=== PATIENT | female | born 1945 | race Caucasian/White ===

== ENCOUNTER → 2018-03-08 12:49 | Outpatient (CLI) | payer MEDICARE, SELFPAY ==
--- NOTE | 2018-03-08 12:53 | BD_ITS ---
STUDY: DUAL ENERGY X-RAY ABSORPTIOMETRY / DXA REASON FOR EXAM: Female, 72 years old. The patient is postmenopausal. Loss of height. TECHNIQUE: Bone Mineral Density (BMD) measurements of both forearms were obtained. The patient is status post bilateral hip replacement. COMPARISON: None. FINDINGS: Right Forearm: g/cm2 (0.949) / T-score (0.7) / Z-score (2.6) Left Forearm: g/cm2 (0.993) / T-score (1.2) / Z-score (3.1) BD/Dexa Bone Density/Append Skel IMPRESSION: The patient is considered normal as outlined below according to World Ervin Organization (WHO) criteria with a low fracture risk. Reference Information: The T-score is the number of standard deviations above or below the standard which is normal for young adults at their peak bone mineral density. The World Health Organization (WHO) interprets the T-scores as follows: Above -1 Normal bone density Between -1 and -2.5 Osteopenia Equal to / or below -2.5 Osteoporosis As a practical clinical guideline, osteopenia may be graded as follows: Mild -1 through -1.5 Moderate -1.6 through -2.0 Severe -2.1 through -2.4 The Z-score is the number of standard deviations above or below age-matched controls. A Z-score of less than -1.5 would be considered abnormal. References: 1. NIH Osteoporosis and Related Bone Diseases http://www.osteo.org 2. International Society for Clinical Densitometry http://www.iscd.org 3. National Osteoporosis Foundation http://www.nof.org Electronically Signed: Bo Chan MD at 9:26 EDT Tel [phone], Service support ,
--- NOTE | 2018-03-08 12:54 | BI_ITS ---
MAMMOGRAPHY - BILATERAL SCREENING REASON FOR EXAM: Female, 72 years old. Routine annual screening examination. PERTINENT HISTORY: Non-contributory. TECHNIQUE: Digital bilateral breast shawn (3D mammographic acquisition) in the CC and MLO projections. 2-D mediolateral oblique (MLO) and craniocaudad (CC) views of both breasts were obtained. CAD: Full Field Digital Mammography with Computer Added Detection was performed. COMPARISON: Comparison is made with prior study dated July 06, 2016 and June 18, 2015. FINDINGS: Breast Composition: The breasts are almost entirely fatty. There are no dominant masses or suspicious calcifications. No other significant abnormalities are identified. There has been no significant change since the prior study. BI/SCREENING MAMM (CAD), BILAT IMPRESSION: Stable bilateral screening mammogram. Yearly follow-up mammogram recommended. (A) ASSESSMENT CATEGORY: BIRADS Category 1: Negative. A letter regarding these results will be sent to the patient by the facility within 30 days. Approximately 10% of breast cancers are not detected by mammography. A normal mammogram should not delay biopsy of a clinically suspicious abnormality. [id number] Electronically Signed: Bo Chan MD at 8:37 EDT Tel [phone], Service support ,
== END ==
PROVIDERS: Family Provider Internal Medicine; PCP Internal Medicine; Visit Provider Internal Medicine
DX: Z12.31 Encounter for screening mammogram for malignant neoplasm of breast (principal); Z78.0 Asymptomatic menopausal state
CPT/HCPCS: 77063; 77067; 77081

== ENCOUNTER → 2019-01-08 10:49 | Outpatient (CLI) | payer MEDICARE, SELFPAY ==
[2017-01-21 15:50] VITALS: BMI 50.3
[2019-01-08 12:17] LABS: Color, Urine Yellow (Yellow); Glucose, Dipstick Normal (Normal); Ketone-Dipstick Negative (Negative); Leukocyte Esterase-Dipstick 100 /ul (Negative); Nitrite-Dipstick Negative (Negative); Occult Blood-Urine Negative /ul (Negative); Protein-Dipstick 15 mg/dl (Negative); Specific Gravity, Urine 1.025 (1.002-1.030); Urine Bilirubin Dipstick Negative (Negative); Urine Clarity Sl. Cloudy (Clear); Urine Urobilinogen Normal (Normal)
[2019-01-08 12:26] LABS: Absolute Lymphocyte Count 1.03 X10^3/ul (0.83-4.51); Absolute Neutrophil Count 9.6 X10^3/uL (2.0-7.7); Basophil# 0.02 X10^3/uL; Basophil% 0.2 % (0-1); Eosinophil# 0.37 X10^3/uL; Hematocrit 39.7 % (37-47); Hemoglobin 11.7 g/dl (12.0-15.0); Lymphocyte # 1.03 X10^3/ul (4.0); Lymphocyte % 8.3 % (19-41); Mean Corp Hgb Conc 29.5 g/gl (32-36); Mean Corpuscular Hgb 23.9 pg (27.0-32.0); Mean Corpuscular Volume 81.2 fL (81-99); Mean Platelet Vol. 9.1 fl (6.2-12.0); Monocyte# 1.35 X10^3/uL; Monocyte% 10.8 % (0-10); Neutrophil # 9.64 X10^3/uL (2.7-7.7); Neutrophil % 77.3 % (47-70); Platelet Count 484 K/mm3 (150-450); RBC Distribution Width CV 16.3 % (11.6-14.6); RBC Distribution Width SD 47.7 fl (35.1-43.9); Red Blood Count 4.89 M/mm3 (4.2-5.4); White Blood Count 12.5 K/mm3 (4.4-11.0)
[2019-01-08 12:36] LABS: Microalbumin,Random Urine 13.2 mg/L (NO RANGE EST.); Microalbumin:Creatinine Ratio 6.7 mg/g CRE (<30 mg/g CRE)
[2019-01-08 12:38] LABS: POSITIVE COUNT NO; POSITIVE DIFFERENTIAL NO; POSITIVE MORPHOLOGY NO
[2019-01-08 12:55] LABS: Vitamin D,25 Hydroxy 34.7 ng/mL (29.95-100.01)
[2019-01-08 12:56] LABS: ALB/GLOB Ratio 0.5 RATIO (0.9-2.4); AST(SGOT) 14 U/L (15-37); Alanine Aminotransfer ALT/SGPT 14 U/L (13-56); Albumin, Serum 2.9 g/dL (3.2-5.0); Alkaline Phosphatase 103 U/L (45-117); Anion Gap 10 (5-15); BUN 13 mg/dL (7-18); BUN/Creat Ratio 14.7 RATIO (10-20); Chloride 101 mmol/L (98-107); Creatinine, Serum 0.89 mg/dL (0.55-1.02); EST Glomerular Filtration Rate 67 mL/min (>60); Est Glom Filt Rate - Afr Amer 81 mL/min (>60); Globulin 5.3 g/dL (2.2-4.2); Glucose 91 mg/dL (74-106); Potassium 4.2 mmol/L (3.5-5.1); Protein, Total 8.2 g/dL (6.4-8.2); Sodium Level 140 mmol/L (136-145); Thyroid Stim Hormone (TSH) 2.84 uIU/mL (0.358-3.74)
[2019-01-09 20:07] LABS: CHOLESTEROL TOTAL 118 mg/dL (100-199); HDL-C 61 mg/dL (>39); HDL-P TOTAL 32.5 umol/L (>=30.5); SMALL LDL-P 259 nmol/L (<=527); TRIGLYCERIDES 77 mg/dL (0-149)
[2019-01-11 09:26] LABS: INSULIN RESISTANCE SCORE <25 (<=45); LDL SIZE 20.6 nm (>20.5); LDL-C 42 mg/dL (0-99); LDL-P 438 nmol/L (<1000)
== END ==
PROVIDERS: Family Provider Internal Medicine; PCP Internal Medicine; Referring Provider Internal Medicine; Visit Provider Internal Medicine
DX: E11.29 Type 2 diabetes mellitus with other diabetic kidney complication (principal); E11.65 Type 2 diabetes mellitus with hyperglycemia; E78.00 Pure hypercholesterolemia, unspecified; E55.9 Vitamin D deficiency, unspecified
CPT/HCPCS: 36415; 80053; 80061; 81002; 82043; 82306; 82570; 83704; 84443; 85025

== ENCOUNTER 2019-03-05 11:51 | Inpatient (IN) | payer MEDICARE, SELFPAY ==
[2019-03-05] VITALS (12 sets, daily range): BP systolic 74–122; BP diastolic 31–68; PULSE 68–108; RESP 14–20; TEMP 36.4–36.6; O2SAT 94–99; BMI 43.8; BMI 43.4
[2019-03-05 13:11] LABS: Absolute Lymphocyte Count 1.07 X10^3/ul (0.83-4.51); Absolute Neutrophil Count 18.6 X10^3/uL (2.0-7.7); Basophil# 0.01 X10^3/uL; Hematocrit 38.4 % (37-47); Hemoglobin 12.5 g/dl (12.0-15.0); Lymphocyte # 1.07 X10^3/ul (4.0); Mean Corp Hgb Conc 32.6 g/gl (32-36); Mean Corpuscular Hgb 23.7 pg (27.0-32.0); Mean Corpuscular Volume 72.9 fL (81-99); Monocyte# 1.49 X10^3/uL; Neutrophil # 18.63 X10^3/uL (2.7-7.7); Neutrophil % 87.3 % (47-70); POSITIVE COUNT NO; POSITIVE DIFFERENTIAL NO; POSITIVE MORPHOLOGY NO; Platelet Count 353 K/mm3 (150-450); RBC Distribution Width CV 17.5 % (11.6-14.6); RBC Distribution Width SD 45.8 fl (35.1-43.9); Red Blood Count 5.27 M/mm3 (4.2-5.4); White Blood Count 21.4 K/mm3 (4.4-11.0)
[2019-03-05] MEDS: 0.9% Normal Saline 1,000 ML 1000 ML IV ×2 (13:13→14:40)
--- NOTE | 2019-03-05 13:16 | ED.RN ---
TRIAGE CHARTED BY THIS RN, FINGERPRINT SIGNED ON ANOTHER RN.
--- NOTE | 2019-03-05 13:22 | ED.DCSUM_ITS ---
History of Present Illness Chief Complaint: Dizziness Detail of Chief Complaint: Patient's definition of dizziness lightheadedness and wooziness with standi Informant: Patient Onset: Yesterday Context: Sudden Onset Timing: Intermittent Quality: Orthostatic Location: Home Current Severity: - - Absent Maximum Severity: Severe Worsened by: With standing Relieved by: Nothing Associated Symptoms: Vomiting last evening and diarrhea last evening and this morning Narrative: Patient is an elderly woman who presents with orthostatic symptoms. She reports vomiting and diarrhea that started last evening. She states her blood pressure medication dose was doubled several weeks ago. She reports poor p.o. intake. She does report dry mouth and thirst. She also reports blurred vision. She denies headache. Denies trouble with speech or swallowing. She denies auditory symptoms. She denies cardiac or respiratory symptoms. She denies dysuria, frequency or urgency. She does report decreased urine output. She has wraps both legs secondary lymphedema. She has history of peripheral arterial disease. She states she saw her primary care provider 2 to 3 weeks ago. Prior similar symptoms: No Recent Illness/Hospitalization: No - Past Medical History (1) Osteoarthritis Status: Acute (2) Dyslipidemia Status: Chronic (3) Essential hypertension Status: Chronic (4) History of gastroesophageal reflux (GERD) Status: Chronic (5) History of irritable colon Status: Chronic (6) Morbid obesity Status: Chronic (7) Type II diabetes mellitus Status: Chronic Past Medical History - Allergies and Home Meds Allergies/Adverse Reactions: Allergies chlorhexidine Allergy (Verified 03/05/19 11:56) Unknown Iodinated Contrast- Oral and IV Dye [CONTRASTS] Allergy (Verified 03/05/19 11:56) Other iodine Allergy (Verified 03/05/19 11:56) Unknown Primary Care Physician: Elena Mims DO [Primary Care Provider] - Prior records reviewed: Yes Surgical History: total hip arthroplasty Lives: Alone Smoking Status: Never smoker Alcohol: None - Family History Maternal Family History: Reports: No pertinent history Review of Systems General: Denies: Chills, Fever, Sweats Eyes: Reports: Blurred Vision - bilaterally. Denies: Visual changes - bilaterally, Diplopia ENT: Denies: Rhinorrhea, Sore throat Cardiovascular: Denies: Chest pain, Palpitations Respiratory: Denies: Dyspnea, Cough, Dyspnea on exertion Gastrointestinal: Reports: Abdominal pain, Nausea, Vomiting, Diarrhea. Denies: Melena, Hematochezia Genitourinary: Denies: Dysuria, Hematuria, Frequency Musculoskeletal: Denies: Myalgias, Arthralgias, Back pain, Extremity Pain Skin: Denies: Rash, Wounds Neurological: Denies: Headache, Weakness, Numbness Endocrine: Denies: Polyuria, Polydipsia Hematologic: Denies: Easy bruising, Easy bleeding Allergy: Denies: Uticaria Physical Exam Vital Signs/Narrative: Vital Signs Temp Pulse Resp BP Pulse Ox 03/05/19 13:13 68 97/31 L 03/05/19 11:52 97.6 F L 81 14 107/54 L 99 Inital Vital Signs reviewed: Yes General: Well nourished, Well developed, Unkempt - Patient has feces on her hands and ankles., No Acute Distress Head: Normocephalic, Atraumatic Eyes: Perrl, EOMI, Pale conjunctiva. Negative for: Scleral icterus ENT: No rhinorrhea, TM's clear, Dry mucous membranes Neck: Supple, Nontender, No lymphadenopathy, No JVD Cardiovascular: Regular rate, Regular rhythm, No murmurs, Normal S1, Normal S2 Respiratory: No distress, CTA bilaterally Abdomen: Soft, Nondistended, Normal bowel sounds, No masses, Tender. Negative for: Nontender, Guarding, Rebound tenderness, Hepatomegaly, Splenomegaly, Mass, Pulsatile mass, Ventral hernia, Umbilical hernia Back: Nontender, Normal Inspection Extremities: Nontender, Edema, - - Stigmata of venous stasis and peripheral arterial disease. There was dopplerable flow with no palpable pulses. Skin: Pallor, Rash - Venous stasis dermatitis lower extremities Neurological: Alert, Oriented x3, Cranial nerves II-XII grossly intact, Normal Sensation, Normal DTR Psychological: Normal affect Diagnostic/Tx/Re-eval Laboratory Results 03/05/19 03/05/19 13:00 13:00 WBC 21.4 H RBC 5.27 Hgb 12.5 Hct 38.4 MCV 72.9 L MCH 23.7 L MCHC 32.6 RDW 17.5 H RDW Differential 45.8 H Plt Count 353 MPV 9.0 Immature Gran % (Auto) 0.700 Neut % (Auto) 87.3 H Lymph % (Auto) 5.0 L [place] % (Auto) 7.0 Eos % (Auto) 0.0 Baso % (Auto) 0.0 Absolute Neuts (auto) 18.6 H Absolute Lymphs (auto) 1.07 Total Counted Not Reportable Sodium 129 L Potassium 4.4 Chloride 102 Carbon Dioxide 18.0 L Anion Gap 9 BUN 94 H Creatinine 4.53 H Estim Creat Clear Calc 8.88 Est GFR (MDRD) Af Amer 12 L Est GFR (MDRD) Non-Af 10 L BUN/Creatinine Ratio 20.8 H Glucose 187 H Calcium 9.1 - Medical Decision Making Clinically patient is dehydrated. Blood pressure is low for patient. This may be a combination of blood pressure med the patient change and dehydration. Appropriate blood work was obtained to assess electrolytes specifically potassium, CO2 anion gap and renal function. Since she appears pale CBC was obtained to assess H&H. Patient's creatinine was 0.89. Creatinine is greater than 4. Sodium is 129. White count is 21.4 thousand. Will discuss case with hospitalist for admission. Suspect white count is secondary to the nausea, vomiting diarrhea. Since she is only had 3 watery stools in 24 hours doubt she remembers any colitis. The renal failure probably is exacerbated by the low blood pressure from blood press ure medication adjustment. I was informed at 1410 that yumi called and said his clean because of profuse diarrhea. In light of this new information will obtain stool for C. difficile. And in light of new history with profuse diarrhea will administer 1 dose of vancomycin in the department. Patient responded to fluid boluses. Most recent blood pressure is 123 systolic. - Critical Care Time Critical care time (excluding procedures): 30-74 minutes - 31 minutes, Discussing w/Patient &/or Family/Sales Officer, Discussing w/Consultants, Arranging Admission or Transfer ED Disposition - Plan for ED Patient: Disposition: Acute Care Hospital [facility] Diagnosis: Acute kidney injury (nontraumatic), Vomiting and diarrhea, Hyponatremia Referrals: Elena Mims DO [Primary Care Provider] -
[2019-03-05 13:23] LABS: Anion Gap 9 (5-15); BUN 94 mg/dL (7-18); BUN/Creat Ratio 20.8 RATIO (10-20); Calcium,Total 9.1 mg/dL (8.5-10.1); Chloride 102 mmol/L (98-107); Creatinine, Serum 4.53 mg/dL (0.55-1.02); EST Glomerular Filtration Rate 10 mL/min (>60); Est Glom Filt Rate - Afr Amer 12 mL/min (>60); Estimated Creatinine Clearance 8.88 ml/min; Glucose 187 mg/dL (74-106); Potassium 4.4 mmol/L (3.5-5.1); Sodium Level 129 mmol/L (136-145)
[2019-03-05 14:37] LABS: Lactic Acid 1.4 mmol/L (0.4-2.0)
--- NOTE | 2019-03-05 15:09 | PCM.HP.STD ---
Problem List (1) Acute kidney injury (nontraumatic) Status: Acute (2) Hyponatremia Status: Acute (3) Microscopic colitis Status: Chronic (4) Osteoarthritis Status: Chronic (5) Dyslipidemia Status: Chronic (6) Essential hypertension Status: Chronic (7) History of gastroesophageal reflux (GERD) Status: Chronic (8) Morbid obesity Status: Chronic (9) Type II diabetes mellitus Status: Chronic (10) Lymphedema Status: Chronic History of Present Illness Date of Admission: 03/05/19 Chief Complaint: Fatigue The patient is a 73 year old F with pmhx of microscopic colitis, pt of Dr. Hubbard, DMt2 with morbid obesity, HLD, HTN, osteoarthritis, lymphedema, who presented to the ER by squad with increased weakness and fatigue. She has had severe nausea vomiting and diarrhea that began yesterday. She states this began after eating a frosty. She initially had reported 3 bouts of diarrhea, however she was covered in stool and her land lord reported that her home was covered in stool and that she could not return until it had been cleaned. She has been unable to keep down PO intake. She does not take anything for microscopic colitis. She has no fever, chills, bloating, abdominal pain. She denies hx C diff. She denies sick contacts. She denies recent abx use. She has not been recently hospitalized. [] Past Medical History Past Medical History (Chronic Problems): Chronic Problems Microscopic colitis (Chronic) Lymphedema (Chronic) Osteoarthritis (Chronic) Type II diabetes mellitus (Chronic) Dyslipidemia (Chronic) Essential hypertension (Chronic) History of gastroesophageal reflux (GERD) (Chronic) History of irritable colon (Chronic) Morbid obesity (Chronic) Allergies chlorhexidine Allergy (Verified 03/05/19 11:56) Unknown Iodinated Contrast- Oral and IV Dye [CONTRASTS] Allergy (Verified 03/05/19 11:56) Other iodine Allergy (Verified 03/05/19 11:56) Unknown Home Medications: Ambulatory Orders Medication Instructions Recorded Folic Acid 1 mg PO DAILY@0800 01/21/17 Metoprolol Succinate [Toprol Xl] 100 mg PO DAILY 01/21/17 Rosuvastatin Calcium [Crestor] 40 mg PO MOWEFR 01/21/17 Acetaminophen [Tylenol 8 Hour] 650 mg PO PRN PRN 03/05/19 Alendronate Sodium 70 mg PO FAUSTIN 03/05/19 Amlodipine Besylate 5 mg PO DAILY 03/05/19 Calcium Carb/Vitamin D 1 tab PO BID 03/05/19 [Caltrate-600 With Vit D Tab] Cholecalciferol (VIT D3) [Vitamin 3,000 unit PO DAILY 03/05/19 D] Cholecalciferol (Vitamin D3) 5,000 unit PO DAILY 03/05/19 [Vitamin D3] Dulaglutide [Trulicity] 1 mg SQ FR 03/05/19 Furosemide 20 mg PO DAILY 03/05/19 Insulin Degludec [Tresiba 32 units SQ DAILY 03/05/19 Flextouch U-200] Lisinopril 20 mg PO BID 03/05/19 Metformin(XR) [Glucophage Xr] 1,000 mg PO BID 03/05/19 Pioglitazone HCl 15 mg PO DAILY 03/05/19 Potassium Chloride [Klor-Con M20] 20 meq PO BID 03/05/19 Surgical History: total hip arthroplasty, total knee arthroplasty, tonsillectomy, - - right elbow bone graft Psychiatric History: No pertinent psych hx 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 Denies: Chills, Fever, Weight Change HEENT: Denies: Head Aches, Sinus Congestion, Sinus Drainage Cardiovascular: Denies: Chest Pain, Chest Pressure, Chest Tightness, Edema, Heaviness, Light Headedness, Palpitations Respiratory: Denies: Cough, Shortness of breath at rest, Sputum production Gastrointestinal: Reports: Diarrhea, Nausea, Vomiting. Denies: Abdominal Pain Genitourinary: Denies: Dysuria Musculoskeletal: Denies: Joint Pain, Joint Tenderness Skin: Denies: Rash, Wounds Neurological: Denies: Numbness, Tingling, Focal weakness Psychiatric: Denies: Anxiety, Depression, Homicidal Ideations, Suicidal Ideations Hematologic/ Lymphatic: Denies: Easy Bruising, Easy Bleeding VTE Information - Inpt Only VTE Present on Admission: No VTE Pharm Prophylaxis ordered?: Yes Patient Problems: Active and Suspected Problems Acute kidney injury (nontraumatic) (Acute) Vomiting and diarrhea (Acute) Hyponatremia (Acute) - Physical Exam General: Alert, Oriented x3, Cooperative HEENT: Atraumatic, PERRLA, EOMI, Normocephalic Neck: Supple, No JVD, Negative Carotid Bruits Lungs: Clear to auscultation, Normal air movement Cardiovascular: Regular rate, No murmurs Abdomen: Bowel Sounds Present, Soft, Non Tender Extremities: Capillary Refill Less than 3 Seconds, Edema - L>R, venous changes, serous drainage staining paper towels wrapped around legs. Skin: No rashes, No breakdown Musculoskeletal: No Tenderness to Palpation of Joints or Extremities Neurological: Cranial nerves II-XII grossly intact Psych/Mental Status: Normal Affect, Appropriate Vital Signs Temp Pulse Resp BP Pulse Ox 97.6 F L 71 17 122/52 H 99 03/05/19 11:52 03/05/19 14:08 03/05/19 14:08 03/05/19 14:08 03/05/19 14:08 Oxygen Delivery Method Room Air Weight: 239 lb 13.807 oz Body Mass Index (BMI) 43.8 Laboratory Tests Past 24 Hrs 03/05/19 03/05/19 03/05/19 13:00 13:00 14:00 WBC 21.4 H RBC 5.27 Hgb 12.5 Hct 38.4 MCV 72.9 L MCH 23.7 L MCHC 32.6 RDW 17.5 H RDW Differential 45.8 H Plt Count 353 MPV 9.0 Immature Gran % (Auto) 0.700 Neut % (Auto) 87.3 H Lymph % (Auto) 5.0 L [place] % (Auto) 7.0 Eos % (Auto) 0.0 Baso % (Auto) 0.0 Absolute Neuts (auto) 18.6 H Absolute Lymphs (auto) 1.07 Total Counted Not Reportable Sodium 129 L Potassium 4.4 Chloride 102 Carbon Dioxide 18.0 L Anion Gap 9 BUN 94 H Creatinine 4.53 H Estim Creat Clear Calc 8.88 Est GFR (MDRD) Af Amer 12 L Est GFR (MDRD) Non-Af 10 L BUN/Creatinine Ratio 20.8 H Glucose 187 H Lactic Acid 1.4 Calcium 9.1 Assessment/Plan All Active Problems Acute kidney injury (nontraumatic) (Acute) Vomiting and diarrhea (Acute) Hyponatremia (Acute) Status post total hip replacement, right (Acute) 1. OSVALDO 2/2 dehydration 2/2 unspecified colitis / gastroenteritis - 2 days hx N/V/D. BUN/Cr largely increased, with hyponatremia. WBC is elevated at 21.4. No fever. LA negative. Possibly viral gastroenteritis, or worsening of underlying microscopic colitis which she takes nothing for. Given the volume of diarrhea provide vanc for C diff until ruled out. Check stool cx and Cdiff. IV fluids. supportive care, carefully advance diet. Hold lisinopril, other nephrotoxins 2. DMt2 with morbid obesity - hold orals. SSI. 3. Lymphedema - c/s wound care. She needs outpatient f/u with the wound care clinic she is not adequately caring for her legs. 4. HTN - hold orals for now given borderline low BP and dehydration 5. HLD - hold statin DVT ppx: heparin DC planning: PTOT This patient was seen by Carlos Dumont PA-C under the supervision of Dr. Graham.
--- NOTE | 2019-03-05 15:35 | ED.RN ---
PT ARRIVED WITH MULTIPLE DRIED LAYERS OF STOOL OVER MOST OF BODY. YEAST AND EXCORIATION NOTED UNDER ABD AND GROIN FOLDS. HANDS COVERED IN DRIED STOOL. LEGS WRAPPED WITH PAPER TOWELS, NEWSPAPERS AND COVERED WITH DWIGHT WRAPS. PT STATES SHE BATHES BY WASHING OUT OF THE SINK. ATTEMPTED TO STRAIGHT CATH PT X3, UNABLE TO OBTAIN URINE. ED MD AWARE, NO FURTHER ORDERS.
[2019-03-05 17:20] LABS: Bedside Glucose 124 mg/dL (70-110)
[2019-03-05] MEDS: 0.9% Normal Saline 1,000 ML 175 ML IV ×2 (17:23→23:12)
--- NOTE | 2019-03-05 17:30 | CM.ED ---
Social Work Assessment Referral Date: 03/05/19 Date of Assessment: 03/05/19 Informant: INVESTIGATION SPECIALIST Reason for Consult: DISCHARGE PLANNING/SOCIAL CONCERNS Information obtained from: NURSING, PATIENT, AND PATIENT'S CALIXTOECEMONROE . Living Arrangements: PATIENT LIVES HOME ALONE IN AN APARTMENT DME: WALKER, 2 CANES, GLUCOMETER Employment/Financial: RETIRED Supports: PATIENT HAS SUPPORT FROM FAMILY. Social/Family Stressors: PATIENT REPORTS SHE AND NIECES HAVE BEEN CARING FOR HER 97 Y/O FATHER. PATIENT STATES ASSISTS WITH ALL TRANSPORTATION NEEDS FOR HER FATHER. PATIENT STATES OVER THE LAST SEVERAL MONTHS HAS NOT BEEN FEELING WELL AND HAS FELL BEHIND ON KEEPING UP HER HOUSEHOLD. DISCUSSED PATIENT'S HOME CONDITIONS AND CONDITION OF PATIENT UPON ARRIVAL TO EMERGENCY DEPT. PATIENT GAVE PERMISSION FOR THIS WORKER TO CALL IRINA TO DISCUSS SAFE D/C PLANNING. Mental Health History: DENIES ANY HX Substance Abuse History: DENIES ANY HX Interventions: SOCIAL SERVICE ASSESSMENT EDUCATION ON D/C PLANNING RECEIVED PERMISSION TO CALL PATIENT'S NIECE, MONROE CASAREZ TO DISCUSS D/C PLAN AND NEEDS. Assessment: PATIENT IS A 73 Y/O FEMALE WHO PRESENTS TO THE EMERGENCY DEPARTMENT BY SQUAD. PATIENT WITH ACUTE KIDNEY INJURY AND DIARRHEA. PATIENT LIVES HOME ALONE IN A 1 FLOOR APARTMENT WITH 1 STEP TO ENTER. PATIENT REPORTS OVER THE LAST SEVERAL MONTHS HAS NOT FELT WELL AND HAS BEEN UNABLE TO CARE FOR SELF AND HOUSEHOLD. PATIENT OPEN TO REHAB OR HOME HEALTH SERVICES UPON D/C IF RECOMMENDED-([facility]). DISCUSSED PATIENT CONDITION UPON VISIT AND CONCERNS REGARDING HOME CONDITION. PATIENT AWARE AND GAVE PERMISSION FOR THIS WORKER TO CALL IRINA TO DISCUSS SAFE D/C PLANNING. CALL TO PATIENT'S MONROE AREVALO. PER MONROE, WAS MADE AWARE OF PATIENT'S HOME CONDITION BY PATIENT'S LANDLORD AND FRIEND AND IS GOING OVER TO PATIENT'S HOME THIS EVENING TO START CLEANING UP. IRINA RODRIGUES HAS NOT BEEN TO PATIENT'S HOME IN SEVERAL YEARS. CALIXTOTAMMY WILL ASSIST WITH SAFE D/C PLANNING AND PLANS ONCE PATIENT IS HOME TO ASSIST PATIENT IN FINDING A SUPERVISOR METAL PLACING TO ASSIST WITH CLEANING. INFORMED NITAMMY A SUBWAY CONDUCTOR WILL BE FOLLOWING FOR SAFE D/C PLANNING. PLAN: ADMITTED TO PCU
--- NOTE | 2019-03-05 17:34 | CASEMGMT ---
RN CM Assessment Introduced role of RN CM and SW to patient.? Patient is alert, oriented and able?to participate in RN CM Assessment. ?Care providers, pharmacy, and demographics verified. Presentation: Orthostatic Symptoms, +N/V/D, Blurred Vision, Poor PO intake, Decreased UO. Admit Dx: OSVALDO, Diarrhea Re-Admit: No Barriers/Issues: This fiction and nonfiction prose writer notified by FINANCIAL AID that patient had multiple layers of stool when cleaned on body, appeared ill kept and was notified by patient niece that per patient landlord could not return back to her apartment until it gets cleaned. During conversation with patient, states that she has not felt well the past few days and was supposed to taker her father to his appointment but wanted to sleep, states that she has neglected the house work for the past few months and has difficulty performing her ADL's, states that she drives her 97yo father to his appointments and has two nieces, one a nurse that help care for her father. Patient has not applied to [employer] in the past and per reported monthly income may not qualify financially d/t making too much. States has friend Odilon and another friend Alice for support. Patient open to HH PT and Aide on DC, gives Dry Cell Battery Assembler permission to contact niece to verify if able to return back home/safe DC plan. Please refer to SW note. PCP: Elena Mims Specialists: None Preferred Pharmacy: [facility] Insurance: [employer] [facility] Rx Benefit:?Yes LNOK: Father Ashish Cordova LW/HPOA: Has LW- but not filled out, Would like Information on HPOA. Living Arrangements:?Lives alone in a Ground Level Apartment, 1 step to enter ADL?s: Independent with ambulation and ADL's Transportation: Drives self, DC with friend Odilon. DME: Glucometer, 2 canes, Walker- said left it in the ER. HHC: None, States if HH needed no preference and ok with [facility] HHC SNF: Past TCU, States if SNF needed prefers TCU Goal: Home, See above Issue. DC PLAN: Home with possible HH PT and Aide. FIFI Doran
[2019-03-05] MEDS: Atorvastatin Calcium 80 MG Tablet PO (23:01)
[2019-03-05] MEDS: 0.9% NaCl Peripheral Flush Adult/Peds IV (23:13)
[2019-03-06] VITALS (16 sets, daily range): BP systolic 91–140; BP diastolic 38–60; PULSE 61–141; RESP 14–18; TEMP 36.4–36.7; O2SAT 95–100
[2019-03-06 00:56] LABS: Bedside Glucose 119 mg/dL (70-110)
[2019-03-06] MEDS: 0.9% Normal Saline 1,000 ML 175 ML IV ×2 (02:32→08:07)
--- NOTE | 2019-03-06 04:49 | NURSING ---
Pt bladder scanned at this time d/t low output. Bladder scan shows 71 mL.
[2019-03-06 06:04] LABS: Anion Gap 13 (5-15); BUN 89 mg/dL (7-18); BUN/Creat Ratio 17.8 RATIO (10-20); Calcium,Total 7.6 mg/dL (8.5-10.1); Chloride 112 mmol/L (98-107); Creatinine, Serum 4.99 mg/dL (0.55-1.02); EST Glomerular Filtration Rate 9 mL/min (>60); Est Glom Filt Rate - Afr Amer 11 mL/min (>60); Estimated Creatinine Clearance 7.69 ml/min; Glucose 155 mg/dL (74-106); Potassium 4.6 mmol/L (3.5-5.1); Sodium Level 138 mmol/L (136-145)
[2019-03-06 06:10] LABS: Absolute Lymphocyte Count 0.41 X10^3/ul (0.83-4.51); Absolute Neutrophil Count 19.1 X10^3/uL (2.0-7.7); Basophil# 0.01 X10^3/uL; Basophil% 0.1 % (0-1); Hematocrit 36.7 % (37-47); Hemoglobin 11.8 g/dl (12.0-15.0); Lymphocyte # 0.41 X10^3/ul (4.0); Lymphocyte % 2.1 % (19-41); Mean Corp Hgb Conc 32.2 g/gl (32-36); Mean Corpuscular Hgb 24.1 pg (27.0-32.0); Mean Corpuscular Volume 75.1 fL (81-99); Mean Platelet Vol. 9.2 fl (6.2-12.0); Monocyte# 0.29 X10^3/uL; Monocyte% 1.5 % (0-10); Neutrophil % 96.1 % (47-70); Platelet Count 264 K/mm3 (150-450); RBC Distribution Width CV 17.5 % (11.6-14.6); RBC Distribution Width SD 47.6 fl (35.1-43.9); Red Blood Count 4.89 M/mm3 (4.2-5.4); White Blood Count 19.9 K/mm3 (4.4-11.0)
[2019-03-06 06:11] LABS: Differential Indicated SCAN CRITERIA MET; POSITIVE COUNT NO; POSITIVE DIFFERENTIAL YES; POSITIVE MORPHOLOGY NO
[2019-03-06] MEDS: Insulin Lispro 100 UNIT/ML INSULN.PEN SQ ×4 (07:07→21:45)
--- NOTE | 2019-03-06 07:09 | PCM.CONS.GEN ---
Problem List (1) Tinea unguium Status: Chronic (2) Toe pain, right Status: Chronic (3) Toe pain, left Status: Chronic (4) Type II diabetes mellitus Status: Chronic Reason for Consult Date of Consultation: 03/06/19 Reason for Consultation: Long thick painful toenails History of Present Illness: The patient is a 73 year old F with multiple comorbidities was seen bedside this morning for long thick painful toenails which she is unable to safely traumatic her own. She usually sees Dr. Butler in [place]. She was admitted for dehydration and fatigue. Her foot pain is mild. She denies claudication or rest paresthesias. She also has a medical history of lymphedema and leg weeping; wound nurse is also on consultation. She relates she usually does wear compression garments. She denies other pedal complaints at this time. Past Medical History Past Medical History (Chronic Problems): Chronic Problems Microscopic colitis (Chronic) Lymphedema (Chronic) Tinea unguium (Chronic) Toe pain, right (Chronic) Toe pain, left (Chronic) Osteoarthritis (Chronic) Type II diabetes mellitus (Chronic) Dyslipidemia (Chronic) Essential hypertension (Chronic) History of gastroesophageal reflux (GERD) (Chronic) History of irritable colon (Chronic) Morbid obesity (Chronic) Allergies chlorhexidine Allergy (Verified 03/05/19 11:56) Unknown Iodinated Contrast- Oral and IV Dye [CONTRASTS] Allergy (Verified 03/05/19 11:56) Other iodine Allergy (Verified 03/05/19 11:56) Unknown Home Medications: Ambulatory Orders Medication Instructions Recorded Folic Acid 1 mg PO DAILY@0800 01/21/17 Metoprolol Succinate [Toprol Xl] 100 mg PO DAILY 01/21/17 Rosuvastatin Calcium [Crestor] 40 mg PO MOWEFR 01/21/17 Acetaminophen [Tylenol 8 Hour] 650 mg PO PRN PRN 03/05/19 Alendronate Sodium 70 mg PO FAUSTIN 03/05/19 Amlodipine Besylate 5 mg PO DAILY 03/05/19 Calcium Carb/Vitamin D 1 tab PO BID 03/05/19 [Caltrate-600 With Vit D Tab] Cholecalciferol (VIT D3) [Vitamin 3,000 unit PO DAILY 03/05/19 D] Cholecalciferol (Vitamin D3) 5,000 unit PO DAILY 03/05/19 [Vitamin D3] Dulaglutide [Trulicity] 1 mg SQ FR 03/05/19 Furosemide 20 mg PO DAILY 03/05/19 Insulin Degludec [Tresiba 32 units SQ DAILY 03/05/19 Flextouch U-200] Lisinopril 20 mg PO BID 03/05/19 Metformin(XR) [Glucophage Xr] 1,000 mg PO BID 03/05/19 Pioglitazone HCl 15 mg PO DAILY 03/05/19 Potassium Chloride [Klor-Con M20] 20 meq PO BID 03/05/19 Surgical History: total hip arthroplasty, total knee arthroplasty, tonsillectomy, - - right elbow bone graft Psychiatric History: No pertinent psych hx MARKETING SERVICES SPECIALIST History: No pertinent MARKETING SERVICES SPECIALIST history Lives: Alone Smoking Status: Never smoker Tobacco Use: Non-smoker Alcohol: None Drugs: None - *Family History Maternal History Items: - - RA Paternal History Items: Cancer - basal cell, Hypertension Review of Systems Constitutional: Reports: Fatigue. Denies: Chills, Fever Cardiovascular: Denies: Chest Pain, Claudication, Orthopnea Respiratory: Denies: Shortness of Breath Gastrointestinal: Denies: Nausea, Vomiting Musculoskeletal: Reports: - - Toenail pain. Denies: Foot Pain, Leg Pain Skin: Reports: Skin Changes, Wounds, - - Thickened toenails Neurological: Denies: Numbness, Tingling Hematologic/ Lymphatic: Denies: Easy Bruising, Easy Bleeding Patient Problems: Active and Suspected Problems Acute kidney injury (nontraumatic) (Acute) Vomiting and diarrhea (Acute) Hyponatremia (Acute) - Physical Exam General: Alert, Oriented x3, Cooperative HEENT: Atraumatic Extremities: Capillary Refill Less than 3 Seconds - All digits bilateral, No Calf Tenderness - Negative Lula and Mcdermott signs bilateral, Diminished Peripheral Pulses - Nonpalpable PT pulses bilateral with notable edema to ankle and leg level. Palpable DP pulses bilateral, Edema - consistent with venous insufficiency and lymphedema Skin: - - Toenails 1, 2, 3, 4, 5 are long thick dystrophic with subungual debris and pain with compression. No open lesions infection or necrosis bilateral foot. There is inflammation and skin peeling to bilateral legs with weeping drainage. No granulation tissue is exposed Musculoskeletal: No Tenderness to Palpation of Joints or Extremities, Muscle Wasting, - - Compartments soft to palpate bilateral lower extremities Neurological: - - Epicritic sensation is intact to light touch equal and symmetrical to foot and ankle dermatomes bilateral Psych/Mental Status: Normal Affect, Appropriate Vital Signs Temp Pulse Resp BP Pulse Ox 98.1 F 69 14 91/41 L 99 03/06/19 04:57 03/06/19 06:49 03/06/19 04:57 03/06/19 04:57 03/06/19 04:57 Oxygen Delivery Method Room Air Weight: 107.048 kg Body Mass Index (BMI) 43.4 Intake and Output for Last 24 Hours 03/04/19 03/05/19 03/06/19 23:59 23:59 23:59 Intake Total 1516 / 1516 Balance 1516 / 1516 Microbiology Past 72 Hours 03/05/19 16:27 C. difficile DNA Amplification - Final Stool 03/05/19 16:27 Stool Lactoferrin - Final Stool 03/05/19 16:27 Stool Occult Blood (ANDRES) - Final Stool Occult Blood Positive Laboratory Tests Past 24 Hrs 03/05/19 03/05/19 03/05/19 13:00 13:00 14:00 WBC 21.4 H RBC 5.27 Hgb 12.5 Hct 38.4 MCV 72.9 L MCH 23.7 L MCHC 32.6 RDW 17.5 H RDW Differential 45.8 H Plt Count 353 MPV 9.0 Immature Gran % (Auto) 0.700 Neut % (Auto) 87.3 H Lymph % (Auto) 5.0 L [place] % (Auto) 7.0 Eos % (Auto) 0.0 Baso % (Auto) 0.0 Absolute Neuts (auto) 18.6 H Absolute Lymphs (auto) 1.07 Total Counted Not Reportable Sodium 129 L Potassium 4.4 Chloride 102 Carbon Dioxide 18.0 L Anion Gap 9 BUN 94 H Creatinine 4.53 H Estim Creat Clear Calc 8.88 Est GFR (MDRD) Af Amer 12 L Est GFR (MDRD) Non-Af 10 L BUN/Creatinine Ratio 20.8 H Glucose 187 H Lactic Acid 1.4 Calcium 9.1 Magnesium 03/06/19 03/06/19 03/06/19 05:30 05:35 05:35 WBC 19.9 H RBC 4.89 Hgb 11.8 L Hct 36.7 L MCV 75.1 L MCH 24.1 L MCHC 32.2 RDW 17.5 H RDW Differential 47.6 H Plt Count 264 MPV 9.2 Immature Gran % (Auto) 0.200 Neut % (Auto) 96.1 H Lymph % (Auto) 2.1 L [place] % (Auto) 1.5 Eos % (Auto) 0.0 Baso % (Auto) 0.1 Absolute Neuts (auto) 19.1 H Absolute Lymphs (auto) 0.41 L Total Counted Not Reportable Sodium 138 Potassium 4.6 Chloride 112 H Carbon Dioxide 13.0 L Anion Gap 13 BUN 89 H Creatinine 4.99 H Estim Creat Clear Calc 7.69 Est GFR (MDRD) Af Amer 11 L Est GFR (MDRD) Non-Af 9 L BUN/Creatinine Ratio 17.8 Glucose 155 H Lactic Acid Calcium 7.6 L Magnesium Pending POC Glucose 03/05/19 03/05/19 22:59 17:06 POC Glucose 119 H 124 H Assessment/Plan All Active Problems Acute kidney injury (nontraumatic) (Acute) Vomiting and diarrhea (Acute) Hyponatremia (Acute) Status post total hip replacement, right (Acute) Tinea unguium versus onychauxis Right and left toe pain Diabetes Leg edema consistent with likely venous insufficiency or lymphedema with chronic skin changes I reviewed and discussed her case. Her toenails were debrided in thickness and length with a nail nipper x10 without incident. She elects to proceed with palliative care only at this time. She reports she is unable to safely perform this on her own. She will follow-up with Dr. Butler in the future for this service after she is discharged from the hospital. Wound nurse is on consultation and greatly appreciated. I recommend compression garments and elevation of limbs. I also recommend idle sitting or standing. Medical management per primary team. She was advised to follow-up on the outpatient basis as needed. I answered all her questions. Thank you very much for the consultation. Sabina Jain DPM, [facility] [phone]
[2019-03-06 07:21] LABS: Bedside Glucose 176 mg/dL (70-110)
[2019-03-06] MEDS: amLODIPine 5 MG Tablet PO (09:16)
[2019-03-06] MEDS: Folic Acid 1 MG Tablet PO (09:18)
[2019-03-06] MEDS: Lisinopril 20 MG Tablet PO (09:18)
[2019-03-06] MEDS: Metoprolol(XL)Succ 100 MG Tablet PO (09:18)
[2019-03-06] MEDS: Pioglitazone Hydrochloride 15 MG Tablet PO (09:18)
--- NOTE | 2019-03-06 09:46 | NURSING ---
wound photo: right lower leg
--- NOTE | 2019-03-06 09:47 | NURSING ---
wound photo: left lateral lower leg
--- NOTE | 2019-03-06 11:04 | CASEMGMT ---
TRI met with patient, introduced self and role at [facility]. Patient prefers to go home, but if therapy recommends SNF she will go. She said she takes her dad to [place] daily for radiation and has been helping care for him for awhile. She said she has been overwhelmed and just shut down. She has a friend and her niece will help her clean up. She then plans on hiring someone to help her clean on a regular basis. She said her other nieces will be transporting her dad to his appts while she recuperates. TRI asked her about Healthcare POA and she did want to do the documents. Completed HCPOA with patient. Copies were made original and copies given to patient. A copy was also placed in patient's chart. TRI told her we will see how she does with therapy to help determine where she should go at discharge. She gave SW permission to talk with her niece, Letha. Patient actually named her niece her POA. TRI called Letha. Introduced self and role at [facility]. She said she was at patient's home last night till midnight trying to clean it up. She said they still are not done. She said patient's landlord Galina is going to call around to try and find someone to come in and clean. ([phone]) She said she gets off work at 5 today and has to go to patient's dad's home. She sits with him until 630a the next day. She does not know how she will get the place cleaned in time for patient to return. TRI told her they are looking at tomorrow for discharge. TRI explained we will see how she does with therapy. TRI explained that if it looks like she needs rehab we could try and get her to a snf. However, her insurance would have to approve. TRI told her TRI can keep her updated. She thanked TRI. She is aware patient was going to name her HCPOA. TRI then reviewed patient's therapy notes. She did not walk far, however she cannot leave the room as she is on contact precautions. Therapy indicated likely home at d/c and patient is agreeable to home health. TRI spoke with patient and let her know home is likely the plan and she agreed this is what she wants. She understands she has to be homebound. She said her nieces will be taking her dad to his appts. TRI explained what insurance covers in regards to home health. TRI told her that a nurse, therapy, and an aide for personal care only. SW told her insurance will not pay for anyone to come out and clean. TRI asked her if she has anyone else that is helping her clean. She said her landlordGalina was going to help also. TRI told her that they are looking at d/c for tomorrow. She said she will have to finish cleaning when she gets home. TRI asked if it was okay for TRI to call her landlord to verify she can return home. She gave SW permission to call landlord. TRI told her SW can give her a list of private duty agencies that have aides available to come out and clean. TRI called patient's landlordGalina and left her a message requesting a return call. Plan: Likely home with home health, but need to confirm with landlord she can return to home before it is completely cleaned up. Khushi WATTERS MSW
[2019-03-06 11:20] LABS: Bedside Glucose 183 mg/dL (70-110)
--- NOTE | 2019-03-06 11:38 | US_ITS ---
STUDY: RENAL ULTRASOUND - COMPLETE REASON FOR EXAM: Female, 73 years old. Acute renal failure. TECHNIQUE: Ultrasound evaluation of the kidneys was performed with real-time and static benton-scale imaging. COMPARISON: Ultrasound abdomen 08/23/2012. CT abdomen and pelvis 07/02/2012. Ultrasound kidney 06/18/2009. FINDINGS: RIGHT KIDNEY: 10.0 x 4.6 x 4.9 cm. Normal cortical thickness 1.1 cm. Normal cortical echotexture. There is no mass, cyst or hydronephrosis. Small calculus of the inferior pole which may be a vascular calcification, or small calyceal calculus, nonobstructing. LEFT KIDNEY: 10.1 x 5 x 5.7 cm. Normal cortical thickness 1.5 cm. Normal cortical echotexture. There is no mass, cyst, calculus or process. BLADDER: Urinary bladder is decompressed and poorly characterized. US/Kidney and Bladder IMPRESSION: No acute sonographic abnormality of the kidneys. No apparent atrophy. Normal echotexture. Solitary 4 mm calcification in the inferior pole of the left kidney may represent a vascular calcification or a nonobstructing calyceal calculus. Electronically Signed: Layo Acosta MD at 14:20 EDT Tel , Service support ,
--- NOTE | 2019-03-06 11:39 | PCM.CONS.R ---
Problem List (1) Acute kidney injury (nontraumatic) Status: Acute Consultation - Renal 03/06/19 PCP/ Referring MD: Requesting physician: Dr Christianson Primary care physician: Elena Mims DO Reason for Consultation:: OSVALDO - History of Present Illness History of Present Illness: The patient is a 73 year old F who was admitted to the hospital yesterday with complaints of significant nausea, vomiting, diarrhea. She has known history of microscopic colitis and apparently takes prednisone at home. About 2 days ago, on Monday she started having nausea, vomiting and diarrhea. Yesterday she felt extremely weak and decided to come into the hospital. She was found to have significant leukocytosis, acute renal failure. Creatinine on admission was 4.6 and has worsened to 4.9 today despite aggressive fluid resuscitation. Denies taking any recent antibiotic. Baseline creatinine is normal as of December of this year Medication changes within the last 2 months include increasing dose of metformin to 1000 mg and starting lisinopril 20 mg once a day for hypertension. The lisinopril was started about 1 to 2 weeks ago. No recent contrast studies, no NSAIDs. Stool is negative for C. difficile Only [id number] medication is Tylenol - Allergies Allergies: Allergies chlorhexidine Allergy (Verified 03/05/19 11:56) Unknown Iodinated Contrast- Oral and IV Dye [CONTRASTS] Allergy (Verified 03/05/19 11:56) Other iodine Allergy (Verified 03/05/19 11:56) Unknown - Current Medications Current Medications: Current Medications Acetaminophen (Tylenol) 650 mg PO Q6H PRN PRN PRN Reason: Mild Pain (1-3)/Temp > 100.7 F Amlodipine Besylate (Norvasc) 5 mg PO DAILY [facility] Last Admin: 03/06/19 09:16 Dose: 5 mg Atorvastatin Calcium (Lipitor) 80 mg PO QHS [facility] Last Admin: 03/05/19 23:01 Dose: 80 mg Dextrose (D50w Syringe) 0 gm IV X1 PRN; Protocol PRN Reason: Hypoglycemia Folic Acid (Folic Acid) 1 mg PO DAILY@0800 [facility] Last Admin: 03/06/19 09:18 Dose: 1 mg Glucagon () 1 mg IM .X1 PRN PRN Reason: Hypoglycemia Lactated Ringer's () 1,000 mls @ 150 mls/hr IV .Q6H40M [facility] Insulin Glargine (Lantus (Bkc)) 32 units SC DAILY [facility] Last Admin: 03/06/19 09:16 Dose: 32 units Insulin Human Lispro (Humalog Kwikpen (Bk)) 0 unit SQ ACHS [facility]; Protocol Last Admin: 03/06/19 11:12 Dose: 2 u Methylprednisolone (Solu-Medrol) 40 mg IV Q8 [facility] Last Admin: 03/06/19 07:03 Dose: 40 mg Metoprolol Succinate (Toprol Xl (Beta Jonelle)) 100 mg PO DAILY [facility] Last Admin: 03/06/19 09:18 Dose: 100 mg Nystatin (Mycostatin Powder) 1 applic TOPICAL TID [facility]; Protocol Pioglitazone HCl (Actos) 15 mg PO DAILY [facility] Last Admin: 03/06/19 09:18 Dose: 15 mg Sodium Chloride () 5 - 15 ml IV UD PRN PRN Reason: SALINE FLUSH Last Admin: 03/05/19 23:13 Dose: 10 ml - Past Medical History Past Medical History (Chronic Problems): Chronic Problems Microscopic colitis (Chronic) Lymphedema (Chronic) Tinea unguium (Chronic) Toe pain, right (Chronic) Toe pain, left (Chronic) Osteoarthritis (Chronic) Type II diabetes mellitus (Chronic) Dyslipidemia (Chronic) Essential hypertension (Chronic) History of gastroesophageal reflux (GERD) (Chronic) History of irritable colon (Chronic) Morbid obesity (Chronic) - Past Surgical History Surgical History: total hip arthroplasty, total knee arthroplasty, tonsillectomy, - - right elbow bone graft - Social History Smoking Status: Never smoker Alcohol: None Drugs: None - Family History Maternal History Items: - - RA Paternal History Items: Cancer - basal cell, Hypertension Review of Systems Constitutional: Denies: Chills, Fever, Weight Change HEENT: Denies: Head Aches, Sinus Congestion, Sinus Drainage Cardiovascular: Denies: Chest Pain, Palpitations Respiratory: Denies: Cough, Shortness of breath at rest, Sputum production Gastrointestinal: Reports: Abdominal Pain, Diarrhea, Nausea, Vomiting Genitourinary: Denies: Dysuria Musculoskeletal: Denies: Joint Pain, Joint Tenderness Skin: Denies: Rash, Wounds Neurological: Denies: Numbness, Tingling, Focal weakness Psychiatric: Denies: Anxiety, Depression, Homicidal Ideations, Suicidal Ideations Hematologic/ Lymphatic: Denies: Easy Bruising, Easy Bleeding Patient Problems: Active and Suspected Problems Acute kidney injury (nontraumatic) (Acute) Vomiting and diarrhea (Acute) Hyponatremia (Acute) - Physical Exam General: Alert, Oriented x3, Cooperative HEENT: Atraumatic, PERRLA, EOMI, Normocephalic Neck: Supple, No JVD, Negative Carotid Bruits Lungs: Clear to auscultation, Normal air movement Cardiovascular: Regular rate, No murmurs Abdomen: Bowel Sounds Present, Soft, Non Tender Extremities: No edema, Capillary Refill Less than 3 Seconds Skin: No rashes, No breakdown Musculoskeletal: No Tenderness to Palpation of Joints or Extremities Neurological: Cranial nerves II-XII grossly intact Psych/Mental Status: Normal Affect, Appropriate Vital Signs Temp Pulse Resp BP Pulse Ox 97.8 F 66 16 137/54 H 97 03/06/19 09:13 03/06/19 11:00 03/06/19 09:13 03/06/19 09:18 03/06/19 09:13 Oxygen Delivery Method Room Air Weight: 107.048 kg Body Mass Index (BMI) 43.4 Intake and Output for Last 24 Hours 03/04/19 03/05/19 03/06/19 23:59 23:59 23:59 Intake Total 1516 / 1516 1799 / 1799 Output Total 20 / 20 Balance 1516 / 1516 1779 / 1779 Microbiology Past 72 Hours 03/05/19 16:27 C. difficile DNA Amplification - Final Stool 03/05/19 16:27 Stool Lactoferrin - Final Stool 03/05/19 16:27 Stool Occult Blood (ANDRES) - Final Stool Occult Blood Positive Laboratory Tests Past 24 Hrs 03/05/19 03/05/19 03/05/19 13:00 13:00 14:00 WBC 21.4 H RBC 5.27 Hgb 12.5 Hct 38.4 MCV 72.9 L MCH 23.7 L MCHC 32.6 RDW 17.5 H RDW Differential 45.8 H Plt Count 353 MPV 9.0 Immature Gran % (Auto) 0.700 Neut % (Auto) 87.3 H Lymph % (Auto) 5.0 L [place] % (Auto) 7.0 Eos % (Auto) 0.0 Baso % (Auto) 0.0 Absolute Neuts (auto) 18.6 H Absolute Lymphs (auto) 1.07 Total Counted Not Reportable Sodium 129 L Potassium 4.4 Chloride 102 Carbon Dioxide 18.0 L Anion Gap 9 BUN 94 H Creatinine 4.53 H Estim Creat Clear Calc 8.88 Est GFR (MDRD) Af Amer 12 L Est GFR (MDRD) Non-Af 10 L BUN/Creatinine Ratio 20.8 H Glucose 187 H Lactic Acid 1.4 Calcium 9.1 Magnesium 03/06/19 03/06/19 03/06/19 05:30 05:35 05:35 WBC 19.9 H RBC 4.89 Hgb 11.8 L Hct 36.7 L MCV 75.1 L MCH 24.1 L MCHC 32.2 RDW 17.5 H RDW Differential 47.6 H Plt Count 264 MPV 9.2 Immature Gran % (Auto) 0.200 Neut % (Auto) 96.1 H Lymph % (Auto) 2.1 L [place] % (Auto) 1.5 Eos % (Auto) 0.0 Baso % (Auto) 0.1 Absolute Neuts (auto) 19.1 H Absolute Lymphs (auto) 0.41 L Total Counted Not Reportable Sodium 138 Potassium 4.6 Chloride 112 H Carbon Dioxide 13.0 L Anion Gap 13 BUN 89 H Creatinine 4.99 H Estim Creat Clear Calc 7.69 Est GFR (MDRD) Af Amer 11 L Est GFR (MDRD) Non-Af 9 L BUN/Creatinine Ratio 17.8 Glucose 155 H Lactic Acid Calcium 7.6 L Magnesium 2.0 POC Glucose 03/06/19 03/06/19 03/05/19 11:09 06:58 22:59 POC Glucose 183 H 176 H 119 H 03/05/19 17:06 POC Glucose 124 H Assessment/Plan All Active Problems Acute kidney injury (nontraumatic) (Acute) Vomiting and diarrhea (Acute) Hyponatremia (Acute) Status post total hip replacement, right (Acute) Acute renal failure. Baseline creatinine normal as of December 2018. Had significant GI complaints for only about 1 day prior to admission. Was also started on lisinopril about 1 to 2 weeks ago. Blood pressure is adequate today but apparently her usual blood pressures are on the higher side. Denies any urinary complaints. Minimal urine output as per patient. Bladder scan this morning showed only about 200 cc of urine. She could have gone into acute tubular necrosis. Other etiologies of renal failure need to be ruled out. We will start with a urine analysis and renal ultrasound. If urine analysis is active, will order further serologic work-up. Acidosis. Likely due to diarrhea and acute renal failure. Will change fluids to Ringer's lactate for now she is asymptomatic from acidosis. Gastroenteritis ?. She has severe nausea, vomiting, diarrhea. Metformin was recently increased. She has known history of microscopic colitis on steroids. Stool for C. difficile is negative. Further management as per primary.
--- NOTE | 2019-03-06 11:47 | CON.PCM_ITS ---
Problem List (1) Acute kidney injury (nontraumatic) Status: Acute Consultation - Renal 03/06/19 PCP/ Referring MD: Requesting physician: Dr Christianson Primary care physician: Elena Mims DO Reason for Consultation:: OSVALDO - History of Present Illness History of Present Illness: The patient is a 73 year old F who was admitted to the hospital yesterday with complaints of significant nausea, vomiting, diarrhea. She has known history of microscopic colitis and apparently takes prednisone at home. About 2 days ago, on Monday she started having nausea, vomiting and diarrhea. Yesterday she felt extremely weak and decided to come into the hospital. She was found to have significant leukocytosis, acute renal failure. Creatinine on admission was 4.6 and has worsened to 4.9 today despite aggressive fluid resuscitation. Denies taking any recent antibiotic. Baseline creatinine is normal as of December of this year Medication changes within the last 2 months include increasing dose of metformin to 1000 mg and starting lisinopril 20 mg once a day for hypertension. The lisinopril was started about 1 to 2 weeks ago. No recent contrast studies, no NSAIDs. Stool is negative for C. difficile Only [id number] medication is Tylenol - Allergies Allergies: Allergies chlorhexidine Allergy (Verified 03/05/19 11:56) Unknown Iodinated Contrast- Oral and IV Dye [CONTRASTS] Allergy (Verified 03/05/19 11:56) Other iodine Allergy (Verified 03/05/19 11:56) Unknown - Current Medications Current Medications: Current Medications Acetaminophen (Tylenol) 650 mg PO Q6H PRN PRN PRN Reason: Mild Pain (1-3)/Temp > 100.7 F Amlodipine Besylate (Norvasc) 5 mg PO DAILY [facility] Last Admin: 03/06/19 09:16 Dose: 5 mg Atorvastatin Calcium (Lipitor) 80 mg PO QHS [facility] Last Admin: 03/05/19 23:01 Dose: 80 mg Dextrose (D50w Syringe) 0 gm IV X1 PRN; Protocol PRN Reason: Hypoglycemia Folic Acid (Folic Acid) 1 mg PO DAILY@0800 [facility] Last Admin: 03/06/19 09:18 Dose: 1 mg Glucagon () 1 mg IM .X1 PRN PRN Reason: Hypoglycemia Lactated Ringer's () 1,000 mls @ 150 mls/hr IV .Q6H40M [facility] Insulin Glargine (Lantus (Bkc)) 32 units SC DAILY [facility] Last Admin: 03/06/19 09:16 Dose: 32 units Insulin Human Lispro (Humalog Kwikpen (Bk)) 0 unit SQ ACHS [facility]; Protocol Last Admin: 03/06/19 11:12 Dose: 2 u Methylprednisolone (Solu-Medrol) 40 mg IV Q8 [facility] Last Admin: 03/06/19 07:03 Dose: 40 mg Metoprolol Succinate (Toprol Xl (Beta Jonelle)) 100 mg PO DAILY [facility] Last Admin: 03/06/19 09:18 Dose: 100 mg Nystatin (Mycostatin Powder) 1 applic TOPICAL TID [facility]; Protocol Pioglitazone HCl (Actos) 15 mg PO DAILY [facility] Last Admin: 03/06/19 09:18 Dose: 15 mg Sodium Chloride () 5 - 15 ml IV UD PRN PRN Reason: SALINE FLUSH Last Admin: 03/05/19 23:13 Dose: 10 ml - Past Medical History Past Medical History (Chronic Problems): Chronic Problems Microscopic colitis (Chronic) Lymphedema (Chronic) Tinea unguium (Chronic) Toe pain, right (Chronic) Toe pain, left (Chronic) Osteoarthritis (Chronic) Type II diabetes mellitus (Chronic) Dyslipidemia (Chronic) Essential hypertension (Chronic) History of gastroesophageal reflux (GERD) (Chronic) History of irritable colon (Chronic) Morbid obesity (Chronic) - Past Surgical History Surgical History: total hip arthroplasty, total knee arthroplasty, tonsillectomy, - - right elbow bone graft - Social History Smoking Status: Never smoker Alcohol: None Drugs: None - Family History Maternal History Items: - - RA Paternal History Items: Cancer - basal cell, Hypertension Review of Systems Constitutional: Denies: Chills, Fever, Weight Change HEENT: Denies: Head Aches, Sinus Congestion, Sinus Drainage Cardiovascular: Denies: Chest Pain, Palpitations Respiratory: Denies: Cough, Shortness of breath at rest, Sputum production Gastrointestinal: Reports: Abdominal Pain, Diarrhea, Nausea, Vomiting Genitourinary: Denies: Dysuria Musculoskeletal: Denies: Joint Pain, Joint Tenderness Skin: Denies: Rash, Wounds Neurological: Denies: Numbness, Tingling, Focal weakness Psychiatric: Denies: Anxiety, Depression, Homicidal Ideations, Suicidal Ideations Hematologic/ Lymphatic: Denies: Easy Bruising, Easy Bleeding Patient Problems: Active and Suspected Problems Acute kidney injury (nontraumatic) (Acute) Vomiting and diarrhea (Acute) Hyponatremia (Acute) - Physical Exam General: Alert, Oriented x3, Cooperative HEENT: Atraumatic, PERRLA, EOMI, Normocephalic Neck: Supple, No JVD, Negative Carotid Bruits Lungs: Clear to auscultation, Normal air movement Cardiovascular: Regular rate, No murmurs Abdomen: Bowel Sounds Present, Soft, Non Tender Extremities: No edema, Capillary Refill Less than 3 Seconds Skin: No rashes, No breakdown Musculoskeletal: No Tenderness to Palpation of Joints or Extremities Neurological: Cranial nerves II-XII grossly intact Psych/Mental Status: Normal Affect, Appropriate Vital Signs Temp Pulse Resp BP Pulse Ox 97.8 F 66 16 137/54 H 97 03/06/19 09:13 03/06/19 11:00 03/06/19 09:13 03/06/19 09:18 03/06/19 09:13 Oxygen Delivery Method Room Air Weight: 107.048 kg Body Mass Index (BMI) 43.4 Intake and Output for Last 24 Hours 03/04/19 03/05/19 03/06/19 23:59 23:59 23:59 Intake Total 1516 / 1516 1799 / 1799 Output Total 20 / 20 Balance 1516 / 1516 1779 / 1779 Microbiology Past 72 Hours 03/05/19 16:27 C. difficile DNA Amplification - Final Stool 03/05/19 16:27 Stool Lactoferrin - Final Stool 03/05/19 16:27 Stool Occult Blood (ANDRES) - Final Stool Occult Blood Positive Laboratory Tests Past 24 Hrs 03/05/19 03/05/19 03/05/19 13:00 13:00 14:00 WBC 21.4 H RBC 5.27 Hgb 12.5 Hct 38.4 MCV 72.9 L MCH 23.7 L MCHC 32.6 RDW 17.5 H RDW Differential 45.8 H Plt Count 353 MPV 9.0 Immature Gran % (Auto) 0.700 Neut % (Auto) 87.3 H Lymph % (Auto) 5.0 L Pre[place] % (Auto) 7.0 Eos % (Auto) 0.0 Baso % (Auto) 0.0 Absolute Neuts (auto) 18.6 H Absolute Lymphs (auto) 1.07 Total Counted Not Reportable Sodium 129 L Potassium 4.4 Chloride 102 Carbon Dioxide 18.0 L Anion Gap 9 BUN 94 H Creatinine 4.53 H Estim Creat Clear Calc 8.88 Est GFR (MDRD) Af Amer 12 L Est GFR (MDRD) Non-Af 10 L BUN/Creatinine Ratio 20.8 H Glucose 187 H Lactic Acid 1.4 Calcium 9.1 Magnesium 03/06/19 03/06/19 03/06/19 05:30 05:35 05:35 WBC 19.9 H RBC 4.89 Hgb 11.8 L Hct 36.7 L MCV 75.1 L MCH 24.1 L MCHC 32.2 RDW 17.5 H RDW Differential 47.6 H Plt Count 264 MPV 9.2 Immature Gran % (Auto) 0.200 Neut % (Auto) 96.1 H Lymph % (Auto) 2.1 L Pre[place] % (Auto) 1.5 Eos % (Auto) 0.0 Baso % (Auto) 0.1 Absolute Neuts (auto) 19.1 H Absolute Lymphs (auto) 0.41 L Total Counted Not Reportable Sodium 138 Potassium 4.6 Chloride 112 H Carbon Dioxide 13.0 L Anion Gap 13 BUN 89 H Creatinine 4.99 H Estim Creat Clear Calc 7.69 Est GFR (MDRD) Af Amer 11 L Est GFR (MDRD) Non-Af 9 L BUN/Creatinine Ratio 17.8 Glucose 155 H Lactic Acid Calcium 7.6 L Magnesium 2.0 POC Glucose 03/06/19 03/06/19 03/05/19 11:09 06:58 22:59 POC Glucose 183 H 176 H 119 H 03/05/19 17:06 POC Glucose 124 H Assessment/Plan All Active Problems Acute kidney injury (nontraumatic) (Acute) Vomiting and diarrhea (Acute) Hyponatremia (Acute) Status post total hip replacement, right (Acute) Acute renal failure. Baseline creatinine normal as of December 2018. Had significant GI complaints for only about 1 day prior to admission. Was also started on lisinopril about 1 to 2 weeks ago. Blood pressure is adequate today but apparently her usual blood pressures are on the higher side. Denies any urinary complaints. Minimal urine output as per patient. Bladder scan this morning showed only about 200 cc of urine. She could have gone into acute tubular necrosis. Other etiologies of renal failure need to be ruled out. We will start with a urine analysis and renal ultrasound. If urine analysis is active, will order further serologic work-up. Acidosis. Likely due to diarrhea and acute renal failure. Will change fluids to Ringer's lactate for now she is asymptomatic from acidosis. Gastroenteritis ?. She has severe nausea, vomiting, diarrhea. Metformin was recently increased. She has known history of microscopic colitis on steroids. Stool for C. difficile is negative. Further management as per primary.
--- NOTE | 2019-03-06 13:05 | PCM.PROGNOTE ---
<Carlos Dumont - Last Filed: 03/06/19 13:05> Patient Problems: Active and Suspected Problems Acute kidney injury (nontraumatic) (Acute) Vomiting and diarrhea (Acute) Hyponatremia (Acute) Subjective: Some nausea this AM. No vomiting. No further diarrhea. No abdominal pain. No fevers/chills. No dysuria. Renal function not improved. No hx renal dz. Consult to Dr. Robertson. Pt was started on lisinopril earlier this week. - Physical Exam General: Alert, Oriented x3, Cooperative HEENT: Atraumatic, PERRLA, EOMI, Normocephalic Neck: Supple, No JVD, Negative Carotid Bruits Lungs: Clear to auscultation, Normal air movement Cardiovascular: Regular rate, No murmurs Abdomen: Bowel Sounds Present, Soft, Non Tender, Obese Extremities: No edema, Capillary Refill Less than 3 Seconds Skin: No rashes, No breakdown Musculoskeletal: No Tenderness to Palpation of Joints or Extremities Neurological: Cranial nerves II-XII grossly intact Psych/Mental Status: Normal Affect, Appropriate, Alert and oriented to time, place, person, mood and affect Vital Signs Temp Pulse Resp BP Pulse Ox 97.8 F 66 16 137/54 H 97 03/06/19 09:13 03/06/19 11:00 03/06/19 09:13 03/06/19 09:18 03/06/19 09:13 Oxygen Delivery Method Room Air Weight: 235 lb 15.725 oz Body Mass Index (BMI) 43.4 Intake and Output for Last 24 Hours 03/04/19 03/05/19 03/06/19 23:59 23:59 23:59 Intake Total 1516 / 1516 3344 / 3344 Output Total Balance 1516 / 1516 3324 / 3324 Microbiology Past 72 Hours 03/05/19 16:27 C. difficile DNA Amplification - Final Stool 03/05/19 16:27 Stool Lactoferrin - Final Stool 03/05/19 16:27 Stool Occult Blood (ANDRES) - Final Stool Occult Blood Positive Laboratory Tests Past 24 Hrs 03/05/19 03/05/19 03/05/19 13:00 13:00 14:00 WBC 21.4 H RBC 5.27 Hgb 12.5 Hct 38.4 MCV 72.9 L MCH 23.7 L MCHC 32.6 RDW 17.5 H RDW Differential 45.8 H Plt Count 353 MPV 9.0 Immature Gran % (Auto) 0.700 Neut % (Auto) 87.3 H Lymph % (Auto) 5.0 L [place] % (Auto) 7.0 Eos % (Auto) 0.0 Baso % (Auto) 0.0 Absolute Neuts (auto) 18.6 H Absolute Lymphs (auto) 1.07 Total Counted Not Reportable Sodium 129 L Potassium 4.4 Chloride 102 Carbon Dioxide 18.0 L Anion Gap 9 BUN 94 H Creatinine 4.53 H Estim Creat Clear Calc 8.88 Est GFR (MDRD) Af Amer 12 L Est GFR (MDRD) Non-Af 10 L BUN/Creatinine Ratio 20.8 H Glucose 187 H Lactic Acid 1.4 Calcium 9.1 Magnesium 03/06/19 03/06/19 03/06/19 05:30 05:35 05:35 WBC 19.9 H RBC 4.89 Hgb 11.8 L Hct 36.7 L MCV 75.1 L MCH 24.1 L MCHC 32.2 RDW 17.5 H RDW Differential 47.6 H Plt Count 264 MPV 9.2 Immature Gran % (Auto) 0.200 Neut % (Auto) 96.1 H Lymph % (Auto) 2.1 L [place] % (Auto) 1.5 Eos % (Auto) 0.0 Baso % (Auto) 0.1 Absolute Neuts (auto) 19.1 H Absolute Lymphs (auto) 0.41 L Total Counted Not Reportable Sodium 138 Potassium 4.6 Chloride 112 H Carbon Dioxide 13.0 L Anion Gap 13 BUN 89 H Creatinine 4.99 H Estim Creat Clear Calc 7.69 Est GFR (MDRD) Af Amer 11 L Est GFR (MDRD) Non-Af 9 L BUN/Creatinine Ratio 17.8 Glucose 155 H Lactic Acid Calcium 7.6 L Magnesium 2.0 POC Glucose 03/06/19 03/06/19 03/05/19 11:09 06:58 22:59 POC Glucose 183 H 176 H 119 H 03/05/19 17:06 POC Glucose 124 H Medical Necessity - Tobacco Use Smoking Status: Never smoker Tobacco Use: Non-smoker Assessment/Plan All Active Problems Acute kidney injury (nontraumatic) (Acute) Vomiting and diarrhea (Acute) Hyponatremia (Acute) Status post total hip replacement, right (Acute) 1. OSVALDO 2/2 dehydration 2/2 unspecified colitis / gastroenteritis - Worsening creatinine. occult blood positive. C diff neg. Enteric pending. lactoferrin +. Hyponatremia resolved. Fluids changed to LR per nephrology. No fever. Tolerating diet well. Renal US pending. Dr. Robertson consulted. Notably, started on lisinopril this past week. Mag normal. -Hypotensive overnight, likely contributing to lack of improvement in renal function. continue metoprolol with hold parameters, hold norvasc / lavonne-i. 2. DMt2 with morbid obesity - hold orals. SSI. 3. Lymphedema - c/s wound care. She needs outpatient f/u with the wound care clinic she is not adequately caring for her legs. 4. HTN - hold orals for now given borderline low BP and dehydration 5. HLD - hold statin 6. Onychomycosis - Podiatry has seen and evaluated. Trimming provided. follow up with own radio program checker dr. Butler at [place]. DVT ppx: heparin DC planning: PTOT This patient was seen by Carlos Dumont PA-C under the supervision of Dr. Christianson. <Andrew Christianson - Last Filed: 03/06/19 14:02> Subjective: Patient nausea and vomiting has improved. No abdominal pain. Patient had 1 or 2 loose bowel movement yesterday and none today. No fever or chills. Patient kidney function does not show expected improvement on IV fluid. Nephrology consulted. Denies lower urinary tract symptoms including burning micturition, increased frequency or urgency. She is only urinates twice at night. - Physical Exam General: Alert, Oriented x3, Cooperative HEENT: Atraumatic, PERRLA, EOMI, Normocephalic Neck: Supple, No JVD, Negative Carotid Bruits Lungs: Clear to auscultation, Normal air movement, No rhonchi, No wheeze, No rales Cardiovascular: Regular rate, No murmurs Abdomen: Bowel Sounds Present, Soft, Non Tender Extremities: No edema, Capillary Refill Less than 3 Seconds Skin: No rashes, No breakdown Musculoskeletal: No Tenderness to Palpation of Joints or Extremities, Arthritic Changes Neurological: Cranial nerves II-XII grossly intact, Deep Tendon Reflexes 2+/4 and Symmetrical, Neuro grossly intact Psych/Mental Status: Normal Affect, Appropriate Vital Signs Temp Pulse Resp BP Pulse Ox 97.8 F 66 16 137/54 H 97 03/06/19 09:13 03/06/19 11:00 03/06/19 09:13 03/06/19 09:18 03/06/19 09:13 Oxygen Delivery Method Room Air Weight: 235 lb 15.725 oz Body Mass Index (BMI) 43.4 Intake and Output for Last 24 Hours 03/04/19 03/05/19 03/06/19 23:59 23:59 23:59 Intake Total 1516 / 1516 3344 / 3344 Output Total Balance 1516 / 1516 3324 / 3324 Microbiology Past 72 Hours 03/05/19 16:27 Enteric Bacteriology - Final Stool 03/05/19 16:27 C. difficile DNA Amplification - Final Stool 03/05/19 16:27 Stool Lactoferrin - Final Stool 03/05/19 16:27 Stool Occult Blood (ANDRES) - Final Stool Occult Blood Positive Laboratory Tests Past 24 Hrs 03/05/19 03/06/19 03/06/19 14:00 05:30 05:35 WBC 19.9 H RBC 4.89 Hgb 11.8 L Hct 36.7 L MCV 75.1 L MCH 24.1 L MCHC 32.2 RDW 17.5 H RDW Differential 47.6 H Plt Count 264 MPV 9.2 Immature Gran % (Auto) 0.200 Neut % (Auto) 96.1 H Lymph % (Auto) 2.1 L [place] % (Auto) 1.5 Eos % (Auto) 0.0 Baso % (Auto) 0.1 Absolute Neuts (auto) 19.1 H Absolute Lymphs (auto) 0.41 L Total Counted Not Reportable Sodium Potassium Chloride Carbon Dioxide Anion Gap BUN Creatinine Estim Creat Clear Calc Est GFR (MDRD) Af Amer Est GFR (MDRD) Non-Af BUN/Creatinine Ratio Glucose Lactic Acid 1.4 Calcium Magnesium 2.0 03/06/19 05:35 WBC RBC Hgb Hct MCV MCH MCHC RDW RDW Differential Plt Count MPV Immature Gran % (Auto) Neut % (Auto) Lymph % (Auto) [place] % (Auto) Eos % (Auto) Baso % (Auto) Absolute Neuts (auto) Absolute Lymphs (auto) Total Counted Sodium 138 Potassium 4.6 Chloride 112 H Carbon Dioxide 13.0 L Anion Gap 13 BUN 89 H Creatinine 4.99 H Estim Creat Clear Calc 7.69 Est GFR (MDRD) Af Amer 11 L Est GFR (MDRD) Non-Af 9 L BUN/Creatinine Ratio 17.8 Glucose 155 H Lactic Acid Calcium 7.6 L Magnesium POC Glucose 03/06/19 03/06/19 03/05/19 11:09 06:58 22:59 POC Glucose 183 H 176 H 119 H 03/05/19 17:06 POC Glucose 124 H Assessment/Plan This patient was seen in conjunction with Carlos BAEZ. I have independently interviewed and examined the patient and reviewed pertinent history, examination findings, laboratory and plan of management. I have reviewed the note and agree with the documented findings with the few additional points. In brief, patient is admitted for acute kidney injury seems multiple etiology. Initially thought, prerenal from fluid loss from nausea vomiting and diarrhea secondary to gastroenteritis, but may be ATN from nephrotoxic medications or postobstructive. Patient did not had recent antibiotic intake in the last 3 months. C. difficile is negative. Enteric bacteriology panel negative. Occult blood positive. Patient was also started on lisinopril about 1 to 2 weeks ago. Cumulative I and O 4860 /20. Bicarb 13, anion gap 13 suggestive of non-anion gap metabolic acidosis. IV fluid changed to Ringer lactate. Patient seen by boilerhouse mechanic. Bladder scan showed 200 cc mL. UA, urine culture renal ultrasound have been ordered. I have discussed my assessment with Carlos BAEZ and orders have been reviewed. Microbiology Past 72 Hours 03/05/19 16:27 Stool Enteric Bacteriology - Final 03/05/19 16:27 Stool C. difficile DNA Amplification - Final 03/05/19 16:27 Stool Stool Lactoferrin - Final 03/05/19 16:27 Stool Stool Occult Blood (ANDRES) - Final Occult Blood Positive Laboratory Results 03/05/19 14:00: Lactic Acid 1.4 03/05/19 17:06: POC Glucose 124 H 03/05/19 22:59: POC Glucose 119 H 03/06/19 05:30: Magnesium 2.0 03/06/19 05:35: WBC 19.9 H, RBC 4.89, Hgb 11.8 L, Hct 36.7 L, MCV 75.1 L, MCH 24.1 L, MCHC 32.2, RDW 17.5 H, RDW Differential 47.6 H, Plt Count 264, MPV 9.2, Immature Gran % (Auto) 0.200, Neut % (Auto) 96.1 H, Lymph % (Auto) 2.1 L, [place] % (Auto) 1.5, Eos % (Auto) 0.0, Baso % (Auto) 0.1, Absolute Neuts (auto) 19.1 H, Absolute Lymphs (auto) 0.41 L, Total Counted Not Reportable 03/06/19 05:35: Sodium 138, Potassium 4.6, Chloride 112 H, Carbon Dioxide 13.0 L, Anion Gap 13, BUN 89 H, Creatinine 4.99 H, Estim Creat Clear Calc 7.69, Est GFR (MDRD) Af Amer 11 L, Est GFR (MDRD) Non-Af 9 L, BUN/Creatinine Ratio 17.8, Glucose 155 H, Calcium 7.6 L 03/06/19 06:58: POC Glucose 176 H 03/06/19 11:09: POC Glucose 183 H Code Visit Inpatient E&M: 49336 Subs Hosp L3
[2019-03-06] MEDS: Lactated Ringers 1,000 ML 150 ML IV ×2 (13:42→20:29)
[2019-03-06] MEDS: 0.9% NaCl Peripheral Flush Adult/Peds IV (13:43)
[2019-03-06] MEDS: Nystatin Powder 15gm Bottle 1 APPLIC TOPICAL ×2 (13:51→21:45)
--- NOTE | 2019-03-06 14:40 | CASEMGMT ---
TRI received a call from patient's landlord. She said patient cannot return to the apartment until it is cleaned as it is unsanitary. TRI went to talk with patient and she did not know if she knew of any hotels that were handicap accessible. TRI told her all nursing homes have to be handicap accessible. She asked about going to a detention. TRI told her we can try, but SW cannot guarantee that her insurance will approve her. TRI told her she would stay in the hospital until insurance gives us an answer. TRI told her if insurance denies detention she will have to either private pay at a detention or go home with home health. She was in agreement with trying to get into TCU. TRI spoke with Melly in TCU and she has a bed available. She will start the pre-cert. TRI then called patient's niece to update her. TRI let her know above. She said she will do what she can to get the place cleaned up right away, but she is limited as she has to care for patient's dad this evening. Plan: TCU pending insurance approval. Khushi WATTERS MSW
--- NOTE | 2019-03-06 16:19 | NURSING ---
This RN and charge nurse Maxine Tong unsuccessful attempted to put in guevara cath. Dr. Christianson notified.
[2019-03-06 16:46] LABS: Bedside Glucose 215 mg/dL (70-110)
--- NOTE | 2019-03-06 18:53 | CON.PCM_ITS ---
Reason for Consult Date of Consultation: 03/06/19 Reason for Consultation: Difficult Roberts catheter placement History of Present Illness: The patient is a 73 year old female who presents to the hospital with acute renal insufficiency with a history of chronic renal insufficiency. She had ultrasound done that demonstrated no hydronephrosis in either kidney, nursing staff had difficulty placing the Roberts catheter they asked me to come in and evaluate the catheter. She has been admitted to the medical service his creatinine is elevated on 4.5. She is fairly anuric with very little to no urine output Past Medical History Past Medical History (Chronic Problems): Chronic Problems Microscopic colitis (Chronic) Lymphedema (Chronic) Tinea unguium (Chronic) Toe pain, right (Chronic) Toe pain, left (Chronic) Osteoarthritis (Chronic) Type II diabetes mellitus (Chronic) Dyslipidemia (Chronic) Essential hypertension (Chronic) History of gastroesophageal reflux (GERD) (Chronic) History of irritable colon (Chronic) Morbid obesity (Chronic) Allergies chlorhexidine Allergy (Verified 03/05/19 11:56) Unknown Iodinated Contrast- Oral and IV Dye [CONTRASTS] Allergy (Verified 03/05/19 11:56) Other iodine Allergy (Verified 03/05/19 11:56) Unknown Home Medications: Ambulatory Orders Medication Instructions Recorded Folic Acid 1 mg PO DAILY@0800 01/21/17 Metoprolol Succinate [Toprol Xl] 100 mg PO DAILY 01/21/17 Rosuvastatin Calcium [Crestor] 40 mg PO MOWEFR 01/21/17 Acetaminophen [Tylenol 8 Hour] 650 mg PO PRN PRN 03/05/19 Alendronate Sodium 70 mg PO FAUSTIN 03/05/19 Amlodipine Besylate 5 mg PO DAILY 03/05/19 Calcium Carb/Vitamin D 1 tab PO BID 03/05/19 [Caltrate-600 With Vit D Tab] Cholecalciferol (VIT D3) [Vitamin 3,000 unit PO DAILY 03/05/19 D] Cholecalciferol (Vitamin D3) 5,000 unit PO DAILY 03/05/19 [Vitamin D3] Dulaglutide [Trulicity] 1 mg SQ FR 03/05/19 Furosemide 20 mg PO DAILY 03/05/19 Insulin Degludec [Tresiba 32 units SQ DAILY 03/05/19 Flextouch U-200] Lisinopril 20 mg PO BID 03/05/19 Metformin(XR) [Glucophage Xr] 1,000 mg PO BID 03/05/19 Pioglitazone HCl 15 mg PO DAILY 03/05/19 Potassium Chloride [Klor-Con M20] 20 meq PO BID 03/05/19 Surgical History: total hip arthroplasty, total knee arthroplasty, tonsillectomy, - - right elbow bone graft Lives: Alone Smoking Status: Never smoker Tobacco Use: Non-smoker Alcohol: None Drugs: None - *Family History Maternal History Items: - - RA Paternal History Items: Cancer - basal cell, Hypertension Review of Systems Constitutional: Denies: Chills, Fever, Weight Change HEENT: Denies: Head Aches, Sinus Congestion, Sinus Drainage Cardiovascular: Denies: Chest Pain, Palpitations Respiratory: Denies: Cough, Shortness of breath at rest, Sputum production Gastrointestinal: Denies: Abdominal Pain, Nausea, Vomiting Genitourinary: Denies: Dysuria Musculoskeletal: Denies: Joint Pain, Joint Tenderness Skin: Denies: Rash, Wounds Neurological: Denies: Numbness, Tingling, Focal weakness Psychiatric: Denies: Anxiety, Depression, Homicidal Ideations, Suicidal Ideations Hematologic/ Lymphatic: Denies: Easy Bruising, Easy Bleeding Physical Exam - Physical Exam Vital Signs Temp 97.5 F L 03/06/19 16:37 Pulse 81 03/06/19 16:37 Resp 16 03/06/19 16:37 BP 140/60 H 03/06/19 16:37 Pulse Ox 95 03/06/19 16:37 Intake & Output 03/04/19 03/05/19 03/06/19 23:59 23:59 23:59 Intake Total 1516 / 1516 4301 / 4301 Output Total Balance 1516 / 1516 4281 / 4281 Weight: 107.048 kg 107.04 kg Intake: Oral 340 / 340 1170 / 1170 IV fluid/meds 1176 / 1176 3131 / 3131 Output: Urine 20 / 20 Other: Number of Bowel Movements 2 General: Alert HEENT: Atraumatic Oral: Moist Mucosa Neck: Supple Lungs: Normal air movement Abdomen: Soft, Obese - Catheter was checked manually also we flush the catheter and we confirm the catheter in the bladder. Microbiology Past 72 Hours 03/05/19 16:27 Enteric Bacteriology - Final Stool 03/05/19 16:27 C. difficile DNA Amplification - Final Stool 03/05/19 16:27 Stool Lactoferrin - Final Stool 03/05/19 16:27 Stool Occult Blood (ANDRES) - Final Stool Occult Blood Positive Laboratory Tests Past 24 Hrs 03/06/19 03/06/19 03/06/19 05:30 05:35 05:35 WBC 19.9 H RBC 4.89 Hgb 11.8 L Hct 36.7 L MCV 75.1 L MCH 24.1 L MCHC 32.2 RDW 17.5 H RDW Differential 47.6 H Plt Count 264 MPV 9.2 Immature Gran % (Auto) 0.200 Neut % (Auto) 96.1 H Lymph % (Auto) 2.1 L [place] % (Auto) 1.5 Eos % (Auto) 0.0 Baso % (Auto) 0.1 Absolute Neuts (auto) 19.1 H Absolute Lymphs (auto) 0.41 L Total Counted Not Reportable Sodium 138 Potassium 4.6 Chloride 112 H Carbon Dioxide 13.0 L Anion Gap 13 BUN 89 H Creatinine 4.99 H Estim Creat Clear Calc 7.69 Est GFR (MDRD) Af Amer 11 L Est GFR (MDRD) Non-Af 9 L BUN/Creatinine Ratio 17.8 Glucose 155 H Calcium 7.6 L Magnesium 2.0 Assessment/Plan All Active Problems Acute kidney injury (nontraumatic) (Acute) Vomiting and diarrhea (Acute) Hyponatremia (Acute) Status post total hip replacement, right (Acute) 73-year-old female with acute renal insufficiency ultrasound with no hydronephrosis catheter is confirmed to be in the bladder by visual inspection and also by flushing the catheter. I suspect the patient has prerenal renal insufficiency since there is no hydronephrosis. Medical services has already consulted nephrology services appropriately if you have any questions or concerns please let me know otherwise I will sign off.
[2019-03-06] MEDS: Atorvastatin Calcium 80 MG Tablet PO (21:48)
[2019-03-06 22:26] LABS: Bedside Glucose 200 mg/dL (70-110)
[2019-03-07] VITALS (10 sets, daily range): BP systolic 129–139; BP diastolic 52–78; PULSE 53–67; RESP 18–20; TEMP 36.4–36.7; O2SAT 96–99
[2019-03-07 00:06] LABS: Bacteria 0 SEEN /hpf (None Seen); Mucous, Urine 0 SEEN /hpf (<or=2+); Squamous Epithelial Cells - UA 0 SEEN /hpf (5-10)
[2019-03-07 00:14] LABS: Color, Urine Red (Yellow); Glucose, Dipstick 50 mg/dl (Normal); Ketone-Dipstick Negative (Negative); Leukocyte Esterase-Dipstick 500 /ul (Negative); Nitrite-Dipstick Negative (Negative); Occult Blood-Urine 250 /ul (Negative); Protein-Dipstick 500 mg/dl (Negative); Urine Bilirubin Dipstick Negative (Negative); Urine Clarity Cloudy (Clear); Urine Urobilinogen Normal (Normal)
[2019-03-07 00:42] LABS: Amorphous Sediment 2+; Red Blood Cells-Urine 50-100 SEEN /hpf (0-5); White Blood Cells 10-25 SEEN /hpf (0-5)
[2019-03-07 00:43] LABS: Urine Sodium 35 mmol/L (Not Establ.)
[2019-03-07] MEDS: Lactated Ringers 1,000 ML 150 ML IV (04:18)
[2019-03-07] MEDS: Nystatin Powder 15gm Bottle 1 APPLIC TOPICAL ×3 (06:05→21:44)
[2019-03-07] MEDS: Insulin Lispro 100 UNIT/ML INSULN.PEN SQ ×4 (06:49→21:44)
[2019-03-07] MEDS: 0.9% Normal Saline 1,000 ML 999 ML IV (06:51)
[2019-03-07 06:56] LABS: Bedside Glucose 195 mg/dL (70-110)
[2019-03-07] MEDS: Folic Acid 1 MG Tablet PO (09:18)
[2019-03-07] MEDS: Ondansetron 4 MG/2 ML Vial IV ×2 (09:19→16:42)
[2019-03-07] MEDS: Metoprolol(XL)Succ 100 MG Tablet PO (09:19)
[2019-03-07] MEDS: Ceftriaxone 1 GM/50 ML BAG IV (11:30)
[2019-03-07 11:50] LABS: Bedside Glucose 202 mg/dL (70-110)
--- NOTE | 2019-03-07 12:31 | PN.RENAL_ITS ---
Patient Problems: Active and Suspected Problems Acute kidney injury (nontraumatic) (Acute) Vomiting and diarrhea (Acute) Hyponatremia (Acute) Subjective: no new events remains anuric - Physical Exam General: Alert, Oriented x3, Cooperative HEENT: Atraumatic, PERRLA, EOMI, Normocephalic Neck: Supple, No JVD, Negative Carotid Bruits Lungs: Clear to auscultation, Normal air movement Cardiovascular: Regular rate, No murmurs Abdomen: Bowel Sounds Present, Soft, Non Tender Extremities: No edema, Capillary Refill Less than 3 Seconds Skin: No rashes, No breakdown Musculoskeletal: No Tenderness to Palpation of Joints or Extremities Neurological: Cranial nerves II-XII grossly intact Psych/Mental Status: Normal Affect, Appropriate Vital Signs Temp Pulse Resp BP Pulse Ox 98.1 F 67 20 H 134/78 H 96 03/07/19 09:55 03/07/19 09:55 03/07/19 09:55 03/07/19 09:55 03/07/19 09:55 Oxygen Delivery Method Room Air Weight: 107.04 kg Body Mass Index (BMI) 43.4 Intake and Output for Last 24 Hours 03/05/19 03/06/19 03/07/19 23:59 23:59 23:59 Intake Total 1516 / 1516 5151 / 5151 2431 / 2431 Output Total 80 / 80 75 / 75 Balance 1516 / 1516 5071 / 5071 2356 / 2356 Microbiology Past 72 Hours 03/05/19 16:27 Enteric Bacteriology - Final Stool 03/05/19 16:27 C. difficile DNA Amplification - Final Stool 03/05/19 16:27 Stool Lactoferrin - Final Stool 03/05/19 16:27 Stool Occult Blood (ANDRES) - Final Stool Occult Blood Positive Laboratory Tests Past 24 Hrs 03/05/19 03/05/19 03/06/19 20:00 20:00 23:35 Urine Color Red Urine Clarity Cloudy Urine pH 6.0 Ur Specific [place] 1.010 Urine Protein 500 H Urine Glucose (UA) 50 H Urine Ketones Negative Urine Occult Blood 250 H Urine Nitrite Negative Urine Bilirubin Negative Urine Urobilinogen Normal Ur Leukocyte Esterase 500 H Urine RBC 50-100 SEEN Urine WBC 10-25 SEEN Ur Squamous Epith Cells 0 SEEN Amorphous Sediment 2+ Urine Bacteria 0 SEEN Urine Mucus 0 SEEN Ur Random Sodium Urine Creatinine c-ANCA Antibody Pending p-ANCA Antibody Pending Double Strand DNA Ab Pending Glomerular Base Memb Ab Pending Complement C3 Pending 03/06/19 03/06/19 23:35 23:35 Urine Color Urine Clarity Urine pH Ur Specific [place] Urine Protein Urine Glucose (UA) Urine Ketones Urine Occult Blood Urine Nitrite Urine Bilirubin Urine Urobilinogen Ur Leukocyte Esterase Urine RBC Urine WBC Ur Squamous Epith Cells Amorphous Sediment Urine Bacteria Urine Mucus Ur Random Sodium 35 Urine Creatinine 19.50 c-ANCA Antibody p-ANCA Antibody Double Strand DNA Ab Glomerular Base Memb Ab Complement C3 POC Glucose 03/07/19 03/07/19 03/06/19 11:28 06:46 21:44 POC Glucose 202 H 195 H 200 H 03/06/19 16:35 POC Glucose 215 H Medical Necessity - Tobacco Use Smoking Status: Never smoker Tobacco Use: Non-smoker Assessment/Plan All Active Problems Acute kidney injury (nontraumatic) (Acute) Vomiting and diarrhea (Acute) Hyponatremia (Acute) Status post total hip replacement, right (Acute) Acute renal failure. Baseline creatinine normal as of December 2018. Had significant GI complaints for only about 1 day prior to admission. Was also started on lisinopril about 1 to 2 weeks ago. Blood pressure is adequate today but apparently her usual blood pressures are on the higher side. Denies any urinary complaints. Minimal urine output despite aggressive fluid resuscitation. ? ATN vs nephritis. UA is pretty active. not sure if this is related to straight cath. will order serologies. labs from today are pending. may need dialysis short term and kidney biopsy. PT PTT Acidosis. labs pending. dc all fluids. Gastroenteritis ?. She has severe nausea, vomiting, diarrhea. Metformin was recently increased. She has known history of microscopic colitis on steroids. Stool for C. difficile is negative. Further management as per primary. better today
--- NOTE | 2019-03-07 13:46 | PCM.PN.HOSP ---
Patient Problems: Active and Suspected Problems Acute kidney injury (nontraumatic) (Acute) Vomiting and diarrhea (Acute) Hyponatremia (Acute) Subjective: Patient had difficult Roberts catheterization yesterday by Nursing staff and then urologist was consulted. Urologist confirmed catheter in the bladder. Kidney ultrasound does not show hydronephrosis. Since patient has prerenal or ATN acute kidney injury Intake/output since admission 9000 intake. 155 mL urine output I&O today: 2500 mL / 75 mL Vitals/I&O's: Vital Signs Temp Pulse Resp BP Pulse Ox 98.1 F 67 20 H 134/78 H 96 03/07/19 09:55 03/07/19 09:55 03/07/19 09:55 03/07/19 09:55 03/07/19 09:55 Oxygen Delivery Method Room Air Weight: 235 lb 15.725 oz Body Mass Index (BMI) 43.4 Intake and Output for Last 24 Hours 03/05/19 03/06/19 03/07/19 23:59 23:59 23:59 Intake Total 1516 / 1516 5151 / 5151 2431 / 2431 Output Total 80 / 80 75 / 75 Balance 1516 / 1516 5071 / 5071 2356 / 2356 General: Alert, Oriented x3, Cooperative HEENT: Atraumatic, PERRLA, EOMI, Normocephalic Neck: Supple, No JVD, Negative Carotid Bruits Lungs: Clear to auscultation, Normal air movement Cardiovascular: Regular rate, Regular Rhythm, Normal S1, Normal S2, No murmurs Abdomen: Bowel Sounds Present, Soft, Non Tender, Non-Distended, - - Anuria. Denies lower urinary tract symptoms. She had pain during Roberts catheterization. Extremities: No edema, Capillary Refill Less than 3 Seconds Skin: No rashes, No breakdown Musculoskeletal: No Tenderness to Palpation of Joints or Extremities Neurological: Cranial nerves II-XII grossly intact, Deep Tendon Reflexes 2+/4 and Symmetrical, Neuro grossly intact Psych/Mental Status: Normal Affect, Appropriate Microbiology Past 72 Hours 03/05/19 16:27 Stool Enteric Bacteriology - Final 03/05/19 16:27 Stool C. difficile DNA Amplification - Final 03/05/19 16:27 Stool Stool Lactoferrin - Final 03/05/19 16:27 Stool Stool Occult Blood (ANDRES) - Final Occult Blood Positive Laboratory Results 03/05/19 20:00: Double Strand DNA Ab Pending 03/05/19 20:00: c-ANCA Antibody Pending, p-ANCA Antibody Pending, Glomerular Base Memb Ab Pending, Complement C3 Pending 03/06/19 16:35: POC Glucose 215 H 03/06/19 21:44: POC Glucose 200 H 03/06/19 23:35: Urine Color Red, Urine Clarity Cloudy, Urine pH 6.0, Ur Specific [place] 1.010, Urine Protein 500 H, Urine Glucose (UA) 50 H, Urine Ketones Negative, Urine Occult Blood 250 H, Urine Nitrite Negative, Urine Bilirubin Negative, Urine Urobilinogen Normal, Ur Leukocyte Esterase 500 H, Urine RBC 50-100 SEEN, Urine WBC 10-25 SEEN, Ur Squamous Epith Cells 0 SEEN, Amorphous Sediment 2+, Urine Bacteria 0 SEEN, Urine Mucus 0 SEEN 03/06/19 23:35: Ur Random Sodium 35 03/06/19 23:35: Urine Creatinine 19.50 03/07/19 06:46: POC Glucose 195 H 03/07/19 11:28: POC Glucose 202 H Current Medications Acetaminophen (Tylenol) 650 mg PO Q6H PRN PRN PRN Reason: Mild Pain (1-3)/Temp > 100.7 F Albuterol Sulfate (Ventolin Aerosols) 2.5 mg INHALATION Q2H PRN PRN PRN Reason: dyspnea, wheezing Atorvastatin Calcium (Lipitor) 80 mg PO QHS [facility] Last Admin: 03/06/19 21:48 Dose: 80 mg Dextrose (D50w Syringe) 0 gm IV X1 PRN; Protocol PRN Reason: Hypoglycemia Folic Acid (Folic Acid) 1 mg PO DAILY@0800 [facility] Last Admin: 03/07/19 09:18 Dose: 1 mg Glucagon () 1 mg IM .X1 PRN PRN Reason: Hypoglycemia Hydralazine HCl (Apresoline Iv) 10 mg IV Q4H PRN PRN PRN Reason: SBP > 160 Ceftriaxone Sodium (Rocephin) 1 gm in 50 mls @ 100 mls/hr IV Q24 [facility] Last Admin: 03/07/19 11:30 Dose: 100 mls/hr Insulin Glargine (Lantus (Bkc)) 32 units SC DAILY [facility] Last Admin: 03/07/19 09:18 Dose: 32 units Insulin Human Lispro (Humalog Kwikpen (Bkc)) 0 unit SQ ACHS [facility]; Protocol Last Admin: 03/07/19 11:29 Dose: 4 u Methylprednisolone (Solu-Medrol) 40 mg IV Q8 [facility] Last Admin: 03/07/19 06:05 Dose: 40 mg Metoprolol Succinate (Toprol Xl (Beta Jonelle)) 100 mg PO DAILY [facility] Last Admin: 03/07/19 09:19 Dose: 100 mg Nystatin (Mycostatin Powder) 1 applic TOPICAL TID [facility]; Protocol Last Admin: 03/07/19 06:05 Dose: 1 applic Ondansetron HCl (Zofran) 4 mg IV Q8H PRN PRN PRN Reason: NAUSEA/VOMITING Last Admin: 03/07/19 09:19 Dose: 4 mg Sodium Chloride () 5 - 15 ml IV UD PRN PRN Reason: SALINE FLUSH Last Admin: 03/06/19 13:43 Dose: 10 ml Medical Necessity - Tobacco Use Smoking Status: Never smoker Tobacco Use: Non-smoker Assessment/Plan All Active Problems Acute kidney injury (nontraumatic) (Acute) Vomiting and diarrhea (Acute) Hyponatremia (Acute) Status post total hip replacement, right (Acute) This is a 73-year-old female was admitted with generalized weakness, not able to use even walker or cane because of weakness, diarrhea for about 2 days along with nausea. She denies any vomiting. ER, labs was consistent with acute kidney injury, elevated WBC count. Particularly patient was put on oral vancomycin for suspicion of C. difficile but later on discontinued with the test came negative. 1. 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 No bacteria seen. Although initially thought from fluid loss but she did not had improvement in kidney function and urine output despite aggressive fluid resuscitation. She had 9 L total intake since admission on 03/05 she had 150 mL urine output. Bicarb 13, anion gap 13 suggestive of non-anion gap metabolic acidosis. IV fluid Ringer lactate. She had exposure of lisinopril about 1 to 2 weeks ago. Patient's today's lab is pending as housekeeping lead were unsuccessful. PICC line ordered. Discussed with completion manager. Urine culture is pending. Serologies were ordered. Depending on the labs today, patient may need dialysis or kidney biopsy. With mild pyuria, patient is empirically started on IV ceftriaxone pending urine culture report. 2. Patient had mild hypotension, blood pressure 80/36 on 03/05/2019. But currently blood pressure is in normal range. Avoid hypotension. 3. DMt2 with morbid obesity - hold orals. SSI. 3. Bilateral lower extremity lymphedema - c/s wound care. She needs outpatient f/u with the wound care clinic she is not adequately caring for her legs. 4. HTN -hold antihypertensive as mentioned above. 5. HLD - hold statin 6. Onychomycosis - Podiatry has seen and evaluated. Trimming provided. follow up with own securities lending trader dr. Butler at [place]. DVT ppx: heparin I have discussed my assessment with Carlos BAEZ and orders have been reviewed. Microbiology Past 72 Hours 03/05/19 16:27 Stool Enteric Bacteriology - Final 03/05/19 16:27 Stool C. difficile DNA Amplification - Final 03/05/19 16:27 Stool Stool Lactoferrin - Final 03/05/19 16:27 Stool Stool Occult Blood (ANDRES) - Final Occult Blood Positive Laboratory Results 03/05/19 14:00: Lactic Acid 1.4 03/05/19 17:06: POC Glucose 124 H 03/05/19 22:59: POC Glucose 119 H 03/06/19 05:30: Magnesium 2.0 03/06/19 05:35: WBC 19.9 H, RBC 4.89, Hgb 11.8 L, Hct 36.7 L, MCV 75.1 L, MCH 24.1 L, MCHC 32.2, RDW 17.5 H, RDW Differential 47.6 H, Plt Count 264, MPV 9.2, Immature Gran % (Auto) 0.200, Neut % (Auto) 96.1 H, Lymph % (Auto) 2.1 L, [place] % (Auto) 1.5, Eos % (Auto) 0.0, Baso % (Auto) 0.1, Absolute Neuts (auto) 19.1 H, Absolute Lymphs (auto) 0.41 L, Total Counted Not Reportable 03/06/19 05:35: Sodium 138, Potassium 4.6, Chloride 112 H, Carbon Dioxide 13.0 L, Anion Gap 13, BUN 89 H, Creatinine 4.99 H, Estim Creat Clear Calc 7.69, Est GFR (MDRD) Af Amer 11 L, Est GFR (MDRD) Non-Af 9 L, BUN/Creatinine Ratio 17.8, Glucose 155 H, Calcium 7.6 L 03/06/19 06:58: POC Glucose 176 H 03/06/19 11:09: POC Glucose 183 H 03/07/19 06:46: POC Glucose 195 H 03/07/19 11:28: POC Glucose 202 H Code Visit Inpatient E&M: 83092 Subs Hosp L3
--- NOTE | 2019-03-07 13:54 | PN_ITS ---
Patient Problems: Active and Suspected Problems Acute kidney injury (nontraumatic) (Acute) Vomiting and diarrhea (Acute) Hyponatremia (Acute) Subjective: Patient had difficult Roberts catheterization yesterday by Nursing staff and then urologist was consulted. Urologist confirmed catheter in the bladder. Kidney ultrasound does not show hydronephrosis. Since patient has prerenal or ATN acute kidney injury Intake/output since admission 9000 intake. 155 mL urine output I&O today: 2500 mL / 75 mL Vitals/I&O's: Vital Signs Temp Pulse Resp BP Pulse Ox 98.1 F 67 20 H 134/78 H 96 03/07/19 09:55 03/07/19 09:55 03/07/19 09:55 03/07/19 09:55 03/07/19 09:55 Oxygen Delivery Method Room Air Weight: 235 lb 15.725 oz Body Mass Index (BMI) 43.4 Intake and Output for Last 24 Hours 03/05/19 03/06/19 03/07/19 23:59 23:59 23:59 Intake Total 1516 / 1516 5151 / 5151 2431 / 2431 Output Total 80 / 80 75 / 75 Balance 1516 / 1516 5071 / 5071 2356 / 2356 General: Alert, Oriented x3, Cooperative HEENT: Atraumatic, PERRLA, EOMI, Normocephalic Neck: Supple, No JVD, Negative Carotid Bruits Lungs: Clear to auscultation, Normal air movement Cardiovascular: Regular rate, Regular Rhythm, Normal S1, Normal S2, No murmurs Abdomen: Bowel Sounds Present, Soft, Non Tender, Non-Distended, - - Anuria. Denies lower urinary tract symptoms. She had pain during Roberts catheterization. Extremities: No edema, Capillary Refill Less than 3 Seconds Skin: No rashes, No breakdown Musculoskeletal: No Tenderness to Palpation of Joints or Extremities Neurological: Cranial nerves II-XII grossly intact, Deep Tendon Reflexes 2+/4 and Symmetrical, Neuro grossly intact Psych/Mental Status: Normal Affect, Appropriate Microbiology Past 72 Hours 03/05/19 16:27 Stool Enteric Bacteriology - Final 03/05/19 16:27 Stool C. difficile DNA Amplification - Final 03/05/19 16:27 Stool Stool Lactoferrin - Final 03/05/19 16:27 Stool Stool Occult Blood (ANDRES) - Final Occult Blood Positive Laboratory Results 03/05/19 20:00: Double Strand DNA Ab Pending 03/05/19 20:00: c-ANCA Antibody Pending, p-ANCA Antibody Pending, Glomerular Base Memb Ab Pending, Complement C3 Pending 03/06/19 16:35: POC Glucose 215 H 03/06/19 21:44: POC Glucose 200 H 03/06/19 23:35: Urine Color Red, Urine Clarity Cloudy, Urine pH 6.0, Ur Specific [place] 1.010, Urine Protein 500 H, Urine Glucose (UA) 50 H, Urine Ketones Negative, Urine Occult Blood 250 H, Urine Nitrite Negative, Urine Bilirubin Negative, Urine Urobilinogen Normal, Ur Leukocyte Esterase 500 H, Urine RBC 50- 100 SEEN, Urine WBC 10-25 SEEN, Ur Squamous Epith Cells 0 SEEN, Amorphous Sediment 2+, Urine Bacteria 0 SEEN, Urine Mucus 0 SEEN 03/06/19 23:35: Ur Random Sodium 35 03/06/19 23:35: Urine Creatinine 19.50 03/07/19 06:46: POC Glucose 195 H 03/07/19 11:28: POC Glucose 202 H Current Medications Acetaminophen (Tylenol) 650 mg PO Q6H PRN PRN PRN Reason: Mild Pain (1-3)/Temp > 100.7 F Albuterol Sulfate (Ventolin Aerosols) 2.5 mg INHALATION Q2H PRN PRN PRN Reason: dyspnea, wheezing Atorvastatin Calcium (Lipitor) 80 mg PO QHS [facility] Last Admin: 03/06/19 21:48 Dose: 80 mg Dextrose (D50w Syringe) 0 gm IV X1 PRN; Protocol PRN Reason: Hypoglycemia Folic Acid (Folic Acid) 1 mg PO DAILY@0800 [facility] Last Admin: 03/07/19 09:18 Dose: 1 mg Glucagon () 1 mg IM .X1 PRN PRN Reason: Hypoglycemia Hydralazine HCl (Apresoline Iv) 10 mg IV Q4H PRN PRN PRN Reason: SBP > 160 Ceftriaxone Sodium (Rocephin) 1 gm in 50 mls @ 100 mls/hr IV Q24 [facility] Last Admin: 03/07/19 11:30 Dose: 100 mls/hr Insulin Glargine (Lantus (Bkc)) 32 units SC DAILY [facility] Last Admin: 03/07/19 09:18 Dose: 32 units Insulin Human Lispro (Humalog Kwikpen (Bkc)) 0 unit SQ ACHS [facility]; Protocol Last Admin: 03/07/19 11:29 Dose: 4 u Methylprednisolone (Solu-Medrol) 40 mg IV Q8 [facility] Last Admin: 03/07/19 06:05 Dose: 40 mg Metoprolol Succinate (Toprol Xl (Beta Jonelle)) 100 mg PO DAILY [facility] Last Admin: 03/07/19 09:19 Dose: 100 mg Nystatin (Mycostatin Powder) 1 applic TOPICAL TID [facility]; Protocol Last Admin: 03/07/19 06:05 Dose: 1 applic Ondansetron HCl (Zofran) 4 mg IV Q8H PRN PRN PRN Reason: NAUSEA/VOMITING Last Admin: 03/07/19 09:19 Dose: 4 mg Sodium Chloride () 5 - 15 ml IV UD PRN PRN Reason: SALINE FLUSH Last Admin: 03/06/19 13:43 Dose: 10 ml Medical Necessity - Tobacco Use Smoking Status: Never smoker Tobacco Use: Non-smoker Assessment/Plan All Active Problems Acute kidney injury (nontraumatic) (Acute) Vomiting and diarrhea (Acute) Hyponatremia (Acute) Status post total hip replacement, right (Acute) This is a 73-year-old female was admitted with generalized weakness, not able to use even walker or cane because of weakness, diarrhea for about 2 days along with nausea. She denies any vomiting. ER, labs was consistent with acute kidney injury, elevated WBC count. Particularly patient was put on oral vancomycin for suspicion of C. difficile but later on discontinued with the test came negative. 1. 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 No bacteria seen. Although initially thought from fluid loss but she did not had improvement in kidney function and urine output despite aggressive fluid resuscitation. She had 9 L total intake since admission on 03/05 she had 150 mL urine output. Bicarb 13, anion gap 13 suggestive of non-anion gap metabolic acidosis. IV fluid Ringer lactate. She had exposure of lisinopril about 1 to 2 weeks ago. Patient's today's lab is pending as machinery mechanic were unsuccessful. PICC line ordered. Discussed with beer runner. Urine culture is pending. Serologies were ordered. Depending on the labs today, patient may need dialysis or kidney biopsy. With mild pyuria, patient is empirically started on IV ceftriaxone pending urine culture report. 2. Patient had mild hypotension, blood pressure 80/36 on 03/05/2019. But currently blood pressure is in normal range. Avoid hypotension. 3. DMt2 with morbid obesity - hold orals. SSI. 3. Bilateral lower extremity lymphedema - c/s wound care. She needs outpatient f/u with the wound care clinic she is not adequately caring for her legs. 4. HTN -hold antihypertensive as mentioned above. 5. HLD - hold statin 6. Onychomycosis - Podiatry has seen and evaluated. Trimming provided. follow up with own group sales representative dr. Butler at [place]. DVT ppx: heparin I have discussed my assessment with Carlos BAEZ and orders have been reviewed. Microbiology Past 72 Hours 03/05/19 16:27 Stool Enteric Bacteriology - Final 03/05/19 16:27 Stool C. difficile DNA Amplification - Final 03/05/19 16:27 Stool Stool Lactoferrin - Final 03/05/19 16:27 Stool Stool Occult Blood (ANDRES) - Final Occult Blood Positive Laboratory Results 03/05/19 14:00: Lactic Acid 1.4 03/05/19 17:06: POC Glucose 124 H 03/05/19 22:59: POC Glucose 119 H 03/06/19 05:30: Magnesium 2.0 03/06/19 05:35: WBC 19.9 H, RBC 4.89, Hgb 11.8 L, Hct 36.7 L, MCV 75.1 L, MCH 24.1 L, MCHC 32.2, RDW 17.5 H, RDW Differential 47.6 H, Plt Count 264, MPV 9.2, Immature Gran % (Auto) 0.200, Neut % (Auto) 96.1 H, Lymph % (Auto) 2.1 L, [place] % (Auto) 1.5, Eos % (Auto) 0.0, Baso % (Auto) 0.1, Absolute Neuts (auto) 19.1 H, Absolute Lymphs (auto) 0.41 L, Total Counted Not Reportable 03/06/19 05:35: Sodium 138, Potassium 4.6, Chloride 112 H, Carbon Dioxide 13.0 L , Anion Gap 13, BUN 89 H, Creatinine 4.99 H, Estim Creat Clear Calc 7.69, Est GFR (MDRD) Af Amer 11 L, Est GFR (MDRD) Non-Af 9 L, BUN/Creatinine Ratio 17.8, Glucose 155 H, Calcium 7.6 L 03/06/19 06:58: POC Glucose 176 H 03/06/19 11:09: POC Glucose 183 H 03/07/19 06:46: POC Glucose 195 H 03/07/19 11:28: POC Glucose 202 H Code Visit Inpatient E&M: 20944 Subs Hosp L3
--- NOTE | 2019-03-07 14:36 | CASEMGMT ---
Patient was approved to go to TCU. However she is not medically ready for discharge yet. SW called patient's niece, Letha and let her know patient was approved, but not medically ready. SW also notified patient. There was mention of possible short term dialysis. Patient will not be able to go to TCU if she is on dialysis. SW to follow. Khushi [employer]
[2019-03-07 15:05] LABS: Absolute Neutrophil Count 20.6 X10^3/uL (2.0-7.7); Hematocrit 37.3 % (37-47); Lymphocyte % 3.1 % (19-41); Mean Corp Hgb Conc 32.2 g/gl (32-36); Mean Corpuscular Volume 74.6 fL (81-99); Monocyte% 5.3 % (0-10); Neutrophil # 20.61 X10^3/uL (2.7-7.7); Neutrophil % 91.2 % (47-70); Platelet Count 293 K/mm3 (150-450); RBC Distribution Width SD 49.4 fl (35.1-43.9); White Blood Count 22.6 K/mm3 (4.4-11.0)
[2019-03-07 15:06] LABS: Differential Indicated SCAN CRITERIA MET; POSITIVE COUNT NO; POSITIVE DIFFERENTIAL YES; POSITIVE MORPHOLOGY NO
[2019-03-07 15:09] LABS: International Normalized Ratio 1.2; Partial Thromboplast Time 32.8 Seconds (24.1-36.2)
[2019-03-07 15:13] LABS: Anion Gap 13 (5-15); BUN 99 mg/dL (7-18); BUN/Creat Ratio 15.6 RATIO (10-20); Calcium,Total 7.2 mg/dL (8.5-10.1); Chloride 108 mmol/L (98-107); Creatinine, Serum 6.33 mg/dL (0.55-1.02); EST Glomerular Filtration Rate 7 mL/min (>60); Est Glom Filt Rate - Afr Amer 8 mL/min (>60); Estimated Creatinine Clearance 6.06 ml/min; Glucose 269 mg/dL (74-106); Potassium 4.3 mmol/L (3.5-5.1); Sodium Level 135 mmol/L (136-145)
[2019-03-07 16:56] LABS: Bedside Glucose 234 mg/dL (70-110)
--- NOTE | 2019-03-07 18:07 | PCM.CONS.GEN ---
Problem List (1) Acute kidney injury (nontraumatic) Status: Acute Reason for Consult Date of Consultation: 03/07/19 History of Present Illness: The patient is a 73 year old F who I have been asked to see today for surgical consultation for tunneled dialysis catheters in a patient with acute kidney injury. I was kindly asked to see her by and a electronic copy of my surgical consult and recommendations were returned to him. This is a 73-year-old female who was admitted to the [facility] on March 05, 2019 with acute severe weakness diarrhea severe dehydration. Her chronic medical problems include a reported history of microcytic colitis and osteoarthritis and morbid obesity and dyslipidemia and assess for hypertension and GE reflux disease and type 2 diabetes mellitus and lymphedema. Unfortunately her renal function has not recovered since presentation. Urology Dr. Yobany Munguia was consulted and confirmed correct Roberts catheter placement. Urine output has been minimal at 80 cc for March 06 and 75 cc from March 07. To complicate features her white blood cell count is elevated at 22.6 with a he will of 12 and hematocrit 37.3 and a platelet count of 293,000. There is a left shift with 91 segs. BUN is elevated at 99 and creatinine is elevated 6.33. Glucose is elevated at 269. She has acute protein in her urine. Past Medical History Past Medical History (Chronic Problems): Chronic Problems Microscopic colitis (Chronic) Lymphedema (Chronic) Tinea unguium (Chronic) Toe pain, right (Chronic) Toe pain, left (Chronic) Osteoarthritis (Chronic) Type II diabetes mellitus (Chronic) Dyslipidemia (Chronic) Essential hypertension (Chronic) History of gastroesophageal reflux (GERD) (Chronic) History of irritable colon (Chronic) Morbid obesity (Chronic) Allergies chlorhexidine Allergy (Verified 03/05/19 11:56) Unknown Iodinated Contrast- Oral and IV Dye [CONTRASTS] Allergy (Verified 03/05/19 11:56) Other iodine Allergy (Verified 03/05/19 11:56) Unknown Home Medications: Ambulatory Orders Medication Instructions Recorded Folic Acid 1 mg PO DAILY@0800 01/21/17 Metoprolol Succinate [Toprol Xl] 100 mg PO DAILY 01/21/17 Rosuvastatin Calcium [Crestor] 40 mg PO MOWEFR 01/21/17 Acetaminophen [Tylenol 8 Hour] 650 mg PO PRN PRN 03/05/19 Alendronate Sodium 70 mg PO FAUSTIN 03/05/19 Amlodipine Besylate 5 mg PO DAILY 03/05/19 Calcium Carb/Vitamin D 1 tab PO BID 03/05/19 [Caltrate-600 With Vit D Tab] Cholecalciferol (VIT D3) [Vitamin 3,000 unit PO DAILY 03/05/19 D] Cholecalciferol (Vitamin D3) 5,000 unit PO DAILY 03/05/19 [Vitamin D3] Dulaglutide [Trulicity] 1 mg SQ FR 03/05/19 Furosemide 20 mg PO DAILY 03/05/19 Insulin Degludec [Tresiba 32 units SQ DAILY 03/05/19 Flextouch U-200] Lisinopril 20 mg PO BID 03/05/19 Metformin(XR) [Glucophage Xr] 1,000 mg PO BID 03/05/19 Pioglitazone HCl 15 mg PO DAILY 03/05/19 Potassium Chloride [Klor-Con M20] 20 meq PO BID 03/05/19 Surgical History: total hip arthroplasty, total knee arthroplasty, tonsillectomy, - - right elbow bone graft Lives: Alone Smoking Status: Never smoker Tobacco Use: Non-smoker Alcohol: None Drugs: None - *Family History Maternal History Items: - - RA Paternal History Items: Cancer - basal cell, Hypertension Review of Systems Constitutional: Reports: Malaise, Weakness, Fatigue Cardiovascular: Denies: Chest Pain Respiratory: Reports: Shortness of Breath Gastrointestinal: Reports: Diarrhea Musculoskeletal: Denies: Leg Pain Neurological: Reports: Balance problems Patient Problems: Active and Suspected Problems Acute kidney injury (nontraumatic) (Acute) Vomiting and diarrhea (Acute) Hyponatremia (Acute) - Physical Exam General: Lethargic HEENT: Atraumatic Oral: Moist Mucosa Neck: Supple, No JVD, Negative Carotid Bruits Lungs: - - Clear apices, markedly diminished in the bases Cardiovascular: Regular rate, Regular Rhythm Abdomen: Bowel Sounds Present, - - Notably overweight, nontender, Extremities: No Calf Tenderness, - - Upper extremities are diffusely enlarged but nonpitting Neurological: - - Patient appears to be able to understand information provided Vital Signs Temp Pulse Resp BP Pulse Ox 98.1 F 60 18 129/74 H 97 03/07/19 15:55 03/07/19 15:55 03/07/19 15:55 03/07/19 15:55 03/07/19 15:55 Oxygen Delivery Method Room Air Weight: 235 lb 15.725 oz Body Mass Index (BMI) 43.4 Intake and Output for Last 24 Hours 03/05/19 03/06/19 03/07/19 23:59 23:59 23:59 Intake Total 1516 / 1516 5151 / 5151 2431 / 2431 Output Total 80 / 80 75 / 75 Balance 1516 / 1516 5071 / 5071 2356 / 2356 Microbiology Past 72 Hours 03/05/19 16:27 Enteric Bacteriology - Final Stool 03/05/19 16:27 C. difficile DNA Amplification - Final Stool 03/05/19 16:27 Stool Lactoferrin - Final Stool 03/05/19 16:27 Stool Occult Blood (ANDRES) - Final Stool Occult Blood Positive Laboratory Tests Past 24 Hrs 03/05/19 03/05/19 03/06/19 20:00 20:00 23:35 WBC RBC Hgb Hct MCV MCH MCHC RDW RDW Differential Plt Count MPV Immature Gran % (Auto) Neut % (Auto) Lymph % (Auto) [place] % (Auto) Eos % (Auto) Baso % (Auto) Absolute Neuts (auto) Absolute Lymphs (auto) Total Counted Differential Comment PT INR APTT Sodium Potassium Chloride Carbon Dioxide Anion Gap BUN Creatinine Estim Creat Clear Calc Est GFR (MDRD) Af Amer Est GFR (MDRD) Non-Af BUN/Creatinine Ratio Glucose Calcium Urine Color Red Urine Clarity Cloudy Urine pH 6.0 Ur Specific [place] 1.010 Urine Protein 500 H Urine Glucose (UA) 50 H Urine Ketones Negative Urine Occult Blood 250 H Urine Nitrite Negative Urine Bilirubin Negative Urine Urobilinogen Normal Ur Leukocyte Esterase 500 H Urine RBC 50-100 SEEN Urine WBC 10-25 SEEN Ur Squamous Epith Cells 0 SEEN Amorphous Sediment 2+ Urine Bacteria 0 SEEN Urine Mucus 0 SEEN Ur Random Sodium Urine Creatinine c-ANCA Antibody Pending p-ANCA Antibody Pending Double Strand DNA Ab Pending Glomerular Base Memb Ab Pending Complement C3 Pending 03/06/19 03/06/19 03/07/19 23:35 23:35 14:45 WBC 22.6 H RBC 5.00 Hgb 12.0 Hct 37.3 MCV 74.6 L MCH 24.0 L MCHC 32.2 RDW 18.0 H RDW Differential 49.4 H Plt Count 293 MPV 9.0 Immature Gran % (Auto) 0.400 Neut % (Auto) 91.2 H Lymph % (Auto) 3.1 L [place] % (Auto) 5.3 Eos % (Auto) 0.0 Baso % (Auto) 0.0 Absolute Neuts (auto) 20.6 H Absolute Lymphs (auto) 0.70 L Total Counted Not Reportable Differential Comment COMMENT PT INR APTT Sodium Potassium Chloride Carbon Dioxide Anion Gap BUN Creatinine Estim Creat Clear Calc Est GFR (MDRD) Af Amer Est GFR (MDRD) Non-Af BUN/Creatinine Ratio Glucose Calcium Urine Color Urine Clarity Urine pH Ur Specific [place] Urine Protein Urine Glucose (UA) Urine Ketones Urine Occult Blood Urine Nitrite Urine Bilirubin Urine Urobilinogen Ur Leukocyte Esterase Urine RBC Urine WBC Ur Squamous Epith Cells Amorphous Sediment Urine Bacteria Urine Mucus Ur Random Sodium 35 Urine Creatinine 19.50 c-ANCA Antibody p-ANCA Antibody Double Strand DNA Ab Glomerular Base Memb Ab Complement C3 03/07/19 03/07/19 14:45 14:45 WBC RBC Hgb Hct MCV MCH MCHC RDW RDW Differential Plt Count MPV Immature Gran % (Auto) Neut % (Auto) Lymph % (Auto) [place] % (Auto) Eos % (Auto) Baso % (Auto) Absolute Neuts (auto) Absolute Lymphs (auto) Total Counted Differential Comment PT 15.0 H INR 1.2 APTT 32.8 Sodium 135 L Potassium 4.3 Chloride 108 H Carbon Dioxide 14.0 L Anion Gap 13 BUN 99 H Creatinine 6.33 H Estim Creat Clear Calc 6.06 Est GFR (MDRD) Af Amer 8 L Est GFR (MDRD) Non-Af 7 L BUN/Creatinine Ratio 15.6 Glucose 269 H Calcium 7.2 L Urine Color Urine Clarity Urine pH Ur Specific [place] Urine Protein Urine Glucose (UA) Urine Ketones Urine Occult Blood Urine Nitrite Urine Bilirubin Urine Urobilinogen Ur Leukocyte Esterase Urine RBC Urine WBC Ur Squamous Epith Cells Amorphous Sediment Urine Bacteria Urine Mucus Ur Random Sodium Urine Creatinine c-ANCA Antibody p-ANCA Antibody Double Strand DNA Ab Glomerular Base Memb Ab Complement C3 POC Glucose 03/07/19 03/07/19 03/07/19 16:35 11:28 06:46 POC Glucose 234 H 202 H 195 H 03/06/19 21:44 POC Glucose 200 H Assessment/Plan All Active Problems Acute kidney injury (nontraumatic) (Acute) Vomiting and diarrhea (Acute) Hyponatremia (Acute) Status post total hip replacement, right (Acute) The patient has a right upper arm PICC line. I propose a right internal jugular tunneled dialysis catheter. Course of not able to achieve it on the right I will proceed to the left. In detail I discussed with the patient today technique, benefits, risks, alternatives. No guarantees of success have been offered. Based upon her presentation and is hopeful that she will only require short-term dialysis I appreciate the opportunity of assisting with her surgical care John Tierney M.D., F.A.C.S.
[2019-03-07] MEDS: Atorvastatin Calcium 80 MG Tablet PO (21:43)
[2019-03-07 22:16] LABS: Bedside Glucose 229 mg/dL (70-110)
[2019-03-08] VITALS (18 sets, daily range): BP systolic 119–154; BP diastolic 46–68; PULSE 55–61; RESP 16–18; TEMP 2.6–36.9; O2SAT 94–100; BMI 43.4; BMI 43.1
[2019-03-08] MEDS: 0.9% NaCl Peripheral Flush Adult/Peds IV (05:10)
[2019-03-08] MEDS: Nystatin Powder 15gm Bottle 1 APPLIC TOPICAL ×3 (05:10→21:44)
--- NOTE | 2019-03-08 05:55 | EKG12_ITS ---
Test Reason : AM Blood Pressure : / mmHG Vent. Rate : 056 BPM Atrial Rate : 056 BPM P-R Int : 178 ms QRS Dur : 088 ms QT Int : 436 ms P-R-T Axes : 024 -03 017 degrees QTc Int : 420 ms Sinus bradycardia Confirmed by NATHALY PAREDES, ONUR ([id number]), non linear editor EFRA RUIZ ([id number]) on 03/13/2019 2:02:51 PM Referred By: Valentino Graham Confirmed By:ONUR ANDERSEN MD
[2019-03-08 06:18] LABS: International Normalized Ratio 1.2; Prothrombin Time (Protime)PT. 15.4 SECONDS (11.7-14.9)
[2019-03-08 06:26] LABS: Absolute Lymphocyte Count 0.53 X10^3/ul (0.83-4.51); Absolute Neutrophil Count 19.1 X10^3/uL (2.0-7.7); Hematocrit 37.3 % (37-47); Hemoglobin 12.2 g/dl (12.0-15.0); Lymphocyte # 0.53 X10^3/ul (4.0); Lymphocyte % 2.6 % (19-41); Mean Corp Hgb Conc 32.7 g/gl (32-36); Mean Corpuscular Hgb 23.7 pg (27.0-32.0); Mean Corpuscular Volume 72.4 fL (81-99); Mean Platelet Vol. 9.5 fl (6.2-12.0); Monocyte# 0.84 X10^3/uL; Monocyte% 4.1 % (0-10); Neutrophil # 19.09 X10^3/uL (2.7-7.7); Neutrophil % 92.9 % (47-70); Platelet Count 324 K/mm3 (150-450); RBC Distribution Width CV 18.9 % (11.6-14.6); RBC Distribution Width SD 48.5 fl (35.1-43.9); Red Blood Count 5.15 M/mm3 (4.2-5.4); White Blood Count 20.5 K/mm3 (4.4-11.0)
[2019-03-08 06:32] LABS: Differential Indicated SCAN CRITERIA MET; POSITIVE COUNT NO
[2019-03-08 06:33] LABS: POSITIVE DIFFERENTIAL YES; POSITIVE MORPHOLOGY NO
[2019-03-08 06:38] LABS: Anion Gap 13 (5-15); BUN 108 mg/dL (7-18); BUN/Creat Ratio 15.7 RATIO (10-20); Calcium,Total 7.2 mg/dL (8.5-10.1); Chloride 111 mmol/L (98-107); Creatinine, Serum 6.89 mg/dL (0.55-1.02); EST Glomerular Filtration Rate 6 mL/min (>60); Est Glom Filt Rate - Afr Amer 8 mL/min (>60); Estimated Creatinine Clearance 5.57 ml/min; Glucose 187 mg/dL (74-106); Potassium 4.7 mmol/L (3.5-5.1); Sodium Level 136 mmol/L (136-145)
[2019-03-08 06:50] LABS: Bedside Glucose 175 mg/dL (70-110)
[2019-03-08] MEDS: Metoprolol(XL)Succ 100 MG Tablet PO (09:20)
[2019-03-08] MEDS: Folic Acid 1 MG Tablet PO (09:20)
--- NOTE | 2019-03-08 09:21 | NURSING ---
verbal report given to DEBRA juárez in [facility]
[2019-03-08 10:04] LABS: Hemoglobin A1c 7.5 % (4.2-6.3)
[2019-03-08 10:11] LABS: Bedside Glucose 176 mg/dL (70-110)
--- NOTE | 2019-03-08 10:29 | NURSING ---
wound photo: right leg
--- NOTE | 2019-03-08 10:29 | NURSING ---
skin photo: left lower leg
[2019-03-08 10:36] LABS: Bedside Glucose 162 mg/dL (70-110)
--- NOTE | 2019-03-08 11:13 | DCINST_ITS ---
Discharge Diet: Renal Diet Discharge Activity: May Drive, May Not Shower Additional Dressing/Incision Instructions:: You may remove your neck dressing in 3 days. Leave the Steri-Strips in place for 1 week. Keep the catheter site clean and dry. The dialysis center will assist with dressing changes of the catheter Allergies/Adverse Reactions: Allergies chlorhexidine Allergy (Verified 03/05/19 11:56) Unknown Iodinated Contrast- Oral and IV Dye [CONTRASTS] Allergy (Verified 03/05/19 11:56) Other iodine Allergy (Verified 03/05/19 11:56) Unknown Medications to take at Discharge Folic Acid 1 mg PO DAILY@0800 01/21/17 Metoprolol Succinate [Toprol Xl] 100 mg PO DAILY 01/21/17 Rosuvastatin Calcium [Crestor] 40 mg PO MOWEFR 01/21/17 Acetaminophen [Tylenol 8 Hour] 650 mg PO PRN PRN 03/05/19 Alendronate Sodium 70 mg PO FAUSTIN 03/05/19 Amlodipine Besylate 5 mg PO DAILY 03/05/19 Calcium Carb/Vitamin D [Caltrate-600 With Vit D Tab] 1 tab PO BID 03/05/19 Cholecalciferol (VIT D3) [Vitamin D] 3,000 unit PO DAILY 03/05/19 Cholecalciferol (Vitamin D3) [Vitamin D3] 5,000 unit PO DAILY 03/05/19 Dulaglutide [Trulicity] 1 mg SQ FR 03/05/19 Furosemide 20 mg PO DAILY 03/05/19 Insulin Degludec [Tresiba Flextouch U-200] 32 units SQ DAILY 03/05/19 Lisinopril 20 mg PO BID 03/05/19 Metformin(XR) [Glucophage Xr] 1,000 mg PO BID 03/05/19 Pioglitazone HCl 15 mg PO DAILY 03/05/19 Potassium Chloride [Klor-Con M20] 20 meq PO BID 03/05/19 Primary Care Physician: Elena Mims DO [Primary Care Provider] - Test Results: Test results from this visit will be discussed in further detail at your follow- up appointment, if applicable. Please Follow Up With: John Tierney MD - [phone] When: Please contact us when it is time for catheter removal
[2019-03-08] MEDS: Cefazolin 2 GM in 0.9% Normal Saline 100 ML IV (11:15)
--- NOTE | 2019-03-08 11:25 | PN_ITS ---
Patient Problems: Active and Suspected Problems Acute kidney injury (nontraumatic) (Acute) Vomiting and diarrhea (Acute) Hyponatremia (Acute) Subjective: Dr. Tierney was consulted for tunneled dialysis catheter. Patient does not have nausea, vomiting or diarrhea or abdominal pain. She started making urine, 400 mL urine since midnight Cumulative I and O's 10,438/610ml, +9800 mL Vitals/I&O's: Vital Signs Temp Pulse Resp BP Pulse Ox 98.1 F 58 L 18 142/46 H 98 03/08/19 09:52 03/08/19 09:52 03/08/19 09:52 03/08/19 09:52 03/08/19 09:52 Oxygen Delivery Method Room Air Weight: 235 lb 14.314 oz Body Mass Index (BMI) 43.1 Intake and Output for Last 24 Hours 03/06/19 03/07/19 03/08/19 23:59 23:59 23:59 Intake Total 5151 / 5151 3271 / 3271 0 / 0 Output Total 80 / 80 205 / 205 125 / 125 Balance 5071 / 5071 3066 / 3066 -125 / -125 General: Alert, Oriented x3, Cooperative HEENT: Atraumatic, PERRLA, EOMI, Normocephalic Neck: Supple, No JVD, Negative Carotid Bruits, - - Right subclinical tunneled dialysis catheter.Right PICC line Lungs: Clear to auscultation, Normal air movement, No rhonchi, No wheeze, No rales Cardiovascular: Regular rate, Regular Rhythm, Normal S1, Normal S2, No murmurs Abdomen: Bowel Sounds Present, Soft, Non Tender Extremities: No edema, Capillary Refill Less than 3 Seconds Skin: No rashes, No breakdown Musculoskeletal: No Tenderness to Palpation of Joints or Extremities, Arthritic Changes Lymphatic: No Cervical, Supraclavicular, or Inguinal Adenopathy Neurological: Cranial nerves II-XII grossly intact, Deep Tendon Reflexes 2+/4 and Symmetrical, Neuro grossly intact Psych/Mental Status: Normal Affect, Appropriate Microbiology Past 72 Hours 03/05/19 16:27 Stool Enteric Bacteriology - Final 03/05/19 16:27 Stool C. difficile DNA Amplification - Final 03/05/19 16:27 Stool Stool Lactoferrin - Final 03/05/19 16:27 Stool Stool Occult Blood (ANDRES) - Final Occult Blood Positive Laboratory Results 03/07/19 11:28: POC Glucose 202 H 03/07/19 14:45: WBC 22.6 H, RBC 5.00, Hgb 12.0, Hct 37.3, MCV 74.6 L, MCH 24.0 L , MCHC 32.2, RDW 18.0 H, RDW Differential 49.4 H, Plt Count 293, MPV 9.0, Immature Gran % (Auto) 0.400, Neut % (Auto) 91.2 H, Lymph % (Auto) 3.1 L, [place] % (Auto) 5.3, Eos % (Auto) 0.0, Baso % (Auto) 0.0, Absolute Neuts (auto) 20.6 H, Absolute Lymphs (auto) 0.70 L, Total Counted Not Reportable, Differential Comment COMMENT 03/07/19 14:45: Sodium 135 L, Potassium 4.3, Chloride 108 H, Carbon Dioxide 14.0 L, Anion Gap 13, BUN 99 H, Creatinine 6.33 H, Estim Creat Clear Calc 6.06, Est GFR (MDRD) Af Amer 8 L, Est GFR (MDRD) Non-Af 7 L, BUN/Creatinine Ratio 15.6, Glucose 269 H, Calcium 7.2 L 03/07/19 14:45: PT 15.0 H, INR 1.2, APTT 32.8 03/07/19 16:35: POC Glucose 234 H 03/07/19 21:42: POC Glucose 229 H 03/08/19 05:43: WBC 20.5 H, RBC 5.15, Hgb 12.2, Hct 37.3, MCV 72.4 L, MCH 23.7 L , MCHC 32.7, RDW 18.9 H, RDW Differential 48.5 H, Plt Count 324, MPV 9.5, Immature Gran % (Auto) 0.400, Neut % (Auto) 92.9 H, Lymph % (Auto) 2.6 L, [place] % (Auto) 4.1, Eos % (Auto) 0.0, Baso % (Auto) 0.0, Absolute Neuts (auto) 19.1 H, Absolute Lymphs (auto) 0.53 L, Total Counted Not Reportable 03/08/19 05:43: Sodium 136, Potassium 4.7, Chloride 111 H, Carbon Dioxide 12.0 L , Anion Gap 13, BUN 108 H*, Creatinine 6.89 H, Estim Creat Clear Calc 5.57, Est GFR (MDRD) Af Amer 8 L, Est GFR (MDRD) Non-Af 6 L, BUN/Creatinine Ratio 15.7, Glucose 187 H, Calcium 7.2 L 03/08/19 05:43: PT 15.4 H, INR 1.2, APTT 32.0 03/08/19 05:43: Hemoglobin A1c 7.5 H 03/08/19 06:47: POC Glucose 175 H 03/08/19 09:59: POC Glucose 176 H 03/08/19 10:31: POC Glucose 162 H Current Medications Acetaminophen (Tylenol) 650 mg PO Q6H PRN PRN PRN Reason: Mild Pain (1-3)/Temp > 100.7 F Hydrocodone Bitart/Acetaminophen ([place] 5mg-325mg) 1 - 2 tablet PO Q4H PRN PRN PRN Reason: PAIN Stop: 03/10/19 10:00 Albuterol Sulfate (Ventolin Aerosols) 2.5 mg INHALATION Q2H PRN PRN PRN Reason: dyspnea, wheezing Atorvastatin Calcium (Lipitor) 80 mg PO QHS [facility] Last Admin: 03/07/19 21:43 Dose: 80 mg Dextrose (D50w Syringe) 0 gm IV X1 PRN; Protocol PRN Reason: Hypoglycemia Folic Acid (Folic Acid) 1 mg PO DAILY@0800 [facility] Last Admin: 03/08/19 09:20 Dose: 1 mg Glucagon () 1 mg IM .X1 PRN PRN Reason: Hypoglycemia Hydralazine HCl (Apresoline Iv) 10 mg IV Q4H PRN PRN PRN Reason: SBP > 160 Ceftriaxone Sodium (Rocephin) 1 gm in 50 mls @ 100 mls/hr IV Q24 [facility] Last Admin: 03/07/19 11:30 Dose: 100 mls/hr Insulin Glargine (Lantus (Bkc)) 32 units SC DAILY [facility] Last Admin: 03/08/19 08:16 Dose: 32 units Insulin Glargine (Lantus (Bkc)) 10 units SC QHS [facility] Last Admin: 03/07/19 21:43 Dose: 10 u Insulin Human Lispro (Humalog Kwikpen (Bkc)) 0 unit SQ ACHS [facility]; Protocol Last Admin: 03/08/19 08:15 Dose: Not Given Methylprednisolone (Solu-Medrol) 40 mg IV Q8 [facility] Last Admin: 03/08/19 05:10 Dose: 40 mg Metoprolol Succinate (Toprol Xl (Beta Jonelle)) 100 mg PO DAILY [facility] Last Admin: 03/08/19 09:20 Dose: 100 mg Nystatin (Mycostatin Powder) 1 applic TOPICAL TID [facility]; Protocol Last Admin: 03/08/19 05:10 Dose: 1 applic Ondansetron HCl (Zofran) 4 mg IV Q8H PRN PRN PRN Reason: NAUSEA/VOMITING Last Admin: 03/07/19 16:42 Dose: 4 mg Sodium Chloride () 5 - 15 ml IV UD PRN PRN Reason: SALINE FLUSH Last Admin: 03/08/19 05:10 Dose: 10 ml Medical Necessity - Tobacco Use Smoking Status: Never smoker Tobacco Use: Non-smoker Assessment/Plan All Active Problems Acute kidney injury (nontraumatic) (Acute) Vomiting and diarrhea (Acute) Hyponatremia (Acute) Status post total hip replacement, right (Acute) This is a 73-year-old female was admitted with generalized weakness, not able to use even walker or cane because of weakness, diarrhea for about 2 days along with nausea. She denies any vomiting. ER, labs was consistent with acute kidney injury, elevated WBC count. Particularly patient was put on oral vancomy nick for suspicion of C. difficile but later on discontinued with the test came negative. 1. 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 No bacteria seen. Although initially thought from fluid loss but she did not had improvement in kidney function and urine output despite aggressive fluid resuscitation. She started making urine, 400 mL urine on 03/08/2018. FENa 6.5% Cumulative I and O's 10,438/610ml, +9800 mL. She had exposure of lisinopril about 1 to 2 weeks ago. IV fluid is discontinued. Patient has right arm PICC line and right subclavian tunneled dialysis catheter. Discussed with interpreter. Urine culture is pending. Serologies were ordered. With mild pyuria, patient is empirically started on IV ceftriaxone pending urine culture report. Patient will be dialyzed today. 2. Patient also has history of microscopic colitis: Patient is not taking any steroid or mesalamine at home. Currently patient does not have any GI symptoms. Entry bilaterally panel negative. It is having leukocytosis secondary to steroid. Discontinue Solu-Medrol. 3. Patient had mild hypotension, blood pressure 80/36 on 03/05/2019. But currently blood pressure is in normal range. Avoid hypotension. DMt2 with morbid obesity - hold orals. SSI. 3. Bilateral lower extremity lymphedema - c/s wound care. She needs outpatient f/u with the wound care clinic she is not adequately caring for her legs. 4. HTN -hold antihypertensive as mentioned above. 5. HLD - hold statin 6. Onychomycosis - Podiatry has seen and evaluated. Trimming provided. follow up with own obstetrics gyn dr. Butler at [place]. DVT ppx: heparin I have discussed my assessment with Carlos BAEZ and orders have been reviewed. Microbiology Past 72 Hours 03/05/19 16:27 Stool Enteric Bacteriology - Final 03/05/19 16:27 Stool C. difficile DNA Amplification - Final 03/05/19 16:27 Stool Stool Lactoferrin - Final 03/05/19 16:27 Stool Stool Occult Blood (ANDRES) - Final Occult Blood Positive Laboratory Results 03/07/19 16:35: POC Glucose 234 H 03/07/19 21:42: POC Glucose 229 H 03/08/19 05:43: WBC 20.5 H, RBC 5.15, Hgb 12.2, Hct 37.3, MCV 72.4 L, MCH 23.7 L , MCHC 32.7, RDW 18.9 H, RDW Differential 48.5 H, Plt Count 324, MPV 9.5, Immature Gran % (Auto) 0.400, Neut % (Auto) 92.9 H, Lymph % (Auto) 2.6 L, [place] % (Auto) 4.1, Eos % (Auto) 0.0, Baso % (Auto) 0.0, Absolute Neuts (auto) 19.1 H, Absolute Lymphs (auto) 0.53 L, Total Counted Not Reportable 03/08/19 05:43: Sodium 136, Potassium 4.7, Chloride 111 H, Carbon Dioxide 12.0 L , Anion Gap 13, BUN 108 H*, Creatinine 6.89 H, Estim Creat Clear Calc 5.57, Est GFR (MDRD) Af Amer 8 L, Est GFR (MDRD) Non-Af 6 L, BUN/Creatinine Ratio 15.7, Glucose 187 H, Calcium 7.2 L 03/08/19 05:43: PT 15.4 H, INR 1.2, APTT 32.0 03/08/19 05:43: Hemoglobin A1c 7.5 H 03/08/19 06:47: POC Glucose 175 H 03/08/19 09:59: POC Glucose 176 H 03/08/19 10:31: POC Glucose 162 H 03/08/19 13:32: POC Glucose 187 H Code Visit Inpatient E&M: 20142 Subs Hosp L2
[2019-03-08] MEDS: Bupivacaine Mpf 0.5% 30 ML VIAL (11:38)
[2019-03-08] MEDS: Ceftriaxone 1 GM/50 ML BAG IV (11:45)
[2019-03-08] MEDS: Heparin 10,000 UNITS/10 ML Vial 10000 UNITS (11:50)
--- NOTE | 2019-03-08 11:58 | PCM.OPRPT ---
Problem List (1) Acute kidney injury (nontraumatic) Status: Acute Report of Operation Date of Procedure: 03/08/19 Pre-Operative Diagnosis: Acute kidney injury Post-Operative Diagnosis: Same Surgery/Procedure Performed:: Right internal jugular tunneled palindrome hemodialysis catheter. Reference number [id number] lot #[id number]. Description of Surgical Findings:: Timeout and informed consent was obtained. 73-year-old female taken out from placement table monitored anesthesia care. Ancef 2 g given intravenously preoperatively. The right neck and chest were prepped with Betadine. Under ultrasound guidance 1% lidocaine mixed 50-50 with 0.5% Marcaine was used as local anesthetic. Total 13 cc was used. Local was instilled micropuncture needle inserted under ultrasound guidance micropuncture wire inserted then local was instilled down upon the chest wall. The 19 cm pre-curved palindrome catheter was tunneled from the chest to the neck site. Then the micropuncture sheath dilator was placed over the wire. Then I exchanged out for an 035 J-wire. Serial dilatation was performed. The sheath dilator was placed over the wire under fluoroscopic control. The wire and dilator were removed. The catheter was advanced through the sheath. The sheath was split and the catheter was positioned at the SVC atrial junction. There was a nice curvilinear position. The neck site was closed with interrupted 5-0 Vicryl subdermal stitch. The catheter was secured skin with interrupted 3-0 nylon. Silver impregnated dressings was applied. OpSite dressing applied. Steri-Strip Telfa OpSite dressing applied to the neck. Counts correct blood loss minimal no apparent complication she was taken to the recovery room in satisfactory condition stat portable chest x-ray is pending. Specimens none. Drains none. Blood loss minimal. John Tierney M.D., F.A.C.S. Type of Anesthesia:: Local MAC
--- NOTE | 2019-03-08 12:02 | OP.PCM_ITS ---
Problem List (1) Acute kidney injury (nontraumatic) Status: Acute Report of Operation Date of Procedure: 03/08/19 Pre-Operative Diagnosis: Acute kidney injury Post-Operative Diagnosis: Same Surgery/Procedure Performed:: Right internal jugular tunneled palindrome hemodialysis catheter. Reference number [id number] lot #[id number]. Description of Surgical Findings:: Timeout and informed consent was obtained. 73-year-old female taken out from placement table monitored anesthesia care. Ancef 2 g given intravenously preoperatively. The right neck and chest were prepped with Betadine. Under ultrasound guidance 1% lidocaine mixed 50-50 with 0.5% Marcaine was used as local anesthetic. Total 13 cc was used. Local was instilled micropuncture needle inserted under ultrasound guidance micropuncture wire inserted then local was instilled down upon the chest wall. The 19 cm pre-curved palindrome catheter was tunneled from the chest to the neck site. Then the micropuncture sheath dilator was placed over the wire. Then I exchanged out for an 035 J- wire. Serial dilatation was performed. The sheath dilator was placed over the wire under fluoroscopic control. The wire and dilator were removed. The catheter was advanced through the sheath. The sheath was split and the catheter was positioned at the SVC atrial junction. There was a nice curvilinear position. The neck site was closed with interrupted 5-0 Vicryl subdermal stitch. The catheter was secured skin with interrupted 3-0 nylon. Silver impregnated dressings was applied. OpSite dressing applied. Steri-Strip Telfa OpSite dressing applied to the neck. Counts correct blood loss minimal no apparent complication she was taken to the recovery room in satisfactory condition stat portable chest x-ray is pending. Specimens none. Drains none. Blood loss minimal. John Tierney M.D., F.A.C.S. Type of Anesthesia:: Local MAC
--- NOTE | 2019-03-08 12:16 | CASEMGMT ---
Per Dr. Robertson, pt will need set up for dialysis at this time. Pt is currently down getting permacath placed. Referral faxed to [facility] at this time. Per Dr. Robertson, pt will also need a biopsy completed and will be here thru mid next week. RN ASIF to follow. SStelias RICHARDSON CM
--- NOTE | 2019-03-08 12:17 | RAD_ITS ---
STUDY: X-RAY CHEST REASON FOR EXAM: Female, 73 years old. Hemodialysis catheter placement. TECHNIQUE: Single AP portable view of the chest. COMPARISON: None. FINDINGS: A right-sided double-lumen dialysis catheter as been placed. The tip is at the junction of the superior vena cava and right atrium. EKG electrodes are seen. The lungs are clear and expanded. Blunting of both costophrenic angles. There is moderate cardiac enlargement. Normal mediastinum and elijah. Normal visualized pulmonary arteries. Normal visualized aortic arch and descending thoracic aorta. There are diffuse degenerative changes of the visualized thoracic spine. Normal visualized ribs, clavicles, and shoulders. There is no demonstrated abnormality of the visualized soft tissue structures of the upper abdomen. RAD/Chest 1 View (Portable) IMPRESSION: Cardiomegaly. Blunting of both costophrenic angles. The tip of the right sided hemodialysis catheter is at the junction of the superior vena cava and right atrium. Electronically Signed: Bo Chan, at 12:39 EDT , Service support ,
--- NOTE | 2019-03-08 13:25 | PCM.PN.REN ---
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 Starting to make some urine now Dialysis scheduled for later today - Physical Exam General: Alert, Oriented x3, Cooperative HEENT: Atraumatic, PERRLA, EOMI, Normocephalic Neck: Supple, No JVD, Negative Carotid Bruits Lungs: Clear to auscultation, Normal air movement Cardiovascular: Regular rate, No murmurs Abdomen: Bowel Sounds Present, Soft, Non Tender Extremities: No edema, Capillary Refill Less than 3 Seconds Skin: No rashes, No breakdown Musculoskeletal: No Tenderness to Palpation of Joints or Extremities Neurological: Cranial nerves II-XII grossly intact Psych/Mental Status: Normal Affect, Appropriate Vital Signs Temp Pulse Resp BP Pulse Ox 97.3 F L 60 16 154/68 H 100 03/08/19 12:49 03/08/19 12:49 03/08/19 12:49 03/08/19 12:49 03/08/19 12:49 Oxygen Delivery Method Room Air Weight: 107 kg Body Mass Index (BMI) 43.1 Intake and Output for Last 24 Hours 03/06/19 03/07/19 03/08/19 23:59 23:59 23:59 Intake Total 5151 / 5151 3271 / 3271 500 / 500 Output Total 80 / 80 205 / 205 125 / 125 Balance 5071 / 5071 3066 / 3066 375 / 375 Microbiology Past 72 Hours 03/05/19 16:27 Enteric Bacteriology - Final Stool 03/05/19 16:27 C. difficile DNA Amplification - Final Stool 03/05/19 16:27 Stool Lactoferrin - Final Stool 03/05/19 16:27 Stool Occult Blood (ANDRES) - Final Stool Occult Blood Positive Laboratory Tests Past 24 Hrs 03/07/19 03/07/19 03/07/19 14:45 14:45 14:45 WBC 22.6 H RBC 5.00 Hgb 12.0 Hct 37.3 MCV 74.6 L MCH 24.0 L MCHC 32.2 RDW 18.0 H RDW Differential 49.4 H Plt Count 293 MPV 9.0 Immature Gran % (Auto) 0.400 Neut % (Auto) 91.2 H Lymph % (Auto) 3.1 L [place] % (Auto) 5.3 Eos % (Auto) 0.0 Baso % (Auto) 0.0 Absolute Neuts (auto) 20.6 H Absolute Lymphs (auto) 0.70 L Total Counted Not Reportable Differential Comment COMMENT PT 15.0 H INR 1.2 APTT 32.8 Sodium 135 L Potassium 4.3 Chloride 108 H Carbon Dioxide 14.0 L Anion Gap 13 BUN 99 H Creatinine 6.33 H Estim Creat Clear Calc 6.06 Est GFR (MDRD) Af Amer 8 L Est GFR (MDRD) Non-Af 7 L BUN/Creatinine Ratio 15.6 Glucose 269 H Hemoglobin A1c Calcium 7.2 L 03/08/19 03/08/19 03/08/19 05:43 05:43 05:43 WBC 20.5 H RBC 5.15 Hgb 12.2 Hct 37.3 MCV 72.4 L MCH 23.7 L MCHC 32.7 RDW 18.9 H RDW Differential 48.5 H Plt Count 324 MPV 9.5 Immature Gran % (Auto) 0.400 Neut % (Auto) 92.9 H Lymph % (Auto) 2.6 L [place] % (Auto) 4.1 Eos % (Auto) 0.0 Baso % (Auto) 0.0 Absolute Neuts (auto) 19.1 H Absolute Lymphs (auto) 0.53 L Total Counted Not Reportable Differential Comment PT 15.4 H INR 1.2 APTT 32.0 Sodium 136 Potassium 4.7 Chloride 111 H Carbon Dioxide 12.0 L Anion Gap 13 BUN 108 H* Creatinine 6.89 H Estim Creat Clear Calc 5.57 Est GFR (MDRD) Af Amer 8 L Est GFR (MDRD) Non-Af 6 L BUN/Creatinine Ratio 15.7 Glucose 187 H Hemoglobin A1c Calcium 7.2 L 03/08/19 05:43 WBC RBC Hgb Hct MCV MCH MCHC RDW RDW Differential Plt Count MPV Immature Gran % (Auto) Neut % (Auto) Lymph % (Auto) [place] % (Auto) Eos % (Auto) Baso % (Auto) Absolute Neuts (auto) Absolute Lymphs (auto) Total Counted Differential Comment PT INR APTT Sodium Potassium Chloride Carbon Dioxide Anion Gap BUN Creatinine Estim Creat Clear Calc Est GFR (MDRD) Af Amer Est GFR (MDRD) Non-Af BUN/Creatinine Ratio Glucose Hemoglobin A1c 7.5 H Calcium POC Glucose 03/08/19 03/08/19 03/08/19 10:31 09:59 06:47 POC Glucose 162 H 176 H 175 H 03/07/19 03/07/19 21:42 16:35 POC Glucose 229 H 234 H Medical Necessity - Tobacco Use Smoking Status: Never smoker Tobacco Use: Non-smoker Assessment/Plan All Active Problems Acute kidney injury (nontraumatic) (Acute) Vomiting and diarrhea (Acute) Hyponatremia (Acute) Status post total hip replacement, right (Acute) Acute renal failure. Baseline creatinine normal as of December 2018. Had significant GI complaints for only about 1 day prior to admission. Was also started on lisinopril about 1 to 2 weeks ago. Blood pressure is adequate today but apparently her usual blood pressures are on the higher side. Fractional excretion of sodium was 6.5%. Urine dipstick showed large amount of blood, RBC, protein. Under microscopy she had significant amount of red cells. She had somewhat traumatic Roberts catheter placed prior to that. Unclear if it is related to Roberts or active nephritis. Remains oliguric. Worsening renal function. Tunneled dialysis catheter placed by Dr. delaney today. Dialysis later today and tomorrow. Acidosis. Bicarbonate remains low. Should improve with dialysis Gastroenteritis ?. She has severe nausea, vomiting, diarrhea. Metformin was recently increased. She has known history of microscopic colitis on steroids. Stool for C. difficile is negative. Nephritis needs to be ruled out since her urine looked pretty active. Kidney biopsy ordered but will likely be done on Monday. Serologies are pending. Hold off on empiric steroids for now in view of elevated white count. Not sure if the elevated white count is related to steroids or active infection. She is on antibiotics for presumptive UTI. She has history of microscopic colitis on chronic steroids. Currently on Solu-Medrol 40 mg twice daily.
[2019-03-08] MEDS: Insulin Lispro 100 UNIT/ML INSULN.PEN SQ ×3 (13:33→21:42)
[2019-03-08 13:41] LABS: Bedside Glucose 187 mg/dL (70-110)
--- NOTE | 2019-03-08 14:42 | CASEMGMT ---
SW spoke with patient and let her know that if she will still need to go to a half-way at discharge she will need to choose another facility as [facility] does not take patient's on dialysis. She was not sure if she will need half-way or not as she will not be ready for discharge until next week. SW told her SW will follow and assist with d/c plan. Patient said she was okay with SW updated her niece, Letha. SW called Letha and let her know that [facility] cannot take patient's on dialysis so if she still needs half-way she will have to pick another facility. She verbalized understanding. SW to follow for d/c planning. Khushi WATTERS MSW
[2019-03-08 16:40] LABS: Bedside Glucose 153 mg/dL (70-110)
[2019-03-08] MEDS: Heparin 10,000 UNITS/10 ML Vial IV (21:39)
--- NOTE | 2019-03-08 21:42 | DIALYSIS ---
Hemodialysis x 2 hours complete. UF 2 liters. This was the patients first HD treatment and she tolerated it very well. Stable vital signs post treatment. Next hemodialysis will be 03/09/19.
[2019-03-08] MEDS: Atorvastatin Calcium 80 MG Tablet PO (21:43)
[2019-03-08 21:55] LABS: Bedside Glucose 160 mg/dL (70-110)
[2019-03-09] VITALS (13 sets, daily range): BP systolic 101–134; BP diastolic 43–63; PULSE 53–78; RESP 15–20; TEMP 36.6–36.7; O2SAT 95–98
[2019-03-09] MEDS: Nystatin Powder 15gm Bottle 1 APPLIC TOPICAL ×3 (05:52→22:16)
[2019-03-09 07:06] LABS: Bedside Glucose 105 mg/dL (70-110)
[2019-03-09 07:41] LABS: Absolute Lymphocyte Count 2.34 X10^3/ul (0.83-4.51); Absolute Neutrophil Count 18.1 X10^3/uL (2.0-7.7); Basophil# 0.01 X10^3/uL; Hematocrit 38.4 % (37-47); Hemoglobin 12.5 g/dl (12.0-15.0); Lymphocyte # 2.34 X10^3/ul (4.0); Lymphocyte % 10.9 % (19-41); Mean Corp Hgb Conc 32.6 g/gl (32-36); Mean Corpuscular Hgb 23.9 pg (27.0-32.0); Mean Corpuscular Volume 73.3 fL (81-99); Mean Platelet Vol. 9.3 fl (6.2-12.0); Monocyte# 0.99 X10^3/uL; Monocyte% 4.6 % (0-10); Neutrophil # 18.05 X10^3/uL (2.7-7.7); Neutrophil % 84.2 % (47-70); Platelet Count 260 K/mm3 (150-450); RBC Distribution Width SD 47.9 fl (35.1-43.9); Red Blood Count 5.24 M/mm3 (4.2-5.4); White Blood Count 21.5 K/mm3 (4.4-11.0)
[2019-03-09 07:47] LABS: Anion Gap 11 (5-15); BUN 89 mg/dL (7-18); Calcium,Total 6.9 mg/dL (8.5-10.1); Chloride 110 mmol/L (98-107); Creatinine, Serum 5.25 mg/dL (0.55-1.02); EST Glomerular Filtration Rate 9 mL/min (>60); Est Glom Filt Rate - Afr Amer 10 mL/min (>60); Estimated Creatinine Clearance 7.66 ml/min; Glucose 99 mg/dL (74-106); Potassium 3.5 mmol/L (3.5-5.1); Sodium Level 137 mmol/L (136-145)
[2019-03-09] MEDS: Folic Acid 1 MG Tablet PO (07:58)
[2019-03-09 07:59] LABS: Differential Indicated SCAN CRITERIA MET; POSITIVE COUNT NO; POSITIVE DIFFERENTIAL NO; POSITIVE MORPHOLOGY YES
[2019-03-09 08:25] LABS: Differential Comment SCANNED; Hypochromasia 1+; Microcytosis 1+; Platelet Estimate ADEQUATE (ADEQ)
--- NOTE | 2019-03-09 10:24 | NURSING ---
Pt receiving dialysis at bedside. Denies needs.
[2019-03-09 11:35] LABS: Bedside Glucose 83 mg/dL (70-110)
--- NOTE | 2019-03-09 11:51 | DIALYSIS ---
Pt tolerated 2.5hr HD tx well. Clots in circuit noted at end of tx. Net UF EVEN. See flow record for tx data
--- NOTE | 2019-03-09 12:14 | PCM.PN.HOSP ---
Patient Problems: Active and Suspected Problems Acute kidney injury (nontraumatic) (Acute) Vomiting and diarrhea (Acute) Hyponatremia (Acute) Subjective: Patient had 925 mL urine output yesterday and 400 mL since midnight today. Blood pressure is stable. No shortness of breath. Chest x-ray shows mild CP angle blunting otherwise no acute infiltrate. Urine culture is negative. Antibiotic Rocephin discontinued. Patient also has bilateral hand and forearm puffiness less edema. Vitals/I&O's: Vital Signs Temp Pulse Resp BP Pulse Ox 98.0 F 62 20 H 101/54 L 97 03/09/19 11:49 03/09/19 11:49 03/09/19 11:49 03/09/19 11:49 03/09/19 09:22 Oxygen Delivery Method Room Air Weight: 249 lb 12.54 oz Body Mass Index (BMI) 43.1 Intake and Output for Last 24 Hours 03/07/19 03/08/19 03/09/19 23:59 23:59 23:59 Intake Total 3271 / 3271 1340 / 1340 Output Total 205 / 205 1050 / 1050 400 / 400 Balance 3066 / 3066 290 / 290 -400 / -400 General: Alert, Oriented x3, Cooperative HEENT: Atraumatic, PERRLA, EOMI, Normocephalic Neck: Supple, No JVD, Negative Carotid Bruits Lungs: Clear to auscultation, No rhonchi, No wheeze, No rales, Diminished - Air entry is diminished in bilateral lung bases. Cardiovascular: Regular rate, Regular Rhythm, Normal S1, Normal S2, No murmurs Abdomen: Bowel Sounds Present, Soft, Non Tender, Non-Distended, - - Roberts catheter with clear urine. Extremities: Capillary Refill Less than 3 Seconds, Edema - Edema of both hands. Right PICC line. No tenderness along the PICC line or redness or erythema. Does not seem to be DVT. Right subclavian tunneled dialysis catheter. Skin: No rashes, No breakdown Musculoskeletal: No Tenderness to Palpation of Joints or Extremities, Arthritic Changes Neurological: Cranial nerves II-XII grossly intact Psych/Mental Status: Normal Affect, Appropriate Microbiology Past 72 Hours 03/06/19 23:35 Interface Orders Urine Culture - Final Culture exhibits no growth. 03/05/19 16:27 Stool Enteric Bacteriology - Final Laboratory Results 03/08/19 13:32: POC Glucose 187 H 03/08/19 16:32: POC Glucose 153 H 03/08/19 21:41: POC Glucose 160 H 03/09/19 06:30: Hep Bs Antigen Pending, Hep Bs Antibody Pending, Hep B Core Total Ab Pending 03/09/19 06:40: WBC 21.5 H, RBC 5.24, Hgb 12.5, Hct 38.4, MCV 73.3 L, MCH 23.9 L, MCHC 32.6, RDW 18.0 H, RDW Differential 47.9 H, Plt Count 260, MPV 9.3, Immature Gran % (Auto) 0.300, Neut % (Auto) 84.2 H, Lymph % (Auto) 10.9 L, [place] % (Auto) 4.6, Eos % (Auto) 0.0, Baso % (Auto) 0.0, Absolute Neuts (auto) 18.1 H, Absolute Lymphs (auto) 2.34, Total Counted Not Reportable, Differential Comment SCANNED, Platelet Estimate ADEQUATE, Hypochromasia 1+, Microcytosis 1+ 03/09/19 06:40: Sodium 137, Potassium 3.5, Chloride 110 H, Carbon Dioxide 16.0 L, Anion Gap 11, BUN 89 H, Creatinine 5.25 H, Estim Creat Clear Calc 7.66, Est GFR (MDRD) Af Amer 10 L, Est GFR (MDRD) Non-Af 9 L, BUN/Creatinine Ratio 17.0, Glucose 99, Calcium 6.9 L 03/09/19 06:56: POC Glucose 105 03/09/19 11:09: POC Glucose 83 Current Medications Acetaminophen (Tylenol) 650 mg PO Q6H PRN PRN PRN Reason: Mild Pain (1-3)/Temp > 100.7 F Hydrocodone Bitart/Acetaminophen ([place] 5mg-325mg) 1 - 2 tablet PO Q4H PRN PRN PRN Reason: PAIN Stop: 03/10/19 10:00 Albuterol Sulfate (Ventolin Aerosols) 2.5 mg INHALATION Q2H PRN PRN PRN Reason: dyspnea, wheezing Atorvastatin Calcium (Lipitor) 80 mg PO QHS BIA Last Admin: 03/08/19 21:43 Dose: 80 mg Dextrose (D50w Syringe) 0 gm IV X1 PRN; Protocol PRN Reason: Hypoglycemia Folic Acid (Folic Acid) 1 mg PO DAILY@0800 [facility] Last Admin: 03/09/19 07:58 Dose: 1 mg Glucagon () 1 mg IM .X1 PRN PRN Reason: Hypoglycemia Hydralazine HCl (Apresoline Iv) 10 mg IV Q4H PRN PRN PRN Reason: SBP > 160 Insulin Glargine (Lantus (Bkc)) 32 units SC DAILY [facility] Last Admin: 03/08/19 08:16 Dose: 32 units Insulin Glargine (Lantus (Bkc)) 10 units SC QHS [facility] Last Admin: 03/08/19 21:42 Dose: 10 u Insulin Human Lispro (Humalog Kwikpen ([facility])) 0 unit SQ ACHS [facility]; Protocol Last Admin: 03/09/19 06:58 Dose: Not Given Metoprolol Succinate (Toprol Xl (Beta Jonelle)) 100 mg PO DAILY [facility] Last Admin: 03/08/19 09:20 Dose: 100 mg Nystatin (Mycostatin Powder) 1 applic TOPICAL TID [facility]; Protocol Last Admin: 03/09/19 05:52 Dose: 1 applic Ondansetron HCl (Zofran) 4 mg IV Q8H PRN PRN PRN Reason: NAUSEA/VOMITING Last Admin: 03/07/19 16:42 Dose: 4 mg Sodium Chloride () 5 - 15 ml IV UD PRN PRN Reason: SALINE FLUSH Last Admin: 03/08/19 05:10 Dose: 10 ml Medical Necessity - Tobacco Use Smoking Status: Never smoker Tobacco Use: Non-smoker Assessment/Plan All Active Problems Acute kidney injury (nontraumatic) (Acute) Vomiting and diarrhea (Acute) Hyponatremia (Acute) Status post total hip replacement, right (Acute) This is a 73-year-old female was admitted with generalized weakness, not able to use even walker or cane because of weakness, diarrhea for about 2 days along with nausea. She denies any vomiting. ER, labs was consistent with acute kidney injury, elevated WBC count. Particularly patient was put on oral vancomycin for suspicion of C. difficile but later on discontinued with the test came negative. 1. 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 No bacteria seen. FENa 6.5%. Patient had about 900 mL urine output yesterday and 24 hours. 400 mL since 12 midnight Cumulative I and O's 10,438/610ml, +9800 mL. She had exposure of lisinopril about 1 to 2 weeks ago. IV fluid is discontinued. Patient has right arm PICC line and right subclavian tunneled dialysis catheter. Patient had dialysis on 03/08 and 03/09. Discussed with missing persons investigator. Urine culture is pending. Serologies were ordered. Urine culture is negative. Antibiotic, Rocephin discontinued. 2. Patient also has history of microscopic colitis: Patient is not taking any steroid or mesalamine at home. Currently patient does not have any GI symptoms. Entry bilaterally panel negative. It is having leukocytosis secondary to steroid. Discontinue Solu-Medrol. 3. Patient had mild hypotension, blood pressure 80/36 on 03/05/2019. But currently blood pressure is in normal range. Avoid hypotension. DMt2 with morbid obesity - hold orals. SSI. 3. Bilateral lower extremity lymphedema - c/s wound care. She needs outpatient f/u with the wound care clinic she is not adequately caring for her legs. 4. HTN -hold antihypertensive as mentioned above. 5. HLD - hold statin 6. Onychomycosis - Podiatry has seen and evaluated. Trimming provided. follow up with own commercial designer dr. Butler at [place]. DVT ppx: heparin I have discussed my assessment with Carlos BAEZ and orders have been reviewed. Microbiology Past 72 Hours 03/06/19 23:35 Interface Orders Urine Culture - Final Culture exhibits no growth. 03/05/19 16:27 Stool Enteric Bacteriology - Final Laboratory Results 03/08/19 13:32: POC Glucose 187 H 03/08/19 16:32: POC Glucose 153 H 03/08/19 21:41: POC Glucose 160 H 03/09/19 06:30: Hep Bs Antigen Pending, Hep Bs Antibody Pending, Hep B Core Total Ab Pending 03/09/19 06:40: WBC 21.5 H, RBC 5.24, Hgb 12.5, Hct 38.4, MCV 73.3 L, MCH 23.9 L, MCHC 32.6, RDW 18.0 H, RDW Differential 47.9 H, Plt Count 260, MPV 9.3, Immature Gran % (Auto) 0.300, Neut % (Auto) 84.2 H, Lymph % (Auto) 10.9 L, [place] % (Auto) 4.6, Eos % (Auto) 0.0, Baso % (Auto) 0.0, Absolute Neuts (auto) 18.1 H, Absolute Lymphs (auto) 2.34, Total Counted Not Reportable, Differential Comment SCANNED, Platelet Estimate ADEQUATE, Hypochromasia 1+, Microcytosis 1+ 03/09/19 06:40: Sodium 137, Potassium 3.5, Chloride 110 H, Carbon Dioxide 16.0 L, Anion Gap 11, BUN 89 H, Creatinine 5.25 H, Estim Creat Clear Calc 7.66, Est GFR (MDRD) Af Amer 10 L, Est GFR (MDRD) Non-Af 9 L, BUN/Creatinine Ratio 17.0, Glucose 99, Calcium 6.9 L 03/09/19 06:56: POC Glucose 105 03/09/19 11:09: POC Glucose 83 Code Visit Inpatient E&M: 64079 Subs Hosp L3
--- NOTE | 2019-03-09 12:18 | PN_ITS ---
Patient Problems: Active and Suspected Problems Acute kidney injury (nontraumatic) (Acute) Vomiting and diarrhea (Acute) Hyponatremia (Acute) Subjective: Patient had 925 mL urine output yesterday and 400 mL since midnight today. Blood pressure is stable. No shortness of breath. Chest x-ray shows mild CP angle blunting otherwise no acute infiltrate. Urine culture is negative. Antibiotic Rocephin discontinued. Patient also has bilateral hand and forearm puffiness less edema. Vitals/I&O's: Vital Signs Temp Pulse Resp BP Pulse Ox 98.0 F 62 20 H 101/54 L 97 03/09/19 11:49 03/09/19 11:49 03/09/19 11:49 03/09/19 11:49 03/09/19 09:22 Oxygen Delivery Method Room Air Weight: 249 lb 12.54 oz Body Mass Index (BMI) 43.1 Intake and Output for Last 24 Hours 03/07/19 03/08/19 03/09/19 23:59 23:59 23:59 Intake Total 3271 / 3271 1340 / 1340 Output Total 205 / 205 1050 / 1050 400 / 400 Balance 3066 / 3066 290 / 290 -400 / -400 General: Alert, Oriented x3, Cooperative HEENT: Atraumatic, PERRLA, EOMI, Normocephalic Neck: Supple, No JVD, Negative Carotid Bruits Lungs: Clear to auscultation, No rhonchi, No wheeze, No rales, Diminished - Air entry is diminished in bilateral lung bases. Cardiovascular: Regular rate, Regular Rhythm, Normal S1, Normal S2, No murmurs Abdomen: Bowel Sounds Present, Soft, Non Tender, Non-Distended, - - Roberts catheter with clear urine. Extremities: Capillary Refill Less than 3 Seconds, Edema - Edema of both hands. Right PICC line. No tenderness along the PICC line or redness or erythema. Does not seem to be DVT. Right subclavian tunneled dialysis catheter. Skin: No rashes, No breakdown Musculoskeletal: No Tenderness to Palpation of Joints or Extremities, Arthritic Changes Neurological: Cranial nerves II-XII grossly intact Psych/Mental Status: Normal Affect, Appropriate Microbiology Past 72 Hours 03/06/19 23:35 Interface Orders Urine Culture - Final Culture exhibits no growth. 03/05/19 16:27 Stool Enteric Bacteriology - Final Laboratory Results 03/08/19 13:32: POC Glucose 187 H 03/08/19 16:32: POC Glucose 153 H 03/08/19 21:41: POC Glucose 160 H 03/09/19 06:30: Hep Bs Antigen Pending, Hep Bs Antibody Pending, Hep B Core Total Ab Pending 03/09/19 06:40: WBC 21.5 H, RBC 5.24, Hgb 12.5, Hct 38.4, MCV 73.3 L, MCH 23.9 L , MCHC 32.6, RDW 18.0 H, RDW Differential 47.9 H, Plt Count 260, MPV 9.3, Immature Gran % (Auto) 0.300, Neut % (Auto) 84.2 H, Lymph % (Auto) 10.9 L, [place] % (Auto) 4.6, Eos % (Auto) 0.0, Baso % (Auto) 0.0, Absolute Neuts (auto) 18.1 H, Absolute Lymphs (auto) 2.34, Total Counted Not Reportable, Differential Comment SCANNED, Platelet Estimate ADEQUATE, Hypochromasia 1+, Microcytosis 1+ 03/09/19 06:40: Sodium 137, Potassium 3.5, Chloride 110 H, Carbon Dioxide 16.0 L , Anion Gap 11, BUN 89 H, Creatinine 5.25 H, Estim Creat Clear Calc 7.66, Est GFR (MDRD) Af Amer 10 L, Est GFR (MDRD) Non-Af 9 L, BUN/Creatinine Ratio 17.0, Glucose 99, Calcium 6.9 L 03/09/19 06:56: POC Glucose 105 03/09/19 11:09: POC Glucose 83 Current Medications Acetaminophen (Tylenol) 650 mg PO Q6H PRN PRN PRN Reason: Mild Pain (1-3)/Temp > 100.7 F Hydrocodone Bitart/Acetaminophen ([place] 5mg-325mg) 1 - 2 tablet PO Q4H PRN PRN PRN Reason: PAIN Stop: 03/10/19 10:00 Albuterol Sulfate (Ventolin Aerosols) 2.5 mg INHALATION Q2H PRN PRN PRN Reason: dyspnea, wheezing Atorvastatin Calcium (Lipitor) 80 mg PO QHS BIA Last Admin: 03/08/19 21:43 Dose: 80 mg Dextrose (D50w Syringe) 0 gm IV X1 PRN; Protocol PRN Reason: Hypoglycemia Folic Acid (Folic Acid) 1 mg PO DAILY@0800 [facility] Last Admin: 03/09/19 07:58 Dose: 1 mg Glucagon () 1 mg IM .X1 PRN PRN Reason: Hypoglycemia Hydralazine HCl (Apresoline Iv) 10 mg IV Q4H PRN PRN PRN Reason: SBP > 160 Insulin Glargine (Lantus (Bkc)) 32 units SC DAILY [facility] Last Admin: 03/08/19 08:16 Dose: 32 units Insulin Glargine (Lantus (Bkc)) 10 units SC QHS [facility] Last Admin: 03/08/19 21:42 Dose: 10 u Insulin Human Lispro (Humalog Kwikpen ([facility])) 0 unit SQ ACHS [facility]; Protocol Last Admin: 03/09/19 06:58 Dose: Not Given Metoprolol Succinate (Toprol Xl (Beta Jonelle)) 100 mg PO DAILY [facility] Last Admin: 03/08/19 09:20 Dose: 100 mg Nystatin (Mycostatin Powder) 1 applic TOPICAL TID [facility]; Protocol Last Admin: 03/09/19 05:52 Dose: 1 applic Ondansetron HCl (Zofran) 4 mg IV Q8H PRN PRN PRN Reason: NAUSEA/VOMITING Last Admin: 03/07/19 16:42 Dose: 4 mg Sodium Chloride () 5 - 15 ml IV UD PRN PRN Reason: SALINE FLUSH Last Admin: 03/08/19 05:10 Dose: 10 ml Medical Necessity - Tobacco Use Smoking Status: Never smoker Tobacco Use: Non-smoker Assessment/Plan All Active Problems Acute kidney injury (nontraumatic) (Acute) Vomiting and diarrhea (Acute) Hyponatremia (Acute) Status post total hip replacement, right (Acute) This is a 73-year-old female was admitted with generalized weakness, not able to use even walker or cane because of weakness, diarrhea for about 2 days along with nausea. She denies any vomiting. ER, labs was consistent with acute kidney injury, elevated WBC count. Particularly patient was put on oral vancomycin for suspicion of C. difficile but later on discontinued with the test came negative. 1. 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 No bacteria seen. FENa 6.5%. Patient had about 900 mL urine output yesterday and 24 hours. 400 mL since 12 midnight Cumulative I and O's 10,438/610ml, +9800 mL. She had exposure of lisinopril about 1 to 2 weeks ago. IV fluid is discontinued. Patient has right arm PICC line and right subclavian tunneled dialysis catheter. Patient had dialysis on 03/08 and 03/09. Discussed with sweat band sewer. Urine culture is pending. Serologies were ordered. Urine culture is negative. Antibiotic, Rocephin discontinued. 2. Patient also has history of microscopic colitis: Patient is not taking any steroid or mesalamine at home. Currently patient does not have any GI symptoms. Entry bilaterally panel negative. It is having leukocytosis secondary to steroid. Discontinue Solu-Medrol. 3. Patient had mild hypotension, blood pressure 80/36 on 03/05/2019. But currently blood pressure is in normal range. Avoid hypotension. DMt2 with morbid obesity - hold orals. SSI. 3. Bilateral lower extremity lymphedema - c/s wound care. She needs outpatient f/u with the wound care clinic she is not adequately caring for her legs. 4. HTN -hold antihypertensive as mentioned above. 5. HLD - hold statin 6. Onychomycosis - Podiatry has seen and evaluated. Trimming provided. follow up with own artificial intelligence specialist dr. Butler at [place]. DVT ppx: heparin I have discussed my assessment with Carlos BAEZ and orders have been reviewed. Microbiology Past 72 Hours 03/06/19 23:35 Interface Orders Urine Culture - Final Culture exhibits no growth. 03/05/19 16:27 Stool Enteric Bacteriology - Final Laboratory Results 03/08/19 13:32: POC Glucose 187 H 03/08/19 16:32: POC Glucose 153 H 03/08/19 21:41: POC Glucose 160 H 03/09/19 06:30: Hep Bs Antigen Pending, Hep Bs Antibody Pending, Hep B Core Total Ab Pending 03/09/19 06:40: WBC 21.5 H, RBC 5.24, Hgb 12.5, Hct 38.4, MCV 73.3 L, MCH 23.9 L , MCHC 32.6, RDW 18.0 H, RDW Differential 47.9 H, Plt Count 260, MPV 9.3, Immature Gran % (Auto) 0.300, Neut % (Auto) 84.2 H, Lymph % (Auto) 10.9 L, [place] % (Auto) 4.6, Eos % (Auto) 0.0, Baso % (Auto) 0.0, Absolute Neuts (auto) 18.1 H, Absolute Lymphs (auto) 2.34, Total Counted Not Reportable, Differential Comment SCANNED, Platelet Estimate ADEQUATE, Hypochromasia 1+, Microcytosis 1+ 03/09/19 06:40: Sodium 137, Potassium 3.5, Chloride 110 H, Carbon Dioxide 16.0 L , Anion Gap 11, BUN 89 H, Creatinine 5.25 H, Estim Creat Clear Calc 7.66, Est GFR (MDRD) Af Amer 10 L, Est GFR (MDRD) Non-Af 9 L, BUN/Creatinine Ratio 17.0, Glucose 99, Calcium 6.9 L 03/09/19 06:56: POC Glucose 105 03/09/19 11:09: POC Glucose 83 Code Visit Inpatient E&M: 66722 Subs Hosp L3
[2019-03-09 13:56] LABS: Bedside Glucose 158 mg/dL (70-110)
--- NOTE | 2019-03-09 15:01 | PCM.PROGNOTE ---
Patient Problems: Active and Suspected Problems Acute kidney injury (nontraumatic) (Acute) Vomiting and diarrhea (Acute) Hyponatremia (Acute) Subjective: no c/o no cp/sob tolerated HD well Objective: nad - Physical Exam General: Alert, Oriented x3, Cooperative HEENT: Atraumatic, PERRLA, Normocephalic Oral: Moist Mucosa, No Gingival or Mucosal Lesions/ Ulcerations Neck: Supple - rij TDC no signs of inflammation Lungs: Clear to auscultation, Normal air movement Cardiovascular: Regular rate, Regular Rhythm, Normal S1, Normal S2, No murmurs Abdomen: Bowel Sounds Present - obese, Soft, Non Tender Extremities: No clubbing, No edema Skin: No rashes Neurological: Cranial nerves II-XII grossly intact Vital Signs Temp Pulse Resp BP Pulse Ox 97.8 F 71 16 104/43 L 98 03/09/19 14:36 03/09/19 14:36 03/09/19 14:36 03/09/19 14:36 03/09/19 14:36 Oxygen Delivery Method Room Air Weight: 113.3 kg Body Mass Index (BMI) 43.1 Intake and Output for Last 24 Hours 03/07/19 03/08/19 03/09/19 23:59 23:59 23:59 Intake Total 3271 / 3271 1340 / 1340 120 / 120 Output Total 205 / 205 1050 / 1050 800 / 800 Balance 3066 / 3066 290 / 290 -680 / -680 Microbiology Past 72 Hours 03/06/19 23:35 Urine Culture - Final Interface Orders Culture exhibits no growth. 03/05/19 16:27 Enteric Bacteriology - Final Stool Laboratory Tests Past 24 Hrs 03/09/19 03/09/19 03/09/19 06:30 06:40 06:40 WBC 21.5 H RBC 5.24 Hgb 12.5 Hct 38.4 MCV 73.3 L MCH 23.9 L MCHC 32.6 RDW 18.0 H RDW Differential 47.9 H Plt Count 260 MPV 9.3 Immature Gran % (Auto) 0.300 Neut % (Auto) 84.2 H Lymph % (Auto) 10.9 L [place] % (Auto) 4.6 Eos % (Auto) 0.0 Baso % (Auto) 0.0 Absolute Neuts (auto) 18.1 H Absolute Lymphs (auto) 2.34 Total Counted Not Reportable Differential Comment SCANNED Platelet Estimate ADEQUATE Hypochromasia 1+ Microcytosis 1+ Sodium 137 Potassium 3.5 Chloride 110 H Carbon Dioxide 16.0 L Anion Gap 11 BUN 89 H Creatinine 5.25 H Estim Creat Clear Calc 7.66 Est GFR (MDRD) Af Amer 10 L Est GFR (MDRD) Non-Af 9 L BUN/Creatinine Ratio 17.0 Glucose 99 Calcium 6.9 L Hep Bs Antigen Pending Hep Bs Antibody Pending Hep B Core Total Ab Pending POC Glucose 03/09/19 03/09/19 03/09/19 13:52 11:09 06:56 POC Glucose 158 H 83 105 03/08/19 03/08/19 21:41 16:32 POC Glucose 160 H 153 H Medical Necessity - Tobacco Use Smoking Status: Never smoker Tobacco Use: Non-smoker Assessment/Plan All Active Problems Acute kidney injury (nontraumatic) (Acute) Vomiting and diarrhea (Acute) Hyponatremia (Acute) Status post total hip replacement, right (Acute) 1. OSVALDO unclear etiology DDX ATN vs AIN r/o RPGN normal Scr in December this year.Had HD on 03/08 and today.Initially oliguric now significant UOP so no UF today with HD. check bmp in am for renal biopsy on Monday.All serologies pending will f/u. Will likely dialyse again on Monday.Strict I and O's 2. Metabolic acidosis should improve further with HD 3. HTN controlled continue current meds Gastroenteritis history of microscopic colitis on steroids per primary
[2019-03-09 16:31] LABS: Bedside Glucose 132 mg/dL (70-110)
[2019-03-09] MEDS: Atorvastatin Calcium 80 MG Tablet PO (22:14)
[2019-03-09] MEDS: Insulin Lispro 100 UNIT/ML INSULN.PEN SQ (22:15)
[2019-03-09 22:30] LABS: Bedside Glucose 160 mg/dL (70-110)
[2019-03-10] VITALS (13 sets, daily range): BP systolic 92–127; BP diastolic 36–57; PULSE 63–83; RESP 15–16; TEMP 36.4–36.8; O2SAT 95–98
[2019-03-10] MEDS: 0.9% NaCl Peripheral Flush Adult/Peds IV ×3 (04:48→16:13)
[2019-03-10 06:31] LABS: Anion Gap 7 (5-15); BUN 60 mg/dL (7-18); BUN/Creat Ratio 18.4 RATIO (10-20); Calcium,Total 6.9 mg/dL (8.5-10.1); Chloride 109 mmol/L (98-107); Creatinine, Serum 3.26 mg/dL (0.55-1.02); EST Glomerular Filtration Rate 15 mL/min (>60); Est Glom Filt Rate - Afr Amer 18 mL/min (>60); Estimated Creatinine Clearance 12.34 ml/min; Glucose 82 mg/dL (74-106); Potassium 3.2 mmol/L (3.5-5.1); Sodium Level 141 mmol/L (136-145)
[2019-03-10] MEDS: Nystatin Powder 15gm Bottle 1 APPLIC TOPICAL ×3 (06:56→21:16)
[2019-03-10 07:11] LABS: Bedside Glucose 84 mg/dL (70-110)
[2019-03-10] MEDS: Folic Acid 1 MG Tablet PO (07:30)
--- NOTE | 2019-03-10 10:12 | PCM.PN.HOSP ---
Patient Problems: Active and Suspected Problems Acute kidney injury (nontraumatic) (Acute) Vomiting and diarrhea (Acute) Hyponatremia (Acute) Subjective: No acute change in clinical status. Patient is still on hemodialysis. Supposed to have kidney biopsy tomorrow. And had 1100 mL urine output since 12 midnight. Vitals/I&O's: Vital Signs Temp Pulse Resp BP Pulse Ox 98.1 F 68 16 127/57 H 95 03/10/19 03:42 03/10/19 09:12 03/10/19 09:12 03/10/19 03:42 03/10/19 09:12 Oxygen Delivery Method Room Air Weight: 249 lb 9.012 oz Body Mass Index (BMI) 43.1 Intake and Output for Last 24 Hours 03/08/19 03/09/19 03/10/19 23:59 23:59 23:59 Intake Total 1340 / 1340 360 / 360 200 / 200 Output Total 1050 / 1050 950 / 950 800 / 800 Balance 290 / 290 -590 / -590 -600 / -600 General: Alert, Oriented x3, Cooperative HEENT: Atraumatic, PERRLA, EOMI, Normocephalic Neck: Supple, No JVD, Negative Carotid Bruits Lungs: Clear to auscultation, No rhonchi, No wheeze, No rales, Diminished - Air entry diminished in bilateral lung Cardiovascular: Regular rate, No murmurs Abdomen: Bowel Sounds Present, Soft, Non Tender, Non-Distended Extremities: Capillary Refill Less than 3 Seconds, Edema - Mild edema of hands and lower extremity. Skin: No rashes, No breakdown, - - Right subclavian permacath dialysis catheter. Right arm PICC line. Musculoskeletal: No Tenderness to Palpation of Joints or Extremities, Arthritic Changes Neurological: Cranial nerves II-XII grossly intact, Deep Tendon Reflexes 2+/4 and Symmetrical, Neuro grossly intact Psych/Mental Status: Normal Affect, Appropriate Microbiology Past 72 Hours 03/06/19 23:35 Interface Orders Urine Culture - Final Culture exhibits no growth. Laboratory Results 03/09/19 11:09: POC Glucose 83 03/09/19 13:52: POC Glucose 158 H 03/09/19 16:11: POC Glucose 132 H 03/09/19 22:13: POC Glucose 160 H 03/10/19 05:32: Sodium 141, Potassium 3.2 L, Chloride 109 H, Carbon Dioxide 25.0, Anion Gap 7, BUN 60 H, Creatinine 3.26 H, Estim Creat Clear Calc 12.34, Est GFR (MDRD) Af Amer 18 L, Est GFR (MDRD) Non-Af 15 L, BUN/Creatinine Ratio 18.4, Glucose 82, Calcium 6.9 L 03/10/19 06:54: POC Glucose 84 Current Medications Acetaminophen (Tylenol) 650 mg PO Q6H PRN PRN PRN Reason: Mild Pain (1-3)/Temp > 100.7 F Albuterol Sulfate (Ventolin Aerosols) 2.5 mg INHALATION Q2H PRN PRN PRN Reason: dyspnea, wheezing Atorvastatin Calcium (Lipitor) 80 mg PO QHS [facility] Last Admin: 03/09/19 22:14 Dose: 80 mg Dextrose (D50w Syringe) 0 gm IV X1 PRN; Protocol PRN Reason: Hypoglycemia Folic Acid (Folic Acid) 1 mg PO DAILY@0800 [facility] Last Admin: 03/10/19 07:30 Dose: 1 mg Glucagon () 1 mg IM .X1 PRN PRN Reason: Hypoglycemia Hydralazine HCl (Apresoline Iv) 10 mg IV Q4H PRN PRN PRN Reason: SBP > 160 Insulin Glargine (Lantus (Bkc)) 32 units SC DAILY [facility] Last Admin: 03/10/19 09:56 Dose: Not Given Insulin Glargine (Lantus (Bkc)) 10 units SC QHS [facility] Last Admin: 03/09/19 22:15 Dose: 10 u Insulin Human Lispro (Humalog Kwikpen (Bkc)) 0 unit SQ ACHS [facility]; Protocol Last Admin: 03/10/19 06:56 Dose: Not Given Metoprolol Succinate (Toprol Xl (Beta Jonelle)) 100 mg PO DAILY [facility] Last Admin: 03/10/19 09:58 Dose: Not Given Nystatin (Mycostatin Powder) 1 applic TOPICAL TID [facility]; Protocol Last Admin: 03/10/19 06:56 Dose: 1 applic Ondansetron HCl (Zofran) 4 mg IV Q8H PRN PRN PRN Reason: NAUSEA/VOMITING Last Admin: 03/07/19 16:42 Dose: 4 mg Sodium Chloride () 5 - 15 ml IV UD PRN PRN Reason: SALINE FLUSH Last Admin: 03/10/19 04:49 Dose: 10 ml Medical Necessity - Tobacco Use Smoking Status: Never smoker Tobacco Use: Non-smoker Assessment/Plan All Active Problems Acute kidney injury (nontraumatic) (Acute) Vomiting and diarrhea (Acute) Hyponatremia (Acute) Status post total hip replacement, right (Acute) This is a 73-year-old female was admitted with generalized weakness, not able to use even walker or cane because of weakness, diarrhea for about 2 days along with nausea. She denies any vomiting. ER, labs was consistent with acute kidney injury, elevated WBC count. Particularly patient was put on oral vancomycin for suspicion of C. difficile but later on discontinued with the test came negative. 1. 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 No bacteria seen. FENa 6.5%. Patient had about 900 mL urine output yesterday and 24 hours. 400 mL since 12 midnight Cumulative I and O's 10,438/610ml, +9800 mL. She had exposure of lisinopril about 1 to 2 weeks ago. IV fluid is discontinued. Patient has right arm PICC line and right subclavian tunneled dialysis catheter. Patient had dialysis on 03/08 and 03/09. Discussed with complaint manager. Serologies are pending. Urine culture is negative. Antibiotic, Rocephin discontinued. 2. Patient also has history of microscopic colitis: Patient is not taking any steroid or mesalamine at home. Currently patient does not have any GI symptoms. Entry bilaterally panel negative. It is having leukocytosis secondary to steroid. #2 discontinue 3. Patient had mild hypotension, blood pressure 80/36 on 03/05/2019. But currently blood pressure is in normal range. Avoid hypotension. DMt2 with morbid obesity - hold orals. SSI. 3. Bilateral lower extremity lymphedema - c/s wound care. She needs outpatient f/u with the wound care clinic she is not adequately caring for her legs. 4. HTN -hold antihypertensive as mentioned above. 5. HLD - hold statin 6. Onychomycosis - Podiatry has seen and evaluated. Trimming provided. follow up with own drilling field operator dr. Butler at [place]. DVT ppx: heparin Signout: Patient is supposed to have kidney biopsy by Dr. Fuchs on 03/11/2019. Wholesaler will coordinate with interventional radiologist for biopsy. Outpatient hemodialysis needs to be arranged by case specialist. Patient is a started on dialysis inpatient for first time Microbiology Past 72 Hours 03/06/19 23:35 Interface Orders Urine Culture - Final Culture exhibits no growth. 03/05/19 16:27 Stool Enteric Bacteriology - Final Laboratory Results 03/09/19 13:52: POC Glucose 158 H 03/09/19 16:11: POC Glucose 132 H 03/09/19 22:13: POC Glucose 160 H 03/10/19 05:32: Sodium 141, Potassium 3.2 L, Chloride 109 H, Carbon Dioxide 25.0, Anion Gap 7, BUN 60 H, Creatinine 3.26 H, Estim Creat Clear Calc 12.34, Est GFR (MDRD) Af Amer 18 L, Est GFR (MDRD) Non-Af 15 L, BUN/Creatinine Ratio 18.4, Glucose 82, Calcium 6.9 L 03/10/19 06:54: POC Glucose 84 03/10/19 10:47: POC Glucose 151 H Clinical Impression(s) from Imaging Studies Renal Ultrasound 03/06/19 11:38 IMPRESSION: No acute sonographic abnormality of the kidneys. No apparent atrophy. Normal echotexture. Solitary 4 mm calcification in the inferior pole of the left kidney may represent a vascular calcification or a nonobstructing calyceal calculus. Chest X-Ray 03/08/19 12:17 IMPRESSION: Cardiomegaly. Blunting of both costophrenic angles. The tip of the right sided hemodialysis catheter is at the junction of the superior vena cava and right atrium. Code Visit Inpatient E&M: 26850 [facility] Hosp L3
[2019-03-10 11:06] LABS: Bedside Glucose 151 mg/dL (70-110)
[2019-03-10 14:06] LABS: HEPATITIS B SURFACE AG Negative (Negative)
--- NOTE | 2019-03-10 14:48 | PCM.PROGNOTE ---
Patient Problems: Active and Suspected Problems Acute kidney injury (nontraumatic) (Acute) Vomiting and diarrhea (Acute) Hyponatremia (Acute) Subjective: still makes a lot of urine no cp/sob - Physical Exam General: Alert, Oriented x3, Cooperative HEENT: Atraumatic, PERRLA Oral: Moist Mucosa, No Gingival or Mucosal Lesions/ Ulcerations Neck: Supple, No JVD Lungs: Clear to auscultation, Normal air movement Cardiovascular: Regular rate, Regular Rhythm Abdomen: Bowel Sounds Present, Soft, Non Tender Extremities: No clubbing, No cyanosis, No edema Skin: No rashes Neurological: Cranial nerves II-XII grossly intact Vital Signs Temp Pulse Resp BP Pulse Ox 97.5 F L 76 16 101/47 L 96 03/10/19 09:42 03/10/19 13:29 03/10/19 13:29 03/10/19 11:06 03/10/19 13:29 Oxygen Delivery Method Room Air Weight: 113.2 kg Body Mass Index (BMI) 43.1 Intake and Output for Last 24 Hours 03/08/19 03/09/19 03/10/19 23:59 23:59 23:59 Intake Total 1340 / 1340 360 / 360 440 / 440 Output Total 1050 / 1050 950 / 950 1100 / 1100 Balance 290 / 290 -590 / -590 -660 / -660 Microbiology Past 72 Hours 03/06/19 23:35 Urine Culture - Final Interface Orders Culture exhibits no growth. Laboratory Tests Past 24 Hrs 03/10/19 05:32 Sodium 141 Potassium 3.2 L Chloride 109 H Carbon Dioxide 25.0 Anion Gap 7 BUN 60 H Creatinine 3.26 H Estim Creat Clear Calc 12.34 Est GFR (MDRD) Af Amer 18 L Est GFR (MDRD) Non-Af 15 L BUN/Creatinine Ratio 18.4 Glucose 82 Calcium 6.9 L POC Glucose 03/10/19 03/10/19 03/09/19 10:47 06:54 22:13 POC Glucose 151 H 84 160 H 03/09/19 16:11 POC Glucose 132 H Medical Necessity - Tobacco Use Smoking Status: Never smoker Tobacco Use: Non-smoker Assessment/Plan All Active Problems Acute kidney injury (nontraumatic) (Acute) Vomiting and diarrhea (Acute) Hyponatremia (Acute) Status post total hip replacement, right (Acute) 1. OSVALDO unclear etiology DDX ATN vs AIN r/o RPGN normal Scr in December this year.Had HD on 03/08 and today.Initially oliguric now significant UOP so no UF today with HD. check bmp in am for renal biopsy tomorrow arranged already by dr. Robertson.All serologies pending will f/u. Will likely dialyse again on Monday after biopsy. .Strict I and O's 2. Metabolic acidosis should improve further with HD 3. HTN controlled continue current meds Gastroenteritis history of microscopic colitis on steroids per primary
[2019-03-10] MEDS: Insulin Lispro 100 UNIT/ML INSULN.PEN SQ ×2 (16:09→21:17)
[2019-03-10 16:21] LABS: Bedside Glucose 181 mg/dL (70-110)
[2019-03-10] MEDS: Atorvastatin Calcium 80 MG Tablet PO (21:16)
[2019-03-10 21:26] LABS: Bedside Glucose 199 mg/dL (70-110)
[2019-03-11] VITALS (15 sets, daily range): BP systolic 113–122; BP diastolic 50–65; PULSE 65–130; RESP 13–20; TEMP 36.4–37.1; O2SAT 93–98
[2019-03-11 06:11] LABS: Anion Gap 9 (5-15); BUN 54 mg/dL (7-18); BUN/Creat Ratio 22.9 RATIO (10-20); Calcium,Total 7.2 mg/dL (8.5-10.1); Chloride 108 mmol/L (98-107); Creatinine, Serum 2.36 mg/dL (0.55-1.02); EST Glomerular Filtration Rate 22 mL/min (>60); Est Glom Filt Rate - Afr Amer 26 mL/min (>60); Estimated Creatinine Clearance 17.04 ml/min; Glucose 146 mg/dL (74-106); Potassium 3.4 mmol/L (3.5-5.1); Sodium Level 139 mmol/L (136-145)
[2019-03-11 06:43] LABS: Absolute Lymphocyte Count 1.33 X10^3/ul (0.83-4.51); Absolute Neutrophil Count 11.8 X10^3/uL (2.0-7.7); Basophil# 0.01 X10^3/uL; Basophil% 0.1 % (0-1); Eosinophil# 0.17 X10^3/uL; Eosinophils% 1.1 % (0-5); Hematocrit 32.1 % (37-47); Hemoglobin 10.4 g/dl (12.0-15.0); Lymphocyte # 1.33 X10^3/ul (4.0); Lymphocyte % 8.7 % (19-41); Mean Corp Hgb Conc 32.4 g/gl (32-36); Mean Corpuscular Hgb 23.9 pg (27.0-32.0); Mean Corpuscular Volume 73.6 fL (81-99); Mean Platelet Vol. 9.9 fl (6.2-12.0); Monocyte# 1.78 X10^3/uL; Monocyte% 11.7 % (0-10); Neutrophil # 11.78 X10^3/uL (2.7-7.7); Neutrophil % 77.2 % (47-70); Platelet Count 174 K/mm3 (150-450); RBC Distribution Width CV 18.3 % (11.6-14.6); RBC Distribution Width SD 47.9 fl (35.1-43.9); Red Blood Count 4.36 M/mm3 (4.2-5.4); White Blood Count 15.3 K/mm3 (4.4-11.0)
[2019-03-11] MEDS: Nystatin Powder 15gm Bottle 1 APPLIC TOPICAL ×3 (06:43→21:22)
[2019-03-11 06:46] LABS: Differential Indicated SCAN CRITERIA MET; POSITIVE COUNT NO; POSITIVE DIFFERENTIAL YES; POSITIVE MORPHOLOGY NO
[2019-03-11 06:55] LABS: Differential Comment SCANNED; Hypochromasia 1+; Microcytosis 2+; Platelet Estimate ADEQUATE (ADEQ)
[2019-03-11 07:06] LABS: Bedside Glucose 138 mg/dL (70-110)
[2019-03-11] MEDS: Folic Acid 1 MG Tablet PO (08:10)
[2019-03-11] MEDS: Metoprolol(XL)Succ 100 MG Tablet PO (08:12)
--- NOTE | 2019-03-11 09:33 | CASEMGMT ---
Hep panel obtained after call to lab and faxed to [facility] at this time. Fanny RICHARDSON CM
--- NOTE | 2019-03-11 10:10 | CASEMGMT ---
This RN CM placed call to Alice at [facility] and she is aware that hep panel was faxed this am, voices understanding. Maxime contact [phone] ext [phone]. Alice states they are still waiting on financial approval as pt is acute. Alice states that she will fax the schedule letter once approved, but she states that pt is set up for dialysis MWF at 1720 at this time. This RN CM will update pt. SStaten DEBRA GOLD
--- NOTE | 2019-03-11 10:47 | PCM.PN.REN ---
Patient Problems: Active and Suspected Problems Acute kidney injury (nontraumatic) (Acute) Vomiting and diarrhea (Acute) Hyponatremia (Acute) Subjective: Patient denies any complaint. No nausea no vomiting. No shortness of breath Patient states she is making enough urine - Physical Exam General: Alert, Oriented x3 HEENT: Atraumatic Oral: Moist Mucosa Neck: Supple, No JVD Lungs: Clear to auscultation, Normal air movement, No rhonchi, No wheeze, No rales Cardiovascular: Regular rate, Regular Rhythm, Normal S1, Normal S2 Abdomen: Bowel Sounds Present, Soft, Non Tender, Non-Distended Extremities: No clubbing, No cyanosis, Edema - + Edema of upper extremities, +1 edema of lower extremity Skin: No rashes Musculoskeletal: No Tenderness to Palpation of Joints or Extremities Lymphatic: No Cervical, Supraclavicular, or Inguinal Adenopathy Neurological: Cranial nerves II-XII grossly intact, Neuro grossly intact Psych/Mental Status: Appropriate Vital Signs Temp Pulse Resp BP Pulse Ox 97.7 F L 74 18 121/50 H 97 03/11/19 07:58 03/11/19 08:12 03/11/19 07:58 03/11/19 08:12 03/11/19 07:58 Oxygen Delivery Method Room Air Weight: 112.9 kg Body Mass Index (BMI) 43.1 Intake and Output for Last 24 Hours 03/09/19 03/10/19 03/11/19 23:59 23:59 23:59 Intake Total 360 / 360 680 / 680 500 / 500 Output Total 950 / 950 1450 / 1450 800 / 800 Balance -590 / -590 -770 / -770 -300 / -300 Microbiology Past 72 Hours 03/06/19 23:35 Urine Culture - Final Interface Orders Culture exhibits no growth. Laboratory Tests Past 24 Hrs 03/11/19 03/11/19 04:58 04:58 WBC 15.3 H RBC 4.36 Hgb 10.4 L Hct 32.1 L MCV 73.6 L MCH 23.9 L MCHC 32.4 RDW 18.3 H RDW Differential 47.9 H Plt Count 174 MPV 9.9 Immature Gran % (Auto) 1.200 H Neut % (Auto) 77.2 H Lymph % (Auto) 8.7 L Whiteside % (Auto) 11.7 H Eos % (Auto) 1.1 Baso % (Auto) 0.1 Absolute Neuts (auto) 11.8 H Absolute Lymphs (auto) 1.33 Total Counted Not Reportable Differential Comment SCANNED Diff Path Review May foll Platelet Estimate ADEQUATE Hypochromasia 1+ Microcytosis 2+ Sodium 139 Potassium 3.4 L Chloride 108 H Carbon Dioxide 22.0 Anion Gap 9 BUN 54 H Creatinine 2.36 H Estim Creat Clear Calc 17.04 Est GFR (MDRD) Af Amer 26 L Est GFR (MDRD) Non-Af 22 L BUN/Creatinine Ratio 22.9 H Glucose 146 H Calcium 7.2 L POC Glucose 03/11/19 03/10/19 03/10/19 06:41 21:16 16:07 POC Glucose 138 H 199 H 181 H 03/10/19 10:47 POC Glucose 151 H Medical Necessity - Tobacco Use Smoking Status: Never smoker Tobacco Use: Non-smoker Assessment/Plan All Active Problems Acute kidney injury (nontraumatic) (Acute) Vomiting and diarrhea (Acute) Hyponatremia (Acute) Status post total hip replacement, right (Acute) 1-acute kidney injury. patient has normal creatinine at the baseline. No showed 500 protein, RBCs 50-100 . 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 Patient started hemodialysis March 08. Patient had 2 session of hemodialysis so far on March 08 and . Creatinine is improving. Last creatinine trend 3.2->2.3. Nonoliguric. I will hold kidney biopsy. I will hold dialysis for today. I will continue to monitor for for recovery of kidney function. I will follow the pending serologies, C3, C4, ENEIDA, ANCA, antiglomerular basement membrane antibodies, and hepatitis panel. If creatinine continue to improve and the serologies are negative, there would be no need for kidney biopsy. If creatinine continues to improve, we will consult the surgeon again to remove hemodialysis access Please do function panel every day 2-hypokalemia. Potassium today 3.4. We will continue to monitor 3-metabolic acidosis. Resolved. No need for dialysis. Renal team will continue to follow. Please call if any question or concern. Tonie Azevedo MD
[2019-03-11] MEDS: Insulin Lispro 100 UNIT/ML INSULN.PEN SQ ×3 (11:12→21:24)
[2019-03-11 11:26] LABS: Bedside Glucose 184 mg/dL (70-110)
[2019-03-11 13:04] LABS: Hep B Surface Antibodies Non Reactive (.); Hepatitis B Core Ab Total Negative (Negative)
[2019-03-11 13:06] LABS: Anti-dsDNA Ab <1 IU/mL (0-9)
[2019-03-11 14:57] LABS: Pathologist Review Reviewed
[2019-03-11 16:55] LABS: Bedside Glucose 196 mg/dL (70-110)
--- NOTE | 2019-03-11 17:53 | PCM.PROGNOTE ---
Patient Problems: Active and Suspected Problems Acute kidney injury (nontraumatic) (Acute) Vomiting and diarrhea (Acute) Hyponatremia (Acute) Subjective: Patient was seen and examined today, I briefly talked with nephrology today and patient will not be dialyzed today and her kidney biopsy has been put on hold due to her improved creatinine. Patient is still putting out urine. Patient has no complaints of diarrhea. Patient's Solu-Medrol was stopped several days ago. Patient's white blood cell count is still elevated-today is 15.3. - Physical Exam General: Alert, Oriented x3, Cooperative, No apparent distress, Well developed, Well nourished HEENT: Atraumatic, PERRLA, EOMI, Normocephalic Oral: Moist Mucosa Neck: Supple, No JVD, Negative Carotid Bruits, No Nuchal Rigidity, Trachea Midline, Thyroid Normal Size and Texture Lungs: Clear to auscultation, Normal air movement, No rhonchi, No wheeze, No rales Cardiovascular: Regular rate, Regular Rhythm, Normal S1, Normal S2, No murmurs, No Ectopic Activity, PMI Normal, No rub noted, No Gallop Abdomen: Bowel Sounds Present, Soft, Non Tender Extremities: No clubbing, No cyanosis, Capillary Refill Less than 3 Seconds, Edema - Generalized lower leg edema is noted bilaterally Skin: No rashes, No breakdown Musculoskeletal: No Tenderness to Palpation of Joints or Extremities Neurological: Cranial nerves II-XII grossly intact, Neuro grossly intact, Sensory exam intact to light touch and pain Psych/Mental Status: Normal Affect, Appropriate, Alert and oriented to time, place, person, mood and affect Vital Signs Temp Pulse Resp BP Pulse Ox 98.7 F 69 18 119/50 L 98 03/11/19 13:40 03/11/19 16:00 03/11/19 13:40 03/11/19 13:40 03/11/19 13:40 Oxygen Delivery Method Room Air Weight: 112.9 kg Body Mass Index (BMI) 43.1 Intake and Output for Last 24 Hours 03/09/19 03/10/19 03/11/19 23:59 23:59 23:59 Intake Total 360 / 360 680 / 680 1250 / 1250 Output Total 950 / 950 1450 / 1450 1600 / 1600 Balance -590 / -590 -770 / -770 -350 / -350 Microbiology Past 72 Hours 03/06/19 23:35 Urine Culture - Final Interface Orders Culture exhibits no growth. Laboratory Tests Past 24 Hrs 03/05/19 03/09/19 03/11/19 20:00 06:30 04:58 WBC RBC Hgb Hct MCV MCH MCHC RDW RDW Differential Plt Count MPV Immature Gran % (Auto) Neut % (Auto) Lymph % (Auto) Charles % (Auto) Eos % (Auto) Baso % (Auto) Absolute Neuts (auto) Absolute Lymphs (auto) Total Counted Differential Comment Diff Path Review Platelet Estimate Hypochromasia Microcytosis Sodium 139 Potassium 3.4 L Chloride 108 H Carbon Dioxide 22.0 Anion Gap 9 BUN 54 H Creatinine 2.36 H Estim Creat Clear Calc 17.04 Est GFR (MDRD) Af Amer 26 L Est GFR (MDRD) Non-Af 22 L BUN/Creatinine Ratio 22.9 H Glucose 146 H Calcium 7.2 L Double Strand DNA Ab <1 Hep Bs Antigen Negative Hep Bs Antibody Non Reactive Hep B Core Total Ab Negative 03/11/19 04:58 WBC 15.3 H RBC 4.36 Hgb 10.4 L Hct 32.1 L MCV 73.6 L MCH 23.9 L MCHC 32.4 RDW 18.3 H RDW Differential 47.9 H Plt Count 174 MPV 9.9 Immature Gran % (Auto) 1.200 H Neut % (Auto) 77.2 H Lymph % (Auto) 8.7 L Charles % (Auto) 11.7 H Eos % (Auto) 1.1 Baso % (Auto) 0.1 Absolute Neuts (auto) 11.8 H Absolute Lymphs (auto) 1.33 Total Counted Not Reportable Differential Comment SCANNED Diff Path Review Reviewed Platelet Estimate ADEQUATE Hypochromasia 1+ Microcytosis 2+ Sodium Potassium Chloride Carbon Dioxide Anion Gap BUN Creatinine Estim Creat Clear Calc Est GFR (MDRD) Af Amer Est GFR (MDRD) Non-Af BUN/Creatinine Ratio Glucose Calcium Double Strand DNA Ab Hep Bs Antigen Hep Bs Antibody Hep B Core Total Ab POC Glucose 03/11/19 03/11/19 03/11/19 16:48 11:10 06:41 POC Glucose 196 H 184 H 138 H 03/10/19 21:16 POC Glucose 199 H Medical Necessity - Tobacco Use Smoking Status: Never smoker Tobacco Use: Non-smoker Assessment/Plan All Active Problems Acute kidney injury (nontraumatic) (Acute) Vomiting and diarrhea (Acute) Hyponatremia (Acute) Status post total hip replacement, right (Resolved) #1 acute kidney injury-this appears to be resolving, continue to monitor labs, nephrology is following #2 Hemoccult-positive stools-etiology unclear at this time, I will order a serum iron and a iron binding capacity-patient has mild anemia. #3 bilateral lower extremity lymphedema #4 hypertension #5 type 2 diabetes-continue to monitor blood sugars #6 hyperlipidemia Code Visit Inpatient E&M: 16154 Subs Hosp L2
[2019-03-11] MEDS: Atorvastatin Calcium 80 MG Tablet PO (21:21)
[2019-03-11 22:05] LABS: Bedside Glucose 186 mg/dL (70-110)
[2019-03-12] VITALS (11 sets, daily range): BP systolic 103–116; BP diastolic 40–49; PULSE 63–71; RESP 15–18; TEMP 36.6–36.8; O2SAT 94–98
[2019-03-12] MEDS: Nystatin Powder 15gm Bottle 1 APPLIC TOPICAL ×3 (06:36→21:37)
--- NOTE | 2019-03-12 06:54 | PCA ---
Weighed patient today with minimal requirements using bedscale patients weight was higher then yesterday notified RN Minnie of change.
[2019-03-12 07:05] LABS: Bedside Glucose 135 mg/dL (70-110)
--- NOTE | 2019-03-12 08:43 | CASEMGMT ---
TRI spoke with patient asking her if she still feels like she needs shelter at discharge. She said she would like to go to TCU as she does not need dialysis. TRI told her SW will make sure she is not going to need dialysis at d/c and if not we can work on getting her into TCU. TRI left a message for Melly. Await Nephrology. Khushi WATTERS MSW
[2019-03-12] MEDS: Folic Acid 1 MG Tablet PO (09:14)
[2019-03-12] MEDS: Metoprolol(XL)Succ 100 MG Tablet PO (09:14)
[2019-03-12 09:35] LABS: Anion Gap 5 (5-15); BUN 40 mg/dL (7-18); BUN/Creat Ratio 22.5 RATIO (10-20); Calcium,Total 7.7 mg/dL (8.5-10.1); Chloride 107 mmol/L (98-107); Creatinine, Serum 1.78 mg/dL (0.55-1.02); EST Glomerular Filtration Rate 30 mL/min (>60); Est Glom Filt Rate - Afr Amer 36 mL/min (>60); Glucose 157 mg/dL (74-106); Potassium 3.3 mmol/L (3.5-5.1); Sodium Level 140 mmol/L (136-145)
[2019-03-12] MEDS: Insulin Lispro 100 UNIT/ML INSULN.PEN SQ ×3 (11:31→21:35)
[2019-03-12 11:41] LABS: Bedside Glucose 203 mg/dL (70-110)
--- NOTE | 2019-03-12 14:52 | CASEMGMT ---
Per Dr. Azevedo, pt no longer needs dialysis at this time and referral for OP dialysis can be cancelled at this time. Call to [facility] and [place] made aware at this time, voices understanding at this time. This RN CM also called Alice at [facility] admissions and she is made aware of same at this time, voices understanding. [facility] RN CM
--- NOTE | 2019-03-12 14:59 | PCM.PN.REN ---
Patient Problems: Active and Suspected Problems Acute kidney injury (nontraumatic) (Acute) Vomiting and diarrhea (Acute) Hyponatremia (Acute) Subjective: No complaints. No nausea No vomiting. No SOB - Physical Exam General: Alert, Oriented x3 HEENT: Atraumatic Oral: Moist Mucosa Neck: Supple, No JVD Lungs: Clear to auscultation, Normal air movement, No rhonchi, No wheeze Cardiovascular: Regular rate, Regular Rhythm, Normal S1, Normal S2 Abdomen: Bowel Sounds Present, Non Tender, Non-Distended Extremities: No clubbing, No cyanosis, No edema Musculoskeletal: No Tenderness to Palpation of Joints or Extremities, No Muscle Wasting, Arthritic Changes Lymphatic: No Cervical, Supraclavicular, or Inguinal Adenopathy Neurological: Cranial nerves II-XII grossly intact, Neuro grossly intact Psych/Mental Status: Appropriate Vital Signs Temp Pulse Resp BP Pulse Ox 98.0 F 67 18 108/48 L 95 03/12/19 14:00 03/12/19 14:00 03/12/19 14:00 03/12/19 14:00 03/12/19 14:00 Oxygen Delivery Method Room Air Weight: 115.8 kg Body Mass Index (BMI) 43.1 Intake and Output for Last 24 Hours 03/10/19 03/11/19 03/12/19 23:59 23:59 23:59 Intake Total 680 / 680 1760 / 1760 720 / 720 Output Total 1450 / 1450 2049 / 2049 825 / 825 Balance -770 / -770 -290 / -290 -105 / -105 Laboratory Tests Past 24 Hrs 03/12/19 08:50 Sodium 140 Potassium 3.3 L Chloride 107 Carbon Dioxide 28.0 Anion Gap 5 BUN 40 H Creatinine 1.78 H Estim Creat Clear Calc 22.60 Est GFR (MDRD) Af Amer 36 L Est GFR (MDRD) Non-Af 30 L BUN/Creatinine Ratio 22.5 H Glucose 157 H Calcium 7.7 L POC Glucose 03/12/19 03/12/19 03/11/19 11:28 06:39 21:19 POC Glucose 203 H 135 H 186 H 03/11/19 16:48 POC Glucose 196 H Medical Necessity - Tobacco Use Smoking Status: Never smoker Tobacco Use: Non-smoker Assessment/Plan All Active Problems Acute kidney injury (nontraumatic) (Acute) Vomiting and diarrhea (Acute) Hyponatremia (Acute) Status post total hip replacement, right (Resolved) 1-Acute Kidney Injury. patient has normal creatinine at the baseline. No showed 500 protein, RBCs 50-100 . OSVALDO is most probably ATN. Kidney function is recovering. Last Cr trend 2.2->1.7 mg/dL. UOP is 2L ENEIDA is negative. hepatitis panel, ANCA and C3/C4 are still pending No need for kidney Bx No need for HD Will consult the surgeon to remove the access Will continue to monitor kidney function recovery Avoid ACEI/ARB and IV contrast 2-hypokalemia. Potassium today 3.3. Will give the patient KCl 40 mEq PO on time 3-metabolic acidosis. Resolved. No need for dialysis. Renal team will continue to follow. Please call if any question or concern. Tonie Azevedo MD
--- NOTE | 2019-03-12 15:30 | PCM.PN.BLA ---
Progress Note Patient no longer needs temporary dialysis catheters. Dr. Tierney is aware of dialysis catheter removal consult and will perform this at bedside prior to patient being discharged. Code Visit Inpatient E&M: 38702 Subs Hosp L1 - No charge
[2019-03-12 16:07] LABS: Complement C3 167 mg/dL (82-167); Cytoplasmic Ab (C-ANCA) <1:20 titer (Neg:<1:20)
[2019-03-12 16:46] LABS: Bedside Glucose 163 mg/dL (70-110)
--- NOTE | 2019-03-12 17:48 | PCM.PROGNOTE ---
Patient Problems: Active and Suspected Problems Acute kidney injury (nontraumatic) (Acute) Vomiting and diarrhea (Acute) Hyponatremia (Acute) Subjective: Patient was seen and examined today, I talked with nephrology about her care. Patient's creatinine is improved today, patient has no complaints. - Physical Exam General: Alert, Oriented x3, Cooperative, No apparent distress, Well developed HEENT: Atraumatic, PERRLA, EOMI, Normocephalic Oral: Moist Mucosa Neck: Supple, No JVD, Trachea Midline, Thyroid Normal Size and Texture Lungs: Clear to auscultation, Normal air movement, No rhonchi, No wheeze, No rales Cardiovascular: Regular rate, Regular Rhythm, Normal S1, Normal S2, No murmurs, No Ectopic Activity, PMI Normal, No rub noted, No Gallop Abdomen: Bowel Sounds Present, Soft, Non Tender, Non-Distended, No hernias noted Extremities: No clubbing, No cyanosis, Capillary Refill Less than 3 Seconds, Edema - Generalized edema is noted over both lower legs Skin: No rashes, No breakdown Musculoskeletal: No Tenderness to Palpation of Joints or Extremities Neurological: Cranial nerves II-XII grossly intact, Neuro grossly intact, Sensory exam intact to light touch and pain, Coordination normal Psych/Mental Status: Normal Affect, Appropriate, Alert and oriented to time, place, person, mood and affect Vital Signs Temp Pulse Resp BP Pulse Ox 98.0 F 63 18 108/48 L 95 03/12/19 14:00 03/12/19 16:33 03/12/19 14:00 03/12/19 14:00 03/12/19 14:00 Oxygen Delivery Method Room Air Weight: 115.8 kg Body Mass Index (BMI) 43.1 Intake and Output for Last 24 Hours 03/10/19 03/11/19 03/12/19 23:59 23:59 23:59 Intake Total 680 / 680 1760 / 1760 720 / 720 Output Total 1450 / 1450 2049 / 2049 825 / 825 Balance -770 / -770 -290 / -290 -105 / -105 Laboratory Tests Past 24 Hrs 03/12/19 08:50 Sodium 140 Potassium 3.3 L Chloride 107 Carbon Dioxide 28.0 Anion Gap 5 BUN 40 H Creatinine 1.78 H Estim Creat Clear Calc 22.60 Est GFR (MDRD) Af Amer 36 L Est GFR (MDRD) Non-Af 30 L BUN/Creatinine Ratio 22.5 H Glucose 157 H Calcium 7.7 L POC Glucose 03/12/19 03/12/19 03/12/19 16:39 11:28 06:39 POC Glucose 163 H 203 H 135 H 03/11/19 21:19 POC Glucose 186 H Medical Necessity - Tobacco Use Smoking Status: Never smoker Tobacco Use: Non-smoker Assessment/Plan All Active Problems Acute kidney injury (nontraumatic) (Acute) Vomiting and diarrhea (Acute) Hyponatremia (Acute) Status post total hip replacement, right (Resolved) #1 acute kidney injury-this appears to be resolving, continue to monitor labs, nephrology is following, nephrology states that the patient's tunneled dialysis catheter can be removed at this time, the plan is for the catheter to be removed on #2 Hemoccult-positive stools-etiology unclear at this time, I will order a serum iron and a iron binding capacity-patient has mild anemia, hemoglobin will be checked tomorrow #3 bilateral lower extremity lymphedema #4 hypertension #5 type 2 diabetes-continue to monitor blood sugars #6 hyperlipidemia #7 generalized debility-secondary to multiple medical problems, patient is agreed to go to an extended care facility for short-term rehab, PT and OT will continue to see the patient Code Visit Inpatient E&M: 98893 Subs Hosp L2
[2019-03-12] MEDS: Atorvastatin Calcium 80 MG Tablet PO (21:37)
[2019-03-13] VITALS (11 sets, daily range): BP systolic 94–123; BP diastolic 43–62; PULSE 58–74; RESP 16–19; TEMP 36.4–36.8; O2SAT 92–100
[2019-03-13 00:50] LABS: Bedside Glucose 172 mg/dL (70-110)
[2019-03-13] MEDS: Nystatin Powder 15gm Bottle 1 APPLIC TOPICAL ×2 (05:34→21:43)
[2019-03-13 05:59] LABS: Hematocrit 30.9 % (37-47); Hemoglobin 9.8 g/dl (12.0-15.0)
[2019-03-13 06:14] LABS: Iron 23 ug/dL (50-170); Iron Binding Capacity,Total 223 ug/dL (250-450); PERCENT IRON SATURATION 10.3 % (15.0-55.0)
[2019-03-13 07:56] LABS: Anion Gap 6 (5-15); BUN 33 mg/dL (7-18); BUN/Creat Ratio 24.6 RATIO (10-20); Calcium,Total 7.5 mg/dL (8.5-10.1); Chloride 109 mmol/L (98-107); Creatinine, Serum 1.34 mg/dL (0.55-1.02); EST Glomerular Filtration Rate 41 mL/min (>60); Est Glom Filt Rate - Afr Amer 50 mL/min (>60); Estimated Creatinine Clearance 30.01 ml/min; Glucose 104 mg/dL (74-106); Sodium Level 141 mmol/L (136-145)
[2019-03-13 08:21] LABS: Bedside Glucose 94 mg/dL (70-110)
[2019-03-13] MEDS: Folic Acid 1 MG Tablet PO (10:04)
[2019-03-13] MEDS: Metoprolol(XL)Succ 100 MG Tablet PO (10:04)
--- NOTE | 2019-03-13 11:40 | NURSING ---
wound photo: right lateral lower leg
[2019-03-13] MEDS: Insulin Lispro 100 UNIT/ML INSULN.PEN SQ ×3 (12:16→21:43)
[2019-03-13 13:02] LABS: Bedside Glucose 193 mg/dL (70-110)
[2019-03-13 13:33] LABS: Anti-Glomerular Basement Memb 3 units (0-20); Perinuclear Ab (P-ANCA) <1:20 titer (Neg:<1:20)
--- NOTE | 2019-03-13 14:22 | PCM.PN.REN ---
Patient Problems: Active and Suspected Problems Acute kidney injury (nontraumatic) (Acute) Vomiting and diarrhea (Acute) Hyponatremia (Acute) Subjective: Doing well. No nausea No vomiting. No SOB Edema is improving - Physical Exam General: Alert, Oriented x3 HEENT: Atraumatic Oral: Moist Mucosa Neck: Supple, No JVD Lungs: Clear to auscultation, Normal air movement, No rhonchi, No wheeze Cardiovascular: Regular rate, Regular Rhythm, Normal S1, Normal S2 Abdomen: Bowel Sounds Present, Soft, Non Tender, Non-Distended Extremities: No clubbing, No cyanosis, No edema Skin: No rashes Musculoskeletal: No Tenderness to Palpation of Joints or Extremities Lymphatic: No Cervical, Supraclavicular, or Inguinal Adenopathy Neurological: Cranial nerves II-XII grossly intact, Neuro grossly intact Psych/Mental Status: Appropriate Vital Signs Temp Pulse Resp BP Pulse Ox 97.5 F L 74 16 113/43 L 100 03/13/19 09:58 03/13/19 10:04 03/13/19 09:58 03/13/19 09:58 03/13/19 09:58 Oxygen Delivery Method Room Air Weight: 112.7 kg Body Mass Index (BMI) 43.1 Intake and Output for Last 24 Hours 03/11/19 03/12/19 03/13/19 23:59 23:59 23:59 Intake Total 1760 / 1760 1520 / 1520 20 / 20 Output Total 2049 / 2049 1665 / 1665 425 / 425 Balance -290 / -290 -145 / -145 -405 / -405 Laboratory Tests Past 24 Hrs 03/05/19 03/13/19 03/13/19 20:00 05:35 05:35 Hgb 9.8 L Hct 30.9 L Sodium Potassium Chloride Carbon Dioxide Anion Gap BUN Creatinine Estim Creat Clear Calc Est GFR (MDRD) Af Amer Est GFR (MDRD) Non-Af BUN/Creatinine Ratio Glucose Calcium Iron 23 L TIBC 223 L Iron Saturation 10.3 L c-ANCA Antibody <1:20 Atypical p-ANCA 1:320 H p-ANCA Antibody <1:20 Glomerular Base Memb Ab 3 Complement C3 167 03/13/19 05:35 Hgb Hct Sodium 141 Potassium 3.0 L Chloride 109 H Carbon Dioxide 26.0 Anion Gap 6 BUN 33 H Creatinine 1.34 H Estim Creat Clear Calc 30.01 Est GFR (MDRD) Af Amer 50 L Est GFR (MDRD) Non-Af 41 L BUN/Creatinine Ratio 24.6 H Glucose 104 Calcium 7.5 L Iron TIBC Iron Saturation c-ANCA Antibody Atypical p-ANCA p-ANCA Antibody Glomerular Base Memb Ab Complement C3 POC Glucose 03/13/19 03/13/19 03/12/19 12:14 06:40 21:34 POC Glucose 193 H 94 172 H 03/12/19 16:39 POC Glucose 163 H Medical Necessity - Tobacco Use Smoking Status: Never smoker Tobacco Use: Non-smoker Assessment/Plan All Active Problems Acute kidney injury (nontraumatic) (Acute) Vomiting and diarrhea (Acute) Hyponatremia (Acute) Status post total hip replacement, right (Resolved) 1-Acute Kidney Injury. patient has normal creatinine at the baseline. No showed 500 protein, RBCs 50-100. Atypical ANCA is positive Kidney function improved ( received 3 days of Methylprednisone for microscopic colitis). No kidney Bx done because the kidney function has been improving. Cr is down to 1.3 mg/dL . UOP is 1.6 L Avoid ACEI/ARB and IV contrast Pt might need kidney Bx if kidney function worsens again . Will repeat UA Dr. Tierney to remove HD access either today or tomorrow 2-hypokalemia. Potassium today 3.0. Will give the patient KCl 40 mEq PO on time 3-metabolic acidosis. Resolved. No need for dialysis. Renal team will continue to follow. Please call if any question or concern at [phone] D/w Dr. Graham. Tonie Azevedo MD
[2019-03-13 16:56] LABS: Bedside Glucose 198 mg/dL (70-110)
--- NOTE | 2019-03-13 17:47 | PN_ITS ---
Patient Problems: Active and Suspected Problems Acute kidney injury (nontraumatic) (Acute) Vomiting and diarrhea (Acute) Hyponatremia (Acute) Subjective: Patient was seen and examined today, she received Venofer again today and potassium replacement. I talked briefly with nephrology about her care, patient's creatinine is improved today. We are currently awaiting approval for placement in a detention facility. - Physical Exam General: Alert, Oriented x3, Cooperative, No apparent distress, Well developed HEENT: Atraumatic, PERRLA, EOMI, Normocephalic Oral: Moist Mucosa Neck: Supple, No Nuchal Rigidity, Trachea Midline, Thyroid Normal Size and Texture Lungs: Clear to auscultation, Normal air movement, No rhonchi, No wheeze, No rales Cardiovascular: Regular rate, Regular Rhythm, Normal S1, Normal S2, No murmurs, No Ectopic Activity Abdomen: Bowel Sounds Present, Soft, Non Tender, Non-Distended, No hernias noted Extremities: Capillary Refill Less than 3 Seconds, Edema - Chronic edematous changes are noted over both lower legs Skin: No rashes, No breakdown Musculoskeletal: No Tenderness to Palpation of Joints or Extremities Neurological: Cranial nerves II-XII grossly intact, Neuro grossly intact, Sensory exam intact to light touch and pain, Coordination normal Psych/Mental Status: Normal Affect, Appropriate, Alert and oriented to time, place, person, mood and affect Vital Signs Temp Pulse Resp BP Pulse Ox 98.2 F 65 16 123/62 H 98 03/13/19 15:24 03/13/19 15:24 03/13/19 15:24 03/13/19 15:24 03/13/19 15:24 Oxygen Delivery Method Room Air Weight: 112.7 kg Body Mass Index (BMI) 43.1 Intake and Output for Last 24 Hours 03/11/19 03/12/19 03/13/19 23:59 23:59 23:59 Intake Total 1760 / 1760 1520 / 1520 Output Total 2049 1665 / 1665 425 / 425 Balance -290 / -290 -145 / -145 -405 / -405 Laboratory Tests Past 24 Hrs 03/05/19 03/13/19 03/13/19 20:00 05:35 05:35 Hgb 9.8 L Hct 30.9 L Sodium Potassium Chloride Carbon Dioxide Anion Gap BUN Creatinine Estim Creat Clear Calc Est GFR (MDRD) Af Amer Est GFR (MDRD) Non-Af BUN/Creatinine Ratio Glucose Calcium Iron 23 L TIBC 223 L Iron Saturation 10.3 L c-ANCA Antibody <1:20 Atypical p-ANCA 1:320 H p-ANCA Antibody <1:20 Glomerular Base Memb Ab 3 Complement C3 167 03/13/19 05:35 Hgb Hct Sodium 141 Potassium 3.0 L Chloride 109 H Carbon Dioxide 26.0 Anion Gap 6 BUN 33 H Creatinine 1.34 H Estim Creat Clear Calc 30.01 Est GFR (MDRD) Af Amer 50 L Est GFR (MDRD) Non-Af 41 L BUN/Creatinine Ratio 24.6 H Glucose 104 Calcium 7.5 L Iron TIBC Iron Saturation c-ANCA Antibody Atypical p-ANCA p-ANCA Antibody Glomerular Base Memb Ab Complement C3 POC Glucose 03/13/19 03/13/19 03/13/19 16:45 12:14 06:40 POC Glucose 198 H 193 H 94 03/12/19 21:34 POC Glucose 172 H Medical Necessity - Tobacco Use Smoking Status: Never smoker Tobacco Use: Non-smoker Assessment/Plan All Active Problems Acute kidney injury (nontraumatic) (Acute) Vomiting and diarrhea (Acute) Hyponatremia (Acute) Status post total hip replacement, right (Resolved) #1 acute kidney injury-this appears to be resolving, continue to monitor labs, nephrology is following, nephrology states that the patient's tunneled dialysis catheter can be removed at this time, the plan is for the catheter to be removed on #2 Hemoccult-positive stools-etiology unclear at this time, this will need worked up in the near future #3 bilateral lower extremity lymphedema #4 hypertension #5 type 2 diabetes-continue to monitor blood sugars #6 hyperlipidemia #7 generalized debility-secondary to multiple medical problems, patient is agreed to go to an extended care facility for short-term rehab, PT and OT will continue to see the patient #8 iron deficiency anemia-patient will receive Venofer again tomorrow, she will go on oral iron when she is discharged from the hospital Code Visit Inpatient E&M: [id number] Subs Hosp L2
[2019-03-13] MEDS: Atorvastatin Calcium 80 MG Tablet PO (21:43)
[2019-03-13 22:06] LABS: Bedside Glucose 185 mg/dL (70-110)
[2019-03-14] VITALS (8 sets, daily range): BP systolic 110–125; BP diastolic 42–61; PULSE 60–163; RESP 14–18; TEMP 36.6–36.8; O2SAT 92–97
[2019-03-14] MEDS: Nystatin Powder 15gm Bottle 1 APPLIC TOPICAL (05:10)
[2019-03-14 06:46] LABS: Bedside Glucose 147 mg/dL (70-110)
[2019-03-14 08:29] LABS: Hemoglobin 9.8 g/dl (12.0-15.0)
[2019-03-14 08:47] LABS: Anion Gap 6 (5-15); BUN 22 mg/dL (7-18); BUN/Creat Ratio 18.6 RATIO (10-20); Calcium,Total 7.8 mg/dL (8.5-10.1); Chloride 109 mmol/L (98-107); Creatinine, Serum 1.18 mg/dL (0.55-1.02); EST Glomerular Filtration Rate 48 mL/min (>60); Est Glom Filt Rate - Afr Amer 58 mL/min (>60); Estimated Creatinine Clearance 34.08 ml/min; Glucose 144 mg/dL (74-106); Potassium 3.5 mmol/L (3.5-5.1); Sodium Level 141 mmol/L (136-145)
[2019-03-14] MEDS: Metoprolol(XL)Succ 100 MG Tablet PO ×2 (09:37)
[2019-03-14] MEDS: Folic Acid 1 MG Tablet PO (09:37)
--- NOTE | 2019-03-14 10:15 | PCM.PN.REN ---
Patient Problems: Active and Suspected Problems Acute kidney injury (nontraumatic) (Acute) Vomiting and diarrhea (Acute) Hyponatremia (Acute) Subjective: No nausea No vomiting. No SOB - Physical Exam General: Alert, Oriented x3 HEENT: Atraumatic Oral: Moist Mucosa Neck: Supple, No JVD Lungs: Clear to auscultation, Normal air movement, No rhonchi, No wheeze Cardiovascular: Regular rate, Regular Rhythm, Normal S1, Normal S2 Abdomen: Bowel Sounds Present, Soft, Non Tender, Non-Distended Extremities: No clubbing, No cyanosis, No edema Skin: No rashes Musculoskeletal: No Tenderness to Palpation of Joints or Extremities Lymphatic: No Cervical, Supraclavicular, or Inguinal Adenopathy Neurological: Cranial nerves II-XII grossly intact, Neuro grossly intact Psych/Mental Status: Appropriate Vital Signs Temp Pulse Resp BP Pulse Ox 98.0 F 69 16 110/61 95 03/14/19 08:30 03/14/19 09:37 03/14/19 08:30 03/14/19 08:30 03/14/19 08:30 Oxygen Delivery Method Room Air Weight: 113.1 kg Body Mass Index (BMI) 43.1 Intake and Output for Last 24 Hours 03/12/19 03/13/19 03/14/19 23:59 23:59 23:59 Intake Total 1520 / 1520 740 / 740 120 / 120 Output Total 1665 / 1665 1400 / 1400 500 / 500 Balance -145 / -145 -660 / -660 -380 / -380 Laboratory Tests Past 24 Hrs 03/05/19 03/14/19 03/14/19 20:00 08:20 08:20 Hgb 9.8 L Hct 31.0 L Sodium 141 Potassium 3.5 Chloride 109 H Carbon Dioxide 26.0 Anion Gap 6 BUN 22 H Creatinine 1.18 H Estim Creat Clear Calc 34.08 Est GFR (MDRD) Af Amer 58 L Est GFR (MDRD) Non-Af 48 L BUN/Creatinine Ratio 18.6 Glucose 144 H Calcium 7.8 L c-ANCA Antibody <1:20 Atypical p-ANCA 1:320 H p-ANCA Antibody <1:20 Glomerular Base Memb Ab 3 Complement C3 167 POC Glucose 03/14/19 03/13/19 03/13/19 06:38 21:40 16:45 POC Glucose 147 H 185 H 198 H 03/13/19 12:14 POC Glucose 193 H Medical Necessity - Tobacco Use Smoking Status: Never smoker Tobacco Use: Non-smoker Assessment/Plan All Active Problems Acute kidney injury (nontraumatic) (Acute) Vomiting and diarrhea (Acute) Hyponatremia (Acute) Status post total hip replacement, right (Resolved) 1-Acute Kidney Injury. patient has normal creatinine at the baseline. No showed 500 protein, RBCs 50-100. Atypical ANCA is positive Kidney function improved ( received 3 days of Methylprednisone for microscopic colitis). No kidney Bx done because the kidney function has been improving. Last 24 hrs Cr trend 1.3->1.18 mg/dL Avoid ACEI/ARB and IV contrast Pt might need kidney Bx if kidney function worsens again . Will repeat UA Dr. Tierney to remove HD access either today 2-hypokalemia. resolved with replacement. K today is 3.5 3-metabolic acidosis. Resolved. No need for dialysis. Renal team will continue to follow. Please call if any question or concern at [phone] D/w Dr. Graham. Tonie Azevedo MD
--- NOTE | 2019-03-14 11:20 | CASEMGMT ---
Patient was denied by insurance for TCU. TRI spoke with patient and let her know. She was in agreement with [facility] Intermediate, PT, and OT. TRI also called patient's niece and let her know patient does not need dialysis, her insurance denied TCU, and she will be going home with home health. She was in agreement with this plan. HH to be set up. Khushi NEWELL
--- NOTE | 2019-03-14 11:39 | DCINST_ITS ---
- Discharge Diagnoses Current Active Problems: Current Active and Chronic Problems Acute kidney injury (nontraumatic) (Acute) Vomiting and diarrhea (Acute) Hyponatremia (Acute) Microscopic colitis (Chronic) Lymphedema (Chronic) Tinea unguium (Chronic) Toe pain, right (Chronic) Toe pain, left (Chronic) You will use the following diet at home:: Calorie/Carbohydrate Controlled (specify 1200, 1400, etc) - 1800 elizabeth Your food should be the consistency of: Regular Your liquids should be the consistency of: Regular/Thin Discharge Activity: Return to Normal Activity Weight Bearing Status: Full weight bearing Additional Dressing/Incision Instructions:: You may remove your neck dressing in 3 days. Leave the Steri-Strips in place for 1 week. Keep the catheter site clean and dry. The dialysis center will assist with dressing changes of the catheter Allergies/Adverse Reactions: Allergies chlorhexidine Allergy (Verified 03/05/19 11:56) Unknown Iodinated Contrast- Oral and IV Dye [CONTRASTS] Allergy (Verified 03/05/19 11:56) Other iodine Allergy (Verified 03/05/19 11:56) Unknown Medications to take at Discharge Folic Acid 1 mg PO DAILY@0800 01/21/17 Metoprolol Succinate [Toprol Xl] 100 mg PO DAILY 01/21/17 Rosuvastatin Calcium [Crestor] 40 mg PO MOWEFR 01/21/17 Acetaminophen [Tylenol 8 Hour] 650 mg PO PRN PRN 03/05/19 Alendronate Sodium 70 mg PO FAUSTIN 03/05/19 Calcium Carb/Vitamin D [Caltrate-600 With Vit D Tab] 1 tab PO BID 03/05/19 Cholecalciferol (VIT D3) [Vitamin D3] 3,000 unit PO DAILY 03/05/19 Cholecalciferol (Vitamin D3) [Vitamin D3] 5,000 unit PO DAILY 03/05/19 Dulaglutide [Trulicity] 1 mg SQ FR 03/05/19 Insulin Degludec [Tresiba Flextouch U-200] 32 units SQ DAILY 03/05/19 Metformin(XR) [Glucophage Xr] 1,000 mg PO BID 03/05/19 Acetaminophen [Tylenol Tablet] 650 mg PO Q6H PRN PRN tablet 03/14/19 Ferrous Sulfate 325 mg PO BIDCM #60 tab 03/14/19 The following prescriptions were given: Ferrous Sulfate 325 mg PO BIDCM #60 tab Primary Care Physician: Elena Mims DO [Primary Care Provider] - Please follow up with your Primary Care Physician in: in 2 weeks Test Results: Test results from this visit will be discussed in further detail at your follow- up appointment, if applicable. Please Follow Up With: Tonie Azevedo MD When: call for appointment
[2019-03-14] MEDS: Insulin Lispro 100 UNIT/ML INSULN.PEN SQ (11:46)
[2019-03-14 12:06] LABS: Bedside Glucose 178 mg/dL (70-110)
--- NOTE | 2019-03-14 13:17 | CASEMGMT ---
TRI set up home health with [facility]. She will have Long-Term, PT, and OT. TRI let patient know this information and that they may not be out until Monday. She said that is fine. Plan: d/c home with [facility] Long-Term, PT, and OT. Khushi WATTERS MSW
--- NOTE | 2019-03-14 13:33 | PCM.OPRPT ---
Problem List (1) Acute kidney injury (nontraumatic) Status: Acute Report of Operation Date of Procedure: 03/14/19 Pre-Operative Diagnosis: Resolution of acute kidney injury Post-Operative Diagnosis: Same Surgery/Procedure Performed:: Removal right internal jugular tunneled hemodialysis catheter Description of Surgical Findings:: Timeout and informed consent was obtained. At the bedside in the patient's room her head of bed was elevated 30 degrees. The right chest and neck were prepped with Betadine. 9 cc of 1% lidocaine was used as a local anesthetic. The nylon suture holding the catheters was transected and with gentle continuous pressure the Dacron cuff which had not yet had time to incorporate was easily removed. With continuous pressure held upon the tunnel site the catheter was removed. Sterile dressings were applied. Blood loss was minimal. She tolerated the procedure well and there is no apparent complication. The catheter was inspected was noted to be completely intact and safely removed. Post removal instructions provided. John Tierney M.D., F.A.C.S. Type of Anesthesia:: Local
[2019-03-14 13:42] LABS: Mucous, Urine 0 SEEN /hpf (<or=2+); Squamous Epithelial Cells - UA 0 SEEN /hpf (5-10); White Blood Cells 0 SEEN /hpf (0-5)
[2019-03-14 13:43] LABS: Color, Urine Yellow (Yellow); Glucose, Dipstick Normal (Normal); Ketone-Dipstick Negative (Negative); Leukocyte Esterase-Dipstick 25 /ul (Negative); Nitrite-Dipstick Negative (Negative); Occult Blood-Urine 250 /ul (Negative); Protein-Dipstick 15 mg/dl (Negative); Urine Bilirubin Dipstick Negative (Negative); Urine Clarity Clear (Clear); Urine Urobilinogen Normal (Normal)
[2019-03-14 13:49] LABS: Bacteria 1+ /hpf (None Seen); Red Blood Cells-Urine 0-5 SEEN /hpf (0-5)
--- NOTE | 2019-03-14 14:10 | CASEMGMT ---
SW received a call from patient's friend/landlord. She said she is concerned as patient has 30 steps to get to her bathroom. TRI told her insurance denied the request for assisted. TRI told her she was set up with home health. She thanked TRI for talking with her. SW spoke with patient and gave her the private duty list. Patient said she feels fine with going home. She said her place is all one level. Patient's friend called while SW was in the room. It turns out her friend meant foot steps not actual steps to climb. Patient is not concerned. Plan: Home with [facility] retirement, PT, and OT. Khushi NEWELL
--- NOTE | 2019-03-15 09:42 | PCM.DC.SUM ---
Discharge Date and Diagnosis Date of Admission: 03/05/19 Date of Discharge: 03/14/19 - Primary Discharge Diagnosis #1 acute kidney injury #2 Hemoccult-positive stools-etiology unclear #3 bilateral lower extremity lymphedema #4 hypertension #5 type 2 diabetes #6 hyperlipidemia #7 generalized debility-secondary to multiple medical problems #8 iron deficiency anemia-secondary to unexplained GI blood loss - Secondary Discharge Diagnosis Chronic Problems Microscopic colitis (Chronic) Lymphedema (Chronic) Tinea unguium (Chronic) Toe pain, right (Chronic) Toe pain, left (Chronic) Osteoarthritis (Chronic) Type II diabetes mellitus (Chronic) Dyslipidemia (Chronic) Essential hypertension (Chronic) History of gastroesophageal reflux (GERD) (Chronic) History of irritable colon (Chronic) Morbid obesity (Chronic) Hospital Course and Treatment Consultations 03/05/19 16:31 Consult: Onc/Wound/manager supply chain Routine Comment: Operations: None Procedures: Dialysis, - - Insertion of tunneled dialysis catheter Summary of Care Provided: The patient is a 73 year old F who was seen in the emergency room at [facility] with a chief complaint of severe weakness. Patient was living alone and was unable to take care of herself and do her ADLs. Labs were obtained and showed an elevated white blood cell count 21.4, patient's sodium was low at 129, creatinine was elevated at 4.53 and BUN was 94. Patient was felt to have sepsis by the emergency room physician, I did not agree with this diagnosis. Patient was admitted for acute kidney injury secondary to dehydration and possible gastroenteritis. Patient was given IV fluids, she became anuric and was seen by nephrology, her creatinine elevated and she underwent hemodialysis. Patient was seen by PT and OT, she was seen by wound care due to chronic lymphedema in her lower extremities with small excoriated areas. Patient did not require intensive treatment for these areas and her legs were washed with soap and water and Adaptic was applied to the open areas. Patient gradually began producing urine, creatinine dropped, patient had a tunneled dialysis catheter placed and this was removed prior to her discharge from the hospital. Initially it was felt that the patient would require temporary placement in a residential facility, patient's insurance denied the request however and the patient was able to walk with minimal assistance and was felt to be stable for discharge home. On 03/14/2019, patient was seen and examined: On examination she appeared in good health and spirits. Vital signs as documented. Skin warm and dry and without overt rashes. Neck without JVD. Lungs clear. Heart exam notable for regular rhythm, normal sounds and absence of murmurs, rubs or gallops. Abdomen unremarkable and without evidence of organomegaly, masses, or abdominal aortic enlargement. Extremities-chronic lymphedematous changes are noted over both lower legs. Neuro: Cranial nerves II through XII are grossly intact, no focal motor deficits were noted, sensation to light touch and pinprick is intact. Psych: Patient is alert and oriented x3, she does not appear anxious or depressed On 03/14/2019, patient was seen and examined felt to be in stable condition for discharge home, she will be scheduled to follow-up with nephrology due to a positive p-ANCA test. - Physical Exam Vital Signs Temp Pulse Resp BP Pulse Ox 97.8 F 163 H 14 114/42 L 97 03/14/19 14:54 03/14/19 15:08 03/14/19 14:54 03/14/19 14:54 03/14/19 14:54 Oxygen Delivery Method Room Air Weight: 113.1 kg Body Mass Index (BMI) 43.1 Intake and Output for Last 24 Hours 03/13/19 03/14/19 03/15/19 23:59 23:59 23:59 Intake Total 740 / 740 120 / 120 Output Total 1400 / 1400 950 / 950 Balance -660 / -660 -830 / -830 Laboratory Tests Past 24 Hrs 03/14/19 12:55 Urine Color Yellow Urine Clarity Clear Urine pH 6.0 Ur Specific [place] 1.010 Urine Protein 15 H Urine Glucose (UA) Normal Urine Ketones Negative Urine Occult Blood 250 H Urine Nitrite Negative Urine Bilirubin Negative Urine Urobilinogen Normal Ur Leukocyte Esterase 25 H Urine RBC 0-5 SEEN Urine WBC 0 SEEN Ur Squamous Epith Cells 0 SEEN Urine Bacteria 1+ Urine Mucus 0 SEEN POC Glucose 03/14/19 11:45 POC Glucose 178 H Discharge Diet: Renal Diet Discharge Activity: Return to Normal Activity Weight Bearing Status: Full weight bearing Additional Dressing/Incision Instructions:: You may remove your neck dressing in 3 days. Leave the Steri-Strips in place for 1 week. Keep the catheter site clean and dry. The dialysis center will assist with dressing changes of the catheter Home Medications: Medications to take at Discharge Folic Acid 1 mg PO DAILY@0800 03/25/17 Metoprolol Succinate [Toprol Xl] 100 mg PO DAILY 01/21/17 Rosuvastatin Calcium [Crestor] 40 mg PO MOWEFR 01/21/17 Acetaminophen [Tylenol 8 Hour] 650 mg PO PRN PRN 03/05/19 Alendronate Sodium 70 mg PO FAUSTIN 03/05/19 Calcium Carb/Vitamin D [Caltrate-600 With Vit D Tab] 1 tab PO BID 03/05/19 Cholecalciferol (VIT D3) [Vitamin D3] 3,000 unit PO DAILY 03/05/19 Cholecalciferol (Vitamin D3) [Vitamin D3] 5,000 unit PO DAILY 03/05/19 Dulaglutide [Trulicity] 1 mg SQ FR 03/05/19 Insulin Degludec [Tresiba Flextouch U-200] 32 units SQ DAILY 03/05/19 Metformin(XR) [Glucophage Xr] 1,000 mg PO BID 03/05/19 Acetaminophen [Tylenol Tablet] 650 mg PO Q6H PRN PRN tablet 03/14/19 Ferrous Sulfate 325 mg PO BIDCM #60 tab 03/14/19 Following Prescrptions Were Given to Patient: Ferrous Sulfate 325 mg PO BIDCM #60 tab Primary Care Physician: Elena Mims DO [Primary Care Provider] - Please follow up with your Primary Care Physician in: in 2 weeks Please Follow Up With: Elena Mims DO When: call for appointment Disposition: Home Minutes spent on discharge:: 35 Patient Condition:: Stable Medical Necessity - Tobacco Use Smoking Status: Never smoker Tobacco Use: Non-smoker Meaningful Use Info Meaningful Use Diagnoses (Choose all that apply): None applicable Code Visit Inpatient E&M: 31203 Disch Hosp
--- NOTE | 2019-03-15 09:55 | DS.PCM_ITS ---
Discharge Date and Diagnosis Date of Admission: 03/05/19 Date of Discharge: 03/14/19 - Primary Discharge Diagnosis #1 acute kidney injury #2 Hemoccult-positive stools-etiology unclear #3 bilateral lower extremity lymphedema #4 hypertension #5 type 2 diabetes #6 hyperlipidemia #7 generalized debility-secondary to multiple medical problems #8 iron deficiency anemia-secondary to unexplained GI blood loss - Secondary Discharge Diagnosis Chronic Problems Microscopic colitis (Chronic) Lymphedema (Chronic) Tinea unguium (Chronic) Toe pain, right (Chronic) Toe pain, left (Chronic) Osteoarthritis (Chronic) Type II diabetes mellitus (Chronic) Dyslipidemia (Chronic) Essential hypertension (Chronic) History of gastroesophageal reflux (GERD) (Chronic) History of irritable colon (Chronic) Morbid obesity (Chronic) Hospital Course and Treatment Consultations 03/05/19 16:31 Consult: Onc/Wound/cyanide pot hardener Routine Comment: Operations: None Procedures: Dialysis, - - Insertion of tunneled dialysis catheter Summary of Care Provided: The patient is a 73 year old F who was seen in the emergency room at [facility] with a chief complaint of severe weakness. Patient was living alone and was unable to take care of herself and do her ADLs. Labs were obtained and showed an elevated white blood cell count 21.4, patient's sodium was low at 129, creatinine was elevated at 4.53 and BUN was 94. Patient was felt to have sepsis by the emergency room physician, I did not agree with this diagnosis. Patient was admitted for acute kidney injury secondary to dehydration and possible gastroenteritis. Patient was given IV fluids, she became anuric and was seen by nephrology, her creatinine elevated and she underwent hemodialysis. Patient was seen by PT and OT, she was seen by wound care due to chronic lymphedema in her lower extremities with small excoriated areas. Patient did not require intensive tr eatment for these areas and her legs were washed with soap and water and Adaptic was applied to the open areas. Patient gradually began producing urine, creatinine dropped, patient had a tunneled dialysis catheter placed and this was removed prior to her discharge from the hospital. Initially it was felt that the patient would require temporary placement in a [facility] facility, patient's insurance denied the request however and the patient was able to walk with minimal assistance and was felt to be stable for discharge home. On 03/14/2019, patient was seen and examined: On examination she appeared in good health and spirits. Vital signs as documented. Skin warm and dry and without overt rashes. Neck without JVD. Lungs clear. Heart exam notable for regular rhythm, normal sounds and absence of murmurs, rubs or gallops. Abdomen unremarkable and without evidence of organomegaly, masses, or abdominal aortic enlargement. Extremities-chronic lymphedematous changes are noted over both lower legs. Neuro: Cranial nerves II through XII are grossly intact, no focal motor deficits were noted, sensation to light touch and pinprick is intact. Psych: Patient is alert and oriented x3, she does not appear anxious or depressed On 03/14/2019, patient was seen and examined felt to be in stable condition for discharge home, she will be scheduled to follow-up with nephrology due to a posi tive p-ANCA test. - Physical Exam Vital Signs Temp Pulse Resp BP Pulse Ox 97.8 F 163 H 14 114/42 L 97 03/14/19 14:54 03/14/19 15:08 03/14/19 14:54 03/14/19 14:54 03/14/19 14:54 Oxygen Delivery Method Room Air Weight: 113.1 kg Body Mass Index (BMI) 43.1 Intake and Output for Last 24 Hours 03/13/19 03/14/19 03/15/19 23:59 23:59 23:59 Intake Total 740 / 740 120 / 120 Output Total 1400 / 1400 950 / 950 Balance -660 / -660 -830 / -830 Laboratory Tests Past 24 Hrs 03/14/19 12:55 Urine Color Yellow Urine Clarity Clear Urine pH 6.0 Ur Specific [place] 1.010 Urine Protein 15 H Urine Glucose (UA) Normal Urine Ketones Negative Urine Occult Blood 250 H Urine Nitrite Negative Urine Bilirubin Negative Urine Urobilinogen Normal Ur Leukocyte Esterase 25 H Urine RBC 0-5 SEEN Urine WBC 0 SEEN Ur Squamous Epith Cells 0 SEEN Urine Bacteria 1+ Urine Mucus 0 SEEN POC Glucose 03/14/19 11:45 POC Glucose 178 H Discharge Diet: Renal Diet Discharge Activity: Return to Normal Activity Weight Bearing Status: Full weight bearing Additional Dressing/Incision Instructions:: You may remove your neck dressing in 3 days. Leave the Steri-Strips in place for 1 week. Keep the catheter site clean and dry. The dialysis center will assist with dressing changes of the catheter Home Medications: Medications to take at Discharge Folic Acid 1 mg PO DAILY@0800 01/21/17 Metoprolol Succinate [Toprol Xl] 100 mg PO DAILY 01/21/17 Rosuvastatin Calcium [Crestor] 40 mg PO MOWEFR 01/21/17 Acetaminophen [Tylenol 8 Hour] 650 mg PO PRN PRN 03/05/19 Alendronate Sodium 70 mg PO FAUSTIN 03/05/19 Calcium Carb/Vitamin D [Caltrate-600 With Vit D Tab] 1 tab PO BID 03/05/19 Cholecalciferol (VIT D3) [Vitamin D3] 3,000 unit PO DAILY 03/05/19 Cholecalciferol (Vitamin D3) [Vitamin D3] 5,000 unit PO DAILY 03/05/19 Dulaglutide [Trulicity] 1 mg SQ FR 03/05/19 Insulin Degludec [Tresiba Flextouch U-200] 32 units SQ DAILY 03/05/19 Metformin(XR) [Glucophage Xr] 1,000 mg PO BID 03/05/19 Acetaminophen [Tylenol Tablet] 650 mg PO Q6H PRN PRN tablet 03/14/19 Ferrous Sulfate 325 mg PO BIDCM #60 tab 03/14/19 Following Prescrptions Were Given to Patient: Ferrous Sulfate 325 mg PO BIDCM #60 tab Primary Care Physician: Elena Mims DO [Primary Care Provider] - Please follow up with your Primary Care Physician in: in 2 weeks Please Follow Up With: Elena Mims DO When: call for appointment Disposition: Home Minutes spent on discharge:: 35 Patient Condition:: Stable Medical Necessity - Tobacco Use Smoking Status: Never smoker Tobacco Use: Non-smoker Meaningful Use Info Meaningful Use Diagnoses (Choose all that apply): None applicable Code Visit Inpatient E&M: 22075 Disch Hosp
== END 2019-03-14 18:28 | disposition home or self-care (01) | DRG 674 ==
LOC: ED 13:52 → PCU 03-06 06:05
PROVIDERS: Family Medicine; Internal Medicine; Internal Medicine Nephrology; Surgery; Admitting Provider Internal Medicine; Emergency Provider Emergency Medicine; Family Provider Internal Medicine; PCP Internal Medicine; Referring Provider Internal Medicine; Visit Provider Internal Medicine
PROC: 0JH63XZ Insertion of Tunneled Vascular Access Device into Chest Subcutaneous Tissue and Fascia, Percutaneous Approach (ICD-10-PCS; principal; 2019-03-08 10:15)
DX: N17.9 Acute kidney failure, unspecified (principal); E87.1 Hypo-osmolality and hyponatremia; E87.2 Acidosis; K92.2 Gastrointestinal hemorrhage, unspecified; Z68.41 Body mass index [BMI] 40.0-44.9, adult; E66.01 Morbid (severe) obesity due to excess calories; I10 Essential (primary) hypertension; E78.5 Hyperlipidemia, unspecified; E86.0 Dehydration; I89.0 Lymphedema, not elsewhere classified; E11.9 Type 2 diabetes mellitus without complications; E87.6 Hypokalemia; R19.5 Other fecal abnormalities; R53.81 Other malaise; K52.839 Microscopic colitis, unspecified; B35.1 Tinea unguium; M19.90 Unspecified osteoarthritis, unspecified site; Z79.4 Long term (current) use of insulin; D50.0 Iron deficiency anemia secondary to blood loss (chronic)
CPT/HCPCS: 36415; 71045; 76000; 76770; 80048; 81001; 82274; 82570; 82962; 83036; 83520; 83540; 83550; 83605; 83630; 83735; 84300; 85014; 85018; 85025; 85610; 85730; 86160; 86225; 86256; 86704; 86706; 87086; 87340; 87493; 87506; 90937; 93005; 97110; 97162; 97166; 97530; 97535; 97802; 99285; J1756; J7030; J7040; J7120; A4216; C1750; G0257; J2405

== ENCOUNTER → 2019-04-03 15:36 | Outpatient (CLI) | payer MEDICARE, SELFPAY ==
[2019-03-08 09:52] VITALS: BMI 43.1
[2019-04-03 17:51] LABS: Albumin, Serum 2.5 g/dL (3.2-5.0); BUN 12 mg/dL (7-18); BUN/Creat Ratio 9.4 RATIO (10-20); Calcium,Total 9.1 mg/dL (8.5-10.1); Chloride 106 mmol/L (98-107); Creatinine, Serum 1.28 mg/dL (0.55-1.02); EST Glomerular Filtration Rate 44 mL/min (>60); Est Glom Filt Rate - Afr Amer 53 mL/min (>60); Glucose 138 mg/dL (74-106); Phosphorus 1.4 mg/dL (2.5-4.9); Potassium 3.2 mmol/L (3.5-5.1); Sodium Level 143 mmol/L (136-145)
== END ==
PROVIDERS: Family Provider Internal Medicine; PCP Internal Medicine; Referring Provider Internal Medicine Nephrology; Visit Provider Internal Medicine Nephrology
DX: N17.9 Acute kidney failure, unspecified (principal)
CPT/HCPCS: 36415; 80069

== ENCOUNTER → 2019-04-19 16:01 | Outpatient (CLI) | payer MEDICARE, SELFPAY ==
[2019-03-08 09:52] VITALS: BMI 43.1
[2019-04-19 16:23] LABS: Absolute Lymphocyte Count 0.97 X10^3/ul (0.83-4.51); Absolute Neutrophil Count 8.6 X10^3/uL (2.0-7.7); Basophil# 0.02 X10^3/uL; Basophil% 0.2 % (0-1); Eosinophil# 1.01 X10^3/uL; Eosinophils% 8.5 % (0-5); Hematocrit 31.5 % (37-47); Hemoglobin 9.5 g/dl (12.0-15.0); Lymphocyte # 0.97 X10^3/ul (4.0); Lymphocyte % 8.2 % (19-41); Mean Corp Hgb Conc 30.2 g/gl (32-36); Mean Corpuscular Hgb 24.7 pg (27.0-32.0); Mean Corpuscular Volume 81.8 fL (81-99); Mean Platelet Vol. 9.8 fl (6.2-12.0); Monocyte# 1.22 X10^3/uL; Monocyte% 10.3 % (0-10); Neutrophil # 8.59 X10^3/uL (2.7-7.7); Neutrophil % 72.4 % (47-70); Platelet Count 357 K/mm3 (150-450); RBC Distribution Width CV 18.8 % (11.6-14.6); RBC Distribution Width SD 55.5 fl (35.1-43.9); Red Blood Count 3.85 M/mm3 (4.2-5.4); White Blood Count 11.9 K/mm3 (4.4-11.0)
[2019-04-19 16:29] LABS: POSITIVE COUNT NO; POSITIVE DIFFERENTIAL NO; POSITIVE MORPHOLOGY NO
[2019-04-19 16:33] LABS: Albumin, Serum 2.5 g/dL (3.2-5.0); BUN 11 mg/dL (7-18); BUN/Creat Ratio 8.9 RATIO (10-20); Calcium,Total 8.3 mg/dL (8.5-10.1); Chloride 105 mmol/L (98-107); Creatinine, Serum 1.23 mg/dL (0.55-1.02); EST Glomerular Filtration Rate 46 mL/min (>60); Est Glom Filt Rate - Afr Amer 55 mL/min (>60); Glucose 92 mg/dL (74-106); Phosphorus 2.1 mg/dL (2.5-4.9); Potassium 2.9 mmol/L (3.5-5.1); Sodium Level 146 mmol/L (136-145); Thyroid Stim Hormone (TSH) 1.55 uIU/mL (0.358-3.74)
== END ==
PROVIDERS: Family Provider Internal Medicine; PCP Internal Medicine; Referring Provider Nurse Practitioner; Visit Provider Nurse Practitioner
DX: E11.29 Type 2 diabetes mellitus with other diabetic kidney complication (principal); E11.65 Type 2 diabetes mellitus with hyperglycemia
CPT/HCPCS: 80069; 84443; 85025

== ENCOUNTER → 2019-04-25 09:55 | Outpatient (CLI) | payer MEDICARE, SELFPAY ==
[2019-03-08 09:52] VITALS: BMI 43.1
[2019-04-25 10:23] LABS: Albumin, Serum 2.7 g/dL (3.2-5.0); BUN 11 mg/dL (7-18); BUN/Creat Ratio 9.1 RATIO (10-20); Calcium,Total 9.5 mg/dL (8.5-10.1); Chloride 103 mmol/L (98-107); Creatinine, Serum 1.21 mg/dL (0.55-1.02); EST Glomerular Filtration Rate 46 mL/min (>60); Est Glom Filt Rate - Afr Amer 56 mL/min (>60); Glucose 104 mg/dL (74-106); Phosphorus 2.3 mg/dL (2.5-4.9); Potassium 3.5 mmol/L (3.5-5.1); Sodium Level 141 mmol/L (136-145)
== END ==
PROVIDERS: Family Provider Internal Medicine; PCP Internal Medicine; Referring Provider Nurse Practitioner; Visit Provider Nurse Practitioner
DX: E87.6 Hypokalemia (principal)
CPT/HCPCS: 80069

== ENCOUNTER → 2019-05-15 12:20 | Outpatient (CLI) | payer MEDICARE, SELFPAY ==
[2019-03-08 09:52] VITALS: BMI 43.1
[2019-05-15 14:14] LABS: Color, Urine Yellow (Yellow); Glucose, Dipstick Normal (Normal); Ketone-Dipstick Negative (Negative); Leukocyte Esterase-Dipstick 100 /ul (Negative); Nitrite-Dipstick Negative (Negative); Occult Blood-Urine Negative /ul (Negative); Protein-Dipstick Negative (Negative); Urine Bilirubin Dipstick Negative (Negative); Urine Clarity Clear (Clear); Urine Urobilinogen Normal (Normal)
[2019-05-15 14:15] LABS: Hematocrit 35.8 % (37-47); Hemoglobin 10.5 g/dL (12.0-15.0); Mean Corp Hgb Conc 29.3 g/dL (32-36); Mean Corpuscular Hgb 25.2 pg (27.0-32.0); Mean Corpuscular Volume 86.1 fL (81-99); Mean Platelet Vol. 9.4 fl (6.2-12.0); Platelet Count 428 K/mm3 (150-450); RBC Distribution Width CV 15.7 % (11.6-14.6); RBC Distribution Width SD 49.4 fl (35.1-43.9); Red Blood Count 4.16 M/mm3 (4.2-5.4); White Blood Count 12.4 K/mm3 (4.4-11.0)
[2019-05-15 14:33] LABS: BUN 17 mg/dL (7-18); BUN/Creat Ratio 14.9 RATIO (10-20); Calcium,Total 9.4 mg/dL (8.5-10.1); Chloride 103 mmol/L (98-107); Creatinine, Serum 1.14 mg/dL (0.55-1.02); EST Glomerular Filtration Rate 50 mL/min (>60); Est Glom Filt Rate - Afr Amer 60 mL/min (>60); Glucose 92 mg/dL (74-106); Phosphorus 4.3 mg/dL (2.5-4.9); Potassium 4.3 mmol/L (3.5-5.1); Sodium Level 140 mmol/L (136-145)
[2019-05-15 14:35] LABS: Vitamin D,25 Hydroxy 46.3 ng/mL (29.95-100.01)
[2019-05-15 14:39] LABS: Microalbumin,Random Urine 7.1 mg/L (NO RANGE EST.); Microalbumin:Creatinine Ratio 15.4 mg/g CRE (<30 mg/g CRE); Protein, Urine (Random) 8.8 mg/dL (<11.9); Protein:Creat Ratio 190 mg/g CRE (0-200)
== END ==
PROVIDERS: Family Provider Internal Medicine; PCP Internal Medicine
DX: N18.3 Chronic kidney disease, stage 3 (moderate) (principal)
CPT/HCPCS: 36415; 80069; 81002; 82043; 82306; 82570; 83970; 84156; 85027

== ENCOUNTER → 2020-05-19 08:16 | Outpatient (CLI) | payer MEDICARE, SELFPAY ==
[2019-03-08 09:52] VITALS: BMI 43.1
--- NOTE | 2020-05-19 08:18 | BI_ITS ---
MAMMOGRAPHY - BILATERAL SCREENING 3-D TOMOSYNTHESIS REASON FOR EXAM: Female, 74 years old. Routine screening PERTINENT HISTORY: FAM HX 1ST COUSIN AGE 61 -- NO SX. TECHNIQUE: 2-D mammograms and 3-D Tomosynthesis of the breast (s) were performed. CAD was performed. COMPARISON: 03/08/2018 FINDINGS: The breast composition is almost entirely fat. Scattered benign calcifications are seen. No dense spiculated masses or suspicious microcalcifications are identified. No architectural distortion is identified. There is no skin thickening or retraction. There has been no significant change since the prior study. BI/SCREEN MAMM (CAD) W/JEFFREY BILAT IMPRESSION: No mammographic signs of malignancy. Routine yearly mammograms recommended. ASSESSMENT CATEGORY: BIRADS Category 1: Negative. A letter regarding these results will be sent to the patient by the facility within 30 days. FOLLOW UP RECOMMENDATION: Yearly follow up mammogram recommended. (A) Approximately 10% of breast cancers are not detected by mammography. A normal mammogram should not delay biopsy of a clinically suspicious abnormality. Electronically Signed: Leonid Peralta MD at 9:20 EDT , Service support ,
--- NOTE | 2020-05-19 08:36 | BD_ITS ---
STUDY: DUAL ENERGY X-RAY ABSORPTIOMETRY / DXA REASON FOR EXAM: Female, 74 years old. 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 COMPARISON: Comparison is made with prior study dated 03-08-18. FINDINGS: Right Forearm: g/cm2 (0.942) / T-score (0.6) / Z-score (2.) Left Forearm: g/cm2 (0.932) / T-score (0.5) / Z-score (2.6) BD/Dexa Bone Density/Append Skel IMPRESSION: The patient is considered normal as outlined below according to World [employer] Organization (WHO) criteria with a low fracture risk. There has been worsening of bone density since the previous examination. Reference Information: The T-score is the number of standard deviations above or below the standard which is normal for young adults at their peak bone mineral density. The World Health Organization (WHO) interprets the T-scores as follows: Above -1 Normal bone density Between -1 and -2.5 Osteopenia Equal to / or below -2.5 Osteoporosis As a practical clinical guideline, osteopenia may be graded as follows: Mild -1 through -1.5 Moderate -1.6 through -2.0 Severe -2.1 through -2.4 The Z-score is the number of standard deviations above or below age-matched controls. A Z-score of less than -1.5 would be considered abnormal. References: 1. NIH Osteoporosis and Related Bone Diseases http://www.osteo.org 2. International Society for Clinical Densitometry http://www.iscd.org 3. National Osteoporosis Foundation http://www.nof.org Electronically Signed: Bo Chan, at 9:47 EDT , Service support ,
== END ==
PROVIDERS: PCP Internal Medicine; Referring Provider Internal Medicine; Visit Provider Internal Medicine
DX: Z12.31 Encounter for screening mammogram for malignant neoplasm of breast (principal); Z78.0 Asymptomatic menopausal state
CPT/HCPCS: 77063; 77067; 77081

== ENCOUNTER → 2020-06-03 16:44 | Outpatient (CLI) | payer MEDICARE, SELFPAY ==
[2019-03-08 09:52] VITALS: BMI 43.1
[2020-06-03 17:37] LABS: Hematocrit 32.7 % (37-47); Hemoglobin 9.7 g/dL (12.0-15.0); Mean Corp Hgb Conc 29.7 g/dL (32-36); Mean Corpuscular Hgb 23.9 pg (27.0-32.0); Mean Corpuscular Volume 80.5 fL (81-99); Mean Platelet Vol. 9.4 fl (6.2-12.0); Platelet Count 394 K/mm3 (150-450); RBC Distribution Width CV 15.1 % (11.6-14.6); RBC Distribution Width SD 44.2 fl (35.1-43.9); Red Blood Count 4.06 M/mm3 (4.2-5.4); White Blood Count 9.4 K/mm3 (4.4-11.0)
[2020-06-03 18:03] LABS: Albumin, Serum 2.9 g/dL (3.2-5.0); BUN 17 mg/dL (7-18); BUN/Creat Ratio 12.2 RATIO (10-20); Calcium,Total 8.9 mg/dL (8.5-10.1); Chloride 105 mmol/L (98-107); Creatinine, Serum 1.39 mg/dL (0.55-1.02); EST Glomerular Filtration Rate 39 mL/min (>60); Est Glom Filt Rate - Afr Amer 48 mL/min (>60); Glucose 119 mg/dL (74-106); Phosphorus 3.8 mg/dL (2.5-4.9); Potassium 4.5 mmol/L (3.5-5.1); Sodium Level 140 mmol/L (136-145)
[2020-06-03 18:06] LABS: Vitamin D,25 Hydroxy 63.2 ng/mL
[2020-06-04 08:40] LABS: PTHIN 29.8 pg/mL (18.4-80.1)
== END ==
PROVIDERS: PCP Internal Medicine; Referring Provider Internal Medicine Nephrology; Visit Provider Internal Medicine Nephrology
DX: N18.3 Chronic kidney disease, stage 3 (moderate) (principal)
CPT/HCPCS: 36415; 80069; 82306; 83970; 85027

== ENCOUNTER → 2020-06-04 | Outpatient (CLI) | payer MEDICARE, SELFPAY ==
[2019-03-08 09:52] VITALS: BMI 43.1
[2020-06-04 12:45] LABS: Protein, Urine (Random) 11.3 mg/dL (<11.9); Protein:Creat Ratio 140 mg/g CRE (0-200)
== END | disposition home or self-care (01) ==
LOC: LABSPEC 10:17
PROVIDERS: PCP Internal Medicine; Referring Provider Internal Medicine Nephrology; Visit Provider Internal Medicine Nephrology
DX: N18.3 Chronic kidney disease, stage 3 (moderate) (principal)
CPT/HCPCS: 82570; 84156

== ENCOUNTER → 2021-01-07 10:46 | Outpatient (CLI) | payer MEDICARE, SELFPAY ==
[2019-03-08 09:52] VITALS: BMI 43.1
[2021-01-07 12:08] LABS: Hematocrit 32.7 % (37-47); Hemoglobin 9.1 g/dL (12.0-15.0); Mean Corp Hgb Conc 27.8 g/dL (32-36); Mean Corpuscular Hgb 22.8 pg (27.0-32.0); Mean Platelet Vol. 9.6 fl (6.2-12.0); Platelet Count 387 K/mm3 (150-450); RBC Distribution Width CV 15.6 % (11.6-14.6); RBC Distribution Width SD 47.2 fl (35.1-43.9); Red Blood Count 3.99 M/mm3 (4.2-5.4); White Blood Count 10.1 K/mm3 (4.4-11.0)
[2021-01-07 12:21] LABS: PTHIN 49.5 pg/mL (18.4-80.1)
[2021-01-07 12:32] LABS: Vitamin D,25 Hydroxy 55.4 ng/mL
[2021-01-07 12:33] LABS: Albumin, Serum 2.8 g/dL (3.2-5.0); BUN 14 mg/dL (7-18); BUN/Creat Ratio 10.6 RATIO (10-20); Calcium,Total 8.8 mg/dL (8.5-10.1); Chloride 103 mmol/L (98-107); Creatinine, Serum 1.32 mg/dL (0.55-1.02); EST Glomerular Filtration Rate 42 mL/min (>60); Est Glom Filt Rate - Afr Amer 51 mL/min (>60); Glucose 78 mg/dL (74-106); Phosphorus 3.3 mg/dL (2.5-4.9); Potassium 3.9 mmol/L (3.5-5.1); Sodium Level 138 mmol/L (136-145)
== END ==
PROVIDERS: PCP Internal Medicine; Referring Provider Internal Medicine Nephrology; Visit Provider Internal Medicine Nephrology
DX: N18.30 Chronic kidney disease, stage 3 unspecified (principal)
CPT/HCPCS: 36415; 80069; 82306; 83970; 85027

== ENCOUNTER → 2021-01-11 12:10 | Outpatient (CLI) | payer MEDICARE, SELFPAY ==
[2019-03-08 09:52] VITALS: BMI 43.1
[2021-01-11 15:25] LABS: Protein, Urine (Random) 9.2 mg/dL (<11.9); Protein:Creat Ratio 239 mg/g CRE (0-200)
== END ==
PROVIDERS: PCP Internal Medicine; Referring Provider Internal Medicine Nephrology; Visit Provider Internal Medicine Nephrology
DX: N18.30 Chronic kidney disease, stage 3 unspecified (principal)
CPT/HCPCS: 82570; 84156

== ENCOUNTER 2021-03-20 04:24 | Observation (INO) | payer MEDICARE, SELFPAY ==
[2019-03-08 09:52] VITALS: BMI 43.1
[2021-03-20] VITALS (9 sets, daily range): BP systolic 123–182; BP diastolic 50–86; PULSE 16–86; RESP 16–18; TEMP 36–36.8; O2SAT 93–98; BMI 38.0; BMI 43.9
--- NOTE | 2021-03-20 05:01 | EDS_ITS ---
HPI HPI - Fall History of Present Illness Chief Complaint: Weakness Narrative Narrative: 75-year-old female patient Dr. Morris. Patient reports that at 2:00 this morning she stood up from a recliner and fell. She is unsure why she fell. States that she has a history of bilateral hip and knee replacements. Because of this she was unable to get back up. She called EMS and they came out and helped her back up. Patient reports that at again at 4 AM she got up from her recliner and fell. She was unable to get back up again. Patient denies any blow to the head with either of these. No loss of consciousness. She is not on anticoagulants. She denies any neck, back, shoulder, wrist, or hip pain. Patient's review of systems is negative. She states that she began lisinopril 2 weeks ago. She denies any other recent medication changes. She does live by herself. [facility] Medical History Anemia Diabetes Hyperlipidemia Hypertension Osteoporosis Home Medications folic acid 1 mg PO DAILY@0800 01/21/17 [History Last Taken 03/04/19] metoprolol succinate [Toprol XL] 100 mg PO DAILY 01/21/17 [History Last Taken 03/04/19] rosuvastatin [Crestor] 40 mg PO MOWEFR 01/21/17 [History Last Taken 03/04/19] Tresiba FlexTouch U-200 30 units SQ DAILY 03/05/19 [History Last Taken 03/05/19] Trulicity 1 mg SQ FR 03/05/19 [History Last Taken 03/01/19] acetaminophen [Tylenol 8 Hour] 650 mg PO PRN PRN 03/05/19 [History Last Taken 03/02/19] alendronate 70 mg PO FAUSTIN 03/05/19 [History Last Taken 03/03/19] calcium carbonate-vitamin D3 [Caltrate with Vitamin D3] 1 tab PO BID 03/05/19 [History Last Taken 03/04/19] cholecalciferol (vitamin D3) 5,000 unit PO DAILY 03/05/19 [History Last Taken 03/04/19] cholecalciferol (vitamin D3) [Vitamin D3] 3,000 unit PO DAILY 03/05/19 [History Last Taken 03/04/19] metformin 1,000 mg PO BID 03/05/19 [History Last Taken 03/04/19] acetaminophen [Tylenol] 650 mg PO Q6H PRN PRN tablet 03/14/19 [Rx Last Taken Unknown] ferrous sulfate 325 mg PO DAILY 03/20/21 [History Last Taken Unknown] lisinopril 10 mg DAILY 03/20/21 [History Last Taken Unknown] Allergy/AdvReac Type Severity Reaction Status Date / Time chlorhexidine Allergy Unknown Verified 03/20/21 04:43 Iodinated Contrast Media Allergy Other Verified 03/20/21 04:43 [CONTRASTS] iodine Allergy Unknown Verified 03/20/21 04:43 Social History Smoking Status: Never smoker ROS ROS ED Constitutional Constitutional ED: Denies chills, fever(s) or sweats Eyes Eyes: Denies change in vision ENT ENT ED: Denies sore throat Cardiovascular Cardiovascular: Denies chest pain Respiratory/Chest Respiratory/Chest: Denies cough, dyspnea or dyspnea on exertion Gastrointestinal Gastrointestinal: Denies abdominal pain, diarrhea, melena, nausea or vomiting Genitourinary Genitourinary ED: Denies dysuria or urinary frequency Musculoskeletal Musculoskeletal: Denies myalgias Integumentary Denies rash Neurologic Neurologic: Denies headache(s), paresthesias or weakness EXAM Physical Exam Const Vital Signs: 03/20/21 04:26 03/20/21 04:45 03/20/21 05:11 Temperature 97.8 F Temperature Source Temporal Pulse Rate 16 L Pulse Rate [Lying] 80 Pulse Rate [Sitting] 85 Pulse Rate [Standing] 82 Respiratory Rate 16 Respiratory Effort Normal Respiratory Depth Normal Blood Pressure 151/66 H Blood Pressure [Lying] 169/54 H Blood Pressure [Sitting] 175/86 H Blood Pressure [Standing] 182/84 H Blood Pressure Mean 94 Blood Pressure Mean [Lying] 92 Blood Pressure Mean [Sitting] 115 Blood Pressure Mean [Standing] 116 Pulse Ox 98 Oxygen Delivery Method Nasal Cannula Oxygen Flow Rate (L/min) 2 03/20/21 06:40 Temperature Temperature Source Pulse Rate 86 Pulse Rate [Lying] Pulse Rate [Sitting] Pulse Rate [Standing] Respiratory Rate 16 Respiratory Effort Respiratory Depth Blood Pressure 157/50 H Blood Pressure [Lying] Blood Pressure [Sitting] Blood Pressure [Standing] Blood Pressure Mean 85 Blood Pressure Mean [Lying] Blood Pressure Mean [Sitting] Blood Pressure Mean [Standing] Pulse Ox Oxygen Delivery Method Oxygen Flow Rate (L/min) Positive well nourished and well developed General Appearance ED: well developed HEENT normocephalic and atraumatic Eyes PERRL Neck full ROM, no lymphadenopathy, supple and no JVD Neck Narrative: No vertebral tenderness. Full ROM without difficulty. Cleared by NEXUS criteria. General: Negative for tenderness Chest Wall Chest: Negative for tenderness Resp normal respiratory effort and clear to auscultation bilaterally Effort and Inspection: Negative for respiratory distress Cardio regular rate and regular rhythm; Negative for no murmurs Rate: regular rate Rhythm: regular rhythm Bruits: other Other Details: 2 out of 6 systolic murmur. GI normal to inspection, nondistended, normoactive bowel sounds, soft to palpation, non-tender and non-distended GI Narrative: No pain in RUQ or LUQ specifically. No peritoneal signs. Auscultation: normoactive bowel sounds Palpation: soft Back/Spine Back/Spine Narrative: No vertebral tenderness. Full ROM without difficulty. Extremity normal to inspection and full ROM; Negative for no pedal edema General Extremety ED: Yes edema; Negative for tenderness General Extremity: edema bilateral (3+ pitting edema lower extremities bilaterally. Chronic venous stasis changes of her lower extremities bilaterally. There is erythema on the left that the patient reports has been present for months.) Neuro oriented x3, CN's II-XII intact bilaterally and no sensory deficits noted Sensorium / Orientation: awake and alert Motor Exam: strength 5/5 throughout Psych mental status grossly normal Skin no rashes or lesions noted General Skin Exam: other Chronic venous stasis changes to her lower extremities bilaterally. There is erythema on the left with out warmth. 2+ dorsalis pedis pulse bilaterally. MDM MDM Lab Data Attestation: I reviewed the patient's lab results. Labs: Laboratory Results - last 24 hr 03/20/21 03/20/21 03/20/21 04:56 04:56 05:08 WBC 12.3 H RBC 4.35 Hgb 9.7 L Hct 34.2 L MCV 78.6 L MCH 22.3 L MCHC 28.4 L RDW Std Deviation 46.6 H RDW Coeff of Juan Diego 16.3 H Plt Count 331 MPV 9.1 Immature Gran % (Auto) 0.400 Neut % (Auto) 75.1 H Lymph % (Auto) 7.2 L [place] % (Auto) 15.1 H Eos % (Auto) 2.0 Baso % (Auto) 0.2 Absolute Neuts (auto) 9.2 H Absolute Lymphs (auto) 0.89 Nucleated RBC % 0 Differential Comment SCANNED Diff Path Review May foll Sodium 140 Potassium 3.5 Chloride 103 Carbon Dioxide 32.0 Anion Gap 5 BUN 19 H Creatinine 1.50 H Estim Creat Clear Calc 30.80 Est GFR (MDRD) Af Amer 44 L Est GFR (MDRD) Non-Af 36 L BUN/Creatinine Ratio 12.7 Glucose 121 H Calcium 9.3 Total Bilirubin 1.10 H AST 14 L ALT 12 L Alkaline Phosphatase 79 Total Protein 7.8 Albumin 3.2 Globulin 4.6 H Albumin/Globulin Ratio 0.7 L Urine Color Yellow Urine Clarity Sl. Cloudy Urine pH 5.0 Ur Specific [place] 1.015 Urine Protein 30 H Urine Glucose (UA) Normal Urine Ketones Negative Urine Occult Blood 250 H Urine Nitrite Negative Urine Bilirubin Negative Urine Urobilinogen Normal Ur Leukocyte Esterase Negative Treatment and Re-Evaluation Comments:: Emergency department course: Patient had negative orthostatic vital signs. She is resting comfortably. She refused pain or nausea medications. Nystatin powder was placed to the inguinal region bilaterally. There is no evidence of a cellulitis. Treatment plan: Patient feels well and would like to go home. She is able to stand and ambulate here. Had a prolonged discussion with her that if she continues to have falls that it has only a matter of time until she suffered an injury from this. That she could potentially need to go to assisted living or penitentiary facility. She does understand this, but she reports that she is fine going home at this time. She will be discharged instructions to follow-up with her primary care physician in 2 days for another exam. Return to the emergency department for any worsening symptoms. Disposition: To home in improved and stable condition. This note was generated with [employer] dictation software. It may contain incorrect words, spelling, and punctuation that were not noted in review of the chart prior to signing. Discharge Plan Triage Chief Complaint: Weakness Other Complaint: Fall ED Provider: Luis Boyce Dx/Rx/DC Orders Prescriptions: No Action metoprolol succinate [Toprol XL] 50 MG tablet extended release 24 hr 100 mg PO DAILY RF: 0 folic acid 1 MG tablet 1 mg PO DAILY@0800 RF: 0 rosuvastatin [Crestor] 40 MG tablet 40 mg PO MOWEFR RF: 0 alendronate 70 MG tablet 70 mg PO FAUSTIN RF: 0 metformin 500 MG tablet 1,000 mg PO BID RF: 0 Tresiba FlexTouch U-200 200 UNIT/ML insulin pen 30 units SQ DAILY RF: 0 acetaminophen [Tylenol 8 Hour] 650 MG tablet extended release 650 mg PO PRN PRN (Reason: Pain) RF: 0 cholecalciferol (vitamin D3) 5,000 UNIT capsule 5,000 unit PO DAILY RF: 0 cholecalciferol (vitamin D3) [Vitamin D3] 1,000 UNIT tablet 3,000 unit PO DAILY RF: 0 calcium carbonate-vitamin D3 [Caltrate with Vitamin D3] 1 TAB tablet 1 tab PO BID RF: 0 Trulicity 1.5 MG/0.5 ML pen injector 1 mg SQ FR RF: 0 acetaminophen [Tylenol] 325 MG tablet 650 mg PO Q6H PRN PRN (Reason: Mild Pain (1-3)/Temp > 100.7 F) RF: 0 lisinopril 10 mg tablet 10 mg DAILY RF: 0 ferrous sulfate 325 MG tablet 325 mg PO DAILY RF: 0 Primary Care Provider: Elena Mims
--- NOTE | 2021-03-20 05:10 | NURSING ---
patient has yeast infection in groin and folds of panis and legs. Large amount of lymphedema in this area of her legs. Folds cleaned and dried out. She states she has powder at home but then says it is gold ying. She does not have any nystatin.
[2021-03-20 05:14] LABS: Absolute Lymphocyte Count 0.89 X10^3/uL (0.83-4.51); Absolute Neutrophil Count 9.2 X10^3/uL (2.0-7.7); Basophil# 0.03 X10^3/uL; Basophil% 0.2 % (0-1); Eosinophil# 0.25 X10^3/uL; Hematocrit 34.2 % (37-47); Hemoglobin 9.7 g/dL (12.0-15.0); Lymphocyte # 0.89 X10^3/ul (0.83-4.51); Lymphocyte % 7.2 % (19-41); Mean Corp Hgb Conc 28.4 g/dL (32-36); Mean Corpuscular Hgb 22.3 pg (27.0-32.0); Mean Corpuscular Volume 78.6 fL (81-99); Mean Platelet Vol. 9.1 fl (6.2-12.0); Monocyte# 1.86 X10^3/uL; Monocyte% 15.1 % (0-10); NRBC Flagged by Analyzer 0 % (0-5); Neutrophil # 9.22 X10^3/uL (2.7-7.7); Neutrophil % 75.1 % (47-70); POSITIVE DIFFERENTIAL YES; Platelet Count 331 K/mm3 (150-450); RBC Distribution Width CV 16.3 % (11.6-14.6); RBC Distribution Width SD 46.6 fl (35.1-43.9); Red Blood Count 4.35 M/mm3 (4.2-5.4); White Blood Count 12.3 K/mm3 (4.4-11.0)
[2021-03-20 05:27] LABS: ALB/GLOB Ratio 0.7 RATIO (0.9-2.4); AST(SGOT) 14 U/L (15-37); Alanine Aminotransfer ALT/SGPT 12 U/L (13-56); Albumin, Serum 3.2 g/dL (3.2-5.0); Alkaline Phosphatase 79 U/L (45-117); Anion Gap 5 (5-15); BUN 19 mg/dL (7-18); BUN/Creat Ratio 12.7 RATIO (10-20); Calcium,Total 9.3 mg/dL (8.5-10.1); Chloride 103 mmol/L (98-107); EST Glomerular Filtration Rate 36 mL/min (>60); Est Glom Filt Rate - Afr Amer 44 mL/min (>60); Globulin 4.6 g/dL (2.2-4.2); Glucose 121 mg/dL (74-106); Potassium 3.5 mmol/L (3.5-5.1); Protein, Total 7.8 g/dL (6.4-8.2); Sodium Level 140 mmol/L (136-145)
[2021-03-20 05:29] LABS: Bacteria 0 SEEN /hpf (None Seen); Mucous, Urine 0 SEEN /hpf (<or=2+); Red Blood Cells-Urine 0 SEEN /hpf (0-5); Squamous Epithelial Cells - UA 0 SEEN /hpf (5-10); White Blood Cells 0 SEEN /hpf (0-5)
[2021-03-20 05:31] LABS: Differential Indicated SCAN CRITERIA MET
[2021-03-20 05:40] LABS: Color, Urine Yellow (Yellow); Glucose, Dipstick Normal (Normal); Ketone-Dipstick Negative (Negative); Leukocyte Esterase-Dipstick Negative /ul (Negative); Nitrite-Dipstick Negative (Negative); Occult Blood-Urine 250 /ul (Negative); Protein-Dipstick 30 mg/dl (Negative); Specific Gravity, Urine 1.015 (1.002-1.030); Urine Bilirubin Dipstick Negative (Negative); Urine Clarity Sl. Cloudy (Clear); Urine Urobilinogen Normal (Normal)
--- NOTE | 2021-03-20 05:52 | ED.RN ---
Luanwick catheter placed 0552. [facility] PERSONNEL SPECIALIST
[2021-03-20] MEDS: Nystatin Powder 15gm Bottle 1 APPLIC TOPICAL ×3 (06:20→21:53)
[2021-03-20 06:23] LABS: Differential Comment SCANNED
--- NOTE | 2021-03-20 07:44 | ED.RN ---
Patient refusing to stay after this nurse and doctor Carli discussed need for admit. Patient tried to ambulate and get into taxi to go home and was not able to get into the cab or back out of it. Required two assist to get patient out of the cab again and back to room. She is aware her safety is a problem and she needs to be admitted for her mobility issues. She also has a severe yeast infection to panis, betsy area and thigh folds. She lives alone, while admit, consider home health referral for her. She did state she has a walker at home that she uses to get around while we were getting her around too but she does not have that with her to get home. She is in room, rails up and monitor back on
[2021-03-20] MEDS: Metoprolol(XL)Succ 100 MG Tablet PO (10:57)
[2021-03-20] MEDS: 0.9% Normal Saline 1,000 ML 100 ML IV ×2 (10:57→20:37)
[2021-03-20] MEDS: Ferrous Sulfate 325 MG Tablet PO (10:57)
[2021-03-20] MEDS: Lisinopril 10 MG Tablet PO (10:57)
[2021-03-20] MEDS: metFORMIN (XR) 500 MG Tablet 1000 MG PO ×2 (10:58→17:15)
[2021-03-20] MEDS: 0.9% Saline Lock 10 ML Syringe IV (11:02)
[2021-03-20 13:21] LABS: Bedside Glucose 109 mg/dL (70-110)
--- NOTE | 2021-03-20 14:00 | HP.PCM.HOS_ITS ---
Documented by User: Letha Lowery NP, PRINTER SLOTTER OPERATOR-C 03/20/21 14:16 HPI - General General Date of Admission: 03/20/21 Chief Complaint: Weakness, falls. HPI Narrative AZUL NAVARRETE, is a 75 F who presents to the emergency room due to weakness with 2 falls overnight. Patient states she has had weakness over the past few weeks however has not fallen prior to last night. She states she was unable to get herself up from the floor and called the squad. She denies injury during fall. Denies loss of consciousness. States she fell suddenly and did not have any symptoms prior to falls. Patient states a few days ago she was sitting in her recliner and had difficulty getting herself up from the recliner. She denies recent illness. Denies urinary symptoms. Denies other associated symptoms or complaints. She has a past medical history of type 2 diabetes mellitus, hypertension, hyperlipidemia, bilateral lower extremity lymphedema, morbid obesi ty. [facility] [place] Medical History Anemia Diabetes Hyperlipidemia Hypertension Osteoporosis Home Medications folic acid 1 mg PO DAILY@0800 01/21/17 [History Last Taken 03/04/19] metoprolol succinate [Toprol XL] 100 mg PO DAILY 01/21/17 [History Last Taken 03/04/19] rosuvastatin [Crestor] 40 mg PO MOWEFR 01/21/17 [History Last Taken 03/04/19] Tresiba FlexTouch U-200 30 units SQ DAILY 03/05/19 [History Last Taken 03/05/19] Trulicity 1 mg SQ FR 03/05/19 [History Last Taken 03/01/19] acetaminophen [Tylenol 8 Hour] 650 mg PO PRN PRN 03/05/19 [History Last Taken 03/02/19] alendronate 70 mg PO FAUSTIN 03/05/19 [History Last Taken 03/03/19] calcium carbonate-vitamin D3 [Caltrate with Vitamin D3] 1 tab PO BID 03/05/19 [History Last Taken 03/04/19] cholecalciferol (vitamin D3) 5,000 unit PO DAILY 03/05/19 [History Last Taken 03/04/19] cholecalciferol (vitamin D3) [Vitamin D3] 3,000 unit PO DAILY 03/05/19 [History Last Taken 03/04/19] metformin 1,000 mg PO BID 03/05/19 [History Last Taken 03/04/19] acetaminophen [Tylenol] 650 mg PO Q6H PRN PRN tablet 03/14/19 [Rx Last Taken Unknown] ferrous sulfate 325 mg PO DAILY 03/20/21 [History Last Taken Unknown] lisinopril 10 mg DAILY 03/20/21 [History Last Taken Unknown] Allergy/AdvReac Type Severity Reaction Status Date / Time chlorhexidine Allergy Unknown Verified 03/20/21 04:43 Iodinated Contrast Media Allergy Other Verified 03/20/21 04:43 [CONTRASTS] iodine Allergy Unknown Verified 03/20/21 04:43 other (Maternal family history of rheumatoid arthritis, paternal family history of basal cell carcinoma and hypertension) Surgical History (Updated 03/20/21 @ 14:05 by Letha Lowery NP, PRINTER SLOTTER OPERATOR-C) S/P tonsillectomy Status post total hip replacement, right Social History Smoking Status: Never smoker ROS Constitutional Constitutional: Reports weakness and other Details: falls ; Denies change in weight, chills, fatigue or fever(s) Cardiovascular Cardiovascular: Denies chest pain, edema, lightheadedness, palpitations or syncope Respiratory/Chest Respiratory/Chest: Denies cough, dyspnea, productive cough, shortness of breath at rest, shortness of breath with exertion or wheezing Gastrointestinal Gastrointestinal: Denies abdominal pain, constipation, diarrhea, nausea or vomiting Genitourinary Genitourinary: Denies burning urination, difficulty urinating, dysuria, hematuria, urinary frequency, urinary incontinence or urinary urgency Musculoskeletal Musculoskeletal: Denies back pain, joint pain or muscle weakness Integumentary Integumentary: Reports systems reviewed and no addt'l complaints, except as documented Neurologic Neurologic: Denies abnormal speech, confusion, dizziness, focal weakness, numbness, paresthesias, seizure-like activity or syncope Psychiatric Psychiatric: Denies anxiety or depression Hematologic/Lymphatic Hematologic/Lymphatic: Denies anemia, easy bleeding or easy bruising Allergic/Immunologic Allergic/Immunologic: Denies hives or asthma Vital Signs Vital Signs Vital Signs: 03/20/21 04:26 03/20/21 04:45 03/20/21 05:11 Temperature 97.8 F Temperature Source Temporal Pulse Rate 16 L Pulse Rate [Lying] 80 Pulse Rate [Sitting] 85 Pulse Rate [Standing] 82 Pulse Strength Respiratory Rate 16 Respiratory Effort Normal Respiratory Depth Normal Respiratory Pattern Blood Pressure 151/66 H Blood Pressure [Lying] 169/54 H Blood Pressure [Sitting] 175/86 H Blood Pressure [Standing] 182/84 H Blood Pressure Mean 94 Blood Pressure Mean [Lying] 92 Blood Pressure Mean [Sitting] 115 Blood Pressure Mean [Standing] 116 Pulse Ox 98 Oxygen Delivery Method Nasal Cannula Oxygen Flow Rate (L/min) 2 03/20/21 06:40 03/20/21 07:44 03/20/21 08:44 Temperature 97.8 F Temperature Source Temporal Pulse Rate 86 72 72 Pulse Rate [Lying] Pulse Rate [Sitting] Pulse Rate [Standing] Pulse Strength Respiratory Rate 16 16 16 Respiratory Effort Respiratory Depth Respiratory Pattern Blood Pressure 157/50 H 154/78 H 154/78 H Blood Pressure [Lying] Blood Pressure [Sitting] Blood Pressure [Standing] Blood Pressure Mean 85 103 103 Blood Pressure Mean [Lying] Blood Pressure Mean [Sitting] Blood Pressure Mean [Standing] Pulse Ox 98 98 Oxygen Delivery Method Nasal Cannula Nasal Cannula Oxygen Flow Rate (L/min) 1 03/20/21 09:45 03/20/21 09:47 03/20/21 09:49 Temperature 98.2 F Temperature Source Oral Pulse Rate 73 Pulse Rate [Lying] Pulse Rate [Sitting] Pulse Rate [Standing] Pulse Strength Normal (2+) Respiratory Rate 16 Respiratory Effort Normal Non-Labored Respiratory Depth Normal Respiratory Pattern Normal Blood Pressure 153/66 H Blood Pressure [Lying] Blood Pressure [Sitting] Blood Pressure [Standing] Blood Pressure Mean 95 Blood Pressure Mean [Lying] Blood Pressure Mean [Sitting] Blood Pressure Mean [Standing] Pulse Ox 97 Oxygen Delivery Method Nasal Cannula Nasal Cannula Oxygen Flow Rate (L/min) 2 2 03/20/21 10:57 03/20/21 13:08 Temperature Temperature Source Pulse Rate 73 Pulse Rate [Lying] Pulse Rate [Sitting] Pulse Rate [Standing] Pulse Strength Respiratory Rate Respiratory Effort Respiratory Depth Respiratory Pattern Blood Pressure Blood Pressure [Lying] Blood Pressure [Sitting] Blood Pressure [Standing] Blood Pressure Mean Blood Pressure Mean [Lying] Blood Pressure Mean [Sitting] Blood Pressure Mean [Standing] Pulse Ox Oxygen Delivery Method Oxygen Flow Rate (L/min) 1 Physical Exam Const alert, oriented x3 and no apparent distress Orientation / Consciousness: awake, oriented to person, oriented to place and oriented to time HEENT normocephalic and moist oral mucous membranes Eyes PERRL, EOMs intact bilaterally and conjunctivae normal Neck no lymphadenopathy Resp normal respiratory effort and clear to auscultation bilaterally Cardio regular rate, regular rhythm and no murmurs Peripheral Pulses: pulses 2+ throughout GI normal to inspection, nondistended, normoactive bowel sounds, non-tender and non-distended Extremity normal to inspection Skin no rashes or lesions noted Lesions: no lesions Rashes: no rashes Trauma: no lacerations or abrasions Neuro CN's II-XII intact bilaterally, no focal motor deficits, no sensory deficits noted and deep tendon reflexes 2+ bilaterally Psych mental status grossly normal and affect normal Lab / Micro Data Result Diagrams: 03/20/21 04:56 03/20/21 04:56 Labs: Laboratory Results - last 24 hr 03/20/21 03/20/21 03/20/21 04:56 04:56 05:08 WBC 12.3 H RBC 4.35 Hgb 9.7 L Hct 34.2 L MCV 78.6 L MCH 22.3 L MCHC 28.4 L RDW Std Deviation 46.6 H RDW Coeff of Juan Diego 16.3 H Plt Count 331 MPV 9.1 Immature Gran % (Auto) 0.400 Neut % (Auto) 75.1 H Lymph % (Auto) 7.2 L Bee % (Auto) 15.1 H Eos % (Auto) 2.0 Baso % (Auto) 0.2 Absolute Neuts (auto) 9.2 H Absolute Lymphs (auto) 0.89 Nucleated RBC % 0 Differential Comment SCANNED Diff Path Review May foll Sodium 140 Potassium 3.5 Chloride 103 Carbon Dioxide 32.0 Anion Gap 5 BUN 19 H Creatinine 1.50 H Estim Creat Clear Calc 30.80 Est GFR (MDRD) Af Amer 44 L Est GFR (MDRD) Non-Af 36 L BUN/Creatinine Ratio 12.7 Glucose 121 H Calcium 9.3 Total Bilirubin 1.10 H AST 14 L ALT 12 L Alkaline Phosphatase 79 Total Protein 7.8 Albumin 3.2 Globulin 4.6 H Albumin/Globulin Ratio 0.7 L Urine Color Yellow Urine Clarity Sl. Cloudy Urine pH 5.0 Ur Specific [place] 1.015 Urine Protein 30 H Urine Glucose (UA) Normal Urine Ketones Negative Urine Occult Blood 250 H Urine Nitrite Negative Urine Bilirubin Negative Urine Urobilinogen Normal Ur Leukocyte Esterase Negative Urine RBC 0 SEEN Urine WBC 0 SEEN Ur Squamous Epith Cells 0 SEEN Urine Bacteria 0 SEEN Urine Mucus 0 SEEN POC Glucose 03/20/21 13:15 WBC RBC Hgb Hct MCV MCH MCHC RDW Std Deviation RDW Coeff of Juan Diego Plt Count MPV Immature Gran % (Auto) Neut % (Auto) Lymph % (Auto) Bee % (Auto) Eos % (Auto) Baso % (Auto) Absolute Neuts (auto) Absolute Lymphs (auto) Nucleated RBC % Differential Comment Diff Path Review Sodium Potassium Chloride Carbon Dioxide Anion Gap BUN Creatinine Estim Creat Clear Calc Est GFR (MDRD) Af Amer Est GFR (MDRD) Non-Af BUN/Creatinine Ratio Glucose Calcium Total Bilirubin AST ALT Alkaline Phosphatase Total Protein Albumin Globulin Albumin/Globulin Ratio Urine Color Urine Clarity Urine pH Ur Specific [place] Urine Protein Urine Glucose (UA) Urine Ketones Urine Occult Blood Urine Nitrite Urine Bilirubin Urine Urobilinogen Ur Leukocyte Esterase Urine RBC Urine WBC Ur Squamous Epith Cells Urine Bacteria Urine Mucus POC Glucose 109 Assessment & Plan Assessment/Plan (1) Fall: PLAN: 1. Weakness, debility with fall at home-denies injury/pain related to falls. PT/OT. Obtain UA. Case management consult. Fall precautions. 2. Type 2 diabetes [id number] with sliding scale insulin. 3. Chronic kidney disease stage IIIb-at baseline, trend BMP. 4. Hypertension-stable, continue current regimen. 5. Hyperlipidemia-continue statin. 6. Bilateral lower extremity lymphedema-Fuentes wraps bilateral lower extremities. 7. Morbid obesity- encouraged diet and lifestyle modifications. DVT prophylaxis-heparin subcu This patient was seen by Letha Lowery NP-C under the supervision of Dr. Graham. Documented by User: Dr. Valentino Graham, 03/20/21 14:44 HPI - General General Date of Admission: 03/20/21 [facility] Medical History Anemia Diabetes Hyperlipidemia Hypertension Osteoporosis Home Medications folic acid 1 mg PO DAILY@0800 01/21/17 [History Last Taken 03/04/19] metoprolol succinate [Toprol XL] 100 mg PO DAILY 01/21/17 [History Last Taken 03/04/19] rosuvastatin [Crestor] 40 mg PO MOWEFR 01/21/17 [History Last Taken 03/04/19] Tresiba FlexTouch U-200 30 units SQ DAILY 03/05/19 [History Last Taken 03/05/19] Trulicity 1 mg SQ FR 03/05/19 [History Last Taken 03/01/19] acetaminophen [Tylenol 8 Hour] 650 mg PO PRN PRN 03/05/19 [History Last Taken 03/02/19] alendronate 70 mg PO FAUSTIN 03/05/19 [History Last Taken 03/03/19] calcium carbonate-vitamin D3 [Caltrate with Vitamin D3] 1 tab PO BID 03/05/19 [History Last Taken 03/04/19] cholecalciferol (vitamin D3) 5,000 unit PO DAILY 03/05/19 [History Last Taken 03/04/19] cholecalciferol (vitamin D3) [Vitamin D3] 3,000 unit PO DAILY 03/05/19 [History Last Taken 03/04/19] metformin 1,000 mg PO BID 03/05/19 [History Last Taken 03/04/19] acetaminophen [Tylenol] 650 mg PO Q6H PRN PRN tablet 03/14/19 [Rx Last Taken Unknown] ferrous sulfate 325 mg PO DAILY 03/20/21 [History Last Taken Unknown] lisinopril 10 mg DAILY 03/20/21 [History Last Taken Unknown] Allergy/AdvReac Type Severity Reaction Status Date / Time chlorhexidine Allergy Unknown Verified 03/20/21 04:43 Iodinated Contrast Media Allergy Other Verified 03/20/21 04:43 [CONTRASTS] iodine Allergy Unknown Verified 03/20/21 04:43 Surgical History (Updated 03/20/21 @ 14:05 by Letha Lowery NP, PRINTER SLOTTER OPERATOR-C) S/P tonsillectomy Status post total hip replacement, right Social History Smoking Status: Never smoker Lab / Micro Data Result Diagrams: 03/20/21 04:56 03/20/21 04:56 Addendum Addendum: Patient was seen and examined independently of Letha Lowery, she came to the emergency room today after sustaining 2 falls at home with the inability to get up and ambulate. She complains of generalized weakness. Evaluation in the emergency room did not show a specific reason for her generalized weakness and she was unable to get into a cab for discharge home and so it was felt that she was more appropriate to be placed into observation status and see physical therapy. On examination she appeared in good health and spirits, she does not appear to be in any distress. Vital signs as documented. Skin warm and dry and without overt rashes. Neck without JVD, thyroid appears normal, trachea is midline, neck is supple. Lungs clear, normal air movement was noted. Heart exam notable for regular rhythm, normal sounds and absence of murmurs, rubs or gallops. Abdomen u nremarkable and without evidence of organomegaly, masses, or abdominal aortic enlargement, bowel sounds are present in all 4 quadrants, no abdominal tenderness was noted. Extremities nonedematous, no cyanosis was noted, no clubbing was noted. Neuro: Cranial nerves II through XII are grossly intact, no focal motor deficits were noted, sensation to light touch and pinprick is intact, motor exam 5/5 throughout. Psych: Patient is alert and oriented x3, she does not appear anxious or depressed, she does not appear agitated. I will give the patient IV fluids and reevaluate her tomorrow, I have reviewed Letha Lowery's history and physical including her medical assessment and plan of care and endorse it. Visit Charges OBSV E&M: [id number] Initial observation care L3
--- NOTE | 2021-03-20 16:15 | CASEMGMT ---
RN ASIF PROJECT ENG CM to room to meet with patient for initial transition planning/care coordination assessment. RN ASIF introduced self and role at [facility].? Pt voices understanding and consents to assessment at this time.? Pt resting in bed in no distress at this time.? Pt is A/O at this time and answers all questions appropriately.?? Care providers, pharmacy, and demographics verified/updated at this time. PCP: Dr Mims Specialists: podiatry and dentist Preferred Pharmacy: [facility] Insurance: [email or web address] Prescription Benefit: Yes? Living Will/HPOA:? Has both LW and Healthcare POMarin, who is her nieceLetha LNOK: Niece/POALetha Living Arrangements: Lives alone in apt w/one step to enter. Independent w/ADL's and IADL's. Transportation: Pt states drives self and states no transportation concerns at this time.? DME: States has the following DME:? shower chair, raised toilet seat, quad cane, walker, rollator, functioning glucometer and testing supplies. ?Pt states no need for further DME at this time.? HHC/SNF: No history of either. PT/OT evals have been reviewed. Additional therapy recommended. Pt initially stated she was interested in HHC, but upon further discussion re: requirements of being homebound, pt states she is not homebound. She confirms she did fall @ home x 2 prior to hospitalization, but she does not know why she fell and she does not think it will be difficult to get out of her home and go places once she returns home. Pt states she has had OP therapy @ [facility] in the past and would like OP therapy there again. She was made aware a script for OP therapy would be provided and she can take to a location of her choices. She voices appreciation. Pt wishes to return home and states has no concerns with going home at time of discharge.? CM to follow for any further discharge planning/needs.? Pt voices no further concerns/needs at this time.? Advised pt to ask for CM if any further questions/concerns/needs arise.? Voices understanding. PLAN: ?Home w/OP therapy. Script placed on chart for signature. Nurse to give to pt once signature obtained and pt to take to a location of her choice. Nazanin KELLOGGN RN CM
[2021-03-20 17:21] LABS: Bedside Glucose 152 mg/dL (70-110)
[2021-03-20 18:30] LABS: Mucous, Urine 0 SEEN /hpf (<or=2+); Red Blood Cells-Urine 0 SEEN /hpf (0-5)
[2021-03-20 18:35] LABS: Color, Urine Yellow (Yellow); Glucose, Dipstick Normal (Normal); Ketone-Dipstick Negative (Negative); Leukocyte Esterase-Dipstick 25 /ul (Negative); Nitrite-Dipstick Negative (Negative); Occult Blood-Urine 10 /ul (Negative); Protein-Dipstick Negative (Negative); Specific Gravity, Urine 1.015 (1.002-1.030); Urine Bilirubin Dipstick Negative (Negative); Urine Clarity Clear (Clear); Urine Urobilinogen Normal (Normal)
[2021-03-20 18:45] LABS: Bacteria RARE /hpf (None Seen); Squamous Epithelial Cells - UA 0-5 SEEN /hpf (5-10); White Blood Cells 0-5 SEEN /hpf (0-5)
[2021-03-20] MEDS: Heparin Injection (Vial) 5,000 UNIT/ML VIAL 5000 UNIT SC (21:53)
[2021-03-20 22:05] LABS: Bedside Glucose 115 mg/dL (70-110)
[2021-03-21 04:00] VITALS: BP 157/57; PULSE 56; RESP 18; TEMP 36.7; O2SAT 98
[2021-03-21] MEDS: 0.9% Normal Saline 1,000 ML 100 ML IV (05:42)
[2021-03-21 05:43] LABS: Anion Gap 3 (5-15); BUN 14 mg/dL (7-18); BUN/Creat Ratio 11.7 RATIO (10-20); Calcium,Total 8.2 mg/dL (8.5-10.1); Chloride 106 mmol/L (98-107); EST Glomerular Filtration Rate 47 mL/min (>60); Est Glom Filt Rate - Afr Amer 56 mL/min (>60); Estimated Creatinine Clearance 32.53 ml/min; Glucose 100 mg/dL (74-106); Potassium 3.4 mmol/L (3.5-5.1); Sodium Level 141 mmol/L (136-145)
[2021-03-21 06:40] LABS: Bedside Glucose 99 mg/dL (70-110)
[2021-03-21] MEDS: Folic Acid 1 MG Tablet PO (08:08)
[2021-03-21] MEDS: Ferrous Sulfate 325 MG Tablet PO (08:08)
[2021-03-21 09:12] VITALS: BP 155/65; PULSE 64; RESP 20; TEMP 36.8; O2SAT 94
[2021-03-21] MEDS: metFORMIN (XR) 500 MG Tablet 1000 MG PO (09:14)
[2021-03-21 09:15] VITALS: BP 155/65; PULSE 64
[2021-03-21] MEDS: Heparin Injection (Vial) 5,000 UNIT/ML VIAL 5000 UNIT SC (09:15)
[2021-03-21] MEDS: Lisinopril 10 MG Tablet PO (09:15)
[2021-03-21] MEDS: Metoprolol(XL)Succ 100 MG Tablet PO (09:15)
[2021-03-21] MEDS: Nystatin Powder 15gm Bottle 1 APPLIC TOPICAL (09:16)
--- NOTE | 2021-03-21 10:17 | PCM.DC ---
Discharge Instructions Diet Discharge Diet: 1800 Calorie Control Diet Activity Discharge Activity: Return to Normal Activity Weight Bearing Status: Full weight bearing Follow Up Care Test Results: Test results from this visit will be discussed in further detail at your follow-up appointment, if applicable. Discharge Plan Admission Admit Date/Time: 03/20/21 08:28 Primary Reason for Your Visit: debility Attending Provider: Valentino Graham Primary Care Provider: Elena Mims Instructions Patient Instructions: ED Fall Prevention Discharge Orders/Prescriptions Prescriptions: New nystatin [Nyamyc] 100,000 unit/gram Powder 1 applic topical BID Qty: 1 RF: 0 Continued metoprolol succinate [Toprol XL] 50 MG tablet extended release 24 hr 100 mg PO DAILY RF: 0 folic acid 1 MG tablet 1 mg PO DAILY@0800 RF: 0 rosuvastatin [Crestor] 40 MG tablet 40 mg PO MOWEFR RF: 0 alendronate 70 MG tablet 70 mg PO FAUSTIN RF: 0 metformin 500 MG tablet 1,000 mg PO BID RF: 0 Tresiba FlexTouch U-200 200 UNIT/ML insulin pen 30 units SQ DAILY RF: 0 acetaminophen [Tylenol 8 Hour] 650 MG tablet extended release 650 mg PO PRN PRN (Reason: Pain) RF: 0 cholecalciferol (vitamin D3) 5,000 UNIT capsule 5,000 unit PO DAILY RF: 0 cholecalciferol (vitamin D3) [Vitamin D3] 1,000 UNIT tablet 3,000 unit PO DAILY RF: 0 calcium carbonate-vitamin D3 [Caltrate with Vitamin D3] 1 TAB tablet 1 tab PO BID RF: 0 Trulicity 1.5 MG/0.5 ML pen injector 1 mg SQ FR RF: 0 acetaminophen [Tylenol] 325 MG tablet 650 mg PO Q6H PRN PRN (Reason: Mild Pain (1-3)/Temp > 100.7 F) RF: 0 lisinopril 10 mg tablet 10 mg DAILY RF: 0 ferrous sulfate 325 MG tablet 325 mg PO DAILY RF: 0 Referrals / Follow Up: Elena Mims DO [Primary Care Provider] - Within 1 Week Disposition Disposition (needs filled in before D/C Order can be placed): Home, self care
--- NOTE | 2021-03-21 10:32 | PCM.DC.SUM ---
Documented by User: Letha Lowery ASSET MANAGEMENT COORDINATOR, ASSET MANAGEMENT COORDINATOR-C 03/21/21 10:36 Providers Date of Admission: 03/20/21 Date of Discharge: 03/21/21 Primary Care Physician: Dr. Elena Mims DO Reason For Visit: DEBILITY Diagnosis Discharge Diagnosis (1) Fall: Status: Acute Code(s): W19.XXXA - Unspecified fall, initial encounter Medications at Discharge Home Medications folic acid 1 mg PO DAILY@0800 01/21/17 metoprolol succinate [Toprol XL] 100 mg PO DAILY 01/21/17 rosuvastatin [Crestor] 40 mg PO MOWEFR 01/21/17 Tresiba FlexTouch U-200 30 units SQ DAILY 03/05/19 Trulicity 1 mg SQ FR 03/05/19 acetaminophen [Tylenol 8 Hour] 650 mg PO PRN PRN 03/05/19 alendronate 70 mg PO FAUSTIN 03/05/19 calcium carbonate-vitamin D3 [Caltrate with Vitamin D3] 1 tab PO BID 03/05/19 cholecalciferol (vitamin D3) 5,000 unit PO DAILY 03/05/19 cholecalciferol (vitamin D3) [Vitamin D3] 3,000 unit PO DAILY 03/05/19 metformin 1,000 mg PO BID 03/05/19 acetaminophen [Tylenol] 650 mg PO Q6H PRN PRN tablet 03/14/19 ferrous sulfate 325 mg PO DAILY 03/20/21 lisinopril 10 mg DAILY 03/20/21 nystatin [Nyamyc] 1 applic TOPICAL BID #1 bottle 03/21/21 Hospital Course Operations None Procedures None Summary of Care Provided Minutes Spent on Discharge: 35 Hospital Course: Patient is a 75-year-old female admitted 03/20/2021 due to weakness, fall. 1. Weakness, debility with fall at home-denies injury/pain related to falls. PT/OT. UA unremarkable. Patient declined SNF. Amendable to home PT/OT. Discharge home with further home therapies. Follow-up with PCP in 1 week. 2. Type 2 diabetes mellitus-continue home oral regimen. 3. Chronic kidney disease stage IIIb-at baseline, trend BMP. 4. Hypertension-stable, continue current regimen. 5. Hyperlipidemia-continue statin. 6. Bilateral lower extremity lymphedema-Fuentes wraps bilateral lower extremities. 7. Morbid obesity- encouraged diet and lifestyle modifications. Physical Exam Const alert, oriented x3 and no apparent distress Orientation / Consciousness: awake, oriented to person, oriented to place and oriented to time HEENT normocephalic and moist oral mucous membranes Eyes PERRL, EOMs intact bilaterally and conjunctivae normal Neck no lymphadenopathy Resp normal respiratory effort and clear to auscultation bilaterally Cardio regular rate, regular rhythm and no murmurs Peripheral Pulses: pulses 2+ throughout GI normal to inspection, nondistended, normoactive bowel sounds, non-tender and non-distended Extremity normal to inspection Skin no rashes or lesions noted Lesions: no lesions Rashes: no rashes Trauma: no lacerations or abrasions Neuro CN's II-XII intact bilaterally, no focal motor deficits, no sensory deficits noted and deep tendon reflexes 2+ bilaterally Psych mental status grossly normal and affect normal Patient seen and examined prior to discharge. Physical assessment as noted above. Patient is stable for discharge with follow up recommendations as noted above. This patient was seen by ARABELLA Perkins under the supervision of Dr. Graham. ABG / Lab / Microbiology Data Result Diagrams: 03/20/21 04:56 03/21/21 05:08 Laboratory: Laboratory Results - last 24 hr 03/20/21 03/20/21 03/20/21 13:15 17:14 18:24 Sodium Potassium Chloride Carbon Dioxide Anion Gap BUN Creatinine Estim Creat Clear Calc Est GFR (MDRD) Af Amer Est GFR (MDRD) Non-Af BUN/Creatinine Ratio Glucose Calcium Urine Color Yellow Urine Clarity Clear Urine pH 5.0 Ur Specific [place] 1.015 Urine Protein Negative Urine Glucose (UA) Normal Urine Ketones Negative Urine Occult Blood 10 H Urine Nitrite Negative Urine Bilirubin Negative Urine Urobilinogen Normal Ur Leukocyte Esterase 25 H Urine RBC 0 SEEN Urine WBC 0-5 SEEN Ur Squamous Epith Cells 0-5 SEEN Urine Bacteria RARE Urine Mucus 0 SEEN POC Glucose 109 152 H 03/20/21 03/21/21 03/21/21 21:55 05:08 06:31 Sodium 141 Potassium 3.4 L Chloride 106 Carbon Dioxide 32.0 Anion Gap 3 L BUN 14 Creatinine 1.20 H Estim Creat Clear Calc 32.53 Est GFR (MDRD) Af Amer 56 L Est GFR (MDRD) Non-Af 47 L BUN/Creatinine Ratio 11.7 Glucose 100 Calcium 8.2 L Urine Color Urine Clarity Urine pH Ur Specific [place] Urine Protein Urine Glucose (UA) Urine Ketones Urine Occult Blood Urine Nitrite Urine Bilirubin Urine Urobilinogen Ur Leukocyte Esterase Urine RBC Urine WBC Ur Squamous Epith Cells Urine Bacteria Urine Mucus POC Glucose 115 H 99 D/C Instructions Discharge Diet: 1800 Calorie Control Diet Discharge Activity: Return to Normal Activity Weight Bearing Status: Full weight bearing Meaningful Use Info Meaningful Use Diagnoses (Choose all that apply): None applicable Discharge Plan Admission Admit Date/Time: 03/20/21 08:28 Primary Reason for Your Visit: debility Attending Provider: Valentino Graham Primary Care Provider: Elena Mims Instructions Patient Instructions: ED Fall Prevention Additional Instructions / Restrictions: Patient Problems: Altered Health Status related to Hospitalization Patient Goals: *Optimal Level of Health *Keep Appointments *Medication Compliance *Remain Safe Discharge Orders/Prescriptions Prescriptions: New nystatin [Nyamyc] 100,000 unit/gram Powder 1 applic topical BID Qty: 1 RF: 0 Continued metoprolol succinate [Toprol XL] 50 MG tablet extended release 24 hr 100 mg PO DAILY RF: 0 folic acid 1 MG tablet 1 mg PO DAILY@0800 RF: 0 rosuvastatin [Crestor] 40 MG tablet 40 mg PO MOWEFR RF: 0 alendronate 70 MG tablet 70 mg PO FAUSTIN RF: 0 metformin 500 MG tablet 1,000 mg PO BID RF: 0 Tresiba FlexTouch U-200 200 UNIT/ML insulin pen 30 units SQ DAILY RF: 0 acetaminophen [Tylenol 8 Hour] 650 MG tablet extended release 650 mg PO PRN PRN (Reason: Pain) RF: 0 cholecalciferol (vitamin D3) 5,000 UNIT capsule 5,000 unit PO DAILY RF: 0 cholecalciferol (vitamin D3) [Vitamin D3] 1,000 UNIT tablet 3,000 unit PO DAILY RF: 0 calcium carbonate-vitamin D3 [Caltrate with Vitamin D3] 1 TAB tablet 1 tab PO BID RF: 0 Trulicity 1.5 MG/0.5 ML pen injector 1 mg SQ FR RF: 0 acetaminophen [Tylenol] 325 MG tablet 650 mg PO Q6H PRN PRN (Reason: Mild Pain (1-3)/Temp > 100.7 F) RF: 0 lisinopril 10 mg tablet 10 mg DAILY RF: 0 ferrous sulfate 325 MG tablet 325 mg PO DAILY RF: 0 Referrals / Follow Up: Elena Mims DO [Primary Care Provider] - Within 1 Week Disposition Disposition (needs filled in before D/C Order can be placed): Home, self care Documented by User: Dr. Valentino Graham DO 03/21/21 12:45 Providers Date of Admission: 03/20/21 Reason For Visit: DEBILITY Medications at Discharge Home Medications folic acid 1 mg PO DAILY@0800 01/21/17 metoprolol succinate [Toprol XL] 100 mg PO DAILY 01/21/17 rosuvastatin [Crestor] 40 mg PO MOWEFR 01/21/17 Tresiba FlexTouch U-200 30 units SQ DAILY 03/05/19 Trulicity 1 mg SQ FR 03/05/19 acetaminophen [Tylenol 8 Hour] 650 mg PO PRN PRN 03/05/19 alendronate 70 mg PO FAUSTIN 03/05/19 calcium carbonate-vitamin D3 [Caltrate with Vitamin D3] 1 tab PO BID 03/05/19 cholecalciferol (vitamin D3) 5,000 unit PO DAILY 03/05/19 cholecalciferol (vitamin D3) [Vitamin D3] 3,000 unit PO DAILY 03/05/19 metformin 1,000 mg PO BID 03/05/19 acetaminophen [Tylenol] 650 mg PO Q6H PRN PRN tablet 03/14/19 ferrous sulfate 325 mg PO DAILY 03/20/21 lisinopril 10 mg DAILY 03/20/21 nystatin [Nyamyc] 1 applic TOPICAL BID #1 bottle 03/21/21 ABG / Lab / Microbiology Data Result Diagrams: 03/20/21 04:56 03/21/21 05:08 Discharge Plan Admission Admit Date/Time: 03/20/21 08:28 Primary Reason for Your Visit: debility Attending Provider: Valentino Graham Primary Care Provider: Elena Mims Instructions Patient Instructions: ED Fall Prevention Additional Instructions / Restrictions: Patient Problems: Altered Health Status related to Hospitalization Patient Goals: *Optimal Level of Health *Keep Appointments *Medication Compliance *Remain Safe Discharge Orders/Prescriptions Prescriptions: New nystatin [Nyamyc] 100,000 unit/gram Powder 1 applic topical BID Qty: 1 RF: 0 Continued metoprolol succinate [Toprol XL] 50 MG tablet extended release 24 hr 100 mg PO DAILY RF: 0 folic acid 1 MG tablet 1 mg PO DAILY@0800 RF: 0 rosuvastatin [Crestor] 40 MG tablet 40 mg PO MOWEFR RF: 0 alendronate 70 MG tablet 70 mg PO FAUSTIN RF: 0 metformin 500 MG tablet 1,000 mg PO BID RF: 0 Tresiba FlexTouch U-200 200 UNIT/ML insulin pen 30 units SQ DAILY RF: 0 acetaminophen [Tylenol 8 Hour] 650 MG tablet extended release 650 mg PO PRN PRN (Reason: Pain) RF: 0 cholecalciferol (vitamin D3) 5,000 UNIT capsule 5,000 unit PO DAILY RF: 0 cholecalciferol (vitamin D3) [Vitamin D3] 1,000 UNIT tablet 3,000 unit PO DAILY RF: 0 calcium carbonate-vitamin D3 [Caltrate with Vitamin D3] 1 TAB tablet 1 tab PO BID RF: 0 Trulicity 1.5 MG/0.5 ML pen injector 1 mg SQ FR RF: 0 acetaminophen [Tylenol] 325 MG tablet 650 mg PO Q6H PRN PRN (Reason: Mild Pain (1-3)/Temp > 100.7 F) RF: 0 lisinopril 10 mg tablet 10 mg DAILY RF: 0 ferrous sulfate 325 MG tablet 325 mg PO DAILY RF: 0 Referrals / Follow Up: Elena Mims DO [Primary Care Provider] - Within 1 Week Disposition Disposition (needs filled in before D/C Order can be placed): Home, self care Addendum Addendum: Patient was seen and examined today independently of Letha Lowery, she appears stable for discharge at this time, I talked briefly with her niece by phone today. On examination she appeared in good health and spirits, she does not appear to be in any distress. Vital signs as documented. Skin warm and dry and without overt rashes. Neck without JVD, thyroid appears normal, trachea is midline, neck is supple. Lungs clear, normal air movement was noted. Heart exam notable for regular rhythm, normal sounds and absence of murmurs, rubs or gallops. Abdomen unremarkable and without evidence of organomegaly, masses, or abdominal aortic enlargement, bowel sounds are present in all 4 quadrants, no abdominal tenderness was noted. Extremities nonedematous, no cyanosis was noted, no clubbing was noted. Neuro: Cranial nerves II through XII are grossly intact, no focal motor deficits were noted, sensation to light touch and pinprick is intact, motor exam 5/5 throughout. Psych: Patient is alert and oriented x3, she does not appear anxious or depressed, she does not appear agitated. Patient appears stable for discharge to home at this time, I have reviewed Letha Lowery's discharge summary including her medical assessment and plan of care and endorse it. Visit Charges OBSV E&M: [id number] Observation care discharge
[2021-03-21] MEDS: Potassium Chloride Oral Tablet 20 MEQ PO (11:21)
[2021-03-22 13:26] LABS: Pathologist Review Reviewed
== END 2021-03-21 10:26 | disposition home or self-care (01) ==
LOC: ED 07:12 → PCU 09:40
PROVIDERS: Nurse Practitioner Family; Admitting Provider Internal Medicine; Emergency Provider Emergency Medicine; PCP Internal Medicine; Visit Provider Internal Medicine
DX: R53.1 Weakness (principal); N18.32 Chronic kidney disease, stage 3b; E11.22 Type 2 diabetes mellitus with diabetic chronic kidney disease; I12.9 Hypertensive chronic kidney disease with stage 1 through stage 4 chronic kidney disease, or unspecified chronic kidney disease; E78.5 Hyperlipidemia, unspecified; D64.9 Anemia, unspecified; E66.01 Morbid (severe) obesity due to excess calories; I89.0 Lymphedema, not elsewhere classified; Z79.899 Other long term (current) drug therapy; Z79.4 Long term (current) use of insulin; Z91.81 History of falling
CPT/HCPCS: 36415; 80048; 80053; 81001; 82962; 85025; 87086; 87088; 96360; 96361; 96372; 97110; 97162; 97166; 97802; 99218; 99285; J7030; P9612; A4216; G0378

== ENCOUNTER → 2021-06-18 08:34 | Outpatient (CLI) | payer MEDICARE, SELFPAY ==
[2021-03-20 09:27] VITALS: BMI 43.9
--- NOTE | 2021-06-18 08:36 | BI_ITS ---
MAMMOGRAPHY - BILATERAL SCREENING REASON FOR EXAM: Female, 75 years old. Routine annual screening examination. PERTINENT HISTORY: Non-contributory. TECHNIQUE: Digital bilateral breast jeffrey (3D mammographic acquisition) in the CC and MLO projections. 2-D mediolateral oblique (MLO) and craniocaudad (CC) views of both breasts were obtained. CAD: Full Field Digital Mammography with Computer Added Detection was performed. COMPARISON: Comparison is made with prior study dated 05/19/2020 and 03/08/2018. FINDINGS: Breast Composition: The breasts are almost entirely fatty. There are no dominant masses or suspicious calcifications. Stable benign-appearing bilateral axillary lymph nodes. No other significant abnormalities are identified. There has been no significant change since the prior study. BI/SCRN MAMM (CAD)W/JEFFREY BILAT IMPRESSION: Stable bilateral screening mammogram. Yearly follow-up mammogram recommended. (A) ASSESSMENT CATEGORY: BIRADS Category 2: Benign. A letter regarding these results will be sent to the patient by the facility within 30 days. Approximately 10% of breast cancers are not detected by mammography. A normal mammogram should not delay biopsy of a clinically suspicious abnormality. [id number] Electronically Signed: Bo Chan MD at 9:44 EDT , Service support ,
== END ==
PROVIDERS: PCP Internal Medicine; Referring Provider Internal Medicine; Visit Provider Internal Medicine
DX: Z12.31 Encounter for screening mammogram for malignant neoplasm of breast (principal); Z78.0 Asymptomatic menopausal state
CPT/HCPCS: 77063; 77067

== ENCOUNTER → 2021-06-28 09:28 | Outpatient (CLI) | payer MEDICARE, SELFPAY ==
[2021-06-28 10:32] LABS: Protein, Urine (Random) 56.2 mg/dL (<11.9); Protein:Creat Ratio 680 mg/g CRE (0-200)
[2021-06-28 10:41] LABS: Anion Gap 6 (5-15); BUN 38 mg/dL (7-18); BUN/Creat Ratio 16.8 RATIO (10-20); Calcium,Total 9.4 mg/dL (8.5-10.1); Chloride 111 mmol/L (98-107); Creatinine, Serum 2.26 mg/dL (0.55-1.02); EST Glomerular Filtration Rate 22 mL/min (>60); Est Glom Filt Rate - Afr Amer 27 mL/min (>60); Glucose 90 mg/dL (74-106); Iron 29 ug/dL (50-170); Iron Binding Capacity,Total 311 ug/dL (250-450); PERCENT IRON SATURATION 9.3 % (15.0-55.0); Potassium 5.4 mmol/L (3.5-5.1); Sodium Level 138 mmol/L (136-145)
== END ==
PROVIDERS: PCP Internal Medicine; Referring Provider Internal Medicine Nephrology; Visit Provider Internal Medicine Nephrology
DX: N18.32 Chronic kidney disease, stage 3b (principal); D64.9 Anemia, unspecified
CPT/HCPCS: 36415; 80048; 82570; 83540; 83550; 84156

== ENCOUNTER → 2021-07-26 10:40 | Outpatient (CLI) | payer MEDICARE, SELFPAY ==
[2021-07-26 12:46] LABS: Anion Gap 7 (5-15); BUN 28 mg/dL (7-18); BUN/Creat Ratio 19.6 RATIO (10-20); Calcium,Total 9.4 mg/dL (8.5-10.1); Chloride 109 mmol/L (98-107); Creatinine, Serum 1.43 mg/dL (0.55-1.02); EST Glomerular Filtration Rate 38 mL/min (>60); Est Glom Filt Rate - Afr Amer 46 mL/min (>60); Glucose 59 mg/dL (74-106); Potassium 4.4 mmol/L (3.5-5.1); Sodium Level 139 mmol/L (136-145)
== END ==
PROVIDERS: PCP Internal Medicine; Referring Provider Nurse Practitioner Adult Health; Visit Provider Nurse Practitioner Adult Health
DX: N18.32 Chronic kidney disease, stage 3b (principal)
CPT/HCPCS: 36415; 80048

== ENCOUNTER → 2021-09-02 09:21 | Outpatient (CLI) | payer MEDICARE, SELFPAY ==
[2021-09-02 10:45] LABS: Anion Gap 6 (5-15); BUN 19 mg/dL (7-18); BUN/Creat Ratio 12.8 RATIO (10-20); Chloride 107 mmol/L (98-107); Creatinine, Serum 1.49 mg/dL (0.55-1.02); EST Glomerular Filtration Rate 36 mL/min (>60); Est Glom Filt Rate - Afr Amer 44 mL/min (>60); Glucose 87 mg/dL (74-106); Potassium 4.3 mmol/L (3.5-5.1); Sodium Level 142 mmol/L (136-145)
== END ==
PROVIDERS: PCP Internal Medicine; Referring Provider Nurse Practitioner Adult Health; Visit Provider Nurse Practitioner Adult Health
DX: N18.32 Chronic kidney disease, stage 3b (principal)
CPT/HCPCS: 36415; 80048

== ENCOUNTER 2022-01-17 19:22 | Emergency (ER) | payer MEDICARE, SELFPAY ==
[2022-01-17 19:22] VITALS: BP 191/94; PULSE 69; RESP 18; TEMP 35.9; O2SAT 98; BMI 40.2
--- NOTE | 2022-01-17 21:08 | CT_ITS ---
STUDY: CT BRAIN WITHOUT CONTRAST REASON FOR EXAM: Female, 76 years old. HEADACHE trauma fELL THIS MORNING TECHNIQUE: Transaxial CT imaging of the brain was performed without administration of intravenous contrast material. Individualized dose optimization techniques were used for this CT. COMPARISON: 10.16.12 FINDINGS: Normal calvarium. Right periorbital soft tissue swelling. No fractures Normal size ventricles and extra-axial spaces for the patient''s age. Normal white matter tracts of the cerebral hemispheres. Normal basal ganglia and thalami. Normal brainstem. Normal cerebellum. There is no intracranial hemorrhage. There are no findings of an acute ischemic infarction. Degenerative changes of the mandibular condyles. ASPECTS 10 CT/Brain/Head without Contrast IMPRESSION: There are no acute intracranial findings. Electronically Signed: Jose Manuel De La Vega MD at 21:40 EDT ,
--- NOTE | 2022-01-17 21:10 | CT_ITS ---
EXAM: CT MAXILLOFACIAL WITHOUT INTRAVENOUS CONTRAST CLINICAL INDICATION: trauma pain TECHNIQUE: Helically acquired images were obtained of the face without intravenous contrast. This CT exam was performed using one or more of the following dose reduction techniques: automated exposure control, adjustment of the mA and/or kV according to patient size, and/or use of iterative reconstruction technique. This report was created using [employer] report generation technology. COMPARISON: None. FINDINGS: BONES/JOINTS: Degenerative changes of the mandibular condyles. SOFT TISSUES: Right periorbital soft tissue swelling. No fractures. No discrete fluid collections. ORBITS: Unremarkable. Both globes are unremarkable. Extraocular muscles are normal. Retrobulbar fat appears unremarkable. SINUSES: Unremarkable as visualized. Clear. MASTOID AIR CELLS: Unremarkable as visualized. Clear. DENTAL: No acute findings. No periodontal osseous erosion. CT/Sinus/Facial Bone IMPRESSION: Right periorbital soft tissue swelling. No fractures. Electronically Signed: Jose Manuel De La Vega MD at 21:41 EDT Reading Location ID and State: [facility] / [place] , Service support ,
--- NOTE | 2022-01-17 22:13 | EDS_ITS ---
HPI History of Present Illness Chief Complaint: Head Injury Informant: patient Onset/Context/Timing Onset: Today Quality of Pain: Aching Current Severity: Mild Maximum Severity: Mild Narrative Narrative: Patient presents after falling earlier this morning and injuring her head and face. She states that her feet got caught on the carpet and she fell forward striking her head against a block of wood. No loss of consciousness. No neck pain. She has abrasions along the right forehead and right periorbital ecchymosis. She denies being on blood thinners. [facility] Medical History Anemia Diabetes Hyperlipidemia Hypertension Osteoporosis Home Medications folic acid 1 mg PO DAILY@0800 01/21/17 [History Last Taken 03/04/19] metoprolol succinate [Toprol XL] 100 mg PO DAILY 01/21/17 [History Last Taken 03/04/19] rosuvastatin [Crestor] 40 mg PO MOWEFR 01/21/17 [History Last Taken 03/04/19] Tresiba FlexTouch U-200 30 units SQ DAILY 03/05/19 [History Last Taken 03/05/19] Trulicity 1 mg SQ FR 03/05/19 [History Last Taken 03/01/19] acetaminophen [Tylenol 8 Hour] 650 mg PO PRN PRN 03/05/19 [History Last Taken 03/02/19] alendronate 70 mg PO FAUSTIN 03/05/19 [History Last Taken 03/03/19] calcium carbonate-vitamin D3 [Caltrate with Vitamin D3] 1 tab PO BID 03/05/19 [History Last Taken 03/04/19] cholecalciferol (vitamin D3) 5,000 unit PO DAILY 03/05/19 [History Last Taken 03/04/19] cholecalciferol (vitamin D3) [Vitamin D3] 3,000 unit PO DAILY 03/05/19 [History Last Taken 03/04/19] metformin 1,000 mg PO BID 03/05/19 [History Last Taken 03/04/19] acetaminophen [Tylenol] 650 mg PO Q6H PRN PRN tablet 03/14/19 [Rx Last Taken Unknown] ferrous sulfate 325 mg PO DAILY 03/20/21 [History Last Taken Unknown] lisinopril 10 mg DAILY 03/20/21 [History Last Taken Unknown] nystatin [[facility]] 1 applic TOPICAL BID #1 bottle 03/21/21 [Rx Last Taken Unknown] Allergy/AdvReac Type Severity Reaction Status Date / Time chlorhexidine Allergy Unknown Verified 01/17/22 19:25 Iodinated Contrast Media Allergy Other Verified 01/17/22 19:25 [CONTRASTS] iodine Allergy Unknown Verified 01/17/22 19:25 Surgical History S/P tonsillectomy Status post total hip replacement, right Social History Smoking Status: Never smoker ROS ROS ED Constitutional Constitutional ED: Denies chills or fever(s) Eyes Eyes: Reports other Details: Right eyelid edema with eyelid swollen shut. ENT ENT ED: Denies rhinorrhea or sore throat Cardiovascular Cardiovascular: Denies chest pain Respiratory/Chest Respiratory/Chest: Denies cough or dyspnea Gastrointestinal Gastrointestinal: Denies abdominal pain, nausea or vomiting Musculoskeletal Musculoskeletal: Denies back pain or neck pain Integumentary Denies rash Neurologic Neurologic: Denies headache(s) or weakness Allergic/Immunologic Allergic/Immunologic ED: Denies urticaria EXAM Physical Exam Const Vital Signs: 01/17/22 19:22 01/17/22 21:57 01/17/22 22:21 Temperature 96.7 F L Temperature Source Temporal Pulse Rate 69 76 Respiratory Rate 18 18 Respiratory Effort Normal Non-Labored Respiratory Depth Normal Respiratory Pattern Normal Blood Pressure 191/94 H 170/66 H Blood Pressure Mean 126 Pulse Ox 98 95 Oxygen Delivery Method Room Air Room Air Positive well nourished and well developed General Appearance ED: well developed HEENT HEENT Narrative: Abrasions noted to the right forehead and right frontal scalp. Right periorbital ecchymosis and edema. Eyes PERRL and EOMs intact bilaterally General Eye ED: Yes other Other Details: When right eyelid is raised eye itself is unaffected. Extraocular movements fully intact. Neck full ROM Chest Wall inspection of chest normal and palpation of chest normal Resp normal respiratory effort and clear to auscultation bilaterally Cardio regular rhythm Rate: regular rate GI non-tender Palpation: soft Extremity normal to inspection Neuro oriented x3 Neuro Narrative: No focal neuro deficits Sensorium / Orientation: alert Psych mental status grossly normal MDM MDM MDM Narrative Medical decision making narrative: CT scan of the head and facial bones obtained. Radiography Diagnostic Testing: Clinical Impression(s) from Imaging Studies Brain CT 01/17/22 21:08 IMPRESSION: There are no acute intracranial findings. Electronically Signed: Jose Manuel De La Vega MD at 21:40 EDT , Facial/Sinus 01/17/22 21:10 IMPRESSION: Right periorbital soft tissue swelling. No fractures. Electronically Signed: Joes Manuel De La Vega MD at 21:41 EDT , Treatment and Re-Evaluation Narrative: CTs reveal soft tissue swelling only with no underlying fracture. Normal CT brain. Test results discussed with the patient. Supportive care as discussed. Return instructions given. Discharge Plan Triage Chief Complaint: Head Injury ED Provider: Yanci Maier Dx/Rx/DC Orders Clinical Impression: Fall, Periorbital hematoma Instructions: Black Eye, ED Head Injury (Adult) Prescriptions: No Action metoprolol succinate [Toprol XL] 50 MG tablet extended release 24 hr 100 mg PO DAILY RF: 0 folic acid 1 MG tablet 1 mg PO DAILY@0800 RF: 0 rosuvastatin [Crestor] 40 MG tablet 40 mg PO MOWEFR RF: 0 alendronate 70 MG tablet 70 mg PO FAUSTIN RF: 0 metformin 500 MG tablet 1,000 mg PO BID RF: 0 Tresiba FlexTouch U-200 200 UNIT/ML insulin pen 30 units SQ DAILY RF: 0 acetaminophen [Tylenol 8 Hour] 650 MG tablet extended release 650 mg PO PRN PRN (Reason: Pain) RF: 0 cholecalciferol (vitamin D3) 5,000 UNIT capsule 5,000 unit PO DAILY RF: 0 cholecalciferol (vitamin D3) [Vitamin D3] 1,000 UNIT tablet 3,000 unit PO DAILY RF: 0 calcium carbonate-vitamin D3 [Caltrate with Vitamin D3] 1 TAB tablet 1 tab PO BID RF: 0 Trulicity 1.5 MG/0.5 ML pen injector 1 mg SQ FR RF: 0 acetaminophen [Tylenol] 325 MG tablet 650 mg PO Q6H PRN PRN (Reason: Mild Pain (1-3)/Temp > 100.7 F) RF: 0 lisinopril 10 mg tablet 10 mg DAILY RF: 0 ferrous sulfate 325 MG tablet 325 mg PO DAILY RF: 0 nystatin [Nyamyc] 100,000 unit/gram Powder 1 applic topical BID Qty: 1 RF: 0 Primary Care Provider: Elena Mims Referrals: Elena Mims DO [Primary Care Provider] - 1-2 Weeks Disposition Disposition: Home, Self Care Discharge Date/Time: 01/17/22 22:25
[2022-01-17 22:21] VITALS: BP 170/66; PULSE 76; RESP 18; O2SAT 95
--- NOTE | 2022-01-19 12:30 | CM.ED ---
ER RNCM DC F/u Call: ED Visit 01.17.22 for Fall and Head Injury Called listed number on demographics, no answer. VM did identify correct patient and therefore VM left by this policy writer typist for return call for any issues, concerns or needs. Shaista Robertson, DEBRACM
== END 2022-01-17 22:25 | disposition home or self-care (01) ==
PROVIDERS: Emergency Provider Emergency Medicine; PCP Internal Medicine; Visit Provider Emergency Medicine
DX: S05.11XA Contusion of eyeball and orbital tissues, right eye, initial encounter (principal); E11.9 Type 2 diabetes mellitus without complications; S00.81XA Abrasion of other part of head, initial encounter; W01.198A Fall on same level from slipping, tripping and stumbling with subsequent striking against other object, initial encounter; I10 Essential (primary) hypertension; E78.5 Hyperlipidemia, unspecified; M81.0 Age-related osteoporosis without current pathological fracture; Z79.84 Long term (current) use of oral hypoglycemic drugs; Z79.899 Other long term (current) drug therapy
CPT/HCPCS: 70450; 70486; 99282

== ENCOUNTER 2022-01-22 13:13 | Observation (INO) | payer MEDICARE, SELFPAY ==
[2022-01-22] VITALS (9 sets, daily range): BP systolic 128–177; BP diastolic 64–121; PULSE 78–121; RESP 14–18; TEMP 36.9–37.4; O2SAT 93–98; BMI 40.2
--- NOTE | 2022-01-22 13:20 | EKG12_ITS ---
Test Reason : Blood Pressure : / mmHG Vent. Rate : 113 BPM Atrial Rate : 113 BPM P-R Int : 158 ms QRS Dur : 074 ms QT Int : 328 ms P-R-T Axes : 075 -27 016 degrees QTc Int : 449 ms Sinus tachycardia Inferior infarct , age undetermined Abnormal ECG Confirmed by BETSY PAREDES, CLIFF ([id number]), slot editor EFRA RUIZ ([id number]) on 01/25/2022 10:44:26 AM Referred By: HUMBERTO Confirmed By:CLIFF MEYER MD
--- NOTE | 2022-01-22 13:20 | CT_ITS ---
STUDY: CT FACIAL BONES WITHOUT CONTRAST REASON FOR EXAM: Female, 76 years old. Facial trauma. Fall 5 days ago. Found today with altered mental status. RADIATION DOSAGE (If Supplied By Facility): CTDIvol = ( 29.38 ) mGy, DLP = ( 532.76 ) mGycm TECHNIQUE: The patient was scanned in a multi detector CT scanner. Sagittal and coronal images were reconstructed. Individualized dose optimization techniques were used for this CT. COMPARISON: None. FINDINGS: Normal soft tissue structures. Normal orbital mckeon and orbital contents. Normal nasal bones and anterior nasal spine. Normal facial bones. There is no demonstrated fracture. Normal visualized paranasal sinuses. CT/Sinus/Facial Bone IMPRESSION: Normal unenhanced CT of the facial bones. Electronically Signed: Jose Manuel Pascual DO at 14:52 EDT ,
--- NOTE | 2022-01-22 13:20 | CT_ITS ---
STUDY: CT BRAIN WITHOUT CONTRAST REASON FOR EXAM: Female, 76 years old. Head injury. Fell 5 days ago. Found today with altered mental status. No loss of consciousness. RADIATION DOSAGE (If Supplied By Facility): CTDIvol = ( 44.99 ) mGy, DLP = ( 1558.48 ) mGycm TECHNIQUE: Transaxial CT imaging of the brain was performed without administration of intravenous contrast material. Individualized dose optimization techniques were used for this CT. COMPARISON: 01/17/2022. FINDINGS: Normal soft tissue structures. There is hyperostosis frontalis internus. There is mild cerebral atrophy with widening of the extra-axial spaces and ventricular dilatation. Normal white matter tracts of the cerebral hemispheres. Normal basal ganglia and thalami. Normal brainstem. Normal cerebellum. There is no intracranial hemorrhage. There are no findings of an acute ischemic infarction. Normal visualized paranasal sinuses. CT/Brain/Head without Contrast IMPRESSION: No acute intracranial or calvarial abnormality. There is no major interval change. Electronically Signed: Jose Manuel Pascual DO at 14:53 EDT ,
--- NOTE | 2022-01-22 13:20 | RAD_ITS ---
STUDY: X-RAY CHEST REASON FOR EXAM: Female, 76 years old. Weakness. TECHNIQUE: Single AP portable view of the chest. COMPARISON: 03/08/2019. FINDINGS: Is absence of a right jugular hemodialysis catheter seen on the prior study. The lungs are clear and expanded. There is no demonstrated pleural abnormality. Normal size heart. Normal mediastinum and elijah. Normal visualized pulmonary arteries. Normal visualized aortic arch and descending thoracic aorta. There are diffuse degenerative changes of the visualized thoracic spine. There is degenerative osteoarthritis of the bilateral shoulders. There is no demonstrated abnormality of the visualized soft tissue structures of the upper abdomen. RAD/Chest 1 View (Portable) IMPRESSION: No acute cardiopulmonary disease or major interval change. Electronically Signed: Jose Manuel Pascual DO at 14:55 EDT ,
--- NOTE | 2022-01-22 13:20 | CT_ITS ---
STUDY: CT CERVICAL SPINE WITHOUT CONTRAST REASON FOR EXAM: Female, 76 years old. Fall 5 days ago. Altered mental status today. RADIATION DOSAGE (If Supplied By Facility): CTDIvol = ( 24.95 ) mGy, DLP = ( 496.82 ) mGycm TECHNIQUE: High resolution transaxial imaging was performed without contrast material. Sagittal and coronal images were reconstructed. Individualized dose optimization techniques were used for this CT. COMPARISON: None FINDINGS: The study is limited due to motion artifact as the patient would not stop moving and healing during the examination. Normal craniovertebral junction. There are degenerative changes of the anterior atlantoaxial articulation. Normal odontoid process. Normal cervical lordosis. Normal vertebral bodies and posterior osseous elements. C2-3: Normal endplates. There is narrowing of the disc space. There is questionable retrolisthesis of C2 on C3 although this may be secondary to motion artifact. There is no facet joint subluxation although degenerative changes are noted.. Normal central canal and intervertebral neuroforamina. C3-4: Normal endplates. Minimal loss of disc height without bulging annulus. Facet joint degenerative change. Normal central canal and intervertebral neuroforamina. C4-5: Marked misregistration secondary to movement. The disc space appears maintained. Normal endplates. Facet joint degenerative change. Normal central canal and intervertebral neuroforamina. C5-6: Implant spondylosis with loss of disc height. Facet and uncovertebral joint degenerative change. Normal central canal. Mild narrowing of the left intervertebral neuroforamen. C6-7: Endplate spondylosis. Marked loss of disc height. Facet and uncovertebral joint degenerative change. Normal central canal and intervertebral neuroforamina. C7-T1: Normal endplates. Normal disc height and morphology. Normal central canal and intervertebral neuroforamina. Normal visualized soft tissue structures. CT/Spine Cervical without Contras IMPRESSION: 1. Limited study due to motion artifact. Degenerative changes cervical spine with no visualized fracture or subluxation. If there is continued concern for spinal cord or nerve root abnormality, MRI with sedation is recommended. Electronically Signed: Jose Manuel Pascual DO at 14:49 EDT Reading Location ID and State: [facility] / [place] Tel [phone], Service support ,
--- NOTE | 2022-01-22 13:51 | EDS_ITS ---
HPI HPI - Fall History of Present Illness Chief Complaint: Fall Narrative Narrative: 76-year-old female presenting with weakness. She states she fell at home and cannot tell me why she fell. She states she fell in her bedroom. She could not get up off the floor. She believes she was there for for 5 hours. She states she hit her head but did not lose consciousness. She complains of neck pain. Patient has no recent history of fall with head injury a couple of days ago. She was seen in the ER and had a head CT which is negative. Patient has been home since. EMS does report that her house was then poor condition and very dirty and disorganized. Patient states that she does not have any chest pain or shortness of breath. She denies abdominal pain. She does not have any hip or leg pain. [facility] Medical History Anemia Diabetes Hyperlipidemia Hypertension Osteoporosis Home Medications folic acid 1 mg PO DAILY@0800 01/21/17 [History Last Taken 03/04/19] metoprolol succinate [Toprol XL] 100 mg PO DAILY 01/21/17 [History Last Taken 03/04/19] rosuvastatin [Crestor] 40 mg PO MOWEFR 01/21/17 [History Last Taken 03/04/19] Tresiba FlexTouch U-200 5 units SQ DAILY 03/05/19 [History Last Taken 03/05/19] Trulicity 2 mg SQ FR 03/05/19 [History Last Taken 03/01/19] acetaminophen [Tylenol 8 Hour] 650 mg PO PRN PRN 03/05/19 [History Last Taken 03/02/19] alendronate 70 mg PO FAUSTIN 03/05/19 [History Last Taken 03/03/19] calcium carbonate-vitamin D3 [Caltrate with Vitamin D3] 1 tab PO BID 03/05/19 [History Last Taken 03/04/19] cholecalciferol (vitamin D3) 5,000 unit PO DAILY 03/05/19 [History Last Taken 03/04/19] cholecalciferol (vitamin D3) [Vitamin D3] 3,000 unit PO DAILY 03/05/19 [History Last Taken 03/04/19] metformin 1,000 mg PO BID 03/05/19 [History Last Taken 05/06/19] acetaminophen [Tylenol] 650 mg PO Q6H PRN PRN tablet 03/14/19 [Rx Last Taken Unknown] ferrous sulfate 325 mg PO DAILY 03/20/21 [History Last Taken Unknown] lisinopril 10 mg DAILY 03/20/21 [History Last Taken Unknown] nystatin [Nyamyc] 1 applic TOPICAL BID #1 bottle 03/21/21 [Rx Last Taken Unknown] alendronate 70 mg PO 01/22/22 [History Last Taken Unknown] citalopram 20 mg PO DAILY 01/22/22 [History Last Taken Unknown] furosemide 80 mg PO DAILY 01/22/22 [History Last Taken Unknown] Allergy/AdvReac Type Severity Reaction Status Date / Time chlorhexidine Allergy Unknown Verified 01/17/22 19:25 Iodinated Contrast Media Allergy Other Verified 01/17/22 19:25 [CONTRASTS] iodine Allergy Unknown Verified 01/17/22 19:25 Surgical History S/P tonsillectomy Status post total hip replacement, right Social History Smoking Status: Never smoker ROS ROS ED Constitutional Constitutional ED: Denies chills or fever(s) Eyes Eyes: Denies blurry vision or diplopia ENT ENT ED: Denies rhinorrhea or sore throat Cardiovascular Cardiovascular: Denies chest pain or palpitations Respiratory/Chest Respiratory/Chest: Denies cough or dyspnea Gastrointestinal Gastrointestinal: Denies abdominal pain, diarrhea, nausea or vomiting Genitourinary Genitourinary ED: Denies dysuria or hematuria Musculoskeletal Musculoskeletal: Denies arthralgias, back pain or myalgias Integumentary Reports rash Neurologic Neurologic: Denies headache(s) EXAM Physical Exam Const Vital Signs: 01/22/22 13:02 01/22/22 13:51 01/22/22 14:20 Temperature 98.4 F Temperature Source Temporal Pulse Rate 97 99 Respiratory Rate 16 18 Respiratory Effort Normal Respiratory Depth Normal Respiratory Pattern Normal Blood Pressure 167/74 H 162/93 H Blood Pressure Mean 105 116 Pulse Ox 96 98 Oxygen Delivery Method Room Air Room Air Room Air 01/22/22 15:03 Temperature Temperature Source Pulse Rate 98 Respiratory Rate 14 Respiratory Effort Respiratory Depth Respiratory Pattern Blood Pressure 128/89 H Blood Pressure Mean 102 Pulse Ox 98 Oxygen Delivery Method Room Air Positive obese Nutritional Appearance: obese HEENT Reports normocephalic HEENT Narrative: Large areas of bruising on the forehead and on the face in multiple stages of healing. No hemotympanum. Nasal bone midline without epistaxis. No jaw malocclusion. Eyes PERRL and EOMs intact bilaterally Neck Neck Narrative: Tenderness to palpation diffusely over the cervical spine. No obvious deformity or step-off. Resp normal respiratory effort and clear to auscultation bilaterally Cardio regular rate and regular rhythm GI non-tender and non-distended Palpation: soft Neuro oriented x3 and CN's II-XII intact bilaterally Sensorium / Orientation: alert Skin Skin Narrative: Large area of intertriginous rash underneath the pannus and extending onto the bilateral thighs and into the inguinal region. This is erythematous and is tender. No crepitance. MDM MDM MDM Narrative Medical decision making narrative: Patient presenting with weakness. She states she fell for 5 hours ago. She could not get up. She did hit her head but she did not lose consciousness. She does have old bruising on her face from her previous fall. She is complaining of neck pain as well. We just be evaluated today. EKG shows a sinus rhythm with a ventricular rate of 113 bpm without sign of ischemic change. Chest x-ray on my interpretation shows no acute cardiopulmonary process and the radiologist agree. Patient has leukocytosis of 16.6. Hemoglobin is 10.1 at baseline. Platelets 361 and therefore normal. Creatinine at baseline at 1.43. Electrolytes normal. Total bilirubin is slightly elevated at 1.10 however other LFTs are normal. Total CK is 409. Patient was given initial patient was given 1000 cc of IV fluids. Urinalysis negative for infection. Patient does have fairly diffuse intertrigo under her pannus and in her inguinal folds. She states this has been there for a very long time. She does not believe it is any different. CT brain, cervical spine, maxillofacial all negative for acute fracture abnormalities. Given patient's weakness she will need to be admitted to the hospital. I spoke with the hospitalist regarding the patient. She is transferred to the floor in stable condition. Of note I did notify social work that EMS had showed pictures to me of her home and that it was then disarray. She does not have anyone else help home Impression: 1. Falls 2. Closed head injury 3. Neck pain 4. Dehydration 5. Debility Lab Data Attestation: I reviewed the patient's lab results. Labs: Laboratory Results - last 24 hr 01/22/22 01/22/22 01/22/22 13:45 13:50 13:50 WBC 16.6 H RBC 4.32 Hgb 10.1 L Hct 33.6 L MCV 77.8 L MCH 23.4 L MCHC 30.1 L RDW Std Deviation 47.2 H RDW Coeff of [place] 16.5 H Plt Count 361 MPV 9.5 Immature Gran % (Auto) 0.400 Neut % (Auto) 81.5 H Lymph % (Auto) 6.5 L Walton % (Auto) 10.8 H Eos % (Auto) 0.6 Baso % (Auto) 0.2 Absolute Neuts (auto) 13.5 H Absolute Lymphs (auto) 1.08 Nucleated RBC % 0 Diff Path Review May foll Sodium 140 Potassium 4.2 Chloride 105 Carbon Dioxide 29.0 Anion Gap 6 BUN 17 Creatinine 1.43 H Estim Creat Clear Calc 26.88 Est GFR (MDRD) Af Amer 46 L Est GFR (MDRD) Non-Af 38 L BUN/Creatinine Ratio 11.9 Glucose 120 H Calcium 9.2 Total Bilirubin 1.10 H AST 16 ALT 16 Alkaline Phosphatase 88 Total Creatine Kinase 409 H Total Protein 7.7 Albumin 3.1 L Globulin 4.6 H Albumin/Globulin Ratio 0.7 L Urine Color Yellow Urine Clarity Clear Urine pH 8.0 Ur Specific [place] 1.010 Urine Protein 15 H Urine Glucose (UA) Normal Urine Ketones Negative Urine Occult Blood 50 H Urine Nitrite Negative Urine Bilirubin Negative Urine Urobilinogen Normal Ur Leukocyte Esterase Negative Urine RBC 0-5 SEEN Urine WBC 0 SEEN Ur Squamous Epith Cells 0 SEEN Urine Bacteria 0 SEEN Urine Mucus 0 SEEN Radiography Diagnostic Testing: Clinical Impression(s) from Imaging Studies Brain CT 01/22/22 13:20 IMPRESSION: No acute intracranial or calvarial abnormality. There is no major interval change. Electronically Signed: Jose Manuel Pascual DO at 14:53 EDT Reading Location ID and State: [address] [place] [address] Tel [phone], Service support , Cervical Spine CT 01/22/22 13:20 IMPRESSION: 1. Limited study due to motion artifact. Degenerative changes cervical spine with no visualized fracture or subluxation. If there is continued concern for spinal cord or nerve root abnormality, MRI with sedation is recommended. Electronically Signed: Jose Manuel Pascual DO at 14:49 EDT Reading Location ID and State: [facility] / [place] Tel [phone], Service support , ADDENDUM: 01/22/22 1459 Chest X-Ray 01/22/22 13:20 IMPRESSION: No acute cardiopulmonary disease or major interval change. Electronically Signed: Jose Manuel Pascual DO at 14:55 EDT Reading Location ID and State: [facility] / [place] Tel [phone], Service support , Facial/Sinus 01/22/22 13:20 IMPRESSION: Normal unenhanced CT of the facial bones. Electronically Signed: Jose Manuel Pascual DO at 14:52 EDT Reading Location ID and State: [address] [place] [address] Tel [phone], Service support , Discharge Plan Triage Chief Complaint: Fall ED Provider: Ricky Bonilla Dx/Rx/DC Orders Prescriptions: No Action metoprolol succinate [Toprol XL] 50 MG tablet extended release 24 hr 100 mg PO DAILY RF: 0 folic acid 1 MG tablet 1 mg PO DAILY@0800 RF: 0 rosuvastatin [Crestor] 40 MG tablet 40 mg PO MOWEFR RF: 0 alendronate 70 MG tablet 70 mg PO FAUSTIN RF: 0 metformin 500 MG tablet 1,000 mg PO BID RF: 0 Tresiba FlexTouch U-200 200 UNIT/ML insulin pen 5 units SQ DAILY RF: 0 acetaminophen [Tylenol 8 Hour] 650 MG tablet extended release 650 mg PO PRN PRN (Reason: Pain) RF: 0 cholecalciferol (vitamin D3) 5,000 UNIT capsule 5,000 unit PO DAILY RF: 0 cholecalciferol (vitamin D3) [Vitamin D3] 1,000 UNIT tablet 3,000 unit PO DAILY RF: 0 calcium carbonate-vitamin D3 [Caltrate with Vitamin D3] 1 TAB tablet 1 tab PO BID RF: 0 Trulicity 1.5 MG/0.5 ML pen injector 2 mg SQ FR RF: 0 acetaminophen [Tylenol] 325 MG tablet 650 mg PO Q6H PRN PRN (Reason: Mild Pain (1-3)/Temp > 100.7 F) RF: 0 lisinopril 10 mg tablet 10 mg DAILY RF: 0 ferrous sulfate 325 MG tablet 325 mg PO DAILY RF: 0 nystatin [Nyamyc] 100,000 unit/gram Powder 1 applic topical BID Qty: 1 RF: 0 alendronate 70 mg tablet 70 mg PO RF: 0 citalopram 20 mg tablet 20 mg PO DAILY RF: 0 furosemide 80 mg Tablet 80 mg PO DAILY RF: 0 Primary Care Provider: Elena Mims
[2022-01-22 13:55] LABS: Bacteria 0 SEEN /hpf (None Seen); Mucous, Urine 0 SEEN /hpf (<or=2+); Squamous Epithelial Cells - UA 0 SEEN /hpf (5-10); White Blood Cells 0 SEEN /hpf (0-5)
[2022-01-22 13:58] LABS: Color, Urine Yellow (Yellow); Glucose, Dipstick Normal (Normal); Ketone-Dipstick Negative (Negative); Leukocyte Esterase-Dipstick Negative /ul (Negative); Nitrite-Dipstick Negative (Negative); Occult Blood-Urine 50 /ul (Negative); Protein-Dipstick 15 mg/dl (Negative); Urine Bilirubin Dipstick Negative (Negative); Urine Clarity Clear (Clear); Urine Urobilinogen Normal (Normal)
[2022-01-22 14:00] LABS: Absolute Lymphocyte Count 1.08 X10^3/uL (0.83-4.51); Absolute Neutrophil Count 13.5 X10^3/uL (2.0-7.7); Basophil# 0.04 X10^3/uL; Basophil% 0.2 % (0-1); Eosinophils% 0.6 % (0-5); Hematocrit 33.6 % (37-47); Hemoglobin 10.1 g/dL (12.0-15.0); Lymphocyte # 1.08 X10^3/ul (0.83-4.51); Lymphocyte % 6.5 % (19-41); Mean Corp Hgb Conc 30.1 g/dL (32-36); Mean Corpuscular Hgb 23.4 pg (27.0-32.0); Mean Corpuscular Volume 77.8 fL (81-99); Mean Platelet Vol. 9.5 fl (6.2-12.0); Monocyte# 1.79 X10^3/uL; Monocyte% 10.8 % (0-10); NRBC Flagged by Analyzer 0 % (0-5); Neutrophil # 13.54 X10^3/uL (2.7-7.7); Neutrophil % 81.5 % (47-70); POSITIVE DIFFERENTIAL YES; Platelet Count 361 K/mm3 (150-450); RBC Distribution Width CV 16.5 % (11.6-14.6); RBC Distribution Width SD 47.2 fl (35.1-43.9); Red Blood Count 4.32 M/mm3 (4.2-5.4); White Blood Count 16.6 K/mm3 (4.4-11.0)
[2022-01-22 14:01] LABS: Differential Indicated SCAN CRITERIA MET
[2022-01-22 14:04] LABS: Red Blood Cells-Urine 0-5 SEEN /hpf (0-5)
[2022-01-22 14:15] LABS: ALB/GLOB Ratio 0.7 RATIO (0.9-2.4); AST(SGOT) 16 U/L (15-37); Alanine Aminotransfer ALT/SGPT 16 U/L (13-56); Albumin, Serum 3.1 g/dL (3.2-5.0); Alkaline Phosphatase 88 U/L (45-117); Anion Gap 6 (5-15); BUN 17 mg/dL (7-18); BUN/Creat Ratio 11.9 RATIO (10-20); CPK Total, Creatine Kinase 409 U/L (26-192); Calcium,Total 9.2 mg/dL (8.5-10.1); Chloride 105 mmol/L (98-107); Creatinine, Serum 1.43 mg/dL (0.55-1.02); EST Glomerular Filtration Rate 38 mL/min (>60); Est Glom Filt Rate - Afr Amer 46 mL/min (>60); Estimated Creatinine Clearance 26.88 ml/min; Globulin 4.6 g/dL (2.2-4.2); Glucose 120 mg/dL (74-106); Potassium 4.2 mmol/L (3.5-5.1); Protein, Total 7.7 g/dL (6.4-8.2); Sodium Level 140 mmol/L (136-145)
--- NOTE | 2022-01-22 14:20 | CM.ED ---
Social Work Consult: Concern of patient being able to care for self and home in the community. Referral source: EMS. EMS brought patient to ED. EMS reports that home is unkept, moldy food and dishes. EMS showing this social media sr strategy manager multiple pictures of patient home. Bathroom appears to have fecal matter on the floor along with used toilet paper. Dishes and spoiled food to be spread out around the house. EMS made same report to ED doctor. Social Work to continue to follow. Garret NEWELL, ELDA
--- NOTE | 2022-01-22 15:20 | PCM.HP.STD ---
HPI - General General Date of Admission: 01/22/22 Date of Service: 01/22/22 Chief Complaint: Mechanical fall, FTT, unable to care for self HPI Narrative The patient is 76 y/o F w/ PMHx: Anxiety and Depression, Morbid Obesity, Chronic anemia/Fe deficiency anemia, HTN, HLD, OA, Diabetes mellitus type II, CKD stage III unclear subtype who presents to the [facility] ED on 01/22/22 with history of recent falls including on 01/17/2022 with a evaluation at that time with no acute findings however patient represents now secondary to recurrent fall with no prodrome and no loss of consciousness but extremely debilitated and living alone laying on the floor for nearly 5 hours until she was able to get help. EMS upon evaluation of the patient did report that her living conditions were very soiled and she is disheveled in appearance with concern for her ability to care for self safely. In the ED patient with notable skin fold intertrigo and she notes that this is chronic and unchanged. She does report itching it. She denies fever and chills. Work-up in the ED included T 98.4, heart rate 97, BP initially 167/74, respiratory rate 16, 96% on room air, CBC with WC 16.6, hemoglobin 10.1, platelet 361 with left shift, CMP with BUN/creatinine 17/1.43, glucose 120, T bilirubin 1.10, total creatinine kinase 4 9 otherwise not marked appearing, urinalysis unremarkable with no obvious evidence of UTI, CT the brain with no acute intracranial findings, CT cervical spine with no acute osseous findings, chest x-ray with no acute cardiopulmonary findings, facial and sinus film with no acute fractures identified. In the ED patient ministered normal saline. [facility] Medical History (Updated 01/22/22 @ 16:[address] Esha Jiménez MD) Anemia History of gastroesophageal reflux (GERD) Hyperlipidemia Hypertension Lymphedema Morbid obesity Osteoporosis Type II diabetes mellitus Home Medications folic acid 1 mg PO DAILY@0800 01/21/17 [History Last Taken 03/04/19] metoprolol succinate [Toprol XL] 100 mg PO DAILY 01/21/17 [History Last Taken 03/04/19] rosuvastatin [Crestor] 40 mg PO MOWEFR 01/21/17 [History Last Taken 03/04/19] Tresiba FlexTouch U-200 5 units SQ DAILY 03/05/19 [History Last Taken 03/05/19] Trulicity 2 mg SQ FR 03/05/19 [History Last Taken 03/01/19] acetaminophen [Tylenol 8 Hour] 650 mg PO PRN PRN 03/05/19 [History Last Taken 03/02/19] alendronate 70 mg PO FAUSTIN 03/05/19 [History Last Taken 03/03/19] calcium carbonate-vitamin D3 [Caltrate with Vitamin D3] 1 tab PO BID 03/05/19 [History Last Taken 03/04/19] cholecalciferol (vitamin D3) 5,000 unit PO DAILY 03/05/19 [History Last Taken 03/04/19] cholecalciferol (vitamin D3) [Vitamin D3] 3,000 unit PO DAILY 03/05/19 [History Last Taken 03/04/19] metformin 1,000 mg PO BID 03/05/19 [History Last Taken 03/04/19] acetaminophen [Tylenol] 650 mg PO Q6H PRN PRN tablet 03/14/19 [Rx Last Taken Unknown] ferrous sulfate 325 mg PO DAILY 03/20/21 [History Last Taken Unknown] lisinopril 10 mg DAILY 03/20/21 [History Last Taken Unknown] nystatin [Nyamyc] 1 applic TOPICAL BID #1 bottle 03/21/21 [Rx Last Taken Unknown] alendronate 70 mg PO 01/22/22 [History Last Taken Unknown] citalopram 20 mg PO DAILY 01/22/22 [History Last Taken Unknown] furosemide 80 mg PO DAILY 01/22/22 [History Last Taken Unknown] Allergy/AdvReac Type Severity Reaction Status Date / Time chlorhexidine Allergy Unknown Verified 01/17/22 19:25 Iodinated Contrast Media Allergy Other Verified 01/17/22 19:25 [CONTRASTS] iodine Allergy Unknown Verified 01/17/22 19:25 other (Patient denies any marked maternal or paternal family history including HD, DM, CA.) Surgical History (Updated 01/22/22 @ 16:[address] Esha Jiménez MD) History of elbow surgery History of tonsillectomy and adenoidectomy 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 Social History (Updated 01/22/22 @ 16:[address] Esha Jiménez MD) household members: none Smoking Status: Never smoker alcohol intake: never substance use type: does not use ROS ROS Narrative Admission Review of Systems: CONSTITUTIONAL: No weight loss, fever, chills, + weakness or fatigue. HEENT: + Facial bruising and discomfort status post recent fall. Eyes: No visual loss, blurred vision, double vision or yellow sclerae. Ears, Nose, Throat: No hearing loss, sneezing, congestion, runny nose or sore throat. SKIN: + Significant intertrigo, very staged ecchymoses especially the face secondary to recent falls. CARDIOVASCULAR: No chest pain, chest pressure or chest discomfort, palpitations, edema, orthopnea, syncopal events. RESPIRATORY: No shortness of breath, cough or sputum, wheezing, hemoptysis. GASTROINTESTINAL: No anorexia, nausea, vomiting or diarrhea, abdominal pain, melena, BRBPR. GENITOURINARY: No dysuria, frequency, urgency or retention. NEUROLOGICAL: + Frequent falls. No headache, dizziness, syncope, paralysis, ataxia, numbness or tingling in the extremities, focal weakness, change in bowel or bladder control, seizure. MUSCULOSKELETAL: + muscle, back pain, joint pain or stiffness. HEMATOLOGIC: + anemia, bleeding or bruising. LYMPHATICS: No enlarged nodes. No history of splenectomy. PSYCHIATRIC: + history of depression or anxiety. ENDOCRINOLOGIC: No reports of sweating, cold or heat intolerance. No polyuria or polydipsia. ALLERGIES: No history of asthma, hives, eczema or rhinitis. Vital Signs Vital Signs Vital Signs: 01/22/22 13:02 01/22/22 13:51 01/22/22 14:20 Temperature 98.4 F Temperature Source Temporal Pulse Rate 97 99 Respiratory Rate 16 18 Respiratory Effort Normal Respiratory Depth Normal Respiratory Pattern Normal Blood Pressure 167/74 H 162/93 H Blood Pressure Mean 105 116 Pulse Ox 96 98 Oxygen Delivery Method Room Air Room Air Room Air 01/22/22 15:03 Temperature Temperature Source Pulse Rate 98 Respiratory Rate 14 Respiratory Effort Respiratory Depth Respiratory Pattern Blood Pressure 128/89 H Blood Pressure Mean 102 Pulse Ox 98 Oxygen Delivery Method Room Air Weight Weight: 220 lb Body Mass Index (BMI) 40.2 Physical Exam Narrative Physical Examination: General: Awake, alert, oriented x 3 including self, place and recent events, sometimes seems a bit confused, seated upright in the ED bed, notes wanting to go home but understands that we feel she is unsafe and needs to stay with us for further evaluation. Skin: Normal color, normal turgor, no icterus, no cyanosis except significant very staged ecchymoses especially to the face and significant mild underneath breast and notable groin and abdominal fold intertrigo, beefy red, moist, malodorous. HEENT: AT/NC, EOMI, PERRLA, mildly dry MM, no carotid bruits or JVD noted, notable facial staged ecchymoses, right greater than left. Lungs: Diminished, greater bases, appropriate effort, no rales, ronchi or wheezing. Heart: Currently regular rate and rhythm; no gallop, rub audible. Abdomen: Soft, morbidly obese, NTTP, ND, distant mildly hyperactive BS, no obvious evidence of HSM; however, habitus makes examination difficult, significant intertrigo noted in the abdominal folds, see skin. Extremities: No cyanosis, no clubbing, chronic lymphedema. Neurological: Patient awake, alert, oriented as noted, cognitive function suspect baseline reduced with suspected underlying dementia component/cognitive impairment; pupils equally reactive to light and accommodation, cranial nerves II-XII grossly normal, moving all 4 extremities, no focal deficits, strength severely global decreased Psychiatric: Affect appears mildly fatigued and discombobulated, no acute evidence of depressive or anxiety feelings. Results Lab / Micro Data Result Diagrams: 01/22/22 13:50 01/22/22 13:50 Labs: Laboratory Results - last 24 hr 01/22/22 13:45: Urine Color Yellow, Urine Clarity Clear, Urine pH 8.0, Ur Specific Bighorn 1.010, Urine Protein 15 H, Urine Glucose (UA) Normal, Urine Ketones Negative, Urine Occult Blood 50 H, Urine Nitrite Negative, Urine Bilirubin Negative, Urine Urobilinogen Normal, Ur Leukocyte Esterase Negative, Urine RBC 0-5 SEEN, Urine WBC 0 SEEN, Ur Squamous Epith Cells 0 SEEN, Urine Bacteria 0 SEEN, Urine Mucus 0 SEEN 01/22/22 13:50: WBC 16.6 H, RBC 4.32, Hgb 10.1 L, Hct 33.6 L, MCV 77.8 L, MCH 23.4 L, MCHC 30.1 L, RDW Std Deviation 47.2 H, RDW Coeff of Juan Diego 16.5 H, Plt Count 361, MPV 9.5, Immature Gran % (Auto) 0.400, Neut % (Auto) 81.5 H, Lymph % (Auto) 6.5 L, [place] % (Auto) 10.8 H, Eos % (Auto) 0.6, Baso % (Auto) 0.2, Absolute Neuts (auto) 13.5 H, Absolute Lymphs (auto) 1.08, Nucleated RBC % 0, Diff Path Review February01/22/22 13:50: Sodium 140, Potassium 4.2, Chloride 105, Carbon Dioxide 29.0, Anion Gap 6, BUN 17, Creatinine 1.43 H, Estim Creat Clear Calc 26.88, Est GFR (MDRD) Af Amer 46 L, Est GFR (MDRD) Non-Af 38 L, BUN/Creatinine Ratio 11.9, Glucose 120 H, Calcium 9.2, Total Bilirubin 1.10 H, AST 16, ALT 16, Alkaline Phosphatase 88, Total Creatine Kinase 409 H, Total Protein 7.7, Albumin 3.1 L, Globulin 4.6 H, Albumin/Globulin Ratio 0.7 L Radiology Impression Brain CT 01/22/22 13:20 IMPRESSION: No acute intracranial or calvarial abnormality. There is no major interval change. Electronically Signed: Jose Manuel Pascual DO at 14:53 EDT Reading Location ID and State: [employer] / [employer] Tel [phone], Service support , Cervical Spine CT 01/22/22 13:20 IMPRESSION: 1. Limited study due to motion artifact. Degenerative changes cervical spine with no visualized fracture or subluxation. If there is continued concern for spinal cord or nerve root abnormality, MRI with sedation is recommended. Electronically Signed: Jose Manuel Pascual DO at 14:49 EDT Reading Location ID and State: [employer] / [employer] Tel [phone], Service support , ADDENDUM: 01/22/22 1459 Chest X-Ray 01/22/22 13:20 IMPRESSION: No acute cardiopulmonary disease or major interval change. Electronically Signed: Jose Manuel Pascual DO at 14:55 EDT Reading Location ID and State: [employer] Tel [phone], Service support , Facial/Sinus 01/22/22 13:20 IMPRESSION: Normal unenhanced CT of the facial bones. Electronically Signed: Jose Manuel Pascual DO at 14:52 EDT Reading Location ID and State: [address] [place] [address] Tel [phone], Service support , Assessment & Plan Assessment/Plan (1) Fall: QUALIFIERS: Encounter type: initial encounter Qualified Code(s): W19.XXXA - Unspecified fall, initial encounter PLAN: The patient is 76 y/o F w/ PMHx: Anxiety and Depression, Morbid Obesity, Chronic anemia/Fe deficiency anemia, HTN, HLD, OA, Diabetes mellitus type II, CKD stage III unclear subtype who presents to the [facility] ED on 01/22/22 with history of recent falls including on 01/17/2022 with a evaluation at that time with no acute findings however patient represents now secondary to recurrent fall with no prodrome and no loss of consciousness but extremely debilitated and living alone laying on the floor for nearly 5 hours until she was able to get help. #1. Debility, failure to thrive in adult with mechanical falls: Given recent mechanical falls with no loss of consciousness but ongoing debility and per EMS significantly disheveled living circumstances will admit to medical surgical floor, maintain on fall precautions, obtain orthostatic vital signs upon presentation with BP regimen alterations if necessary, CBC with mild WBC elevation with left shift but chest x-ray and urinalysis are no marked appearing and will attempt topicals as well as IV rocephin in case superimposed bacterial infection on top of intertrigo as noted, continue judicious fluids, PT/OT/case management consultations for discharge planning. #2. Mild rhabdomyolysis: Patient with history of being down on the ground secondary to debility and fall x5 hours, total creatinine kinase is only mildly elevated at 409, will continue judicious hydration and repeat level in AM. #3. Intertrigo with Possible Superimposed bacterial infection: Will initiate patient on aggressive ketoconazole regimen, zinc oxide PRN for barrier although may add oral diflucan if necessary in addition to IV rocephin for potential superimposed bacterial infection also. Procalcitonin pending. Continue routine cleansing, barrier care, keeping regions dry. #4. Hypertension: Continue home regimen including Lasix, lisinopril, metoprolol with hold parameters as needed and may need readjustment pending orthostatics given fall history, PRN hydralazine. #5. Hyperlipidemia: We will continue patient on statin therapy. #6. Diabetes mellitus type II: Hold oral home regimen, ADA diet, accu checks w/ ISS. #7. Chronic anemia, iron deficiency: Admission hemoglobin 10.1, MCV 77.8, baseline 9-10, stable, continue iron supplementation and trending #8. Chronic Kidney Disease Stage III, unclear subtype: Admission BUN/Cr 17/1.43, baseline renal function 1.2-1.4, repeat BMP in AM. #9. Morbid Obesity: Weight loss and lifestyle changes encouraged. #10. Anxiety and depression: We will continue patient home citalopram regimen. #11. DVT prophylaxis: SCDs, Lovenox. #12. CODE status: Patient HCPOA is Letha her great niece she notes and living will is currently in place. Discussed CODE status at length including difference between FULL code, DNR-CCA and DNR-CC status. Following discussions about the differences in these status, requested Full Code status. Advanced Care Planning Face to Face Time: 16 minutes. Charges/Coding Visit Charges OBSV E&M: 16190 Initial observation care L3 Procedures Hospitalists Procedures: 05972 Advncd Care Plan 30 Min
--- NOTE | 2022-01-22 15:34 | NURSING ---
MED SURG WHITE DEBILITY, FALLS, CLOSED HEAD INJURY
[2022-01-22 16:30] LABS: Magnesium 1.7 mg/dL (1.6-2.6)
[2022-01-22 16:45] LABS: Procalcitonin 0.17 ng/mL (0.00-0.09)
[2022-01-22 18:10] LABS: Bedside Glucose 127 mg/dL (74-106)
[2022-01-22] MEDS: Ceftriaxone 1 GM/50 ML BAG IV (18:31)
[2022-01-22] MEDS: 0.9% Normal Saline 1,000 ML 125 ML IV (18:36)
[2022-01-22 19:01] LABS: Amphetamine Urine VISTA NEGATIVE (<1000 ng/mL); Barbiturate Urine VISTA NEGATIVE (< 200 ng/mL); Benzodiazepine Urine VISTA NEGATIVE (< 200 ng/mL); Cocaine Urine VISTA NEGATIVE (< 300 ng/mL); Ecstacy Urine VISTA NEGATIVE (< 500 ng/mL); Methadone Urine VISTA NEGATIVE (< 300 ng/mL); PCP Urine VISTA NEGATIVE (< 25 ng/mL); THC Urine VISTA NEGATIVE (< 50 ng/mL); Vista UDS pH Range 6
[2022-01-22 19:10] LABS: Hemoglobin A1c 6.5 % (3.8-5.6)
[2022-01-22 19:18] LABS: Thyroid Stim Hormone (TSH) 1.42 uIU/mL (0.358-3.74)
--- NOTE | 2022-01-22 19:29 | CDU_ITS ---
Reason For Study: CVA Rt. Velocities/BP Lt. Velocities/BP Prox CCA 57.5/9.1 cm/sec. Prox CCA 69.6/10.2 cm/sec. Mid CCA 46.5/8 cm/sec. Mid CCA 65.2/10.2 cm/sec. Dist CCA 42.1/8 cm/sec. Dist CCA 57.5/9.1 cm/sec. Prox ICA 33.3/9.1 cm/sec. Prox ICA 41/13.5 cm/sec. Mid ICA 58.6/11.3 cm/sec. Mid ICA 66.3/13.5 cm/sec. Dist ICA 55.3/11.3 cm/sec. Dist ICA 87.2/23.4 cm/sec. Rt. ICA/CCA = 1.26. Lt. ICA/CCA = 1.34. Prox ECA 71.8/12.4 cm/sec. Prox ECA 67.4/8 cm/sec. Rt. Vert. 42.1/11.3 cm/sec. Lt. Vert. 63/12.4 cm/sec. Right Extracranial There is intimal thickening but no significant atherosclerotic plaque noted in the right common carotid artery. There is heterogeneous, irregular atherosclerotic plaque noted in the right internal carotid artery. There is intimal thickening but no significant atherosclerotic plaque noted in the right external carotid artery. Antegrade flow is noted in the right vertebral artery. Left Extracranial There is homogeneous, smooth atherosclerotic plaque noted in the left common carotid artery. There is homogeneous, smooth atherosclerotic plaque noted in the left internal carotid artery. There is intimal thickening but no significant atherosclerotic plaque noted in the left external carotid artery. Antegrade flow is noted in the left vertebral artery. Procedure Carotid Duplex [id number]. This is a Carotid Duplex examination using B-mode, color flow and specral Doppler. The exam was of adequate technical quality. Exam performed portable in patient room. VL/Carotid Duplex Ultrasound Interpretation Summary 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 Performed By: Isha Anna RVT
--- NOTE | 2022-01-22 19:29 | ECHOCS_ITS ---
Reason For Study: CVA Procedure This was a 2D Doppler, Color Flow transthoracic echocardiogram. Contrast injection was performed. Exam performed portable in patient room. Left Ventricle Normal LV size. The estimated ejection fraction is 60 %. Unable to assess diastolic dysfunction. No regional wall motion abnormalities noted. Right Ventricle Normal RV size. Normal systolic function. Atria The left atrium is mildly enlarged. Normal right atrium. No doppler evidence for ASD. Mitral Valve There is moderate mitral annular calcification. There is no mitral valve stenosis. No mitral valve insufficiency. Tricuspid Valve There is no tricuspid stenosis. Unable to estimate RV systolic pressure due to insufficient tricuspid regurgitant envelope. Aortic Valve Trisinus/trileaflet aortic valve. There is no aortic stenosis. Trivial aortic valve insufficiency. Pulmonic Valve There is no pulmonic valvular stenosis. No pulmonic valve insufficiency. Great Vessels Normal aortic root. Pericardium/Pleural No pericardial effusion. Medication Performed a rapid injection of agitated mix of 9 cc saline and 1cc air to assess for atrial septal defect. Diluted definity 2ml given slow IV push to enhance endocardial definition. MMode/2D Measurements & Calculations LVIDd: 4.6 cm IVSd: 1.5 cm Ao root diam: 3.7 cm LVIDs: 2.4 cm LVPWd: 1.4 cm RVDd: 3.1 cm FS: 48.6 % LAV(MOD-bp): 74.3 ml LVAd ap4: 27.5 cm2 SV(MOD-sp4): 59.4 ml LAV(MOD-bp) Indexed: 37.3 ml/m2 LVLd ap4: 7.4 cm LAV(MOD-sp2): 66.1 ml EDV(MOD-sp4): 85.0 ml LAV(MOD-sp4): 63.6 ml EDV(sp4-el): 87.4 ml LVAs ap4: 13.2 cm2 LVLs ap4: 5.8 cm ESV(MOD-sp4): 25.6 ml ESV(sp4-el): 25.2 ml EF(MOD-sp4): 69.8 % EF(sp4-el): 71.2 % SV(sp4-el): 62.2 ml LA A4 area: 22.9 cm2 LA dimension(2D): 4.4 cm RA A4 area: 13.3 cm2 Doppler Measurements & Calculations MV E max elian: 76.2 cm/sec Lat Peak E' Elian: 6.8 cm/sec Med Peak E' Elian: 5.1 cm/sec MV A max elian: 98.5 cm/sec E/E' lat: 11.1 E/E' med: 15.0 MV E/A: 0.77 Ao V2 max: 188.9 cm/sec LV V1 max: 135.1 cm/sec PA V2 max: 131.6 cm/sec Ao max P.3 mmHg LV V1 max P.3 mmHg Ao V2 mean: 127.6 cm/sec Ao mean P.2 mmHg Ao V2 VTI: 38.5 cm TR max elian: 293.0 cm/sec TR max P.3 mmHg ECHO/Echo Complete W/ Contrast Interpretation Summary The estimated ejection fraction is 60 %. The left atrium is mildly enlarged. Unable to assess diastolic dysfunction. Trivial aortic valve insufficiency. Ordering Physician: Esha Jiménez Referring Physician: Elena Mims Performed By: Giuliana Naranjo, QIAN, RVT
[2022-01-22] MEDS: Ammonium Lactate 225 gm Bottle 1 APPLIC TOPICAL (21:35)
[2022-01-22] MEDS: Ketoconazole Cream 1 APPLIC TOPICAL (21:36)
[2022-01-22] MEDS: Hydrocortisone 2.5% Crm 1 APPLIC TOPICAL (21:36)
[2022-01-22] MEDS: Enoxaparin 40 MG/0.4 ML Syringe SC (21:37)
[2022-01-22] MEDS: Insulin Lispro 100 UNIT/ML INSULN.PEN SC (22:00)
[2022-01-22] MEDS: Aspirin 325 MG Tablet PO (22:02)
[2022-01-22] MEDS: Citalopram 20 MG Tablet PO (22:03)
[2022-01-22] MEDS: Acetaminophen 325 MG Tablet 650 MG PO (22:07)
[2022-01-22] MEDS: MELATONIN 3 MG TABLET PO (22:08)
[2022-01-22] MEDS: ALPRAZolam 0.25 MG Tablet PO (22:08)
[2022-01-23] VITALS (11 sets, daily range): BP systolic 139–166; BP diastolic 64–79; PULSE 59–77; RESP 14–20; TEMP 36.2–37.1; O2SAT 91–99; BMI 40.2
[2022-01-23 01:01] LABS: Bedside Glucose 152 mg/dL (74-106)
[2022-01-23] MEDS: 0.9% Normal Saline 1,000 ML 125 ML IV (03:11)
[2022-01-23] MEDS: Alendronate Sodium 70 MG Tablet PO (05:31)
[2022-01-23 05:59] LABS: Absolute Lymphocyte Count 1.13 X10^3/uL (0.83-4.51); Absolute Neutrophil Count 7.4 X10^3/uL (2.0-7.7); Basophil# 0.03 X10^3/uL; Basophil% 0.3 % (0-1); Eosinophil# 0.38 X10^3/uL; Eosinophils% 3.7 % (0-5); Hematocrit 28.6 % (37-47); Hemoglobin 8.7 g/dL (12.0-15.0); Lymphocyte # 1.13 X10^3/ul (0.83-4.51); Lymphocyte % 11.1 % (19-41); Mean Corp Hgb Conc 30.4 g/dL (32-36); Mean Corpuscular Hgb 23.6 pg (27.0-32.0); Mean Corpuscular Volume 77.7 fL (81-99); Mean Platelet Vol. 10.3 fl (6.2-12.0); Monocyte# 1.17 X10^3/uL; Monocyte% 11.5 % (0-10); NRBC Flagged by Analyzer 0 % (0-5); Neutrophil # 7.41 X10^3/uL (2.7-7.7); Neutrophil % 73.1 % (47-70); Platelet Count 287 K/mm3 (150-450); RBC Distribution Width CV 16.8 % (11.6-14.6); RBC Distribution Width SD 47.8 fl (35.1-43.9); Red Blood Count 3.68 M/mm3 (4.2-5.4); White Blood Count 10.2 K/mm3 (4.4-11.0)
[2022-01-23 06:31] LABS: ALB/GLOB Ratio 0.6 RATIO (0.9-2.4); AST(SGOT) 26 U/L (15-37); Alanine Aminotransfer ALT/SGPT 13 U/L (13-56); Albumin, Serum 2.2 g/dL (3.2-5.0); Alkaline Phosphatase 66 U/L (45-117); Anion Gap 6 (5-15); BUN 15 mg/dL (7-18); CPK Total, Creatine Kinase 418 U/L (26-192); Chloride 110 mmol/L (98-107); Cholesterol 82 mg/dL (200); Creatinine, Serum 1.15 mg/dL (0.55-1.02); EST Glomerular Filtration Rate 49 mL/min (>60); Est Glom Filt Rate - Afr Amer 59 mL/min (>60); Estimated Creatinine Clearance 33.43 ml/min; Globulin 3.7 g/dL (2.2-4.2); Glucose 124 mg/dL (74-106); High Density Lipoprotein 45 mg/dL; Protein, Total 5.9 g/dL (6.4-8.2); Sodium Level 140 mmol/L (136-145); Triglycerides 76 mg/dL; Very Low Density Lipoprotein 15 mg/dL (5-40)
--- NOTE | 2022-01-23 06:32 | PN.HOSP_ITS ---
Subjective Subjective Patient overnight with various NIH stroke scale numbers but difficult examination as patient has periods where she is completely appropriate and oriented and her speech is normal but then will have nonsensical expressive moments per discussion with the overnight staff. Patient this morning upon evaluation is completely oriented and appropriate and notes feeling improved and states that her intertrigo is less irritating and less painful with current interventions. Discussed plan of care which included MRI today and patient was amenable. Patient denies fevers, chills, nausea, emesis, abdominal pain, chest pain or dyspnea. Objective Data Objective Data Vital Signs: Vital Signs Temp Pulse Resp BP Pulse Ox 98.1 F 68 20 H 143/79 H 97 01/23/22 03:45 01/23/22 03:45 01/23/22 03:45 01/23/22 03:45 01/23/22 03:45 Oxygen Flow Rate (L/min) 2 Oxygen Delivery Method Room Air Weight: 212 lb 15.465 oz Body Mass Index (BMI) 40.2 Intake & Output: Intake and Output for Last 24 Hours 01/21/22 01/22/22 01/23/22 23:59 23:59 23:59 Intake Total 1158.33 / 1218.33 1071.25 / 1071.25 Output Total 980 / 1655 1075 / 1075 Balance 178.33 / -436.67 -3.75 / -3.75 Lab / Micro Data Result Diagrams: 01/23/22 05:18 01/23/22 05:18 Labs: Laboratory Results - last 24 hr 01/22/22 13:00: TSH 1.42 01/22/22 13:45: Urine Color Yellow, Urine Clarity Clear, Urine pH 8.0, Ur Specific [place] 1.010, Urine Protein 15 H, Urine Glucose (UA) Normal, Urine Ketones Negative, Urine Occult Blood 50 H, Urine Nitrite Negative, Urine Bilirubin Negative, Urine Urobilinogen Normal, Ur Leukocyte Esterase Negative, Urine RBC 0-5 SEEN, Urine WBC 0 SEEN, Ur Squamous Epith Cells 0 SEEN, Urine Bacteria 0 SEEN, Urine Mucus 0 SEEN 01/22/22 13:45: Urine Opiates Screen NEGATIVE, Urine Methadone Screen NEGATIVE, Ur Barbiturates Screen NEGATIVE, Ur Phencyclidine Scrn NEGATIVE, Ur Amphetamines Screen NEGATIVE, MDMA (Ecstasy) Screen NEGATIVE, U Benzodiazepines Scrn NEGATIVE, Urine Cocaine Screen NEGATIVE, U Cannabinoids Screen NEGATIVE, Ur Drug Screen Comment 01/22/22 13:50: WBC 16.6 H, RBC 4.32, Hgb 10.1 L, Hct 33.6 L, MCV 77.8 L, MCH 23.4 L, MCHC 30.1 L, RDW Std Deviation 47.2 H, RDW Coeff of [place] 16.5 H, Plt Count 361, MPV 9.5, Immature Gran % (Auto) 0.400, Neut % (Auto) 81.5 H, Lymph % (Auto) 6.5 L, [place] % (Auto) 10.8 H, Eos % (Auto) 0.6, Baso % (Auto) 0.2, Absolute Neuts (auto) 13.5 H, Absolute Lymphs (auto) 1.08, Nucleated RBC % 0, Diff Path Review February01/22/22 13:50: Sodium 140, Potassium 4.2, Chloride 105, Carbon Dioxide 29.0, Anion Gap 6, BUN 17, Creatinine 1.43 H, Estim Creat Clear Calc 26.88, Est GFR (MDRD) Af Amer 46 L, Est GFR (MDRD) Non-Af 38 L, BUN/Creatinine Ratio 11.9, Glucose 120 H, Calcium 9.2, Total Bilirubin 1.10 H, AST 16, ALT 16, Alkaline Phosphatase 88, Total Creatine Kinase 409 H, Total Protein 7.7, Albumin 3.1 L, Globulin 4.6 H, Albumin/Globulin Ratio 0.7 L 01/22/22 13:50: Hemoglobin A1c 6.5 H 01/22/22 15:37: Magnesium 1.7 01/22/22 15:37: Procalcitonin 0.17 H 01/22/22 18:07: POC Glucose 127 H 01/22/22 21:30: POC Glucose 152 H 01/23/22 05:18: WBC 10.2, RBC 3.68 L, Hgb 8.7 L, Hct 28.6 L, MCV 77.7 L, MCH 23.6 L, MCHC 30.4 L, RDW Std Deviation 47.8 H, RDW Coeff of [place] 16.8 H, Plt Count 287, MPV 10.3, Immature Gran % (Auto) 0.300, Neut % (Auto) 73.1 H, Lymph % (Auto) 11.1 L, [place] % (Auto) 11.5 H, Eos % (Auto) 3.7, Baso % (Auto) 0.3, Absolute Neuts (auto) 7.4, Absolute Lymphs (auto) 1.13, Nucleated RBC % 0 01/23/22 05:18: Sodium 140, Potassium 4.0, Chloride 110 H, Carbon Dioxide 24.0, Anion Gap 6, BUN 15, Creatinine 1.15 H, Estim Creat Clear Calc 33.43, Est GFR (MDRD) Af Amer 59 L, Est GFR (MDRD) Non-Af 49 L, BUN/Creatinine Ratio 13.0, Glucose 124 H, Calcium 8.0 L, Total Bilirubin 0.80, AST 26, ALT 13, Alkaline Phosphatase 66, Total Creatine Kinase 418 H, Total Protein 5.9 L, Albumin 2.2 L, Globulin 3.7, Albumin/Globulin Ratio 0.6 L, Triglycerides 76, Cholesterol 82, LDL Cholesterol 22, VLDL Cholesterol 15, HDL Cholesterol 45 Radiography Diagnostic Testing: Radiology Impression Brain CT 01/22/22 13:20 IMPRESSION: No acute intracranial or calvarial abnormality. There is no major interval change. Electronically Signed: Jose Manuel Pascual DO at 14:53 EDT Reading Location ID and State: [facility] Tel [phone], Service support , Cervical Spine CT 01/22/22 13:20 IMPRESSION: 1. Limited study due to motion artifact. Degenerative changes cervical spine with no visualized fracture or subluxation. If there is continued concern for spinal cord or nerve root abnormality, MRI with sedation is recommended. Electronically Signed: Jose Manuel Pascual DO at 14:49 EDT Reading Location ID and State: [facility] Tel [phone], Service support , ADDENDUM: 01/22/22 1459 Chest X-Ray 01/22/22 13:20 IMPRESSION: No acute cardiopulmonary disease or major interval change. Electronically Signed: Jose Manuel Pascual DO at 14:55 EDT Reading Location ID and State: [facility] Tel [phone], Service support , Facial/Sinus 01/22/22 13:20 IMPRESSION: Normal unenhanced CT of the facial bones. Electronically Signed: Jose Manuel Pascual DO at 14:52 EDT Reading Location ID and State: [facility] / [place] Tel [phone], Service support , Physical Exam Narrative Physical Examination: General: Awake, alert, oriented x >3 including self, place, even gave correct month and year, currently does not appear to have any expressive aphasia but this is been intermittent since admission. Skin: Normal color, normal turgor, no icterus, no cyanosis except significant very staged ecchymoses especially to the face, significantly improved appearance of patient's intertrigo although still notably present but less beefy red in appearance and not moist HEENT: AT/NC, EOMI, PERRLA, improved MMM Lungs: Diminished, greater bases, appropriate effort, no rales, ronchi or wheezing. Heart: Currently regular rate and rhythm; no gallop, rub audible. Abdomen: Soft, morbidly obese, NTTP, ND, normalized BS, abdominal fold intertrigo improved in appearance. Extremities: No cyanosis, no clubbing, chronic lymphedema. Neurological: Patient awake, alert, oriented as noted, cognitive function suspect baseline reduced with suspected underlying dementia component/cognitive impairment; pupils equally reactive to light and accommodation, cranial nerves II-XII grossly normal, moving all 4 extremities, no focal deficits, strength mildly improved, moderately to severely global decreased. Psychiatric: Affect appears more interactive, no acute evidence of depressive or anxiety feelings. Assessment & Plan Assessment/Plan (1) Fall: QUALIFIERS: Encounter type: initial encounter Qualified Code(s): W19.XXXA - Unspecified fall, initial encounter PLAN: The patient is 76 y/o F w/ PMHx: Anxiety and Depression, Morbid Obesity, Chronic anemia/Fe deficiency anemia, HTN, HLD, OA, Diabetes mellitus type II, CKD stage III unclear subtype who presents to the [facility] ED on 01/22/22 with history of recent falls including on 01/17/2022 with a evaluation at that time with no acute findings however patient represents now secondary to recu rrent fall with no prodrome and no loss of consciousness but extremely debilitated and living alone laying on the floor for nearly 5 hours until she was able to get help. #1. Expressive aphasia concerning for CVA: Given onset following admission expressive aphasia transition to PCU, will maintain on monitor, Will obtain MRI Brain, MRA Head and carotid ultrasound, ECHO, PT/OT/Speech/Nutrition evaluation per protocol. Will consult Neurology for evaluation once further imaging and evaluation obtain. Will allow permissive HTN with hold on her current hypertensive regimens with as needed agents per stroke order set, maintain on asa, statin w/ AM FLP obtained, fall precautions. Mag 1.7, TSH 1.42, HgbA1c 6.5%. #2. Debility, failure to thrive in adult with mechanical falls, multifactorial: Will maintain on fall precautions, continued evaluation as noted #1, CBC with mild WBC elevation with left shift but chest x-ray and urinalysis are no marked appearing and will attempt topicals as well as IV rocephin in case superimposed bacterial infection on top of intertrigo as noted, continue judicious fluids, PT/OT/case management consultations for discharge planning. #3. Mild rhabdomyolysis: Patient with history of being down on the ground secondary to debility and fall x5 hours, total creatinine kinase is only mildly elevated at 409, hydrated overnight, 01/23/22 418, will continue to trend. #4. Intertrigo with Possible Superimposed bacterial infection: Initiated patient on aggressive ketoconazole regimen, zinc oxide PRN for barrier although may add oral diflucan if necessary in addition to IV rocephin for potential superimposed bacterial infection also. Procalcitonin 0.17. Continue routine cleansing, barrier care, keeping regions dry. #5. Hypertension: Temporarily holding home lasix, lisinopril, metoprolol given permissive HTN, add back once appropriate. #6. Hyperlipidemia: We will continue patient on statin therapy. FLP obtained. #7. Diabetes mellitus type II: Hold oral home regimen, ADA diet, accu checks w/ ISS. HgBA1c 6.5%. #8. Chronic anemia, iron deficiency: Admission hemoglobin 10.1, MCV 77.8, baseline 9-10, 01/23/22 Hgb 8.7, continue iron supplementation and trending #9. Chronic Kidney Disease Stage III, unclear subtype: Admission BUN/Cr 17/1.43, baseline renal function 1.2-1.4, 01/23/22 BUN/Cr 15/.15. #10. Morbid Obesity: Weight loss and lifestyle changes encouraged. #11. Anxiety and depression: We will continue patient home citalopram regimen. #12. DVT prophylaxis: SCDs, Lovenox. #13. CODE status: Patient HCPOA is Letha her great niece she notes and living will is currently in place. Full Code. Charges/Coding Visit Charges Inpatient E&M: 31300 Subs Hosp L2
[2022-01-23 06:41] LABS: Bedside Glucose 120 mg/dL (74-106)
[2022-01-23] MEDS: Folic Acid 1 MG Tablet PO (08:30)
[2022-01-23] MEDS: Aspirin 81 MG TAB.CHEW PO (08:31)
[2022-01-23] MEDS: Citalopram 20 MG Tablet PO (08:31)
[2022-01-23] MEDS: Hydrocortisone 2.5% Crm 1 APPLIC TOPICAL ×2 (08:32→21:17)
[2022-01-23] MEDS: Ketoconazole Cream 1 APPLIC TOPICAL ×2 (08:33→21:17)
[2022-01-23] MEDS: Ammonium Lactate 225 gm Bottle 1 APPLIC TOPICAL ×2 (08:34→21:17)
[2022-01-23] MEDS: Enoxaparin 40 MG/0.4 ML Syringe SC ×2 (08:34→21:16)
--- NOTE | 2022-01-23 09:20 | MRI_ITS ---
STUDY: MRA OF THE HEAD WITHOUT CONTRAST REASON FOR EXAM: Female, 76 years old. CVA TECHNIQUE: 3-D [id number] (TOF) imaging was performed with MIPs. The study was performed unenhanced. COMPARISON: None. FINDINGS: Normal bilateral petrous carotid arteries. Normal right cavernous carotid artery with a normal supraclinoid bifurcation. Normal left cavernous carotid artery with a normal supraclinoid bifurcation. There is hypoplastic development of the right A1 segment of the anterior cerebral arteries with an atretic but intact artery. Normal left A1 segments of the anterior cerebral artery. Normal intact anterior communicating artery (ACOM). Normal bilateral A2 segments of the anterior cerebral arteries. Normal right M1 and M2 segments of the middle cerebral arteries, with a normal M1 bifurcation. Normal left M1 and M2 segments of the middle cerebral arteries, with a normal M1 bifurcation. 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 Normal left posterior communicating artery (PCOM). Normal bilateral vertebral arteries. Normal basilar artery with a normal basilar bifurcation. The visualized bilateral superior cerebellar (SCA) arteries are normal. Normal bilateral P1, P2 and visualized P3 segments of the posterior cerebral arteries. There is no demonstrated aneurysm of the hoopa of [place]. There is no major vessel occlusion or hemodynamically significant stenosis. There is no demonstrated abnormality of the visualized brain. MRI/MRA Head ONLY without Contrast IMPRESSION: Normal MRA of the head Electronically Signed: Layo Calles MD at 13:21 EDT ,
--- NOTE | 2022-01-23 09:20 | MRI_ITS ---
EXAM: MR HEAD WITHOUT INTRAVENOUS CONTRAST CLINICAL INDICATION: CVA TECHNIQUE: Multiplanar and multisequence MR images of the brain were obtained without intravenous contrast. This report was created using [employer] report generation technology. COMPARISON: CT head without contrast 01/22/2022. FINDINGS: BRAIN AND EXTRA-AXIAL SPACES: No diffusion restriction to suspect acute or subacute ischemic infarct. No intra- or extra-axial hemorrhage. No intracranial mass or mass effect. Posterior fossa structures are unremarkable. Ventricles are appropriate for age. No hydrocephalus. Basal cisterns are patent. SELLA: Unremarkable. Normal sella turcica, pituitary gland, infundibular stalk, optic chiasm and hypothalamus. AUDITORY SYSTEM: Unremarkable. The internal auditory canals are patent. BONES/JOINTS: Unremarkable. No discrete lytic or blastic abnormalities. SINUSES: Unremarkable as visualized. Clear. MASTOID AIR CELLS: Unremarkable as visualized. Clear. ORBITS: Unremarkable as visualized. Both globes, extraocular muscles, optic nerves and retrobulbar fat appear unremarkable. VASCULATURE: Unremarkable as visualized. Normal flow voids in the major intracranial circulation. MRI/Brain without Contrast IMPRESSION: No MRI evidence of acute or subacute ischemic infarct or acute intracranial abnormality and no intracranial mass. Electronically Signed: Bud Long MD at 13:57 EDT ,
[2022-01-23] MEDS: LORazepam 2 MG/ML Syringe IV (10:51)
[2022-01-23] MEDS: Ceftriaxone 1 GM/50 ML BAG IV (11:49)
[2022-01-23] MEDS: Insulin Lispro 100 UNIT/ML INSULN.PEN SC ×2 (12:00→17:07)
[2022-01-23 12:21] LABS: Bedside Glucose 168 mg/dL (74-106)
[2022-01-23] MEDS: Ferrous Sulfate 325 MG Tablet PO (17:07)
[2022-01-23 17:26] LABS: Bedside Glucose 150 mg/dL (74-106)
[2022-01-23 21:46] LABS: Bedside Glucose 146 mg/dL (74-106)
[2022-01-24] VITALS (12 sets, daily range): BP systolic 145–185; BP diastolic 63–105; PULSE 69–91; RESP 14–20; TEMP 36.6–37.3; O2SAT 93–96; BMI 40.2
[2022-01-24 05:54] LABS: Absolute Lymphocyte Count 1.04 X10^3/uL (0.83-4.51); Absolute Neutrophil Count 6.8 X10^3/uL (2.0-7.7); Basophil# 0.02 X10^3/uL; Basophil% 0.2 % (0-1); Eosinophils% 6.2 % (0-5); Hematocrit 29.1 % (37-47); Hemoglobin 8.8 g/dL (12.0-15.0); Lymphocyte # 1.04 X10^3/ul (0.83-4.51); Lymphocyte % 10.7 % (19-41); Mean Corp Hgb Conc 30.2 g/dL (32-36); Mean Corpuscular Hgb 23.5 pg (27.0-32.0); Mean Corpuscular Volume 77.8 fL (81-99); Mean Platelet Vol. 9.9 fl (6.2-12.0); Monocyte# 1.19 X10^3/uL; Monocyte% 12.3 % (0-10); NRBC Flagged by Analyzer 0 % (0-5); Neutrophil # 6.81 X10^3/uL (2.7-7.7); Neutrophil % 70.3 % (47-70); Platelet Count 264 K/mm3 (150-450); RBC Distribution Width CV 16.8 % (11.6-14.6); RBC Distribution Width SD 47.6 fl (35.1-43.9); Red Blood Count 3.74 M/mm3 (4.2-5.4); White Blood Count 9.7 K/mm3 (4.4-11.0)
[2022-01-24 06:30] LABS: ALB/GLOB Ratio 0.6 RATIO (0.9-2.4); AST(SGOT) 19 U/L (15-37); Alanine Aminotransfer ALT/SGPT 14 U/L (13-56); Albumin, Serum 2.3 g/dL (3.2-5.0); Alkaline Phosphatase 69 U/L (45-117); Anion Gap 4 (5-15); BUN 15 mg/dL (7-18); CPK Total, Creatine Kinase 162 U/L (26-192); Calcium,Total 8.2 mg/dL (8.5-10.1); Chloride 106 mmol/L (98-107); Creatinine, Serum 1.25 mg/dL (0.55-1.02); EST Glomerular Filtration Rate 44 mL/min (>60); Est Glom Filt Rate - Afr Amer 54 mL/min (>60); Estimated Creatinine Clearance 29.34 ml/min; Globulin 3.9 g/dL (2.2-4.2); Glucose 123 mg/dL (74-106); Potassium 3.9 mmol/L (3.5-5.1); Protein, Total 6.2 g/dL (6.4-8.2); Sodium Level 139 mmol/L (136-145)
[2022-01-24 06:46] LABS: Bedside Glucose 123 mg/dL (74-106)
[2022-01-24] MEDS: Ammonium Lactate 225 gm Bottle 1 APPLIC TOPICAL ×2 (08:46→22:07)
[2022-01-24] MEDS: Hydrocortisone 2.5% Crm 1 APPLIC TOPICAL ×2 (08:47→22:07)
[2022-01-24] MEDS: Folic Acid 1 MG Tablet PO (08:48)
[2022-01-24] MEDS: Ketoconazole Cream 1 APPLIC TOPICAL (08:48)
[2022-01-24] MEDS: Aspirin 81 MG TAB.CHEW PO (08:49)
[2022-01-24] MEDS: Enoxaparin 40 MG/0.4 ML Syringe SC ×2 (08:50→22:07)
--- NOTE | 2022-01-24 08:51 | TELEMED_ITS ---
[facility] Telemed has confirmed receipt of a request for visit. This document confirms receipt of the order initiating the consult. To find the results of the consultation, please view the patient's reports for the scanned Telemed Consult.
[2022-01-24] MEDS: Citalopram 20 MG Tablet PO (08:58)
[2022-01-24] MEDS: Ceftriaxone 1 GM/50 ML BAG IV (09:01)
--- NOTE | 2022-01-24 10:30 | CASEMGMT ---
Per nursing, pt is A/Ox4 at this time. This RN CM to room with MURRAY form, explanation done-pt voices understanding, and signed MURRAY form at this time. Original to chart and copy to pt. Pt awaiting therapy evals but states plan is to go home at this time. Pt with ecchymosis to most of face d/t multiple recent falls at home. CM to follow. SStaten RN CM
[2022-01-24] MEDS: Insulin Lispro 100 UNIT/ML INSULN.PEN SC ×2 (12:07→22:08)
[2022-01-24] MEDS: Nystatin Powder 15gm Bottle 1 APPLIC TOPICAL ×2 (12:11→22:07)
[2022-01-24 12:16] LABS: Bedside Glucose 157 mg/dL (74-106)
--- NOTE | 2022-01-24 15:51 | CASEMGMT ---
TRI received a call from Samir at [facility]. She asked if SW had any concerns with patient. TRI let her know that according to the chart patient was disheveled when she came in, her home was in disarray, and they were concerned she could not care for herself at home. TRI let Samir know that patient is not going to qualify for jail placement. Samir asked if patient is eligible for Passport services. TRI told her SW will talk with patient about this. Samir said if TRI does not talk with her she will follow up with patient at discharge. Khushi Cope ECONOMIC ANALYST JANENE
--- NOTE | 2022-01-24 16:35 | PCM.PN.HOSP ---
Subjective Subjective Patient has not yet gotten out of bed since admission. Awaiting therapy services to ascertain whether or not she needs therapy and placement. Patient states she has had several falls with the most recently being a mechanical fall of her stool in her kitchen at night. There is concerned that her home was somewhat disheveled and unorganized. Objective Data Objective Data Vital Signs: Vital Signs Temp Pulse Resp BP Pulse Ox 97.8 F 74 16 171/82 H 95 01/24/22 14:30 01/24/22 14:30 01/24/22 14:30 01/24/22 14:30 01/24/22 14:30 Oxygen Flow Rate (L/min) 2 Oxygen Delivery Method Room Air Weight: 96.7 kg Body Mass Index (BMI) 40.2 Intake & Output: Intake and Output for Last 24 Hours 01/22/22 01/23/22 01/24/22 23:59 23:59 23:59 Intake Total 1158.33 / 1218.33 2565.83 / 2565.83 250 / 250 Output Total 980 / 1655 2125 / 2375 1500 / 1500 Balance 178.33 / -436.67 440.83 / 190.83 -1250 / -1250 Lab / Micro Data Result Diagrams: 01/24/22 05:20 01/24/22 05:20 Labs: Laboratory Results - last 24 hr 01/23/22 17:05: POC Glucose 150 H 01/23/22 21:15: POC Glucose 146 H 01/24/22 05:20: WBC 9.7, RBC 3.74 L, Hgb 8.8 L, Hct 29.1 L, MCV 77.8 L, MCH 23.5 L, MCHC 30.2 L, RDW Std Deviation 47.6 H, RDW Coeff of [place] 16.8 H, Plt Count 264, MPV 9.9, Immature Gran % (Auto) 0.300, Neut % (Auto) 70.3 H, Lymph % (Auto) 10.7 L, [place] % (Auto) 12.3 H, Eos % (Auto) 6.2 H, Baso % (Auto) 0.2, Absolute Neuts (auto) 6.8, Absolute Lymphs (auto) 1.04, Nucleated RBC % 0 01/24/22 05:20: Sodium 139, Potassium 3.9, Chloride 106, Carbon Dioxide 29.0, Anion Gap 4 L, BUN 15, Creatinine 1.25 H, Estim Creat Clear Calc 29.34, Est GFR (MDRD) Af Amer 54 L, Est GFR (MDRD) Non-Af 44 L, BUN/Creatinine Ratio 12.0, Glucose 123 H, Calcium 8.2 L, Total Bilirubin 0.50, AST 19, ALT 14, Alkaline Phosphatase 69, Total Creatine Kinase 162, Total Protein 6.2 L, Albumin 2.3 L, Globulin 3.9, Albumin/Globulin Ratio 0.6 L 01/24/22 06:37: POC Glucose 123 H 01/24/22 12:06: POC Glucose 157 H Radiography Diagnostic Testing: Radiology Impression Echocardiogram 01/22/22 19:29 Interpretation Summary The estimated ejection fraction is 60 %. The left atrium is mildly enlarged. Unable to assess diastolic dysfunction. Trivial aortic valve insufficiency. Ordering Physician: Esha Jiménez Referring Physician: Elena Mims Performed By: Giuliana Naranjo, QIAN, RVT Physical Exam Const alert, oriented x3, no apparent distress and well nourished Constitutional Narrative: Morbidly obese white female lying in bed, appears comfortable nontoxic Nutritional Appearance: morbidly obese HEENT moist oral mucous membranes HEENT Narrative: Patient with significant ecchymosis on her face around both eyes and predominantly on the right side of her face with various stages of healing, dentition is poor, Mallampati is 3 Head and Scalp: normocephalic Eyes PERRL, EOMs intact bilaterally and conjunctivae normal Resp normal respiratory effort, no retractions, no use of accessory muscles and clear to auscultation bilaterally Auscultation: Negative for crackles, rales, rhonchi or wheezes Cardio regular rate, regular rhythm, S1 normal heart sound, S2 normal heart sound, no murmurs, no rub, no gallops, no clicks and no JVD GI normal to inspection, nondistended, normoactive bowel sounds, soft to palpation, non-tender and non-distended Extremity no clubbing, cyanosis or edema Peripheral Pulses: Yes pulses 2+ throughout Skin skin turgor normal, no jaundice, no petechiae and no mottling Neuro oriented x3, CN's II-XII intact bilaterally, moves all extremities and no focal motor deficits Neuro Narrative: generalized weakness proximal greater than distal Sensorium / Orientation: awake and alert Speech: speech normal Psych affect normal Assessment & Plan Assessment/Plan (1) Periorbital hematoma: (2) Fall: QUALIFIERS: Encounter type: initial encounter Qualified Code(s): W19.XXXA - Unspecified fall, initial encounter (3) Expressive aphasia: (4) Debility: (5) Rhabdomyolysis: (6) Candidal intertrigo: PLAN: Mechanical fall secondary to debility -Continue fall precautions -Patient was seen by therapy services and they do not feel that she needs any placement at this time -We will try to ascertain home health services for her at discharge -Continue therapy while she is here -Encourage mobility Expressive aphasia -Symptoms have resolved -NIH has remained 0 -MRI of the head is negative -MRA is negative -Echo was performed and showed an EF of 60% with a mildly left enlarged atrium and trivial aortic valve insufficiency -Carotid Dopplers have been ordered and are pending -Neurology has evaluated the patient -EEG was negative -Discussed the case with neuro and they recommended neurocognitive evaluation as an outpatient -Symptoms recur patient may need prolonged EEG study which would need to be done at at tertiary center Mild rhabdomyolysis -Resolving with gentle hydration -No further need to trend CK -Renal function is at baseline Intertriginous terry -Continue aggressive ketoconazole regimen and zinc oxide as needed for barrier -Wound care following Hypertension -Restart home medications as no need for continued permissive hypertension since MRI was negative Hyperlipidemia -Continue home statin DM-2 -Sugars are controlled with most recent hemoglobin A1c months he noted to be 6.5 -Continue ADA diet -Continue Accu-Cheks -SSI Chronic microcytic anemia secondary to iron deficiency -Patient is on home supplemental iron -Continue home iron dosing -Hemoglobin remained stable Periorbital hematoma -Secondary to fall -Appears to be healing -Continue therapy services CKD stage IIIb -Serum creatinine appears to be at baseline -Baseline serum creatinine appears to be 1.2-1.4 Morbid obesity -Recommend weight loss -Complicates treatment, prognosis, outcomes Anxiety/depression -Continue home citalopram DVT prophylaxis -Continue Lovenox -Continue SCDs CODE STATUS -Full code Charges/Coding Visit Charges Inpatient E&M: 88640 Subs Hosp L2
[2022-01-24] MEDS: Ferrous Sulfate 325 MG Tablet PO (17:25)
[2022-01-24 17:41] LABS: Bedside Glucose 138 mg/dL (74-106)
[2022-01-24] MEDS: Metoprolol(XL)Succ 100 MG Tablet PO (18:43)
[2022-01-24] MEDS: Lisinopril 10 MG Tablet PO ×2 (18:43→22:07)
[2022-01-24] MEDS: Atorvastatin Calcium 80 MG Tablet PO (22:07)
[2022-01-24 22:31] LABS: Bedside Glucose 152 mg/dL (74-106)
[2022-01-25] VITALS (7 sets, daily range): BP systolic 167–177; BP diastolic 69–74; PULSE 64–74; RESP 14–18; TEMP 36.5–37.1; O2SAT 94–99; BMI 40.2
[2022-01-25] MEDS: MELATONIN 3 MG TABLET PO (02:31)
[2022-01-25 05:46] LABS: Absolute Lymphocyte Count 0.91 X10^3/uL (0.83-4.51); Absolute Neutrophil Count 6.7 X10^3/uL (2.0-7.7); Basophil# 0.02 X10^3/uL; Basophil% 0.2 % (0-1); Eosinophil# 0.54 X10^3/uL; Eosinophils% 5.5 % (0-5); Hematocrit 30.3 % (37-47); Hemoglobin 9.4 g/dL (12.0-15.0); Lymphocyte # 0.91 X10^3/ul (0.83-4.51); Lymphocyte % 9.2 % (19-41); Mean Corpuscular Hgb 23.8 pg (27.0-32.0); Mean Corpuscular Volume 76.7 fL (81-99); Monocyte# 1.61 X10^3/uL; Monocyte% 16.3 % (0-10); NRBC Flagged by Analyzer 0 % (0-5); Neutrophil # 6.74 X10^3/uL (2.7-7.7); Neutrophil % 68.4 % (47-70); POSITIVE DIFFERENTIAL YES; Platelet Count 288 K/mm3 (150-450); RBC Distribution Width CV 16.6 % (11.6-14.6); RBC Distribution Width SD 46.2 fl (35.1-43.9); Red Blood Count 3.95 M/mm3 (4.2-5.4); White Blood Count 9.9 K/mm3 (4.4-11.0)
[2022-01-25 05:55] LABS: Differential Indicated SCAN CRITERIA MET
[2022-01-25 06:10] LABS: Anion Gap 6 (5-15); BUN 15 mg/dL (7-18); BUN/Creat Ratio 12.5 RATIO (10-20); Calcium,Total 8.6 mg/dL (8.5-10.1); Chloride 103 mmol/L (98-107); EST Glomerular Filtration Rate 47 mL/min (>60); Est Glom Filt Rate - Afr Amer 56 mL/min (>60); Estimated Creatinine Clearance 30.57 ml/min; Glucose 143 mg/dL (74-106); Potassium 3.6 mmol/L (3.5-5.1); Sodium Level 138 mmol/L (136-145)
[2022-01-25 07:01] LABS: Bedside Glucose 146 mg/dL (74-106)
[2022-01-25 07:03] LABS: Differential Comment SCANNED
[2022-01-25] MEDS: Lisinopril 10 MG Tablet PO (08:50)
[2022-01-25] MEDS: Metoprolol(XL)Succ 100 MG Tablet PO (08:50)
[2022-01-25] MEDS: 0.9% Saline Lock 10 ML Syringe IV (08:50)
[2022-01-25] MEDS: Folic Acid 1 MG Tablet PO (08:50)
[2022-01-25] MEDS: Aspirin 81 MG TAB.CHEW PO (08:50)
[2022-01-25] MEDS: Citalopram 20 MG Tablet PO (08:50)
--- NOTE | 2022-01-25 10:15 | CASEMGMT ---
DEBRA GOLD assessment: Face to Face with patient for initial transition planning/care coordination assessment. DEBRA GOLD introduced self and role at [facility], pt voices understanding and consents to assessment. Pt is sitting up in chair in no distress on room air. Pt is A/Ox4 and answers all questions appropriately. Care providers, pharmacy, and demographics verified. Presentation: Pt states fall Monday and today, hit her head, no LOC-pt unable to get up on own Admitting dx: Falls, FTT PCP: Felicita Specialists: Cosmetician Preferred [facility]acy: [facility] Insurance: AeR Prescription Benefit: AeR Living Will/HPOA: Pt has LW/HPOA and is aware that they are on file at [facility]. Pt's niece, Letha Seth, is HPOA. LNOK: Letha Seth, niece/HPOA Living Arrangements: Pt lives alone in 1 story apt with no steps in and states no concerns at home. Pt is independent with ADL's. Transportation: Pt drives self and states no transportation concerns. DME/HHC: Pt has the following DME: quad cane, WW, rollator, raised toilet seat, and lift chair. Pt states no need for any further DME. Pt states has had HHC in the past but has not been to SNF. Pt is agreeable to C for SN, PT/OT and was provided a list of HHC providers including quality and resource use data and consistent with the pt's preferred geographic region, medical needs, and insurance network. Pt states no concerns with going home at time of discharge. Pt is retired. Pt states does not smoke cigarettes or drink ETOH. Pt states no further concerns/needs. CM to follow for HHC choice and any further discharge planning/needs. Advised pt to ask for CM if any further questions/concerns/needs arise, voices understanding. Pt Goal: Home Plan: Home w/ HHC [place]en DEBRA GOLD
[2022-01-25] MEDS: Enoxaparin 40 MG/0.4 ML Syringe SC (10:27)
[2022-01-25] MEDS: Nystatin Powder 15gm Bottle 1 APPLIC TOPICAL (10:27)
[2022-01-25] MEDS: Ammonium Lactate 225 gm Bottle 1 APPLIC TOPICAL (10:28)
[2022-01-25] MEDS: Hydrocortisone 2.5% Crm 1 APPLIC TOPICAL (10:28)
[2022-01-25] MEDS: Ceftriaxone 1 GM/50 ML BAG IV (10:40)
--- NOTE | 2022-01-25 10:45 | CASEMGMT ---
Addendum entered by Isha Swanson 01/25/22 11:26: Call back from Linda at [facility] and they can accept pt with SOC 01/27/22. Pt aware and info placed in d/c. Fanny RICHARDSON CM Original Note: This RN CM back to room and after perusing the [facility] list provided, pt states she would like [facility] for SN, PT/OT. Call to Linda at [facility] to notify of referral, voices understanding. Plan is to d/c pt today. Fanny RICHARDSON CM
[2022-01-25] MEDS: Insulin Lispro 100 UNIT/ML INSULN.PEN SC (11:25)
[2022-01-25 11:51] LABS: Bedside Glucose 198 mg/dL (74-106)
--- NOTE | 2022-01-25 12:29 | PCM.DC.SUM ---
Providers Date of Admission: 01/22/22 Date of Discharge: 01/25/22 Primary Care Physician: Dr. Elena Mims DO Reason For Visit: FALLS, FTT ADULT Diagnosis Discharge Diagnosis (1) Periorbital hematoma: Status: Inactive Code(s): H05.239 - Hemorrhage of unspecified orbit (2) Fall: Status: Inactive Code(s): W19.XXXA - Unspecified fall, initial encounter Qualifiers: Encounter type: initial encounter Qualified Code(s): W19.XXXA - Unspecified fall, initial encounter (3) Expressive aphasia: Status: Acute Code(s): R47.01 - Aphasia (4) Debility: Status: Acute Code(s): R53.81 - Other malaise (5) Rhabdomyolysis: Status: Acute Code(s): M62.82 - Rhabdomyolysis (6) Candidal intertrigo: Status: Acute Code(s): B37.2 - Candidiasis of skin and nail Medications at Discharge Home Medications folic acid 1 mg PO DAILY@0800 01/21/17 metoprolol succinate [Toprol XL] 100 mg PO DAILY 01/21/17 rosuvastatin [Crestor] 40 mg PO MOWEFR 01/21/17 Tresiba FlexTouch U-200 5 units SQ DAILY 03/05/19 Trulicity 2 mg SQ FR 03/05/19 acetaminophen [Tylenol 8 Hour] 650 mg PO PRN PRN 03/05/19 alendronate 70 mg PO FAUSTIN 03/05/19 calcium carbonate-vitamin D3 [Caltrate with Vitamin D3] 1 tab PO BID 03/05/19 cholecalciferol (vitamin D3) 5,000 unit PO DAILY 03/05/19 cholecalciferol (vitamin D3) [Vitamin D3] 3,000 unit PO DAILY 03/05/19 metformin 1,000 mg PO BID 03/05/19 acetaminophen [Tylenol] 650 mg PO Q6H PRN PRN tablet 03/14/19 ferrous sulfate 325 mg PO DAILY 03/20/21 lisinopril 10 mg DAILY 03/20/21 nystatin [Nyamyc] 1 applic TOPICAL BID #1 bottle 03/21/21 alendronate 70 mg PO 01/22/22 citalopram 20 mg PO DAILY 01/22/22 furosemide 80 mg PO DAILY 01/22/22 nystatin [Nyamyc] 1 applic TOPICAL BID #60 g 01/25/22 Hospital Course Operations None Procedures 2-D Echocardiogram and - (MRA/MRI brain, bilateral carotid ultrasounds) Summary of Care Provided Minutes Spent on Discharge: 41 Hospital Course: Mrs. Cordova is a 76-year-old white female who presented to the emergency department [facility] on 01/22/2022 secondary to mechanical falls. She had evidently been evaluated in the emergency department on 01/17/2022 secondary to a fall but presented on the day of admission with recurrent falls. She denied any prodrome or loss of consciousness but reported that she was debilitated and living alone. She evidently was laying on the floor for approximately 5 hours until she was able to get help. The patient indicates that her fall was related to a stool that she placed in her kitchen and she fell over it in the middle of the night. On further questioning we discussed her utilization of assistive devices and evidently she had been using a quad cane but been transitioning to a walker. Unfortunately she had not been using her wheeled walker consistently. We discussed the importance of this at discharge and she stated she would use her walker more consistently at home and understood the importance. The EMS report on arrival did report her living conditions were very soiled and she was disheveled in appearance. They were concerned for her ability to take care of her self. In the emergency department she was noted to have significant intertrigo yeast but she noted that this was chronic and unchanged. She had an elevated blood pressure with a pressure of 167/74. Her vital signs were otherwise unremarkable. She reported compliance with her home medications. Her CBC showed a mild white count elevation and a left shift in her CMP showed an elevated BUN and creatinine compared to her baseline however this was only slight. She evidently developed some confusion and expressive aphasia overnight on the day that she was admitted and stroke work-up was initiated. Per documentation her stroke scale numbers were extremely variable and she had periods when she was completely appropriate and then had other is where she would have nonstop since occult expressive aphasia. The symptoms had resolved by the morning of 01/23/2022. Given concern for stroke her antihypertensives were held to allow for permissive hypertension until we could follow up on all of her imaging studies. Given the fall and trauma presentation a CT of his head was performed and was negative for any acute intracranial or calvarial abnormality. A CT of her cervical spine was performed and showed no significant acute injury but did show degenerative changes in the cervical spine. Her chest x-ray showed no acute cardiopulmonary disease. A CT of her facial bones was performed and was negative for any fractures. An MRI of her brain was performed and showed no acute or subacute ischemic infarcts or acute intracranial abnormality/mass. An MRI of her head was performed and was found to be normal. An echocardiogram was performed and showed an EF of 60% with mild left atrial enlargement and trivial aortic insufficiency. Diastolic dysfunction was unable to be assessed. Bilateral carotid ultrasounds were performed and showed heterogeneous plaque in the right internal and external carotid artery as well as the left internal and external carotid artery both of which were less than 50% stenosis. Her vertebral arteries were patent and antegrade flow bilaterally. An EEG was performed and showed generalized background slowing but no distinct epileptiform activity and was reported to be nonspecific. She was evaluated by neurology and they had no further suggestions with regards to her work-up or treatment. We were initially concerned that she may not be able to go home however she was evaluated by physical therapy and did well utilizing her wheeled walker. Again we did impress upon her the importance of her using her appropriate assistive devices at home. She was amenable to home health care for increased help and evaluation. I do recommend she follow-up with her primary care physician to reevaluate her blood pressure as outpatient. She had some elevations while she was here however we did hold her antihypertensives temporarily given the concern for stroke to allow for permissive hypertension. Recommend follow-up with her primary care physician in the next 1 to 2 weeks. APS has been contacted given her disheveled home environment and concerns to care for herself however the patient seems to be in denial with regards to this. Discharge diagnoses: Mechanical fall secondary to debility Expressive aphasia resolved Mild rhabdomyolysis-resolved Intertrigo in his Deja Hypertension Hyperlipidemia DM-2 Chronic microcytic anemia secondary to iron deficiency Periorbital hematoma CKD stage IIIb Morbid obesity Anxiety Depression Physical Exam Const alert, oriented x3, no apparent distress and well nourished Constitutional Narrative: Morbidly obese white female sitting up in a chair at the bedside, appears comfortable, nontoxic General Appearance: cooperative, comfortable and well developed Orientation / Consciousness: awake Nutritional Appearance: morbidly obese HEENT normocephalic, hearing grossly normal bilaterally and moist oral mucous membranes HEENT Narrative: Marked ecchymosis on the right side of the face with bilateral periorbital as well in various stages of healing, Mallampati is 3, no thrush Eyes PERRL, EOMs intact bilaterally and conjunctivae normal Eyes Narrative: No scleral icterus Neck no lymphadenopathy, supple and no JVD Neck Narrative: Trachea midline with no thyroid enlargement noted, neck is short and thick Resp normal respiratory effort, no retractions, no use of accessory muscles and clear to auscultation bilaterally Auscultation: Negative for crackles, rales, rhonchi or wheezes Cardio regular rate, regular rhythm, S1 normal heart sound, S2 normal heart sound, no murmurs, no rub, no gallops, no clicks and no JVD GI normal to inspection, nondistended, normoactive bowel sounds, soft to palpation, non-tender and non-distended Extremity Extremity Narrative: Slight bilateral lower extremity edema that is pitting in nature, few scattered wounds on bilateral lower extremities that are healing and having no signs of infection, no cyanosis or clubbing, pedal pulses are 2+ Skin skin turgor normal, no jaundice, no petechiae and no mottling Neuro oriented x3, CN's II-XII intact bilaterally, moves all extremities and no focal motor deficits Neuro Narrative: Mild generalized weakness proximal greater than distal Sensorium / Orientation: awake and alert Speech: speech normal Psych affect normal Weight / BMI Weight Weight: 94 kg Body Mass Index (BMI) 40.2 ABG / Lab / Microbiology Data Result Diagrams: 01/25/22 05:12 01/25/22 05:12 Laboratory: Laboratory Results - last 24 hr 01/24/22 17:23: POC Glucose 138 H 01/24/22 22:04: POC Glucose 152 H 01/25/22 05:12: WBC 9.9, RBC 3.95 L, Hgb 9.4 L, Hct 30.3 L, MCV 76.7 L, MCH 23.8 L, MCHC 31.0 L, RDW Std Deviation 46.2 H, RDW Coeff of Juan Diego 16.6 H, Plt Count 288, MPV 10.0, Immature Gran % (Auto) 0.400, Neut % (Auto) 68.4, Lymph % (Auto) 9.2 L, Butler % (Auto) 16.3 H, Eos % (Auto) 5.5 H, Baso % (Auto) 0.2, Absolute Neuts (auto) 6.7, Absolute Lymphs (auto) 0.91, Nucleated RBC % 0, Differential Comment SCANNED 01/25/22 05:12: Sodium 138, Potassium 3.6, Chloride 103, Carbon Dioxide 29.0, Anion Gap 6, BUN 15, Creatinine 1.20 H, Estim Creat Clear Calc 30.57, Est GFR (MDRD) Af Amer 56 L, Est GFR (MDRD) Non-Af 47 L, BUN/Creatinine Ratio 12.5, Glucose 143 H, Calcium 8.6 01/25/22 06:31: POC Glucose 146 H 01/25/22 11:24: POC Glucose 198 H Radiography Diagnostic Testing: Radiology Impression Carotid Duplex 01/22/22 19:29 Interpretation Summary 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 Performed By: Isha Anna RVT Echocardiogram 01/22/22 19:29 Interpretation Summary The estimated ejection fraction is 60 %. The left atrium is mildly enlarged. Unable to assess diastolic dysfunction. Trivial aortic valve insufficiency. Ordering Physician: Esha Jiménez Referring Physician: Elena Mims Performed By: Giuliana Naranjo, QIAN, RVT D/C Instructions Discharge Diet: Low fat / Low cholesterol and 1800 Calorie Control Diet Discharge Activity: Return to Normal Activity (use walker to ambulate) Meaningful Use Info Meaningful Use Diagnoses (Choose all that apply): None applicable Discharge Plan Admission Admit Date/Time: 01/22/22 15:28 Primary Reason for Your Visit: falls Attending Provider: Adrienne Prather Primary Care Provider: Elena Mims Discharge Orders/Prescriptions Prescriptions: New nystatin [Nyamyc] 100,000 unit/gram Powder 1 applic topical BID Qty: 60 RF: 0 Continued metoprolol succinate [Toprol XL] 50 MG tablet extended release 24 hr 100 mg PO DAILY RF: 0 folic acid 1 MG tablet 1 mg PO DAILY@0800 RF: 0 rosuvastatin [Crestor] 40 MG tablet 40 mg PO MOWEFR RF: 0 alendronate 70 MG tablet 70 mg PO FAUSTIN RF: 0 metformin 500 MG tablet 1,000 mg PO BID RF: 0 Tresiba FlexTouch U-200 200 UNIT/ML insulin pen 5 units SQ DAILY RF: 0 acetaminophen [Tylenol 8 Hour] 650 MG tablet extended release 650 mg PO PRN PRN (Reason: Pain) RF: 0 cholecalciferol (vitamin D3) 5,000 UNIT capsule 5,000 unit PO DAILY RF: 0 cholecalciferol (vitamin D3) [Vitamin D3] 1,000 UNIT tablet 3,000 unit PO DAILY RF: 0 calcium carbonate-vitamin D3 [Caltrate with Vitamin D3] 1 TAB tablet 1 tab PO BID RF: 0 Trulicity 1.5 MG/0.5 ML pen injector 2 mg SQ FR RF: 0 acetaminophen [Tylenol] 325 MG tablet 650 mg PO Q6H PRN PRN (Reason: Mild Pain (1-3)/Temp > 100.7 F) RF: 0 lisinopril 10 mg tablet 10 mg DAILY RF: 0 ferrous sulfate 325 MG tablet 325 mg PO DAILY RF: 0 nystatin [Nyamyc] 100,000 unit/gram Powder 1 applic topical BID Qty: 1 RF: 0 alendronate 70 mg tablet 70 mg PO RF: 0 citalopram 20 mg tablet 20 mg PO DAILY RF: 0 furosemide 80 mg Tablet 80 mg PO DAILY RF: 0 Referrals / Follow Up: Elena Mims DO [Primary Care Provider] - Within 2 Weeks Disposition Disposition (needs filled in before D/C Order can be placed): Home Health Service Charges/Coding Visit Charges Inpatient E&M: 00417 Disch Hosp
[2022-01-25 14:04] LABS: Pathologist Review Reviewed
--- NOTE | 2022-01-25 16:10 | CASEMGMT ---
TRI called Samir at [facility] and notified her that patient is being discharged today with [facility] PT,OT, and RN. Samir from [facility] plans on going out to see patient. Khushi WATTERS
[2022-01-25 16:51] LABS: Bedside Glucose 161 mg/dL (74-106)
== END 2022-01-25 12:35 | disposition home health service (06) ==
LOC: ED 15:45 → MS3 16:25 → PCU 21:35
PROVIDERS: Admitting Provider Family Medicine; Emergency Provider Student in an Organized Health Care Education/Training Program; PCP Internal Medicine; Visit Provider Internal Medicine
DX: S05.10XA Contusion of eyeball and orbital tissues, unspecified eye, initial encounter (principal); E11.22 Type 2 diabetes mellitus with diabetic chronic kidney disease; E66.01 Morbid (severe) obesity due to excess calories; N18.32 Chronic kidney disease, stage 3b; W07.XXXA Fall from chair, initial encounter; I65.23 Occlusion and stenosis of bilateral carotid arteries; D50.9 Iron deficiency anemia, unspecified; Z79.83 Long term (current) use of bisphosphonates; F32.A Depression, unspecified; E86.0 Dehydration; B37.2 Candidiasis of skin and nail; I12.9 Hypertensive chronic kidney disease with stage 1 through stage 4 chronic kidney disease, or unspecified chronic kidney disease; R47.01 Aphasia; R53.81 Other malaise; F41.9 Anxiety disorder, unspecified; Z79.84 Long term (current) use of oral hypoglycemic drugs; E78.5 Hyperlipidemia, unspecified; M62.82 Rhabdomyolysis; Y93.9 Activity, unspecified; Y99.9 Unspecified external cause status; Z68.39 Body mass index [BMI] 39.0-39.9, adult; Y92.000 Kitchen of unspecified non-institutional (private) residence as the place of occurrence of the external cause; Z79.899 Other long term (current) drug therapy; M19.90 Unspecified osteoarthritis, unspecified site; R62.7 Adult failure to thrive; G93.40 Encephalopathy, unspecified
CPT/HCPCS: 36415; 70450; 70486; 70544; 70551; 71045; 72125; 80048; 80053; 80061; 80307; 81001; 82550; 82962; 83036; 83735; 84145; 84443; 85025; 92523; 92610; 93005; 93306; 93880; 94762; 95819; 96361; 96365; 96366; 96372; 96375; 97161; 97166; 97802; 99218; 99285; J7030; J7040; Q9957; A4216; C8929; G0378

== ENCOUNTER → 2022-02-18 | Outpatient (CLI) | payer MEDICARE, SELFPAY ==
[2022-02-18 17:36] LABS: Hematocrit 33.2 % (37-47); Hemoglobin 9.8 g/dL (12.0-15.0); Mean Corp Hgb Conc 29.5 g/dL (32-36); Mean Corpuscular Volume 77.9 fL (81-99); Mean Platelet Vol. 11.1 fl (6.2-12.0); Platelet Count 293 K/mm3 (150-450); RBC Distribution Width CV 17.1 % (11.6-14.6); RBC Distribution Width SD 48.2 fl (35.1-43.9); Red Blood Count 4.26 M/mm3 (4.2-5.4); White Blood Count 11.8 K/mm3 (4.4-11.0)
[2022-02-18 20:40] LABS: Albumin, Serum 2.9 g/dL (3.2-5.0); BUN 34 mg/dL (7-18); BUN/Creat Ratio 20.4 RATIO (10-20); Calcium,Total 9.2 mg/dL (8.5-10.1); Chloride 109 mmol/L (98-107); Creatinine, Serum 1.67 mg/dL (0.55-1.02); EST Glomerular Filtration Rate 32 mL/min (>60); Est Glom Filt Rate - Afr Amer 38 mL/min (>60); Glucose 106 mg/dL (74-106); Phosphorus 4.2 mg/dL (2.5-4.9); Potassium 6.1 mmol/L (3.5-5.1); Sodium Level 136 mmol/L (136-145)
[2022-02-21 07:50] LABS: PTHIN 13.5 pg/mL (18.4-80.1)
== END | disposition home or self-care (01) ==
LOC: MTLAB 15:04
PROVIDERS: PCP Internal Medicine; Referring Provider Nurse Practitioner Adult Health; Visit Provider Nurse Practitioner Adult Health
DX: N18.32 Chronic kidney disease, stage 3b (principal)
CPT/HCPCS: 36415; 80069; 82306; 83970; 85027

== ENCOUNTER → 2022-02-21 | Outpatient (CLI) | payer MEDICARE, SELFPAY ==
[2022-02-21 10:30] LABS: Protein, Urine (Random) < 6.0 mg/dL (<11.9)
[2022-02-21 15:29] LABS: Anion Gap 5 (5-15); BUN 33 mg/dL (7-18); BUN/Creat Ratio 19.3 RATIO (10-20); Calcium,Total 9.9 mg/dL (8.5-10.1); Chloride 108 mmol/L (98-107); Creatinine, Serum 1.71 mg/dL (0.55-1.02); EST Glomerular Filtration Rate 31 mL/min (>60); Est Glom Filt Rate - Afr Amer 37 mL/min (>60); Glucose 139 mg/dL (74-106); Potassium 5.4 mmol/L (3.5-5.1); Sodium Level 136 mmol/L (136-145)
== END | disposition home or self-care (01) ==
LOC: LABSPEC 13:02 → MTLAB 13:04
PROVIDERS: PCP Internal Medicine; Referring Provider Nurse Practitioner Adult Health; Visit Provider Nurse Practitioner Adult Health
DX: N18.32 Chronic kidney disease, stage 3b (principal)
CPT/HCPCS: 36415; 80048; 82570; 84156

== ENCOUNTER 2022-06-11 03:37 | Emergency (ER) | payer MEDICARE, SELFPAY ==
[2022-06-11 03:41] VITALS: BP 148/55; PULSE 68; RESP 18; TEMP 36.5; O2SAT 95; BMI 39.0
--- NOTE | 2022-06-11 03:53 | EDS_ITS ---
HPI History of Present Illness Chief Complaint: Upper Extremity Injury Informant: patient and EMS Occured/Mechanism Mechanism/Context: Yes same level fall Onset/Context/Timing Onset: Today (JPTA) Context: Sudden Onset Timing: Continuous Quality of Pain: Aching Location: right elbow Current Severity: Mild Maximum Severity: Moderate Worsened by: moving Relieved by: remaining still Associated Symptoms Associated Symptoms: Negative for Parasthesia, Weakness or Loss of Funtion Narrative Narrative: Patient states she got up out of her recliner early this morning to go check her blood sugar and as she felicia up out of the of the chair she is not sure what happened but she ended up falling to the carpeted floor, injuring her right elbow. No other injuries. She does not remember having any prodromal symptoms at all. No lightheadedness/dizziness, chest pain, shortness of breath, headache, focal neurologic symptoms nor did she have any of that afterwards. She think she lost her footing on the carpet. [facility] Medical History Anemia Candidal intertrigo History of gastroesophageal reflux (GERD) Hyperlipidemia Hypertension Lymphedema Morbid obesity Osteoporosis Stage 3b chronic kidney disease (CKD) Type II diabetes mellitus Home Medications folic acid 1 mg tablet 1 mg PO DAILY@0800 SUPPLEMENT 01/21/17 [History Last Taken 03/04/19] metoprolol succinate 50 mg tablet,extended release 24 hr (Toprol XL) 100 mg PO DAILY HEART 01/21/17 [History Last Taken 03/04/19] rosuvastatin 40 mg tablet (Crestor) 40 mg PO MOWEFR CHOLESTEROL 01/21/17 [History Last Taken 03/04/19] acetaminophen 650 mg tablet,extended release (Tylenol 8 Hour) 650 mg PO PRN PRN Pain 03/05/19 [History Last Taken 03/02/19] alendronate 70 mg tablet 70 mg PO FAUSTIN BONES 03/05/19 [History Last Taken 03/03/19] calcium carbonate 600 mg-vitamin D3 20 mcg (800 unit) tablet (Caltrate with Vitamin D3) 1 tab PO BID SUPPLEMENT 03/05/19 [History Last Taken 03/04/19] cholecalciferol (vitamin D3) 125 mcg (5,000 unit) capsule 5,000 unit PO DAILY SUPPLEMENT 03/05/19 [History Last Taken 03/04/19] cholecalciferol (vitamin D3) 25 mcg (1,000 unit) tablet (Vitamin D3) 3,000 unit PO DAILY SUPPLEMENT 03/05/19 [History Last Taken 03/04/19] dulaglutide 1.5 mg/0.5 mL subcutaneous pen injector (Trulicity) 2 mg SQ FR DM 03/05/19 [History Last Taken 03/01/19] insulin degludec 200 unit/mL (3 mL) subcutaneous pen (Tresiba FlexTouch U-200 insulin) 5 units SQ DAILY diabetes 03/05/19 [History Last Taken 03/05/19] metformin 500 mg tablet,extended release 24 hr 1,000 mg PO BID diabetes 03/05/19 [History Last Taken 03/04/19] acetaminophen 325 mg tablet (Tylenol) 650 mg PO Q6H PRN PRN Mild Pain (1-3)/Temp > 100.7 F 03/14/19 [Rx Last Taken Unknown] ferrous sulfate 325 mg (65 mg iron) tablet 325 mg PO DAILY supplement 03/20/21 [History Last Taken Unknown] lisinopril 10 mg tablet 10 mg DAILY blood pressure 03/20/21 [History Last Taken Unknown] nystatin 100,000 unit/gram topical powder ([place]) 1 applic topical BID #1 BOTTLE 03/21/21 [Rx Last Taken Unknown] alendronate 70 mg tablet 70 mg PO bones 01/22/22 [History Last Taken Unknown] citalopram 20 mg tablet 20 mg PO DAILY mental health 01/22/22 [History Last Taken Unknown] furosemide 80 mg tablet 80 mg PO DAILY diuretic 01/22/22 [History Last Taken Unknown] nystatin 100,000 unit/gram topical powder (Nyamyc) 1 applic topical BID #60 grams 01/25/22 [Rx Last Taken Unknown] Allergy/AdvReac Type Severity Reaction Status Date / Time chlorhexidine Allergy Unknown Verified 06/11/22 03:40 Iodinated Contrast Media Allergy Other Verified 06/11/22 03:40 [CONTRASTS] iodine Allergy Unknown Verified 06/11/22 03:40 Surgical History History of elbow surgery History of tonsillectomy and adenoidectomy 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 Social History household members: none Smoking Status: Never smoker alcohol intake: never substance use type: does not use ROS ROS ED Constitutional Constitutional ED: Denies chills or fever(s) Eyes Eyes: Denies change in vision or diplopia ENT ENT ED: Denies ear pain, epistaxis, facial pain or rhinorrhea Cardiovascular Cardiovascular: Denies chest pain or palpitations Respiratory/Chest Respiratory/Chest: Denies cough or dyspnea Gastrointestinal Gastrointestinal: Denies abdominal pain, diarrhea, melena, nausea or vomiting Genitourinary Genitourinary ED: Denies dysuria or hematuria Musculoskeletal Musculoskeletal: Reports extremity pain; Denies back pain or neck pain Integumentary Reports rash; Denies Abrasions or wounds Neurologic Neurologic: Denies paresthesias or weakness EXAM Physical Exam Const Vital Signs: 06/11/22 03:41 Temperature 97.7 F L Temperature Source Temporal Pulse Rate 68 Respiratory Rate 18 Blood Pressure 148/55 H Blood Pressure Mean 86 Pulse Ox 95 Oxygen Delivery Method Room Air Positive well nourished, well developed and obese General Appearance ED: well developed and NAD Nutritional Appearance: obese HEENT Reports TM's clear and nasal mucous membranes and turbinates normal atraumatic Face and Sinus: Negative for facial tenderness Tympanic Membrane ED: Yes TM's clear Eyes PERRL and EOMs intact bilaterally Visual Acuity: other Other Details: no entrapment or pain with extraocular movements Neck full ROM and supple General: Negative for tenderness Chest Wall inspection of chest normal and palpation of chest normal Chest: symmetrical chest wall rise; Negative for crepitus or tenderness Resp normal respiratory effort and clear to auscultation bilaterally Percussion: other equal BS bilat Cardio no murmurs Rate: regular rate Rhythm: regular rhythm GI normal to inspection, nondistended, normoactive bowel sounds, soft to palpation and non-tender GI Narrative: Large suprapubic pannus with intertriginous nontender erythema consistent with Deja. No discharge or abscess. Chronic per patient. Back/Spine normal ROM and normal to inspection Cervical Spine: Negative for cervical spine tenderness Thoracic Spine / Upper Back: Negative for thoracic spinal tenderness Lumbar Spine / Lower Back: Negative for lumbar spinal tenderness Extremity Extremity Narrative: Bilateral lower extremity edema with changes consistent with chronic stasis dermatitis. Limited range of motion of the left knee, chronic per patient. The motion she is able to do it is without significant discomfort, similar with the hip on that side as well as the right lower extremity she can move the knee better on that side. Very limited range of motion of the right elbow due to pain, no deformities but there is some swelling laterally with tenderness at the radial head, also at the medial epicondyle. Nontender at the olecranon process, she is not able to fully straighten due to pain but she is able to do short arc pronation and supination well. Neurovascular intact distally all 4 extremities. Neuro oriented x3, no focal motor deficits and no sensory deficits noted [place] Coma Scale: document GCS findings Spontaneous Obeys Commands Oriented 15 Sensorium / Orientation: alert Psych mental status grossly normal and thought process normal Skin no wounds Lesions: no lesions Rashes: no rashes MDM MDM MDM Narrative Medical decision making narrative: 4 view x-ray of the right elbow on my interpretation shows arthritic changes, postsurgical abnormalities with 3 orthopedic screws in the lateral upper condyle, and no acute fractures. Radiologist is in agreement. Discussed this with the patient and she is reassured, she is having trouble moving it, we will place her in a sling to use as needed, and she is asking for something for pain that she was given a Ross here. I offered admission because she lives by herself and is right handed. She declines and wants to go home. We discussed doing ADLs, she think she will be able to manage. I am not going to prescribe her narcotics at home and make her more likely to fall, she can use Tylenol and ice as needed, and follow-up with orthopedics as an outpatient if she continues to have issues with her elbow, she is comfortable with that plan. She states the person who operated on her retired long ago. With regards to her fall, it sounds more accidental/mechanical and I do not think she needs more of an emergent work-up now which I discussed with her and she is in agreement. Discharge Plan Triage Chief Complaint: Upper Extremity Injury ED Provider: Jimmy Crawford Dx/Rx/DC Orders Clinical Impression: Injury of right elbow, Accidental fall Instructions: ED Contusion, Elbow Prescriptions: No Action metoprolol succinate [Toprol XL] 50 MG tablet extended release 24 hr 100 mg PO DAILY Label Comments: treat high blood pressure folic acid 1 MG tablet 1 mg PO DAILY@0800 Label Comments: treat certain types of anemia rosuvastatin [Crestor] 40 MG tablet 40 mg PO MOWEFR Label Comments: treat high cholesterol alendronate 70 MG tablet 70 mg PO FAUSTIN Label Comments: TAKE 1 TABLET BY MOUTH ONCE WEEKLY metformin 500 MG tablet 1,000 mg PO BID Label Comments: TAKE TWO TABLETS EVERY DAY Tresiba FlexTouch U-200 200 UNIT/ML insulin pen 5 units SQ DAILY Label Comments: INJECT 30 UNITS SUBCUTANEOUSLY EVERY DAY acetaminophen [Tylenol 8 Hour] 650 MG tablet extended release 650 mg PO PRN PRN (Reason: Pain) cholecalciferol (vitamin D3) 5,000 UNIT capsule 5,000 unit PO DAILY cholecalciferol (vitamin D3) [Vitamin D3] 1,000 UNIT tablet 3,000 unit PO DAILY calcium carbonate-vitamin D3 [Caltrate with Vitamin D3] 1 TAB tablet 1 tab PO BID Trulicity 1.5 MG/0.5 ML pen injector 2 mg SQ FR Label Comments: 1 (ONE) MILLIGRAM EVERY WEEK acetaminophen [Tylenol] 325 MG tablet 650 mg PO Q6H PRN PRN (Reason: Mild Pain (1-3)/Temp > 100.7 F) 0RF lisinopril 10 mg tablet 10 mg DAILY Label Comments: TAKE 1 TABLET BY MOUTH TWICE DAILY ferrous sulfate 325 MG tablet 325 mg PO DAILY nystatin [Nyamyc] 100,000 unit/gram Powder 1 applic topical BID Qty: 1 0RF Protocol: *Topical Application Instructions APPLICATION INSTRUCTIONS: Apply to abdominal folds and groin Rx Instructions: apply to affected areas twice a day alendronate 70 mg tablet 70 mg PO Label Comments: TAKE 1 TABLET every week citalopram 20 mg tablet 20 mg PO DAILY Label Comments: TAKE 1 TABLET BY MOUTH AT BEDTIME furosemide 80 mg Tablet 80 mg PO DAILY nystatin [Nyamyc] 100,000 unit/gram Powder 1 applic topical BID Qty: 60 0RF Protocol: *Topical Application Instructions APPLICATION INSTRUCTIONS: UNDER BREASTS, ABD FOLD, GROIN Rx Instructions: place on red areas of groin Primary Care Provider: Elena Mims Referrals: Elena Mims DO [Primary Care Provider] - Moises Williamson MD [Med Staff - Active Staff] - 1 Week if not improving Disposition Disposition: Home, Self Care
--- NOTE | 2022-06-11 04:08 | RAD_ITS ---
EXAM: XR RIGHT ELBOW COMPLETE, 3 OR MORE VIEWS CLINICAL INDICATION: injury TECHNIQUE: Frontal, lateral and oblique views of the right elbow. This report was created using Infogram report generation technology. COMPARISON: None. FINDINGS: BONES/JOINTS: Extensive arthritic changes involving the elbow. Evidence of old trauma involving the radial aspect of the distal humerus with overlying focal soft tissue edema. Partially attenuated screws are identified traversing the lateral distal humeral condyle. No screw fractures are identified. No significant joint effusion. No unusual lytic or sclerotic lesions of bone. SOFT TISSUES: Unremarkable. No joint effusion. No soft tissue swelling or gas. No radiopaque foreign body. RAD/Elbow min 3 Views IMPRESSION: No acute osseous abnormalities. Remote traumatic and postsurgical changes. Electronically Signed: Fidel Selby MD at 4:32 EDT ,
[2022-06-11] MEDS: HYDROcodone Bitartrate/Apap 5/325 Tablet PO (04:42)
[2022-06-11 05:06] VITALS: BP 142/60; PULSE 78; RESP 18; O2SAT 96
== END 2022-06-11 05:42 | disposition home or self-care (01) ==
PROVIDERS: Emergency Provider Emergency Medicine; PCP Internal Medicine; Visit Provider Emergency Medicine
DX: S59.901A Unspecified injury of right elbow, initial encounter (principal); E11.22 Type 2 diabetes mellitus with diabetic chronic kidney disease; E66.01 Morbid (severe) obesity due to excess calories; Z79.4 Long term (current) use of insulin; N18.32 Chronic kidney disease, stage 3b; W07.XXXA Fall from chair, initial encounter; M19.021 Primary osteoarthritis, right elbow; I12.9 Hypertensive chronic kidney disease with stage 1 through stage 4 chronic kidney disease, or unspecified chronic kidney disease; E78.5 Hyperlipidemia, unspecified; M81.0 Age-related osteoporosis without current pathological fracture; Z79.899 Other long term (current) drug therapy; Z96.653 Presence of artificial knee joint, bilateral; Z96.643 Presence of artificial hip joint, bilateral
CPT/HCPCS: 73080; 99285

== ENCOUNTER → 2022-06-22 | Outpatient (CLI) | payer MEDICARE, SELFPAY ==
--- NOTE | 2022-06-22 12:17 | BI_ITS ---
MAMMOGRAPHY - BILATERAL SCREENING REASON FOR EXAM: Female, 76 years old. Routine annual screening examination. PERTINENT HISTORY: Non-contributory. TECHNIQUE: Digital bilateral breast jeffrey (3D mammographic acquisition) in the CC and MLO projections. 2-D mediolateral oblique (MLO) and craniocaudad (CC) views of both breasts were obtained. CAD: Full Field Digital Mammography with Computer Added Detection was performed. COMPARISON: Comparison is made with prior study dated 06/18/2021 and 05/19/2020. FINDINGS: Breast Composition: The breasts are almost entirely fatty. There are no dominant masses or suspicious calcifications. Stable benign appearing bilateral axillary nodes. No other significant abnormalities are identified. There has been no significant change since the prior study. BI/SCRN MAMM (CAD)W/JEFFREY BILAT IMPRESSION: Stable bilateral screening mammogram. Yearly follow-up mammogram recommended. (A) ASSESSMENT CATEGORY: BIRADS Category 2: Benign. A letter regarding these results will be sent to the patient by the facility within 30 days. Approximately 10% of breast cancers are not detected by mammography. A normal mammogram should not delay biopsy of a clinically suspicious abnormality. [id number] Electronically Signed: Bo Chan MD at 13:35 EDT ,
== END | disposition home or self-care (01) ==
LOC: OPBI 12:16
PROVIDERS: PCP Internal Medicine; Visit Provider Internal Medicine
DX: Z12.31 Encounter for screening mammogram for malignant neoplasm of breast (principal)
CPT/HCPCS: 77063; 77067

== ENCOUNTER → 2022-08-15 | Outpatient (CLI) | payer MEDICARE, SELFPAY ==
[2022-08-15 12:23] LABS: Hematocrit 34.1 % (37-47); Hemoglobin 10.4 g/dL (12.0-15.0); Mean Corp Hgb Conc 30.5 g/dL (32-36); Mean Corpuscular Hgb 24.3 pg (27.0-32.0); Mean Corpuscular Volume 79.7 fL (81-99); Platelet Count 288 K/mm3 (150-450); RBC Distribution Width CV 16.6 % (11.6-14.6); RBC Distribution Width SD 48.7 fl (35.1-43.9); Red Blood Count 4.28 M/mm3 (4.2-5.4); White Blood Count 8.8 K/mm3 (4.4-11.0)
[2022-08-15 12:45] LABS: PTHIN 18.9 pg/mL (18.4-80.1)
[2022-08-15 12:50] LABS: Vitamin D,25 Hydroxy 79.4 ng/mL
[2022-08-15 13:01] LABS: Albumin, Serum 3.2 g/dL (3.2-5.0); BUN 26 mg/dL (7-18); Calcium,Total 9.4 mg/dL (8.5-10.1); Chloride 101 mmol/L (98-107); Creatinine, Serum 1.37 mg/dL (0.55-1.02); EST Glomerular Filtration Rate 40 mL/min (>60); Est Glom Filt Rate - Afr Amer 48 mL/min (>60); Glucose 114 mg/dL (74-106); Potassium 4.2 mmol/L (3.5-5.1); Sodium Level 138 mmol/L (136-145)
== END | disposition home or self-care (01) ==
LOC: MTLAB 10:36
PROVIDERS: PCP Internal Medicine; Referring Provider Internal Medicine Nephrology; Visit Provider Internal Medicine Nephrology
DX: N18.32 Chronic kidney disease, stage 3b (principal)
CPT/HCPCS: 36415; 80069; 82306; 83970; 85027

== ENCOUNTER → 2022-08-17 | Outpatient (CLI) | payer MEDICARE, SELFPAY ==
[2022-08-17 12:38] LABS: Protein, Urine (Random) 11.8 mg/dL (<11.9); Protein:Creat Ratio 395 mg/g CRE (0-200)
== END | disposition home or self-care (01) ==
PROVIDERS: PCP Internal Medicine; Visit Provider Internal Medicine Nephrology
DX: N18.32 Chronic kidney disease, stage 3b (principal)
CPT/HCPCS: 82570; 84156

== ENCOUNTER → 2023-02-17 | Outpatient (CLI) | payer MEDICARE, SELFPAY ==
[2023-02-17 10:08] LABS: Hematocrit 35.2 % (37-47); Hemoglobin 10.4 g/dL (12.0-15.0); Mean Corp Hgb Conc 29.5 g/dL (32-36); Mean Corpuscular Volume 81.3 fL (81-99); Mean Platelet Vol. 10.2 fl (6.2-12.0); Platelet Count 251 K/mm3 (150-450); RBC Distribution Width CV 15.1 % (11.6-14.6); RBC Distribution Width SD 44.9 fl (35.1-43.9); Red Blood Count 4.33 M/mm3 (4.2-5.4); White Blood Count 10.5 K/mm3 (4.4-11.0)
[2023-02-17 10:43] LABS: Albumin, Serum 3.2 g/dL (3.2-5.0); BUN 23 mg/dL (7-18); BUN/Creat Ratio 17.8 RATIO (10-20); Calcium,Total 9.2 mg/dL (8.5-10.1); Chloride 103 mmol/L (98-107); Creatinine, Serum 1.29 mg/dL (0.55-1.02); EST Glomerular Filtration Rate 43 mL/min (>60); Est Glom Filt Rate - Afr Amer 52 mL/min (>60); Glucose 131 mg/dL (74-106); Phosphorus 3.1 mg/dL (2.5-4.9); Potassium 3.8 mmol/L (3.5-5.1); Sodium Level 135 mmol/L (136-145)
[2023-02-17 10:47] LABS: PTHIN 27.1 pg/mL (18.4-80.1)
[2023-02-17 10:50] LABS: Vitamin D,25 Hydroxy 90.1 ng/mL
[2023-02-17 16:09] LABS: Protein, Urine (Random) 27.9 mg/dL (<11.9); Protein:Creat Ratio 208 mg/g CRE (0-200)
== END | disposition home or self-care (01) ==
LOC: MTLAB 09:08
PROVIDERS: PCP Internal Medicine; Referring Provider Nurse Practitioner Adult Health; Visit Provider Nurse Practitioner Adult Health
DX: N18.32 Chronic kidney disease, stage 3b (principal)
CPT/HCPCS: 36415; 80069; 82306; 82570; 83970; 84156; 85027

== ENCOUNTER → 2023-07-13 | Outpatient (CLI) | payer MEDICARE, SELFPAY ==
--- NOTE | 2023-07-13 10:57 | BI_ITS ---
MAMMOGRAPHY - BILATERAL SCREENING REASON FOR EXAM: Female, 77 years old. Routine annual screening examination. PERTINENT HISTORY: Non-contributory. TECHNIQUE: Digital bilateral breast jeffrey (3D mammographic acquisition) in the CC and MLO projections. 2-D mediolateral oblique (MLO) and craniocaudad (CC) views of both breasts were obtained. CAD: Full Field Digital Mammography with Computer Added Detection was performed. COMPARISON: Comparison is made with prior study June 22, 2022 and June 18, 2021. FINDINGS: Breast Composition: The breasts are almost entirely fatty. There are no dominant masses or suspicious calcifications. Stable benign-appearing bilateral axillary lymph nodes. No other significant abnormalities are identified. BI/SCRN MAMM (CAD)W/JEFFREY BILAT IMPRESSION: Stable bilateral screening mammogram. Yearly follow-up mammogram recommended. (A) ASSESSMENT CATEGORY: BIRADS Category 2: Benign. A letter regarding these results will be sent to the patient by the facility within 30 days. Approximately 10% of breast cancers are not detected by mammography. A normal mammogram should not delay biopsy of a clinically suspicious abnormality. [id number] Electronically Signed: Bo Chan MD at 12:22 EDT ,
--- NOTE | 2023-07-13 11:00 | BD_ITS ---
STUDY: DUAL ENERGY X-RAY ABSORPTIOMETRY / DXA REASON FOR EXAM: Female, 77 years old. [id number] TECHNIQUE: Bone Mineral Density (BMD) measurements of both forearms were obtained. COMPARISON: Comparison is made with prior study dated May 19, 2020. FINDINGS: Right Forearm: g/cm2 (0.626) / T-score (0.9) / Z-score (3.5) Left Forearm: g/cm2 (0.666) / T-score (1.6) / Z-score (4.2) BD/Dexa Bone Density/Append Skel IMPRESSION: The patient is considered normal as outlined below according to World Ervin Organization (WHO) criteria with a low fracture risk. There has been improvement of bone density since the previous examination. Reference Information: The T-score is the number of standard deviations above or below the standard which is normal for young adults at their peak bone mineral density. The World Health Organization (WHO) interprets the T-scores as follows: Above -1 Normal bone density Between -1 and -2.5 Osteopenia Equal to / or below -2.5 Osteoporosis As a practical clinical guideline, osteopenia may be graded as follows: Mild -1 through -1.5 Moderate -1.6 through -2.0 Severe -2.1 through -2.4 The Z-score is the number of standard deviations above or below age-matched controls. A Z-score of less than -1.5 would be considered abnormal. References: 1. NIH Osteoporosis and Related Bone Diseases www osteo.org 2. International Society for Clinical Densitometry www iscd.org 3. National Osteoporosis Foundation www nof.org Electronically Signed: Bo Chan MD at 10:21 EDT ,
== END | disposition home or self-care (01) ==
LOC: OPBI 10:55
PROVIDERS: PCP Internal Medicine; Referring Provider Internal Medicine; Visit Provider Internal Medicine
DX: Z12.31 Encounter for screening mammogram for malignant neoplasm of breast (principal); Z78.0 Asymptomatic menopausal state
CPT/HCPCS: 77063; 77067; 77080; 77081

== ENCOUNTER → 2023-08-25 | Outpatient (CLI) | payer MEDICARE, SELFPAY ==
[2023-08-25 15:30] LABS: Hematocrit 35.7 % (37-47); Hemoglobin 10.7 g/dL (12.0-15.0); Mean Corpuscular Hgb 25.1 pg (27.0-32.0); Mean Corpuscular Volume 83.8 fL (81-99); Mean Platelet Vol. 11.8 fl (6.2-12.0); Platelet Count 257 K/mm3 (150-450); RBC Distribution Width SD 45.5 fl (35.1-43.9); Red Blood Count 4.26 M/mm3 (4.2-5.4); White Blood Count 8.7 K/mm3 (4.4-11.0)
[2023-08-25 15:53] LABS: BUN 34 mg/dL (7-18); BUN/Creat Ratio 16.9 RATIO (10-20); Calcium,Total 9.9 mg/dL (8.5-10.1); Chloride 111 mmol/L (98-107); Creatinine, Serum 2.01 mg/dL (0.55-1.02); EST Glomerular Filtration Rate 26 mL/min (>60); Est Glom Filt Rate - Afr Amer 31 mL/min (>60); Glucose 97 mg/dL (74-106); Potassium 4.3 mmol/L (3.5-5.1); Sodium Level 139 mmol/L (136-145)
[2023-08-25 15:57] LABS: Vitamin D,25 Hydroxy 62.9 ng/mL
[2023-08-25 18:07] LABS: Protein, Urine (Random) 89.5 mg/dL (<11.9); Protein:Creat Ratio 644 mg/g CRE (0-200)
[2023-08-28 12:52] LABS: PTHIN < 6.3 pg/mL (18.4-80.1)
== END | disposition home or self-care (01) ==
LOC: MTLAB 11:38
PROVIDERS: PCP Internal Medicine; Referring Provider Internal Medicine Nephrology; Visit Provider Internal Medicine Nephrology
DX: N18.32 Chronic kidney disease, stage 3b (principal)
CPT/HCPCS: 36415; 80069; 82306; 82570; 83970; 84156; 85027

== ENCOUNTER 2024-02-15 17:14 | Inpatient (IN) | payer MEDICARE, SELFPAY ==
[2024-02-15] VITALS (7 sets, daily range): BP systolic 111–131; BP diastolic 46–89; PULSE 57–62; RESP 12–20; TEMP 35.6–36.8; O2SAT 95–100; BMI 33.8; BMI 32.6
[2024-02-15 18:06] LABS: Absolute Lymphocyte Count 0.66 X10^3/uL (0.83-4.51); Absolute Neutrophil Count 7.5 X10^3/uL (2.0-7.7); Basophil# 0.03 X10^3/uL; Basophil% 0.3 % (0-1); Eosinophil# 0.36 X10^3/uL; Eosinophils% 3.7 % (0-5); Hematocrit 28.4 % (37-47); Hemoglobin 9.6 g/dL (12.0-15.0); Lymphocyte # 0.66 X10^3/ul (0.83-4.51); Lymphocyte % 6.8 % (19-41); Mean Corp Hgb Conc 33.8 g/dL (32-36); Mean Corpuscular Hgb 25.3 pg (27.0-32.0); Mean Corpuscular Volume 74.9 fL (81-99); Mean Platelet Vol. 10.1 fl (6.2-12.0); Monocyte# 1.14 X10^3/uL; Monocyte% 11.8 % (0-10); NRBC Flagged by Analyzer 0 % (0-5); Neutrophil # 7.46 X10^3/uL (2.7-7.7); Neutrophil % 77.1 % (47-70); Platelet Count 237 K/mm3 (150-450); RBC Distribution Width CV 18.3 % (11.6-14.6); Red Blood Count 3.79 M/mm3 (4.2-5.4); White Blood Count 9.7 K/mm3 (4.4-11.0)
--- NOTE | 2024-02-15 18:31 | EDS_ITS ---
HPI <Jeanette Cannon RN - Last Filed: 02/15/24 19:49> History of Present Illness Chief Complaint: Abn Labs Informant: patient Onset/Context/Timing Onset: Today Narrative Narrative: Patient is a 78-year-old female with past medical history significant for anemia, hyperlipidemia, hypertension, lymphedema, obesity, stage IIIb chronic kidney disease, and type 2 diabetes who was referred to the ED by Dr. Mims for abnormal lab work that was drawn yesterday. She reports that there was concern for kidney failure. Patient was seeing Dr. Mims for a routine visit. Patient reports for the past 2 weeks she has intermittently had sensations as if she was shaking all over. However when she looks she is not shaking. She is also had diarrhea since 03/2023. When diarrhea initially started her dose of Trulicity was decreased. It was eventually stopped and she was placed on Levemir. Yesterday Dr. Mims stopped her metformin. Patient reports an intentional 92 pound weight loss since 05/2023. She also reports fatigue over this past year. 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 She also reports decreased urine output over this past week. She denies dysuria, hematuria, and urinary frequency. She denies recent illness. Prior similar symptoms: No Recent Illness/Hospitalization: No PFSH <Jeanette Cannon RN - Last Filed: 02/15/24 19:49> PFSH Medical History Anemia Candidal intertrigo History of gastroesophageal reflux (GERD) Hyperlipidemia Hypertension Lymphedema Morbid obesity Osteoporosis Stage 3b chronic kidney disease (CKD) Type II diabetes mellitus Home Medications folic acid 1 mg tablet 1 mg PO DAILY@0800 SUPPLEMENT 01/21/17 [History Last Taken 03/04/19] metoprolol succinate 50 mg tablet,extended release 24 hr (Toprol XL) 100 mg PO DAILY HEART 01/21/17 [History Last Taken 03/04/19] rosuvastatin 40 mg tablet (Crestor) 40 mg PO MOWEFR CHOLESTEROL 01/21/17 [History Last Taken 03/04/19] alendronate 70 mg tablet 70 mg PO FAUSTIN BONES 03/05/19 [History Last Taken 03/03/19] calcium carbonate 600 mg-vitamin D3 20 mcg (800 unit) tablet (Caltrate with Vitamin D3) 1 tab PO BID SUPPLEMENT 03/05/19 [History Last Taken 03/04/19] cholecalciferol (vitamin D3) 125 mcg (5,000 unit) capsule 5,000 unit PO DAILY SUPPLEMENT 03/05/19 [History Last Taken 03/04/19] ferrous sulfate 325 mg (65 mg iron) tablet 325 mg PO DAILY supplement 03/20/21 [History Last Taken Unknown] citalopram 20 mg tablet 20 mg PO DAILY mental health 01/22/22 [History Last Taken Unknown] furosemide 80 mg tablet 80 mg PO DAILY diuretic 01/22/22 [History Last Taken Unknown] nystatin 100,000 unit/gram topical powder (Nyamyc) 1 applic topical BID #60 grams 01/25/22 [Rx Last Taken Unknown] acetaminophen 325 mg tablet (Tylenol) 650 mg PO Q6H PRN Mild Pain (1-3)/Temp > 100.7 F 02/15/24 [History Last Taken Unknown] insulin detemir U-100 100 unit/mL (3 mL) subcutaneous pen (Levemir FlexPen) 10 unit subcut QHS 02/15/24 [History Last Taken Unknown] pentoxifylline 400 mg tablet,extended release 400 mg PO DAILY 02/15/24 [History Last Taken Unknown] sitagliptin phosphate 50 mg tablet (Januvia) 50 mg PO DAILY 02/15/24 [History Last Taken Unknown] vitamin E 268 mg (400 unit) capsule 268 mg PO DAILY 02/15/24 [History Last Taken Unknown] Allergy/AdvReac Type Severity Reaction Status Date / Time chlorhexidine Allergy Unknown Verified 02/15/24 17:18 Iodinated Contrast Media Allergy Other Verified 02/15/24 17:18 [CONTRASTS] iodine Allergy Unknown Verified 02/15/24 17:18 Surgical History History of elbow surgery History of tonsillectomy and adenoidectomy 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 Social History household members: none Smoking Status: Never smoker alcohol intake: never substance use type: does not use ROS <Jeanette Cannon RN - Last Filed: 02/15/24 19:49> ROS ED Constitutional Constitutional ED: Denies chills, fever(s) or sweats Eyes Eyes: Denies change in vision ENT ENT ED: Denies rhinorrhea or sore throat Cardiovascular Cardiovascular: Denies chest pain or palpitations Respiratory/Chest Respiratory/Chest: Denies cough or dyspnea Gastrointestinal Gastrointestinal: Reports diarrhea; Denies abdominal pain, melena, nausea or vomiting Genitourinary Genitourinary ED: Reports other Details: Decreased urine output over the past week ; Denies dysuria, hematuria or urinary frequency Musculoskeletal Musculoskeletal: Denies arthralgias or myalgias Integumentary Denies rash Neurologic Neurologic: Denies headache(s), paresthesias or weakness Psychiatric Psychiatric: Denies anxiety or depression Hematologic/Lymphatic Hematologic/Lymphatic: Reports systems reviewed and no addt'l complaints, except as documented EXAM <Jeanette Cannon RN - Last Filed: 02/15/24 19:49> Physical Exam Narrative Exam Narrative: Patient awake, alert, talkative, good historian. Const Vital Signs: 02/15/24 17:15 02/15/24 18:03 02/15/24 18:04 Temperature 96.1 F L Temperature Source Temporal Pulse Rate 57 L 58 L Respiratory Rate 12 20 H Respiratory Effort Normal Non-Labored Respiratory Pattern Normal Blood Pressure 117/48 L 115/48 L Blood Pressure Mean 71 70 Pulse Ox 100 100 Oxygen Delivery Method Room Air Room Air 02/15/24 19:21 Temperature 98 F Temperature Source Oral Pulse Rate 62 Respiratory Rate 18 Respiratory Effort Respiratory Pattern Blood Pressure 111/47 L Blood Pressure Mean 68 Pulse Ox 95 Oxygen Delivery Method Room Air Positive well nourished and well developed General Appearance ED: well developed and NAD HEENT Reports moist mucous membranes Eyes PERRL and EOMs intact bilaterally Neck no JVD Chest Wall inspection of chest normal and palpation of chest normal Resp normal respiratory effort and clear to auscultation bilaterally Auscultation: Negative for rales, rhonchi or wheezes Cardio regular rate, regular rhythm, S1 normal heart sound and S2 normal heart sound Rate: bradycardia GI normal to inspection, nondistended, normoactive bowel sounds and non-tender Auscultation: normoactive bowel sounds Palpation: soft Back/Spine no CVA tenderness Extremity normal to inspection Extremity Narrative: Mild bilateral pedal edema General Extremety ED: Yes edema General Extremity: edema Neuro oriented x3 Sensorium / Orientation: alert Motor Exam: strength 5/5 throughout Psych mental status grossly normal Skin no wounds and skin turgor normal Skin Narrative: Redness and excoriation noted under bilateral breasts. <Dr. Yanci Maier MD - Last Filed: 02/15/24 19:44> Physical Exam Const Vital Signs: 02/15/24 17:15 02/15/24 18:03 02/15/24 18:04 Temperature 96.1 F L Temperature Source Temporal Pulse Rate 57 L 58 L Respiratory Rate 12 20 H Respiratory Effort Normal Non-Labored Respiratory Pattern Normal Blood Pressure 117/48 L 115/48 L Blood Pressure Mean 71 70 Pulse Ox 100 100 Oxygen Delivery Method Room Air Room Air 02/15/24 19:21 Temperature 98 F Temperature Source Oral Pulse Rate 62 Respiratory Rate 18 Respiratory Effort Respiratory Pattern Blood Pressure 111/47 L Blood Pressure Mean 68 Pulse Ox 95 Oxygen Delivery Method Room Air MDM <Jeanette Cannon RN - Last Filed: 02/15/24 19:49> MDM MDM Narrative Medical decision making narrative: IV line initiated. Labwork obtained to evaluate for leukocytosis, anemia, and electrolyte derangement. Urinalysis obtained to evaluate for infection/hematuria. History & Record Review Discussion w/independent historian: Patient Lab Data Attestation: I reviewed the patient's lab results. Labs: Laboratory Results - last 24 hr 02/15/24 02/15/24 17:55 18:35 WBC 9.7 RBC 3.79 L Hgb 9.6 L Hct 28.4 L MCV 74.9 L MCH 25.3 L MCHC 33.8 RDW Std Deviation 50.0 H RDW Coeff of [place] 18.3 H Plt Count 237 MPV 10.1 Immature Gran % (Auto) 0.300 Neut % (Auto) 77.1 H Lymph % (Auto) 6.8 L [place] % (Auto) 11.8 H Eos % (Auto) 3.7 Baso % (Auto) 0.3 Absolute Neuts (auto) 7.5 Absolute Lymphs (auto) 0.66 L Nucleated RBC % 0 Sodium 134 L Potassium 2.6 L* Chloride 109 H Carbon Dioxide 13.0 L Anion Gap 12 BUN 119 H* Creatinine 12.20 H* Estim Creat Clear Calc 3.73 Est GFR (MDRD) Af Amer 4 L Est GFR (MDRD) Non-Af 3 L BUN/Creatinine Ratio 9.8 L Glucose 224 H Calcium 9.2 Total Bilirubin 0.50 AST 17 ALT 25 Alkaline Phosphatase 77 Total Protein 6.9 Albumin 2.9 L Globulin 4.0 Albumin/Globulin Ratio 0.7 L Urine Color Yellow Urine Clarity Sl. Cloudy Urine pH 5.0 Ur Specific [place] 1.015 Urine Protein 30 H Urine Glucose (UA) Normal Urine Ketones Negative Urine Occult Blood 50 H Urine Nitrite Negative Urine Bilirubin Negative Urine Urobilinogen Normal Ur Leukocyte Esterase 500 H Urine RBC 0 SEEN Urine WBC 10-25 SEEN Ur Squamous Epith Cells 0-5 SEEN Ur Renal Epithelial Cell 0-5 SEEN Urine Bacteria 0 SEEN Urine Mucus 0 SEEN Radiography Diagnostic Testing: Clinical Impression(s) from Imaging Studies Abdomen/Pelvis CT 02/15/24 18:36 IMPRESSION: Small bilateral kidneys. Tiny nonobstructing calculus in the right renal pelvis.. Incidental finding of probable small hemorrhagic cyst No evidence for left renal obstruction or mass Electronically Signed: Tim Berg MD at 19:15 EDT Reading Location ID and State: [facility] / [place] Tel , Service support , EKG Initial EKG: Interpretation: Sinus Bradycardia Comments: Sinus bradycardia with first-degree block, heart rate 51. No evidence of dysrhythmia or ischemia. Prior EKG tracings: available for review Differential Diagnosis Differential Diagnosis: Acute kidney failure Management Discussion w/another healthcare provider: Other (Dr. Maier, ED provider) Treatment and Re-Evaluation :: Lab work and imaging reviewed. CBC shows a normal white blood cell count of 9.7, hemoglobin 9.6, platelets 237. Chemistry shows slightly decreased sodium at 134, hypokalemia at 2.6, CO2 of 13, BUN is elevated at 119, and creatinine is elevated at 12.2. In reviewing prior records, BUN on 08/25/2023 was 34 and creatinine 2.01. GFR is 3. Glucose is 224. Urine is positive for 30 of protein, positive for occult blood, and positive for leukocytes at 500. CT of the abdomen and pelvis without contrast was obtained to evaluate for obstruction. CT shows small bilateral kidneys. Tiny nonobstructing calculus in the right renal pelvis. Incidental finding of probable small hemorrhagic cyst. And no evidence for left renal obstruction or mass. Patient was given 40 milequivalents potassium p.o. for hypokalemia. EKG was obtained due to hypokalemia showing sinus bradycardia occasionally with first- degree AV block with a heart rate of 51. No evidence of ischemia. Nystatin cream was ordered due to concern for candidiasis beneath bilateral breast. Lab work and imaging discussed with patient and family member. Aware of plan for admission. Patient and family agreeable to plan. Dr. Maier spoke with hospitalist regarding admission. Patient seen and evaluated with [employer] student. I personally interviewed and examined the patient. I was involved in all aspects of patient's orders, int erpretation of results, and treatment. Patient sent in by Dr. Mims secondary to abnormal labs. Dr. Mims stated she saw the patient in the office yesterday. She had very minimal complaints, just some chronic fatigue. Lab work was done and revealed a GFR of 3 with a potassium of 2.9. Dr. Mims was concerned that these labs may be erroneous as the patient was not significantly symptomatic. She asked the patient to come back in to have labs repeated. She reportedly today stated that she has been tired with some intermittent confusion with this is been ongoing for quite some time. She denies nausea, vomiting, or tremors. She does report decreased urination. Patient sitting upright in bed no acute distress. Head and neck examination unremarkable. Heart is regular rate and rhythm. Lung sounds are clear. Abdomen is soft and nontender. Skin examination reveals yeast infection in the breast folds bilaterally. Neuro exam is grossly unremarkable with no focal deficits. CBC reveals white count of 9.7 with a hemoglobin 9.6. Chemistry studies significant for potassium of 2.6. BUN is 119 and creatinine is 12.2. Glucose is 224. Urinalysis reveals 10-25 white cells with 0 bacteria and 0-5 epithelials. 30 protein is noted. Patient is given IV fluids. A CT scan of the flank obtained to evaluate for possible obstruction leading to renal failure. CT scan reveals small bilateral kidneys with a tiny nonobstructing calculus in the right renal pelvis. Incidental finding of a probable small hemorrhagic cyst noted. No evidence of left renal obstruction or mass. EKG was obtained and reveals sinus bradycardia at 51 bpm with a first-degree AV block. No QRS widening noted. Patient is given oral potassium replacement. IV fluids are initiated. Patient we discussed with hospitalist for admission. Of note, patient is known to Dr. Robertson from nephrology. <Dr. Yanci Maier MD - Last Filed: 02/15/24 19:44> [facility] Lab Data Labs: Laboratory Results - last 24 hr 02/15/24 02/15/24 17:55 18:35 WBC 9.7 RBC 3.79 L Hgb 9.6 L Hct 28.4 L MCV 74.9 L MCH 25.3 L MCHC 33.8 RDW Std Deviation 50.0 H RDW Coeff of [place] 18.3 H Plt Count 237 MPV 10.1 Immature Gran % (Auto) 0.300 Neut % (Auto) 77.1 H Lymph % (Auto) 6.8 L [place] % (Auto) 11.8 H Eos % (Auto) 3.7 Baso % (Auto) 0.3 Absolute Neuts (auto) 7.5 Absolute Lymphs (auto) 0.66 L Nucleated RBC % 0 Sodium 134 L Potassium 2.6 L* Chloride 109 H Carbon Dioxide 13.0 L Anion Gap 12 BUN 119 H* Creatinine 12.20 H* Estim Creat Clear Calc 3.73 Est GFR (MDRD) Af Amer 4 L Est GFR (MDRD) Non-Af 3 L BUN/Creatinine Ratio 9.8 L Glucose 224 H Calcium 9.2 Total Bilirubin 0.50 AST 17 ALT 25 Alkaline Phosphatase 77 Total Protein 6.9 Albumin 2.9 L Globulin 4.0 Albumin/Globulin Ratio 0.7 L Urine Color Yellow Urine Clarity Sl. Cloudy Urine pH 5.0 Ur Specific [place] 1.015 Urine Protein 30 H Urine Glucose (UA) Normal Urine Ketones Negative Urine Occult Blood 50 H Urine Nitrite Negative Urine Bilirubin Negative Urine Urobilinogen Normal Ur Leukocyte Esterase 500 H Urine RBC 0 SEEN Urine WBC 10-25 SEEN Ur Squamous Epith Cells 0-5 SEEN Ur Renal Epithelial Cell 0-5 SEEN Urine Bacteria 0 SEEN Urine Mucus 0 SEEN Radiography Diagnostic Testing: Clinical Impression(s) from Imaging Studies Abdomen/Pelvis CT 02/15/24 18:36 IMPRESSION: Small bilateral kidneys. Tiny nonobstructing calculus in the right renal pelvis.. Incidental finding of probable small hemorrhagic cyst No evidence for left renal obstruction or mass Electronically Signed: Tim Berg MD at 19:15 EDT Reading Location ID and State: [facility] / [place] Tel , Service support , Treatment and Re-Evaluation :: Lab work and imaging reviewed. CBC C shows a normal white blood cell count of 9.7, hemoglobin 9.6, platelets 237. Chemistry shows slightly decreased sodium at 134, hypokalemia at 2.6, CO2 of 13, BUN is elevated at 119, and creatinine is elevated at 12.2. In reviewing prior records, BUN on 08/25/2023 was 34 and creatinine 2.01. GFR is 3. Glucose is 224. Urine is positive for 30 of protein, positive for occult blood, and positive for leukocytes at 500. CT of the abdomen and pelvis without contrast was obtained to evaluate for obstruction. Patient was given 40 mill equivalents potassium p.o. for hypokalemia. EKG was obtained due to hypokalemia showing sinus bradycardia occasionally with first- degree AV block with a heart rate of 51. No evidence of ischemia. Patient seen and evaluated with [employer] student. I personally interviewed and examined the patient. I was involved in all aspects of patient's orders, interpretation of results, and treatment. Patient sent in by Dr. Mims secondary to abnormal labs. Dr. Mims stated she saw the patient in the office yesterday. She had very minimal complaints, just some chronic fatigue. Lab work was done and revealed a GFR of 3 with a potassium of 2.9. Dr. Mims was concerned that these labs may be erroneous as the patient was not significantly symptomatic. She asked the patient to come back in to have labs repeated. She reportedly today stated that she has been tired with some intermittent confusion with this is been ongoing for quite some time. She denies nausea, vomiting, or tremors. She does report decreased urination. Patient sitting upright in bed no acute distress. Head and neck examination unremarkable. Heart is regular rate and rhythm. Lung sounds are clear. Abdomen is soft and nontender. Skin examination reveals yeast infection in the breast folds bilaterally. Neuro exam is grossly unremarkable with no focal deficits. CBC reveals white count of 9.7 with a hemoglobin 9.6. Chemistry studies significant for potassium of 2.6. BUN is 119 and creatinine is 12.2. Glucose is 224. Urinalysis reveals 10-25 white cells with 0 bacteria and 0-5 epithelials. 30 protein is noted. Patient is given IV fluids. A CT scan of the flank obtained to evaluate for possible obstruction leading to renal failure. CT scan reveals small bilateral kidneys with a tiny nonobstructing calculus in the right renal pelvis. Incidental finding of a probable small hemorrhagic cyst noted. No evidence of left renal obstruction or mass. EKG was obtained and reveals sinus bradycardia at 51 bpm with a first-degree AV block. No QRS widening noted. Patient is given oral potassium replacement. IV fluids are initiated. Patient we discussed with hospitalist for admission. Of note, patient is known to Dr. Robertson from nephrology. Discharge Plan Dx/Rx/DC Orders Clinical Impression: Acute kidney injury (nontraumatic), History of diabetes insipidus, History of hyperlipidemia, History of chronic kidney disease, History of hypertension, History of anemia, Candidiasis of breast Disposition Disposition: Acute Care Hospital [facility]
[2024-02-15 18:35] LABS: ALB/GLOB Ratio 0.7 RATIO (0.9-2.4); AST(SGOT) 17 U/L (15-37); Alanine Aminotransfer ALT/SGPT 25 U/L (13-56); Albumin, Serum 2.9 g/dL (3.2-5.0); Alkaline Phosphatase 77 U/L (45-117); Anion Gap 12 (5-15); BUN 119 mg/dL (7-18); BUN/Creat Ratio 9.8 RATIO (10-20); Calcium,Total 9.2 mg/dL (8.5-10.1); Chloride 109 mmol/L (98-107); EST Glomerular Filtration Rate 3 mL/min (>60); Est Glom Filt Rate - Afr Amer 4 mL/min (>60); Estimated Creatinine Clearance 3.73 ml/min; Glucose 224 mg/dL (74-106); Potassium 2.6 mmol/L (3.5-5.1); Protein, Total 6.9 g/dL (6.4-8.2); Sodium Level 134 mmol/L (136-145)
--- NOTE | 2024-02-15 18:35 | ED.RN ---
AWARE OF ABNORMAL LABS
--- NOTE | 2024-02-15 18:36 | CT_ITS ---
STUDY: CT ABDOMEN AND PELVIS WITHOUT CONTRAST REASON FOR EXAM: Female, 78 years old. Renal Failure RADIATION DOSAGE (If Supplied By Facility): CTDIvol = ( 13.34 ) mGy, DLP = ( 656.45 ) mGycm TECHNIQUE: Transaxial images were obtained from the dome of the diaphragm to the symphysis pubis without oral contrast, and without intravenous contrast. Sagittal and coronal images were reconstructed. Individualized dose optimization techniques were used for this CT. COMPARISON: None. FINDINGS: Minor chronic bibasilar interstitial thickening. The heart is mildly enlarged and there is multifocal coronary artery calcification Normal liver. Normal gallbladder and extrahepatic biliary system. Normal spleen. Normal pancreas. Normal bilateral adrenal glands. The kidneys are small measuring approximately 8.575 cm on the right and 8.8 cm on the left Tiny nonobstructing right renal calculus in the renal pelvis measuring approximately 3.4 mm in size. There is a small hyperattenuated nodule likely hemorrhagic cyst in the lower pole may be further assessed with MRI if clinically warranted. Normal left kidney. Normal visualized stomach. Minor ileus with diffuse fecal retention in the colon.. No evidence for acute appendicitis. Minor atherosclerotic change of the aorta without evidence for aneurysm. Normal inferior vena cava. Normal retroperitoneum. Normal urinary bladder. Bilateral hip prostheses are noted Small fat-containing periumbilical hernia.. Lumbar spine demonstrates mild degenerative change. CT/Abdomen/Pelvis without Cont IMPRESSION: Small bilateral kidneys. Tiny nonobstructing calculus in the right renal pelvis.. Incidental finding of probable small hemorrhagic cyst No evidence for left renal obstruction or mass Electronically Signed: Tim Berg MD at 19:15 EDT ,
--- NOTE | 2024-02-15 18:38 | EKG12_ITS ---
Test Reason : DYSRHYTHMIA Blood Pressure : / mmHG Vent. Rate : 051 BPM Atrial Rate : 051 BPM P-R Int : 216 ms QRS Dur : 110 ms QT Int : 596 ms P-R-T Axes : 018 -26 -30 degrees QTc Int : 549 ms Sinus bradycardia with 1st degree A-V block Nonspecific ST and T wave abnormality Abnormal ECG Confirmed by BETSY PAREDES, CLIFF ([id number]), sound editor ANDREW LINDA ([id number]) on 02/16/2024 8:21:29 AM Referred By: Confirmed By:CLIFF MEYER MD
[2024-02-15 18:39] LABS: Bacteria 0 SEEN /hpf (None Seen); Mucous, Urine 0 SEEN /hpf (<or=2+); Red Blood Cells-Urine 0 SEEN /hpf (0-5)
[2024-02-15 18:40] LABS: Color, Urine Yellow (Yellow); Glucose, Dipstick Normal (Normal); Ketone-Dipstick Negative (Negative); Leukocyte Esterase-Dipstick 500 /ul (Negative); Nitrite-Dipstick Negative (Negative); Occult Blood-Urine 50 /ul (Negative); Protein-Dipstick 30 mg/dl (Negative); Specific Gravity, Urine 1.015 (1.002-1.030); Urine Bilirubin Dipstick Negative (Negative); Urine Clarity Sl. Cloudy (Clear); Urine Urobilinogen Normal (Normal)
[2024-02-15 18:45] LABS: White Blood Cells 10-25 SEEN /hpf (0-5)
[2024-02-15 18:46] LABS: Renal Epithelial Cells 0-5 SEEN /hpf (0-5); Squamous Epithelial Cells - UA 0-5 SEEN /hpf (5-10)
[2024-02-15] MEDS: Potassium Chloride Oral Tablet 20 MEQ 40 MEQ PO (19:18)
[2024-02-15] MEDS: 0.9% Normal Saline (1000mL) 1,000 ML 150 ML IV (20:23)
[2024-02-15] MEDS: Nystatin Ointment 1 APPLIC TOPICAL (20:23)
--- NOTE | 2024-02-15 21:45 | HP.PCM.HOS_ITS ---
HPI - General General Date of Admission: 02/15/24 HPI Narrative JEANETTE NAVARRETE, is a 78 F who presents to the hospital at the request of her primary care physician secondary to abnormal labs. She has not been feeling well for the last couple weeks with increased fatigue so she had a BMP run that demonstrated renal failure with a new GFR of 3. Her baseline GFR prior to today was between 30 and 40. She was on Trulicity as well as metformin and Lasix all of which can affect her renal function but she says that she stopped her Trulicity several months ago and she stopped her metformin few weeks ago and then she is not taking Lasix. She was able to make urine today and she was started on IV fluids. Eosinophils in the CBC are negative and CT scan of her abdomen did not demonstrate an obstructing stone. Her creatinine is over 12 with a BUN of 119. Was given IV fluids as well as potassium as her potassium was 2.6. [facility] Medical History Anemia Candidal intertrigo History of gastroesophageal reflux (GERD) Hyperlipidemia Hypertension Lymphedema Morbid obesity Osteoporosis Stage 3b chronic kidney disease (CKD) Type II diabetes mellitus Home Medications folic acid 1 mg tablet 1 mg PO DAILY@0800 SUPPLEMENT 01/21/17 [History Last Taken 02/14/24] metoprolol succinate 50 mg tablet,extended release 24 hr (Toprol XL) 100 mg PO DAILY HEART 01/21/17 [History Last Taken 02/14/24] rosuvastatin 40 mg tablet (Crestor) 40 mg PO DAILY CHOLESTEROL 01/21/17 [History Last Taken 02/14/24] alendronate 70 mg tablet 70 mg PO FAUSTIN BONES 03/05/19 [History Last Taken 02/11/24] calcium carbonate 600 mg-vitamin D3 20 mcg (800 unit) tablet (Caltrate with Vitamin D3) 1 tab PO BID SUPPLEMENT 03/05/19 [History Last Taken 02/14/24] cholecalciferol (vitamin D3) 125 mcg (5,000 unit) capsule 5,000 unit PO DAILY SUPPLEMENT 03/05/19 [History Last Taken 02/14/24] ferrous sulfate 325 mg (65 mg iron) tablet 325 mg PO DAILY supplement 03/20/21 [History Last Taken 02/14/24] citalopram 20 mg tablet 20 mg PO DAILY mental health 01/22/22 [History Last Taken 02/14/24] furosemide 80 mg tablet 80 mg PO DAILY diuretic 01/22/22 [History Last Taken Unknown] nystatin 100,000 unit/gram topical powder (Nyamyc) 1 applic topical BID #60 grams 01/25/22 [Rx Last Taken 02/14/24] acetaminophen 325 mg tablet (Tylenol) 650 mg PO Q6H PRN Mild Pain (1-3)/Temp > 100.7 F 02/15/24 [History Last Taken 02/14/24] insulin detemir U-100 100 unit/mL (3 mL) subcutaneous pen (Levemir FlexPen) 10 unit subcut QHS 02/15/24 [History Last Taken 02/13/24] loperamide 2 mg tablet 2 mg PO Q4H PRN loose stool 02/15/24 [History Last Taken 02/14/24] pentoxifylline 400 mg tablet,extended release 400 mg PO DAILY 02/15/24 [History Last Taken 02/14/24] sitagliptin phosphate 50 mg tablet (Januvia) 50 mg PO DAILY 02/15/24 [History Last Taken 02/14/24] vitamin E 268 mg (400 unit) capsule 268 mg PO DAILY 02/15/24 [History Last Taken 02/14/24] Allergy/AdvReac Type Severity Reaction Status Date / Time chlorhexidine Allergy Unknown Verified 02/15/24 17:18 Iodinated Contrast Media Allergy Other Verified 02/15/24 17:18 [CONTRASTS] iodine Allergy Unknown Verified 02/15/24 17:18 Family History (Updated 02/15/24 @ 21:[address] 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 Social History household members: none Smoking Status: Never smoker alcohol intake: never substance use type: does not use ROS Constitutional Constitutional: Denies chills, fatigue, fever(s) or malaise Eyes Eyes: Denies blurry vision ENT HEENT: Denies headache(s) or nasal discharge Cardiovascular Cardiovascular: Denies chest pain, dyspnea on exertion or syncope Respiratory/Chest Respiratory/Chest: Denies cough, shortness of breath at rest or shortness of breath with exertion Gastrointestinal Gastrointestinal: Reports diarrhea; Denies constipation, nausea or vomiting Genitourinary Genitourinary: Denies dysuria Neurologic Neurologic: Denies focal weakness, numbness or tremor(s) Psychiatric Psychiatric: Denies anxiety or depression Vital Signs Vital Signs Vital Signs: 02/15/24 17:15 02/15/24 18:03 02/15/24 18:04 Temperature 96.1 F L Temperature Source Temporal Pulse Rate 57 L 58 L Respiratory Rate 12 20 H Respiratory Effort Normal Non-Labored Respiratory Pattern Normal Blood Pressure 117/48 L 115/48 L Blood Pressure Mean 71 70 Pulse Ox 100 100 Oxygen Delivery Method Room Air Room Air 02/15/24 19:21 02/15/24 20:05 02/15/24 20:23 Temperature 98 F 98 F 98.3 F Temperature Source Oral Temporal Pulse Rate 62 58 L 59 L Respiratory Rate 18 12 13 Respiratory Effort Respiratory Pattern Blood Pressure 111/47 L 131/54 H 121/89 H Blood Pressure Mean 68 79 99 Pulse Ox 95 96 99 Oxygen Delivery Method Room Air Room Air 02/15/24 21:13 Temperature 97.9 F Temperature Source Temporal Pulse Rate 60 Respiratory Rate 13 Respiratory Effort Respiratory Pattern Blood Pressure 120/57 L Blood Pressure Mean 78 Pulse Ox 98 Oxygen Delivery Method Room Air Weight Weight: 179 lb 3.773 oz Body Mass Index (BMI) 33.8 Physical Exam Narrative General: Alert, Oriented x3, Cooperative, No apparent distress HEENT: Atraumatic, PERRLA, EOMI, Normocephalic Oral: Dry mucosa Neck: Supple, No JVD Lungs: Diminished, Normal air movement, No rhonchi, No wheeze, No rales Cardiovascular: Regular rate, Regular Rhythm, Normal S1, Normal S2, No murmurs Abdomen: Soft, Non Tender, Non-Distended, No Hepato-splenomegaly Extremities: No edema, Capillary Refill Less than 3 Seconds Skin: No rashes, No breakdown Musculoskeletal: No Tenderness to Palpation of Joints or Extremities Neurological: No focal neurological deficits, Motor Exam 5/5 strength throughout, Sensory exam intact to light touch and pain Psych/Mental Status: Normal Affect, Appropriate Results Lab / Micro Data 02/15/24 17:55 02/15/24 17:55 Labs: Laboratory Results - last 24 hr 02/15/24 17:55: WBC 9.7, RBC 3.79 L, Hgb 9.6 L, Hct 28.4 L, MCV 74.9 L, MCH 25.3 L, MCHC 33.8, RDW Std Deviation 50.0 H, RDW Coeff of [place] 18.3 H, Plt Count 237, MPV 10.1, Immature Gran % (Auto) 0.300, Neut % (Auto) 77.1 H, Lymph % (Auto) 6.8 L, [place] % (Auto) 11.8 H, Eos % (Auto) 3.7, Baso % (Auto) 0.3, Absolute Neuts (auto) 7.5, Absolute Lymphs (auto) 0.66 L, Nucleated RBC % 0, Sodium 134 L, Potassium 2.6 L*, Chloride 109 H, Carbon Dioxide 13.0 L, Anion Gap 12, BUN 119 H*, Creatinine 12.20 H*, Estim Creat Clear Calc 3.73, Est GFR (MDRD) Af Amer 4 L , Est GFR (MDRD) Non-Af 3 L, BUN/Creatinine Ratio 9.8 L, Glucose 224 H, Calcium 9.2, Total Bilirubin 0.50, AST 17, ALT 25, Alkaline Phosphatase 77, Total Protein 6.9, Albumin 2.9 L, Globulin 4.0, Albumin/Globulin Ratio 0.7 L 02/15/24 18:35: Urine Color Yellow, Urine Clarity Sl. Cloudy, Urine pH 5.0, Ur Specific [place] 1.015, Urine Protein 30 H, Urine Glucose (UA) Normal, Urine Ketones Negative, Urine Occult Blood 50 H, Urine Nitrite Negative, Urine Bilirubin Negative, Urine Urobilinogen Normal, Ur Leukocyte Esterase 500 H, Urine RBC 0 SEEN, Urine WBC 10-25 SEEN, Ur Squamous Epith Cells 0-5 SEEN, Ur Renal Epithelial Cell 0-5 SEEN, Urine Bacteria 0 SEEN, Urine Mucus 0 SEEN Imaging Radiology Impression Abdomen/Pelvis CT 02/15/24 18:36 IMPRESSION: Small bilateral kidneys. Tiny nonobstructing calculus in the right renal pelvis.. Incidental finding of probable small hemorrhagic cyst No evidence for left renal obstruction or mass Electronically Signed: Tim Berg MD at 19:15 EDT , Assessment & Plan Assessment/Plan (1) Acute renal failure: PLAN: Plan 1. Acute renal failure with CKD 3B/hypokalemia ? Will monitor her potassium, it was replaced in the ER. Will also obtain phosphorus and magnesium ? She does see nephrology as an outpatient for chronic kidney disease but has never been close to needing dialysis ? Will continue with IV fluids as she is oliguric and not anuric. Will consult nephrology ? Will obtain random urine electrolytes as well as a urine creatinine ? Will obtain renal ultrasound ? While she is anemic which does appear to be chronic, she is not hypercalcemic and total protein is normal 2. Essential HTN/HLD ? Will hold her home medications given the severity of her renal failure ? We will monitor make adjustments as necessary 3. DM2 ? Will hold her insulin as well as her Sitagliptin ? Accu-Cheks ACHS ? Sliding scale insulin ? We will monitor make adjustments as necessary 4. Anxiety/depression ? Stable ? Continue escitalopram DVT: SCDs 75 minutes was spent on direct patient care, including documentation as well as chart review and collaboration with colleagues Charges/Coding Visit Charges Inpatient E&M: 64864 Init Hosp L3
[2024-02-15] MEDS: 0.9% Normal Saline (1000mL) 1,000 ML 100 ML IV (22:59)
[2024-02-16] VITALS (8 sets, daily range): BP systolic 99–119; BP diastolic 43–71; PULSE 51–58; RESP 15–18; TEMP 36.2–36.9; O2SAT 97–99
[2024-02-16 00:37] LABS: Urine Chloride 47 mmol/L (Not Establ.); Urine Sodium 41 mmol/L (Not Establ.)
[2024-02-16 00:53] LABS: Bedside Glucose 147 mg/dL (74-106)
--- NOTE | 2024-02-16 05:55 | US_ITS ---
STUDY: RENAL ULTRASOUND - COMPLETE REASON FOR EXAM: Female, 78 years old. ARF TECHNIQUE: Ultrasound evaluation of the kidneys was performed with real-time and static benton-scale imaging. COMPARISON: Comparison is made with prior study dated March 06, 2019. FINDINGS: RIGHT KIDNEY: Normal location of the right kidney, which is normal in size. The right kidney measures 10.1 cm x 4.7 cm x 5.2 cm. There is a normal cortex of the right kidney. The renal cortex measures 1.2 cm. There is a septated cyst measuring 1.7 cm x 1.3 cm x 0.9 cm in the inferior lateral aspect of the kidney. There is also evidence of a nonobstructive calculus in the midpole of the kidney measuring 7 mm x 7 mm. There are no right renal calculi. There is no right hydronephrosis. DISTAL RIGHT URETER: There is non-visualization of the distal right ureter. There is no demonstrated right ureterovesical junction calculus. There is a visualized right ureteral jet. LEFT KIDNEY: Normal location of the left kidney, which is normal in size. The left kidney measures 10.5 cm x 5.1 cm x 5.7 cm. There is a normal cortex of the left kidney. The renal cortex measures 1.3 cm. There is no left renal mass or cyst. There are no left renal calculi. There is no left hydronephrosis. DISTAL LEFT URETER: There is non-visualization of the distal left ureter. There is no demonstrated left ureterovesical junction calculus. There is a visualized left ureteral jet. BLADDER: The distended urinary bladder has a volume of 135 ml. There is a normal wall thickness of the distended urinary bladder. There is no demonstrated mass within the urinary bladder. There are no demonstrated bladder calculi. US/Kidney and Bladder IMPRESSION: Small right renal cyst and nonobstructive right renal calculus. Electronically Signed: Bo Chan MD at 9:08 EDT ,
[2024-02-16] MEDS: 0.9% Normal Saline (1000mL) 1,000 ML 100 ML IV (05:59)
[2024-02-16] MEDS: Nystatin Powder 15gm Bottle 1 APPLIC TOPICAL ×3 (05:59→21:19)
[2024-02-16 06:40] LABS: Absolute Lymphocyte Count 1.01 X10^3/uL (0.83-4.51); Absolute Neutrophil Count 6.4 X10^3/uL (2.0-7.7); Basophil# 0.03 X10^3/uL; Basophil% 0.3 % (0-1); Eosinophils% 5.3 % (0-5); Hematocrit 26.1 % (37-47); Hemoglobin 8.6 g/dL (12.0-15.0); Lymphocyte # 1.01 X10^3/ul (0.83-4.51); Lymphocyte % 10.6 % (19-41); Mean Corpuscular Hgb 24.8 pg (27.0-32.0); Mean Corpuscular Volume 75.2 fL (81-99); Mean Platelet Vol. 10.4 fl (6.2-12.0); Monocyte# 1.52 X10^3/uL; NRBC Flagged by Analyzer 0 % (0-5); Neutrophil # 6.41 X10^3/uL (2.7-7.7); Neutrophil % 67.4 % (47-70); POSITIVE DIFFERENTIAL YES; Platelet Count 219 K/mm3 (150-450); RBC Distribution Width CV 18.2 % (11.6-14.6); RBC Distribution Width SD 49.9 fl (35.1-43.9); Red Blood Count 3.47 M/mm3 (4.2-5.4); White Blood Count 9.5 K/mm3 (4.4-11.0)
[2024-02-16 06:46] LABS: Differential Indicated SCAN CRITERIA MET
[2024-02-16 06:50] LABS: Bedside Glucose 96 mg/dL (74-106)
[2024-02-16 07:39] LABS: Anion Gap 15 (5-15); BUN 111 mg/dL (7-18); BUN/Creat Ratio 9.7 RATIO (10-20); Calcium,Total 8.4 mg/dL (8.5-10.1); Chloride 111 mmol/L (98-107); EST Glomerular Filtration Rate 3 mL/min (>60); Est Glom Filt Rate - Afr Amer 4 mL/min (>60); Estimated Creatinine Clearance 4.04 ml/min; Glucose 120 mg/dL (74-106); Magnesium 1.8 mg/dL (1.6-2.6); Phosphorus 3.2 mg/dL (2.5-4.9); Sodium Level 139 mmol/L (136-145)
--- NOTE | 2024-02-16 08:42 | PCM.PN.HOSP ---
Reason for Visit Reason for Visit: Diagnoses Acute kidney failure, unspecified (02/15/24) Subjective Subjective Patient is a 78-year-old lady who was sent to the emergency department by her primary care physician with worsening kidney f Objective Data Objective Data Vital Signs: Vital Signs Temp Pulse Resp BP Pulse Ox O2 Del Method 97.5 F L 53 L 17 100/55 L 99 Room Air 02/16/24 04:06 02/16/24 04:06 02/16/24 04:06 02/16/24 04:06 02/16/24 04:06 02/16/24 07:40 Oxygen Delivery Method Room Air Weight: 81 kg Body Mass Index (BMI) 32.6 Intake & Output: Intake and Output for Last 24 Hours 02/14/24 02/15/24 02/16/24 23:59 23:59 23:59 Intake Total 1000 / 1000 700 / 700 Output Total 125 / 125 Balance 875 / 875 700 / 700 Lab / Micro Data 02/16/24 05:41 02/16/24 05:41 Labs: Laboratory Results - last 24 hr 02/15/24 17:55: WBC 9.7, RBC 3.79 L, Hgb 9.6 L, Hct 28.4 L, MCV 74.9 L, MCH 25.3 L, MCHC 33.8, RDW Std Deviation 50.0 H, RDW Coeff of [place] 18.3 H, Plt Count 237, MPV 10.1, Immature Gran % (Auto) 0.300, Neut % (Auto) 77.1 H, Lymph % (Auto) 6.8 L, [place] % (Auto) 11.8 H, Eos % (Auto) 3.7, Baso % (Auto) 0.3, Absolute Neuts (auto) 7.5, Absolute Lymphs (auto) 0.66 L, Nucleated RBC % 0, Sodium 134 L, Potassium 2.6 L*, Chloride 109 H, Carbon Dioxide 13.0 L, Anion Gap 12, BUN 119 H*, Creatinine 12.20 H*, Estim Creat Clear Calc 3.73, Est GFR (MDRD) Af Amer 4 L, Est GFR (MDRD) Non-Af 3 L, BUN/Creatinine Ratio 9.8 L, Glucose 224 H, Calcium 9.2, Total Bilirubin 0.50, AST 17, ALT 25, Alkaline Phosphatase 77, Total Protein 6.9, Albumin 2.9 L, Globulin 4.0, Albumin/Globulin Ratio 0.7 L 02/15/24 18:35: Urine Color Yellow, Urine Clarity Sl. Cloudy, Urine pH 5.0, Ur Specific [place] 1.015, Urine Protein 30 H, Urine Glucose (UA) Normal, Urine Ketones Negative, Urine Occult Blood 50 H, Urine Nitrite Negative, Urine Bilirubin Negative, Urine Urobilinogen Normal, Ur Leukocyte Esterase 500 H, Urine RBC 0 SEEN, Urine WBC 10-25 SEEN, Ur Squamous Epith Cells 0-5 SEEN, Ur Renal Epithelial Cell 0-5 SEEN, Urine Bacteria 0 SEEN, Urine Mucus 0 SEEN 02/15/24 22:57: POC Glucose 147 H 02/15/24 23:32: Ur Random Sodium 41, Urine Creatinine 65.00, Urine Potassium 5.0, Urine Chloride 47 02/16/24 05:41: WBC 9.5, RBC 3.47 L, Hgb 8.6 L, Hct 26.1 L, MCV 75.2 L, MCH 24.8 L, MCHC 33.0, RDW Std Deviation 49.9 H, RDW Coeff of [place] 18.2 H, Plt Count 219, MPV 10.4, Immature Gran % (Auto) 0.400, Neut % (Auto) 67.4, Lymph % (Auto) 10.6 L, [place] % (Auto) 16.0 H, Eos % (Auto) 5.3 H, Baso % (Auto) 0.3, Absolute Neuts (auto) 6.4, Absolute Lymphs (auto) 1.01, Nucleated RBC % 0, Sodium 139, Potassium 3.0 L, Chloride 111 H, Carbon Dioxide 13.0 L, Anion Gap 15, BUN 111 H*, Creatinine 11.50 H*, Estim Creat Clear Calc 4.04, Est GFR (MDRD) Af Amer 4 L, Est GFR (MDRD) Non-Af 3 L, BUN/Creatinine Ratio 9.7 L, Glucose 120 H, Calcium 8.4 L, Phosphorus 3.2, Magnesium 1.8 02/16/24 06:02: POC Glucose 96 Radiography Diagnostic Testing: Radiology Impression Abdomen/Pelvis CT 02/15/24 18:36 IMPRESSION: Small bilateral kidneys. Tiny nonobstructing calculus in the right renal pelvis.. Incidental finding of probable small hemorrhagic cyst No evidence for left renal obstruction or mass Electronically Signed: Tim Berg MD at 19:15 EDT Reading Location ID and State: [facility] / [place] Tel , Service support , Physical Exam Narrative GENERAL: cooperative HEENT: Atraumatic; normocephalic EYES; Anicteric, Normal Conjunctiva NECK; supple, normal thyroid, RESPIRATORY: Diminished to auscultation CARDIOVASCULAR: Regular S1 S2, GI: soft, normoactive bowel sounds, : No Renal angle tenderness; EXTREMITIES: No edema, no clubbing, MUSCULOSKELETAL: no muscle wasting NEURO: Awake; no lateralizing signs. SKIN: No Rash PSYCH; Flat affect Assessment & Plan Assessment/Plan (1) Acute renal failure: PLAN: Plan Patient is a 78-year-old lady who was sent to the emergency department by her primary care physician with worsening kidney function 1. Acute renal failure ? Superimposed on chronic kidney disease stage IIIb Patient admitted to regular nursing floor started on IV hydration potential nephrotoxic medications discontinued ordered renal ultrasound with consultation placed to nephrology. 2. Hypokalemia ? Secondary to diuretic therapy corrected per protocol 3. Hypertension - Blood pressure controlled, home medications continued with dose adjustment as needed 4. Dyslipidemia -Patient is on statin therapy, continued at home dose 5. Diabetes mellitus type II -patient's oral hypoglycemics held. Placed on long acting insulin, Accu-Cheks a.c. and at bedtime and covered with sliding scale insulin 6. Acute cystitis ? Patient started on ceftriaxone 7. Anemia - Secondary to chronic disorder monitoring H&H and transfuse if patient becomes symptomatic or hemoglobin falls below 7 8. Depression with anxiety ? Patient is on citalopram did continue 9. DVT prophylaxis ? SC heparin 10. Physical deconditioning - Requested for PT OT eval and social services counselor to assist with discharge planning Time spent in the patient's overall evaluation,decision-making process, review of diagnostic data, adjustment of management, discussion with other providers, nursing nursing and ancillary staff involved in patient's care documentation, 52 Minutes Charges/Coding Visit Charges Inpatient E&M: [id number] [facility] Hosp L3
[2024-02-16 09:53] LABS: Ferritin 116 ng/mL (8-252); Iron 105 ug/dL (50-170); Iron Binding Capacity,Total 250 ug/dL (250-450)
[2024-02-16 09:55] LABS: Vitamin B12 391 pg/mL (211-911)
[2024-02-16] MEDS: Ensure Plus High Protein 120 ML LIQUID PO ×2 (09:57→13:49)
[2024-02-16] MEDS: Potassium Chloride Oral Tablet 20 MEQ 40 MEQ PO (09:58)
[2024-02-16] MEDS: Heparin Injection (Vial) 5,000 UNIT/ML VIAL 5000 UNIT SC ×2 (09:58→21:15)
[2024-02-16] MEDS: Ceftriaxone 1 GM/50 ML BAG IV (10:07)
--- NOTE | 2024-02-16 10:10 | CASEMGMT ---
RN CM Face to Face with patient for initial transition planning/care coordination assessment. RN CM introduced self and role at [facility]. Patient lying in bed, alert and oriented. Patient willing to participate in assessment and is able to answer all questions appropriately. Care providers, pharmacy, and demographics verified. PCP: Felicita Specialists: Luke, outside cutter; Marcelo, metrologist Preferred Pharmacy: [facility]: [employer] [facility] Prescription Benefit: yes Living Will/HPOA: yes, niece Letha Seth LNOK: niece Living Arrangements: Patient lives alone in a first floor apartment with no steps. Patient states she is independent at home. Transportation: self, niece DME/HHC: Patient has raised toilet, cane, walker, grab bars, glucometer at home. No previous HHC or SNF Patient wishes to discharge home, will monitor progress with therapy. Patient may benefit from HHC vs SNF. Patient states she has no further needs or concerns at this time. CM to follow for discharge planning needs that may arise. Disposition Plan: TBD, anticipate HHC or SNF pending progress with therapy. Isha KELLOGGN, RN, CM
[2024-02-16] MEDS: Insulin Lispro 100 UNIT/ML INSULN.PEN SC ×3 (11:28→21:25)
[2024-02-16 11:49] LABS: Bedside Glucose 188 mg/dL (74-106)
--- NOTE | 2024-02-16 13:57 | PCM.CONS.R ---
Assessment & Plan Assessment/Plan (1) Acute renal failure: PLAN: Baseline cr around 1.3 to 1.5 admitted with cr of 12 or so UA is relatively benign urine sodium high but she takes lasix at home diarrhea ongoing for several months associated acidosis and hypokalemia. likely volume depletion mediated. continue fluids for now Acidosis gap and non gap. change fluids to RL Hypokalemia. repleted this am (2) History of chronic kidney disease: HPI Consult Data Date of Consult: 02/16/24 HPI Narrative Reason for Consultation: OSVALDO HPI Narrative: JEANETTE NAVARRETE, is a 78 F who presents to the hospital with Osvaldo. routine lab work showed cr of 12 hence she was directed to ER. history of CKD stage 3a/3b. baseline cr around 1.3 to 1.7. apparently having issues with diarrhea for several months now. was on trulicity, this was discontinued and despite that continues to have some diarrhea. no urinary complaints other than amount of urine has gone down in last 2 days. no breathing issues. no new med additions. metformin was stopped recently. ROS negative except above PFSH Medical History Anemia Candidal intertrigo History of gastroesophageal reflux (GERD) Hyperlipidemia Hypertension Lymphedema Morbid obesity Osteoporosis Stage 3b chronic kidney disease (CKD) Type II diabetes mellitus Home Medications folic acid 1 mg tablet 1 mg PO DAILY@0800 SUPPLEMENT 01/21/17 [History Last Taken 02/14/24] metoprolol succinate 50 mg tablet,extended release 24 hr (Toprol XL) 100 mg PO DAILY HEART 01/21/17 [History Last Taken 02/14/24] rosuvastatin 40 mg tablet (Crestor) 40 mg PO DAILY CHOLESTEROL 01/21/17 [History Last Taken 02/14/24] alendronate 70 mg tablet 70 mg PO FAUSTIN BONES 03/05/19 [History Last Taken 02/11/24] calcium carbonate 600 mg-vitamin D3 20 mcg (800 unit) tablet (Caltrate with Vitamin D3) 1 tab PO BID SUPPLEMENT 03/05/19 [History Last Taken 02/14/24] cholecalciferol (vitamin D3) 125 mcg (5,000 unit) capsule 5,000 unit PO DAILY SUPPLEMENT 03/05/19 [History Last Taken 02/14/24] ferrous sulfate 325 mg (65 mg iron) tablet 325 mg PO DAILY supplement 03/20/21 [History Last Taken 02/14/24] citalopram 20 mg tablet 20 mg PO DAILY mental health 01/22/22 [History Last Taken 02/14/24] furosemide 80 mg tablet 80 mg PO DAILY diuretic 01/22/22 [History Last Taken Unknown] nystatin 100,000 unit/gram topical powder (Nyamyc) 1 applic topical BID #60 grams 01/25/22 [Rx Last Taken 02/14/24] acetaminophen 325 mg tablet (Tylenol) 650 mg PO Q6H PRN Mild Pain (1-3)/Temp > 100.7 F 02/15/24 [History Last Taken 02/14/24] insulin detemir U-100 100 unit/mL (3 mL) subcutaneous pen (Levemir FlexPen) 10 unit subcut QHS 02/15/24 [History Last Taken 02/13/24] loperamide 2 mg tablet 2 mg PO Q4H PRN loose stool 02/15/24 [History Last Taken 02/14/24] pentoxifylline 400 mg tablet,extended release 400 mg PO DAILY 02/15/24 [History Last Taken 02/14/24] sitagliptin phosphate 50 mg tablet (Januvia) 50 mg PO DAILY 02/15/24 [History Last Taken 02/14/24] vitamin E 268 mg (400 unit) capsule 268 mg PO DAILY 02/15/24 [History Last Taken 02/14/24] Allergy/AdvReac Type Severity Reaction Status Date / Time chlorhexidine Allergy Unknown Verified 02/15/24 17:18 Iodinated Contrast Media Allergy Other Verified 02/15/24 17:18 [CONTRASTS] iodine Allergy Unknown Verified 02/15/24 17:18 Family History (Updated 02/15/24 @ 21:[address] 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 Social History household members: none Smoking Status: Never smoker alcohol intake: never substance use type: does not use Physical Exam Narrative Alert awake oriented x 3 no obvious distress no pallor no icterus no JVD s1s2 no murmurs lungs clear abdomen soft no organomegaly no edema no cyanosis Lab / Micro Data 02/16/24 05:41 02/16/24 05:41 Labs: Laboratory Results - last 24 hr 02/15/24 17:55: WBC 9.7, RBC 3.79 L, Hgb 9.6 L, Hct 28.4 L, MCV 74.9 L, MCH 25.3 L, MCHC 33.8, RDW Std Deviation 50.0 H, RDW Coeff of [place] 18.3 H, Plt Count 237, MPV 10.1, Immature Gran % (Auto) 0.300, Neut % (Auto) 77.1 H, Lymph % (Auto) 6.8 L, [place] % (Auto) 11.8 H, Eos % (Auto) 3.7, Baso % (Auto) 0.3, Absolute Neuts (auto) 7.5, Absolute Lymphs (auto) 0.66 L, Nucleated RBC % 0, Sodium 134 L, Potassium 2.6 L*, Chloride 109 H, Carbon Dioxide 13.0 L, Anion Gap 12, BUN 119 H*, Creatinine 12.20 H*, Estim Creat Clear Calc 3.73, Est GFR (MDRD) Af Amer 4 L, Est GFR (MDRD) Non-Af 3 L, BUN/Creatinine Ratio 9.8 L, Glucose 224 H, Calcium 9.2, Total Bilirubin 0.50, AST 17, ALT 25, Alkaline Phosphatase 77, Total Protein 6.9, Albumin 2.9 L, Globulin 4.0, Albumin/Globulin Ratio 0.7 L 02/15/24 18:35: Urine Color Yellow, Urine Clarity Sl. Cloudy, Urine pH 5.0, Ur Specific [place] 1.015, Urine Protein 30 H, Urine Glucose (UA) Normal, Urine Ketones Negative, Urine Occult Blood 50 H, Urine Nitrite Negative, Urine Bilirubin Negative, Urine Urobilinogen Normal, Ur Leukocyte Esterase 500 H, Urine RBC 0 SEEN, Urine WBC 10-25 SEEN, Ur Squamous Epith Cells 0-5 SEEN, Ur Renal Epithelial Cell 0-5 SEEN, Urine Bacteria 0 SEEN, Urine Mucus 0 SEEN 02/15/24 22:57: POC Glucose 147 H 02/15/24 23:32: Ur Random Sodium 41, Urine Creatinine 65.00, Urine Potassium 5.0, Urine Chloride 47 02/16/24 05:41: WBC 9.5, RBC 3.47 L, Hgb 8.6 L, Hct 26.1 L, MCV 75.2 L, MCH 24.8 L, MCHC 33.0, RDW Std Deviation 49.9 H, RDW Coeff of [place] 18.2 H, Plt Count 219, MPV 10.4, Immature Gran % (Auto) 0.400, Neut % (Auto) 67.4, Lymph % (Auto) 10.6 L, [place] % (Auto) 16.0 H, Eos % (Auto) 5.3 H, Baso % (Auto) 0.3, Absolute Neuts (auto) 6.4, Absolute Lymphs (auto) 1.01, Nucleated RBC % 0, Sodium 139, Potassium 3.0 L, Chloride 111 H, Carbon Dioxide 13.0 L, Anion Gap 15, BUN 111 H*, Creatinine 11.50 H*, Estim Creat Clear Calc 4.04, Est GFR (MDRD) Af Amer 4 L, Est GFR (MDRD) Non-Af 3 L, BUN/Creatinine Ratio 9.7 L, Glucose 120 H, Calcium 8.4 L, Phosphorus 3.2, Magnesium 1.8, Iron 105, TIBC 250, Iron Saturation 42.0, Ferritin 116, Vitamin B12 391 02/16/24 06:02: POC Glucose 96 02/16/24 11:19: POC Glucose 188 H Imaging Radiology Impression Abdomen/Pelvis CT 02/15/24 18:36 IMPRESSION: Small bilateral kidneys. Tiny nonobstructing calculus in the right renal pelvis.. Incidental finding of probable small hemorrhagic cyst No evidence for left renal obstruction or mass Electronically Signed: Tim Berg MD at 19:15 EDT , Renal Ultrasound 02/16/24 05:55 IMPRESSION: Small right renal cyst and nonobstructive right renal calculus. Electronically Signed: Bo Chan MD at 9:08 EDT ,
[2024-02-16] MEDS: Lactated Ringers 1,000 ML 125 ML IV ×2 (14:14→21:19)
--- NOTE | 2024-02-16 16:21 | CASEMGMT ---
DEBRA GOLD updated by therapy that patient did well and no therapy recommended at discharge. DEBRA GOLD it to updated patient. Patient wishes to discharge home. Patient aware that should she reconsider HHC or therapy to follow-up with PCP, patient voiced understanding. Patient had no further questions or concerns.
[2024-02-16 16:39] LABS: Bedside Glucose 158 mg/dL (74-106)
[2024-02-16 22:10] LABS: Bedside Glucose 167 mg/dL (74-106)
[2024-02-17] VITALS (7 sets, daily range): BP systolic 100–128; BP diastolic 43–69; PULSE 52–64; RESP 14–18; TEMP 36.3–36.7; O2SAT 96–100
[2024-02-17] MEDS: Nystatin Powder 15gm Bottle 1 APPLIC TOPICAL ×3 (05:35→21:53)
[2024-02-17] MEDS: Lactated Ringers 1,000 ML 125 ML IV ×2 (05:36→15:08)
[2024-02-17 06:49] LABS: Bedside Glucose 111 mg/dL (74-106)
--- NOTE | 2024-02-17 07:22 | PCM.PN.HOSP ---
Reason for Visit Reason for Visit: Diagnoses Acute kidney failure, unspecified (02/15/24) Personal history of other diseases of urinary system (02/15/24) Subjective Subjective Patient seen creatinine still remains markedly elevated. Will continue with hydration and monitoring of electrolytes Objective Data Objective Data Vital Signs: Vital Signs Temp Pulse Resp BP Pulse Ox O2 Del Method 97.3 F L 61 18 103/50 L 96 Room Air 02/17/24 03:00 02/17/24 03:00 02/17/24 03:00 02/17/24 03:00 02/17/24 03:00 02/17/24 03:00 Oxygen Delivery Method Room Air Weight: 81 kg Body Mass Index (BMI) 32.6 Intake & Output: Intake and Output for Last 24 Hours 02/15/24 02/16/24 02/17/24 23:59 23:59 23:59 Intake Total 1000 / 1000 2875.42 / 3125.42 1250 / 1250 Output Total 125 / 125 Balance 875 / 875 2875.42 / 3125.42 1250 / 1250 Lab / Micro Data 02/17/24 07:38 02/17/24 07:38 Labs: Laboratory Results - last 24 hr 02/16/24 05:41: Sodium 139, Potassium 3.0 L, Chloride 111 H, Carbon Dioxide 13.0 L, Anion Gap 15, BUN 111 H*, Creatinine 11.50 H*, Estim Creat Clear Calc 4.04, Est GFR (MDRD) Af Amer 4 L, Est GFR (MDRD) Non-Af 3 L, BUN/Creatinine Ratio 9.7 L, Glucose 120 H, Calcium 8.4 L, Phosphorus 3.2, Magnesium 1.8, Iron 105, TIBC 250, Iron Saturation 42.0, Ferritin 116, Vitamin B12 391 02/16/24 11:19: POC Glucose 188 H 02/16/24 16:17: POC Glucose 158 H 02/16/24 21:18: POC Glucose 167 H 02/17/24 06:30: POC Glucose 111 H Radiography Diagnostic Testing: Radiology Impression Renal Ultrasound 02/16/24 05:55 IMPRESSION: Small right renal cyst and nonobstructive right renal calculus. Electronically Signed: Bo Chan MD at 9:08 EDT , Physical Exam Narrative GENERAL: cooperative HEENT: Atraumatic; normocephalic EYES; Anicteric, Normal Conjunctiva NECK; supple, normal thyroid, RESPIRATORY: Diminished to auscultation CARDIOVASCULAR: Regular S1 S2, GI: soft, normoactive bowel sounds, : No Renal angle tenderness; EXTREMITIES: No edema, no clubbing, MUSCULOSKELETAL: no muscle wasting NEURO: Awake; no lateralizing signs. SKIN: No Rash PSYCH; Flat affect Assessment & Plan Assessment/Plan (1) Acute renal failure: PLAN: Plan Patient is a 78-year-old lady who was sent to the emergency department by her primary care physician with worsening kidney function 1. Acute renal failure ? Superimposed on chronic kidney disease stage IIIb Patient admitted to regular nursing floor started on IV hydration potential nephrotoxic medications discontinued ordered renal ultrasound with consultation placed to nephrology. ? 02/17/2024; no significant improvement in kidney function patient was seen in consultation by Dr. Robertson with nephrology his notes and recommendations reviewed. Will continue with current IV fluid and subsequent monitoring of electrolytes 2. Hypokalemia ? Secondary to diuretic therapy corrected per protocol 3. Hypertension - Blood pressure controlled, home medications continued with dose adjustment as needed 4. Dyslipidemia -Patient is on statin therapy, continued at home dose 5. Diabetes mellitus type II -patient's oral hypoglycemics held. Placed on long acting insulin, Accu-Cheks a.c. and at bedtime and covered with sliding scale insulin 6. Acute cystitis ? Patient started on ceftriaxone 7. Anemia - Secondary to chronic disorder monitoring H&H and transfuse if patient becomes symptomatic or hemoglobin falls below 7 8. Depression with anxiety ? Patient is on citalopram did continue 9. DVT prophylaxis ? SC heparin 10. Physical deconditioning - Requested for PT OT eval and social services specialist to assist with discharge planning Time spent in the patient's overall evaluation,decision-making process, review of diagnostic data, adjustment of management, discussion with other providers, nursing nursing and ancillary staff involved in patient's care documentation, 35 minutes Charges/Coding Visit Charges Inpatient E&M: 97084 Subs Hosp L2
[2024-02-17 07:53] LABS: Absolute Lymphocyte Count 0.84 X10^3/uL (0.83-4.51); Absolute Neutrophil Count 7.1 X10^3/uL (2.0-7.7); Basophil# 0.03 X10^3/uL; Basophil% 0.3 % (0-1); Eosinophil# 0.53 X10^3/uL; Eosinophils% 5.3 % (0-5); Hematocrit 25.8 % (37-47); Hemoglobin 8.8 g/dL (12.0-15.0); Lymphocyte # 0.84 X10^3/ul (0.83-4.51); Lymphocyte % 8.4 % (19-41); Mean Corp Hgb Conc 34.1 g/dL (32-36); Mean Corpuscular Hgb 25.1 pg (27.0-32.0); Mean Corpuscular Volume 73.5 fL (81-99); Mean Platelet Vol. 9.5 fl (6.2-12.0); Monocyte# 1.49 X10^3/uL; Monocyte% 14.9 % (0-10); NRBC Flagged by Analyzer 0 % (0-5); Neutrophil # 7.07 X10^3/uL (2.7-7.7); Neutrophil % 70.6 % (47-70); Platelet Count 204 K/mm3 (150-450); RBC Distribution Width CV 18.6 % (11.6-14.6); RBC Distribution Width SD 50.1 fl (35.1-43.9); Red Blood Count 3.51 M/mm3 (4.2-5.4)
[2024-02-17 08:32] LABS: Anion Gap 12 (5-15); BUN 103 mg/dL (7-18); BUN/Creat Ratio 10.2 RATIO (10-20); Calcium,Total 8.2 mg/dL (8.5-10.1); Chloride 117 mmol/L (98-107); EST Glomerular Filtration Rate 4 mL/min (>60); Est Glom Filt Rate - Afr Amer 5 mL/min (>60); Glucose 119 mg/dL (74-106); Magnesium 1.6 mg/dL (1.6-2.6); Phosphorus 2.7 mg/dL (2.5-4.9); Potassium 3.3 mmol/L (3.5-5.1); Sodium Level 140 mmol/L (136-145)
[2024-02-17] MEDS: Heparin Injection (Vial) 5,000 UNIT/ML VIAL 5000 UNIT SC ×2 (10:01→21:53)
[2024-02-17] MEDS: Ceftriaxone 1 GM/50 ML BAG IV (10:11)
[2024-02-17] MEDS: Insulin Lispro 100 UNIT/ML INSULN.PEN SC (11:39)
[2024-02-17 11:58] LABS: Bedside Glucose 187 mg/dL (74-106)
[2024-02-17 16:29] LABS: Bedside Glucose 141 mg/dL (74-106)
--- NOTE | 2024-02-17 19:38 | PN.RENAL_ITS ---
Subjective Subjective Follow-up on acute kidney injury Patient feels okay States that she is urinating much more No nausea or vomiting Diarrhea has resolved Objective Data Objective Data Vital Signs: Vital Signs Temp Pulse Resp BP Pulse Ox O2 Del Method 97.5 F L 53 L 17 100/55 L 99 Room Air 02/17/24 15:19 02/17/24 15:19 02/17/24 15:19 02/17/24 15:19 02/17/24 15:19 02/17/24 15:19 Oxygen Delivery Method Room Air Weight: 81 kg Body Mass Index (BMI) 32.6 Intake & Output: Intake and Output for Last 24 Hours 02/15/24 02/16/24 02/17/24 23:59 23:59 23:59 Intake Total 1000 / 1000 2875.42 / 3125.42 2780 / 2780 Output Total 125 / 125 Balance 875 / 875 2875.42 / 3125.42 2780 / 2780 Lab / Micro Data 02/17/24 07:38 02/17/24 07:38 Labs: Laboratory Results - last 24 hr 02/16/24 21:18: POC Glucose 167 H 02/17/24 06:30: POC Glucose 111 H 02/17/24 07:38: WBC 10.0, RBC 3.51 L, Hgb 8.8 L, Hct 25.8 L, MCV 73.5 L, MCH 25.1 L, MCHC 34.1, RDW Std Deviation 50.1 H, RDW Coeff of [place] 18.6 H, Plt Count 204, MPV 9.5, Immature Gran % (Auto) 0.500, Neut % (Auto) 70.6 H, Lymph % (Auto) 8.4 L, [place] % (Auto) 14.9 H, Eos % (Auto) 5.3 H, Baso % (Auto) 0.3, Absolute Neuts (auto) 7.1, Absolute Lymphs (auto) 0.84, Nucleated RBC % 0, Sodium 140, Potassium 3.3 L, Chloride 117 H, Carbon Dioxide 11.0 L, Anion Gap 12, BUN 103 H* , Creatinine 10.10 H*, Estim Creat Clear Calc 4.60, Est GFR (MDRD) Af Amer 5 L, Est GFR (MDRD) Non-Af 4 L, BUN/Creatinine Ratio 10.2, Glucose 119 H, Calcium 8.2 L, Phosphorus 2.7, Magnesium 1.6 02/17/24 11:36: POC Glucose 187 H 02/17/24 16:04: POC Glucose 141 H Physical Exam Narrative Pleasant elderly woman awake and responsive Oral mucosa still dry Neck is supple S1-S2 regular Normal respiration Abdomen is obese soft nontender No significant peripheral edema Assessment & Plan Assessment/Plan (1) Acute renal failure: PLAN: Baseline cr around 1.3 to 1.5 admitted with cr of 12 or so UA is relatively benign Insult is likely secondary to progressive ATN Serum creatinine stabilizing with slight improvement She is making much more urine now Hopefully will see further solute improvement over next 24-48 hrs. -No immediate need for renal placement therapy although I did discuss this option with her should renal function fail to further improve #2 acidemia -Serum bicarb of 11 secondary to progressive renal failure -Change IV fluid to half-normal saline with 75 mg of sodium bicarb at 125 cc an hour #3 hypokalemia -Continue to replace as needed Thank you please call [phone] with any concerns (2) History of chronic kidney disease:
[2024-02-17] MEDS: Sodium Bicarbonate 75 MEQ in 0.45% Normal Saline 1,000 ML 125 ML IV (21:49)
[2024-02-17 22:54] LABS: Bedside Glucose 148 mg/dL (74-106)
[2024-02-18 04:24] VITALS: BP 130/69; PULSE 57; RESP 15; TEMP 36.7; O2SAT 98
[2024-02-18] MEDS: Nystatin Powder 15gm Bottle 1 APPLIC TOPICAL ×3 (05:57→20:55)
[2024-02-18] MEDS: Sodium Bicarbonate 75 MEQ in 0.45% Normal Saline 1,000 ML 125 ML IV ×3 (05:58→23:28)
[2024-02-18 06:01] LABS: Absolute Lymphocyte Count 0.79 X10^3/uL (0.83-4.51); Absolute Neutrophil Count 5.6 X10^3/uL (2.0-7.7); Basophil# 0.02 X10^3/uL; Basophil% 0.3 % (0-1); Hematocrit 22.8 % (37-47); Hemoglobin 7.9 g/dL (12.0-15.0); Lymphocyte # 0.79 X10^3/ul (0.83-4.51); Lymphocyte % 9.9 % (19-41); Mean Corp Hgb Conc 34.6 g/dL (32-36); Mean Corpuscular Hgb 25.2 pg (27.0-32.0); Mean Corpuscular Volume 72.8 fL (81-99); Mean Platelet Vol. 10.2 fl (6.2-12.0); Monocyte# 1.19 X10^3/uL; Monocyte% 14.9 % (0-10); NRBC Flagged by Analyzer 0 % (0-5); Neutrophil # 5.57 X10^3/uL (2.7-7.7); Neutrophil % 69.5 % (47-70); Platelet Count 187 K/mm3 (150-450); RBC Distribution Width CV 18.6 % (11.6-14.6); RBC Distribution Width SD 49.4 fl (35.1-43.9); Red Blood Count 3.13 M/mm3 (4.2-5.4)
[2024-02-18 06:31] LABS: Anion Gap 9 (5-15); BUN 95 mg/dL (7-18); BUN/Creat Ratio 10.3 RATIO (10-20); Calcium,Total 7.7 mg/dL (8.5-10.1); Chloride 116 mmol/L (98-107); Creatinine, Serum 9.19 mg/dL (0.55-1.02); EST Glomerular Filtration Rate 4 mL/min (>60); Est Glom Filt Rate - Afr Amer 5 mL/min (>60); Estimated Creatinine Clearance 5.05 ml/min; Glucose 114 mg/dL (74-106); Potassium 2.8 mmol/L (3.5-5.1); Sodium Level 140 mmol/L (136-145)
--- NOTE | 2024-02-18 07:54 | PN.HOSP_ITS ---
Reason for Visit Reason for Visit: Diagnoses Acute kidney failure, unspecified (02/15/24) Personal history of other diseases of urinary system (02/15/24) Subjective Subjective Patient kidney function improving but rather slowly. Patient is very insistent on being discharged, however creatinine and BUN remains elevated at 9.12 and 95 respectively Objective Data Objective Data Vital Signs: Vital Signs Temp Pulse Resp BP Pulse Ox O2 Del Method 98.1 F 57 L 15 130/69 H 98 Room Air 02/18/24 04:24 02/18/24 04:24 02/18/24 04:24 02/18/24 04:24 02/18/24 04:24 02/18/24 04:33 Oxygen Delivery Method Room Air Weight: 81 kg Body Mass Index (BMI) 32.6 Intake & Output: Intake and Output for Last 24 Hours 02/16/24 02/17/24 02/18/24 23:59 23:59 23:59 Intake Total 2875.42 / 3125.42 3780 / 3780 1018.75 / 1018.75 Balance 2875.42 / 3125.42 3780 / 3780 1018.75 / 1018.75 Lab / Micro Data 02/18/24 05:22 02/18/24 05:22 Labs: Laboratory Results - last 24 hr 02/17/24 07:38: Sodium 140, Potassium 3.3 L, Chloride 117 H, Carbon Dioxide 11.0 L, Anion Gap 12, BUN 103 H*, Creatinine 10.10 H*, Estim Creat Clear Calc 4.60, Est GFR (MDRD) Af Amer 5 L, Est GFR (MDRD) Non-Af 4 L, BUN/Creatinine Ratio 10.2, Glucose 119 H, Calcium 8.2 L, Phosphorus 2.7, Magnesium 1.6 02/17/24 11:36: POC Glucose 187 H 02/17/24 16:04: POC Glucose 141 H 02/17/24 21:54: POC Glucose 148 H 02/18/24 05:22: WBC 8.0, RBC 3.13 L, Hgb 7.9 L, Hct 22.8 L, MCV 72.8 L, MCH 25.2 L, MCHC 34.6, RDW Std Deviation 49.4 H, RDW Coeff of [place] 18.6 H, Plt Count 187, MPV 10.2, Immature Gran % (Auto) 0.400, Neut % (Auto) 69.5, Lymph % (Auto) 9.9 L , [place] % (Auto) 14.9 H, Eos % (Auto) 5.0, Baso % (Auto) 0.3, Absolute Neuts (auto) 5.6, Absolute Lymphs (auto) 0.79 L, Nucleated RBC % 0, Sodium 140, Potassium 2.8 L, Chloride 116 H, Carbon Dioxide 15.0 L, Anion Gap 9, BUN 95 H, Creatinine 9.19 H*, Estim Creat Clear Calc 5.05, Est GFR (MDRD) Af Amer 5 L, Est GFR (MDRD) Non-Af 4 L, BUN/Creatinine Ratio 10.3, Glucose 114 H, Calcium 7.7 L Physical Exam Narrative GENERAL: cooperative HEENT: Atraumatic; normocephalic EYES; Anicteric, Normal Conjunctiva NECK; supple, normal thyroid, RESPIRATORY: Diminished to auscultation CARDIOVASCULAR: Regular S1 S2, GI: soft, normoactive bowel sounds, : No Renal angle tenderness; EXTREMITIES: No edema, no clubbing, MUSCULOSKELETAL: no muscle wasting NEURO: Awake; no lateralizing signs. SKIN: No Rash PSYCH; Flat affect Assessment & Plan Assessment/Plan (1) Acute renal failure: PLAN: Plan Patient is a 78-year-old lady who was sent to the emergency department by her primary care physician with worsening kidney function 1. Acute renal failure ? Superimposed on chronic kidney disease stage IIIb Patient admitted to regular nursing floor started on IV hydration potential nephrotoxic medications discontinued ordered renal ultrasound with consultation placed to nephrology. ? 02/17/2024; no significant improvement in kidney function patient was seen in consultation by Dr. Robertson with nephrology his notes and recommendations reviewed. Will continue with current IV fluid and subsequent monitoring of electrolytes ? 02/18/2024; BUN and creatinine trending in the right direction. 2. Hypokalemia ? Secondary to diuretic therapy corrected per protocol 3. Hypertension - Blood pressure controlled, home medications continued with dose adjustment as needed 4. Dyslipidemia -Patient is on statin therapy, continued at home dose 5. Diabetes mellitus type II -patient's oral hypoglycemics held. Placed on long acting insulin, Accu-Cheks a.c. and at bedtime and covered with sliding scale insulin 6. Acute cystitis ? Patient started on ceftriaxone 7. Anemia - Secondary to chronic disorder monitoring H&H and transfuse if patient becomes symptomatic or hemoglobin falls below 7 8. Depression with anxiety ? Patient is on citalopram did continue 9. DVT prophylaxis ? SC heparin 10. Physical deconditioning - Requested for PT OT eval and criminal justice social worker to assist with discharge planning Time spent in the patient's overall evaluation,decision-making process, review of diagnostic data, adjustment of management, discussion with other providers, nursing nursing and ancillary staff involved in patient's care documentation, 35 minutes Charges/Coding Visit Charges Inpatient E&M: 36293 Subs Hosp L2
[2024-02-18 08:33] LABS: Bedside Glucose 112 mg/dL (74-106)
[2024-02-18] MEDS: Ceftriaxone 1 GM/50 ML BAG IV (09:36)
[2024-02-18] MEDS: Heparin Injection (Vial) 5,000 UNIT/ML VIAL 5000 UNIT SC ×2 (09:36→20:54)
[2024-02-18 10:24] VITALS: BP 111/53; PULSE 57; RESP 20; TEMP 36.6; O2SAT 99
[2024-02-18] MEDS: Insulin Lispro 100 UNIT/ML INSULN.PEN SC ×3 (11:42→20:54)
[2024-02-18] MEDS: Potassium Chloride Oral Tablet 20 MEQ 40 MEQ PO (11:51)
[2024-02-18 13:19] LABS: Ferritin 133 ng/mL (8-252); Iron 90 ug/dL (50-170); Iron Binding Capacity,Total 237 ug/dL (250-450); Phosphorus 2.8 mg/dL (2.5-4.9)
[2024-02-18 16:00] VITALS: BP 131/53; PULSE 59; RESP 16; TEMP 36.7; O2SAT 100
[2024-02-18 16:27] LABS: Bedside Glucose 173 mg/dL (74-106)
[2024-02-18 19:11] LABS: Bedside Glucose 188 mg/dL (74-106)
[2024-02-18 20:53] VITALS: BP 122/56; PULSE 60; RESP 16; TEMP 36.2; O2SAT 99
[2024-02-18 21:15] LABS: Bedside Glucose 161 mg/dL (74-106)
[2024-02-19 03:15] VITALS: BP 141/61; PULSE 66; RESP 16; TEMP 36; O2SAT 96
[2024-02-19] MEDS: Nystatin Powder 15gm Bottle 1 APPLIC TOPICAL ×2 (06:33→21:33)
[2024-02-19 06:54] LABS: Bedside Glucose 140 mg/dL (74-106)
[2024-02-19 07:04] LABS: Absolute Lymphocyte Count 0.61 X10^3/uL (0.83-4.51); Absolute Neutrophil Count 8.2 X10^3/uL (2.0-7.7); Basophil# 0.04 X10^3/uL; Basophil% 0.4 % (0-1); Eosinophil# 0.37 X10^3/uL; Eosinophils% 3.4 % (0-5); Hematocrit 23.1 % (37-47); Hemoglobin 7.8 g/dL (12.0-15.0); Lymphocyte # 0.61 X10^3/ul (0.83-4.51); Lymphocyte % 5.6 % (19-41); Mean Corp Hgb Conc 33.8 g/dL (32-36); Mean Corpuscular Hgb 24.8 pg (27.0-32.0); Mean Corpuscular Volume 73.3 fL (81-99); Mean Platelet Vol. 10.2 fl (6.2-12.0); Monocyte# 1.54 X10^3/uL; Monocyte% 14.2 % (0-10); NRBC Flagged by Analyzer 0 % (0-5); Neutrophil # 8.21 X10^3/uL (2.7-7.7); Neutrophil % 75.8 % (47-70); POSITIVE DIFFERENTIAL YES; Platelet Count 193 K/mm3 (150-450); RBC Distribution Width CV 18.7 % (11.6-14.6); RBC Distribution Width SD 49.9 fl (35.1-43.9); Red Blood Count 3.15 M/mm3 (4.2-5.4); White Blood Count 10.8 K/mm3 (4.4-11.0)
[2024-02-19 07:13] LABS: Differential Indicated SCAN CRITERIA MET
[2024-02-19 07:51] LABS: Anion Gap 8 (5-15); BUN 89 mg/dL (7-18); BUN/Creat Ratio 11.4 RATIO (10-20); Calcium,Total 7.5 mg/dL (8.5-10.1); Chloride 113 mmol/L (98-107); Creatinine, Serum 7.79 mg/dL (0.55-1.02); EST Glomerular Filtration Rate 5 mL/min (>60); Est Glom Filt Rate - Afr Amer 7 mL/min (>60); Estimated Creatinine Clearance 5.96 ml/min; Glucose 132 mg/dL (74-106); Sodium Level 138 mmol/L (136-145)
[2024-02-19 08:03] LABS: Crenated RBC 1+
[2024-02-19 08:13] LABS: Vitamin B12 345 pg/mL (211-911)
[2024-02-19] MEDS: Sodium Bicarbonate 75 MEQ in 0.45% Normal Saline 1,000 ML 125 ML IV ×2 (08:32→17:02)
[2024-02-19 09:46] VITALS: BP 124/55; PULSE 63; RESP 18; TEMP 36.8; O2SAT 97
[2024-02-19] MEDS: Ceftriaxone 1 GM/50 ML BAG IV (09:47)
[2024-02-19] MEDS: Heparin Injection (Vial) 5,000 UNIT/ML VIAL 5000 UNIT SC ×2 (10:22→21:32)
--- NOTE | 2024-02-19 12:09 | PN.RENAL_ITS ---
Subjective Subjective No new complaints today Objective Data Objective Data Vital Signs: Vital Signs Temp Pulse Resp BP Pulse Ox O2 Del Method 98.3 F 63 18 124/55 H 97 Room Air 02/19/24 09:46 02/19/24 09:46 02/19/24 09:46 02/19/24 09:46 02/19/24 09:46 02/19/24 09:46 Oxygen Delivery Method Room Air Weight: 81 kg Body Mass Index (BMI) 32.6 Intake & Output: Intake and Output for Last 24 Hours 02/17/24 02/18/24 02/19/24 23:59 23:59 23:59 Intake Total 3780 / 3780 3200.00 / 3200.00 1125 / 1125 Balance 3780 / 3780 3200.00 / 3200.00 1125 / 1125 Lab / Micro Data 02/19/24 06:05 02/19/24 06:05 Labs: Laboratory Results - last 24 hr 02/18/24 05:22: Phosphorus 2.8, Iron 90, TIBC 237 L, Iron Saturation 38.0, Ferritin 133, Vitamin B12 345 02/18/24 11:39: POC Glucose 188 H 02/18/24 16:07: POC Glucose 173 H 02/18/24 20:53: POC Glucose 161 H 02/19/24 06:05: WBC 10.8, RBC 3.15 L, Hgb 7.8 L, Hct 23.1 L, MCV 73.3 L, MCH 24.8 L, MCHC 33.8, RDW Std Deviation 49.9 H, RDW Coeff of [place] 18.7 H, Plt Count 193, MPV 10.2, Immature Gran % (Auto) 0.600, Neut % (Auto) 75.8 H, Lymph % (Auto) 5.6 L, [place] % (Auto) 14.2 H, Eos % (Auto) 3.4, Baso % (Auto) 0.4, Absolute Neuts (auto) 8.2 H, Absolute Lymphs (auto) 0.61 L, Nucleated RBC % 0, Crenated Cell 1+, Sodium 138, Potassium 3.0 L, Chloride 113 H, Carbon Dioxide 17.0 L, Anion Gap 8, BUN 89 H, Creatinine 7.79 H*, Estim Creat Clear Calc 5.96, Est GFR (MDRD) Af Amer 7 L, Est GFR (MDRD) Non-Af 5 L, BUN/Creatinine Ratio 11.4, Glucose 132 H, Calcium 7.5 L 02/19/24 06:35: POC Glucose 140 H Physical Exam Narrative Pleasant elderly woman awake and responsive Oral mucosa still dry Neck is supple S1-S2 regular Normal respiration Abdomen is obese soft nontender No significant peripheral edema Assessment & Plan Assessment/Plan (1) Acute renal failure: PLAN: Baseline cr around 1.3 to 1.5 admitted with cr of 12 or so Urine analysis with few leukocytes Renal ultrasound without any hydronephrosis Longstanding history of diarrhea. According to her this was attributed to metformin, discontinued. Later this was attributed to Trulicity, discontinued. Intensity of diarrhea has improved with stopping Trulicity. With IV fluids alone, creatinine has improved. Likely all volume depletion related. Continue IV fluids 1 more day. Acidosis. Likely due to GI losses. Continue bicarbonate drip for now. Hypokalemia. With correction of acidosis, add maintenance oral potassium. (2) History of chronic kidney disease:
[2024-02-19 12:41] LABS: Bedside Glucose 172 mg/dL (74-106)
[2024-02-19] MEDS: Insulin Lispro 100 UNIT/ML INSULN.PEN SC ×3 (12:45→21:29)
--- NOTE | 2024-02-19 13:57 | PCM.PN.HOSP ---
Reason for Visit Reason for Visit: Abnormal lab Subjective Subjective Patient is a 78-year-old white female who presented to emergency department at the request of her primary care physician due to abnormal labs as an outpatient. She was admitted on 02/15/2024 for the above. She indicated at that time she had not been feeling well for about 2 weeks prior to presentation having increased fatigue so a basic metabolic profile was performed and demonstrated new renal failure with a serum creatinine of greater than 12 and a BUN of 119. Patient had been taking Trulicity, metformin, and Lasix at home but she indicated on presentation that she has stopped her Trulicity several months prior as well as her metformin a few weeks prior to presentation and she not been compliant with her Lasix. She was making urine at the time of presentation in the emergency department started her on IV fluids. CT of the abdomen pelvis was done on presentation and did not show any obstructing stone or hydronephrosis. Her vital signs on presentation were unremarkable and oxygen saturations were 100% on room air. Her CBC was unremarkable other than chronic stable anemia having a hemoglobin of 9.6. Her chemistry panel showed hyponatremia with a sodium 134, hypokalemia with potassium of 2.6, serum bicarb of 13 with a normal anion gap and a BUN of 119 and a serum creatinine of 12.2. Serum glucose was 224. With her anemia, iron studies were obtained and are not consistent with iron deficiency. Ferritin was in normal range. B12 was unremarkable. Her baseline serum creatinine appears to run between 1.7 and 2. Her UA was benign. Urine sodium was elevated however she is on chronic diuretics. She did reports she had diarrhea ongoing for several months she was admitted to the telemetry floor due to hyperkalemia and started on IV fluids, nephrotoxic medications were held and nephrology was consulted. Nephrology felt that this was likely volume depletion mediated and continue to IV fluids. There were no immediate needs for renal replacement therapy. With her ongoing acidosis due to renal dysfunction she was started on a bicarb drip. Patient states overall she is feeling much better. She is anxious to go home but we did discuss we need to wait for improvement of her renal and function further. Her kidney function is markedly better than on admission but still not even close to her baseline. Not having any significant diarrhea while hospitalized. Objective Data Objective Data Vital Signs: Vital Signs Temp Pulse Resp BP Pulse Ox O2 Del Method 98.3 F 63 18 124/55 H 97 Room Air 02/19/24 09:46 02/19/24 09:46 02/19/24 09:46 02/19/24 09:46 02/19/24 09:46 02/19/24 09:46 Oxygen Delivery Method Room Air Weight: 81 kg Body Mass Index (BMI) 32.6 Intake & Output: Intake and Output for Last 24 Hours 02/17/24 02/18/24 02/19/24 23:59 23:59 23:59 Intake Total 3780 / 3780 3200.00 / 3200.00 1125 / 1125 Balance 3780 / 3780 3200.00 / 3200.00 1125 / 1125 Lab / Micro Data 02/19/24 06:05 02/19/24 06:05 Labs: Laboratory Results - last 24 hr 02/18/24 05:22: Vitamin B12 345 02/18/24 11:39: POC Glucose 188 H 02/18/24 16:07: POC Glucose 173 H 02/18/24 20:53: POC Glucose 161 H 02/19/24 06:05: WBC 10.8, RBC 3.15 L, Hgb 7.8 L, Hct 23.1 L, MCV 73.3 L, MCH 24.8 L, MCHC 33.8, RDW Std Deviation 49.9 H, RDW Coeff of [place] 18.7 H, Plt Count 193, MPV 10.2, Immature Gran % (Auto) 0.600, Neut % (Auto) 75.8 H, Lymph % (Auto) 5.6 L, [place] % (Auto) 14.2 H, Eos % (Auto) 3.4, Baso % (Auto) 0.4, Absolute Neuts (auto) 8.2 H, Absolute Lymphs (auto) 0.61 L, Nucleated RBC % 0, Crenated Cell 1+, Sodium 138, Potassium 3.0 L, Chloride 113 H, Carbon Dioxide 17.0 L, Anion Gap 8, BUN 89 H, Creatinine 7.79 H*, Estim Creat Clear Calc 5.96, Est GFR (MDRD) Af Amer 7 L, Est GFR (MDRD) Non-Af 5 L, BUN/Creatinine Ratio 11.4, Glucose 132 H, Calcium 7.5 L 02/19/24 06:35: POC Glucose 140 H 02/19/24 12:20: POC Glucose 172 H Physical Exam Const alert, oriented x3, no apparent distress and well nourished; Negative for average body habitus Constitutional Narrative: Obese, elderly, white female, sitting up in a chair reclining at the bedside, watching television, appears comfortable and nontoxic HEENT head/scalp atraumatic and moist oral mucous membranes HEENT Narrative: Mallampati 3, no thrush Head and Scalp: normocephalic Eyes PERRL and EOMs intact bilaterally; Negative for conjunctivae normal Eyes Narrative: No scleral icterus, conjunctiva are pale bilaterally Neck no lymphadenopathy and supple Neck Narrative: Trachea midline, no thyroid enlargement Resp normal respiratory effort, no retractions, no use of accessory muscles and clear to auscultation bilaterally Auscultation: Negative for rales, rhonchi or wheezes Cardio regular rate, regular rhythm, S1 normal heart sound, S2 normal heart sound, no murmurs, no rub, no gallops and no clicks GI normal to inspection, nondistended, normoactive bowel sounds, soft to palpation and non-tender Extremity Extremity Narrative: No cyanosis or clubbing, trace edema distally bilaterally, pedal pulses are 2+ Skin no wounds, skin turgor normal and no mottling Skin Narrative: Slightly pale Neuro oriented x3, moves all extremities and no focal motor deficits Speech: speech normal Psych affect normal Psych Narrative: Very pleasant, interacts appropriately Assessment & Plan Assessment/Plan (1) Acute renal failure: (2) Metabolic acidosis: (3) Diarrhea: PLAN: Plan OSVALDO on CKD stage IIIb -Baseline serum creatinine appears to be between 1.3 and 1.5 -Creatinine on admission was 12.21 -Serum creatinine now down to 7.79 -Continue to hold nephrotoxins -Continue bicarb drip as ordered by nephrology -Current plan is for IV fluids for another 24 hours and reassessment tomorrow -No need for renal replacement therapy -Nephrology following-appreciate input Metabolic acidosis -Secondary to the above -Continue bicarb drip per nephrology -Anion gap is closed and bicarb is improving Chronic diarrhea -It sounds like this may be medication mediated -She is not having a significant amount of diarrhea while she has been hospitalized -Will continue to monitor -Would recommend discontinuation of offending medications -C. difficile and enteric panel are negative Hypokalemia -Potassium is 3.0 today -Suspect severe depletion -Patient was started on scheduled potassium 40 mill equivalents p.o. twice daily today Abnormal UA -Acute cystitis suspected -Urine cultures unremarkable--> therefore UTI ruled out -Discontinue ceftriaxone Chronic anemia -Recent baseline is unclear however she did appear to be in the 9-10 range in July 2023 -Currently stable in the mid 7 range -Iron studies are not consistent with iron deficiency however she is microcytic -No signs of acute bleeding -Continue to monitor closely with drop since admission however she has been getting continuous hydration due to her renal dysfunction -Continue home iron supplementation -Check guaiac HTN/HPL -Continue home Crestor -Continue home metoprolol with hold parameters Osteoporosis -Restart alendronate at discharge -Continue home calcium carbonate -Continue home cholecalciferol DM-2 -Home Levemir is on hold due to renal dysfunction -Continue SSI -Carb controlled diet Obesity -Recommend weight loss -BMI 32.7 -Complicates treatment, prognosis, outcomes DVT prophylaxis -Continue 3 times daily heparin CODE STATUS -Full code is verified at the time of admission Charges/Coding Visit Charges Inpatient E&M: 39799 Subs Hosp L3
[2024-02-19 15:30] VITALS: BP 142/66; PULSE 71; RESP 16; TEMP 36.7; O2SAT 100
[2024-02-19] MEDS: Potassium Chloride Oral Tablet 20 MEQ 40 MEQ PO (17:04)
[2024-02-19 17:24] LABS: Bedside Glucose 171 mg/dL (74-106)
--- NOTE | 2024-02-19 17:40 | EX.PCM.CON.G ---
HPI Consult Data Date of Consult: 02/20/24 HPI Narrative Reason for Consultation: GI bleed HPI Narrative: JEANETTE NAVARRETE, is a 78 F who presented to the hospital at the request of her primary care physician secondary to abnormal labs. She has not been feeling well for the last couple weeks with increased fatigue so she had a BMP run that demonstrated renal failure with a new GFR of 3. Her baseline GFR prior to today was between 30 and 40. She was on Trulicity as well as metformin and Lasix all of which can affect her renal function but she says that she stopped her Trulicity several months ago and she stopped her metformin few weeks ago and then she is not taking Lasix. She was able to make urine today and she was started on IV fluids. Eosinophils in the CBC are negative and CT scan of her abdomen did not demonstrate an obstructing stone. Her creatinine is over 12 with a BUN of 119. Was given IV fluids as well as potassium as her potassium was 2.6. On admission her hemoglobin was 9.6 and dropped down to 6.5. She had been complaining of some melanotic stools and diarrhea. [facility] Medical History Anemia Candidal intertrigo History of gastroesophageal reflux (GERD) Hyperlipidemia Hypertension Lymphedema Morbid obesity Osteoporosis Stage 3b chronic kidney disease (CKD) Type II diabetes mellitus Home Medications folic acid 1 mg tablet 1 mg PO DAILY@0800 SUPPLEMENT 01/21/17 [History Last Taken 02/14/24] metoprolol succinate 50 mg tablet,extended release 24 hr (Toprol XL) 100 mg PO DAILY HEART 01/21/17 [History Last Taken 02/14/24] rosuvastatin 40 mg tablet (Crestor) 40 mg PO DAILY CHOLESTEROL 01/21/17 [History Last Taken 02/14/24] alendronate 70 mg tablet 70 mg PO FAUSTIN BONES 03/05/19 [History Last Taken 02/11/24] calcium carbonate 600 mg-vitamin D3 20 mcg (800 unit) tablet (Caltrate with Vitamin D3) 1 tab PO BID SUPPLEMENT 03/05/19 [History Last Taken 02/14/24] cholecalciferol (vitamin D3) 125 mcg (5,000 unit) capsule 5,000 unit PO DAILY SUPPLEMENT 03/05/19 [History Last Taken 02/14/24] ferrous sulfate 325 mg (65 mg iron) tablet 325 mg PO DAILY supplement 03/20/21 [History Last Taken 02/14/24] citalopram 20 mg tablet 20 mg PO DAILY mental health 01/22/22 [History Last Taken 02/14/24] furosemide 80 mg tablet 80 mg PO DAILY diuretic 01/22/22 [History Last Taken Unknown] nystatin 100,000 unit/gram topical powder (Nyamyc) 1 applic topical BID #60 grams 01/25/22 [Rx Last Taken 02/14/24] acetaminophen 325 mg tablet (Tylenol) 650 mg PO Q6H PRN Mild Pain (1-3)/Temp > 100.7 F 02/15/24 [History Last Taken 02/14/24] insulin detemir U-100 100 unit/mL (3 mL) subcutaneous pen (Levemir FlexPen) 10 unit subcut QHS 02/15/24 [History Last Taken 02/13/24] loperamide 2 mg tablet 2 mg PO Q4H PRN loose stool 02/15/24 [History Last Taken 02/14/24] pentoxifylline 400 mg tablet,extended release 400 mg PO DAILY 02/15/24 [History Last Taken 02/14/24] sitagliptin phosphate 50 mg tablet (Januvia) 50 mg PO DAILY 02/15/24 [History Last Taken 02/14/24] vitamin E 268 mg (400 unit) capsule 268 mg PO DAILY 02/15/24 [History Last Taken 02/14/24] Allergy/AdvReac Type Severity Reaction Status Date / Time chlorhexidine Allergy Unknown Verified 02/20/24 16:08 Iodinated Contrast Media Allergy Other Verified 02/20/24 16:08 [CONTRASTS] iodine Allergy Unknown Verified 02/20/24 16:08 latex Allergy Rash Verified 02/20/24 16:08 Family History (Updated 02/15/24 @ 21:[address] 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 Social History household members: none Smoking Status: Never smoker alcohol intake: never substance use type: does not use ROS Constitutional Constitutional: Denies chills, fatigue, fever(s) or malaise Eyes Eyes: Denies blurry vision ENT HEENT: Denies headache(s) or nasal discharge Cardiovascular Cardiovascular: Denies chest pain, dyspnea on exertion or syncope Respiratory/Chest Respiratory/Chest: Denies cough, shortness of breath at rest or shortness of breath with exertion Gastrointestinal Gastrointestinal: Reports diarrhea; Denies constipation, nausea or vomiting Genitourinary Genitourinary: Denies dysuria Neurologic Neurologic: Denies focal weakness, numbness or tremor(s) Psychiatric Psychiatric: Denies anxiety or depression Physical Exam Narrative Pleasant elderly woman awake and responsive Oral mucosa still dry Neck is supple S1-S2 regular Normal respiration Abdomen is obese soft nontender No significant peripheral edema Lab / Micro Data 02/20/24 07:00 02/20/24 07:00 Labs: Laboratory Results - last 24 hr 02/19/24 21:31: POC Glucose 160 H 02/20/24 00:00: Hgb 6.5 L, Hct 18.8 L, Blood Type B POSITIVE, Antibody Screen NEGATIVE, Crossmatch See Detail 02/20/24 05:59: POC Glucose 149 H 02/20/24 07:00: WBC 11.4 H, RBC 2.59 L, Hgb 6.7 L, Hct 19.3 L, MCV 74.5 L, MCH 25.9 L, MCHC 34.7, RDW Std Deviation 50.2 H, RDW Coeff of [place] 18.6 H, Plt Count 165, MPV 10.5, Immature Gran % (Auto) 0.500, Neut % (Auto) 76.0 H, Lymph % (Auto) 7.0 L, [place] % (Auto) 14.6 H, Eos % (Auto) 1.5, Baso % (Auto) 0.4, Absolute Neuts (auto) 8.6 H, Absolute Lymphs (auto) 0.79 L, Nucleated RBC % 0, Differential Comment , Diff Path Review February, Sodium 142, Potassium 2.9 L, Chloride 112 H, Carbon Dioxide 22.0, Anion Gap 8, BUN 88 H, Creatinine 6.70 H, Estim Creat Clear Calc 6.93, Est GFR (MDRD) Af Amer 8 L, Est GFR (MDRD) Non-Af 6 L, BUN/Creatinine Ratio 13.1, Glucose 140 H, Calcium 7.4 L, Magnesium 1.1 L 02/20/24 11:13: POC Glucose 144 H Micro: Microbiology 02/20/24 00:15 Stool Stool Occult Blood (ANDRES) - Final Occult Blood Positive Assessment & Plan Assessment/Plan (1) Acute renal failure: PLAN: Plan Patient is a 78-year-old lady who was sent to the emergency department by her primary care physician with worsening kidney function. She was also determined to have decreased hemoglobin and melanotic stool. I suspect that her increased BUN/creatinine ratio was secondary to GI bleed and acute kidney injury. Acute renal failure ? Superimposed on chronic kidney disease stage IIIb Patient admitted to regular nursing floor started on IV hydration potential nephrotoxic medications discontinued ordered renal ultrasound with consultation placed to nephrology. Anemia - Secondary to chronic disorder unlikely from chronic renal failure. However her BUN creatinine ratio is very sensitive for upper GI bleed also. She should undergo an upper endoscopy evaluate upper GI tract. If this is negative then she will need to undergo colonoscopy because she has been having some diarrhea. She was explained alternatives, risk, benefits including outstanding bleeding, infection, sepsis, perforation, need for emergent surgery and . She will have an ASA of 3. Charges/Coding Visit Charges Inpatient E&M: 14664 Init Hosp L3
[2024-02-19 21:30] VITALS: BP 139/56; PULSE 70; RESP 18; TEMP 36.9; O2SAT 98
[2024-02-19] MEDS: Calcium Carb/Vitamin D 1 TABLET Tablet PO (21:33)
[2024-02-19 22:35] LABS: Bedside Glucose 160 mg/dL (74-106)
[2024-02-20] VITALS (20 sets, daily range): BP systolic 129–204; BP diastolic 51–164; PULSE 56–123; RESP 17–24; TEMP 36.7–37.5; O2SAT 94–100
[2024-02-20 00:18] LABS: Hematocrit 18.8 % (37-47); Hemoglobin 6.5 g/dL (12.0-15.0)
[2024-02-20] MEDS: Sodium Bicarbonate 75 MEQ in 0.45% Normal Saline 1,000 ML 125 ML IV ×3 (01:05→23:47)
[2024-02-20] MEDS: proMETHazine 25 MG/ML Syringe IM (01:29)
[2024-02-20] MEDS: Pramipexole Di-HCl 0.125 MG Tablet PO (02:57)
[2024-02-20 06:17] LABS: Bedside Glucose 149 mg/dL (74-106)
[2024-02-20 07:56] LABS: Anion Gap 8 (5-15); BUN 88 mg/dL (7-18); BUN/Creat Ratio 13.1 RATIO (10-20); Calcium,Total 7.4 mg/dL (8.5-10.1); Chloride 112 mmol/L (98-107); EST Glomerular Filtration Rate 6 mL/min (>60); Est Glom Filt Rate - Afr Amer 8 mL/min (>60); Estimated Creatinine Clearance 6.93 ml/min; Glucose 140 mg/dL (74-106); Magnesium 1.1 mg/dL (1.6-2.6); Potassium 2.9 mmol/L (3.5-5.1); Sodium Level 142 mmol/L (136-145)
[2024-02-20] MEDS: Citalopram 20 MG Tablet PO (08:03)
[2024-02-20] MEDS: Ferrous Sulfate 325 MG Tablet PO (08:03)
[2024-02-20] MEDS: Calcium Carb/Vitamin D 1 TABLET Tablet PO ×2 (08:03→21:00)
[2024-02-20] MEDS: Folic Acid 1 MG Tablet PO (08:03)
[2024-02-20] MEDS: Atorvastatin Calcium 80 MG Tablet PO (08:03)
[2024-02-20] MEDS: Metoprolol(XL)Succ 100 MG Tablet PO (08:03)
[2024-02-20] MEDS: Pentoxifylline 400 MG Tablet PO (08:05)
[2024-02-20] MEDS: Cholecalciferol (Vit D3) 125 MCG CAPSULE (5,000 UNITS) PO (08:05)
[2024-02-20 08:22] LABS: Absolute Lymphocyte Count 0.79 X10^3/uL (0.83-4.51); Absolute Neutrophil Count 8.6 X10^3/uL (2.0-7.7); Basophil# 0.04 X10^3/uL; Basophil% 0.4 % (0-1); Eosinophil# 0.17 X10^3/uL; Eosinophils% 1.5 % (0-5); Hematocrit 19.3 % (37-47); Hemoglobin 6.7 g/dL (12.0-15.0); Lymphocyte # 0.79 X10^3/ul (0.83-4.51); Mean Corp Hgb Conc 34.7 g/dL (32-36); Mean Corpuscular Hgb 25.9 pg (27.0-32.0); Mean Corpuscular Volume 74.5 fL (81-99); Mean Platelet Vol. 10.5 fl (6.2-12.0); Monocyte# 1.66 X10^3/uL; Monocyte% 14.6 % (0-10); NRBC Flagged by Analyzer 0 % (0-5); Neutrophil # 8.64 X10^3/uL (2.7-7.7); POSITIVE DIFFERENTIAL YES; Platelet Count 165 K/mm3 (150-450); RBC Distribution Width CV 18.6 % (11.6-14.6); RBC Distribution Width SD 50.2 fl (35.1-43.9); Red Blood Count 2.59 M/mm3 (4.2-5.4); White Blood Count 11.4 K/mm3 (4.4-11.0)
[2024-02-20 08:27] LABS: Differential Indicated SCAN CRITERIA MET
[2024-02-20] MEDS: Pantoprazole Sodium 40 MG in 0.9% Normal Saline (100mL MB+) 100 ML 330 MG IV ×2 (11:11→20:58)
[2024-02-20 11:42] LABS: Bedside Glucose 144 mg/dL (74-106)
[2024-02-20] MEDS: Magnesium Sulfate 4gm/100mL 4 GM/100 ML IV.SOLN. IV (12:06)
--- NOTE | 2024-02-20 13:56 | PN.HOSP_ITS ---
Reason for Visit Reason for Visit: Abnormal lab Subjective Subjective No issues overnight. We did get her Hemoccult back and was found to be positive. Hemoglobin has dropped to 6.9 with a repeat at 6.7. 2 units of packed red blood cells have been given and GI has been consulted. Plan is for EGD later today. Patient states she had a colonoscopy remotely but does not remember when and states it has been a while. Renal function continues to improve and patient states she continues to feel better. Objective Data Objective Data Vital Signs: Vital Signs Temp Pulse Resp BP Pulse Ox O2 Del Method 98.4 F 96 24 H 157/77 H 95 Room Air 02/20/24 05:00 02/20/24 08:03 02/20/24 05:00 02/20/24 05:00 02/20/24 05:00 02/20/24 05:00 Oxygen Delivery Method Room Air Weight: 81 kg Body Mass Index (BMI) 32.6 Intake & Output: Intake and Output for Last 24 Hours 02/18/24 02/19/24 02/20/24 23:59 23:59 23:59 Intake Total 3200.00 / 3200.00 3220 / 3220 2097.50 / 2097.50 Output Total Balance 3200.00 / 3200.00 3219 / 3219 2097.50 / 2097.50 Lab / Micro Data 02/20/24 07:00 02/20/24 07:00 Labs: Laboratory Results - last 24 hr 02/19/24 16:59: POC Glucose 171 H 02/19/24 21:31: POC Glucose 160 H 02/20/24 00:00: Hgb 6.5 L, Hct 18.8 L, Blood Type B POSITIVE, Antibody Screen NEGATIVE, Crossmatch See Detail 02/20/24 05:59: POC Glucose 149 H 02/20/24 07:00: WBC 11.4 H, RBC 2.59 L, Hgb 6.7 L, Hct 19.3 L, MCV 74.5 L, MCH 25.9 L, MCHC 34.7, RDW Std Deviation 50.2 H, RDW Coeff of [place] 18.6 H, Plt Count 165, MPV 10.5, Immature Gran % (Auto) 0.500, Neut % (Auto) 76.0 H, Lymph % (Auto) 7.0 L, [place] % (Auto) 14.6 H, Eos % (Auto) 1.5, Baso % (Auto) 0.4, Absolute Neuts (auto) 8.6 H, Absolute Lymphs (auto) 0.79 L, Nucleated RBC % 0, Differential Comment , Diff Path Review February foll, Sodium 142, Potassium 2.9 L, Chloride 112 H, Carbon Dioxide 22.0, Anion Gap 8, BUN 88 H, Creatinine 6.70 H, Estim Creat Clear Calc 6.93, Est GFR (MDRD) Af Amer 8 L, Est GFR (MDRD) Non-Af 6 L, BUN/Creatinine Ratio 13.1, Glucose 140 H, Calcium 7.4 L, Magnesium 1.1 L 02/20/24 11:13: POC Glucose 144 H Micro: Microbiology 02/20/24 00:15 Stool Stool Occult Blood (ANDRES) - Final Occult Blood Positive Physical Exam Narrative Const alert, oriented x3, no apparent distress and well nourished; Negative for average body habitus or healthy appearing Constitutional Narrative: Obese, elderly, white female, sitting up in a chair reclining at the bedside, reading the paper and dozing off, appears comfortable and nontoxic HEENT head/scalp atraumatic and moist oral mucous membranes HEENT Narrative: Mallampati 3, no thrush Head and Scalp: normocephalic Eyes Negative for conjunctivae normal Resp normal respiratory effort, no retractions, no use of accessory muscles and clear to auscultation bilaterally Auscultation: Negative for rales, rhonchi or wheezes Cardio regular rate, regular rhythm, S1 normal heart sound, S2 normal heart sound, no murmurs, no rub, no gallops and no clicks GI normal to inspection, nondistended, normoactive bowel sounds, soft to palpation and non-tender Extremity no clubbing, cyanosis or edema Extremity Narrative: Skin on legs is very dry Neuro oriented x3, moves all extremities and no focal motor deficits Speech: speech normal Psych affect normal Psych Narrative: Very pleasant, interacts appropriately Assessment & Plan Assessment/Plan (1) Acute renal failure: (2) Metabolic acidosis: (3) Diarrhea: PLAN: Plan OSVALDO on CKD stage IIIb -Baseline serum creatinine appears to be between 1.3 and 1.5 -Creatinine on admission was 12.21 -Serum creatinine now down to 6.70 -Continue to hold nephrotoxins -Continue bicarb drip as ordered by nephrology--> serum bicarb is normalizing and I do suspect they may discontinue this and transition her to a different fluid but will await their input -No need for renal replacement therapy -Nephrology following-appreciate input Metabolic acidosis -Secondary to the above -This is resolving on bicarb drip with serum bicarb up to 22 -Continue bicarb drip per nephrology--> awaiting nephrology input for today Chronic diarrhea -It sounds like this may be medication mediated -Overall improved but increased throughout the evening -Anticipate patient may be getting a colonoscopy while she is hospitalized due to her anemia so we will hold off on Imodium for now -Will continue to monitor -C. difficile and enteric panel are negative Hypokalemia -Persistently low at 2.9 -Magnesium is low so we will replace this and continue to replace potassium -Suspect severe depletion with ongoing issues having chronic diarrhea -Patient was started on scheduled potassium 40 mill equivalents p.o. twice daily yesterday and will give an extra 40 mill equivalents today Hypomagnesemia -4 g IV bolus -Recheck in a.m. -Correction should help with potassium Acute on chronic anemia -Recent baseline is unclear however she did appear to be in the 9-10 range in July 2023 -Hemoglobin down to 6.7 this morning--> 2 units packed red blood cells given -Iron studies where not consistent with iron deficiency however she is microcytic -Guaiac was obtained and found to be positive -Continue home iron supplementation -GI is consulted and plan is for EGD today and possible colonoscopy tomorrow HTN/HPL -Continue home Crestor -Continue home metoprolol with hold parameters Osteoporosis -Restart alendronate at discharge -Continue home calcium carbonate -Continue home cholecalciferol DM-2 -Home Levemir is on hold due to renal dysfunction -AM fasting blood sugar was only 140 -Continue SSI -Carb controlled diet Obesity -Recommend weight loss -BMI 32.7 -Complicates treatment, prognosis, outcomes DVT prophylaxis -SCDs -Subcu heparin on hold due to bleeding CODE STATUS -Full code is verified at the time of admission Charges/Coding Visit Charges Inpatient E&M: 77111 Subs Hosp L2
[2024-02-20] MEDS: Nystatin Powder 15gm Bottle 1 APPLIC TOPICAL ×2 (14:50→20:59)
[2024-02-20] MEDS: Potassium Chloride 10mEq/100mL 10 MEQ/100 ML IV.SOLN. 100 MEQ IV BOLUS ×2 (16:00→17:05)
[2024-02-20] MEDS: Lactated Ringers 1,000 ML 15 ML IV (16:04)
--- NOTE | 2024-02-20 16:11 | PN.RENAL_ITS ---
Subjective Subjective no new events Objective Data Objective Data Vital Signs: Vital Signs Temp Pulse Resp BP Pulse Ox O2 Del Method 98.6 F 96 18 147/80 H 98 Room Air 02/20/24 09:30 02/20/24 09:30 02/20/24 09:30 02/20/24 09:30 02/20/24 09:30 02/20/24 09:30 Oxygen Delivery Method Room Air Weight: 81 kg Body Mass Index (BMI) 32.6 Intake & Output: Intake and Output for Last 24 Hours 02/18/24 02/19/24 02/20/24 23:59 23:59 23:59 Intake Total 3200.00 / 3200.00 3220 / 3220 2097.50 / 2097.50 Output Total Balance 3200.00 / 3200.00 3219 / 3219 2097.50 / 2097.50 Lab / Micro Data 02/20/24 07:00 02/20/24 07:00 Labs: Laboratory Results - last 24 hr 02/19/24 16:59: POC Glucose 171 H 02/19/24 21:31: POC Glucose 160 H 02/20/24 00:00: Hgb 6.5 L, Hct 18.8 L, Blood Type B POSITIVE, Antibody Screen NEGATIVE, Crossmatch See Detail 02/20/24 05:59: POC Glucose 149 H 02/20/24 07:00: WBC 11.4 H, RBC 2.59 L, Hgb 6.7 L, Hct 19.3 L, MCV 74.5 L, MCH 25.9 L, MCHC 34.7, RDW Std Deviation 50.2 H, RDW Coeff of [place] 18.6 H, Plt Count 165, MPV 10.5, Immature Gran % (Auto) 0.500, Neut % (Auto) 76.0 H, Lymph % (Auto) 7.0 L, [place] % (Auto) 14.6 H, Eos % (Auto) 1.5, Baso % (Auto) 0.4, Absolute Neuts (auto) 8.6 H, Absolute Lymphs (auto) 0.79 L, Nucleated RBC % 0, D ifferential Comment , Diff Path Review February, Sodium 142, Potassium 2.9 L, Chloride 112 H, Carbon Dioxide 22.0, Anion Gap 8, BUN 88 H, Creatinine 6.70 H, Estim Creat Clear Calc 6.93, Est GFR (MDRD) Af Amer 8 L, Est GFR (MDRD) Non-Af 6 L, BUN/Creatinine Ratio 13.1, Glucose 140 H, Calcium 7.4 L, Magnesium 1.1 L 02/20/24 11:13: POC Glucose 144 H Micro: Microbiology 02/20/24 00:15 Stool Stool Occult Blood (ANDRES) - Final Occult Blood Positive Physical Exam Narrative Pleasant elderly woman awake and responsive Oral mucosa still dry Neck is supple S1-S2 regular Normal respiration Abdomen is obese soft nontender No significant peripheral edema Assessment & Plan Assessment/Plan (1) Acute renal failure: PLAN: Baseline cr around 1.3 to 1.5 admitted with cr of 12 or so Urine analysis with few leukocytes Renal ultrasound without any hydronephrosis Longstanding history of diarrhea. According to her this was attributed to metformin, discontinued. Later this was attributed to Trulicity, discontinued. Intensity of diarrhea has improved with stopping Trulicity. With IV fluids alone, creatinine has improved. Likely all volume depletion related. Acidosis. Likely due to GI losses. better Hypokalemia. With correction of acidosis, added maintenance oral potassium. (2) History of chronic kidney disease:
[2024-02-20] MEDS: 0.9% Normal Saline (Pres. free 10 ML Vial ×2 (18:05→18:08)
[2024-02-20] MEDS: Epinephrine (1 mg/ml) 1 MG/ML VIAL ×2 (18:05→18:08)
--- NOTE | 2024-02-20 18:28 | OP.CCLET_ITS ---
02/20/2024 Elena Mims [address] [place] [address] Re : Upper GI endoscopy procedure for Jeanette Cordova Dear Dr. Mims This procedure was performed on Tuesday, February 20, 2024. My impressions and recommendations are as follows: Impressions : - Normal esophagus. - Normal esophagus. - Red blood in the gastric body. - Non-obstructing spurting duodenal ulcer with a visible vessel. There is no evidence of perforation. Injected. Treated with a heater probe. Clips were placed. Clip clerk to justice: [id number]. - No specimens collected. Recommendations : - NPO. - Continue present medications. - Give Protonix (pantoprazole): initiate therapy with 80 mg IV bolus, then 8 mg/hr IV by continuous infusion. My findings are described in the full procedure note, which is enclosed. If I can be of further assistance, please feel free to contact me at . Sincerely, Dewey Campos, 02/20/2024 6:28:11 PM This report has been signed electronically.
--- NOTE | 2024-02-20 18:28 | OP.EGD_ITS ---
Patient Name: eJanette Cordova Procedure Date: 02/20/2024 5:38 PM Date of : 1945 Age: 78 Procedure: Upper GI endoscopy Indications: Iron deficiency anemia, Melena Providers: Dewey Campos DO Medicines: Monitored Anesthesia Care Patient Profile: This is a 78 year old female. Refer to note in patient chart for documentation of history and physical. Complications: No immediate complications. Procedure: Pre-Anesthesia Assessment: - Prior to the procedure, a History and Physical was performed, and patient medications and allergies were reviewed. The patient is competent. The risks and benefits of the procedure and the sedation options and risks were discussed with the patient. All questions were answered and informed consent was obtained. Patient identification and proposed procedure were verified by the physician in the pre-procedure area. Mental Status Examination: alert and oriented. Airway Examination: normal oropharyngeal airway and neck mobility. CV Examination: normal. Prophylactic Antibiotics: The patient does not require prophylactic antibiotics. Prior Anticoagulants: The patient has taken no anticoagulant or antiplatelet agents. ASA Grade Assessment: IV - A patient with severe systemic disease that is a constant threat to life. After reviewing the risks and benefits, the patient was deemed in satisfactory condition to undergo the procedure. The anesthesia plan was to use monitored anesthesia care (MAC). Immediately prior to administration of medications, the patient was re-assessed for adequacy to receive sedatives. The heart rate, respiratory rate, oxygen saturations, blood pressure, adequacy of pulmonary ventilation, and response to care were monitored throughout the procedure. The physical status of the patient was re-assessed after the procedure. After obtaining informed consent, the endoscope was passed under direct vision. Throughout the procedure, the patient's blood pressure, pulse, and oxygen saturations were monitored continuously. The gastroscope was introduced through the mouth, and advanced to the second part of duodenum. The upper GI endoscopy was accomplished without difficulty. The patient tolerated the procedure well. Scope In: 5:58:55 PM Scope Out: 6:16:30 PM Total Procedure Duration Time 0 hours 17 minutes 35 seconds Findings: The examined esophagus was normal. The examined esophagus was normal. Red blood was found in the gastric body. One non-obstructing spurting cratered duodenal ulcer with a visible vessel was found in the first portion of the duodenum. The lesion was 10 mm in largest dimension. There is no evidence of perforation. Area was successfully injected with 20 mL of a 0.1 mg/mL solution of epinephrine for drug delivery. Coagulation for hemostasis using heater probe was successful. To prevent bleeding post-intervention, two hemostatic clips were successfully placed. Clip wafer cutter: [employer]. There was no bleeding at the end of the procedure. Impression: - Normal esophagus. - Normal esophagus. - Red blood in the gastric body. - Non-obstructing spurting duodenal ulcer with a visible vessel. There is no evidence of perforation. Injected. Treated with a heater probe. Clips were placed. Clip wafer cutter: [employer]. - No specimens collected. Recommendation: - NPO. - Continue present medications. - Give Protonix (pantoprazole): initiate therapy with 80 mg IV bolus, then 8 mg/hr IV by continuous infusion. Procedure Code(s): --- Professional --- 88332, Esophagogastroduodenoscopy, flexible, transoral; with control of bleeding, any method 46248, 59,51, Esophagogastroduodenoscopy, flexible, transoral; with directed submucosal injection(s), any substance CPT copyright 2021 [employer]. All rights reserved. The codes documented in this report are preliminary and upon market research associate review may be revised to meet current compliance requirements. Dewey Campos DO 02/20/2024 6:28:11 PM This report has been signed electronically. Number of Addenda: 0 Note Initiated On: 02/20/2024 5:38 PM
[2024-02-20] MEDS: Insulin Lispro 100 UNIT/ML INSULN.PEN SC (21:04)
[2024-02-20 21:32] LABS: Bedside Glucose 178 mg/dL (74-106)
[2024-02-21] VITALS (18 sets, daily range): BP systolic 84–165; BP diastolic 40–95; PULSE 50–87; RESP 12–21; TEMP 36.2–36.7; O2SAT 91–100; BMI 34.0
[2024-02-21] MEDS: Nystatin Powder 15gm Bottle 1 APPLIC TOPICAL ×2 (06:28→10:42)
[2024-02-21 06:43] LABS: Hematocrit 19.6 % (37-47); Hemoglobin 6.6 g/dL (12.0-15.0); Mean Corp Hgb Conc 33.7 g/dL (32-36); Mean Corpuscular Hgb 25.8 pg (27.0-32.0); Mean Corpuscular Volume 76.6 fL (81-99); Mean Platelet Vol. 10.5 fl (6.2-12.0); Platelet Count 154 K/mm3 (150-450); Red Blood Count 2.56 M/mm3 (4.2-5.4)
[2024-02-21 06:59] LABS: Anion Gap 8 (5-15); BUN 82 mg/dL (7-18); BUN/Creat Ratio 14.1 RATIO (10-20); Calcium,Total 7.7 mg/dL (8.5-10.1); Chloride 112 mmol/L (98-107); EST Glomerular Filtration Rate 8 mL/min (>60); Est Glom Filt Rate - Afr Amer 9 mL/min (>60); Estimated Creatinine Clearance 8.16 ml/min; Glucose 117 mg/dL (74-106); Magnesium 1.9 mg/dL (1.6-2.6); Phosphorus 2.4 mg/dL (2.5-4.9); Potassium 2.9 mmol/L (3.5-5.1); Sodium Level 145 mmol/L (136-145)
[2024-02-21] MEDS: Cholecalciferol (Vit D3) 125 MCG CAPSULE (5,000 UNITS) PO (08:14)
[2024-02-21] MEDS: Ferrous Sulfate 325 MG Tablet PO (08:14)
[2024-02-21] MEDS: Calcium Carb/Vitamin D 1 TABLET Tablet PO ×2 (08:15→20:52)
[2024-02-21] MEDS: Folic Acid 1 MG Tablet PO (08:15)
[2024-02-21] MEDS: Citalopram 20 MG Tablet PO (08:15)
[2024-02-21] MEDS: Pantoprazole Sodium 40 MG in 0.9% Normal Saline (100mL MB+) 100 ML 330 MG IV ×2 (08:19→20:53)
[2024-02-21] MEDS: Pentoxifylline 400 MG Tablet PO (08:19)
[2024-02-21] MEDS: Lactated Ringers 1,000 ML 125 ML IV ×2 (08:20→18:50)
[2024-02-21] MEDS: Potassium Chloride Oral Tablet 20 MEQ 60 MEQ PO ×2 (08:20→20:53)
[2024-02-21] MEDS: Metoprolol(XL)Succ 100 MG Tablet PO (08:21)
[2024-02-21 08:54] LABS: Bedside Glucose 100 mg/dL (74-106)
[2024-02-21 11:18] LABS: Bedside Glucose 122 mg/dL (74-106)
--- NOTE | 2024-02-21 11:35 | PCM.PN.REN ---
Subjective Subjective Events noted. GI bleed. S/p endoscopy, receiving PRBC today. Objective Data Objective Data Vital Signs: Vital Signs Temp Pulse Resp BP Pulse Ox O2 Del Method O2 Flow Rate 97.1 F L 58 L 14 160/61 H 100 Room Air 2 02/21/24 10:54 02/21/24 10:54 02/21/24 10:54 02/21/24 10:54 02/21/24 10:54 02/21/24 10:54 02/20/24 18:38 Oxygen Flow Rate (L/min) 2 Oxygen Delivery Method Room Air Weight: 83.9 kg Body Mass Index (BMI) 34.0 Intake & Output: Intake and Output for Last 24 Hours 02/19/24 02/20/24 02/21/24 23:59 23:59 23:59 Intake Total 3220 / 3220 3653.50 / 3653.50 1428.92 / 1428.92 Output Total 325 / 325 1250 / 1250 Balance 3219 / 3219 3328.50 / 3328.50 178.92 / 178.92 Lab / Micro Data 02/21/24 04:25 02/21/24 04:25 Labs: Laboratory Results - last 24 hr 02/20/24 00:00: Crossmatch See Detail 02/20/24 00:00: Crossmatch See Detail 02/20/24 11:13: POC Glucose 144 H 02/20/24 20:48: POC Glucose 178 H 02/21/24 04:25: WBC 13.0 H, RBC 2.56 L, Hgb 6.6 L, Hct 19.6 L, MCV 76.6 L, MCH 25.8 L, MCHC 33.7, RDW Std Deviation 50.0 H, RDW Coeff of Juan Diego 18.0 H, Plt Count 154, MPV 10.5, Sodium 145, Potassium 2.9 L, Chloride 112 H, Carbon Dioxide 25.0, Anion Gap 8, BUN 82 H, Creatinine 5.80 H, Estim Creat Clear Calc 8.16, Est GFR (MDRD) Af Amer 9 L, Est GFR (MDRD) Non-Af 8 L, BUN/Creatinine Ratio 14.1, Glucose 117 H, Calcium 7.7 L, Phosphorus 2.4 L, Magnesium 1.9 02/21/24 08:13: POC Glucose 100 02/21/24 10:44: POC Glucose 122 H Micro: Microbiology 02/20/24 00:15 Stool Stool Occult Blood (ANDRES) - Final Occult Blood Positive Physical Exam Narrative Pleasant elderly woman awake and responsive Oral mucosa still dry Neck is supple S1-S2 regular Normal respiration Abdomen is obese soft nontender No significant peripheral edema Assessment & Plan Assessment/Plan (1) Acute renal failure: PLAN: Baseline cr around 1.3 to 1.5 admitted with cr of 12 or so Urine analysis with few leukocytes Renal ultrasound without any hydronephrosis Longstanding history of diarrhea. According to her this was attributed to metformin, discontinued. Later this was attributed to Trulicity, discontinued. Intensity of diarrhea has improved with stopping Trulicity. With IV fluids alone, creatinine has improved. Creatinine continues to improve. Acidosis. Likely due to GI losses. better. DC bicarbonate drip,. Hypokalemia. With correction of acidosis, added maintenance oral potassium. Anemia. Due to GI bleed. Getting PRBC today. (2) History of chronic kidney disease:
--- NOTE | 2024-02-21 13:11 | PCM.PN.HOSP ---
Reason for Visit Reason for Visit: Diagnoses Acidosis, unspecified (02/15/24) Acute kidney failure, unspecified (02/15/24) Diarrhea, unspecified (02/15/24) Personal history of other diseases of urinary system (02/15/24) Subjective Subjective EGD done last evening and found a spurting duodenal ulcer with a visible vessel and was treated with injection, heater probe, and clips. No perforation was noted. She was placed on a Protonix drip and given 1 unit of blood and placed in the ICU. She has been overtly hemodynamically stable however her hemoglobin this morning was 6.6 so 2 more units of packed red blood cells were given. Renal function continues improved. Patient has no complaints at this time. She is just grateful she was hospitalized why this occurred. Objective Data Objective Data Vital Signs: Vital Signs Temp Pulse Resp BP Pulse Ox O2 Del Method O2 Flow Rate 97.2 F L 57 L 14 84/71 L 100 Room Air 2 02/21/24 12:00 02/21/24 12:00 02/21/24 12:00 02/21/24 12:00 02/21/24 12:00 02/21/24 12:00 02/20/24 18:38 Oxygen Flow Rate (L/min) 2 Oxygen Delivery Method Room Air Weight: 83.9 kg Body Mass Index (BMI) 34.0 Intake & Output: Intake and Output for Last 24 Hours 02/19/24 02/20/24 02/21/24 23:59 23:59 23:59 Intake Total 3220 / 3220 3653.50 / 3653.50 1428.92 / 1428.92 Output Total 325 / 325 1250 / 1250 Balance 3219 / 3219 3328.50 / 3328.50 178.92 / 178.92 Lab / Micro Data 02/21/24 04:25 02/21/24 04:25 Labs: Laboratory Results - last 24 hr 02/20/24 00:00: Crossmatch See Detail 02/20/24 00:00: Crossmatch See Detail 02/20/24 20:48: POC Glucose 178 H 02/21/24 04:25: WBC 13.0 H, RBC 2.56 L, Hgb 6.6 L, Hct 19.6 L, MCV 76.6 L, MCH 25.8 L, MCHC 33.7, RDW Std Deviation 50.0 H, RDW Coeff of Juan Diego 18.0 H, Plt Count 154, MPV 10.5, Sodium 145, Potassium 2.9 L, Chloride 112 H, Carbon Dioxide 25.0, Anion Gap 8, BUN 82 H, Creatinine 5.80 H, Estim Creat Clear Calc 8.16, Est GFR (MDRD) Af Amer 9 L, Est GFR (MDRD) Non-Af 8 L, BUN/Creatinine Ratio 14.1, Glucose 117 H, Calcium 7.7 L, Phosphorus 2.4 L, Magnesium 1.9 02/21/24 08:13: POC Glucose 100 02/21/24 10:44: POC Glucose 122 H Micro: Microbiology 02/20/24 00:15 Stool Stool Occult Blood (ANDRES) - Final Occult Blood Positive Physical Exam Narrative Const alert, oriented x3, no apparent distress and well nourished; Negative for average body habitus or healthy appearing Constitutional Narrative: Obese, elderly, white female, sitting up in bed in the intensive care unit, appears comfortable, nontoxic, is pale HEENT head/scalp atraumatic and moist oral mucous membranes HEENT Narrative: Mallampati 3, no thrush Head and Scalp: normocephalic Eyes PERRL and EOMs intact bilaterally; Negative for conjunctivae normal Eyes Narrative: No scleral icterus, conjunctiva are pale bilaterally Neck no lymphadenopathy and supple Neck Narrative: Trachea midline, no thyroid enlargement Resp normal respiratory effort, no retractions, no use of accessory muscles and clear to auscultation bilaterally Resp Narrative: No crackles despite volume resuscitation and blood products being given Auscultation: Negative for rales, rhonchi or wheezes Cardio regular rate, regular rhythm, S1 normal heart sound, S2 normal heart sound, no murmurs, no rub, no gallops and no clicks GI normal to inspection, nondistended, normoactive bowel sounds, soft to palpation and non-tender Extremity no clubbing, cyanosis or edema Extremity Narrative: Skin on legs is very dry Skin no wounds, skin turgor normal and no mottling Skin Narrative: Significantly pale today Neuro oriented x3, moves all extremities and no focal motor deficits Speech: speech normal Psych affect normal Psych Narrative: Very pleasant, interacts appropriately Assessment & Plan Assessment/Plan (1) Duodenal ulcer: (2) Upper GI bleed: (3) Acute renal failure: (4) Metabolic acidosis: (5) Diarrhea: PLAN: Plan OSVALDO on CKD stage IIIb -Baseline serum creatinine appears to be between 1.3 and 1.5 -Creatinine on admission was 12.21 -Serum creatinine now down to 5.8 -Continue to hold nephrotoxins -Discontinue bicarb drip -Transition to LR at 125 cc/h -No need for renal replacement therapy -Nephrology following-appreciate input Metabolic acidosis -Resolved -Serum bicarb is 25 -Discontinue serum bicarb drip -Transition to LR Upper GI bleed secondary to duodenal ulcer -EGD done yesterday showed a spurting duodenal ulcer which was treated with injection and coagulation with heater probe as well as clips for hemostasis -Hemoglobin has dropped to 6.6 despite 1 unit transfused after procedure -Will transfuse 2 more units today and repeat hemoglobin following -No more signs of active bleeding however will monitor hemoglobin every 6 -Continue Protonix drip -N.p.o. until GI allows p.o. diet Acute on chronic anemia -Recent baseline is unclear however she did appear to be in the 9-10 range in July 2023 -Secondary to duodenal ulcer -Patient was transfused 1 unit and will give 2 more units today -Cycle hemoglobin every 6 hours -Continue home p.o. iron supplementation Chronic diarrhea -C. difficile and enteric panel is pending -May have been worsening recently due to GI bleeding -I am not convinced that the GI bleed is the sole reason for her diarrhea however -Continue to monitor Hypokalemia -Still low but should start to improve as we have corrected her magnesium level -60 mill equivalents p.o. potassium given twice daily today and then repeat in a.m. Hypomagnesemia - resolved HTN/HPL -Continue home Crestor -Hold metoprolol Osteoporosis -Restart alendronate at discharge -Continue home calcium carbonate -Continue home cholecalciferol DM-2 -Home Levemir is on hold due to renal dysfunction -AM fasting blood sugar was only 117 -Continue SSI -Carb controlled diet Obesity -Recommend weight loss -BMI 32.7 -Complicates treatment, prognosis, outcomes DVT prophylaxis -SCDs -Subcu heparin on hold due to bleeding CODE STATUS -Full code is verified at the time of admission Charges/Coding Visit Charges Inpatient E&M: 00491 [facility] Hosp L3
[2024-02-21 13:53] LABS: Hemoglobin 9.1 g/dL (12.0-15.0)
[2024-02-21] MEDS: Sodium Phosphate/Na Biphos 15 MMOL in 0.9% Normal Saline (250mL Bag) 250 ML 125 MMOL IV (15:32)
[2024-02-21 16:56] LABS: Bedside Glucose 107 mg/dL (74-106)
--- NOTE | 2024-02-21 18:22 | EX.PCM.PN.GI ---
Subjective Subjective Patient underwent emergent endoscopy yesterday. She is tolerating a diet. She was discovered to have severe upper GI bleed. She has been on PPI drip. Objective Data Objective Data Vital Signs: Vital Signs Temp Pulse Resp BP Pulse Ox O2 Del Method O2 Flow Rate 98.0 F 87 18 158/47 H 99 Room Air 2 02/21/24 17:27 02/21/24 17:27 02/21/24 17:27 02/21/24 17:27 02/21/24 17:27 02/21/24 17:27 02/20/24 18:38 Oxygen Flow Rate (L/min) 2 Oxygen Delivery Method Room Air Weight: 184 lb 15.485 oz Body Mass Index (BMI) 34.0 Intake & Output: Intake and Output for Last 24 Hours 02/19/24 02/20/24 02/21/24 23:59 23:59 23:59 Intake Total 3220 / 3220 3653.50 / 3653.50 1684.92 / 1684.92 Output Total 325 / 325 1250 / 1250 Balance 3219 / 3219 3328.50 / 3328.50 434.92 / 434.92 Lab / Micro Data 02/21/24 13:40 02/21/24 04:25 Labs: Laboratory Results - last 24 hr 02/20/24 00:00: Crossmatch See Detail 02/20/24 00:00: Crossmatch See Detail 02/20/24 20:48: POC Glucose 178 H 02/21/24 04:25: WBC 13.0 H, RBC 2.56 L, Hgb 6.6 L, Hct 19.6 L, MCV 76.6 L, MCH 25.8 L, MCHC 33.7, RDW Std Deviation 50.0 H, RDW Coeff of Juan Diego 18.0 H, Plt Count 154, MPV 10.5, Sodium 145, Potassium 2.9 L, Chloride 112 H, Carbon Dioxide 25.0, Anion Gap 8, BUN 82 H, Creatinine 5.80 H, Estim Creat Clear Calc 8.16, Est GFR (MDRD) Af Amer 9 L, Est GFR (MDRD) Non-Af 8 L, BUN/Creatinine Ratio 14.1, Glucose 117 H, Calcium 7.7 L, Phosphorus 2.4 L, Magnesium 1.9 02/21/24 08:13: POC Glucose 100 02/21/24 10:44: POC Glucose 122 H 02/21/24 13:40: Hgb 9.1 L 02/21/24 16:37: POC Glucose 107 H Micro: Microbiology 02/20/24 00:51 Stool Stool Lactoferrin - Final 02/20/24 00:51 Stool Enteric Bacteriology - Preliminary 02/20/24 00:51 Stool Clostridioides difficile (PCR) - Final 02/20/24 00:15 Stool Stool Occult Blood (ANDRES) - Final Occult Blood Positive Physical Exam Narrative Const alert, oriented x3, no apparent distress and well nourished; Negative for average body habitus or healthy appearing Constitutional Narrative: Obese, elderly, white female, sitting up in bed in the intensive care unit, appears comfortable, nontoxic, is pale HEENT head/scalp atraumatic and moist oral mucous membranes HEENT Narrative: Mallampati 3, no thrush Head and Scalp: normocephalic Eyes PERRL and EOMs intact bilaterally; Negative for conjunctivae normal Eyes Narrative: No scleral icterus, conjunctiva are pale bilaterally Neck no lymphadenopathy and supple Neck Narrative: Trachea midline, no thyroid enlargement Resp normal respiratory effort, no retractions, no use of accessory muscles and clear to auscultation bilaterally Resp Narrative: No crackles despite volume resuscitation and blood products being given Auscultation: Negative for rales, rhonchi or wheezes Cardio regular rate, regular rhythm, S1 normal heart sound, S2 normal heart sound, no murmurs, no rub, no gallops and no clicks GI normal to inspection, nondistended, normoactive bowel sounds, soft to palpation and non-tender Extremity no clubbing, cyanosis or edema Extremity Narrative: Skin on legs is very dry Skin no wounds, skin turgor normal and no mottling Skin Narrative: Significantly pale today Neuro oriented x3, moves all extremities and no focal motor deficits Speech: speech normal Psych affect normal Psych Narrative: Very pleasant, interacts appropriately Assessment & Plan Assessment/Plan (1) Acute renal failure: PLAN: Plan Patient is a 78-year-old lady who was sent to the emergency department by her primary care physician with worsening kidney function. She was also determined to have decreased hemoglobin and melanotic stool. I suspect that her increased BUN/creatinine ratio was secondary to GI bleed and acute kidney injury. Acute renal failure ? Superimposed on chronic kidney disease stage IIIb Patient admitted to regular nursing floor started on IV hydration potential nephrotoxic medications discontinued ordered renal ultrasound with consultation placed to nephrology. Anemia - Secondary to chronic disorder unlikely from chronic renal failure. However her BUN creatinine ratio is very sensitive for upper GI bleed also. She should undergo an upper endoscopy evaluate upper GI tract. If this is negative then she will need to undergo colonoscopy because she has been having some diarrhea. 02/21/24-findings from a upper endoscopy: Findings: The examined esophagus was normal. The examined esophagus was normal. Red blood was found in the gastric body. One non-obstructing spurting cratered duodenal ulcer with a visible vessel was found in the first portion of the duodenum. The lesion was 10 mm in largest dimension. There is no evidence of perforation. Area was successfully injected with 20 mL of a 0.1 mg/mL solution of epinephrine for drug delivery. Coagulation for hemostasis using heater probe was successful. To prevent bleeding post-intervention, two hemostatic clips were successfully placed. Clip residential subcontractor: [employer]. There was no bleeding at the end of the procedure. Impression: - Normal esophagus. - Normal esophagus. - Red blood in the gastric body. - Non-obstructing spurting duodenal ulcer with a visible vessel. There is no evidence of perforation. Injected. Treated with a heater probe. Clips were placed. Clip residential subcontractor: [employer]. - No specimens collected. Recommendation: - NPO. - Continue present medications. - Give Protonix (pantoprazole): initiate therapy with 80 mg IV bolus, then 8 mg/hr IV by continuous infusion. PPI drip can be stopped and she can be placed on Protonix 40 mg IV every 12 hours. Can advance diet as tolerated. She will likely need a repeat upper endoscopy prior to being DC from the hospital. Charges/Coding Visit Charges Inpatient E&M: 46241 Subs Hosp L3
[2024-02-21 20:52] LABS: Hemoglobin 9.5 g/dL (12.0-15.0)
[2024-02-21] MEDS: Atorvastatin Calcium 80 MG Tablet PO (20:53)
[2024-02-21 21:25] LABS: Bedside Glucose 119 mg/dL (74-106)
[2024-02-22] VITALS: BP 153/61; PULSE 57; RESP 16; TEMP 36.6; O2SAT 97
[2024-02-22 01:26] LABS: Hemoglobin 8.9 g/dL (12.0-15.0)
[2024-02-22] MEDS: Lactated Ringers 1,000 ML 125 ML IV (02:50)
[2024-02-22 03:00] VITALS: BP 153/61; PULSE 57; RESP 16; TEMP 36.6; O2SAT 97
[2024-02-22] MEDS: Nystatin Powder 15gm Bottle 1 APPLIC TOPICAL ×2 (06:23→21:30)
[2024-02-22 06:41] LABS: Bedside Glucose 109 mg/dL (74-106)
[2024-02-22 07:29] LABS: Hematocrit 26.3 % (37-47); Hemoglobin 8.8 g/dL (12.0-15.0); Mean Corp Hgb Conc 33.5 g/dL (32-36); Mean Corpuscular Hgb 26.4 pg (27.0-32.0); Mean Platelet Vol. 10.3 fl (6.2-12.0); Platelet Count 148 K/mm3 (150-450); RBC Distribution Width SD 51.1 fl (35.1-43.9); Red Blood Count 3.33 M/mm3 (4.2-5.4); White Blood Count 11.3 K/mm3 (4.4-11.0)
[2024-02-22 08:09] LABS: Anion Gap 9 (5-15); BUN 67 mg/dL (7-18); BUN/Creat Ratio 13.5 RATIO (10-20); Calcium,Total 8.3 mg/dL (8.5-10.1); Chloride 113 mmol/L (98-107); Creatinine, Serum 4.96 mg/dL (0.55-1.02); EST Glomerular Filtration Rate 9 mL/min (>60); Est Glom Filt Rate - Afr Amer 11 mL/min (>60); Estimated Creatinine Clearance 9.54 ml/min; Glucose 107 mg/dL (74-106); Phosphorus 3.6 mg/dL (2.5-4.9); Potassium 3.7 mmol/L (3.5-5.1); Sodium Level 146 mmol/L (136-145)
[2024-02-22 09:17] LABS: Pathologist Review Reviewed
[2024-02-22 09:44] VITALS: BP 165/60; PULSE 55; RESP 16; TEMP 36.9; O2SAT 100
[2024-02-22] MEDS: 0.45% Normal Saline 1,000 ML 125 ML IV ×2 (09:50→18:13)
[2024-02-22] MEDS: Cholecalciferol (Vit D3) 125 MCG CAPSULE (5,000 UNITS) PO (09:51)
[2024-02-22] MEDS: Ferrous Sulfate 325 MG Tablet PO (09:51)
[2024-02-22] MEDS: Citalopram 20 MG Tablet PO (09:52)
[2024-02-22] MEDS: Pentoxifylline 400 MG Tablet PO (09:52)
[2024-02-22] MEDS: Folic Acid 1 MG Tablet PO (09:52)
[2024-02-22] MEDS: Pantoprazole Sodium 40 MG Tablet PO ×2 (09:53→21:30)
[2024-02-22] MEDS: Sucralfate 1 GM Tablet PO ×3 (09:53→21:30)
--- NOTE | 2024-02-22 13:17 | PCM.PN.REN ---
Subjective Subjective No new complaints today Objective Data Objective Data Vital Signs: Vital Signs Temp Pulse Resp BP Pulse Ox O2 Del Method O2 Flow Rate 98.5 F 55 L 16 165/60 H 100 Room Air 2 02/22/24 09:44 02/22/24 09:44 02/22/24 09:44 02/22/24 09:44 02/22/24 09:44 02/22/24 09:44 02/20/24 18:38 Oxygen Flow Rate (L/min) 2 Oxygen Delivery Method Room Air Weight: 83.9 kg Body Mass Index (BMI) 34.0 Intake & Output: Intake and Output for Last 24 Hours 02/20/24 02/21/24 02/22/24 23:59 23:59 23:59 Intake Total 3653.50 / 3653.50 2519.92 / 2519.92 1999 Output Total 325 / 325 1250 / 1250 Balance 3328.50 / 3328.50 1269.92 / 1269.92 1999 Lab / Micro Data 02/22/24 06:30 02/22/24 06:30 Labs: Laboratory Results - last 24 hr 02/20/24 00:00: Crossmatch See Detail 02/20/24 07:00: Diff Path Review Reviewed 02/21/24 13:40: Hgb 9.1 L 02/21/24 16:37: POC Glucose 107 H 02/21/24 20:20: Hgb 9.5 L 02/21/24 20:57: POC Glucose 119 H 02/22/24 01:18: Hgb 8.9 L 02/22/24 06:22: POC Glucose 109 H 02/22/24 06:30: WBC 11.3 H, RBC 3.33 L, Hgb 8.8 L, Hct 26.3 L, MCV 79.0 L, MCH 26.4 L, MCHC 33.5, RDW Std Deviation 51.1 H, RDW Coeff of Juan Diego 18.0 H, Plt Count 148 L, MPV 10.3, Sodium 146 H, Potassium 3.7, Chloride 113 H, Carbon Dioxide 24.0, Anion Gap 9, BUN 67 H, Creatinine 4.96 H, Estim Creat Clear Calc 9.54, Est GFR (MDRD) Af Amer 11 L, Est GFR (MDRD) Non-Af 9 L, BUN/Creatinine Ratio 13.5, Glucose 107 H, Calcium 8.3 L, Phosphorus 3.6 Micro: Microbiology 02/20/24 00:51 Stool Stool Lactoferrin - Final 02/20/24 00:51 Stool Enteric Bacteriology - Final 02/20/24 00:51 Stool Clostridioides difficile (PCR) - Final 02/20/24 00:15 Stool Stool Occult Blood (ANDRES) - Final Occult Blood Positive Physical Exam Narrative Pleasant elderly woman awake and responsive Oral mucosa still dry Neck is supple S1-S2 regular Normal respiration Abdomen is obese soft nontender No significant peripheral edema Assessment & Plan Assessment/Plan (1) Acute renal failure: PLAN: Baseline cr around 1.3 to 1.5 admitted with cr of 12 or so Urine analysis with few leukocytes Renal ultrasound without any hydronephrosis Longstanding history of diarrhea. According to her this was attributed to metformin, discontinued. Later this was attributed to Trulicity, discontinued. Intensity of diarrhea has improved with stopping Trulicity. With IV fluids alone, creatinine has improved. Creatinine continues to improve. Acidosis. Likely due to GI losses. better. Hypokalemia. Improving Anemia. Due to GI bleed. s/p PRBC No further workup from nephrology standpoint. Okay to make discharge plans. (2) History of chronic kidney disease:
--- NOTE | 2024-02-22 13:47 | PN.HOSP_ITS ---
Reason for Visit Reason for Visit: Abnormal labs Subjective Subjective Patient denies any complaints this morning. She states she is feeling okay. No further bloody stools or diarrhea. States she is anxious to go home. We did review that her kidney function is improving. Dr. Campos would like to do repeat EGD and colonoscopy tomorrow if she is agreeable. She does say she would like to pursue the colonoscopy as she has been having chronic issues with d iarrhea which we feel likely got her into the situation of acute kidney injury due to dehydration. Plan will be for prep today and colonoscopy and repeat EGD tomorrow. Hemoglobin has stabilized Objective Data Objective Data Vital Signs: Vital Signs Temp Pulse Resp BP Pulse Ox O2 Del Method O2 Flow Rate 98.5 F 55 L 16 165/60 H 100 Room Air 2 02/22/24 09:44 02/22/24 09:44 02/22/24 09:44 02/22/24 09:44 02/22/24 09:44 02/22/24 09:44 02/20/24 18:38 Oxygen Flow Rate (L/min) 2 Oxygen Delivery Method Room Air Weight: 83.9 kg Body Mass Index (BMI) 34.0 Intake & Output: Intake and Output for Last 24 Hours 02/20/24 02/21/24 02/22/24 23:59 23:59 23:59 Intake Total 3653.50 / 3653.50 2519.92 / 2519.92 1999 Output Total 325 / 325 1250 / 1250 Balance 3328.50 / 3328.50 1269.92 / 1269.92 1999 Lab / Micro Data 02/22/24 06:30 02/22/24 06:30 Labs: Laboratory Results - last 24 hr 02/20/24 07:00: Diff Path Review Reviewed 02/21/24 13:40: Hgb 9.1 L 02/21/24 16:37: POC Glucose 107 H 02/21/24 20:20: Hgb 9.5 L 02/21/24 20:57: POC Glucose 119 H 02/22/24 01:18: Hgb 8.9 L 02/22/24 06:22: POC Glucose 109 H 02/22/24 06:30: WBC 11.3 H, RBC 3.33 L, Hgb 8.8 L, Hct 26.3 L, MCV 79.0 L, MCH 26.4 L, MCHC 33.5, RDW Std Deviation 51.1 H, RDW Coeff of Juan Diego 18.0 H, Plt Count 148 L, MPV 10.3, Sodium 146 H, Potassium 3.7, Chloride 113 H, Carbon Dioxide 24.0, Anion Gap 9, BUN 67 H, Creatinine 4.96 H, Estim Creat Clear Calc 9.54, Est GFR (MDRD) Af Amer 11 L, Est GFR (MDRD) Non-Af 9 L, BUN/Creatinine Ratio 13.5, Glucose 107 H, Calcium 8.3 L, Phosphorus 3.6 Micro: Microbiology 02/20/24 00:51 Stool Stool Lactoferrin - Final 02/20/24 00:51 Stool Enteric Bacteriology - Final 02/20/24 00:51 Stool Clostridioides difficile (PCR) - Final 02/20/24 00:15 Stool Stool Occult Blood (ANDRES) - Final Occult Blood Positive Physical Exam Narrative Const alert, oriented x3, no apparent distress and well nourished; Negative for average body habitus or healthy appearing Constitutional Narrative: Obese, elderly, white female, sitting up in a chair at the bedside, appears comfortable, nontoxic, a bit less pale today HEENT head/scalp atraumatic and moist oral mucous membranes HEENT Narrative: Mallampati 3, no thrush Head and Scalp: normocephalic Eyes Negative for conjunctivae normal Resp normal respiratory effort, no retractions, no use of accessory muscles and clear to auscultation bilaterally Auscultation: Negative for rales, rhonchi or wheezes Cardio regular rate, regular rhythm, S1 normal heart sound, S2 normal heart sound, no murmurs, no rub, no gallops and no clicks GI normal to inspection, nondistended, normoactive bowel sounds, soft to palpation and non-tender Extremity no clubbing, cyanosis or edema Neuro oriented x3, moves all extremities and no focal motor deficits Speech: speech normal Psych affect normal Psych Narrative: Very pleasant, interacts appropriately Assessment & Plan Assessment/Plan (1) Duodenal ulcer: (2) Upper GI bleed: (3) Acute renal failure: (4) Metabolic acidosis: (5) Diarrhea: PLAN: Plan OSVALDO on CKD stage IIIb secondary to prerenal azotemia from dehydration due to her diarrhea -Baseline serum creatinine appears to be between 1.3 and 1.5 -Creatinine on admission was 12.21 -Serum creatinine now down to down to 4.96 from 5.8 yesterday -Continue to hold nephrotoxins -Sodium and chloride are trending up so we will stop LR and transition to half- normal saline at 125 cc/h -No need for renal replacement therapy -Nephrology following-appreciate input Upper GI bleed secondary to duodenal ulcer -EGD done yesterday showed a spurting duodenal ulcer which was treated with injection and coagulation with heater probe as well as clips for hemostasis -Hemoglobin has dropped to 6.6 despite 1 unit transfused after procedure -Will transfuse 2 more units today and repeat hemoglobin following -No more signs of active bleeding however will monitor hemoglobin every 6 -Stop IV Protonix -Start Protonix 40 mg p.o. twice daily -Start Carafate -Start clear liquid diet for today and will prep for repeat EGD to reevaluate ulcers and clips as well as colonoscopy tomorrow Acute on chronic anemia -Recent baseline is unclear however she did appear to be in the 9-10 range in July 2023 -Secondary to duodenal ulcer -Received a total of 3 units packed red blood cells -Hemoglobin has stabilized at this point in the mid 8 region -Continue home p.o. iron supplementation Chronic diarrhea -C. difficile, enteric panel, and lactoferrin are all unremarkable -I am not convinced that her baseline diarrhea is related all to her GI bleed however this could have exacerbated things -Plan is for colonoscopy tomorrow Hypokalemia -Resolved HTN/HPL -Continue home Crestor -Metoprolol on hold due to some bradycardia -Blood pressures remain elevated we cannot start DWIGHT inhibitor due to renal function -Start amlodipine 10 mg daily Osteoporosis -Restart alendronate at discharge -Continue home calcium carbonate -Continue home cholecalciferol DM-2 -Home Levemir is on hold due to renal dysfunction -AM fasting blood sugar was only 107 -Continue SSI -Carb controlled diet Obesity -Recommend weight loss -BMI 33.8 -Complicates treatment, prognosis, outcomes DVT prophylaxis -SCDs -Continue to hold subcu heparin on hold due to bleeding CODE STATUS -Full code Charges/Coding Visit Charges Inpatient E&M: 78044 Subs Hosp L2
--- NOTE | 2024-02-22 13:50 | CASEMGMT ---
Discharge Planning A list of?HH providers including quality and resource use data and consistent with the patient's preferred geographic region, medical needs, and insurance network was created in [facility] Guide.? This list was provided to the RN ASIF. Kortney Roberto, Discharge Planning Asst.
[2024-02-22] MEDS: amLODIPine 10 MG Tablet PO (14:39)
[2024-02-22 14:40] VITALS: BP 144/52; PULSE 61; RESP 12; TEMP 36.6; O2SAT 97
--- NOTE | 2024-02-22 15:30 | CASEMGMT ---
RN CM updated by hospitalist that patient is interested in HHC. RN CM in to discuss HHC at discharge. A list of HHC providers including quality and resource use data and consistent with the patient?s preferred geographical region, medical needs, and insurance network were provided from the [facility] Guide. Patient to review agencies and provide preferences. CM will continue to follow this patient and plan for a safe discharge.
[2024-02-22] MEDS: Insulin Lispro 100 UNIT/ML INSULN.PEN SC ×2 (16:03→21:31)
[2024-02-22 16:25] LABS: Bedside Glucose 197 mg/dL (74-106)
--- NOTE | 2024-02-22 17:40 | PN.GI_ITS ---
Subjective Subjective Patient has been feeling a lot better. She wants to undergo colonoscopy because the diarrhea she has been experiencing prior to coming into the hospital. Her stools been negative for infection thus far. Objective Data Objective Data Vital Signs: Vital Signs Temp Pulse Resp BP Pulse Ox O2 Del Method O2 Flow Rate 97.8 F 61 12 144/52 H 97 Room Air 2 02/22/24 14:40 02/22/24 14:40 02/22/24 14:40 02/22/24 14:40 02/22/24 14:40 02/22/24 14:40 02/20/24 18:38 Oxygen Flow Rate (L/min) 2 Oxygen Delivery Method Room Air Weight: 184 lb 15.485 oz Body Mass Index (BMI) 34.0 Intake & Output: Intake and Output for Last 24 Hours 02/20/24 02/21/24 02/22/24 23:59 23:59 23:59 Intake Total 3653.50 / 3653.50 2519.92 / 2519.92 1999 Output Total 325 / 325 1250 / 1250 Balance 3328.50 / 3328.50 1269.92 / 1269.92 1999 Lab / Micro Data 02/22/24 06:30 02/22/24 06:30 Labs: Laboratory Results - last 24 hr 02/20/24 07:00: Diff Path Review Reviewed 02/21/24 20:20: Hgb 9.5 L 02/21/24 20:57: POC Glucose 119 H 02/22/24 01:18: Hgb 8.9 L 02/22/24 06:22: POC Glucose 109 H 02/22/24 06:30: WBC 11.3 H, RBC 3.33 L, Hgb 8.8 L, Hct 26.3 L, MCV 79.0 L, MCH 26.4 L, MCHC 33.5, RDW Std Deviation 51.1 H, RDW Coeff of Juan Diego 18.0 H, Plt Count 148 L, MPV 10.3, Sodium 146 H, Potassium 3.7, Chloride 113 H, Carbon Dioxide 24.0, Anion Gap 9, BUN 67 H, Creatinine 4.96 H, Estim Creat Clear Calc 9.54, Est GFR (MDRD) Af Amer 11 L, Est GFR (MDRD) Non-Af 9 L, BUN/Creatinine Ratio 13.5, Glucose 107 H, Calcium 8.3 L, Phosphorus 3.6 02/22/24 16:02: POC Glucose 197 H Micro: Microbiology 02/20/24 00:51 Stool Stool Lactoferrin - Final 02/20/24 00:51 Stool Enteric Bacteriology - Final 02/20/24 00:51 Stool Clostridioides difficile (PCR) - Final 02/20/24 00:15 Stool Stool Occult Blood (ANDRES) - Final Occult Blood Positive Physical Exam Narrative Const alert, oriented x3, no apparent distress and well nourished; Negative for average body habitus or healthy appearing HEENT head/scalp atraumatic and moist oral mucous membranes HEENT Narrative: Mallampati 3, no thrush Head and Scalp: normocephalic Eyes PERRL and EOMs intact bilaterally; Negative for conjunctivae normal Eyes Narrative: No scleral icterus, conjunctiva are pale bilaterally Neck no lymphadenopathy and supple Neck Narrative: Trachea midline, no thyroid enlargement Resp normal respiratory effort, no retractions, no use of accessory muscles and clear to auscultation bilaterally Resp Narrative: No crackles despite volume resuscitation and blood products being given Auscultation: Negative for rales, rhonchi or wheezes Cardio regular rate, regular rhythm, S1 normal heart sound, S2 normal heart sound, no murmurs, no rub, no gallops and no clicks GI normal to inspection, nondistended, normoactive bowel sounds, soft to palpation and non-tender Extremity no clubbing, cyanosis or edema Extremity Narrative: Skin on legs is very dry Skin no wounds, skin turgor normal and no mottling Skin Narrative: Significantly pale today Neuro oriented x3, moves all extremities and no focal motor deficits Speech: speech normal Psych affect normal Psych Narrative: Very pleasant, interacts appropriately Assessment & Plan Assessment/Plan (1) Acute renal failure: PLAN: Plan Patient is a 78-year-old lady who was sent to the emergency department by her primary care physician with worsening kidney function. She was also determined to have decreased hemoglobin and melanotic stool. I suspect that her increased BUN/creatinine ratio was secondary to GI bleed and acute kidney injury. Acute renal failure ? Superimposed on chronic kidney disease stage IIIb Patient admitted to regular nursing floor started on IV hydration potential nephrotoxic medications d iscontinued ordered renal ultrasound with consultation placed to nephrology. Anemia - Secondary to chronic disorder unlikely from chronic renal failure. However her BUN creatinine ratio is very sensitive for upper GI bleed also. She should undergo an upper endoscopy evaluate upper GI tract. If this is negative then she will need to undergo colonoscopy because she has been having some diarrhea. 02/21/24-findings from a upper endoscopy: Findings: The examined esophagus was normal. The examined esophagus was normal. Red blood was found in the gastric body. One non-obstructing spurting cratered duodenal ulcer with a visible vessel was found in the first portion of the duodenum. The lesion was 10 mm in largest dimension. There is no evidence of perforation. Area was successfully injected with 20 mL of a 0.1 mg/mL solution of epinephrine for drug delivery. Coagulation for hemostasis using heater probe was successful. To prevent bleeding post-intervention, two hemostatic clips were successfully placed. 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 There was no bleeding at the end of the procedure. Impression: - Normal esophagus. - Normal esophagus. - Red blood in the gastric body. - Non-obstructing spurting duodenal ulcer with a visible vessel. There is no evidence of perforation. Injected. Treated with a heater probe. Clips were placed. 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 - No specimens collected. Recommendation: - NPO. - Continue present medications. - Give Protonix (pantoprazole): initiate therapy with 80 mg IV bolus, then 8 mg/hr IV by continuous infusion. PPI drip can be stopped and she can be placed on Protonix 40 mg IV every 12 hours. Can advance diet as tolerated. She will likely need a repeat upper endoscopy prior to being DC from the hospital. 02/22/24-the plan is for EGD and colonoscopy tomorrow. We will look at her previous ulcer that was seen in the duodenum to make sure it is healing appropriately. We will also perform colonoscopy and evaluate her lower GI tract as well as the terminal ileum. Charges/Coding Visit Charges Inpatient E&M: 54939 Subs Hosp L3
[2024-02-22] MEDS: Bisacodyl 5 MG Tablet 20 MG PO (17:48)
[2024-02-22] MEDS: Polyethylene Glycol 3350 BOWEL PREP 1 BOTTLE PO (19:54)
[2024-02-22 21:00] VITALS: BP 148/66; PULSE 67; RESP 18; TEMP 36.4; O2SAT 99
[2024-02-22] MEDS: Calcium Carb/Vitamin D 1 TABLET Tablet PO (21:30)
[2024-02-22] MEDS: Atorvastatin Calcium 80 MG Tablet PO (21:31)
[2024-02-22 22:01] VITALS: O2SAT 98
[2024-02-22 23:15] LABS: Bedside Glucose 211 mg/dL (74-106)
[2024-02-23] VITALS (9 sets, daily range): BP systolic 119–164; BP diastolic 55–98; PULSE 63–79; RESP 14–18; TEMP 36.3–36.9; O2SAT 96–98; BMI 33.8; BMI 37.1
[2024-02-23] MEDS: 0.45% Normal Saline 1,000 ML 125 ML IV ×2 (02:12→13:31)
[2024-02-23 04:49] LABS: Hematocrit 27.4 % (37-47); Hemoglobin 9.1 g/dL (12.0-15.0); Mean Corp Hgb Conc 33.2 g/dL (32-36); Mean Corpuscular Hgb 26.5 pg (27.0-32.0); Mean Corpuscular Volume 79.7 fL (81-99); Mean Platelet Vol. 9.8 fl (6.2-12.0); Platelet Count 154 K/mm3 (150-450); RBC Distribution Width CV 17.5 % (11.6-14.6); RBC Distribution Width SD 50.8 fl (35.1-43.9); Red Blood Count 3.44 M/mm3 (4.2-5.4); White Blood Count 11.3 K/mm3 (4.4-11.0)
[2024-02-23 05:34] LABS: Anion Gap 8 (5-15); BUN 52 mg/dL (7-18); BUN/Creat Ratio 11.9 RATIO (10-20); Calcium,Total 8.3 mg/dL (8.5-10.1); Chloride 109 mmol/L (98-107); Creatinine, Serum 4.37 mg/dL (0.55-1.02); EST Glomerular Filtration Rate 10 mL/min (>60); Est Glom Filt Rate - Afr Amer 13 mL/min (>60); Estimated Creatinine Clearance 10.83 ml/min; Glucose 131 mg/dL (74-106); Sodium Level 139 mmol/L (136-145)
--- NOTE | 2024-02-23 05:55 | EKG12_ITS ---
Test Reason : AM EKG Blood Pressure : / mmHG Vent. Rate : 063 BPM Atrial Rate : 063 BPM P-R Int : 176 ms QRS Dur : 082 ms QT Int : 430 ms P-R-T Axes : 015 -19 039 degrees QTc Int : 440 ms Normal sinus rhythm Cannot rule out Anterior infarct , age undetermined Abnormal ECG When compared with ECG of 15-FEB-2024 19:10, CA interval has decreased QRS duration has decreased Nonspecific T wave abnormality, improved in Inferior leads Nonspecific T wave abnormality, improved in Lateral leads QT has shortened Confirmed by BETSY PAREDES, CLIFF ([id number]), mapping editor ANDREW LINDA ([id number]) on 02/26/2024 9:56:55 AM Referred By: Confirmed By:CLIFF MEYER MD
[2024-02-23 09:26] LABS: Bedside Glucose 127 mg/dL (74-106)
[2024-02-23] MEDS: amLODIPine 10 MG Tablet PO (10:14)
[2024-02-23] MEDS: Cholecalciferol (Vit D3) 125 MCG CAPSULE (5,000 UNITS) PO (10:14)
[2024-02-23] MEDS: Citalopram 20 MG Tablet PO (10:14)
[2024-02-23] MEDS: Pantoprazole Sodium 40 MG Tablet PO (10:14)
[2024-02-23] MEDS: Folic Acid 1 MG Tablet PO (10:14)
[2024-02-23] MEDS: Calcium Carb/Vitamin D 1 TABLET Tablet PO (10:14)
[2024-02-23] MEDS: Lactated Ringers 1,000 ML 15 ML IV (11:01)
--- NOTE | 2024-02-23 11:15 | CASEMGMT ---
Addendum entered by Isha Tucker 02/23/24 14:46: DEBRA GOLD received call from [facility] and they are able to accept patient with start of care for Monday. DEBRA GOLD updated patient. Patient denied further needs. Patient had no further questions or concerns. Original Note: DEBRA GOLD in to discuss [facility] with patient. Patient states she prefers [facility]. DEBRA GOLD called and made referral, awaiting acceptance. Patient had no further needs or concerns at this time.
--- NOTE | 2024-02-23 11:30 | EGD_PTH ---
PATIENT: AZUL NAVARRETE LOC: [facility] U#:[id number] AGE/SX: 78/F ROOM: [facility] RE02/15/[address]: Dr. Adrienne Prather DO : 1945 BED: 1 DIS: 02/23/2024 SPEC #: [id number] RECD: 02/23/24 14:06 STATUS: MARYA REMary Ann #: [id number] JENSEN: 02/23/24 11:[address]: Dewey Campos DEPT: SURGICAL PATHOLOGY RECD BY: Alta Poep ENTERED: 02/23/24 14:24 SP TYPE: EGD BIOPSY OT DR: MD Dr. Elena Perkins DO Dr. Kathryn Lee, DO Dr. Nicholas F Kotsonis, MD Dr. Natthavat Tanphaichitr, MD Dr. Rahsaan Friend, DO Tissues: A - Esophagus, NOS B - Cecum, NOS C - Ileum, NOS D - COLON BIOPSY Procedures: Special Stain Group II Surgery Specimen Level IV Alcian Blue/PAS (control) Comments: @ Ordering doctor for SUIV edited from to @ isabel MCFADDEN at 02/23/24 1447 @ Submitting doctor edited from to @ isabel MCFADDEN at 02/23/24 1448 HEADER OPERATION: Colonoscopy with biopsy PRE-OP DIAGNOSIS: GI bleed TISSUE SUBMITTED: A- Distal esophagus biopsy, B- Cecum polyp biopsy, C- Terminal ileum biopsy, D- Random colon biopsy MICROSCOPIC DIAGNOSIS A. Distal esophagus, biopsy: Fragments of gastric mucosa with chronic inflammation. No evidence of goblet cell metaplasia. See comment. B. Cecum polyp, biopsy: Polypoid fragment of colonic mucosa with inflammatory change. C. Terminal ileum, biopsy: No pathologic change. D. Colon, random biopsy: Consistent with microscopic colitis. See comment. ROSETTA/ 02/27/2024 COMMENT A. Alcian blue/PAS stain with matched control supports the above diagnosis. D. The changes are scattered among several fragments. Clinical correlation is suggested. MICROSCOPIC DESCRIPTION Slides are reviewed. GROSS DESCRIPTION A. Received in fixative is one container labeled with the patient's name and designated Distal esophagus biopsy. The specimen consists of one irregular fragment of light bass soft tissue that measures 0.3 x 0.2 x 0.1 cm. The specimen is totally submitted in one cassette. B. Received in fixative is one container labeled with the patient's name and designated Cecal polyp biopsy. The specimen consists of one irregular fragment of light bass soft tissue that measures 0.2 x 0.2 x 0.1 cm. The specimen is totally submitted in one cassette. C. Received in fixative is one container labeled with the patient's name and designated Terminal ileum biopsy. The specimen consists of multiple irregular fragments of light bass soft tissue that in aggregate measure 0.6 x 0.2 x 0.1 cm. The specimen is totally submitted in one cassette. D. Received in fixative is one container labeled with the patient's name and designated Random colon biopsy. The specimen consists of multiple irregular fragments of light bass soft tissue that in aggregate measure 1.8 x 0.5 x 0.1 cm. The specimen is totally submitted in one cassette. BRITT/ 02/23/24 TC:3 CPT:55609n6,69311
--- NOTE | 2024-02-23 12:09 | OP.EGD_ITS ---
Patient Name: Jeanette Cordova Procedure Date: 02/23/2024 11:20 AM Date of : 1945 Age: 78 Procedure: Upper GI endoscopy Indications: Epigastric abdominal pain, Iron deficiency anemia, Melena Providers: Dewey Campos DO Medicines: Monitored Anesthesia Care Patient Profile: This is a 78 year old female. Refer to note in patient chart for documentation of history and physical. Patient has symptoms of acute epigastric abdominal pain and acute heartburn. Complications: No immediate complications. Procedure: Pre-Anesthesia Assessment: - Prior to the procedure, a History and Physical was performed, and patient medications and allergies were reviewed. The patient is competent. The risks and benefits of the procedure and the sedation options and risks were discussed with the patient. All questions were answered and informed consent was obtained. Patient identification and proposed procedure were verified by the physician in the pre-procedure area. Mental Status Examination: alert and oriented. Airway Examination: normal oropharyngeal airway and neck mobility. Respiratory Examination: clear to auscultation. CV Examination: normal. Prophylactic Antibiotics: The patient does not require prophylactic antibiotics. Prior Anticoagulants: The patient has taken no anticoagulant or antiplatelet agents. ASA Grade Assessment: II - A patient with mild systemic disease. After reviewing the risks and benefits, the patient was deemed in satisfactory condition to undergo the procedure. The anesthesia plan was to use monitored anesthesia care (MAC). Immediately prior to administration of medications, the patient was re-assessed for adequacy to receive sedatives. The heart rate, respiratory rate, oxygen saturations, blood pressure, adequacy of pulmonary ventilation, and response to care were monitored throughout the procedure. The physical status of the patient was re-assessed after the procedure. After obtaining informed consent, the endoscope was passed under direct vision. Throughout the procedure, the patient's blood pressure, pulse, and oxygen saturations were monitored continuously. The Colonoscope was introduced through the mouth, and advanced to the second part of duodenum. The upper GI endoscopy was accomplished without difficulty. The patient tolerated the procedure well. Scope In: 11:44:37 AM Scope Out: 11:49:01 AM Total Procedure Duration Time 0 hours 4 minutes 24 seconds Findings: The Z-line was irregular and was found 40 cm from the incisors. Biopsies were taken with a cold forceps for histology. Verification of patient identification for the specimen was done. Estimated blood loss was minimal. A small hiatal hernia was present. One non-bleeding cratered duodenal ulcer was found in the first portion of the duodenum. The lesion was 6 mm in largest dimension. Impression: - Z-line irregular, 40 cm from the incisors. Biopsied. - Small hiatal hernia. - Non-bleeding duodenal ulcer. Recommendation: - [facility]. - Resume regular diet. - Use Protonix (pantoprazole) 40 mg PO BID. - Use sucralfate tablets 1 gram PO QID. - Continue present medications. Procedure Code(s): --- Professional --- 33481, Esophagogastroduodenoscopy, flexible, transoral; with biopsy, single or multiple CPT copyright 2021 [employer]. All rights reserved. The codes documented in this report are preliminary and upon german instructor review may be revised to meet current compliance requirements. Dewey Campos DO 02/23/2024 12:08:55 PM This report has been signed electronically. Number of Addenda: 0 Note Initiated On: 02/23/2024 11:20 AM
--- NOTE | 2024-02-23 12:09 | OP.CCLET_ITS ---
02/23/2024 Elena Mims [address] [place] [address] Re : Upper GI endoscopy procedure for Jeanette Cordova Dear Dr. Mims This procedure was performed on Friday, February 23, 2024. My impressions and recommendations are as follows: Impressions : - Z-line irregular, 40 cm from the incisors. Biopsied. - Small hiatal hernia. - Non-bleeding duodenal ulcer. Recommendations : - [facility]. - Resume regular diet. - Use Protonix (pantoprazole) 40 mg PO BID. - Use sucralfate tablets 1 gram PO QID. - Continue present medications. My findings are described in the full procedure note, which is enclosed. If I can be of further assistance, please feel free to contact me at . Sincerely, Dewey Campos, 02/23/2024 12:08:55 PM This report has been signed electronically.
--- NOTE | 2024-02-23 12:13 | OP.COLON_ITS ---
Patient Name: Jeanette Cordova Procedure Date: 02/23/2024 11:49 AM Date of : 1945 Age: 78 Procedure: Colonoscopy Indications: Clinically significant diarrhea of unexplained origin Providers: Dewey Campos DO Medicines: Monitored Anesthesia Care Patient Profile: This is a 78 year old female. Refer to note in patient chart for documentation of history and physical. Patient has symptoms of acute epigastric abdominal pain and acute heartburn. Last Colonoscopy: date unknown. Unable to locate last colonoscopy report. Complications: No immediate complications. Procedure: Pre-Anesthesia Assessment: - Prior to the procedure, a History and Physical was performed, and patient medications and allergies were reviewed. The patient is competent. The risks and benefits of the procedure and the sedation options and risks were discussed with the patient. All questions were answered and informed consent was obtained. Patient identification and proposed procedure were verified by the physician in the pre-procedure area. Mental Status Examination: alert and oriented. Airway Examination: normal oropharyngeal airway and neck mobility. Respiratory Examination: clear to auscultation. CV Examination: normal. Prophylactic Antibiotics: The patient does not require prophylactic antibiotics. Prior Anticoagulants: The patient has taken no anticoagulant or antiplatelet agents. ASA Grade Assessment: II - A patient with mild systemic disease. After reviewing the risks and benefits, the patient was deemed in satisfactory condition to undergo the procedure. The anesthesia plan was to use monitored anesthesia care (MAC). Immediately prior to administration of medications, the patient was re-assessed for adequacy to receive sedatives. The heart rate, respiratory rate, oxygen saturations, blood pressure, adequacy of pulmonary ventilation, and response to care were monitored throughout the procedure. The physical status of the patient was re-assessed after the procedure. After I obtained informed consent, the scope was passed under direct vision. Throughout the procedure, the patient's blood pressure, pulse, and oxygen saturations were monitored continuously. The Colonoscope was introduced through the anus and advanced to the terminal ileum. The colonoscopy was performed without difficulty. The patient tolerated the procedure well. The quality of the bowel preparation was good. The terminal ileum, ileocecal valve, appendiceal orifice, and rectum were photographed. Scope In: 11:51:20 AM Scope Withdrawal Time 0 hours 7 minutes 50 seconds Scope Out: 12:02:54 PM Total Procedure Duration Time 0 hours 11 minutes 34 seconds Findings: The perianal and digital rectal examinations were normal. A 5 mm polyp was found in the cecum. The polyp was sessile. The polyp was removed with a cold snare. Resection and retrieval were complete. Verification of patient identification for the specimen was done. Estimated blood loss was minimal. An area of mildly congested mucosa was found in the entire colon. Biopsies for histology were taken with a cold forceps from the entire colon for evaluation of microscopic colitis. Verification of patient identification for the specimen was done. Estimated blood loss was minimal. A few small-mouthed diverticula were found in the recto-sigmoid colon and sigmoid colon. A patchy area of the terminal ileum was congested. Biopsies were taken with a cold forceps for histology. Verification of patient identification for the specimen was done. Estimated blood loss was minimal. Impression: - One 5 mm polyp in the cecum, removed with a cold snare. Resected and retrieved. - Congested mucosa in the entire examined colon. Biopsied. - Diverticulosis in the recto-sigmoid colon and in the sigmoid colon. - Congested mucosa in the terminal ileum. Biopsied. Recommendation: - Discharge patient to home. - Resume previous diet. - Continue present medications. - Await pathology results. - Repeat colonoscopy in 3 years for surveillance. Procedure Code(s): --- Professional --- 00043, Colonoscopy, flexible; with removal of tumor(s), polyp(s), or other lesion(s) by snare technique 73989, 59, Colonoscopy, flexible; with biopsy, single or multiple CPT copyright 2021 [employer]. All rights reserved. The codes documented in this report are preliminary and upon him coder review may be revised to meet current compliance requirements. Dewey Campos DO 02/23/2024 12:13:06 PM This report has been signed electronically. Number of Addenda: 0 Note Initiated On: 02/23/2024 11:49 AM
--- NOTE | 2024-02-23 12:14 | OP.CCLET_ITS ---
02/23/2024 Elena Mims [address] [place] [address] Re : Colonoscopy procedure for Jeanette Cordova Dear Dr. Mims This procedure was performed on Friday, February 23, 2024. My impressions and recommendations are as follows: Impressions : - One 5 mm polyp in the cecum, removed with a cold snare. Resected and retrieved. - Congested mucosa in the entire examined colon. Biopsied. - Diverticulosis in the recto-sigmoid colon and in the sigmoid colon. - Congested mucosa in the terminal ileum. Biopsied. Recommendations : - Discharge patient to home. - Resume previous diet. - Continue present medications. - Await pathology results. - Repeat colonoscopy in 3 years for surveillance. My findings are described in the full procedure note, which is enclosed. If I can be of further assistance, please feel free to contact me at . Sincerely, Dewey Campos, 02/23/2024 12:13:06 PM This report has been signed electronically.
[2024-02-23] MEDS: Potassium Chloride Oral Tablet 20 MEQ 60 MEQ PO (13:18)
[2024-02-23] MEDS: Sucralfate 1 GM Tablet PO (13:20)
[2024-02-23] MEDS: Nystatin Powder 15gm Bottle 1 APPLIC TOPICAL (13:25)
[2024-02-23 13:31] LABS: Bedside Glucose 141 mg/dL (74-106)
--- NOTE | 2024-02-23 13:39 | PN.RENAL_ITS ---
Subjective Subjective No new complaints Objective Data Objective Data Vital Signs: Vital Signs Temp Pulse Resp BP Pulse Ox O2 Del Method O2 Flow Rate 97.9 F 79 17 133/74 H 98 Room Air 2 02/23/24 13:02 02/23/24 13:02 02/23/24 13:02 02/23/24 13:02 02/23/24 13:02 02/23/24 13:02 02/20/24 18:38 Oxygen Flow Rate (L/min) 2 Oxygen Delivery Method Room Air Weight: 83.9 kg Body Mass Index (BMI) 33.8 Intake & Output: Intake and Output for Last 24 Hours 02/21/24 02/22/24 02/23/24 23:59 23:59 23:59 Intake Total 2519.92 / 2519.92 3240 / 3240 Output Total 1250 / 1250 Balance 1269.92 / 1269.92 3240 / 3240 Lab / Micro Data 02/23/24 04:34 02/23/24 04:34 Labs: Laboratory Results - last 24 hr 02/22/24 16:02: POC Glucose 197 H 02/22/24 21:29: POC Glucose 211 H 02/23/24 04:34: WBC 11.3 H, RBC 3.44 L, Hgb 9.1 L, Hct 27.4 L, MCV 79.7 L, MCH 26.5 L, MCHC 33.2, RDW Std Deviation 50.8 H, RDW Coeff of Juan Diego 17.5 H, Plt Count 154, MPV 9.8, Sodium 139, Potassium 3.0 L, Chloride 109 H, Carbon Dioxide 22.0, Anion Gap 8, BUN 52 H, Creatinine 4.37 H, Estim Creat Clear Calc 10.83, Est GFR (MDRD) Af Amer 13 L, Est GFR (MDRD) Non-Af 10 L, BUN/Creatinine Ratio 11.9, Glucose 131 H, Calcium 8.3 L 02/23/24 06:06: POC Glucose 127 H 02/23/24 08:17: Blood Type B POSITIVE, Antibody Screen NEGATIVE 02/23/24 13:10: POC Glucose 141 H Micro: Microbiology 02/20/24 00:51 Stool Stool Lactoferrin - Final 02/20/24 00:51 Stool Enteric Bacteriology - Final 02/20/24 00:51 Stool Clostridioides difficile (PCR) - Final 02/20/24 00:15 Stool Stool Occult Blood (ANDRES) - Final Occult Blood Positive Physical Exam Narrative Pleasant elderly woman awake and responsive Oral mucosa still dry Neck is supple S1-S2 regular Normal respiration Abdomen is obese soft nontender No significant peripheral edema Assessment & Plan Assessment/Plan (1) Acute renal failure: PLAN: Baseline cr around 1.3 to 1.5 admitted with cr of 12 or so Urine analysis with few leukocytes Renal ultrasound without any hydronephrosis Longstanding history of diarrhea. According to her this was attributed to metformin, discontinued. Later this was attributed to Trulicity, discontinued. Intensity of diarrhea has improved with stopping Trulicity. With IV fluids alone, creatinine has improved. Creatinine continues to improve. Acidosis. Likely due to GI losses. better. Hypokalemia. Improving Anemia. Due to GI bleed. s/p PRBC Creatinine continues to improve. Okay to discharge home from nephrology [facility]. Discussed with hospitalist. We will arrange follow-up in 1 to 2 weeks. Add oral potassium chloride 20 mEq at the time of discharge. (2) History of chronic kidney disease:
--- NOTE | 2024-02-23 14:16 | DS.PCM_ITS ---
Providers Date of Admission: 02/15/24 Date of Discharge: 02/23/24 Primary Care Physician: Dr. Elena Mims, Consultations 02/15/24 22:25 Consult: Nephrology Routine Consulting Provider: Chelsie Robertson Reason for Consult: Acute renal failure EMERGENT Consult: No Notified: No Date Notified: 02/15/24 Time Notified: 21:07 02/16/24 08:46 Consult: Nephrology Routine Consulting Provider: Shari Prieto Reason for Consult: OSVALDO EMERGENT Consult: No Notified: Yes Date Notified: 02/16/24 Time Notified: 08:46 Method of Notification: Text 02/20/24 01:23 Consult: Gastroenterology Routine Consulting Provider: Dewey Campos Reason for Consult: active bloody stools and hbg drop EMERGENT Consult: No Notified: Yes Date Notified: 02/20/24 Time Notified: 07:30 Method of Notification: Text Reason For Visit: ACUTE RENAL FAILURE AND HYPOKALEMIA Diagnosis Discharge Diagnosis (1) Acute renal failure: Status: Acute Code(s): N17.9 - Acute kidney failure, unspecified (2) History of chronic kidney disease: Status: Chronic Code(s): Z87.448 - Personal history of other diseases of urinary system Medications at Discharge Home Medications folic acid 1 mg tablet 1 mg PO DAILY@0800 SUPPLEMENT 01/21/17 metoprolol succinate 50 mg tablet,extended release 24 hr (Toprol XL) 100 mg PO DAILY HEART 01/21/17 rosuvastatin 40 mg tablet (Crestor) 40 mg PO DAILY CHOLESTEROL 01/21/17 alendronate 70 mg tablet 70 mg PO FAUSTIN BONES 03/05/19 calcium carbonate 600 mg-vitamin D3 20 mcg (800 unit) tablet (Caltrate with Vitamin D3) 1 tab PO BID SUPPLEMENT 03/05/19 cholecalciferol (vitamin D3) 125 mcg (5,000 unit) capsule 5,000 unit PO DAILY SUPPLEMENT 03/05/19 ferrous sulfate 325 mg (65 mg iron) tablet 325 mg PO DAILY supplement 03/20/21 citalopram 20 mg tablet 20 mg PO DAILY mental health 01/22/22 furosemide 80 mg tablet 80 mg PO DAILY diuretic 01/22/22 nystatin 100,000 unit/gram topical powder (Nyamyc) 1 applic topical BID #60 g mayte 01/25/22 acetaminophen 325 mg tablet (Tylenol) 650 mg PO Q6H PRN Mild Pain (1-3)/Temp > 100.7 F 02/15/24 insulin detemir U-100 100 unit/mL (3 mL) subcutaneous pen (Levemir FlexPen) 10 unit subcut QHS 02/15/24 loperamide 2 mg tablet 2 mg PO Q4H PRN loose stool 02/15/24 pentoxifylline 400 mg tablet,extended release 400 mg PO DAILY 02/15/24 vitamin E 268 mg (400 unit) capsule 268 mg PO DAILY 02/15/24 pantoprazole 40 mg tablet,delayed release 40 mg PO BID #60 tabs 02/23/24 potassium chloride 20 mEq tablet,extended release 20 meq PO DAILY #30 tabs 02/23/24 sitagliptin phosphate 50 mg tablet (Januvia) 50 mg PO DAILY #1 TAB 02/23/24 sucralfate 1 gram tablet 1 g PO TID #135 tabs 02/23/24 Hospital Course Operations None Procedures Blood transfusion, Colonoscopy, EGD and EKG Summary of Care Provided Minutes Spent on Discharge: 45 Hospital Course: Patient is a 78-year-old white female who presented to emergency department at the request of her primary care physician due to abnormal labs as an outpatient. She was admitted on 02/15/2024 for the above. She indicated at that time she had not been feeling well for about 2 weeks prior to presentation having increased fatigue so a basic metabolic profile was performed and demonstrated new renal failure with a serum creatinine of greater than 12 and a BUN of 119. Patient had been taking Trulicity, metformin, and Lasix at home but she indicated on presentation that she has stopped her Trulicity several months prior as well as her metformin a few weeks prior to presentation and she not been compliant with her Lasix. She was making urine at the time of presentation in the emergency department started her on IV fluids. CT of the abdomen pelvis was done on presentation and did not show any obstructing stone or hydronephrosis. Her vital signs on presentation were unremarkable and oxygen saturations were 100% on room air. Her CBC was unremarkable other than chronic stable anemia having a hemoglobin of 9.6. Her chemistry panel showed hyponatremia with a sodium 134, hypokalemia with potassium of 2.6, serum bicarb of 13 with a normal anion gap and a BUN of 119 and a serum creatinine of 12.2. Serum glucose was 224. With her anemia, iron studies were obtained and are not consistent with iron deficiency. Ferritin was in normal range. B12 was unremarkable. Her baseline serum creatinine appears to run between 1.7 and 2. Her UA was benign. Urine sodium was elevated however she is on chronic diuretics. She did reports she had diarrhea ongoing for several months she was admitted to the telemetry floor due to hyperkalemia and started on IV fluids, nephrotoxic medications were held and nephrology was consulted. Nephrology felt that this was likely volume depletion mediated and continue to IV fluids. There were no immediate needs for renal replacement therapy. With her ongoing acidosis due to renal dysfunction she was started on a bicarb drip. Her renal function did slowly improve throughout her hospital course and on the day of discharge she had finally dropped to 4.37. Nephrology felt at this point she was safe to discharge. Her acidosis had resolved and she had been off bicarb for 48 hours. During her hospital course, her hemoglobin is dropped slowly trended down. Initially it was felt that this may be dilutional due to the fact that she was on a fairly aggressive fluid resuscitation regimen however it continued to drop. Iron studies done were done and more consistent with anemia of chronic disease however Hemoccult was positive and then the following morning her hemoglobin dropped to a cedric of 6.5. She was ultimately transfused 3 units of packed red blood cells and GI was consulted. Her prophylactic heparin was discontinued and she was placed on IV Protonix 40 twice daily. She was taken for EGD on 02/20/2024 at which time she was found to have a normal esophagus, red blood in the gastric body with a nonobstructing spurting duodenal ulcer and a visible vessel with no evidence of perforation. She was treated with heater probe, epinephrine with injection, and clips were placed. She remained n.p.o. for 24 hours following this and continued IV Protonix. She was slowly advanced to clear liquids and then transitioned off IV Protonix to 40 mg Protonix p.o. twice daily which she will need to continue for the next 8 weeks and then may transition to 40 mg daily. Carafate was also started and she is to continue this for 6 weeks. At discharge she was written prescriptions for both the Protonix and Carafate. She was written enough Carafate to complete the course and enough Protonix to complete the twice daily dosing but then will need new prescriptions when she transitions to daily dosing. Repeat EGD was performed on 02/23/2024 and showed stability with no signs of bleeding. A colonoscopy was also done at this time due to her persistent diarrhea which we felt contributed to her admission. This showed one 5 mm polyp in the cecum which was removed with a cold snare, congested mucosa in the entire colon which was biopsied as well as diverticulosis in the rectosigmoid colon and sigmoid colon. There was also congested mucosa in the terminal ileum which was biopsied. She had multiple electrolyte abnormalities while she was hospitalized which were repleted. Her potassium was persistently low even after correction of her magnesium. Nephrology asked that I discharged her on potassium supplementation 20 mill equivalents daily. Given her elevated renal function compared to baseline I did review her medications and renally dose her Januvia from 50 mg to 25 mg daily for now and as her renal function improves and her creatinine clearance increases she can slowly go back up to her 50 mg daily. I held her Levemir, Lasix, and alendronate for now and once her renal function recovers these may be reinstituted. A follow-up appointment with gastroenterology was made for April [address]24. Dr. Robertson will call her and schedule an outpatient follow- up with outpatient lab upcoming in the next week or so. I did instruct her to call his office if she does not hear from him in the next 5 to 7 days. I have also asked her to follow-up with her primary care physician, Dr. Mims, in the next week. She was seen by physical and Occupational Therapy during her hospital course and she did fairly well. They did recommend home health at the time of discharge and she was able to get this and has been scheduled to start early next week. She was discharged home in stable condition on 02/23/2024. Discharge diagnoses: OSVALDO CKD stage IIIb Diarrhea Dehydration Upper GI bleed secondary to duodenal ulcer Acute on chronic anemia Hypokalemia Hypophosphatemia Hypomagnesemia Chronic diarrhea Hypertension Hyperlipidemia Osteoporosis DM-2 Obesity Physical Exam Narrative Patient states she is feeling well. Anxious to go home. Agreeable to home health and this has been set up. No complaints at this time. Const alert, oriented x3, no apparent distress, no limitations and well nourished; Negative for average body habitus or healthy appearing Constitutional Narrative: Obese, elderly, white female, sitting up in bed, watching television, appears comfortable, nontoxic, appears well General Appearance: cooperative, comfortable, well kempt and well developed Orientation / Consciousness: awake, oriented to person, oriented to place and oriented to time Exam Limitations: no limitations Nutritional Appearance: obese HEENT normocephalic, head/scalp atraumatic, hearing grossly normal bilaterally and moist oral mucous membranes HEENT Narrative: Mallampati 3, no thrush Eyes PERRL and EOMs intact bilaterally; Negative for conjunctivae normal Eyes Narrative: No scleral icterus, conjunctiva are pale bilaterally Neck no lymphadenopathy and supple Neck Narrative: Trachea midline, no thyroid enlargement Resp normal respiratory effort, no retractions, no use of accessory muscles and clear to auscultation bilaterally Auscultation: Negative for rales, rhonchi or wheezes Cardio regular rate, regular rhythm, S1 normal heart sound, S2 normal heart sound, no murmurs, no rub, no gallops and no clicks GI normal to inspection, nondistended, normoactive bowel sounds, soft to palpation and non-tender Extremity no clubbing, cyanosis or edema Extremity Narrative: Skin on legs is very dry Skin no rashes or lesions noted, no wounds, skin turgor normal, no jaundice and no mottling Skin Narrative: Mildly pale Neuro oriented x3, CN's II-XII intact bilaterally, moves all extremities and no focal motor deficits Neuro Narrative: Mild generalized weakness noted proximal greater than distal Speech: speech normal Psych affect normal Psych Narrative: Very pleasant, interacts appropriately Weight / BMI Weight Weight: 83.9 kg Body Mass Index (BMI) 33.8 ABG / Lab / Microbiology Data 02/23/24 04:34 02/23/24 04:34 Laboratory: Laboratory Results - last 24 hr 02/22/24 16:02: POC Glucose 197 H 02/22/24 21:29: POC Glucose 211 H 02/23/24 04:34: WBC 11.3 H, RBC 3.44 L, Hgb 9.1 L, Hct 27.4 L, MCV 79.7 L, MCH 26.5 L, MCHC 33.2, RDW Std Deviation 50.8 H, RDW Coeff of Juan Diego 17.5 H, Plt Count 154, MPV 9.8, Sodium 139, Potassium 3.0 L, Chloride 109 H, Carbon Dioxide 22.0, Anion Gap 8, BUN 52 H, Creatinine 4.37 H, Estim Creat Clear Calc 10.83, Est GFR (MDRD) Af Amer 13 L, Est GFR (MDRD) Non-Af 10 L, BUN/Creatinine Ratio 11.9, Glucose 131 H, Calcium 8.3 L 02/23/24 06:06: POC Glucose 127 H 02/23/24 08:17: Blood Type B POSITIVE, Antibody Screen NEGATIVE 02/23/24 13:10: POC Glucose 141 H Microbiology: Microbiology 02/20/24 00:51 Stool Stool Lactoferrin - Final 02/20/24 00:51 Stool Enteric Bacteriology - Final 02/20/24 00:51 Stool Clostridioides difficile (PCR) - Final 02/20/24 00:15 Stool Stool Occult Blood (ANDRES) - Final Occult Blood Positive D/C Instructions Discharge Diet: Low fat / Low cholesterol (For now try to get at least 2 L of fluid-mixed as we talked about daily) and 1800 Calorie Control Diet Discharge Activity: Return to Normal Activity and Use Walker Meaningful Use Info Meaningful Use Meaningful Use Diagnoses (Choose all that apply): None applicable Ischemic Stroke Statin Dosing Therapy Reference: STATIN DOSE THERAPY REFERENCE: * Patients > 75 years receive moderate or high dose statin therapy. * Patients 75 years or YOUNGER should receive HIGH intensity statin dose unless contraindicated. You will be required to document reason for non-treatment if statin daily dose does not meet guidelines. HIGH DOSE STATIN THERAPY DAILY Atorvastatin > than or = to 40 mg Rosuvastatin > than or = to 20 mg Amlodipine + Atorvastatin > than or = to 2.5/40 mg Ezetimibe + Simvastatin 10/80 mg Simvastatin 80mg Discharge Plan Admission Admit Date/Time: 02/15/24 21:03 Primary Reason for Your Visit: Abnormal labs-renal failure Attending Provider: Adrienne Prather Primary Care Provider: Elena Mims Consulting Providers: Glen Bonilla; Shari Prieto; Hamlet Mujica; Dewey Campos Instructions Additional Instructions / Restrictions: 1. Several of your medications will be on hold until your renal function recovers please no changes. 2. If you do not hear from Dr. Robertson-nephrology within the next week please call number below and set up appointment 3. Please call your primary care physician and set up a follow-up appointment to be seen in the next week and request that a basic metabolic profile be done within the next 3 to 5 days Discharge Orders/Prescriptions Prescriptions: New pantoprazole 40 mg Tablet,Delayed Release (Dr/Ec) 40 mg PO BID Qty: 60 1RF sucralfate 1 gram Tablet 1 g PO TID Qty: 135 0RF potassium chloride 20 mEq tablet extended release 20 meq PO DAILY Qty: 30 0RF Continued metoprolol succinate [Toprol XL] 50 MG tablet extended release 24 hr 100 mg PO DAILY folic acid 1 MG tablet 1 mg PO DAILY@0800 rosuvastatin [Crestor] 40 MG tablet 40 mg PO DAILY cholecalciferol (vitamin D3) 5,000 UNIT capsule 5,000 unit PO DAILY calcium carbonate-vitamin D3 [Caltrate with Vitamin D3] 1 TAB tablet 1 tab PO BID ferrous sulfate 325 MG tablet 325 mg PO DAILY citalopram 20 mg tablet 20 mg PO DAILY nystatin [Nyamyc] 100,000 unit/gram Powder 1 applic topical BID Qty: 60 0RF Protocol: *Topical Application Instructions APPLICATION INSTRUCTIONS: UNDER BREASTS, ABD FOLD, GROIN Rx Instructions: place on red areas of groin pentoxifylline 400 mg tablet extended release 400 mg PO DAILY vitamin E 268 mg (400 unit) capsule 268 mg PO DAILY loperamide 2 mg tablet 2 mg PO Q4H PRN (Reason: loose stool) Januvia 50 mg tablet 50 mg PO DAILY Qty: 1 0RF Rx Instructions: Only take 1/2 tablet daily until instructed otherwise Held alendronate 70 MG tablet 70 mg PO FAUSTIN Hold Instructions: Until instructed to restart furosemide 80 mg Tablet 80 mg PO DAILY Hold Instructions: Hold until instructed to restart Levemir FlexPen 100 unit/mL (3 mL) insulin pen 10 unit subcut QHS Hold Instructions: Until instructed to restart No Action acetaminophen [Tylenol] 325 MG tablet 650 mg PO Q6H PRN (Reason: Mild Pain (1-3)/Temp > 100.7 F) Referrals / Follow Up: Chelsie Robertson MD [Med Staff - Consulting] - See Referral Note (Office should be in contact with you within the next week if you do not hear from them please call to set up an appointment) Elena Mims DO [Primary Care Provider] - Within 1 Week FriendDewey DO [Med Staff - Active Staff] - 05/20/24 2:30 pm Disposition Disposition (needs filled in before D/C Order can be placed): Home Health Service Charges/Coding Visit Charges Inpatient E&M: 43988 Disch Hosp >30min
--- NOTE | 2024-02-23 15:21 | PHA.DC_ITS ---
Pharmacy [facility] Pharm[facility] Service has performed discharge medication reconciliation and counseling for this patient. The patient's discharge medication list was reviewed for discrepancies and discrepancies were resolved. The patient was counseled on the following discharge medications and changes in medications for homegoing were reviewed. The Reason for Use, instructions for use, and potential side effects were reviewed for all new medications. The patient's questions regarding all of their medications were answered. 1. Pantoprazole 40 mg PO BID 2. Potassium chloride 20 mEq po daily 3. Sucralfate 1 g PO TID The patient was able to verbally demonstrate an understanding of their discharge medications. Medications at Discharge Home Medications folic acid 1 mg tablet 1 mg PO DAILY@0800 SUPPLEMENT 01/21/17 metoprolol succinate 50 mg tablet,extended release 24 hr (Toprol XL) 100 mg PO DAILY HEART 01/21/17 rosuvastatin 40 mg tablet (Crestor) 40 mg PO DAILY CHOLESTEROL 01/21/17 alendronate 70 mg tablet 70 mg PO FAUSTIN BONES 03/05/19 calcium carbonate 600 mg-vitamin D3 20 mcg (800 unit) tablet (Caltrate with Vitamin D3) 1 tab PO BID SUPPLEMENT 03/05/19 cholecalciferol (vitamin D3) 125 mcg (5,000 unit) capsule 5,000 unit PO DAILY SUPPLEMENT 03/05/19 ferrous sulfate 325 mg (65 mg iron) tablet 325 mg PO DAILY supplement 03/20/21 citalopram 20 mg tablet 20 mg PO DAILY mental health 01/22/22 furosemide 80 mg tablet 80 mg PO DAILY diuretic 01/22/22 nystatin 100,000 unit/gram topical powder (Nyamyc) 1 applic topical BID #60 grams 01/25/22 acetaminophen 325 mg tablet (Tylenol) 650 mg PO Q6H PRN Mild Pain (1-3)/Temp > 100.7 F 02/15/24 insulin detemir U-100 100 unit/mL (3 mL) subcutaneous pen (Levemir FlexPen) 10 unit subcut QHS 02/15/24 loperamide 2 mg tablet 2 mg PO Q4H PRN loose stool 02/15/24 pentoxifylline 400 mg tablet,extended release 400 mg PO DAILY 02/15/24 vitamin E 268 mg (400 unit) capsule 268 mg PO DAILY 02/15/24 pantoprazole 40 mg tablet,delayed release 40 mg PO BID #60 tabs 02/23/24 potassium chloride 20 mEq tablet,extended release 20 meq PO DAILY #30 tabs 02/23/24 sitagliptin phosphate 50 mg tablet (Januvia) 50 mg PO DAILY #1 TAB 02/23/24 sucralfate 1 gram tablet 1 g PO TID #135 tabs 02/23/24
[2024-02-23] MEDS: Insulin Lispro 100 UNIT/ML INSULN.PEN SC (15:54)
[2024-02-23 16:22] LABS: Bedside Glucose 161 mg/dL (74-106)
== END 2024-02-23 17:40 | disposition home health service (06) | DRG 682 ==
LOC: ED 19:26 → PCU 21:06 → ICU 02-20 19:57 → PCU 02-21 16:57
PROVIDERS: Internal Medicine; Internal Medicine Gastroenterology; Admitting Provider Family Medicine; Emergency Provider Emergency Medicine; PCP Internal Medicine; Visit Provider Internal Medicine
PROC: 0DJ08ZZ Inspection of Upper Intestinal Tract, Via Natural or Artificial Opening Endoscopic (ICD-10-PCS; CPT 43235; principal; 2024-02-20 16:55)
PROC: 0DJD8ZZ Inspection of Lower Intestinal Tract, Via Natural or Artificial Opening Endoscopic (ICD-10-PCS; CPT 45378; principal; 2024-02-23 11:25)
DX: N17.9 Acute kidney failure, unspecified (principal); K26.4 Chronic or unspecified duodenal ulcer with hemorrhage; E87.20 Acidosis, unspecified; D62 Acute posthemorrhagic anemia; E87.1 Hypo-osmolality and hyponatremia; E83.39 Other disorders of phosphorus metabolism; E11.22 Type 2 diabetes mellitus with diabetic chronic kidney disease; N18.32 Chronic kidney disease, stage 3b; Z79.4 Long term (current) use of insulin; I12.9 Hypertensive chronic kidney disease with stage 1 through stage 4 chronic kidney disease, or unspecified chronic kidney disease; F32.A Depression, unspecified; E87.6 Hypokalemia; E78.5 Hyperlipidemia, unspecified; F41.9 Anxiety disorder, unspecified; K57.30 Diverticulosis of large intestine without perforation or abscess without bleeding; K63.5 Polyp of colon; E83.42 Hypomagnesemia; E86.0 Dehydration; K44.9 Diaphragmatic hernia without obstruction or gangrene; I89.0 Lymphedema, not elsewhere classified; Z68.32 Body mass index [BMI] 32.0-32.9, adult; B37.2 Candidiasis of skin and nail; M81.0 Age-related osteoporosis without current pathological fracture; E66.9 Obesity, unspecified; Z68.33 Body mass index [BMI] 33.0-33.9, adult; Z79.83 Long term (current) use of bisphosphonates; Z79.899 Other long term (current) drug therapy
CPT/HCPCS: 36415; 74176; 76770; 80048; 80053; 81001; 82274; 82436; 82570; 82607; 82728; 82962; 83540; 83550; 83630; 83735; 84100; 84133; 84300; 85014; 85018; 85025; 85027; 86850; 86900; 86901; 86920; 86922; 87493; 87506; 88305; 88313; 93005; 97110; 97116; 97162; 97166; 97530; 97535; 97802; 97803; 99284; J7030; J7040; J7050; J7120; P9016; A4216; J2405; J3490

== ENCOUNTER → 2024-03-01 | Outpatient (CLI) | payer MEDICARE, SELFPAY ==
[2024-03-01 12:40] LABS: Hematocrit 25.6 % (37-47); Hemoglobin 7.8 g/dL (12.0-15.0); Mean Corp Hgb Conc 30.5 g/dL (32-36); Mean Corpuscular Hgb 26.3 pg (27.0-32.0); Mean Corpuscular Volume 86.2 fL (81-99); Mean Platelet Vol. 10.8 fl (6.2-12.0); Platelet Count 304 K/mm3 (150-450); RBC Distribution Width CV 17.6 % (11.6-14.6); Red Blood Count 2.97 M/mm3 (4.2-5.4); White Blood Count 9.4 K/mm3 (4.4-11.0)
[2024-03-01 12:59] LABS: Albumin, Serum 2.6 g/dL (3.2-5.0); BUN 44 mg/dL (7-18); BUN/Creat Ratio 14.2 RATIO (10-20); Calcium,Total 7.8 mg/dL (8.5-10.1); Chloride 113 mmol/L (98-107); Creatinine, Serum 3.09 mg/dL (0.55-1.02); EST Glomerular Filtration Rate 16 mL/min (>60); Est Glom Filt Rate - Afr Amer 19 mL/min (>60); Glucose 144 mg/dL (74-106); Phosphorus 2.7 mg/dL (2.5-4.9); Potassium 4.3 mmol/L (3.5-5.1); Sodium Level 142 mmol/L (136-145)
[2024-03-01 16:27] LABS: Protein, Urine (Random) 32.5 mg/dL (<11.9); Protein:Creat Ratio 825 mg/g CRE (0-200)
== END | disposition home or self-care (01) ==
LOC: MTLAB 10:30
PROVIDERS: PCP Internal Medicine; Referring Provider Internal Medicine Nephrology; Visit Provider Internal Medicine Nephrology
DX: N18.32 Chronic kidney disease, stage 3b (principal)
CPT/HCPCS: 36415; 80069; 82570; 84156; 85027

== ENCOUNTER → 2024-03-07 | Outpatient (CLI) | payer MEDICARE, SELFPAY ==
[2024-03-07 10:37] LABS: Absolute Lymphocyte Count 1.11 X10^3/uL (0.83-4.51); Absolute Neutrophil Count 7.4 X10^3/uL (2.0-7.7); Basophil# 0.07 X10^3/uL; Basophil% 0.7 % (0-1); Eosinophil# 0.28 X10^3/uL; Eosinophils% 2.6 % (0-5); Hematocrit 27.8 % (37-47); Hemoglobin 8.2 g/dL (12.0-15.0); Lymphocyte # 1.11 X10^3/ul (0.83-4.51); Lymphocyte % 10.4 % (19-41); Mean Corp Hgb Conc 29.5 g/dL (32-36); Mean Corpuscular Hgb 25.9 pg (27.0-32.0); Mean Platelet Vol. 10.6 fl (6.2-12.0); Monocyte# 1.73 X10^3/uL; Monocyte% 16.2 % (0-10); NRBC Flagged by Analyzer 0 % (0-5); Neutrophil % 69.1 % (47-70); POSITIVE DIFFERENTIAL YES; Platelet Count 381 K/mm3 (150-450); RBC Distribution Width CV 18.2 % (11.6-14.6); RBC Distribution Width SD 58.4 fl (35.1-43.9); Red Blood Count 3.16 M/mm3 (4.2-5.4); White Blood Count 10.7 K/mm3 (4.4-11.0)
[2024-03-07 10:41] LABS: Differential Indicated SCAN CRITERIA MET
[2024-03-07 11:01] LABS: Anion Gap 4 (5-15); BUN 50 mg/dL (7-18); BUN/Creat Ratio 19.4 RATIO (10-20); Calcium,Total 7.9 mg/dL (8.5-10.1); Chloride 114 mmol/L (98-107); Creatinine, Serum 2.58 mg/dL (0.55-1.02); EST Glomerular Filtration Rate 19 mL/min (>60); Est Glom Filt Rate - Afr Amer 23 mL/min (>60); Glucose 153 mg/dL (74-106); Potassium 4.6 mmol/L (3.5-5.1); Sodium Level 143 mmol/L (136-145)
== END | disposition home or self-care (01) ==
LOC: LABSPEC 10:26
PROVIDERS: PCP Internal Medicine; Referring Provider Internal Medicine; Visit Provider Internal Medicine
DX: N17.9 Acute kidney failure, unspecified (principal); N18.9 Chronic kidney disease, unspecified
CPT/HCPCS: 80048; 85025

== ENCOUNTER 2024-04-08 13:44 | Inpatient (IN) | payer MEDICARE, SELFPAY ==
[2024-04-08] VITALS (7 sets, daily range): BP systolic 177–220; BP diastolic 64–95; PULSE 58–63; RESP 16–25; TEMP 36.3–36.7; O2SAT 93–96; BMI 40.4; BMI 39.2
--- NOTE | 2024-04-08 14:37 | EDS_ITS ---
HPI History of Present Illness Chief Complaint: Hypertension Informant: patient Narrative Narrative: Sent in after home health nurse blood pressure 202 today. Hospitalized a month ago for upper GI bleed status post 4 units of blood with ulcer clips and cauterization. She also been having leg swelling since being discharged she had acute kidney injury and saw nephrology. This past had a systolic blood pressure 160 PCP was contacted started on lisinopril 10 mg along with Lasix 40 mg daily. She has been taking her medications. Swelling has been improving. She has been urinating normally. Today blood pressure systolic 202 PCP is contacted again, patient sent to the ED. No headache lightheaded symptoms chest pain shortness of breath nausea vomiting. Denies any abdominal pain. [facility] Medical History Anxiety Diabetes Kidney disease GI bleed Non-smoker Upper GI bleed Duodenal ulcer Candidiasis of breast History of anemia History of hypertension History of chronic kidney disease History of hyperlipidemia History of diabetes insipidus Candidal intertrigo Stage 3b chronic kidney disease (CKD) Osteoporosis Hyperlipidemia Anemia Hypertension Lymphedema Morbid obesity History of gastroesophageal reflux (GERD) Type II diabetes mellitus Home Medications ?Medication ?Instructions ?Recorded ?Last Taken ?Type folic acid 1 mg tablet 1 mg PO DAILY@0800 SUPPLEMENT 01/21/17 04/08/24 History metoprolol succinate 50 mg 100 mg PO DAILY HEART 01/21/17 02/14/24 History tablet,extended release 24 hr (Toprol XL) rosuvastatin 40 mg tablet (Crestor) 40 mg PO QHS CHOLESTEROL 01/21/17 04/07/24 History alendronate 70 mg tablet 70 mg PO FAUSTIN BONES 03/05/19 04/07/24 History calcium carbonate 600 mg-vitamin 1 tab PO BID SUPPLEMENT 03/05/19 04/08/24 History D3 20 mcg (800 unit) tablet (Caltrate with Vitamin D3) cholecalciferol (vitamin D3) 125 5,000 unit PO DAILY SUPPLEMENT 03/05/19 04/08/24 History mcg (5,000 unit) capsule citalopram 20 mg tablet 20 mg PO QHS mental health 01/22/22 04/07/24 History nystatin 100,000 unit/gram topical 1 applic topical BID #60 grams 01/25/22 04/08/24 Rx powder (Nyamyc) acetaminophen 325 mg tablet 650 mg PO Q6H PRN Mild Pain 02/15/24 02/14/24 History (Tylenol) (1-3)/Temp > 100.7 F insulin detemir U-100 100 unit/mL 10 unit subcut QHS 02/15/24 02/13/24 History (3 mL) subcutaneous pen (Levemir FlexPen) pentoxifylline 400 mg 400 mg PO DAILY 02/15/24 04/08/24 History tablet,extended release vitamin E 268 mg (400 unit) capsule 268 mg PO DAILY 02/15/24 04/08/24 History pantoprazole 40 mg tablet,delayed 40 mg PO BID #60 tabs 02/23/24 04/08/24 Rx release potassium chloride 20 mEq 20 meq PO DAILY #30 tabs 02/23/24 04/01/24 Rx tablet,extended release sucralfate 1 gram tablet 1 g PO TID #135 tabs 02/23/24 04/08/24 Rx budesonide 3 mg 9 mg (3 x 3 mg) PO DAILY #90 ea 02/28/24 04/08/24 Rx capsule,delayed,extended release furosemide 20 mg tablet See Rx Instructions PO .COMPLEX 04/08/24 04/06/24 History lisinopril 10 mg tablet 10 mg PO BID 04/08/24 04/08/24 History sitagliptin phosphate 50 mg tablet 50 mg PO DAILY BLOOD SUGAR 04/08/24 04/08/24 History (Januvia) Allergy/AdvReac Type Severity Reaction Status Date / Time chlorhexidine Allergy Unknown Verified 04/08/24 13:48 Iodinated Contrast Media Allergy Other Verified 04/08/24 13:48 (CONTRASTS) iodine Allergy Unknown Verified 04/08/24 13:48 latex Allergy Rash Verified 04/08/24 13:48 Family History Other Diabetes Surgical History History of elbow surgery History of tonsillectomy and adenoidectomy 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 Social History household members: none Smoking Status: Never smoker alcohol intake: never substance use type: does not use ROS ROS ED Constitutional Constitutional ED: Denies chills, fever(s) or sweats Eyes Eyes: Denies change in vision ENT ENT ED: Denies dysphagia or sore throat Cardiovascular Cardiovascular: Denies chest pain, leg edema, palpitations or racing heartbeat Respiratory/Chest Respiratory/Chest: Denies cough, dyspnea or dyspnea on exertion Gastrointestinal Gastrointestinal: Denies abdominal pain, diarrhea, nausea or vomiting Genitourinary Genitourinary ED: Denies dysuria, hematuria or urinary frequency Musculoskeletal Musculoskeletal: Denies back pain, extremity pain or neck pain Integumentary Denies rash or wounds Neurologic Neurologic: Denies headache(s), paresthesias or weakness EXAM Physical Exam Const Vital Signs: 04/08/24 13:46 04/08/24 14:24 04/08/24 16:21 Temperature 97.3 F L Temperature Source Temporal Pulse Rate 58 L 63 Respiratory Rate 16 25 H Respiratory Effort Normal Non-Labored Respiratory Pattern Normal Blood Pressure 212/95 H 220/86 H Blood Pressure Mean 134 130 Pulse Ox 96 93 Oxygen Delivery Method Room Air Room Air 04/08/24 16:45 Temperature 97.3 F L Temperature Source Pulse Rate 62 Respiratory Rate 25 H Respiratory Effort Respiratory Pattern Blood Pressure 199/75 H Blood Pressure Mean 116 Pulse Ox 94 Oxygen Delivery Method Positive well nourished and well developed General Appearance ED: well developed and NAD HEENT Reports moist mucous membranes normocephalic and atraumatic Eyes EOMs intact bilaterally and conjunctivae normal General Eye ED: Yes normal appearance of both eyes Neck no lymphadenopathy and supple General: Negative for tenderness Chest Wall Chest: Negative for tenderness Resp normal respiratory effort and normal air movement Effort and Inspection: symmetric chest movement; Negative for respiratory distress Cardio regular rate, regular rhythm and no murmurs Peripheral Pulses: pulses 2+ throughout GI normal to inspection, nondistended, normoactive bowel sounds and non-tender Palpation: Negative for guarding or rebound tenderness present Back/Spine no CVA tenderness and no thoracic nor lumbar tenderness Extremity normal to inspection Extremity Narrative: Fuentes wrap bilateral lower extremities with minimal swelling. No calf tenderness. General Extremety ED: Yes edema; Negative for tenderness General Extremity: edema Neuro oriented x3 and no sensory deficits noted Sensorium / Orientation: awake and alert Skin no rashes or lesions noted and no wounds MDM MDM MDM Narrative Medical decision making narrative: Interventions / MDM: Differential diagnosis: Accelerated hypertension, electrolyte abnormalities Diagnosis considered but do not suspect: No findings of hypertensive emergency My EKG interpretation: Sinus rate of 62, no ST changes. QTc 349. Imaging independently reviewed and interpreted by myself: N/A External documents reviewed: N/A Test considered but not ordered:N/A ED course: Blood pressure systolic 212 on arrival. She is asymptomatic. Will keep on her blood pressure recent kidney injury, leg swelling reported improving. Will check labs EKG urine. 1620: Lab work stable anemia with hemoglobin 8.4. Improving creatinine trending down 2.38 GFR 21 compared to recent one. Blood pressure persistently elevated in the room was 193/77 on her previous read however rechecked by nursing 220/86. 10 mg hydralazine ordered. Her potassium was 2.2 magnesium added oral potassium started. She also reports she ran out of her potassium replacement a week ago on top of that was started on Lasix status post 4 doses. With accelerated hypertension and hypokalemia, discussed with hospitalist Dr. Major for admission to PCU. Magnesium did return at 1.6 low normal in the labs. Re-evaluation: stable Disposition discussed with patient/family/significant other: Patient Case discussed with consulting clinician: Hospitalist This note was generated with interspireSubmit dictation software. It may contain incorrect words, spelling, and punctuation that were not noted in checking the note before signing. Lab Data Attestation: I reviewed the patient's lab results. Labs: Laboratory Results - last 24 hr 04/08/24 04/08/24 14:52 14:55 WBC 9.4 RBC 3.16 L Hgb 8.4 L Hct 27.3 L MCV 86.4 MCH 26.6 L MCHC 30.8 L RDW Std Deviation 51.3 H RDW Coeff of [place] 16.1 H Plt Count 252 MPV 10.4 Immature Gran % (Auto) 0.400 Neut % (Auto) 80.2 H Lymph % (Auto) 6.6 L [place] % (Auto) 10.6 H Eos % (Auto) 1.9 Baso % (Auto) 0.3 Absolute Neuts (auto) 7.5 Absolute Lymphs (auto) 0.62 L Nucleated RBC % 0 Sodium 142 Potassium 2.2 L* Chloride 108 H Carbon Dioxide 28.0 Anion Gap 6 BUN 27 H Creatinine 2.38 H Estim Creat Clear Calc 21.92 Est GFR (MDRD) Af Amer 25 L Est GFR (MDRD) Non-Af 21 L BUN/Creatinine Ratio 11.3 Glucose 162 H Calcium 8.8 Magnesium 1.6 Troponin I High Sens 23 Urine Color Yellow Urine Clarity Clear Urine pH 6.5 Ur Specific [place] 1.005 Urine Protein 30 H Urine Glucose (UA) Normal Urine Ketones Negative Urine Occult Blood 10 H Urine Nitrite Negative Urine Bilirubin Negative Urine Urobilinogen Normal Ur Leukocyte Esterase Negative Urine RBC 0-5 SEEN Urine WBC 0-5 SEEN Ur Squamous Epith Cells 0 SEEN Urine Bacteria 0 SEEN Urine Mucus 0 SEEN Discharge Plan Dx/Rx/DC Orders Clinical Impression: Accelerated hypertension, Acute hypokalemia, CKD (chronic kidney disease), Anemia Disposition Disposition: Acute Care Hospital [facility] Discharge Date/Time: 04/08/24 17:31
--- NOTE | 2024-04-08 14:37 | EKG12_ITS ---
Test Reason : Blood Pressure : / mmHG Vent. Rate : 062 BPM Atrial Rate : 062 BPM P-R Int : 202 ms QRS Dur : 090 ms QT Int : 344 ms P-R-T Axes : 063 -23 056 degrees QTc Int : 349 ms Normal sinus rhythm Minimal voltage criteria for LVH, may be normal variant ( [place] product ) Abnormal ECG Confirmed by BETSY PAREDES, CLIFF ([id number]), social media editor EFRA RUIZ ([id number]) on 04/09/2024 8:17:55 AM Referred By: GILBERT Confirmed By:CLIFF MEYER MD
[2024-04-08 15:10] LABS: Bacteria 0 SEEN /hpf (None Seen); Mucous, Urine 0 SEEN /hpf (<or=2+); Squamous Epithelial Cells - UA 0 SEEN /hpf (5-10)
[2024-04-08 15:12] LABS: Absolute Lymphocyte Count 0.62 X10^3/uL (0.83-4.51); Absolute Neutrophil Count 7.5 X10^3/uL (2.0-7.7); Basophil# 0.03 X10^3/uL; Basophil% 0.3 % (0-1); Eosinophil# 0.18 X10^3/uL; Eosinophils% 1.9 % (0-5); Hematocrit 27.3 % (37-47); Hemoglobin 8.4 g/dL (12.0-15.0); Lymphocyte # 0.62 X10^3/ul (0.83-4.51); Lymphocyte % 6.6 % (19-41); Mean Corp Hgb Conc 30.8 g/dL (32-36); Mean Corpuscular Hgb 26.6 pg (27.0-32.0); Mean Corpuscular Volume 86.4 fL (81-99); Mean Platelet Vol. 10.4 fl (6.2-12.0); Monocyte# 0.99 X10^3/uL; Monocyte% 10.6 % (0-10); NRBC Flagged by Analyzer 0 % (0-5); Neutrophil % 80.2 % (47-70); Platelet Count 252 K/mm3 (150-450); RBC Distribution Width CV 16.1 % (11.6-14.6); RBC Distribution Width SD 51.3 fl (35.1-43.9); Red Blood Count 3.16 M/mm3 (4.2-5.4); White Blood Count 9.4 K/mm3 (4.4-11.0)
[2024-04-08 15:34] LABS: Color, Urine Yellow (Yellow); Glucose, Dipstick Normal (Normal); Ketone-Dipstick Negative (Negative); Leukocyte Esterase-Dipstick Negative /ul (Negative); Nitrite-Dipstick Negative (Negative); Occult Blood-Urine 10 /ul (Negative); Protein-Dipstick 30 mg/dl (Negative); Specific Gravity, Urine 1.005 (1.002-1.030); Urine Bilirubin Dipstick Negative (Negative); Urine Clarity Clear (Clear); Urine Urobilinogen Normal (Normal); Urine pH 6.5 (5.0 - 8.0)
[2024-04-08 15:39] LABS: Anion Gap 6 (5-15); BUN 27 mg/dL (7-18); BUN/Creat Ratio 11.3 RATIO (10-20); Calcium,Total 8.8 mg/dL (8.5-10.1); Chloride 108 mmol/L (98-107); Creatinine, Serum 2.38 mg/dL (0.55-1.02); EST Glomerular Filtration Rate 21 mL/min (>60); Est Glom Filt Rate - Afr Amer 25 mL/min (>60); Estimated Creatinine Clearance 21.92 ml/min; Glucose 162 mg/dL (74-106); Potassium 2.2 mmol/L (3.5-5.1); Sodium Level 142 mmol/L (136-145); Troponin-I HS 23 pg/mL (3.0-54.0)
[2024-04-08 15:56] LABS: Red Blood Cells-Urine 0-5 SEEN /hpf (0-5); White Blood Cells 0-5 SEEN /hpf (0-5)
--- NOTE | 2024-04-08 16:35 | NURSING ---
PCU OBS OLEGHE HYPOKALEMIA, ACCELERATED HTN
[2024-04-08] MEDS: Potassium Chloride Oral Tablet 20 MEQ 40 MEQ PO (16:38)
[2024-04-08] MEDS: hydrALAZINE 20 MG/ML Vial 10 MG IV (16:38)
[2024-04-08 16:49] LABS: Magnesium 1.6 mg/dL (1.6-2.6)
[2024-04-08] MEDS: Minoxidil 2.5 MG Tablet PO (18:15)
[2024-04-08] MEDS: Lisinopril 20 MG Tablet PO (18:16)
--- NOTE | 2024-04-08 18:59 | HP.PCM_ITS ---
HPI - General General Date of Admission: 04/08/24 Date of Service: 04/08/24 Chief Complaint: High blood pressure HPI Narrative AZUL NAVARRETE, is a 78 F with history of CKD stage III/IV and recent hospitalization for upper GI bleeding who presents with 1 day history of mild elevated blood pressure. Noted to have systolic blood pressure in the 200s at home and so patient sent to the emergency department. Patient denies any chest pain or shortness of breath or palpitations. Denies any nausea or vomiting. Does have some lower extremity swelling which she states is improving with Lasix. Patient is compliant with an hypertensives. [facility] Medical History Anxiety Diabetes Kidney disease GI bleed Non-smoker Upper GI bleed Duodenal ulcer Candidiasis of breast History of anemia History of hypertension History of chronic kidney disease History of hyperlipidemia History of diabetes insipidus Candidal intertrigo Stage 3b chronic kidney disease (CKD) Osteoporosis Hyperlipidemia Anemia Hypertension Lymphedema Morbid obesity History of gastroesophageal reflux (GERD) Type II diabetes mellitus Home Medications ?Medication ?Instructions ?Recorded ?Last Taken ?Type folic acid 1 mg tablet 1 mg PO DAILY@0800 SUPPLEMENT 01/21/17 04/08/24 History metoprolol succinate 50 mg 100 mg PO DAILY HEART 01/21/17 02/14/24 History tablet,extended release 24 hr (Toprol XL) rosuvastatin 40 mg tablet (Crestor) 40 mg PO QHS CHOLESTEROL 01/21/17 04/07/24 History alendronate 70 mg tablet 70 mg PO FAUSTIN BONES 03/05/19 04/07/24 History calcium carbonate 600 mg-vitamin 1 tab PO BID SUPPLEMENT 03/05/19 04/08/24 History D3 20 mcg (800 unit) tablet (Caltrate with Vitamin D3) cholecalciferol (vitamin D3) 125 5,000 unit PO DAILY SUPPLEMENT 03/05/19 04/08/24 History mcg (5,000 unit) capsule citalopram 20 mg tablet 20 mg PO QHS mental health 01/22/22 04/07/24 History nystatin 100,000 unit/gram topical 1 applic topical BID #60 grams 01/25/22 04/08/24 Rx powder (Nyamyc) acetaminophen 325 mg tablet 650 mg PO Q6H PRN Mild Pain 02/15/24 02/14/24 History (Tylenol) (1-3)/Temp > 100.7 F insulin detemir U-100 100 unit/mL 10 unit subcut QHS 02/15/24 02/13/24 History (3 mL) subcutaneous pen (Levemir FlexPen) pentoxifylline 400 mg 400 mg PO DAILY 02/15/24 04/08/24 History tablet,extended release vitamin E 268 mg (400 unit) capsule 268 mg PO DAILY 02/15/24 04/08/24 History pantoprazole 40 mg tablet,delayed 40 mg PO BID #60 tabs 02/23/24 04/08/24 Rx release potassium chloride 20 mEq 20 meq PO DAILY #30 tabs 02/23/24 04/01/24 Rx tablet,extended release sucralfate 1 gram tablet 1 g PO TID #135 tabs 02/23/24 04/08/24 Rx budesonide 3 mg 9 mg (3 x 3 mg) PO DAILY #90 ea 02/28/24 04/08/24 Rx capsule,delayed,extended release furosemide 20 mg tablet See Rx Instructions PO .COMPLEX 04/08/24 04/06/24 History lisinopril 10 mg tablet 10 mg PO BID 04/08/24 04/08/24 History sitagliptin phosphate 50 mg tablet 50 mg PO DAILY BLOOD SUGAR 04/08/24 04/08/24 History (Januvia) Allergy/AdvReac Type Severity Reaction Status Date / Time chlorhexidine Allergy Unknown Verified 04/08/24 13:48 Iodinated Contrast Media Allergy Other Verified 04/08/24 13:48 (CONTRASTS) iodine Allergy Unknown Verified 04/08/24 13:48 latex Allergy Rash Verified 04/08/24 13:48 Family History Other Diabetes Surgical History History of elbow surgery History of tonsillectomy and adenoidectomy 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 All other systems reviewed and essentially negative as above in the body of the history. Vital Signs Vital Signs Vital Signs: 04/08/24 13:46 04/08/24 14:24 04/08/24 16:21 Temperature 36.3 C L Temperature Source Temporal Pulse Rate 58 L 63 Respiratory Rate 16 25 H Respiratory Effort Normal Non-Labored Respiratory Pattern Normal Blood Pressure 212/95 H 220/86 H Blood Pressure Mean 134 130 Blood Pressure Source Blood Pressure Position Blood Pressure Location Pulse Ox 96 93 Oxygen Delivery Method Room Air Room Air 04/08/24 16:45 04/08/24 17:54 Temperature 36.3 C L 36.7 C Temperature Source Oral Pulse Rate 62 58 L Respiratory Rate 25 H 20 H Respiratory Effort Respiratory Pattern Blood Pressure 199/75 H 215/72 H Blood Pressure Mean 116 119 Blood Pressure Source Monitor Blood Pressure Position Semi-Fowlers Blood Pressure Location Right Arm Pulse Ox 94 93 Oxygen Delivery Method Room Air Weight Weight: 97.3 kg Body Mass Index (BMI) 39.2 Physical Exam Narrative General examination. Elderly male, obese, not in any overt distress, pleasant and cooperative. HEENT. Oral mucosa moist, no pallor or jaundice Neck. Neck is supple with no jugular venous distention Lungs. Clear to auscultation. Heart. First and second heart sounds heard without any murmurs Abdomen. Obese and moves with respiration, nontender Extremities. Both lower extremities in compression wrap and with minimal edema. 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 Conscious and alert and oriented x 3. Cranial nerves II to XII grossly intact. Results Medical Records Data Attestation: I reviewed the patient's medical records Lab / Micro Data Attestation: I reviewed the patient's lab results. 04/08/24 14:52 04/08/24 14:52 Labs: Laboratory Results - last 24 hr 04/08/24 14:52: WBC 9.4, RBC 3.16 L, Hgb 8.4 L, Hct 27.3 L, MCV 86.4, MCH 26.6 L , MCHC 30.8 L, RDW Std Deviation 51.3 H, RDW Coeff of [place] 16.1 H, Plt Count 252, MPV 10.4, Immature Gran % (Auto) 0.400, Neut % (Auto) 80.2 H, Lymph % (Auto) 6.6 L, [place] % (Auto) 10.6 H, Eos % (Auto) 1.9, Baso % (Auto) 0.3, Absolute Neuts (auto) 7.5, Absolute Lymphs (auto) 0.62 L, Nucleated RBC % 0, Sodium 142, P otassium 2.2 L*, Chloride 108 H, Carbon Dioxide 28.0, Anion Gap 6, BUN 27 H, C reatinine 2.38 H, Estim Creat Clear Calc 21.92, Est GFR (MDRD) Af Amer 25 L, Est GFR (MDRD) Non-Af 21 L, BUN/Creatinine Ratio 11.3, Glucose 162 H, Calcium 8.8, Magnesium 1.6, Troponin I High Sens 23 04/08/24 14:55: Urine Color Yellow, Urine Clarity Clear, Urine pH 6.5, Ur Specific [place] 1.005, Urine Protein 30 H, Urine Glucose (UA) Normal, Urine Ketones Negative, Urine Occult Blood 10 H, Urine Nitrite Negative, Urine Bilirubin Negative, Urine Urobilinogen Normal, Ur Leukocyte Esterase Negative, Urine RBC 0-5 SEEN, Urine WBC 0-5 SEEN, Ur Squamous Epith Cells 0 SEEN, Urine Bacteria 0 SEEN, Urine Mucus 0 SEEN Assessment & Plan Assessment/Plan (1) Hypertensive urgency: PLAN: Plan 1. Hypertensive urgency. Patient largely asymptomatic. Blood pressure poorly control most likely secondary to advanced chronic kidney disease. Will start patient on minoxidil 2.5 mg daily and increase lisinopril to 40 mg daily. Keep on telemetry. Continue Lasix 40 mg daily. Uptitrate antihypertensives based on blood pressure response. IV hydralazine 10 mg every 4 hours as needed for systolic blood pressure greater than 180 mmHg. 2. Morbid obesity. Lifestyle modifications as able. 3. Chronic kidney disease stage III/IV. Appears to be stable. Actually improved from recent blood work. 4. Anemia. Most likely is combination of chronic kidney disease and recent anemia from blood loss. Hemoglobin 8.4 today and is stable. Will continue to monitor. 5. Hypokalemia. Secondary to loop diuretics. Supplement orally. Consider addition of Aldactone for added blood pressure control and potassium sparing. Charges/Coding Visit Charges Inpatient E&M: 97695 Init Hosp L3
[2024-04-08] MEDS: Acetaminophen 325 MG Tablet 650 MG PO (20:47)
[2024-04-08] MEDS: amLODIPine 10 MG Tablet PO (20:50)
[2024-04-08] MEDS: Pantoprazole Sodium 40 MG Tablet PO (20:50)
[2024-04-08] MEDS: Citalopram 20 MG Tablet PO (20:51)
[2024-04-08] MEDS: Atorvastatin Calcium 80 MG Tablet PO (20:53)
[2024-04-08] MEDS: Insulin Glargine-YFGN 100 UNIT/ML Pen 10 UNIT SC (20:58)
[2024-04-08] MEDS: Heparin Injection (Vial) 5,000 UNIT/ML VIAL 5000 UNIT SC (21:00)
[2024-04-08] MEDS: Nystatin Powder 15gm Bottle 1 APPLIC TOPICAL (22:22)
[2024-04-09] VITALS (10 sets, daily range): BP systolic 143–189; BP diastolic 51–73; PULSE 54–65; RESP 16–18; TEMP 36.4–36.6; O2SAT 93–95
[2024-04-09 00:30] LABS: Bedside Glucose 150 mg/dL (74-106)
[2024-04-09] MEDS: hydrALAZINE 20 MG/ML Vial 10 MG IV (03:12)
[2024-04-09] MEDS: 0.9% Saline Lock 10 ML Syringe IV (03:13)
[2024-04-09] MEDS: Acetaminophen 325 MG Tablet 650 MG PO ×2 (03:50→11:57)
[2024-04-09 05:54] LABS: Absolute Lymphocyte Count 0.64 X10^3/uL (0.83-4.51); Absolute Neutrophil Count 7.6 X10^3/uL (2.0-7.7); Basophil# 0.05 X10^3/uL; Basophil% 0.5 % (0-1); Eosinophil# 0.22 X10^3/uL; Eosinophils% 2.2 % (0-5); Hematocrit 27.4 % (37-47); Hemoglobin 8.4 g/dL (12.0-15.0); Lymphocyte # 0.64 X10^3/ul (0.83-4.51); Lymphocyte % 6.5 % (19-41); Mean Corp Hgb Conc 30.7 g/dL (32-36); Mean Corpuscular Hgb 26.2 pg (27.0-32.0); Mean Corpuscular Volume 85.4 fL (81-99); Mean Platelet Vol. 10.8 fl (6.2-12.0); Monocyte# 1.25 X10^3/uL; Monocyte% 12.7 % (0-10); NRBC Flagged by Analyzer 0 % (0-5); Neutrophil # 7.64 X10^3/uL (2.7-7.7); Neutrophil % 77.8 % (47-70); Platelet Count 257 K/mm3 (150-450); RBC Distribution Width CV 15.8 % (11.6-14.6); RBC Distribution Width SD 49.3 fl (35.1-43.9); Red Blood Count 3.21 M/mm3 (4.2-5.4); White Blood Count 9.8 K/mm3 (4.4-11.0)
[2024-04-09] MEDS: Sucralfate 1 GM Tablet PO ×3 (06:21→16:20)
[2024-04-09] MEDS: Heparin Injection (Vial) 5,000 UNIT/ML VIAL 5000 UNIT SC ×3 (06:21→21:11)
[2024-04-09 06:59] LABS: Bedside Glucose 127 mg/dL (74-106)
[2024-04-09 07:28] LABS: ALB/GLOB Ratio 0.8 RATIO (0.9-2.4); AST(SGOT) 10 U/L (15-37); Alanine Aminotransfer ALT/SGPT 12 U/L (13-56); Albumin, Serum 2.8 g/dL (3.2-5.0); Alkaline Phosphatase 66 U/L (45-117); Anion Gap 5 (5-15); BUN 25 mg/dL (7-18); BUN/Creat Ratio 11.4 RATIO (10-20); Calcium,Total 8.7 mg/dL (8.5-10.1); Chloride 110 mmol/L (98-107); EST Glomerular Filtration Rate 23 mL/min (>60); Est Glom Filt Rate - Afr Amer 28 mL/min (>60); Estimated Creatinine Clearance 23.32 ml/min; Globulin 3.3 g/dL (2.2-4.2); Glucose 138 mg/dL (74-106); Magnesium 1.5 mg/dL (1.6-2.6); Phosphorus 2.5 mg/dL (2.5-4.9); Potassium 2.2 mmol/L (3.5-5.1); Protein, Total 6.1 g/dL (6.4-8.2); Sodium Level 144 mmol/L (136-145)
--- NOTE | 2024-04-09 08:27 | PN.HOSP_ITS ---
Reason for Visit Reason for Visit: Diagnoses Hypertensive urgency (04/08/24) Subjective Subjective Feels fine. Had no idea her blood pressure as high as it was. Objective Data Objective Data Vital Signs: Vital Signs Temp Pulse Resp BP Pulse Ox O2 Del Method 36.6 C 58 L 16 178/65 H 93 Room Air 04/09/24 03:00 04/09/24 03:12 04/09/24 03:00 04/09/24 03:45 04/09/24 03:00 04/09/24 03:00 Oxygen Delivery Method Room Air Weight: 97.3 kg Body Mass Index (BMI) 39.2 Intake & Output: Intake and Output for Last 24 Hours 04/07/24 04/08/24 04/09/24 23:59 23:59 23:59 Output Total 500 / 500 Balance -500 / -500 Lab / Micro Data 04/09/24 05:16 04/09/24 05:16 Labs: Laboratory Results - last 24 hr 04/08/24 14:52: WBC 9.4, RBC 3.16 L, Hgb 8.4 L, Hct 27.3 L, MCV 86.4, MCH 26.6 L , MCHC 30.8 L, RDW Std Deviation 51.3 H, RDW Coeff of [place] 16.1 H, Plt Count 252, MPV 10.4, Immature Gran % (Auto) 0.400, Neut % (Auto) 80.2 H, Lymph % (Auto) 6.6 L, [place] % (Auto) 10.6 H, Eos % (Auto) 1.9, Baso % (Auto) 0.3, Absolute Neuts (auto) 7.5, Absolute Lymphs (auto) 0.62 L, Nucleated RBC % 0, Sodium 142, P otassium 2.2 L*, Chloride 108 H, Carbon Dioxide 28.0, Anion Gap 6, BUN 27 H, C reatinine 2.38 H, Estim Creat Clear Calc 21.92, Est GFR (MDRD) Af Amer 25 L, Est GFR (MDRD) Non-Af 21 L, BUN/Creatinine Ratio 11.3, Glucose 162 H, Calcium 8.8, Magnesium 1.6, Troponin I High Sens 23 04/08/24 14:55: Urine Color Yellow, Urine Clarity Clear, Urine pH 6.5, Ur Specific [place] 1.005, Urine Protein 30 H, Urine Glucose (UA) Normal, Urine Ketones Negative, Urine Occult Blood 10 H, Urine Nitrite Negative, Urine Bilirubin Negative, Urine Urobilinogen Normal, Ur Leukocyte Esterase Negative, Urine RBC 0-5 SEEN, Urine WBC 0-5 SEEN, Ur Squamous Epith Cells 0 SEEN, Urine Bacteria 0 SEEN, Urine Mucus 0 SEEN 04/08/24 20:57: POC Glucose 150 H 04/09/24 05:16: WBC 9.8, RBC 3.21 L, Hgb 8.4 L, Hct 27.4 L, MCV 85.4, MCH 26.2 L , MCHC 30.7 L, RDW Std Deviation 49.3 H, RDW Coeff of [place] 15.8 H, Plt Count 257, MPV 10.8, Immature Gran % (Auto) 0.300, Neut % (Auto) 77.8 H, Lymph % (Auto) 6.5 L, [place] % (Auto) 12.7 H, Eos % (Auto) 2.2, Baso % (Auto) 0.5, Absolute Neuts (auto) 7.6, Absolute Lymphs (auto) 0.64 L, Nucleated RBC % 0, Sodium 144, P otassium 2.2 L*, Chloride 110 H, Carbon Dioxide 29.0, Anion Gap 5, BUN 25 H, C reatinine 2.20 H, Estim Creat Clear Calc 23.32, Est GFR (MDRD) Af Amer 28 L, Est GFR (MDRD) Non-Af 23 L, BUN/Creatinine Ratio 11.4, Glucose 138 H, Calcium 8.7, Phosphorus 2.5, Magnesium 1.5 L, Total Bilirubin 1.30 H, AST 10 L, ALT 12 L, Alkaline Phosphatase 66, Total Protein 6.1 L, Albumin 2.8 L, Globulin 3.3, A lbumin/Globulin Ratio 0.8 L 04/09/24 06:20: POC Glucose 127 H Physical Exam Const alert and no apparent distress HEENT head/scalp atraumatic and moist oral mucous membranes Resp normal respiratory effort and no retractions Cardio regular rate, regular rhythm and S1 normal heart sound GI normal to inspection, nondistended, normoactive bowel sounds and soft to palpation Extremity normal to inspection and no clubbing, cyanosis or edema Assessment & Plan Assessment/Plan (1) Hypertensive urgency: PLAN: Plan Hypertensive urgency. * ongoing, but improved * started on amlodipine 10, lisinopril 20 (caution with CKD), minoxidil. Consider adding hydrazline if continues to be refractory. * PRN with hydralazine * check renal duplex. CKD IV * stable * monitor * follow up with nephrology as outpt. * Renal US on 02/16/24 showed small right renal cyst and non-obstructive right renal calculus. Hypokalemia * replace * Mag low at 1.5, replace Chronic conditions: * Obesity Class II * anemia: stable VTE prophylaxis with subcu heparin. Charges/Coding Visit Charges Inpatient E&M: 83579 Subs Hosp L2
--- NOTE | 2024-04-09 08:36 | RDU_ITS ---
Reason For Study: HTN Right Renal Artery Left Renal Artery Right renal artery mid 89.1/16.7 Left renal artery ostium 61.5/17.2 PSV/EDV. PSV/EDV. Right renal artery distal 71.5/18.9 Left renal artery proximal PSV/EDV PSV/EDV. 85.4/23.5 . Unable to visualize RRA FAYE and Left renal artery mid 85.4/14.0 Prox. PSV/EDV . Unable to calculate RAR due to Left renal artery distal 78.2/21.2 elevated AO velocities. PSV/EDV. Right Renal Parenchyma Unable to calculate RAR due to Upper Pole Medula 40.0/6.0 PSV/EDV. elevated AO velocities. Right upper pole medulla EDR 0.10 . Left Renal Parenchyma Right upper pole medulla R.I. Left upper pole medulla 18.8/5.6 0.85 . PSV/EDV . Upper Timothy Cortx 27.4/7.1 PSV/EDV. Left upper pole medulla EDR 0.30 . Right upper pole cortex EDR 0.30 . Left upper pole medulla R.I. 0.70 . Right upper pole cortex R.I. 0.74 . UP Cortex 20.2/7.3 PSV/EDV. Right lower Pole medulla 35.7/5.4 Left upper pole cortex EDR 0.40 . PSV/EDV . Left upper pole cortex R.I. 0.64 . Right lower pole medulla EDR 0.20 . Left lower Pole medulla 15.5/5.1 Right lower pole medulla R.I. PSV/EDV . 0.85 . Left lower pole medulla EDR 0.30 . Lower Pole Cortex 19.7/5.4 PSV/EDV. Left lower pole medulla R.I. 0.67 . Right lower pole cortex EDR 0.30 . Lower Pole Cortx 18.4/4.2 PSV/EDV. Right lower pole cortex R.I. 0.72 . Left lower pole cortex EDR 0.20 . Right Renal Hilar Left lower pole cortex R.I. 0.77 . Right Hilar avg 63.6/12.0 PSV/EDV. Left Renal Hilar Right hilar acceleration time 30 LT Hilar avg 73.5/21.2 PSV/EDV . m/sec. Left hilar acceleration time 50 Right Renal Dimensions m/sec. Right kidney size 9.50 cm . Left Renal Dimensions Right cortical dimension 1.0 cm . Left kidney size 9.5 cm . Left cortical dimension 1.52 cm . Aorta Proximal abdominal aorta 2.50 x 2.53 cm . Proximal abdominal aorta peak systolic velocity is 142.5 cm/sec . Distal abdominal aorta 1.94 x 1.78 cm . Distal abdominal aorta peak systolic velocity is 146.8 cm/sec . Procedures Renal Artery Duplex with B-Mod Pulsed Wave and Color Doppler. Exam is of poor technical quality due to body habitus, patient positioning and bowel gas. Limited Views Obtained. VL/Renal Artery Duplex Ultrasound Interpretation Summary Right renal artery patent with normal velocities and no evidence of stenosis. Left renal artery patent with normal velocities and no evidence of stenosis. Right renal vein patent. Left renal vein patent. Right kidney normal in size. Left kidney normal in size. Ordering Physician: Junior Georges Referring Physician: Elena Mims Performed By: Spencer Monroe, RVT
[2024-04-09] MEDS: Lisinopril 40 MG Tablet PO (10:03)
[2024-04-09] MEDS: Pentoxifylline 400 MG Tablet PO (10:04)
[2024-04-09] MEDS: amLODIPine 10 MG Tablet PO (10:04)
[2024-04-09] MEDS: Potassium Chloride 10mEq/100mL 10 MEQ/100 ML IV.SOLN. 100 MEQ IV BOLUS ×4 (10:13→14:22)
[2024-04-09] MEDS: Nystatin Powder 15gm Bottle 1 APPLIC TOPICAL ×2 (10:14→21:11)
--- NOTE | 2024-04-09 10:52 | WOUNDNOTE ---
wound photo: left lower leg
--- NOTE | 2024-04-09 10:52 | WOUNDNOTE ---
wound photo: right lower leg
--- NOTE | 2024-04-09 11:40 | CASEMGMT ---
DEBRA GOLD Face to Face with patient for initial transition planning/care coordination assessment. RN CM introduced self and role at [facility]. Patient lying in bed, alert and oriented. Patient willing to participate in assessment and is able to answer all questions appropriately. Care providers, pharmacy, and demographics verified. PCP: Felicita Specialists: Helen, electrical technology instructor; Friend, GI; Jonathan, Crap Shooter Preferred Pharmacy: [facility] Insurance: [facility] Prescription Benefit: yes Living Will/HPOA: yes, niece Letha Seth LNOK: niece Living Arrangements: Patient lives alone in a first floor apartment with 1 step to enter. Patient is independent at home. Transportation: self, niece DME/HHC: Patient raised toilet, cane, walker, rollator, medical alert, and glucometer at home. Patient is currently active with [facility]. No previous SNF. Patient wishes to discharge home with resumption of [facility]. Patient states she has no further needs or concerns at this time. CM to follow for discharge planning needs that may arise. Disposition Plan: Patient to discharge home with resumption of HHC, family support, and follow-up plans in place. Isha HOOVER, RN, CM
[2024-04-09] MEDS: Pantoprazole Sodium 40 MG Tablet PO ×2 (11:43→21:10)
[2024-04-09] MEDS: Metoprolol(XL)Succ 100 MG Tablet PO (11:43)
[2024-04-09] MEDS: LINAGLIPTIN 5 MG TABLET PO (11:43)
[2024-04-09] MEDS: Minoxidil 2.5 MG Tablet PO (11:44)
[2024-04-09] MEDS: Furosemide 40 MG Tablet PO (11:44)
[2024-04-09 11:56] LABS: Bedside Glucose 131 mg/dL (74-106)
[2024-04-09] MEDS: Magnesium Sulfate 2 GM in Dextrose 5%-Water (100mL Bag) 100 ML IV (12:02)
[2024-04-09 16:14] LABS: Bedside Glucose 145 mg/dL (74-106)
[2024-04-09] MEDS: Potassium Chloride Oral Tablet 20 MEQ 40 MEQ PO (16:21)
[2024-04-09] MEDS: Citalopram 20 MG Tablet PO (21:10)
[2024-04-09] MEDS: Atorvastatin Calcium 80 MG Tablet PO (21:10)
[2024-04-09] MEDS: Insulin Glargine-YFGN 100 UNIT/ML Pen 10 UNIT SC (21:14)
[2024-04-09] MEDS: Insulin Lispro 100 UNIT/ML INSULN.PEN SC (21:23)
[2024-04-09 23:01] LABS: Bedside Glucose 167 mg/dL (74-106)
[2024-04-10 04:01] VITALS: BP 174/64; PULSE 56; RESP 16; TEMP 36.6; O2SAT 95
[2024-04-10 06:25] LABS: Absolute Lymphocyte Count 0.88 X10^3/uL (0.83-4.51); Basophil# 0.06 X10^3/uL; Basophil% 0.7 % (0-1); Eosinophil# 0.26 X10^3/uL; Eosinophils% 3.2 % (0-5); Hematocrit 28.2 % (37-47); Hemoglobin 8.5 g/dL (12.0-15.0); Lymphocyte # 0.88 X10^3/ul (0.83-4.51); Lymphocyte % 10.7 % (19-41); Mean Corp Hgb Conc 30.1 g/dL (32-36); Mean Corpuscular Hgb 25.8 pg (27.0-32.0); Mean Corpuscular Volume 85.7 fL (81-99); Mean Platelet Vol. 10.8 fl (6.2-12.0); Monocyte# 1.02 X10^3/uL; Monocyte% 12.4 % (0-10); NRBC Flagged by Analyzer 0 % (0-5); Neutrophil # 5.95 X10^3/uL (2.7-7.7); Neutrophil % 72.6 % (47-70); Platelet Count 257 K/mm3 (150-450); RBC Distribution Width CV 15.9 % (11.6-14.6); Red Blood Count 3.29 M/mm3 (4.2-5.4); White Blood Count 8.2 K/mm3 (4.4-11.0)
[2024-04-10] MEDS: Heparin Injection (Vial) 5,000 UNIT/ML VIAL 5000 UNIT SC ×3 (06:31→21:15)
[2024-04-10] MEDS: Sucralfate 1 GM Tablet PO ×3 (06:31→15:45)
[2024-04-10 06:44] LABS: Anion Gap 6 (5-15); BUN 25 mg/dL (7-18); BUN/Creat Ratio 10.9 RATIO (10-20); Chloride 108 mmol/L (98-107); EST Glomerular Filtration Rate 22 mL/min (>60); Est Glom Filt Rate - Afr Amer 26 mL/min (>60); Estimated Creatinine Clearance 22.31 ml/min; Glucose 81 mg/dL (74-106); Potassium 2.4 mmol/L (3.5-5.1); Sodium Level 142 mmol/L (136-145)
[2024-04-10 07:08] LABS: Bedside Glucose 83 mg/dL (74-106)
[2024-04-10 07:08] LABS: Bedside Glucose 66 mg/dL (74-106)
--- NOTE | 2024-04-10 08:22 | PN.HOSP_ITS ---
Reason for Visit Reason for Visit: Diagnoses Hypertensive urgency (04/08/24) Subjective Subjective Not sure she wants to stay because she has a podiatry appointment with a Dr. Butler in [place]. She does not know his number to cancel as it is changed. I asked her she can just check the Internet. She says she does not have a smart phone nor even a computer and so has no Internet access. So I went online to find his number and found it very easily presented to her and she said it is different now and out this number. So went back and reluctance and did not see any number nor indicating and address [address]. Erythema found was on [address]. Objective Data Objective Data Vital Signs: Vital Signs Temp Pulse Resp BP Pulse Ox O2 Del Method 36.6 C 56 L 16 174/64 H 95 Room Air 04/10/24 04:01 04/10/24 04:01 04/10/24 04:01 04/10/24 04:01 04/10/24 04:01 04/10/24 04:01 Oxygen Delivery Method Room Air Weight: 97.3 kg Body Mass Index (BMI) 39.2 Intake & Output: Intake and Output for Last 24 Hours 04/08/24 04/09/24 04/10/24 23:59 23:59 23:59 Intake Total 1364 / 1364 Output Total 1250 / 1250 250 / 250 Balance 114 / 114 -250 / -250 Lab / Micro Data 04/10/24 05:52 04/10/24 05:52 Labs: Laboratory Results - last 24 hr 04/09/24 11:38: POC Glucose 131 H 04/09/24 15:55: POC Glucose 145 H 04/09/24 21:13: POC Glucose 167 H 04/10/24 05:52: WBC 8.2, RBC 3.29 L, Hgb 8.5 L, Hct 28.2 L, MCV 85.7, MCH 25.8 L , MCHC 30.1 L, RDW Std Deviation 50.0 H, RDW Coeff of Juan Diego 15.9 H, Plt Count 257, MPV 10.8, Immature Gran % (Auto) 0.400, Neut % (Auto) 72.6 H, Lymph % (Auto) 10.7 L, Cross % (Auto) 12.4 H, Eos % (Auto) 3.2, Baso % (Auto) 0.7, Absolute Neuts (auto) 6.0, Absolute Lymphs (auto) 0.88, Nucleated RBC % 0, Sodium 142, P otassium 2.4 L*, Chloride 108 H, Carbon Dioxide 28.0, Anion Gap 6, BUN 25 H, C reatinine 2.30 H, Estim Creat Clear Calc 22.31, Est GFR (MDRD) Af Amer 26 L, Est GFR (MDRD) Non-Af 22 L, BUN/Creatinine Ratio 10.9, Glucose 81, Calcium 9.0 04/10/24 06:30: POC Glucose 66 L 04/10/24 06:50: POC Glucose 83 Physical Exam Const alert and no apparent distress HEENT head/scalp atraumatic and moist oral mucous membranes Resp normal respiratory effort, no retractions, no use of accessory muscles and clear to auscultation bilaterally Cardio regular rate, regular rhythm, S1 normal heart sound and S2 normal heart sound GI normal to inspection, nondistended, normoactive bowel sounds, soft to palpation, non-tender and non-distended Extremity normal to inspection Assessment & Plan Assessment/Plan (1) Hypertensive urgency: PLAN: Plan Hypertensive urgency. * ongoing, but improved * started on amlodipine 10, lisinopril 20 (caution with CKD), minoxidil. Consider adding hydrazline if continues to be refractory. * PRN with hydralazine * check renal duplex. CKD IV * stable * monitor * follow up with nephrology as outpt. * Renal US on 02/16/24 showed small right renal cyst and non-obstructive right renal calculus. Hypokalemia * ongoing. * Mag low at 1.5, replace Chronic conditions: * Obesity Class II * anemia: stable VTE prophylaxis with subcu heparin. I recommend the patient stay here because your potassium has been profoundly low. She is unsure because she has his podiatry appointment that she had previously canceled and is unable to change it because the numbers she has for his office is at home and does not have here. I explained to her that given her potassium, she is at risk for arrhythmias and potentially even . Apparently the number that is all over the Internet is incorrect as well. Charges/Coding Visit Charges Inpatient E&M: 68873 Subs Hosp L2
[2024-04-10 10:39] VITALS: BP 150/54; PULSE 63; RESP 16; TEMP 36.8; O2SAT 94
[2024-04-10] MEDS: LINAGLIPTIN 5 MG TABLET PO (10:42)
[2024-04-10] MEDS: Pentoxifylline 400 MG Tablet PO (10:42)
[2024-04-10] MEDS: Furosemide 40 MG Tablet PO (10:42)
[2024-04-10] MEDS: Lisinopril 40 MG Tablet PO (10:42)
[2024-04-10] MEDS: Pantoprazole Sodium 40 MG Tablet PO ×2 (10:42→21:14)
[2024-04-10] MEDS: amLODIPine 10 MG Tablet PO (10:42)
[2024-04-10] MEDS: Minoxidil 2.5 MG Tablet PO (10:42)
[2024-04-10] MEDS: Nystatin Powder 15gm Bottle 1 APPLIC TOPICAL ×2 (10:43→21:15)
[2024-04-10] MEDS: Potassium Chloride 10mEq/100mL 10 MEQ/100 ML IV.SOLN. 100 MEQ IV BOLUS ×4 (11:03→15:44)
[2024-04-10] MEDS: Insulin Lispro 100 UNIT/ML INSULN.PEN SC ×2 (11:06→17:17)
[2024-04-10 12:07] LABS: Bedside Glucose 198 mg/dL (74-106)
[2024-04-10 13:01] VITALS: BP 158/60; PULSE 64; RESP 16; TEMP 36.5; O2SAT 94
[2024-04-10 17:48] LABS: Bedside Glucose 171 mg/dL (74-106)
[2024-04-10 17:54] VITALS: BP 136/57; PULSE 65; RESP 16; TEMP 36.6; O2SAT 95
[2024-04-10] MEDS: Potassium Chloride Oral Tablet 20 MEQ 40 MEQ PO (17:55)
[2024-04-10 18:03] LABS: Anion Gap 5 (5-15); BUN 25 mg/dL (7-18); Calcium,Total 8.8 mg/dL (8.5-10.1); Chloride 106 mmol/L (98-107); Creatinine, Serum 2.51 mg/dL (0.55-1.02); EST Glomerular Filtration Rate 20 mL/min (>60); Est Glom Filt Rate - Afr Amer 24 mL/min (>60); Estimated Creatinine Clearance 20.44 ml/min; Glucose 185 mg/dL (74-106); Potassium 3.1 mmol/L (3.5-5.1); Sodium Level 142 mmol/L (136-145)
[2024-04-10 21:11] VITALS: BP 147/56; PULSE 74; RESP 16; TEMP 36.7; O2SAT 96
[2024-04-10] MEDS: Citalopram 20 MG Tablet PO (21:14)
[2024-04-10] MEDS: Atorvastatin Calcium 80 MG Tablet PO (21:14)
[2024-04-10] MEDS: Insulin Glargine-YFGN 100 UNIT/ML Pen 10 UNIT SC (21:17)
[2024-04-10 22:16] LABS: Bedside Glucose 174 mg/dL (74-106)
[2024-04-11 03:22] VITALS: BP 151/54; PULSE 66; RESP 16; TEMP 36.7; O2SAT 98
[2024-04-11 06:41] LABS: Absolute Lymphocyte Count 0.87 X10^3/uL (0.83-4.51); Absolute Neutrophil Count 6.3 X10^3/uL (2.0-7.7); Basophil# 0.04 X10^3/uL; Basophil% 0.4 % (0-1); Eosinophil# 0.23 X10^3/uL; Eosinophils% 2.6 % (0-5); Hematocrit 26.6 % (37-47); Hemoglobin 7.9 g/dL (12.0-15.0); Lymphocyte # 0.87 X10^3/ul (0.83-4.51); Lymphocyte % 9.8 % (19-41); Mean Corp Hgb Conc 29.7 g/dL (32-36); Mean Corpuscular Hgb 25.6 pg (27.0-32.0); Mean Corpuscular Volume 86.4 fL (81-99); Mean Platelet Vol. 10.9 fl (6.2-12.0); Monocyte# 1.41 X10^3/uL; Monocyte% 15.8 % (0-10); NRBC Flagged by Analyzer 0 % (0-5); Neutrophil # 6.33 X10^3/uL (2.7-7.7); Neutrophil % 71.1 % (47-70); Platelet Count 246 K/mm3 (150-450); RBC Distribution Width CV 16.1 % (11.6-14.6); RBC Distribution Width SD 50.6 fl (35.1-43.9); Red Blood Count 3.08 M/mm3 (4.2-5.4); White Blood Count 8.9 K/mm3 (4.4-11.0)
[2024-04-11] MEDS: Sucralfate 1 GM Tablet PO ×3 (06:48→16:09)
[2024-04-11] MEDS: Heparin Injection (Vial) 5,000 UNIT/ML VIAL 5000 UNIT SC ×3 (06:48→21:10)
[2024-04-11 07:16] LABS: Bedside Glucose 103 mg/dL (74-106)
[2024-04-11 07:24] LABS: Anion Gap 10 (5-15); BUN 28 mg/dL (7-18); BUN/Creat Ratio 12.6 RATIO (10-20); Calcium,Total 8.6 mg/dL (8.5-10.1); Chloride 108 mmol/L (98-107); Creatinine, Serum 2.22 mg/dL (0.55-1.02); EST Glomerular Filtration Rate 23 mL/min (>60); Est Glom Filt Rate - Afr Amer 28 mL/min (>60); Estimated Creatinine Clearance 23.11 ml/min; Glucose 107 mg/dL (74-106); Magnesium 1.8 mg/dL (1.6-2.6); Potassium 2.7 mmol/L (3.5-5.1); Sodium Level 145 mmol/L (136-145)
[2024-04-11 09:20] VITALS: BP 144/60; PULSE 74; RESP 18; TEMP 36.4; O2SAT 99
[2024-04-11] MEDS: Magnesium Sulfate 2 GM in Dextrose 5%-Water (100mL Bag) 100 ML IV (09:49)
[2024-04-11 10:04] VITALS: BP 144/60; PULSE 74; RESP 18; TEMP 36.4; O2SAT 99
[2024-04-11 10:06] VITALS: BP 144/60; PULSE 74
[2024-04-11] MEDS: LINAGLIPTIN 5 MG TABLET PO (10:06)
[2024-04-11] MEDS: Potassium Chloride Oral Tablet 20 MEQ 40 MEQ PO ×2 (10:06→17:21)
[2024-04-11] MEDS: Pantoprazole Sodium 40 MG Tablet PO ×2 (10:06→21:12)
[2024-04-11] MEDS: Metoprolol(XL)Succ 50 MG Tablet PO (10:06)
[2024-04-11] MEDS: Furosemide 40 MG Tablet PO (10:06)
[2024-04-11] MEDS: Lisinopril 40 MG Tablet PO (10:06)
[2024-04-11] MEDS: amLODIPine 10 MG Tablet PO (10:06)
[2024-04-11] MEDS: Nystatin Powder 15gm Bottle 1 APPLIC TOPICAL ×2 (10:07→21:11)
[2024-04-11] MEDS: Minoxidil 2.5 MG Tablet PO (10:07)
[2024-04-11] MEDS: Pentoxifylline 400 MG Tablet PO (10:07)
--- NOTE | 2024-04-11 12:11 | PN.HOSP_ITS ---
Reason for Visit Reason for Visit: Diagnoses Hypertensive urgency (04/08/24) Subjective Subjective Feels ok. No issues overnight. Objective Data Objective Data Vital Signs: Vital Signs Temp Pulse Resp BP Pulse Ox O2 Del Method 36.4 C L 74 18 144/60 H 99 Room Air 04/11/24 10:04 04/11/24 10:04/11/24 10:04 04/11/24 10:04/11/24 10:04 04/11/24 10:04 Oxygen Delivery Method Room Air Weight: 97.3 kg Body Mass Index (BMI) 39.2 Intake & Output: Intake and Output for Last 24 Hours 04/09/24 04/10/24 04/11/24 23:59 23:59 23:59 Intake Total 1364 / 1364 1440 / 1440 Output Total 1250 / 1250 1150 / 1150 1100 / 1100 Balance 114 / 114 290 / 290 -1100 / -1100 Lab / Micro Data 04/11/24 05:53 04/11/24 05:53 Labs: Laboratory Results - last 24 hr 04/10/24 17:14: POC Glucose 171 H 04/10/24 17:20: Sodium 142, Potassium 3.1 L, Chloride 106, Carbon Dioxide 31.0, Anion Gap 5, BUN 25 H, Creatinine 2.51 H, Estim Creat Clear Calc 20.44, Est GFR (MDRD) Af Amer 24 L, Est GFR (MDRD) Non-Af 20 L, BUN/Creatinine Ratio 10.0, G lucose 185 H, Calcium 8.8 04/10/24 21:16: POC Glucose 174 H 04/11/24 05:53: WBC 8.9, RBC 3.08 L, Hgb 7.9 L, Hct 26.6 L, MCV 86.4, MCH 25.6 L , MCHC 29.7 L, RDW Std Deviation 50.6 H, RDW Coeff of Juan Diego 16.1 H, Plt Count 246, MPV 10.9, Immature Gran % (Auto) 0.300, Neut % (Auto) 71.1 H, Lymph % (Auto) 9.8 L, [place] % (Auto) 15.8 H, Eos % (Auto) 2.6, Baso % (Auto) 0.4, Absolute Neuts (auto) 6.3, Absolute Lymphs (auto) 0.87, Nucleated RBC % 0, Sodium 145, P otassium 2.7 L*, Chloride 108 H, Carbon Dioxide 27.0, Anion Gap 10, BUN 28 H, C reatinine 2.22 H, Estim Creat Clear Calc 23.11, Est GFR (MDRD) Af Amer 28 L, Est GFR (MDRD) Non-Af 23 L, BUN/Creatinine Ratio 12.6, Glucose 107 H, Calcium 8.6, Magnesium 1.8 04/11/24 06:49: POC Glucose 103 Physical Exam Const alert and no apparent distress Constitutional Narrative: up in chair. afebrile. HEENT head/scalp atraumatic Resp normal respiratory effort, no retractions, no use of accessory muscles and clear to auscultation bilaterally Cardio regular rate, regular rhythm, S1 normal heart sound and S2 normal heart sound GI normal to inspection, nondistended, normoactive bowel sounds, soft to palpation, non-tender and non-distended Extremity normal to inspection and full ROM Neuro Sensorium / Orientation: awake and alert Psych affect normal Assessment & Plan Assessment/Plan (1) Hypertensive urgency: PLAN: Plan Hypertensive urgency. * ongoing, but improved * started on amlodipine 10, lisinopril 20 (caution with CKD), minoxidil. Consider adding hydrazline if continues to be refractory. * PRN with hydralazine * check renal duplex. CKD IV * stable * monitor * follow up with nephrology as outpt. * Renal US on 02/16/24 showed small right renal cyst and non-obstructive right renal calculus. Hypokalemia * improved, but still ongoing. * continue to replace. Mag better at 1.8. Replace. Recheck. Chronic conditions: * Obesity Class II * anemia: stable VTE prophylaxis with subcu heparin. Charges/Coding Visit Charges Inpatient E&M: 35622 Subs Hosp L2
[2024-04-11] MEDS: Potassium Chloride 10mEq/100mL 10 MEQ/100 ML IV.SOLN. 100 MEQ IV BOLUS ×6 (12:12→18:39)
[2024-04-11 12:14] LABS: Bedside Glucose 179 mg/dL (74-106)
[2024-04-11] MEDS: Insulin Lispro 100 UNIT/ML INSULN.PEN SC ×3 (12:15→21:10)
[2024-04-11 14:40] LABS: Anion Gap 7 (5-15); BUN 25 mg/dL (7-18); BUN/Creat Ratio 10.9 RATIO (10-20); Calcium,Total 8.9 mg/dL (8.5-10.1); Chloride 106 mmol/L (98-107); EST Glomerular Filtration Rate 22 mL/min (>60); Est Glom Filt Rate - Afr Amer 26 mL/min (>60); Estimated Creatinine Clearance 22.31 ml/min; Glucose 205 mg/dL (74-106); Potassium 3.2 mmol/L (3.5-5.1); Sodium Level 142 mmol/L (136-145)
--- NOTE | 2024-04-11 15:49 | CASEMGMT ---
Social Work POA for healthcare, with living will provision initialed is scanned into summary tab of alberto alcaraz is listed as healthcare POA. ELDA Champagne
[2024-04-11 17:35] VITALS: BP 144/60; PULSE 74; RESP 18; TEMP 36.4; O2SAT 99
[2024-04-11 17:48] LABS: Bedside Glucose 152 mg/dL (74-106)
[2024-04-11] MEDS: Citalopram 20 MG Tablet PO (21:10)
[2024-04-11] MEDS: Insulin Glargine-YFGN 100 UNIT/ML Pen 10 UNIT SC (21:11)
[2024-04-11] MEDS: Atorvastatin Calcium 80 MG Tablet PO (21:11)
[2024-04-11 21:15] VITALS: BP 133/55; PULSE 72; RESP 18; TEMP 35.8; O2SAT 97
[2024-04-11 22:49] LABS: Bedside Glucose 177 mg/dL (74-106)
[2024-04-12 03:30] VITALS: BP 150/56; PULSE 73; RESP 18; TEMP 36; O2SAT 96
[2024-04-12] MEDS: Heparin Injection (Vial) 5,000 UNIT/ML VIAL 5000 UNIT SC (06:32)
[2024-04-12] MEDS: Sucralfate 1 GM Tablet PO ×2 (06:32→10:23)
[2024-04-12 07:07] LABS: Bedside Glucose 95 mg/dL (74-106)
[2024-04-12 07:29] LABS: Anion Gap 7 (5-15); BUN 23 mg/dL (7-18); BUN/Creat Ratio 10.6 RATIO (10-20); Calcium,Total 9.1 mg/dL (8.5-10.1); Chloride 105 mmol/L (98-107); Creatinine, Serum 2.16 mg/dL (0.55-1.02); EST Glomerular Filtration Rate 24 mL/min (>60); Est Glom Filt Rate - Afr Amer 28 mL/min (>60); Estimated Creatinine Clearance 23.75 ml/min; Glucose 119 mg/dL (74-106); Potassium 3.4 mmol/L (3.5-5.1); Sodium Level 139 mmol/L (136-145)
--- NOTE | 2024-04-12 08:17 | PCM.PN.HOSP ---
Reason for Visit Reason for Visit: Diagnoses Hypertensive urgency (04/08/24) Subjective Subjective Feels well. No new complaints. Still with LE edema. Objective Data Objective Data Vital Signs: Vital Signs Temp Pulse Resp BP Pulse Ox O2 Del Method 36.0 C L 73 18 150/56 H 96 Room Air 04/12/24 03:30 04/12/24 03:30 04/12/24 03:30 04/12/24 03:30 04/12/24 03:30 04/12/24 03:58 Oxygen Delivery Method Room Air Weight: 97.3 kg Body Mass Index (BMI) 39.2 Intake & Output: Intake and Output for Last 24 Hours 04/10/24 04/11/24 04/12/24 23:59 23:59 23:59 Intake Total 1440 / 1440 1184 / 1484 500 / 500 Output Total 1150 / 1150 1400 / 1400 Balance 290 / 290 -216 / 84 500 / 500 Lab / Micro Data 04/11/24 05:53 04/12/24 06:57 Labs: Laboratory Results - last 24 hr 04/11/24 11:56: POC Glucose 179 H 04/11/24 14:10: Sodium 142, Potassium 3.2 L, Chloride 106, Carbon Dioxide 29.0, Anion Gap 7, BUN 25 H, Creatinine 2.30 H, Estim Creat Clear Calc 22.31, Est GFR (MDRD) Af Amer 26 L, Est GFR (MDRD) Non-Af 22 L, BUN/Creatinine Ratio 10.9, Glucose 205 H, Calcium 8.9 04/11/24 17:27: POC Glucose 152 H 04/11/24 21:09: POC Glucose 177 H 04/12/24 06:29: POC Glucose 95 04/12/24 06:57: Sodium 139, Potassium 3.4 L, Chloride 105, Carbon Dioxide 27.0, Anion Gap 7, BUN 23 H, Creatinine 2.16 H, Estim Creat Clear Calc 23.75, Est GFR (MDRD) Af Amer 28 L, Est GFR (MDRD) Non-Af 24 L, BUN/Creatinine Ratio 10.6, Glucose 119 H, Calcium 9.1 Physical Exam Const alert and no apparent distress HEENT head/scalp atraumatic Resp normal respiratory effort, no retractions and no use of accessory muscles Extremity Extremity Narrative: bilateral LE edema with lymphedema wraps. Assessment & Plan Assessment/Plan (1) Hypertensive urgency: PLAN: Plan Hypertensive urgency. ongoing, but improved started on amlodipine 10, lisinopril 40 (caution with CKD), furosemide, metoprolol succinate. Had been on minoxidil here, but will hold given the potential for hirsutism, though cannot rule it out being used later. Renal duplex negative. check renal duplex. CKD IV stable monitor follow up with nephrology as outpt. Renal US on 02/16/24 showed small right renal cyst and non-obstructive right renal calculus. Hypokalemia improved, but still ongoing. Profound difficulty with replacement may be due chronically low levels. ongoing, but improved. Continue replacement. advised pt follow up with her PCP to have labs next week. Chronic conditions: Obesity Class II anemia: stable VTE prophylaxis with subcu heparin.
[2024-04-12 08:21] VITALS: BP 150/56; PULSE 73; RESP 18; TEMP 36; O2SAT 96
[2024-04-12 09:30] VITALS: BP 130/50; PULSE 68; RESP 18; TEMP 36.6; O2SAT 95
--- NOTE | 2024-04-12 10:18 | DS.PCM_ITS ---
Providers Date of Admission: 04/08/24 Primary Care Physician: Dr. Elena Mims DO Reason For Visit: HYPERTENSIVE URGENCY Diagnosis Discharge Diagnosis (1) Hypertensive urgency: Status: Acute Code(s): I16.0 - Hypertensive urgency Plan Hypertensive urgency. * ongoing, but improved * started on amlodipine 10, lisinopril 40 (caution with CKD), furosemide, metoprolol succinate. Had been on minoxidil here, but will hold given the potential for hirsutism, though cannot rule it out being used later. * Renal duplex negative. * check renal duplex. CKD IV * stable * monitor * follow up with nephrology as outpt. * Renal US on 02/16/24 showed small right renal cyst and non-obstructive right renal calculus. Hypokalemia * improved, but still ongoing. Profound difficulty with replacement may be due chronically low levels. * ongoing, but improved. Continue replacement. * advised pt follow up with her PCP to have labs next week. Chronic conditions: * Obesity Class II * anemia: stable VTE prophylaxis with subcu heparin. Medications at Discharge Home Medications folic acid 1 mg tablet 1 mg PO DAILY@0800 SUPPLEMENT 01/21/17 rosuvastatin 40 mg tablet (Crestor) 40 mg PO QHS CHOLESTEROL 01/21/17 alendronate 70 mg tablet 70 mg PO FAUSTIN BONES 03/05/19 calcium carbonate 600 mg-vitamin D3 20 mcg (800 unit) tablet (Caltrate with Vitamin D3) 1 tab PO BID SUPPLEMENT 03/05/19 cholecalciferol (vitamin D3) 125 mcg (5,000 unit) capsule 8,000 unit PO DAILY SUPPLEMENT 03/05/19 citalopram 20 mg tablet 20 mg PO QHS mental health 01/22/22 nystatin 100,000 unit/gram topical powder (Riamyc) 1 applic topical BID #60 grams 01/25/22 acetaminophen 325 mg tablet (Tylenol) 650 mg PO Q6H PRN Mild Pain (1-3)/Temp > 100.7 F 02/15/24 insulin detemir U-100 100 unit/mL (3 mL) subcutaneous pen (Levemir FlexPen) 10 unit subcut QHS 02/15/24 pentoxifylline 400 mg tablet,extended release 400 mg PO DAILY 02/15/24 vitamin E 268 mg (400 unit) capsule 268 mg PO DAILY 02/15/24 pantoprazole 40 mg tablet,delayed release 40 mg PO BID #60 tabs 02/23/24 sucralfate 1 gram tablet 1 g PO TID #135 tabs 02/23/24 budesonide 3 mg capsule,delayed,extended release 9 mg (3 x 3 mg) PO DAILY #90 ea 02/28/24 sitagliptin phosphate 50 mg tablet (Januvia) 50 mg PO DAILY BLOOD SUGAR 04/08/24 amlodipine 10 mg tablet 10 mg PO DAILY #30 tabs 04/12/24 furosemide 40 mg tablet 20 mg (1/2 x 40 mg) PO DAILY #30 tabs 04/12/24 lisinopril 40 mg tablet 40 mg PO DAILY #30 tabs 04/12/24 metoprolol succinate 50 mg tablet,extended release 24 hr (Toprol XL) 50 mg PO DAILY HEART #30 tabs 04/12/24 potassium chloride 20 mEq tablet,extended release 20 meq PO DAILY #30 tabs 04/12/24 Hospital Course Operations None Procedures None Summary of Care Provided Minutes Spent on Discharge: 36 Hospital Course: Patient presents with extremely poorly controlled hypertension. At home, patient was only taking 10 mg of lisinopril, metoprolol succinate and had recently started on furosemide. Does note the patient's potassium is very low in the twos. Patient was started on antihypertensives with amlodipine 10 mg, lisinopril was increased from 10 to 40 mg daily, and patient was started on minoxidil 2.5 mg daily. Blood pressure overall has improved, okay to continue much of her regimen that we have discontinued and minoxidil for the time being given the potential for hirsutism. Caution with the lisinopril and I am also can have the patient continue with Lasix as she does have lower extremity edema. Patient was started on amlodipine here for lower extremity edema that she has is not due to that as she was not on that prior. Patient will need to be on potassium replacements. Patient did require numerous doses of IV as well as oral potassium for her potassium to slowly improve. Likely she has poor potassium stores chronically which was likable revealing while she was here in the hospital. Patient will continue with potassium replacement and have her labs checked next week to follow-up on her potassium as well as her kidney function. Weight / BMI Weight Weight: 97.3 kg Body Mass Index (BMI) 39.2 ABG / Lab / Microbiology Data 04/11/24 05:53 04/12/24 06:57 Laboratory: Laboratory Results - last 24 hr 04/11/24 11:56: POC Glucose 179 H 04/11/24 14:10: Sodium 142, Potassium 3.2 L, Chloride 106, Carbon Dioxide 29.0, Anion Gap 7, BUN 25 H, Creatinine 2.30 H, Estim Creat Clear Calc 22.31, Est GFR (MDRD) Af Amer 26 L, Est GFR (MDRD) Non-Af 22 L, BUN/Creatinine Ratio 10.9, G lucose 205 H, Calcium 8.9 04/11/24 17:27: POC Glucose 152 H 04/11/24 21:09: POC Glucose 177 H 04/12/24 06:29: POC Glucose 95 04/12/24 06:57: Sodium 139, Potassium 3.4 L, Chloride 105, Carbon Dioxide 27.0, Anion Gap 7, BUN 23 H, Creatinine 2.16 H, Estim Creat Clear Calc 23.75, Est GFR (MDRD) Af Amer 28 L, Est GFR (MDRD) Non-Af 24 L, BUN/Creatinine Ratio 10.6, G lucose 119 H, Calcium 9.1 D/C Instructions Discharge Diet: 2000 Calorie Control Diet Meaningful Use Info Meaningful Use Meaningful Use Diagnoses (Choose all that apply): None applicable Ischemic Stroke Statin Dosing Therapy Reference: STATIN DOSE THERAPY REFERENCE: * Patients > 75 years receive moderate or high dose statin therapy. * Patients 75 years or YOUNGER should receive HIGH intensity statin dose unless contraindicated. You will be required to document reason for non-treatment if statin daily dose does not meet guidelines. HIGH DOSE STATIN THERAPY DAILY Atorvastatin > than or = to 40 mg Rosuvastatin > than or = to 20 mg Amlodipine + Atorvastatin > than or = to 2.5/40 mg Ezetimibe + Simvastatin 10/80 mg Simvastatin 80mg Discharge Plan Admission Admit Date/Time: 04/08/24 17:01 Primary Reason for Your Visit: Hypertension. Hypokalemia Attending Provider: Junior Georges Primary Care Provider: Elena Mims Consulting Providers: Mike Major Instructions Additional Instructions / Restrictions: Ibuprofen blood pressure was extremely high when you were here. We plan adjustments to your medications which will be delineated on your medication list. Also your potassium is very low which likely is indicative of chronically low potassium that just took several days to get back to near normal levels. Hopefully with continue to take potassium supplementation a potassium levels will continue to improve. I do want you to see your primary care doctor to monitor your kidney function as well as your potassium. You do have chronic kidney disease, which is not new but do need to be cautious with some of the medications that you are on this dose could adversely affect your kidneys. Additionally, I would recommend that you follow-up with nephrology just to keep close tabs on your kidney function. Discharge Orders/Prescriptions Prescriptions: New furosemide 40 mg Tablet 20 mg PO DAILY Qty: 30 0RF amlodipine 10 mg Tablet 10 mg PO DAILY Qty: 30 0RF lisinopril 40 mg Tablet 40 mg PO DAILY Qty: 30 0RF Continued folic acid 1 MG tablet 1 mg PO DAILY@0800 rosuvastatin [Crestor] 40 MG tablet 40 mg PO QHS alendronate 70 MG tablet 70 mg PO FAUSTIN Patient Comments: per pt on hold until told to resume cholecalciferol (vitamin D3) 5,000 UNIT capsule 8,000 unit PO DAILY calcium carbonate-vitamin D3 [Caltrate with Vitamin D3] 1 TAB tablet 1 tab PO BID citalopram 20 mg tablet 20 mg PO QHS nystatin [Nyamyc] 100,000 unit/gram Powder 1 applic topical BID Qty: 60 0RF Protocol: *Topical Application Instructions APPLICATION INSTRUCTIONS: UNDER BREASTS, ABD FOLD, GROIN Rx Instructions: place on red areas of groin acetaminophen [Tylenol] 325 MG tablet 650 mg PO Q6H PRN (Reason: Mild Pain (1-3)/Temp > 100.7 F) Levemir FlexPen 100 unit/mL (3 mL) insulin pen 10 unit subcut QHS pentoxifylline 400 mg tablet extended release 400 mg PO DAILY vitamin E 268 mg (400 unit) capsule 268 mg PO DAILY pantoprazole 40 mg Tablet,Delayed Release (Dr/Ec) 40 mg PO BID Qty: 60 1RF sucralfate 1 gram Tablet 1 g PO TID Qty: 135 0RF Januvia 50 mg tablet 50 mg PO DAILY potassium chloride 20 mEq tablet extended release 20 meq PO DAILY Qty: 30 0RF budesonide 3 mg capsule,delayed,extend.release 9 mg PO DAILY Qty: 90 2RF Changed metoprolol succinate [Toprol XL] 50 MG tablet extended release 24 hr 50 mg PO DAILY Qty: 30 0RF Discontinued furosemide 20 mg tablet See Rx Instructions PO .COMPLEX Patient Comments: STARTED FRI 04/05/24, TOOK 04/06/24, SKIPPED 04/07/24, WAS SUPPOSED TO TAKE TODAY 04/08/24, BUT HASNT YET. THEN WAS GOING TO TAKE ON 04/10/24. Rx Instructions: TAKE 1 TABLET BY MOUTH DAILY FOR 2 DAYS, THEN TAKE 1 TABLET EVERY OTHER DAY FOR 2 DOSES. orally; lisinopril 10 mg tablet 10 mg PO BID Referrals / Follow Up: [facility] [Provider Group] - Within 1 Month Elena Mims DO [Primary Care Provider] - Within 2 Weeks Disposition Disposition (needs filled in before D/C Order can be placed): Home, Self Care Charges/Coding Visit Charges Inpatient E&M: 95234 Disch Hosp >30min
[2024-04-12] MEDS: Potassium Chloride Oral Tablet 20 MEQ 40 MEQ PO (10:22)
[2024-04-12 10:23] VITALS: BP 130/50; PULSE 68
[2024-04-12] MEDS: amLODIPine 10 MG Tablet PO (10:23)
[2024-04-12] MEDS: Minoxidil 2.5 MG Tablet PO (10:23)
[2024-04-12] MEDS: LINAGLIPTIN 5 MG TABLET PO (10:23)
[2024-04-12] MEDS: Metoprolol(XL)Succ 50 MG Tablet PO (10:23)
[2024-04-12] MEDS: Lisinopril 40 MG Tablet PO (10:23)
[2024-04-12] MEDS: Pentoxifylline 400 MG Tablet PO (10:23)
[2024-04-12] MEDS: Pantoprazole Sodium 40 MG Tablet PO (10:23)
[2024-04-12] MEDS: Nystatin Powder 15gm Bottle 1 APPLIC TOPICAL (10:24)
[2024-04-12] MEDS: Furosemide 40 MG Tablet PO (10:24)
[2024-04-12 10:46] VITALS: BP 130/50; PULSE 68; RESP 18; TEMP 36.6; O2SAT 95
--- NOTE | 2024-04-12 11:09 | CASEMGMT ---
Patient has order for discharge. DEBRA GOLD called [facility] and updated, resumption of care planned for tomorrow. DEBRA GOLD updated discharge plan. DEBRA GOLD in to updated patient with planned resumption of care with [facility]. Patient denied further needs or concerns. Patient had no further questions.
--- NOTE | 2024-04-12 13:41 | PHA.DC_ITS ---
Pharmacy [facility] Pharmacy Service has performed discharge medication reconciliation and counseling for this patient. The patient's discharge medication list was reviewed for discrepancies and discrepancies were resolved. The patient was counseled on the following discharge medications and changes in medications for homegoing were reviewed. 1. NORVASC 2. LISINOPRIL --> DOSE CHANGE 3. LASIX --> DOSE CHANGE The Reason for Use, instructions for use, and potential side effects were reviewed for all new medications. The patient's questions regarding all of their medications were answered. The patient was able to verbally demonstrate an understanding of their discharge medications. The patient was counselled by Wendy Glover PharmD Candidate Medications at Discharge Home Medications folic acid 1 mg tablet 1 mg PO DAILY@0800 SUPPLEMENT 01/21/17 rosuvastatin 40 mg tablet (Crestor) 40 mg PO QHS CHOLESTEROL 01/21/17 alendronate 70 mg tablet 70 mg PO FAUSTIN BONES 03/05/19 calcium carbonate 600 mg-vitamin D3 20 mcg (800 unit) tablet (Caltrate with Vitamin D3) 1 tab PO BID SUPPLEMENT 03/05/19 cholecalciferol (vitamin D3) 125 mcg (5,000 unit) capsule 8,000 unit PO DAILY SUPPLEMENT 03/05/19 citalopram 20 mg tablet 20 mg PO QHS mental health 01/22/22 nystatin 100,000 unit/gram topical powder (Nyamyc) 1 applic topical BID #60 grams 01/25/22 acetaminophen 325 mg tablet (Tylenol) 650 mg PO Q6H PRN Mild Pain (1-3)/Temp > 100.7 F 02/15/24 insulin detemir U-100 100 unit/mL (3 mL) subcutaneous pen (Levemir FlexPen) 10 unit subcut QHS 02/15/24 pentoxifylline 400 mg tablet,extended release 400 mg PO DAILY 02/15/24 vitamin E 268 mg (400 unit) capsule 268 mg PO DAILY 02/15/24 pantoprazole 40 mg tablet,delayed release 40 mg PO BID #60 tabs 02/23/24 sucralfate 1 gram tablet 1 g PO TID #135 tabs 02/23/24 budesonide 3 mg capsule,delayed,extended release 9 mg (3 x 3 mg) PO DAILY bowels #90 ea 02/28/24 sitagliptin phosphate 50 mg tablet (Januvia) 50 mg PO DAILY BLOOD SUGAR 04/08/24 amlodipine 10 mg tablet 10 mg PO DAILY #30 tabs 04/12/24 furosemide 40 mg tablet 20 mg (1/2 x 40 mg) PO DAILY #30 tabs 04/12/24 lisinopril 40 mg tablet 40 mg PO DAILY #30 tabs 04/12/24 metoprolol succinate 50 mg tablet,extended release 24 hr (Toprol XL) 50 mg PO DAILY HEART #30 tabs 04/12/24 potassium chloride 20 mEq tablet,extended release 20 meq PO DAILY #30 tabs 04/12/24
== END 2024-04-12 11:59 | disposition home or self-care (01) | DRG 305 ==
LOC: ED 16:39 → PCU 16:50
PROVIDERS: Admitting Provider Internal Medicine; Emergency Provider Emergency Medicine; PCP Internal Medicine
DX: I16.0 Hypertensive urgency (principal); N18.4 Chronic kidney disease, stage 4 (severe); D63.1 Anemia in chronic kidney disease; E11.22 Type 2 diabetes mellitus with diabetic chronic kidney disease; E66.01 Morbid (severe) obesity due to excess calories; Z79.4 Long term (current) use of insulin; E87.6 Hypokalemia; Z68.39 Body mass index [BMI] 39.0-39.9, adult; Z79.899 Other long term (current) drug therapy
CPT/HCPCS: 36415; 80048; 80053; 81001; 82962; 83735; 84100; 84484; 85025; 93005; 93975; 97162; 97166; 97530; 97535; 97802; 99285; J7040; A4216

== ENCOUNTER → 2024-04-19 | Outpatient (CLI) | payer MEDICARE, SELFPAY ==
--- NOTE | 2024-04-19 11:40 | RAD_ITS ---
STUDY: X-RAY - LEFT FOOT CLINICAL: Female, 78 years old. Lateral foot pain following injury. TECHNIQUE: 3 view(s) of the foot. COMPARISON: None. FINDINGS: Calcaneal spurs. Normal visualized subtalar, talonavicular, calcaneocuboid, tarsal and tarsometatarsal articulations. Nondisplaced transverse fracture at the base of the fifth metatarsal. There is degenerative arthrosis of the metatarsophalangeal joint of the hallux . Normal tibial and fibular sesamoid bones. Normal interphalangeal joint of the great toe. Normal phalanges of the great toe. Normal second through fifth metatarsophalangeal joints. Normal interphalangeal joints and phalanges of the lesser toes. Lateral soft tissue swelling. RAD/Foot min 3 Views IMPRESSION: Nondisplaced transverse fracture at the base of the fifth metatarsal with overlying soft tissue swelling. Electronically Signed: Bo Chan MD at 12:40 EDT ,
== END | disposition home or self-care (01) ==
LOC: MTRAD 11:38
PROVIDERS: PCP Internal Medicine
DX: E11.42 Type 2 diabetes mellitus with diabetic polyneuropathy (principal); I73.9 Peripheral vascular disease, unspecified
CPT/HCPCS: 73630

== ENCOUNTER → 2024-05-23 | Outpatient (CLI) | payer MEDICARE, SELFPAY ==
[2024-05-23 15:31] LABS: Hematocrit 29.1 % (37-47); Hemoglobin 8.7 g/dL (12.0-15.0); Mean Corp Hgb Conc 29.9 g/dL (32-36); Mean Corpuscular Hgb 25.5 pg (27.0-32.0); Mean Corpuscular Volume 85.3 fL (81-99); Mean Platelet Vol. 10.3 fl (6.2-12.0); Platelet Count 293 K/mm3 (150-450); RBC Distribution Width CV 15.3 % (11.6-14.6); RBC Distribution Width SD 47.8 fl (35.1-43.9); Red Blood Count 3.41 M/mm3 (4.2-5.4); White Blood Count 8.1 K/mm3 (4.4-11.0)
[2024-05-23 15:51] LABS: Albumin, Serum 3.2 g/dL (3.2-5.0); BUN 35 mg/dL (7-18); BUN/Creat Ratio 15.5 RATIO (10-20); Calcium,Total 8.7 mg/dL (8.5-10.1); Chloride 110 mmol/L (98-107); Creatinine, Serum 2.26 mg/dL (0.55-1.02); EST Glomerular Filtration Rate 22 mL/min (>60); Est Glom Filt Rate - Afr Amer 27 mL/min (>60); Glucose 173 mg/dL (74-106); Phosphorus 3.1 mg/dL (2.5-4.9); Potassium 3.2 mmol/L (3.5-5.1); Sodium Level 143 mmol/L (136-145)
[2024-05-23 18:07] LABS: Protein, Urine (Random) 86.6 mg/dL (<11.9); Protein:Creat Ratio 734 mg/g CRE (0-200)
== END | disposition home or self-care (01) ==
LOC: MTLAB 12:31
PROVIDERS: PCP Internal Medicine; Referring Provider Internal Medicine Nephrology; Visit Provider Internal Medicine Nephrology
DX: N18.32 Chronic kidney disease, stage 3b (principal)
CPT/HCPCS: 36415; 80069; 82570; 84156; 85027

== ENCOUNTER 2024-06-05 02:18 | Emergency (ER) | payer MEDICARE, SELFPAY ==
[2024-06-05] VITALS (12 sets, daily range): BP systolic 154–186; BP diastolic 66–86; PULSE 51–102; RESP 16–19; TEMP 36.3–37.1; O2SAT 87–100; BMI 44.1
--- NOTE | 2024-06-05 02:42 | RAD_ITS ---
INDICATION: fall EXAMINATION/TECHNIQUE: X-RAY - XR Pelvis 1 or 2 Views COMPARISON: None. FINDINGS: PELVIC BONES: No displaced fracture, destructive or sclerotic lesions. Note that overlapping bowel shadows may however obscure fine detail. Moderate sacroiliac joint degenerative change without acute finding. Severe lower lumbar L4-5 and L5-S1 facet arthropathy.. No widening of the pubic symphysis. HIPS: Bilateral total hip arthroplasty in appropriate alignment. No evidence of hardware failure or loosening. No displaced femoral fracture seen in this frontal view. SOFT TISSUES: No soft tissue swelling or gas. Pelvic phleboliths. RAD/Pelvis 1 or 2 Views IMPRESSION: No evidence of pelvic or hip fracture. Electronically Signed: Michael Vickers MD at 4:26 EDT ,
--- NOTE | 2024-06-05 02:42 | CT_ITS ---
INDICATION: fall EXAMINATION: CT BRAIN - CT Head or Brain W/O Contrast Injection TECHNIQUE: Multiple axial images were obtained of the head without intravenous contrast. A radiation dose optimization technique was used for this scan. IV Contrast dosage and agent: None. COMPARISON: January 22, 2022 FINDINGS: BRAIN PARENCHYMA: No intra- or extra-axial hemorrhage. No evidence of acute infarct. No intracranial mass or mass effect. Mild periventricular and subcortical white matter hypodense chronic small vessel white matter ischemic change. There is preservation of the talamantes/white matter interface. Posterior fossa structures are unremarkable. CSF SPACES: Cerebral volume appropriate for age. No hydrocephalus. Basal cisterns are patent. CALVARIUM, SKULL BASE, PARANASAL SINUSES AND MASTOID AIR CELLS: No acute osseous finding. Mild scattered paransal sinus mucoperisteal thickening. Mastoid air cells are clear. ORBITS: Both globes, extraocular muscles, optic nerves and retrobulbar fat appear unremarkable. ASPECTS Score for Acute Strokes: 10 CT/Brain/Head without Contrast IMPRESSION: No CT evidence of acute intracranial hemorrhage or injury Mild senescent changes compatible with age. Electronically Signed: Michael Vickers MD at 4:18 EDT Reading Location ID and State: [facility] / [place] Tel , Service support ,
--- NOTE | 2024-06-05 02:42 | RAD_ITS ---
INDICATION: fall EXAMINATION/TECHNIQUE: X-RAY - LEFT XR Knee 1 or 2 Views 2 VIEWS COMPARISON: No relevant prior comparison study available FINDINGS: SOFT TISSUES: Diffuse lower extremity soft tissue prominence.. No radiopaque foreign body. BONES/JOINTS: Total knee arthroplasty with patellar resurfacing. No perihardware lucency or evidence of hardware failure.. Age-indeterminate osseous overlap along the medial distal femoral metaphysis with ill-defined transverse linear lucencies cephalad to the prosthesis on lateral view. Normal alignment. No fracture. No aggressive osseous lesion. RAD/Knee 1 or 2 Views IMPRESSION: Age-indeterminate distal femoral fracture just cephalad to femoral prosthesis status post total knee arthroplasty. Consider CT Prominent soft tissues with mild diffuse edema Electronically Signed: Michael Vickers MD at 4:33 EDT ,
--- NOTE | 2024-06-05 02:42 | CT_ITS ---
INDICATION: fall EXAMINATION: CT CERVICAL SPINE - CT Spine Cervical W/O Contrast Injection TECHNIQUE: Helically acquired images were obtained of the cervical spine. 2D reformatted images were reviewed. A radiation dose optimization technique was used for this scan. IV Contrast dosage and agent: None. COMPARISON: None. FINDINGS: VERTEBRAE: No fracture or acute compression deformity. No discrete lytic or blastic abnormality. Mild reversal of normal cervical lordosis. Minimal degenerative grade 1 anterolisthesis C4 on C5. Small anterior bridging osteophytes in the lower cervical spine. DISCS and SPINAL CANAL: Diffuse disc height loss most prominent in the lower cervical spine with small posterior disc osteophyte complexes causing minimal spinal canal and mild neural foraminal stenosis.. No critical stenosis. NECK SOFT TISSUES: No prevertebral soft tissue swelling. There is no cervical adenopathy. LUNG APICES: Clear. CT/Spine Cervical without Contras IMPRESSION: No evidence of acute cervical spinal fracture Reversal of normal cervical lordosis which there is likely degenerative but can be seen with muscle spasm in the appropriate setting. Spondylosis as above.. Electronically Signed: Michael Vickers MD at 4:24 EDT Reading Location ID and State: [facility] / [place] Tel , Service support ,
--- NOTE | 2024-06-05 02:42 | RAD_ITS ---
INDICATION: fall EXAMINATION/TECHNIQUE: X-RAY - XR Chest 1 View COMPARISON: January 22, 2022. FINDINGS: LINES/DEVICES: None. LUNGS: No consolidation, edema or effusion. No pneumothorax. MEDIASTINUM AND CARDIOVASCULAR STRUCTURES: Cardiac silhouette not enlarged. BONES AND SOFT TISSUES: Unremarkable. RAD/Chest 1 View (Portable) IMPRESSION: No radiographic evidence of acute cardiopulmonary disease. Electronically Signed: Michael Vickers MD at 4:25 EDT ,
[2024-06-05] MEDS: Ondansetron 4 MG/2 ML Vial IV (04:21)
[2024-06-05] MEDS: Morphine 4 MG/ML Syringe IV ×2 (04:23→16:50)
[2024-06-05 04:57] LABS: Absolute Lymphocyte Count 0.94 X10^3/uL (0.83-4.51); Absolute Neutrophil Count 12.8 X10^3/uL (2.0-7.7); Basophil# 0.07 X10^3/uL; Basophil% 0.4 % (0-1); Eosinophil# 0.51 X10^3/uL; Eosinophils% 3.1 % (0-5); Hematocrit 30.5 % (37-47); Hemoglobin 9.3 g/dL (12.0-15.0); Lymphocyte # 0.94 X10^3/ul (0.83-4.51); Lymphocyte % 5.8 % (19-41); Mean Corp Hgb Conc 30.5 g/dL (32-36); Mean Corpuscular Hgb 25.3 pg (27.0-32.0); Mean Corpuscular Volume 82.9 fL (81-99); Mean Platelet Vol. 9.7 fl (6.2-12.0); Monocyte# 1.73 X10^3/uL; Monocyte% 10.7 % (0-10); NRBC Flagged by Analyzer 0 % (0-5); Neutrophil # 12.84 X10^3/uL (2.7-7.7); Neutrophil % 79.1 % (47-70); POSITIVE DIFFERENTIAL YES; Platelet Count 318 K/mm3 (150-450); RBC Distribution Width CV 15.2 % (11.6-14.6); RBC Distribution Width SD 46.3 fl (35.1-43.9); Red Blood Count 3.68 M/mm3 (4.2-5.4); White Blood Count 16.2 K/mm3 (4.4-11.0)
[2024-06-05 05:21] LABS: Anion Gap 7 (5-15); BUN 31 mg/dL (7-18); BUN/Creat Ratio 13.1 RATIO (10-20); Calcium,Total 8.8 mg/dL (8.5-10.1); Chloride 109 mmol/L (98-107); Creatinine, Serum 2.36 mg/dL (0.55-1.02); EST Glomerular Filtration Rate 21 mL/min (>60); Est Glom Filt Rate - Afr Amer 26 mL/min (>60); Estimated Creatinine Clearance 23.28 ml/min; Glucose 171 mg/dL (74-106); Potassium 3.4 mmol/L (3.5-5.1); Sodium Level 142 mmol/L (136-145)
[2024-06-05 05:43] LABS: Differential Indicated SCAN CRITERIA MET
--- NOTE | 2024-06-05 07:33 | NURSING ---
0701 CALLED [facility] TRANSFER LINE. TALKED TO
--- NOTE | 2024-06-05 07:40 | NURSING ---
[address] MAGANA
--- NOTE | 2024-06-05 07:56 | EDS_ITS ---
HPI History of Present Illness Chief Complaint: Fall Informant: patient and EMS Narrative Narrative: Patient is a 78-year-old female with past medical history of hypertension hyperlipidemia insulin-dependent diabetes and lymphedema. 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 She states that she went to check on her cat and as she was walking back into her living room tripped on her nightgown and fell landing on her left side. She denies striking her head any loss of consciousness or history of bleeding disorder or blood thinner use. She states however she could not get up following the fall. She was able to activate her life alert and when EMS arrived they still could not get her to stand and therefore she was brought in with concern for underlying injury. [facility] Medical History Anemia CKD (chronic kidney disease) Microscopic colitis Osteoarthritis History of irritable colon Essential hypertension Dyslipidemia Anxiety Diabetes Kidney disease GI bleed Non-smoker Upper GI bleed Duodenal ulcer Candidiasis of breast History of anemia History of hypertension History of chronic kidney disease History of hyperlipidemia History of diabetes insipidus Candidal intertrigo Stage 3b chronic kidney disease (CKD) Osteoporosis Hyperlipidemia Anemia Hypertension Lymphedema Morbid obesity History of gastroesophageal reflux (GERD) Type II diabetes mellitus Home Medications ?Medication ?Instructions ?Recorded ?Last Taken ?Type folic acid 1 mg tablet 1 mg PO DAILY@0800 SUPPLEMENT 01/21/17 04/08/24 History rosuvastatin 40 mg tablet (Crestor) 40 mg PO QHS CHOLESTEROL 01/21/17 04/07/24 History alendronate 70 mg tablet 70 mg PO FAUSTIN BONES 03/05/19 04/07/24 History calcium carbonate 600 mg-vitamin 1 tab PO BID SUPPLEMENT 03/05/19 04/08/24 History D3 20 mcg (800 unit) tablet (Caltrate with Vitamin D3) cholecalciferol (vitamin D3) 125 8,000 unit PO DAILY SUPPLEMENT 03/05/19 04/08/24 History mcg (5,000 unit) capsule citalopram 20 mg tablet 20 mg PO QHS mental health 01/22/22 04/07/24 History acetaminophen 325 mg tablet 650 mg PO Q6H PRN Mild Pain 02/15/24 02/14/24 History (Tylenol) (1-3)/Temp > 100.7 F insulin detemir U-100 100 unit/mL 10 unit subcut QHS 02/15/24 02/13/24 History (3 mL) subcutaneous pen (Levemir FlexPen) pentoxifylline 400 mg 400 mg PO DAILY 02/15/24 04/08/24 History tablet,extended release vitamin E 268 mg (400 unit) capsule 268 mg PO DAILY 02/15/24 04/08/24 History pantoprazole 40 mg tablet,delayed 40 mg PO BID #60 tabs 02/23/24 04/08/24 Rx release sucralfate 1 gram tablet 1 g PO TID #135 tabs 02/23/24 04/08/24 Rx sitagliptin phosphate 50 mg tablet 50 mg PO DAILY BLOOD SUGAR 04/08/24 04/08/24 History (Januvia) amlodipine 10 mg tablet 10 mg PO DAILY #30 tabs 04/12/24 Unknown Rx furosemide 40 mg tablet 20 mg (1/2 x 40 mg) PO DAILY #30 04/12/24 Unknown Rx tabs lisinopril 40 mg tablet 40 mg PO DAILY #30 tabs 04/12/24 Unknown Rx metoprolol succinate 50 mg 50 mg PO DAILY HEART #30 tabs 04/12/24 02/14/24 Rx tablet,extended release 24 hr (Toprol XL) potassium chloride 20 mEq 20 meq PO DAILY #30 tabs 04/12/24 Unknown Rx tablet,extended release budesonide 3 mg 6 mg (2 x 3 mg) PO DAILY bowels 05/20/24 Unknown Rx capsule,delayed,extended release #60 ea Allergy/AdvReac Type Severity Reaction Status Date / Time chlorhexidine Allergy Unknown Verified 06/05/24 02:26 Iodinated Contrast Media Allergy Other Verified 06/05/24 02:26 (CONTRASTS) iodine Allergy Unknown Verified 06/05/24 02:26 latex Allergy Rash Verified 06/05/24 02:26 Family History Other Diabetes Surgical History History of elbow surgery History of tonsillectomy and adenoidectomy 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 Social History household members: none Smoking Status: Never smoker alcohol intake: never substance use type: does not use ROS ROS ED Constitutional Constitutional ED: Denies chills or fever(s) Eyes Eyes: Denies blurry vision or change in vision ENT ENT ED: Denies sore throat Cardiovascular Cardiovascular: Denies chest pain, palpitations or racing heartbeat Respiratory/Chest Respiratory/Chest: Denies cough or dyspnea Gastrointestinal Gastrointestinal: Denies abdominal pain, diarrhea, nausea or vomiting Genitourinary Genitourinary ED: Denies dysuria Musculoskeletal Musculoskeletal: Reports other Details: Positive left knee pain ; Denies back pain Integumentary Reports other Details: Positive wounds bilateral lower legs ; Denies rash Neurologic Neurologic: Denies headache(s) or paresthesias Hematologic/Lymphatic Hematologic/Lymphatic: Denies easy bleeding or easy bruising EXAM Physical Exam Const Vital Signs: 06/05/24 02:18 06/05/24 02:18 06/05/24 04:16 Temperature 98 F 98.7 F Temperature Source Oral Temporal Pulse Rate 93 86 Respiratory Rate 18 16 Respiratory Effort Short of Breath Respiratory Depth Normal Respiratory Pattern Tachypnea Blood Pressure 181/86 H 186/78 H Blood Pressure Mean 117 114 Pulse Ox 87 95 98 Oxygen Delivery Method Room Air Nasal Cannula Room Air Oxygen Flow Rate (L/min) 2 06/05/24 04:27 06/05/24 04:27 06/05/24 06:03 Temperature 98.7 F Temperature Source Temporal Pulse Rate 63 63 Respiratory Rate 16 Respiratory Effort Respiratory Depth Respiratory Pattern Blood Pressure 176/76 H Blood Pressure Mean 109 Pulse Ox 95 94 94 Oxygen Delivery Method Nasal Cannula Nasal Cannula Nasal Cannula Oxygen Flow Rate (L/min) 3 3 3 06/05/24 07:20 Temperature 97.5 F L Temperature Source Temporal Pulse Rate 61 Respiratory Rate 17 Respiratory Effort Respiratory Depth Respiratory Pattern Blood Pressure 154/66 H Blood Pressure Mean 95 Pulse Ox 94 Oxygen Delivery Method Nasal Cannula Oxygen Flow Rate (L/min) 2 Positive well nourished, well developed and obese General Appearance ED: well developed Nutritional Appearance: obese HEENT HEENT Narrative: Normocephalic atraumatic Eyes PERRL and EOMs intact bilaterally General Eye ED: Negative for pale conjunctiva or scleral icterus Neck supple Neck Narrative: No bony deformity or step-off of the cervical spine no midline tenderness to palpation Chest Wall palpation of chest normal Chest Narrative: No bony deformity or crepitance noted Resp normal respiratory effort Resp Narrative: Breath sounds are diminished throughout with faint crackles noted in the bilateral bases but no nasal flaring retractions tachypnea or accessory muscle use Cardio regular rate and regular rhythm GI normal to inspection, nondistended, normoactive bowel sounds, non-tender, non- distended and no masses GI Narrative: No voluntary guarding or rigidity or pulsatile mass Auscultation: normoactive bowel sounds Palpation: soft Extremity Extremity Narrative: Pelvis is stable there is no shortening or external rotation of either lower extremity Left lower extremity is neurovascularly intact. Patient has soft tissue swelling with pain with palpation of the anterior aspect of the left knee and distal femur on left. Active and passive range of motion is decreased secondary to pain Neuro oriented x3, CN's II-XII intact bilaterally and no sensory deficits noted Sensorium / Orientation: alert Psych mental status grossly normal Skin no rashes or lesions noted Skin Narrative: Soft tissue swelling of the anterior aspect of the left distal femur/knee Patient has chronic stasis changes to the bilateral lower legs and areas of ulceration consistent with lymphedema. No secondary findings to suggest infection MDM MDM MDM Narrative Medical decision making narrative: Patient arrived to the ER awake and alert and reported a mechanical fall. Therefore I felt no need for cardiac or syncope work. However with concern for underlying traumatic skull fracture versus subdural or epidural hematoma as well as cervical compression fracture CT scans were obtained. These images revealed no signs of underlying trauma. Secondary to the fall there was concern for pneumothorax versus rib fracture versus hemothorax so chest x-ray was obtained which was also normal. Pelvis x-ray revealed no signs of pubic rami fracture or femoral neck fracture. Left knee x-ray however did show changes consistent with a periprosthetic fracture. This correlates with the patient's fall and her inability to ambulate as well as pain and soft tissue. The periprosthetic fracture is too complicated to keep at this facility and therefore [facility] was contacted and patient will be accepted to [facility].Case was discussed with orthopedic surgeon Dr. Caban who does state that he feels the patient is appropriate for their facilility. However because of her advanced age and multiple medical issues the patient's case was discussed with the hospitalist and he agrees to accept her to the facility for medical management and surgical clearance. History & Record Review Discussion w/independent historian: Patient Lab Data Attestation: I reviewed the patient's lab results. Labs: Laboratory Results - last 24 hr 06/05/24 04:15 WBC 16.2 H RBC 3.68 L Hgb 9.3 L Hct 30.5 L MCV 82.9 MCH 25.3 L MCHC 30.5 L RDW Std Deviation 46.3 H RDW Coeff of Juan [place] 15.2 H Plt Count 318 MPV 9.7 Immature Gran % (Auto) 0.900 Neut % (Auto) 79.1 H Lymph % (Auto) 5.8 L [place] % (Auto) 10.7 H Eos % (Auto) 3.1 Baso % (Auto) 0.4 Absolute Neuts (auto) 12.8 H Absolute Lymphs (auto) 0.94 Nucleated RBC % 0 [address] Path Review May foll Sodium 142 Potassium 3.4 L Chloride 109 H Carbon Dioxide 26.0 Anion Gap 7 BUN 31 H Creatinine 2.36 H Estim Creat Clear Calc 23.28 Est GFR (MDRD) Af Amer 26 L Est GFR (MDRD) Non-Af 21 L BUN/Creatinine Ratio 13.1 Glucose 171 H Calcium 8.8 B-Natriuretic Peptide 220.0 H Radiography Diagnostic Testing: Clinical Impression(s) from Imaging Studies Brain CT 06/05/24 02:42 IMPRESSION: No CT evidence of acute intracranial hemorrhage or injury Mild senescent changes compatible with age. Electronically Signed: Michael Vickers MD at 4:18 EDT Reading Location ID and State: [facility] / [place] Tel , Service support , Cervical Spine CT 06/05/24 02:42 IMPRESSION: No evidence of acute cervical spinal fracture Reversal of normal cervical lordosis which there is likely degenerative but can be seen with muscle spasm in the appropriate setting. Spondylosis as above.. Electronically Signed: Michael Vickers MD at 4:24 EDT Reading Location ID and State: [facility] / [place] Tel , Service support , Chest X-Ray 06/05/24 02:42 IMPRESSION: No radiographic evidence of acute cardiopulmonary disease. Electronically Signed: Michael Vickers MD at 4:25 EDT , Knee X-Ray 06/05/24 02:42 IMPRESSION: Age-indeterminate distal femoral fracture just cephalad to femoral prosthesis status post total knee arthroplasty. Consider CT Prominent soft tissues with mild diffuse edema Electronically Signed: Michael Vickers MD at 4:33 EDT , Pelvis X-Ray 06/05/24 02:42 IMPRESSION: No evidence of pelvic or hip fracture. Electronically Signed: Michael Vickers MD at 4:26 EDT , Chest x-ray as interpreted by the emergency medicine physician reveals no acute infiltrate pneumothorax or pleural effusion Pelvis x-ray as interpreted by the emergency medicine physician reveals no acute fracture or dislocation Left knee x-ray as interpreted by the emergency medicine physician reveals a impacted distal femur periprosthetic fracture. Management Discussion w/another healthcare provider: Hospitalist and [employer] Discharge Plan Triage Chief Complaint: Fall ED Provider: Fidel Pope Dx/Rx/DC Orders Clinical Impression: Kelle-prosthetic fracture of femur at tip of prosthesis, Chronic kidney disease, Insulin dependent diabetes mellitus, Hypertension, Accidental fall Prescriptions: No Action budesonide 3 mg capsule,delayed,extend.release 6 mg PO DAILY Qty: 60 2RF folic acid 1 MG tablet 1 mg PO DAILY@0800 rosuvastatin [Crestor] 40 MG tablet 40 mg PO QHS alendronate 70 MG tablet 70 mg PO FAUSTIN Patient Comments: per pt on hold until told to resume cholecalciferol (vitamin D3) 5,000 UNIT capsule 8,000 unit PO DAILY calcium carbonate-vitamin D3 [Caltrate with Vitamin D3] 1 TAB tablet 1 tab PO BID citalopram 20 mg tablet 20 mg PO QHS acetaminophen [Tylenol] 325 MG tablet 650 mg PO Q6H PRN (Reason: Mild Pain (1-3)/Temp > 100.7 F) Levemir FlexPen 100 unit/mL (3 mL) insulin pen 10 unit subcut QHS pentoxifylline 400 mg tablet extended release 400 mg PO DAILY vitamin E 268 mg (400 unit) capsule 268 mg PO DAILY pantoprazole 40 mg Tablet,Delayed Release (Dr/Ec) 40 mg PO BID Qty: 60 1RF sucralfate 1 gram Tablet 1 g PO TID Qty: 135 0RF Januvia 50 mg tablet 50 mg PO DAILY furosemide 40 mg Tablet 20 mg PO DAILY Qty: 30 0RF amlodipine 10 mg Tablet 10 mg PO DAILY Qty: 30 0RF lisinopril 40 mg Tablet 40 mg PO DAILY Qty: 30 0RF metoprolol succinate [Toprol XL] 50 MG tablet extended release 24 hr 50 mg PO DAILY Qty: 30 0RF potassium chloride 20 mEq tablet extended release 20 meq PO DAILY Qty: 30 0RF Primary Care Provider: Elena Mims Referrals: Elena Mims DO [Primary Care Provider] - Print Language: Angolan Disposition Disposition: Acute Care Hospital Discharge Location: [facility]
--- NOTE | 2024-06-05 09:59 | NURSING ---
CALLED FOR AN UPDATE ON BED STATUS. NONE YET
--- NOTE | 2024-06-05 11:48 | NURSING ---
CALLED [facility] TRANSFER LINE, TALKED TO LAVELL. NO BED YET
[2024-06-05 13:38] LABS: Pathologist Review Reviewed
--- NOTE | 2024-06-05 14:05 | NURSING ---
CALLED [facility] TRANSFER LINE, TALKED TO JILLIAN. SHE SUGGESTED WE ADMIT PATIENT
--- NOTE | 2024-06-05 14:51 | NURSING ---
MED SURG OBS TERELETSKY FALL, LEFT KNEE PERIPROSTETIC FRACTURE, CKD, ANEMIA
--- NOTE | 2024-06-05 16:13 | PCM.HP.STD ---
HPI - General General Date of Admission: 06/05/24 Date of Service: 06/05/24 Chief Complaint: Left periprosthetic femur fracture HPI Narrative AZUL NAVARRETE, is a 78 F who presents to the ER at [facility] with complaints of left knee discomfort after falling at home. Patient tripped over her robe. Workup in the emergency room was carried out, there was noted to be a periprosthetic distal femur fracture on the left side, there were no orthopedic surgeons on-call today and so arrangements were made for the patient to be admitted to [facility] but there were no beds available so the patient has been held in the emergency room since early this morning. ER physician has requested the patient be admitted to the floor for further care until a bed is available at [facility]. Patient has no complaints of any discomfort at the time of my examination, she is requiring supplemental oxygen to maintain her pulse ox above 90%. [facility] Medical History Anemia CKD (chronic kidney disease) Microscopic colitis Osteoarthritis History of irritable colon Essential hypertension Dyslipidemia Anxiety Diabetes Kidney disease GI bleed Non-smoker Upper GI bleed Duodenal ulcer Candidiasis of breast History of anemia History of hypertension History of chronic kidney disease History of hyperlipidemia History of diabetes insipidus Candidal intertrigo Stage 3b chronic kidney disease (CKD) Osteoporosis Hyperlipidemia Anemia Hypertension Lymphedema Morbid obesity History of gastroesophageal reflux (GERD) Type II diabetes mellitus Home Medications ?Medication ?Instructions ?Recorded ?Last Taken ?Type folic acid 1 mg tablet 1 mg PO DAILY@0800 SUPPLEMENT 01/21/17 06/04/24 History rosuvastatin 40 mg tablet (Crestor) 40 mg PO QHS CHOLESTEROL 01/21/17 06/03/24 History alendronate 70 mg tablet 70 mg PO FAUSTIN BONES 03/05/19 04/07/24 History calcium carbonate 600 mg-vitamin 1 tab PO BID SUPPLEMENT 03/05/19 04/08/24 History D3 20 mcg (800 unit) tablet (Caltrate with Vitamin D3) cholecalciferol (vitamin D3) 125 8,000 unit PO DAILY SUPPLEMENT 03/05/19 04/08/24 History mcg (5,000 unit) capsule citalopram 20 mg tablet 20 mg PO QHS mental health 01/22/22 06/03/24 History pentoxifylline 400 mg 400 mg PO DAILY 02/15/24 04/08/24 History tablet,extended release vitamin E 268 mg (400 unit) capsule 268 mg PO DAILY 02/15/24 04/08/24 History sitagliptin phosphate 50 mg tablet 50 mg PO DAILY BLOOD SUGAR 04/08/24 06/04/24 History (Januvia) furosemide 40 mg tablet 20 mg (1/2 x 40 mg) PO DAILY #30 04/12/24 06/04/24 Rx tabs lisinopril 40 mg tablet 40 mg PO DAILY #30 tabs 04/12/24 06/04/24 Rx metoprolol succinate 50 mg 50 mg PO DAILY HEART #30 tabs 04/12/24 06/04/24 Rx tablet,extended release 24 hr (Toprol XL) potassium chloride 20 mEq 20 meq PO DAILY #30 tabs 04/12/24 06/04/24 Rx tablet,extended release budesonide 3 mg 6 mg (2 x 3 mg) PO DAILY bowels 05/20/24 06/04/24 Rx capsule,delayed,extended release #60 ea amlodipine 5 mg tablet 5 mg PO DAILY 06/05/24 06/04/24 History ferrous sulfate 325 mg (65 mg 325 mg PO BID 06/05/24 06/04/24 History iron) tablet (FeroSul) insulin glargine 100 unit/mL (3 8 unit subcut QHS 06/05/24 06/03/24 History mL) subcutaneous pen (Lantus Solostar U-100 Insulin) lisinopril 10 mg tablet 10 mg PO BID 06/05/24 06/04/24 History nystatin 100,000 unit/gram topical 1 applic topical BID PRN skin 06/05/24 Unknown History powder ([facility]) irritation Allergy/AdvReac Type Severity Reaction Status Date / Time chlorhexidine Allergy Unknown Verified 06/05/24 02:26 Iodinated Contrast Media Allergy Other Verified 06/05/24 02:26 (CONTRASTS) iodine Allergy Unknown Verified 06/05/24 02:26 latex Allergy Rash Verified 06/05/24 02:26 Family History Other Diabetes Surgical History History of elbow surgery History of tonsillectomy and adenoidectomy 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 Social History household members: none Smoking Status: Never smoker alcohol intake: never substance use type: does not use ROS Constitutional Constitutional: Denies anorexia, change in weight, fever(s), night sweats or weakness Eyes Eyes: Denies blurry vision, change in vision, discharge from eye(s) or eye pain Cardiovascular Cardiovascular: Denies chest pain, claudication, edema or palpitations Respiratory/Chest Respiratory/Chest: Denies cough, hemoptysis, shortness of breath at rest or shortness of breath with exertion Gastrointestinal Gastrointestinal: Denies abdominal pain, constipation, diarrhea, hematemesis, hematochezia, melena, nausea or vomiting Genitourinary Genitourinary: Denies dysuria, hematuria, urinary frequency, urinary hesitancy, urinary incontinence or urinary urgency Musculoskeletal Musculoskeletal: Reports joint pain; Denies back pain, joint stiffness, joint swelling, myalgias or neck pain Neurologic Neurologic: Denies abnormal gait, abnormal speech, dizziness, focal weakness, headache(s), loss of vision, numbness, other visual disturbances, paresthesias, syncope or tingling Psychiatric Psychiatric: Denies anxiety, cognitive impairment, depression, irritability, mood swings or suicidal ideation Endocrine Endocrinology: Denies change in body appearance, cold intolerance, excessive sweating, heat intolerance, polydipsia or polyuria Hematologic/Lymphatic Hematologic/Lymphatic: Denies none, anemia, easy bleeding, easy bruising or lymphadenopathy Allergic/Immunologic Allergic/Immunologic: Denies rhinitis, urticaria, eczemia or asthma Vital Signs Vital Signs Vital Signs: 06/05/24 02:18 06/05/24 02:18 06/05/24 04:16 Temperature 98 F 98.7 F Temperature Source Oral Temporal Pulse Rate 93 86 Respiratory Rate 18 16 Respiratory Effort Short of Breath Respiratory Depth Normal Respiratory Pattern Tachypnea Blood Pressure 181/86 H 186/78 H Blood Pressure Mean 117 114 Pulse Ox 87 95 98 Oxygen Delivery Method Room Air Nasal Cannula Room Air Oxygen Flow Rate (L/min) 2 06/05/24 04:27 06/05/24 04:27 06/05/24 06:03 Temperature 98.7 F Temperature Source Temporal Pulse Rate 63 63 Respiratory Rate 16 Respiratory Effort Respiratory Depth Respiratory Pattern Blood Pressure 176/76 H Blood Pressure Mean 109 Pulse Ox 95 94 94 Oxygen Delivery Method Nasal Cannula Nasal Cannula Nasal Cannula Oxygen Flow Rate (L/min) 3 3 3 06/05/24 07:20 06/05/24 08:00 06/05/24 10:00 Temperature 97.5 F L 97.4 F L Temperature Source Temporal Temporal Pulse Rate 61 58 L 102 H Respiratory Rate 17 17 16 Respiratory Effort Respiratory Depth Respiratory Pattern Blood Pressure 154/66 H 174/70 H 158/68 H Blood Pressure Mean 95 104 98 Pulse Ox 94 93 95 Oxygen Delivery Method Nasal Cannula Nasal Cannula Nasal Cannula Oxygen Flow Rate (L/min) 2 2 2 06/05/24 12:00 06/05/24 14:04 06/05/24 14:22 Temperature 97.6 F L Temperature Source Pulse Rate 56 L 51 L 57 L Respiratory Rate 16 18 Respiratory Effort Respiratory Depth Respiratory Pattern Blood Pressure 158/70 H 163/75 H 173/71 H Blood Pressure Mean 99 104 105 Pulse Ox 100 95 99 Oxygen Delivery Method Oxygen Flow Rate (L/min) 06/05/24 16:00 Temperature Temperature Source Pulse Rate 54 L Respiratory Rate 19 H Respiratory Effort Respiratory Depth Respiratory Pattern Blood Pressure 176/74 H Blood Pressure Mean 108 Pulse Ox 95 Oxygen Delivery Method Nasal Cannula Oxygen Flow Rate (L/min) 2 Weight Weight: 109.5 kg Body Mass Index (BMI) 44.1 Physical Exam Const alert, oriented x3 and no apparent distress Constitutional Narrative: Patient is morbidly obese General Appearance: cooperative, well kempt and well developed Orientation / Consciousness: awake, oriented to person, oriented to place and oriented to time HEENT normocephalic, head/scalp atraumatic and moist oral mucous membranes Eyes PERRL, EOMs intact bilaterally and conjunctivae normal Neck supple, no JVD, thyroid normal and no carotid bruits General: trachea midline Resp normal respiratory effort, no retractions, no use of accessory muscles and clear to auscultation bilaterally Auscultation: Negative for rales, rhonchi or wheezes Cardio regular rate, regular rhythm, S1 normal heart sound, S2 normal heart sound, no murmurs, no rub and no gallops GI normal to inspection, nondistended, normoactive bowel sounds, soft to palpation, non-tender and non-distended Extremity Extremity Narrative: Patient's left leg was not moved due to her fracture Skin no rashes or lesions noted General Skin Exam: no breakdown Neuro oriented x3, CN's II-XII intact bilaterally, no focal motor deficits and no sensory deficits noted Sensorium / Orientation: awake and alert Speech: speech normal Psych affect normal Results Lab / Micro Data 06/05/24 04:15 06/05/24 04:15 Labs: Laboratory Results - last 24 hr 06/05/24 04:15: WBC 16.2 H, RBC 3.68 L, Hgb 9.3 L, Hct 30.5 L, MCV 82.9, MCH 25.3 L, MCHC 30.5 L, RDW Std Deviation 46.3 H, RDW Coeff of [place] 15.2 H, Plt Count 318, MPV 9.7, Immature Gran % (Auto) 0.900, Neut % (Auto) 79.1 H, Lymph % (Auto) 5.8 L, [place] % (Auto) 10.7 H, Eos % (Auto) 3.1, Baso % (Auto) 0.4, Absolute Neuts (auto) 12.8 H, Absolute Lymphs (auto) 0.94, Nucleated RBC % 0, Diff Path Review Reviewed, Sodium 142, Potassium 3.4 L, Chloride 109 H, Carbon Dioxide 26.0, Anion Gap 7, BUN 31 H, Creatinine 2.36 H, Estim Creat Clear Calc 23.28, Est GFR (MDRD) Af Amer 26 L, Est GFR (MDRD) Non-Af 21 L, BUN/Creatinine Ratio 13.1, Glucose 171 H, Calcium 8.8, B-Natriuretic Peptide 220.0 H Imaging Radiology Impression Brain CT 06/05/24 02:42 IMPRESSION: No CT evidence of acute intracranial hemorrhage or injury Mild senescent changes compatible with age. Electronically Signed: Michael Vickers MD at 4:18 EDT , Cervical Spine CT 06/05/24 02:42 IMPRESSION: No evidence of acute cervical spinal fracture Reversal of normal cervical lordosis which there is likely degenerative but can be seen with muscle spasm in the appropriate setting. Spondylosis as above.. Electronically Signed: Michael Vickers MD at 4:24 EDT , Chest X-Ray 06/05/24 02:42 IMPRESSION: No radiographic evidence of acute cardiopulmonary disease. Electronically Signed: Michael Vickers MD at 4:25 EDT , Knee X-Ray 06/05/24 02:42 IMPRESSION: Age-indeterminate distal femoral fracture just cephalad to femoral prosthesis status post total knee arthroplasty. Consider CT Prominent soft tissues with mild diffuse edema Electronically Signed: Michael Vickers MD at 4:33 EDT , Pelvis X-Ray 06/05/24 02:42 IMPRESSION: No evidence of pelvic or hip fracture. Electronically Signed: Michael Vickers MD at 4:26 EDT , Assessment & Plan Assessment/Plan (1) Kelle-prosthetic fracture of femur at tip of prosthesis: PLAN: Plan 1. Periprosthetic fracture of the distal left femur-patient will be admitted to [place] [id number], she will be seen by PT and OT, we are awaiting a bed at [facility] for transfer of the patient. #2 type 2 diabetes-fingerstick blood sugars will be monitored, patient is on basal insulin and this will be continued as well as her Januvia. #3 essential hypertension-patient will remain on her medications from home, these will be adjusted as needed #4 morbid obesity-complicates care, management, recovery, and prognosis #5 chronic kidney disease stage IV-complicates care, management, recovery, and prognosis #6 hypokalemia-not felt to be significant, BMP will be repeated tomorrow #7 leukocytosis-probably secondary to stress, CBC will be repeated tomorrow #8 anemia-patient uses iron supplements Total clinical time spent by myself addressing the patient's medical issues, reviewing all of her data, and collaborating with patient's care team: 55 minutes Charges/Coding Visit Charges Inpatient E&M: 11468 Init Hosp L2
--- NOTE | 2024-06-05 16:45 | NURSING ---
CALLED [facility] TRANSFER LINE, TALKED TO VENITA. NO BED YET
--- NOTE | 2024-06-05 18:02 | NURSING ---
CALLED [facility] TRANSFER LINE, TALKED TO LAVELL. NO BED YET
== END 2024-06-05 19:46 | disposition short-term general hospital (02) ==
PROVIDERS: Emergency Provider Emergency Medicine; PCP Internal Medicine; Visit Provider Emergency Medicine
DX: S72.492A Other fracture of lower end of left femur, initial encounter for closed fracture (principal); Z68.41 Body mass index [BMI] 40.0-44.9, adult; E11.22 Type 2 diabetes mellitus with diabetic chronic kidney disease; Z79.4 Long term (current) use of insulin; N18.32 Chronic kidney disease, stage 3b; E66.9 Obesity, unspecified; M97.12XA Periprosthetic fracture around internal prosthetic left knee joint, initial encounter; W01.0XXA Fall on same level from slipping, tripping and stumbling without subsequent striking against object, initial encounter; Y93.01 Activity, walking, marching and hiking; Y99.8 Other external cause status; Y92.009 Unspecified place in unspecified non-institutional (private) residence as the place of occurrence of the external cause; E78.5 Hyperlipidemia, unspecified; I12.9 Hypertensive chronic kidney disease with stage 1 through stage 4 chronic kidney disease, or unspecified chronic kidney disease; Z96.643 Presence of artificial hip joint, bilateral; Z96.653 Presence of artificial knee joint, bilateral; Z79.84 Long term (current) use of oral hypoglycemic drugs; Z79.899 Other long term (current) drug therapy
CPT/HCPCS: 70450; 71045; 72125; 72170; 73560; 80048; 83880; 85025; 96374; 96375; 96376; 99284; A4216; J2405

== ENCOUNTER → 2024-08-22 | Outpatient (REF) | payer MEDICARE, SELFPAY ==
[2024-08-22 09:00] LABS: Absolute Lymphocyte Count 1.36 X10^3/uL (0.83-4.51); Absolute Neutrophil Count 7.4 X10^3/uL (2.0-7.7); Basophil# 0.06 X10^3/uL; Basophil% 0.5 % (0-1); Eosinophil# 0.34 X10^3/uL; Eosinophils% 3.1 % (0-5); Hemoglobin 8.4 g/dL (12.0-15.0); Lymphocyte # 1.36 X10^3/ul (0.83-4.51); Lymphocyte % 12.3 % (19-41); Mean Corp Hgb Conc 31.1 g/dL (32-36); Mean Corpuscular Hgb 25.2 pg (27.0-32.0); Mean Corpuscular Volume 81.1 fL (81-99); Mean Platelet Vol. 9.2 fl (6.2-12.0); Monocyte# 1.58 X10^3/uL; Monocyte% 14.2 % (0-10); NRBC Flagged by Analyzer 0 % (0-5); Neutrophil # 7.42 X10^3/uL (2.7-7.7); Neutrophil % 66.9 % (47-70); POSITIVE DIFFERENTIAL YES; Platelet Count 310 K/mm3 (150-450); RBC Distribution Width CV 17.8 % (11.6-14.6); RBC Distribution Width SD 52.8 fl (35.1-43.9); Red Blood Count 3.33 M/mm3 (4.2-5.4); White Blood Count 11.1 K/mm3 (4.4-11.0)
[2024-08-22 09:05] LABS: Differential Indicated SCAN CRITERIA MET
[2024-08-22 09:31] LABS: Crenated RBC 1+; Ovalocyte 1+; Schistocytes 1+
[2024-08-22 10:00] LABS: Anion Gap 6 (5-15); BUN 78 mg/dL (7-18); BUN/Creat Ratio 27.2 RATIO (10-20); Calcium,Total 9.8 mg/dL (8.5-10.1); Chloride 111 mmol/L (98-107); Creatinine, Serum 2.87 mg/dL (0.55-1.02); EST Glomerular Filtration Rate 17 mL/min (>60); Est Glom Filt Rate - Afr Amer 20 mL/min (>60); Glucose 138 mg/dL (74-106); Potassium 4.3 mmol/L (3.5-5.1); Sodium Level 139 mmol/L (136-145)
== END ==
LOC: OLS.WHLTCC 05:00
PROVIDERS: PCP Internal Medicine; Visit Provider Internal Medicine
DX: E88.09 Other disorders of plasma-protein metabolism, not elsewhere classified (principal); N39.0 Urinary tract infection, site not specified
CPT/HCPCS: 36415; 80048; 85025

== ENCOUNTER → 2024-08-29 | Outpatient (REF) | payer MEDICARE, SELFPAY ==
[2024-08-29 08:21] LABS: Hematocrit 27.6 % (37-47); Hemoglobin 8.8 g/dL (12.0-15.0); Mean Corp Hgb Conc 31.9 g/dL (32-36); Mean Corpuscular Hgb 25.8 pg (27.0-32.0); Mean Corpuscular Volume 80.9 fL (81-99); Mean Platelet Vol. 9.5 fl (6.2-12.0); Platelet Count 318 K/mm3 (150-450); RBC Distribution Width CV 17.6 % (11.6-14.6); RBC Distribution Width SD 51.6 fl (35.1-43.9); Red Blood Count 3.41 M/mm3 (4.2-5.4); White Blood Count 13.8 K/mm3 (4.4-11.0)
[2024-08-29 08:36] LABS: Albumin, Serum 2.9 g/dL (3.2-5.0); BUN 83 mg/dL (7-18); BUN/Creat Ratio 30.4 RATIO (10-20); Calcium,Total 9.1 mg/dL (8.5-10.1); Chloride 112 mmol/L (98-107); Creatinine, Serum 2.73 mg/dL (0.55-1.02); EST Glomerular Filtration Rate 18 mL/min (>60); Est Glom Filt Rate - Afr Amer 22 mL/min (>60); Glucose 120 mg/dL (74-106); Phosphorus 3.6 mg/dL (2.5-4.9); Potassium 4.4 mmol/L (3.5-5.1); Sodium Level 141 mmol/L (136-145)
== END ==
LOC: OLS.WHLTCC 05:00
PROVIDERS: PCP Internal Medicine; Visit Provider Internal Medicine
DX: E88.09 Other disorders of plasma-protein metabolism, not elsewhere classified (principal); N39.0 Urinary tract infection, site not specified
CPT/HCPCS: 36415; 80069; 85027

== ENCOUNTER → 2024-08-30 | Outpatient (REF) | payer MEDICARE, SELFPAY ==
[2024-08-30 09:19] LABS: Protein, Urine (Random) 10.4 mg/dL (<11.9); Protein:Creat Ratio 375 mg/g CRE (0-200)
== END ==
LOC: OLS.WHLTCC 03:30
PROVIDERS: PCP Internal Medicine; Visit Provider Internal Medicine
DX: N18.32 Chronic kidney disease, stage 3b (principal)
CPT/HCPCS: 82570; 84156

== ENCOUNTER → 2024-09-05 | Outpatient (REF) | payer MEDICARE, SELFPAY ==
[2024-09-05 08:09] LABS: Absolute Lymphocyte Count 1.17 X10^3/uL (0.83-4.51); Absolute Neutrophil Count 6.5 X10^3/uL (2.0-7.7); Basophil# 0.05 X10^3/uL; Basophil% 0.5 % (0-1); Eosinophil# 0.36 X10^3/uL; Eosinophils% 3.9 % (0-5); Hematocrit 29.7 % (37-47); Hemoglobin 9.2 g/dL (12.0-15.0); Lymphocyte # 1.17 X10^3/ul (0.83-4.51); Lymphocyte % 12.7 % (19-41); Mean Corpuscular Hgb 25.8 pg (27.0-32.0); Mean Corpuscular Volume 83.4 fL (81-99); Mean Platelet Vol. 10.2 fl (6.2-12.0); Monocyte% 11.9 % (0-10); NRBC Flagged by Analyzer 0 % (0-5); Neutrophil # 6.45 X10^3/uL (2.7-7.7); Neutrophil % 70.1 % (47-70); Platelet Count 279 K/mm3 (150-450); RBC Distribution Width CV 17.5 % (11.6-14.6); RBC Distribution Width SD 53.8 fl (35.1-43.9); Red Blood Count 3.56 M/mm3 (4.2-5.4); White Blood Count 9.2 K/mm3 (4.4-11.0)
[2024-09-05 08:22] LABS: Anion Gap 7 (5-15); BUN 77 mg/dL (7-18); BUN/Creat Ratio 26.9 RATIO (10-20); Chloride 112 mmol/L (98-107); Creatinine, Serum 2.86 mg/dL (0.55-1.02); EST Glomerular Filtration Rate 17 mL/min (>60); Est Glom Filt Rate - Afr Amer 21 mL/min (>60); Glucose 129 mg/dL (74-106); Potassium 4.2 mmol/L (3.5-5.1); Sodium Level 139 mmol/L (136-145)
== END ==
LOC: OLS.WHLTCC 05:00
PROVIDERS: PCP Internal Medicine; Visit Provider Internal Medicine
DX: E88.09 Other disorders of plasma-protein metabolism, not elsewhere classified (principal); N39.0 Urinary tract infection, site not specified
CPT/HCPCS: 36415; 80048; 85025

== ENCOUNTER → 2024-09-12 | Outpatient (REF) | payer MEDICARE, SELFPAY ==
[2024-09-12 07:51] LABS: Absolute Lymphocyte Count 1.35 X10^3/uL (0.83-4.51); Absolute Neutrophil Count 6.7 X10^3/uL (2.0-7.7); Basophil# 0.06 X10^3/uL; Basophil% 0.6 % (0-1); Eosinophil# 0.37 X10^3/uL; Eosinophils% 3.7 % (0-5); Hematocrit 28.3 % (37-47); Hemoglobin 8.7 g/dL (12.0-15.0); Lymphocyte # 1.35 X10^3/ul (0.83-4.51); Lymphocyte % 13.5 % (19-41); Mean Corp Hgb Conc 30.7 g/dL (32-36); Mean Corpuscular Hgb 25.8 pg (27.0-32.0); Mean Platelet Vol. 9.7 fl (6.2-12.0); NRBC Flagged by Analyzer 0 % (0-5); Neutrophil # 6.69 X10^3/uL (2.7-7.7); Neutrophil % 67.1 % (47-70); Platelet Count 219 K/mm3 (150-450); RBC Distribution Width CV 17.6 % (11.6-14.6); RBC Distribution Width SD 54.3 fl (35.1-43.9); Red Blood Count 3.37 M/mm3 (4.2-5.4)
[2024-09-12 08:10] LABS: AST(SGOT) 13 U/L (15-37); Alanine Aminotransfer ALT/SGPT 12 U/L (13-56); Albumin, Serum 2.9 g/dL (3.2-5.0); Alkaline Phosphatase 59 U/L (45-117); Anion Gap 7 (5-15); BUN 71 mg/dL (7-18); BUN/Creat Ratio 22.5 RATIO (10-20); Bilirubin, Direct 0.13 mg/dL (0.00-0.30); Calcium,Total 8.5 mg/dL (8.5-10.1); Chloride 114 mmol/L (98-107); Creatinine, Serum 3.15 mg/dL (0.55-1.02); EST Glomerular Filtration Rate 15 mL/min (>60); Est Glom Filt Rate - Afr Amer 18 mL/min (>60); Globulin 3.2 g/dL (2.2-4.2); Glucose 163 mg/dL (74-106); Potassium 4.2 mmol/L (3.5-5.1); Protein, Total 6.1 g/dL (6.4-8.2); Sodium Level 140 mmol/L (136-145)
[2024-09-12 10:02] LABS: Hemoglobin A1c 7.4 % (3.8-5.6)
[2024-09-12 12:26] LABS: Vitamin D,25 Hydroxy 56.8 ng/mL
== END ==
LOC: OLS.WHLTCC 05:00
PROVIDERS: PCP Internal Medicine; Visit Provider Internal Medicine
DX: E88.09 Other disorders of plasma-protein metabolism, not elsewhere classified (principal); N39.0 Urinary tract infection, site not specified; M62.562 Muscle wasting and atrophy, not elsewhere classified, left lower leg
CPT/HCPCS: 36415; 80048; 80076; 82306; 83036; 85025

== ENCOUNTER → 2024-09-16 | Outpatient (REF) | payer MEDICARE, SELFPAY ==
[2024-09-16 07:13] LABS: Anion Gap 5 (5-15); BUN 64 mg/dL (7-18); BUN/Creat Ratio 23.5 RATIO (10-20); Calcium,Total 8.4 mg/dL (8.5-10.1); Chloride 116 mmol/L (98-107); Creatinine, Serum 2.72 mg/dL (0.55-1.02); EST Glomerular Filtration Rate 18 mL/min (>60); Est Glom Filt Rate - Afr Amer 22 mL/min (>60); Glucose 122 mg/dL (74-106); Potassium 4.3 mmol/L (3.5-5.1); Sodium Level 141 mmol/L (136-145)
== END ==
LOC: OLS.WHLTCC 05:00
PROVIDERS: PCP Internal Medicine; Visit Provider Internal Medicine
DX: R48.8 Other symbolic dysfunctions (principal); N39.0 Urinary tract infection, site not specified
CPT/HCPCS: 36415; 80048

== ENCOUNTER → 2024-09-19 | Outpatient (REF) | payer MEDICARE, SELFPAY ==
[2024-09-19 08:49] LABS: Absolute Lymphocyte Count 1.44 X10^3/uL (0.83-4.51); Absolute Neutrophil Count 6.4 X10^3/uL (2.0-7.7); Basophil# 0.04 X10^3/uL; Basophil% 0.4 % (0-1); Eosinophil# 0.37 X10^3/uL; Eosinophils% 3.8 % (0-5); Hematocrit 26.1 % (37-47); Hemoglobin 8.2 g/dL (12.0-15.0); Lymphocyte # 1.44 X10^3/ul (0.83-4.51); Lymphocyte % 14.7 % (19-41); Mean Corp Hgb Conc 31.4 g/dL (32-36); Mean Corpuscular Hgb 26.3 pg (27.0-32.0); Mean Corpuscular Volume 83.7 fL (81-99); Mean Platelet Vol. 9.8 fl (6.2-12.0); Monocyte# 1.45 X10^3/uL; Monocyte% 14.8 % (0-10); NRBC Flagged by Analyzer 0 % (0-5); Neutrophil # 6.37 X10^3/uL (2.7-7.7); Neutrophil % 65.3 % (47-70); Platelet Count 215 K/mm3 (150-450); RBC Distribution Width CV 18.1 % (11.6-14.6); Red Blood Count 3.12 M/mm3 (4.2-5.4); White Blood Count 9.8 K/mm3 (4.4-11.0)
[2024-09-19 09:50] LABS: Anion Gap 6 (5-15); BUN 72 mg/dL (7-18); BUN/Creat Ratio 25.4 RATIO (10-20); Calcium,Total 8.2 mg/dL (8.5-10.1); Chloride 117 mmol/L (98-107); Creatinine, Serum 2.84 mg/dL (0.55-1.02); EST Glomerular Filtration Rate 17 mL/min (>60); Est Glom Filt Rate - Afr Amer 21 mL/min (>60); Glucose 133 mg/dL (74-106); Potassium 4.4 mmol/L (3.5-5.1); Sodium Level 142 mmol/L (136-145)
== END ==
LOC: OLS.WHLTCC 05:00
PROVIDERS: PCP Internal Medicine; Visit Provider Internal Medicine
DX: E88.09 Other disorders of plasma-protein metabolism, not elsewhere classified (principal)
CPT/HCPCS: 36415; 80048; 85025

== ENCOUNTER → 2024-10-03 | Outpatient (CLI) | payer MEDICARE, SELFPAY ==
[2024-10-03 16:45] LABS: Basophil# 0.05 X10^3/uL; Basophil% 0.4 % (0-1); Eosinophil# 0.23 X10^3/uL; Eosinophils% 1.9 % (0-5); Hematocrit 29.2 % (37-47); Hemoglobin 8.9 g/dL (12.0-15.0); Lymphocyte % 6.5 % (19-41); Mean Corp Hgb Conc 30.5 g/dL (32-36); Mean Corpuscular Volume 85.4 fL (81-99); Mean Platelet Vol. 10.4 fl (6.2-12.0); Monocyte# 1.22 X10^3/uL; Monocyte% 9.8 % (0-10); NRBC Flagged by Analyzer 0 % (0-5); Neutrophil % 80.7 % (47-70); Platelet Count 265 K/mm3 (150-450); RBC Distribution Width CV 17.7 % (11.6-14.6); RBC Distribution Width SD 54.9 fl (35.1-43.9); Red Blood Count 3.42 M/mm3 (4.2-5.4); White Blood Count 12.4 K/mm3 (4.4-11.0)
== END | disposition home or self-care (01) ==
PROVIDERS: PCP Internal Medicine; Referring Provider Nurse Practitioner Acute Care; Visit Provider Nurse Practitioner Acute Care
DX: D64.9 Anemia, unspecified (principal)
CPT/HCPCS: 36415; 85025

== ENCOUNTER → 2024-10-05 | Outpatient (CLI) | payer MEDICARE, SELFPAY | END | disposition home or self-care (01) | LOC: LABSPEC 08:47 | PROVIDERS: PCP Internal Medicine; Referring Provider Nurse Practitioner Acute Care; Visit Provider Nurse Practitioner Acute Care | DX: K58.9 Irritable bowel syndrome, unspecified (principal); R19.7 Diarrhea, unspecified | CPT/HCPCS: 87493; 87506 ==

== ENCOUNTER → 2025-01-07 | Outpatient (CLI) | payer MEDICARE, SELFPAY ==
[2025-01-07 12:50] LABS: Absolute Lymphocyte Count 0.89 X10^3/uL (0.83-4.51); Absolute Neutrophil Count 10.7 X10^3/uL (2.0-7.7); Basophil# 0.06 X10^3/uL; Basophil% 0.4 % (0-1); Eosinophil# 0.36 X10^3/uL; Eosinophils% 2.7 % (0-5); Hematocrit 32.2 % (37-47); Hemoglobin 10.1 g/dL (12.0-15.0); Lymphocyte # 0.89 X10^3/ul (0.83-4.51); Lymphocyte % 6.6 % (19-41); Mean Corp Hgb Conc 31.4 g/dL (32-36); Mean Corpuscular Hgb 26.7 pg (27.0-32.0); Mean Corpuscular Volume 85.2 fL (81-99); Mean Platelet Vol. 9.8 fl (6.2-12.0); Monocyte# 1.41 X10^3/uL; Monocyte% 10.5 % (0-10); NRBC Flagged by Analyzer 0 % (0-5); Neutrophil # 10.68 X10^3/uL (2.7-7.7); Neutrophil % 79.3 % (47-70); Platelet Count 319 K/mm3 (150-450); RBC Distribution Width CV 14.5 % (11.6-14.6); RBC Distribution Width SD 45.4 fl (35.1-43.9); Red Blood Count 3.78 M/mm3 (4.2-5.4); White Blood Count 13.5 K/mm3 (4.4-11.0)
[2025-01-07 13:18] LABS: Iron 50 ug/dL (50-170); Iron Binding Capacity,Total 249 ug/dL (250-450); Iron Binding Capacity,Unsat 199 ug/dL (228-428)
== END | disposition home or self-care (01) ==
LOC: LAB 11:45
PROVIDERS: PCP Internal Medicine; Referring Provider Nurse Practitioner Acute Care; Visit Provider Nurse Practitioner Acute Care
DX: D64.9 Anemia, unspecified (principal); R19.7 Diarrhea, unspecified
CPT/HCPCS: 36415; 83540; 83550; 85025

== ENCOUNTER 2025-01-08 19:16 | Inpatient (IN) | payer MEDICARE, SELFPAY ==
[2025-01-08] VITALS (9 sets, daily range): BP systolic 93–189; BP diastolic 47–84; PULSE 73–87; RESP 18–20; TEMP 36.2–37.2; O2SAT 88–100; BMI 44.4; BMI 43.7
--- NOTE | 2025-01-08 20:32 | EKG12_ITS ---
Test Reason : WEAKNESS Blood Pressure : */* mmHG Vent. Rate : 70 BPM Atrial Rate : 70 BPM P-R Int : 200 ms QRS Dur : 96 ms QT Int : 298 ms P-R-T Axes : 56 -28 121 degrees QTcB Int : 321 ms Sinus rhythm with Premature atrial complexes Left ventricular hypertrophy with repolarization abnormality ( R in aVL ) Abnormal ECG Confirmed by NEERAJ PAREDES, PATI ([id number]), editor & co founder EFRA RUIZ ([id number]) on 01/13/2025 11:01:32 AM Referred By: Confirmed By: PATI PICKARD MD
[2025-01-08] MEDS: 0.9% Normal Saline (1000mL) 1,000 ML 1000 ML IV (20:42)
--- NOTE | 2025-01-08 20:43 | EX.ED.DYSGE1 ---
HPI History of Present Illness Chief Complaint: Weakness Narrative Narrative: 79-year-old female, multiple medical problems, usually walks with a walker presents with generalized weakness of her bilateral lower extremities that she experienced approximately 4 hours ago. She states she was at home, and could not find her pills. She attempted to look in her vehicle, and was walking outside with her walker. She has 1 step that she has to,. She states that when she stepped up she could not bring her other foot up. She felt weak in the legs. She states that she could not move her legs to make that happen. She denies any recent fevers or chills. She has had a cough for the last 3 weeks that she is getting over the virus that is going around. She had to have her neighbor help her into the house. They stated to her that she was unable to get into the house that she would have to go to the hospital. As she was so weak and it took multiple people to get her around, she pressed her pendant button. EMS was called and she had difficulty getting onto the cot. She states her symptoms have improved but is concerned because her blood sugars have been high. Recently her primary care provider took her off some of her medications for diabetes. [facility] Medical History Anemia CKD (chronic kidney disease) Microscopic colitis Osteoarthritis History of irritable colon Essential hypertension Dyslipidemia Anxiety Diabetes Kidney disease GI bleed Non-smoker Upper GI bleed Duodenal ulcer Candidiasis of breast History of anemia History of hypertension History of chronic kidney disease History of hyperlipidemia History of diabetes insipidus Candidal intertrigo Stage 3b chronic kidney disease (CKD) Osteoporosis Hyperlipidemia Anemia Hypertension Lymphedema Morbid obesity History of gastroesophageal reflux (GERD) Type II diabetes mellitus Home Medications ?Medication ?Instructions ?Recorded ?Last Taken ?Type folic acid 1 mg tablet 1 mg PO DAILY@0800 SUPPLEMENT 01/21/17 06/04/24 History calcium 600 mg (as 1 tab PO BID SUPPLEMENT 03/05/19 04/08/24 History carbonate)-vitamin D3 20 mcg (800 unit) tablet (Caltrate with Vitamin D3) citalopram 20 mg tablet 20 mg PO QHS mental health 01/22/22 06/03/24 History pentoxifylline 400 mg 400 mg PO DAILY 02/15/24 04/08/24 History tablet,extended release vitamin E 268 mg (400 unit) capsule 268 mg PO DAILY 02/15/24 04/08/24 History amlodipine 5 mg tablet 5 mg PO DAILY 06/05/24 06/04/24 History ferrous sulfate 325 mg (65 mg 325 mg PO DAILY 06/05/24 06/04/24 History iron) tablet (FeroSul) insulin glargine 100 unit/mL (3 8 unit subcut QHS 06/05/24 06/03/24 History mL) subcutaneous pen (Lantus Solostar U-100 Insulin) carvedilol 12.5 mg tablet (Coreg) 12.5 mg PO BID 10/03/24 Unknown History budesonide 3 mg 3 mg PO .COMPLEX #90 ea 01/08/25 Unknown Rx capsule,delayed,extended release hydralazine 25 mg tablet 25 mg PO TID 01/08/25 Unknown History Allergy/AdvReac Type Severity Reaction Status Date / Time chlorhexidine Allergy Unknown Verified 01/08/25 19:18 Iodinated Contrast Media Allergy Other Verified 01/08/25 19:18 (CONTRASTS) iodine Allergy Unknown Verified 01/08/25 19:18 latex Allergy Rash Verified 01/08/25 19:18 Family History Other Diabetes Surgical History History of elbow surgery History of tonsillectomy and adenoidectomy 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 Social History household members: none Smoking Status: Never smoker alcohol intake: never substance use type: does not use ROS ROS ED ROS Narrative Review of systems positive for generalized weakness of bilateral lower extremities. Cough x 3 weeks. No recent fevers or chills, no dysuria or hematuria but urinary frequency which she explains has been drinking a lot of water. No falls. EXAM Physical Exam Narrative Exam Narrative: Afebrile. Vital signs noted. Nontoxic-appearing. Cardiovascular examination reveals a regular rate and rhythm. Lungs are clear to auscultation bilaterally. The abdomen is soft, nontender with positive bowel sounds. No guarding or rebound. Chronic lymphedema bilateral lower extremities. Neuro vastly intact and able to raise legs off bed without difficulty. Able to flex and dorsiflex feet. Neurological examination is nonfocal and nonlateralizing. Const Vital Signs: 01/08/25 19:18 01/08/25 19:20 01/08/25 19:49 Temperature 97.2 F L 97.2 F L Temperature Source Temporal Oral Pulse Rate 87 87 Respiratory Rate 18 18 Respiratory Effort Normal Non-Labored Respiratory Pattern Normal Blood Pressure 93/54 L 163/66 H Blood Pressure Mean 67 98 Pulse Ox 100 100 Oxygen Delivery Method Room Air Room Air Oxygen Flow Rate (L/min) 01/08/25 19:55 01/08/25 20:20 01/08/25 21:00 Temperature 97.8 F 98.9 F Temperature Source Oral Oral Pulse Rate 74 82 Respiratory Rate 18 18 20 H Respiratory Effort Respiratory Pattern Blood Pressure 147/47 H 189/73 H Blood Pressure Mean 80 111 Pulse Ox 88 94 95 Oxygen Delivery Method Room Air Nasal Cannula Nasal Cannula Oxygen Flow Rate (L/min) 1 1 01/08/25 21:02 01/08/25 22:00 01/08/25 22:00 Temperature 98.9 F 98.3 F 98.3 F Temperature Source Oral Oral Pulse Rate 82 86 78 Respiratory Rate 20 H 18 18 Respiratory Effort Respiratory Pattern Blood Pressure 189/73 H 185/75 H 180/84 H Blood Pressure Mean 111 111 116 Pulse Ox 95 95 96 Oxygen Delivery Method Nasal Cannula Nasal Cannula Oxygen Flow Rate (L/min) 1.5 1 MDM MDM MDM Narrative Medical decision making narrative: Differential diagnosis includes but not limited to debility versus generalized weakness versus infectious cause versus electrolyte abnormality. She will be screened for pneumonia as well as UTI. Although it states that she was not 100% on room air, she is now on nasal cannula oxygen. Chest x-ray 1 view was obtained and interpreted by myself independently as no pneumonia, no pneumothorax. I reviewed the radiology report which confirms my independent interpretation. EKG was obtained as well and interpreted by myself as normal sinus rhythm with PACs at [address]pm but no acute [address] changes. No STEMI. I reviewed her laboratory work and she has elevated white count of 15.0 which I think is nonspecific, hemoglobin stable at 9.9, platelet count normal at 294. Potassium is low at 2.4. This was replaced orally and intravenously through a peripheral line. I checked a magnesium afterwards and it is normal at 1.9. Chloride is low at 94. BUN of 28 and creatinine 2.72, but when compared to prior laboratories she has chronic kidney disease. LFTs are grossly unremarkable. Urinalysis is positive for UTI with 50-100 WBCs. She will be started on Rocephin. Urine culture will also be obtained. She does have elevated blood sugar on her electrolyte panel high at 469. Her anion gap is slightly elevated at 16. While I doubt DKA, I discussed patient with the hospitalist who did add an ABG and beta hydroxybutyrate. At this point in time, given her hypokalemia, and although her bilateral lower extremity weakness is passed, it may have been secondary to hypokalemia that was profound, she will be admitted to the hospital. I informed her niece of this at her request. Disposition is admit in stable condition. History & Record Review Discussion w/independent historian: Patient Additional record(s) reviewed:: Prior labs Lab Data Attestation: I reviewed the patient's lab results. Labs: Laboratory Results - last 24 hr 01/08/25 01/08/25 20:08 20:37 WBC 15.0 H RBC 3.64 L Hgb 9.9 L Hct 31.2 L MCV 85.7 MCH 27.2 MCHC 31.7 L RDW Std Deviation 46.3 H RDW Coeff of [place] 14.6 Plt Count 294 MPV 10.3 Immature Gran % (Auto) 0.700 Neut % (Auto) 82.2 H Lymph % (Auto) 4.3 L [place] % (Auto) 9.8 Eos % (Auto) 2.5 Baso % (Auto) 0.5 Absolute Neuts (auto) 12.3 H Absolute Lymphs (auto) 0.65 L Nucleated RBC % 0 Sodium 136 Potassium 2.4 L* Chloride 94 L Carbon Dioxide 26.2 Anion Gap 16 H BUN 28 H Creatinine 2.72 H Estim Creat Clear Calc 19.19 L Est GFR (MDRD) Non-Af 17 L BUN/Creatinine Ratio 10.2 Glucose 469 H* Calcium 9.2 Magnesium 1.9 Total Bilirubin 0.96 AST 14 ALT 12 Alkaline Phosphatase 89 Total Protein 6.0 Albumin 3.2 L Globulin 2.8 Albumin/Globulin Ratio 1.2 Urine Color Yellow Urine Clarity Sl. Cloudy Urine pH 5.0 Ur Specific [place] 1.010 Urine Protein 30 H Urine Glucose (UA) 1000 H Urine Ketones Negative Urine Occult Blood 25 H Urine Nitrite Negative Urine Bilirubin Negative Urine Urobilinogen Normal Ur Leukocyte Esterase 500 H Urine RBC 0-5 SEEN Urine WBC 50-100 SEEN Ur Squamous Epith Cells 0-5 SEEN Urine Bacteria 2+ Urine Mucus 0 SEEN Radiography Chest X-Ray - ED: 1 View, Read by ED Physician and Read by Radiologist Diagnostic Testing: Clinical Impression(s) from Imaging Studies Chest X-Ray 01/08/25 20:45 IMPRESSION: No focal airspace abnormality. Reading Location: [facility] Discharge Plan Dx/Rx/DC Orders Clinical Impression: Bilateral leg weakness, Hypokalemia, Hyperglycemia Disposition Disposition: Acute Care Hospital [facility]
--- NOTE | 2025-01-08 20:45 | RAD_ITS ---
PROCEDURE: Chest radiograph REASON FOR EXAM: Chest pain, coronary artery disease TECHNIQUE: Frontal view of the chest. COMPARISON: None. FINDINGS: Mild cardiomegaly. Lungs are clear. No sizable pneumothorax. RAD/Chest 1 View (Portable) IMPRESSION: No focal airspace abnormality. Reading Location: [facility]
[2025-01-08 20:48] LABS: Mucous, Urine 0 SEEN /hpf (<or=2+)
[2025-01-08 20:52] LABS: Absolute Lymphocyte Count 0.65 X10^3/uL (0.83-4.51); Absolute Neutrophil Count 12.3 X10^3/uL (2.0-7.7); Basophil# 0.08 X10^3/uL; Basophil% 0.5 % (0-1); Eosinophil# 0.38 X10^3/uL; Eosinophils% 2.5 % (0-5); Hematocrit 31.2 % (37-47); Hemoglobin 9.9 g/dL (12.0-15.0); Lymphocyte # 0.65 X10^3/ul (0.83-4.51); Lymphocyte % 4.3 % (19-41); Mean Corp Hgb Conc 31.7 g/dL (32-36); Mean Corpuscular Hgb 27.2 pg (27.0-32.0); Mean Corpuscular Volume 85.7 fL (81-99); Mean Platelet Vol. 10.3 fl (6.2-12.0); Monocyte# 1.47 X10^3/uL; Monocyte% 9.8 % (0-10); NRBC Flagged by Analyzer 0 % (0-5); Neutrophil # 12.29 X10^3/uL (2.7-7.7); Neutrophil % 82.2 % (47-70); Platelet Count 294 K/mm3 (150-450); RBC Distribution Width CV 14.6 % (11.6-14.6); RBC Distribution Width SD 46.3 fl (35.1-43.9); Red Blood Count 3.64 M/mm3 (4.2-5.4)
[2025-01-08 21:19] LABS: Color, Urine Yellow (Yellow); Glucose, Dipstick 1000 mg/dl (Normal); Ketone-Dipstick Negative (Negative); Leukocyte Esterase-Dipstick 500 /ul (Negative); Nitrite-Dipstick Negative (Negative); Occult Blood-Urine 25 /ul (Negative); Protein-Dipstick 30 mg/dl (Negative); Urine Bilirubin Dipstick Negative (Negative); Urine Clarity Sl. Cloudy (Clear); Urine Urobilinogen Normal (Normal)
[2025-01-08 21:31] LABS: White Blood Cells 50-100 SEEN /hpf (0-5)
[2025-01-08 21:32] LABS: Bacteria 2+ /hpf (None Seen); Red Blood Cells-Urine 0-5 SEEN /hpf (0-5); Squamous Epithelial Cells - UA 0-5 SEEN /hpf (5-10)
[2025-01-08 21:47] LABS: ALB/GLOB Ratio 1.2 RATIO (0.9-2.4); AST(SGOT) 14 U/L (<=31); Alanine Aminotransfer ALT/SGPT 12 U/L (<=34); Albumin, Serum 3.2 g/dL (3.4-4.8); Alkaline Phosphatase 89 U/L (35-104); Anion Gap 16 (5-15); BUN 28 mg/dL (4-19); BUN/Creat Ratio 10.2 RATIO (10-20); Calcium,Total 9.2 mg/dL (7.6-11.0); Carbon Dioxide 26.2 mmol/L (21.0-32.0); Chloride 94 mmol/L (98-108); Creatinine, Serum 2.72 mg/dL (0.70-1.20); EST Glomerular Filtration Rate 17 (>60); Estimated Creatinine Clearance 19.19 ml/min (50-250); Globulin 2.8 g/dL (2.2-4.2); Glucose 469 mg/dL (70-99); Potassium 2.4 mmol/L (3.3-5.1); Sodium Level 136 mmol/L (133-145); Total Bilirubin 0.96 mg/dL (0.00-1.30)
--- NOTE | 2025-01-08 22:27 | HP.PCM.HOS_ITS ---
HPI - General General Date of Admission: 01/08/25 Date of Service: 01/08/25 Chief Complaint: weakness HPI Narrative AZUL NAVARRETE, is a 79 F with pmhx of T2DM on insulin, CKDIII pt of Dr. Robertson, chronic lymphedema, HTN, who presents to the ER with weakness. The patient was walking from her car to her house, had one step to go up, and was unable to get up the step because both her legs suddenly felt too weak to lift. Her neighbors came to help her but could not get her into the house. They got her a chair to sit in and they called the squad who brought her to the ER for weakness. In the ER she was found to have elevated BP at 180/84, leukocytosis at 15k, Low potassium at 2.4, elevated blood glucose at 469, gap 16, UA c/w UTI. ABG and Acetone are pending.Notably pt saw PCP about 4 weeks ago and was taken off of medications including januvia, losartan, furosemide, potassium, crestor, and alendronate. She was given rocephin and potassium in the ER. Pt notably with the past week having polydipsia and polyuria, denies dysuria or fever. [facility] Medical History Anemia CKD (chronic kidney disease) Microscopic colitis Osteoarthritis History of irritable colon Essential hypertension Dyslipidemia Anxiety Diabetes Kidney disease GI bleed Non-smoker Upper GI bleed Duodenal ulcer Candidiasis of breast History of anemia History of hypertension History of chronic kidney disease History of hyperlipidemia History of diabetes insipidus Candidal intertrigo Stage 3b chronic kidney disease (CKD) Osteoporosis Hyperlipidemia Anemia Hypertension Lymphedema Morbid obesity History of gastroesophageal reflux (GERD) Type II diabetes mellitus Home Medications ?Medication ?Instructions ?Recorded ?Last Taken ?Type folic acid 1 mg tablet 1 mg PO DAILY@0800 SUPPLEMEN T 01/21/17 06/04/24 History calcium 600 mg (as 1 tab PO BID SUPPLEMENT 05/1704/08/24 History carbonate)-vitamin D3 20 mcg (800 unit) tablet (Caltrate with Vitamin D3) citalopram 20 mg tablet 20 mg PO QHS mental health 0 01/22/22 06/03/24 History pentoxifylline 400 mg 400 mg PO DAILY 02/15/2408/22 History tablet,extended release vitamin E 268 mg (400 unit) capsule 268 mg PO DAILY 04/08/24 History amlodipine 5 mg tablet 5 mg PO DAILY 06/05/2406/04 History ferrous sulfate 325 mg (65 mg 325 mg PO DAILY 06/05/24 06/04/24 History iron) tablet (FeroSul) insulin glargine 100 unit/mL (3 8 unit subcut QHS 05/2206/03/24 History mL) subcutaneous pen (Lantus Solostar U-100 Insulin) carvedilol 12.5 mg tablet (Coreg) 12.5 mg PO BID 10/03 Unknown History budesonide 3 mg 3 mg PO .COMPLEX #90 ea 12/28 12/24 Unknown Rx capsule,delayed,extended release hydralazine 25 mg tablet 25 mg PO TID 01/08/25 Unknow n History Allergy/AdvReac Type Severity Reaction Status Date / Time chlorhexidine Allergy Unknown Verified 01/08/25 19:18 Iodinated Contrast Media Allergy Other Verified 01/08/25 19:18 (CONTRASTS) iodine Allergy Unknown Verified 01/08/25 19:18 latex Allergy Rash Verified 01/08/25 19:18 Family History Other Diabetes Surgical History History of elbow surgery History of tonsillectomy and adenoidectomy 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 Social History household members: none Smoking Status: Never smoker alcohol intake: never substance use type: does not use ROS Constitutional Constitutional: Denies anorexia, fatigue or fever(s) Eyes Eyes: Denies blurry vision ENT HEENT: Denies abnormal hearing, headache(s) or nasal congestion Cardiovascular Cardiovascular: Reports edema; Denies chest pain or lightheadedness Respiratory/Chest Respiratory/Chest: Reports cough; Denies dyspnea or productive cough Gastrointestinal Gastrointestinal: Denies abdominal pain, diarrhea or nausea Genitourinary Genitourinary: Denies burning urination or difficulty urinating Musculoskeletal Musculoskeletal: Denies arthralgias or back pain Neurologic Neurologic: Denies abnormal gait Psychiatric Psychiatric: Reports depression; Denies anxiety Endocrine Endocrinology: Denies change in body appearance Hematologic/Lymphatic Hematologic/Lymphatic: Reports anemia Allergic/Immunologic Allergic/Immunologic: Denies rhinitis Vital Signs Vital Signs Vital Signs: 01/08/25 19:18 01/08/25 19:20 01/08/25 19:49 Temperature 97.2 F L 97.2 F L Temperature Source Temporal Oral Pulse Rate 87 87 Respiratory Rate 18 18 Respiratory Effort Normal Non-Labored Respiratory Pattern Normal Blood Pressure 93/54 L 163/66 H Blood Pressure Mean 67 98 Pulse Ox 100 100 Oxygen Delivery Method Room Air Room Air Oxygen Flow Rate (L/min) 01/08/25 19:55 01/08/25 20:20 01/08/25 21:00 Temperature 97.8 F 98.9 F Temperature Source Oral Oral Pulse Rate 74 82 Respiratory Rate 18 18 20 H Respiratory Effort Respiratory Pattern Blood Pressure 147/47 H 189/73 H Blood Pressure Mean 80 111 Pulse Ox 88 94 95 Oxygen Delivery Method Room Air Nasal Cannula Nasal Cannula Oxygen Flow Rate (L/min) 1 1 01/08/25 21:02 01/08/25 22:00 01/08/25 22:00 Temperature 98.9 F 98.3 F 98.3 F Temperature Source Oral Oral Pulse Rate 82 86 78 Respiratory Rate 20 H 18 18 Respiratory Effort Respiratory Pattern Blood Pressure 189/73 H 185/75 H 180/84 H Blood Pressure Mean 111 111 116 Pulse Ox 95 95 96 Oxygen Delivery Method Nasal Cannula Nasal Cannula Oxygen Flow Rate (L/min) 1.5 1 Weight Weight: 106.6 kg Body Mass Index (BMI) 44.4 Physical Exam Const alert and oriented x3 Constitutional Narrative: morbidly obese General Appearance: cooperative HEENT normocephalic and head/scalp atraumatic Eyes PERRL Neck no lymphadenopathy Resp normal respiratory effort, no retractions, no use of accessory muscles and clear to auscultation bilaterally Cardio regular rate, regular rhythm and S1 normal heart sound GI normal to inspection, nondistended, normoactive bowel sounds, soft to palpation, non-tender and non-distended Extremity Extremity Narrative: BL lymphedema Skin Skin Narrative: no rashes/lesions Neuro oriented x3 Psych affect normal Results Lab / Micro Data 01/08/25 20:08 01/08/25 20:08 Labs: Laboratory Results - last 24 hr 01/08/25 20:08: WBC 15.0 H, RBC 3.64 L, Hgb 9.9 L, Hct 31.2 L, MCV 85.7, MCH 27.2, MCHC 31.7 L, RDW Std Deviation 46.3 H, RDW Coeff of [place] 14.6, Plt Count 294, MPV 10.3, Immature Gran % (Auto) 0.700, Neut % (Auto) 82.2 H, Lymph % (Auto) 4.3 L, [place] % (Auto) 9.8, Eos % (Auto) 2.5, Baso % (Auto) 0.5, Absolute Neuts (auto) 12.3 H, Absolute Lymphs (auto) 0.65 L, Nucleated RBC % 0, Sodium 136, Potassium 2.4 L*, Chloride 94 L, Carbon Dioxide 26.2, Anion Gap 16 H, BUN 28 H, Creatinine 2.72 H, Estim Creat Clear Calc 19.19 L, Est GFR (MDRD) Non-Af 17 L, BUN/Creatinine Ratio 10.2, Glucose 469 H*, Calcium 9.2, Total Bilirubin 0.96, AST 14, ALT 12, Alkaline Phosphatase 89, Total Protein 6.0, Albumin 3.2 L, Globulin 2.8, Albumin/Globulin Ratio 1.2 01/08/25 20:37: Urine Color Yellow, Urine Clarity Sl. Cloudy, Urine pH 5.0, Ur Specific [place] 1.010, Urine Protein 30 H, Urine Glucose (UA) 1000 H, Urine Ketones Negative, Urine Occult Blood 25 H, Urine Nitrite Negative, Urine Bilirubin Negative, Urine Urobilinogen Normal, Ur Leukocyte Esterase 500 H, Urine RBC 0-5 SEEN, Urine WBC 50-100 SEEN, Ur Squamous Epith Cells 0-5 SEEN, Urine Bacteria 2+, Urine Mucus 0 SEEN Micro: Microbiology 01/08/25 20:40 Mucosa - Nose SARS-CoV-2, Influenza & RSV (PCR) - Final Imaging Radiology Impression Chest X-Ray 01/08/25 20:45 IMPRESSION: No focal airspace abnormality. Reading [facility] Assessment & Plan Assessment/Plan (1) Acute UTI: PLAN: 1. Acute UTI with leukocytosis - increased frequency but no lorenzo dysuria. UA c/w acute UTI and likely 2/2 markedly elevated glucose. received rocephin in ER, will start zosyn, follow urine cultures. guevara in place. 2. T2 DM with Hyperglycemia - with elevated anion gap 16. hydroxybuturate neg, abg without acidosis. resume home insulin with sliding scale coverage. likely needs home insulin dose increased. recently PCP stopped januvia. 3. Worsening of chronic debility likely 2/2 above. PTOT evals ordered. Pt lives alone and had difficulty getting into house today. May need additional therapy at discharge. 4. CKDIII, hypokalemia - does not appear to be significantly worse than baseline. potassium replaced in ER, repeat BMP in AM. pts home potassium was recently discontinued, may need resumed at discharge. Pt of Dr. Robertson. 5. HTN - poorly controlled - resume home meds, notably pt sates lisinopril, furosemide recently discontinued by PCP. Consider resumption of lisinopril. 6. Chronic anemia - does not appear to be below baseline. continue home iron. 7. Chronic lymphedema BL LE - recently taken off lasix. DVT ppx: heparin This patient was seen by Carlos Dumont PA-C under the supervision of Doctor Charles.
[2025-01-08 22:29] LABS: Magnesium 1.9 mg/dL (1.5-2.2)
[2025-01-08] MEDS: Potassium Chloride Oral Tablet 20 MEQ 40 MEQ PO (22:34)
[2025-01-08] MEDS: Ceftriaxone 1 GM/50 ML BAG IV (22:34)
[2025-01-08 22:40] LABS: Allen Test Positive; Base Excess 5 mmol/L (-2 to +2); Bicarbonate 29.9 mmol/L (22-26); Blood Gas Specimen Type ART; Mode Not entered; O2 Delivery Device Cannula; PO2 70 mmHG (75-100); SITE L Radial; SO2 94 % (95-99); Total Carbon Dioxide 31 mmol/L; pCO2 48.3 mmHg (35-45)
[2025-01-08 22:49] LABS: BETA-HYDROXYBUTYRATE 0.3 mmol/L (0.0-0.3)
[2025-01-08] MEDS: KCL 40mEq in 0.9% NS 40 MEQ/1,000 ML IV.SOLN 250 MEQ IV (23:04)
[2025-01-08] MEDS: Insulin Glargine-YFGN 100 UNIT/ML Pen 8 UNIT SC (23:59)
[2025-01-09] VITALS (9 sets, daily range): BP systolic 114–140; BP diastolic 47–67; PULSE 61–67; RESP 18; TEMP 36.3–36.8; O2SAT 93–97
[2025-01-09] MEDS: Nystatin Powder 15gm Bottle 1 APPLIC TOPICAL ×4 (00:01→21:11)
[2025-01-09] MEDS: Menthol/Lanolin/Calamine/Znox 113 GM Tube 1 APPLIC TOPICAL ×3 (00:01→21:11)
[2025-01-09 00:40] LABS: Bedside Glucose 377 mg/dL (74-106)
[2025-01-09 05:18] LABS: Absolute Neutrophil Count 9.7 X10^3/uL (2.0-7.7); Basophil# 0.04 X10^3/uL; Basophil% 0.3 % (0-1); Eosinophil# 0.39 X10^3/uL; Eosinophils% 3.1 % (0-5); Hematocrit 28.6 % (37-47); Hemoglobin 9.1 g/dL (12.0-15.0); Lymphocyte % 8.6 % (19-41); Mean Corp Hgb Conc 31.8 g/dL (32-36); Mean Corpuscular Hgb 27.7 pg (27.0-32.0); Mean Corpuscular Volume 86.9 fL (81-99); Mean Platelet Vol. 10.2 fl (6.2-12.0); Monocyte# 1.53 X10^3/uL; NRBC Flagged by Analyzer 0 % (0-5); Neutrophil # 9.65 X10^3/uL (2.7-7.7); Neutrophil % 75.5 % (47-70); POSITIVE DIFFERENTIAL YES; Platelet Count 282 K/mm3 (150-450); RBC Distribution Width CV 14.7 % (11.6-14.6); RBC Distribution Width SD 47.1 fl (35.1-43.9); Red Blood Count 3.29 M/mm3 (4.2-5.4); White Blood Count 12.8 K/mm3 (4.4-11.0)
[2025-01-09 05:22] LABS: Differential Indicated SCAN CRITERIA MET
[2025-01-09] MEDS: Piperacil/Tazobactam 3.375 GM in 0.9% Normal Saline (50mL MB+) 50 ML IV ×3 (05:40→21:32)
[2025-01-09] MEDS: Heparin Injection (Vial) 5,000 UNIT/ML VIAL 5000 UNIT SC ×2 (05:41→13:17)
[2025-01-09] MEDS: 0.9% Saline Lock 10 ML Syringe IV ×2 (05:41→13:16)
[2025-01-09] MEDS: hydrALAZINE 25 MG Tablet PO ×3 (05:41→21:11)
[2025-01-09 06:04] LABS: Anion Gap 11 (5-15); BUN 25 mg/dL (4-19); BUN/Creat Ratio 9.8 RATIO (10-20); Calcium,Total 8.9 mg/dL (7.6-11.0); Chloride 103 mmol/L (98-108); Creatinine, Serum 2.53 mg/dL (0.70-1.20); EST Glomerular Filtration Rate 19 (>60); Estimated Creatinine Clearance 20.45 ml/min (50-250); Glucose 319 mg/dL (70-99); Potassium 2.8 mmol/L (3.3-5.1); Sodium Level 142 mmol/L (133-145)
[2025-01-09 06:26] LABS: Differential Comment SCANNED
[2025-01-09 06:27] LABS: Anisocytosis 1+; Bite Cell RARE; Ovalocyte 1+; Pathologist Review May foll; Platelet Estimate ADEQUATE (ADEQ)
[2025-01-09] MEDS: Insulin Lispro 100 UNIT/ML INSULN.PEN SC ×4 (06:39→21:12)
--- NOTE | 2025-01-09 08:10 | PCM.PN.HOSP ---
Reason for Visit Reason for Visit: Diagnoses Urinary tract infection, site not specified (01/08/25) Subjective Subjective Patient feeling much better, slowly improving weakness, was able to ambulate to the bathroom Objective Data Objective Data Vital Signs: Vital Signs Temp Pulse Resp BP Pulse Ox O2 Del Method O2 Flow Rate 98.0 F 67 18 120/67 97 Nasal Cannula 2 01/09/25 04:43 01/09/25 05:41 01/09/25 04:43 01/09/25 04:43 01/09/25 04:43 01/09/25 04:43 01/09/25 04:43 Oxygen Flow Rate (L/min) 2 Oxygen Delivery Method Nasal Cannula Weight: 105 kg Body Mass Index (BMI) 43.7 Intake & Output: Intake and Output for Last 24 Hours 01/07/25 01/08/25 01/09/25 23:59 23:59 23:59 Intake Total 1050 / 1170 1240 / 1240 Output Total 700 / 700 Balance 1050 / 470 540 / 540 Lab / Micro Data 01/09/25 04:22 01/09/25 04:22 Labs: Laboratory Results - last 24 hr 01/08/25 20:08: WBC 15.0 H, RBC 3.64 L, Hgb 9.9 L, Hct 31.2 L, MCV 85.7, MCH 27.2, MCHC 31.7 L, RDW Std Deviation 46.3 H, RDW Coeff of [place] 14.6, Plt Count 294, MPV 10.3, Immature Gran % (Auto) 0.700, Neut % (Auto) 82.2 H, Lymph % (Auto) 4.3 L, [place] % (Auto) 9.8, Eos % (Auto) 2.5, Baso % (Auto) 0.5, Absolute Neuts (auto) 12.3 H, Absolute Lymphs (auto) 0.65 L, Nucleated RBC % 0, Sodium 136, Potassium 2.4 L*, Chloride 94 L, Carbon Dioxide 26.2, Anion Gap 16 H, BUN 28 H, Creatinine 2.72 H, Estim Creat Clear Calc 19.19 L, Est GFR (MDRD) Non-Af 17 L, BUN/Creatinine Ratio 10.2, Glucose 469 H*, Calcium 9.2, Magnesium 1.9, Total Bilirubin 0.96, AST 14, ALT 12, Alkaline Phosphatase 89, Total Protein 6.0, Albumin 3.2 L, Globulin 2.8, Albumin/Globulin Ratio 1.2, b-Hydroxybutyric mmol/L 0.3 01/08/25 20:37: Urine Color Yellow, Urine Clarity Sl. Cloudy, Urine pH 5.0, Ur Specific [place] 1.010, Urine Protein 30 H, Urine Glucose (UA) 1000 H, Urine Ketones Negative, Urine Occult Blood 25 H, Urine Nitrite Negative, Urine Bilirubin Negative, Urine Urobilinogen Normal, Ur Leukocyte Esterase 500 H, Urine RBC 0-5 SEEN, Urine WBC 50-100 SEEN, Ur Squamous Epith Cells 0-5 SEEN, Urine Bacteria 2+, Urine Mucus 0 SEEN 01/08/25 23:57: POC Glucose 377 H 01/09/25 04:22: WBC 12.8 H, RBC 3.29 L, Hgb 9.1 L, Hct 28.6 L, MCV 86.9, MCH 27.7, MCHC 31.8 L, RDW Std Deviation 47.1 H, RDW Coeff of [place] 14.7 H, Plt Count 282, MPV 10.2, Immature Gran % (Auto) 0.500, Neut % (Auto) 75.5 H, Lymph % (Auto) 8.6 L, [place] % (Auto) 12.0 H, Eos % (Auto) 3.1, Baso % (Auto) 0.3, Absolute Neuts (auto) 9.7 H, Absolute Lymphs (auto) 1.10, Nucleated RBC % 0, Differential Comment SCANNED, Diff Path Review May foll, Platelet Estimate ADEQUATE, Anisocytosis 1+, Ovalocytes 1+, Bite Cells RARE, Sodium 142, Potassium 2.8 L, Chloride 103, Carbon Dioxide 28.0, Anion Gap 11, BUN 25 H, Creatinine 2.53 H, Estim Creat Clear Calc 20.45 L, Est GFR (MDRD) Non-Af 19 L, BUN/Creatinine Ratio 9.8 L, Glucose 319 H, Calcium 8.9 Micro: Microbiology 01/08/25 20:40 Mucosa - Nose SARS-CoV-2, Influenza & RSV (PCR) - Final ABG Data ABG results: ABG 01/08/25 22:36 Specimen Type ART Sample Site L Radial pH 7.40 Bicarbonate Actual 29.9 H Total CO2 31 Base Excess 5 H O2 Saturation 94 L O2 % 1.0 ABG pCO2 48.3 H ABG pO2 70 L Michael Test Positive O2 Delivery Device Cannula Vent Mode Not entered Radiography Diagnostic Testing: Radiology Impression Chest X-Ray 01/08/25 20:45 IMPRESSION: No focal airspace abnormality. Reading [facility] Physical Exam Narrative General: Alert, oriented to time and place, no apparent distress HEENT: Atraumatic, normocephalic Eyes: Anicteric, normal conjunctiva, extraocular movements grossly intact Neck: Supple Respiratory: Clear to auscultation bilaterally, normal respiratory effort Cardiovascular: Regular rate GI: Soft, nontender, nondistended Extremities: No edema Musculoskeletal: Moving all extremities Neuro: No overt focal neurological deficits Skin: No rashes appreciated Psych: Cooperative Assessment & Plan Assessment/Plan (1) Acute UTI: PLAN: Plan # Generalized weakness and debility secondary to presumed urinary tract infection -UA suspicious for UTI -Patient on empiric antibiotics -Awaiting urine culture -PT/OT -Patient reports she already feels she is improving #Type 2 diabetes mellitus -Glucose checks and sliding scale insulin -Patient is on glargine continued, if she remains persistently hyperglycemic despite sliding scale and home glargine after infection improves will need further adjustment # CKD stage IV -Appears to be at baseline -Avoid nephrotoxic agents -Daily BMPs -Follows with Dr. Robertson on an outpatient basis #Hypokalemia -Replace -Repeat in the AM # History of spurting duodenal ulcer -Anemic 05/20/2024 after an admission for OSVALDO, hemoglobin was 6.5 and she was transfused 3 units packed red blood cells and EGD revealed spurting duodenal ulcer -Follows with GI -Reportedly should be on PPI twice daily however do not see this on med list, will initiate # Microscopic colitis -Seen on colonoscopy -She is chronically on budesonide and follows with GI, was last seen 2 days ago -Will continue home budesonide #Depression/anxiety -Continue home medications #Hypertension -I do not see that patient is on any home medications, started on amlodipine here due to significantly elevated blood pressure, will continue #Morbid obesity -BMI documented as 43.7 kg/m? at time of admission -Complicates treatment, prognosis, outcomes -Recommend weight loss and lifestyle changes #DVT ppx: Heparin subcu Marjorie Gallardo MD Charges/Coding Visit Charges Inpatient E&M: 19647 Subs Hosp L2
[2025-01-09] MEDS: Potassium Chloride Oral Tablet 20 MEQ 60 MEQ PO (08:32)
[2025-01-09] MEDS: Pentoxifylline 400 MG Tablet PO (08:33)
[2025-01-09] MEDS: Carvedilol 12.5 MG Tablet PO ×2 (08:33→16:58)
[2025-01-09] MEDS: Folic Acid 1 MG Tablet PO (08:33)
[2025-01-09] MEDS: Ensure Plus High Protein 120 ML LIQUID PO ×2 (08:35→11:21)
[2025-01-09 08:54] LABS: Bedside Glucose 285 mg/dL (74-106)
[2025-01-09 09:56] LABS: Hemoglobin A1c 12.5 % (<=5.6)
--- NOTE | 2025-01-09 10:40 | CASEMGMT ---
RN ASIF Face to Face with patient for initial transition planning/care coordination assessment. RN CM introduced self and role at [facility]. Patient lying in bed, alert and oriented. Patient willing to participate in assessment and is able to answer all questions appropriately. Care providers, pharmacy, and demographics verified. Strata: 2 PCP: Felicita Specialists: Luke, drapery installer; Marcelo, passenger tire builder; Friend, GI; Chislik, ortho Preferred Pharmacy: [facility] Insurance: [facility] Prescription Benefit: yes Living Will/HPOA: yes, niece Letha Seth LNOK: niece Living Arrangements: Patient lives alone in a first floor apartment with 1 step to enter. Patient is independent at home. Transportation: self, niece DME/HHC: Patient has raised toilet, cane, crutches, walker, rollator, grab bars, pulse ox, and glucometer with supplies at home. Patient wishes to discharge home and is interested in HHC at discharge. CM to provide patient with HHC for preferences. Patient states he has no further needs or concerns at this time. CM to follow for discharge planning needs that may arise. Disposition Plan: Patient to discharge home with HHC, family support, and follow-up plans in place. Isha HOOVER, RN, CM
[2025-01-09] MEDS: Pantoprazole Sodium 40 MG Tablet PO ×2 (11:20→21:11)
[2025-01-09] MEDS: amLODIPine 5 MG Tablet PO (11:20)
[2025-01-09] MEDS: Ferrous Sulfate 325 MG Tablet PO (11:21)
[2025-01-09 11:41] LABS: Bedside Glucose 310 mg/dL (74-106)
[2025-01-09] MEDS: Budesonide 3 MG CAPSULE.EC 9 MG PO (14:25)
--- NOTE | 2025-01-09 15:44 | CASEMGMT ---
Discharge Planning When following up with pt re: HH choices, she stated that she did not want HH, just out-pt. Pt states that a HH employee brought bedbugs into her home in the past. Pt would like out-pt set up at [facility]. DEBRA CM updated. Kortney Roberto DC Planning Asst.
[2025-01-09 17:17] LABS: Bedside Glucose 284 mg/dL (74-106)
[2025-01-09] MEDS: Citalopram 20 MG Tablet PO (21:11)
[2025-01-09] MEDS: Insulin Glargine-YFGN 100 UNIT/ML Pen 10 UNIT SC (21:12)
[2025-01-09 22:01] LABS: Bedside Glucose 367 mg/dL (74-106)
[2025-01-09] MEDS: Acetaminophen 500 MG Tablet 1000 MG PO (22:37)
[2025-01-10 03:23] VITALS: BP 154/55; PULSE 62; RESP 18; TEMP 36.6; O2SAT 92
[2025-01-10] MEDS: Piperacil/Tazobactam 3.375 GM in 0.9% Normal Saline (50mL MB+) 50 ML IV ×3 (06:02→21:25)
[2025-01-10 06:03] VITALS: PULSE 62
[2025-01-10] MEDS: hydrALAZINE 25 MG Tablet PO ×3 (06:03→21:23)
[2025-01-10] MEDS: Insulin Lispro 100 UNIT/ML INSULN.PEN SC ×4 (06:03→21:27)
[2025-01-10] MEDS: Nystatin Powder 15gm Bottle 1 APPLIC TOPICAL ×3 (06:03→21:29)
[2025-01-10 06:30] LABS: Bedside Glucose 285 mg/dL (74-106)
[2025-01-10 07:36] LABS: Absolute Lymphocyte Count 0.83 X10^3/uL (0.83-4.51); Absolute Neutrophil Count 11.7 X10^3/uL (2.0-7.7); Basophil# 0.04 X10^3/uL; Basophil% 0.3 % (0-1); Eosinophil# 0.06 X10^3/uL; Eosinophils% 0.4 % (0-5); Hematocrit 29.3 % (37-47); Lymphocyte # 0.83 X10^3/ul (0.83-4.51); Lymphocyte % 6.2 % (19-41); Mean Corp Hgb Conc 30.7 g/dL (32-36); Mean Corpuscular Hgb 27.2 pg (27.0-32.0); Mean Corpuscular Volume 88.5 fL (81-99); Mean Platelet Vol. 10.4 fl (6.2-12.0); Monocyte# 0.67 X10^3/uL; NRBC Flagged by Analyzer 0 % (0-5); Neutrophil % 87.5 % (47-70); Platelet Count 283 K/mm3 (150-450); RBC Distribution Width SD 48.4 fl (35.1-43.9); Red Blood Count 3.31 M/mm3 (4.2-5.4); White Blood Count 13.4 K/mm3 (4.4-11.0)
[2025-01-10] MEDS: Potassium Chloride Oral Tablet 20 MEQ PO (09:00)
[2025-01-10] MEDS: Folic Acid 1 MG Tablet PO (09:00)
[2025-01-10] MEDS: amLODIPine 5 MG Tablet PO (09:00)
[2025-01-10] MEDS: Budesonide 3 MG CAPSULE.EC 9 MG PO (09:00)
[2025-01-10] MEDS: Carvedilol 12.5 MG Tablet PO ×2 (09:00→18:15)
[2025-01-10] MEDS: Pentoxifylline 400 MG Tablet PO (09:00)
[2025-01-10] MEDS: Pantoprazole Sodium 40 MG Tablet PO ×2 (09:00→21:24)
[2025-01-10 09:05] LABS: Anion Gap 14 (5-15); BUN 20 mg/dL (4-19); BUN/Creat Ratio 8.5 RATIO (10-20); Calcium,Total 8.5 mg/dL (7.6-11.0); Carbon Dioxide 24.3 mmol/L (21.0-32.0); Chloride 100 mmol/L (98-108); Creatinine, Serum 2.38 mg/dL (0.70-1.20); EST Glomerular Filtration Rate 20 (>60); Estimated Creatinine Clearance 21.74 ml/min (50-250); Glucose 287 mg/dL (70-99); Potassium 3.1 mmol/L (3.3-5.1); Sodium Level 138 mmol/L (133-145)
--- NOTE | 2025-01-10 09:12 | WOUNDNOTE ---
wound photo: abdominal fold
--- NOTE | 2025-01-10 09:12 | WOUNDNOTE ---
wound photo: left thigh fold
--- NOTE | 2025-01-10 09:13 | WOUNDNOTE ---
wound photo: left lower leg
--- NOTE | 2025-01-10 09:14 | WOUNDNOTE ---
skin photo: right lower leg
[2025-01-10 09:20] VITALS: BP 154/70; PULSE 63; RESP 18; TEMP 36.6; O2SAT 94
[2025-01-10 09:29] LABS: Bedside Glucose 216 mg/dL (74-106)
[2025-01-10] MEDS: Ferrous Sulfate 325 MG Tablet PO (11:17)
--- NOTE | 2025-01-10 13:28 | PN.HOSP_ITS ---
Reason for Visit Reason for Visit: Diagnoses Urinary tract infection, site not specified (01/08/25) Subjective Subjective Still somewhat weak but progressively improving Objective Data Objective Data Vital Signs: Vital Signs Temp Pulse Resp BP Pulse Ox O2 Del Method O2 Flow Rate 97.8 F 63 18 154/70 H 94 Room Air 2 01/10/25 09:20 01/10/25 09:20 01/10/25 09:20 01/10/25 09:20 01/10/25 09:20 01/10/25 09:20 01/09/25 12:32 Oxygen Flow Rate (L/min) 2 Oxygen Delivery Method Room Air Weight: 105 kg Body Mass Index (BMI) 43.7 Intake & Output: Intake and Output for Last 24 Hours 01/08/25 01/09/25 01/10/25 23:59 23:59 23:59 Intake Total 1050 / 1170 2180 / 2180 100 / 100 Output Total 1000 / 1000 Balance 1050 / 470 1180 / 1180 100 / 100 Lab / Micro Data 01/10/25 06:25 01/10/25 06:25 Labs: Laboratory Results - last 24 hr 01/09/25 16:54: POC Glucose 284 H 01/09/25 21:09: POC Glucose 367 H 01/10/25 06:01: POC Glucose 285 H 01/10/25 06:25: WBC 13.4 H, RBC 3.31 L, Hgb 9.0 L, Hct 29.3 L, MCV 88.5, MCH 27.2, MCHC 30.7 L, RDW Std Deviation 48.4 H, RDW Coeff of Juan [place] 15.0 H, Plt Count 283, MPV 10.4, Immature Gran % (Auto) 0.600, Neut % (Auto) 87.5 H, Lymph % (Auto) 6.2 L, [place] % (Auto) 5.0, Eos % (Auto) 0.4, Baso % (Auto) 0.3, Absolute Neuts (auto) 11.7 H, Absolute Lymphs (auto) 0.83, Nucleated RBC % 0, Sodium 138, Potassium 3.1 L, Chloride 100, Carbon Dioxide 24.3, Anion Gap 14, BUN 20 H, C reatinine 2.38 H, Estim Creat Clear Calc 21.74 L, Est GFR (MDRD) Non-Af 20 L, B UN/Creatinine Ratio 8.5 L, Glucose 287 H, Calcium 8.5 01/10/25 09:10: POC Glucose 216 H Micro: Microbiology 01/08/25 20:57 Urine, Catheterized Urine Culture - Final Escherichia coli 01/08/25 20:40 Mucosa - Nose SARS-CoV-2, Influenza & RSV (PCR) - Final Physical Exam Narrative General: Alert, oriented to time and place, no apparent distress HEENT: Atraumatic, normocephalic Eyes: Anicteric, normal conjunctiva, extraocular movements grossly intact Neck: Supple Respiratory: Clear to auscultation bilaterally, normal respiratory effort Cardiovascular: Regular rate GI: Soft, nontender, nondistended Extremities: No edema Musculoskeletal: Moving all extremities Neuro: No overt focal neurological deficits Skin: Some chronic lower extremity changes Psych: Cooperative Assessment & Plan Assessment/Plan (1) Acute UTI: PLAN: Plan # Generalized weakness and debility secondary to E. coli UTI -UA suspicious for UTI -Patient on empiric antibiotics -Awaiting urine culture -PT/OT -Patient reports she already feels she is improving -01/10: Patient growing E. coli, is steadily improving with IV antibiotics, may be ready for DC tomorrow if she continues to improve #Type 2 diabetes mellitus -Glucose checks and sliding scale insulin -Patient is on glargine continued, if she remains persistently hyperglycemic despite sliding scale and home glargine after infection improves will need further adjustment -01/10: Increased patient's insulin, glucose still uncontrolled # CKD stage IV -Appears to be at baseline -Avoid nephrotoxic agents -Daily BMPs -Follows with Dr. Robertson on an outpatient basis -01/10: Slightly improved today, continue present management #Hypokalemia -Replace -Repeat in the AM -01/10: Remains low, replaced today and schedule low-dose replacement given elevated creatinine #Hypertension -I do not see that patient is on any home medications, started on amlodipine here due to significantly elevated blood pressure, will continue -01/10: Patient will need to discharge on blood pressure medication and will need to follow closely with PCP for further monitoring and possible titration if necessary Chronic medical problems: # History of spurting duodenal ulcer -Anemic 05/20/2024 after an admission for OSVALDO, hemoglobin was 6.5 and she was transfused 3 units packed red blood cells and EGD revealed spurting duodenal ulcer -Follows with GI -Reportedly should be on PPI twice daily however do not see this on med list, will initiate # Microscopic colitis -Seen on colonoscopy -She is chronically on budesonide and follows with GI, was last seen 2 days ago -Will continue home budesonide #Depression/anxiety -Continue home medications #Morbid obesity -BMI documented as 43.7 kg/m? at time of admission -Complicates treatment, prognosis, outcomes -Recommend weight loss and lifestyle changes #DVT ppx: Heparin subcu Marjorie Gallardo MD Time spent in the patient's overall evaluation,decision-making process, review of diagnostic data, adjustment of management, discussion with other providers, nursing nursing and ancillary staff involved in patient's care documentation, 36 Minutes Charges/Coding Visit Charges Inpatient E&M: 34977 Subs Hosp L2
[2025-01-10] MEDS: Heparin Injection (Vial) 5,000 UNIT/ML VIAL 5000 UNIT SC ×2 (15:15→21:26)
[2025-01-10 15:16] VITALS: PULSE 72
[2025-01-10] MEDS: Menthol/Lanolin/Calamine/Znox 113 GM Tube 1 APPLIC TOPICAL (15:17)
--- NOTE | 2025-01-10 16:21 | CASEMGMT ---
DEBRA GOLD note: Pt would like to do OP therapy @ [facility]. Script obtained from Dr Gallardo and faxed to [facility]. Pt also provided w/OP script, if needed, in case fax sent today does not go through. Pt denies having other dc needs. Nazanin KELLOGGN DEBRA CM
[2025-01-10 17:35] LABS: Bedside Glucose 343 mg/dL (74-106)
[2025-01-10 21:16] VITALS: BP 147/68; PULSE 66; RESP 18; TEMP 36.7; O2SAT 94
[2025-01-10] MEDS: 0.9% Saline Lock 10 ML Syringe IV (21:22)
[2025-01-10 21:23] VITALS: BP 147/68; PULSE 66
[2025-01-10] MEDS: Citalopram 20 MG Tablet PO (21:24)
[2025-01-10] MEDS: Insulin Glargine-YFGN 100 UNIT/ML Pen 12 UNIT SC (21:28)
[2025-01-10 22:02] LABS: Bedside Glucose 385 mg/dL (74-106)
[2025-01-11 03:55] VITALS: BP 150/63; PULSE 63; RESP 18; TEMP 36.7; O2SAT 94
[2025-01-11 05:09] VITALS: BP 154/64; PULSE 57
[2025-01-11 05:12] VITALS: BP 154/64; PULSE 57
[2025-01-11] MEDS: Piperacil/Tazobactam 3.375 GM in 0.9% Normal Saline (50mL MB+) 50 ML IV (05:12)
[2025-01-11] MEDS: hydrALAZINE 25 MG Tablet PO ×2 (05:12→13:16)
[2025-01-11] MEDS: Heparin Injection (Vial) 5,000 UNIT/ML VIAL 5000 UNIT SC ×2 (05:14→13:16)
[2025-01-11] MEDS: 0.9% Saline Lock 10 ML Syringe IV (05:14)
[2025-01-11] MEDS: Nystatin Powder 15gm Bottle 1 APPLIC TOPICAL ×2 (05:16→13:16)
[2025-01-11 06:09] LABS: Absolute Lymphocyte Count 1.39 X10^3/uL (0.83-4.51); Absolute Neutrophil Count 10.1 X10^3/uL (2.0-7.7); Basophil# 0.06 X10^3/uL; Basophil% 0.4 % (0-1); Eosinophils% 3.7 % (0-5); Hematocrit 27.6 % (37-47); Hemoglobin 8.4 g/dL (12.0-15.0); Lymphocyte # 1.39 X10^3/ul (0.83-4.51); Lymphocyte % 10.3 % (19-41); Mean Corp Hgb Conc 30.4 g/dL (32-36); Mean Corpuscular Hgb 26.8 pg (27.0-32.0); Mean Corpuscular Volume 87.9 fL (81-99); Monocyte# 1.33 X10^3/uL; Monocyte% 9.9 % (0-10); NRBC Flagged by Analyzer 0 % (0-5); Platelet Count 293 K/mm3 (150-450); RBC Distribution Width SD 47.8 fl (35.1-43.9); Red Blood Count 3.14 M/mm3 (4.2-5.4); White Blood Count 13.5 K/mm3 (4.4-11.0)
[2025-01-11 06:49] LABS: Bedside Glucose 84 mg/dL (74-106)
[2025-01-11 06:52] LABS: Anion Gap 12 (5-15); BUN 19 mg/dL (4-19); BUN/Creat Ratio 7.9 RATIO (10-20); Calcium,Total 8.3 mg/dL (7.6-11.0); Carbon Dioxide 25.2 mmol/L (21.0-32.0); Chloride 103 mmol/L (98-108); Creatinine, Serum 2.45 mg/dL (0.70-1.20); EST Glomerular Filtration Rate 20 (>60); Estimated Creatinine Clearance 21.12 ml/min (50-250); Glucose 90 mg/dL (70-99); Potassium 2.8 mmol/L (3.3-5.1); Sodium Level 140 mmol/L (133-145)
[2025-01-11] MEDS: Pentoxifylline 400 MG Tablet PO (08:48)
[2025-01-11] MEDS: Folic Acid 1 MG Tablet PO (08:48)
[2025-01-11] MEDS: Potassium Chloride Oral Tablet 20 MEQ 40 MEQ PO (08:48)
[2025-01-11] MEDS: Carvedilol 12.5 MG Tablet PO (08:48)
[2025-01-11] MEDS: amLODIPine 5 MG Tablet PO (09:00)
[2025-01-11] MEDS: Budesonide 3 MG CAPSULE.EC 9 MG PO (09:00)
[2025-01-11] MEDS: Pantoprazole Sodium 40 MG Tablet PO (09:00)
[2025-01-11 10:00] VITALS: BP 159/60; PULSE 61; RESP 18; TEMP 36.7; O2SAT 94
--- NOTE | 2025-01-11 10:40 | DCINST_ITS ---
Discharge Instructions Diet Discharge Diet: - (DASH diet) DC O2, CPAP, BIPAP needs Home O2 Discharge instructions: No Follow Up Care Test Results: Test results from this visit will be discussed in further detail at your follow- up appointment, if applicable. Discharge Plan Admission Admit Date/Time: 01/08/25 23:03 Primary Reason for Your Visit: Weakness Attending Provider: Marjorie Gallardo Primary Care Provider: Elena Mims Consulting Providers: Hamlet Charles Instructions Patient Instructions: ED Fall Prevention Additional Instructions / Restrictions: DISCHARGE INSTRUCTIONS PLEASE READ *Please take this with you to your next doctors appointment* - You will be discharged on Augmentin 875 mg twice daily for urinary tract infection, you will take 1 dose tonight followed by twice daily for 4 days -Protonix is not on your medication list but it has been advised by your GI doctor that he should be taking it twice daily so a new prescription was sent into your preferred pharmacy on file -Due to persistently elevated blood pressures you were started on blood pressure medication, amlodipine and carvedilol, please follow-up with your primary care physician for further management and adjustment of medications for your elevated blood pressure -Your blood sugars at [place] significantly elevated during your hospitalization so your insulin glargine was increased to 12 units, this will likely need further increase/adjustment so would recommend following closely with your primary care physician, addition of oral agents can also be considered through your primary care physician office but will defer to your outpatient provider -Given your persistently low potassiums you will be started on 20 mill equivalents of potassium daily -Would recommend lab work (BMP) to check your potassium and kidney function in 2 to 3 days through your primary care physician's office. Please call their office upon discharge to obtain order for lab work. -Please call your primary care provider's office upon discharge to schedule a hospital follow up within 1 week. -For any concerning signs or symptoms please call 911 or proceed to the nearest emergency department Discharge Orders/Prescriptions Prescriptions: New amlodipine 5 mg Tablet 5 mg PO DAILY 30 Days Qty: 30 0RF amoxicillin-pot clavulanate 875-125 mg tablet 1 tab PO BID 4 Days Qty: 9 0RF carvedilol 12.5 mg Tablet 12.5 mg PO BIDCM 30 Days Qty: 60 0RF insulin glargine-yfgn 100 unit/mL (3 mL) Insulin Pen 12 unit subcut QHS Qty: 15 0RF potassium chloride 20 mEq Tablet,Er Particles/Crystals 20 meq PO DAILYCM 30 Days Qty: 30 0RF pantoprazole 40 mg Tablet,Delayed Release (Dr/Ec) 40 mg PO BID 30 Days Qty: 60 0RF Continued folic acid 1 MG tablet 1 mg PO DAILY@0800 calcium carbonate-vitamin D3 [Caltrate with Vitamin D3] 1 TAB tablet 1 tab PO BID citalopram 20 mg tablet 20 mg PO QHS ferrous sulfate [FeroSul] 325 mg (65 mg iron) tablet 325 mg PO DAILY pentoxifylline 400 mg tablet extended release 400 mg PO DAILY vitamin E 268 mg (400 unit) capsule 268 mg PO DAILY budesonide 3 mg capsule,delayed,extend.release 3 mg PO .COMPLEX Qty: 90 0RF Rx Instructions: 3 mg orally take 3 capsules once daily every morning; Discontinued insulin glargine [Lantus Solostar U-100 Insulin] 100 unit/mL (3 mL) insulin pen 8 unit subcut QHS Referrals / Follow Up: Elena Mims DO [Primary Care Provider] - Within 1 Week Disposition Disposition (needs filled in before D/C Order can be placed): Home, Self Care
--- NOTE | 2025-01-11 10:45 | PCM.DC.SUM ---
Providers Date of Admission: 01/08/25 Date of Discharge: 01/11/25 Primary Care Physician: Dr. 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 Comment: Reason For Visit: UTI, WEAKNESS Diagnosis Discharge Diagnosis (1) Acute UTI: Status: Acute Code(s): N39.0 - Urinary tract infection, site not specified Plan #Ecoli UTI #Generalized weakness 2/2 Ecoli UTI #DMII- uncontrolled #CKD IV #Hypokalemia # History of spurting duodenal ulcer # Microscopic colitis #Depression/anxiety #Uncontrolled HTN #Morbid obesity Medications at Discharge Home Medications folic acid 1 mg tablet 1 mg PO DAILY@0800 SUPPLEMENT 01/21/17 calcium 600 mg (as carbonate)-vitamin D3 20 mcg (800 unit) tablet (Caltrate with Vitamin D3) 1 tab PO BID SUPPLEMENT 03/05/19 citalopram 20 mg tablet 20 mg PO QHS mental health 01/22/22 pentoxifylline 400 mg tablet,extended release 400 mg PO DAILY PAD 02/15/24 vitamin E 268 mg (400 unit) capsule 268 mg PO DAILY Supplement 02/15/24 ferrous sulfate 325 mg (65 mg iron) tablet (FeroSul) 325 mg PO DAILY Supplement 06/05/24 budesonide 3 mg capsule,delayed,extended release 3 mg PO .COMPLEX Stomach Lining #90 ea 01/08/25 amlodipine 5 mg tablet 5 mg PO DAILY 30 days #30 tabs 01/11/25 amoxicillin 875 mg-potassium clavulanate 125 mg tablet 1 tab PO BID 4 days #9 tabs 01/11/25 carvedilol 12.5 mg tablet 12.5 mg PO BIDCM 30 days #60 tabs 01/11/25 insulin glargine-yfgn 100 unit/mL (3 mL) subcutaneous pen 12 unit (0.12 mL) subcut QHS #15 mL 01/11/25 pantoprazole 40 mg tablet,delayed release 40 mg PO BID 30 days #60 tabs 01/11/25 potassium chloride 20 mEq tablet,extended release(part/cryst) 20 meq PO DAILYCM 30 days #30 tabs 01/11/25 Hospital Course Summary of Care Provided Minutes Spent on Discharge: 32 Hospital Course: #Ecoli UTI #Generalized weakness 2/2 Ecoli UTI #DMII- uncontrolled #CKD IV #Hypokalemia # History of spurting duodenal ulcer # Microscopic colitis #Depression/anxiety #Uncontrolled HTN #Morbid obesity 79-year-old female history as above presented to [facility] ED 01/08/2025 due to worsening weakness. In the ED she had a blood pressure 180/84, leukocytosis at 15, potassium of 2.4 and a glucose of 469, UA concerning for UTI. Reportedly saw PCP 4 weeks ago and was taken off of multiple medications including Januvia, losartan, furosemide, potassium, Crestor, alendronate per her report. Patient admitted, started on antibiotics, blood pressure medication, insulin titrated. Patient began feeling significantly better with 1 day of antibiotics. Urine culture grew E. coli, sensitivities noted and appropriate oral regimen identified. Patient felt much better and was felt safe for discharge home. Patient with no new or acute complaints on day of discharge. Discharge instructions as follows: - You will be discharged on Augmentin 875 mg twice daily for urinary tract infection, you will take 1 dose tonight followed by twice daily for 4 days -Protonix is not on your medication list but it has been advised by your GI doctor that he should be taking it twice daily so a new prescription was sent into your preferred pharmacy on file -Due to persistently elevated blood pressures you were started on blood pressure medication, amlodipine and carvedilol, please follow-up with your primary care physician for further management and adjustment of medications for your elevated blood pressure -Your blood sugars [place] significantly elevated during your hospitalization so your insulin glargine was increased to 12 units, this will likely need further increase/adjustment so would recommend following closely with your primary care physician, addition of oral agents can also be considered through your primary care physician office but will defer to your outpatient provider -Given your persistently low potassiums you will be started on 20 mill equivalents of potassium daily -Would recommend lab work (BMP) to check your potassium and kidney function in 2 to 3 days through your primary care physician's office. Please call their office upon discharge to obtain order for lab work. Physical Exam Narrative General: Alert, oriented to time and place, no apparent distress HEENT: Atraumatic, normocephalic Eyes: Anicteric, normal conjunctiva, extraocular movements grossly intact Neck: Supple Respiratory: Clear to auscultation bilaterally, normal respiratory effort Cardiovascular: Regular rate GI: Soft, nontender, nondistended Extremities: No edema Musculoskeletal: Moving all extremities Neuro: No overt focal neurological deficits Skin: Some chronic lower extremity changes Psych: Cooperative Weight / BMI Weight Weight: 105 kg Body Mass Index (BMI) 43.7 ABG / Lab / Microbiology Data 01/11/25 05:26 01/11/25 11:31 Laboratory: Laboratory Results - last 24 hr 01/10/25 17:16: POC Glucose 343 H 01/10/25 21:17: POC Glucose 385 H 01/11/25 05:26: WBC 13.5 H, RBC 3.14 L, Hgb 8.4 L, Hct 27.6 L, MCV 87.9, MCH 26.8 L, MCHC 30.4 L, RDW Std Deviation 47.8 H, RDW Coeff of [place] 15.0 H, Plt Count 293, MPV 10.0, Immature Gran % (Auto) 0.700, Neut % (Auto) 75.0 H, Lymph % (Auto) 10.3 L, Potter % (Auto) 9.9, Eos % (Auto) 3.7, Baso % (Auto) 0.4, Absolute Neuts (auto) 10.1 H, Absolute Lymphs (auto) 1.39, Nucleated RBC % 0, Sodium 140, Potassium 2.8 L, Chloride 103, Carbon Dioxide 25.2, Anion Gap 12, BUN 19, Creatinine 2.45 H, Estim Creat Clear Calc 21.12 L, Est GFR (MDRD) Non-Af 20 L, BUN/Creatinine Ratio 7.9 L, Glucose 90, Calcium 8.3 01/11/25 06:28: POC Glucose 84 01/11/25 11:31: Sodium 139, Potassium 3.3, Chloride 102, Carbon Dioxide 25.5, Anion Gap 11, BUN 18, Creatinine 2.51 H, Estim Creat Clear Calc 20.61 L, Est GFR (MDRD) Non-Af 19 L, BUN/Creatinine Ratio 7.3 L, Glucose 261 H, Calcium 8.4 Microbiology: Microbiology 01/08/25 20:57 Urine, Catheterized Urine Culture - Final Escherichia coli 01/08/25 20:40 Mucosa - Nose SARS-CoV-2, Influenza & RSV (PCR) - Final D/C Instructions Discharge Diet: - (DASH diet) DC O2, CPAP, BIPAP Needs Home O2 Discharge instructions: No Meaningful Use Info Meaningful Use Meaningful Use Diagnoses (Choose all that apply): None applicable Ischemic Stroke Statin Dosing Therapy Reference: STATIN DOSE THERAPY REFERENCE: * Patients > 75 years receive moderate or high dose statin therapy. * Patients 75 years or YOUNGER should receive HIGH intensity statin dose unless contraindicated. You will be required to document reason for non-treatment if statin daily dose does not meet guidelines. HIGH DOSE STATIN THERAPY DAILY Atorvastatin > than or = to 40 mg Rosuvastatin > than or = to 20 mg Amlodipine + Atorvastatin > than or = to 2.5/40 mg Ezetimibe + Simvastatin 10/80 mg Simvastatin 80mg Discharge Plan Admission Admit Date/Time: 01/08/25 23:03 Primary Reason for Your Visit: Weakness Attending Provider: Marjorie Gallardo Primary Care Provider: Elena Mims Consulting Providers: Hamlet Charles Instructions Patient Instructions: ED Fall Prevention Additional Instructions / Restrictions: DISCHARGE INSTRUCTIONS PLEASE READ *Please take this with you to your next doctors appointment* - You will be discharged on Augmentin 875 mg twice daily for urinary tract infection, you will take 1 dose tonight followed by twice daily for 4 days -Protonix is not on your medication list but it has been advised by your GI doctor that he should be taking it twice daily so a new prescription was sent into your preferred pharmacy on file -Due to persistently elevated blood pressures you were started on blood pressure medication, amlodipine and carvedilol, please follow-up with your primary care physician for further management and adjustment of medications for your elevated blood pressure -Your blood sugars at [place] significantly elevated during your hospitalization so your insulin glargine was increased to 12 units, this will likely need further increase/adjustment so would recommend following closely with your primary care physician, addition of oral agents can also be considered through your primary care physician office but will defer to your outpatient provider -Given your persistently low potassiums you will be started on 20 mill equivalents of potassium daily -Would recommend lab work (BMP) to check your potassium and kidney function in 2 to 3 days through your primary care physician's office. Please call their office upon discharge to obtain order for lab work. -Please call your primary care provider's office upon discharge to schedule a hospital follow up within 1 week. -For any concerning signs or symptoms please call 911 or proceed to the nearest emergency department Discharge Orders/Prescriptions Prescriptions: New amlodipine 5 mg Tablet 5 mg PO DAILY 30 Days Qty: 30 0RF amoxicillin-pot clavulanate 875-125 mg tablet 1 tab PO BID 4 Days Qty: 9 0RF carvedilol 12.5 mg Tablet 12.5 mg PO BIDCM 30 Days Qty: 60 0RF insulin glargine-yfgn 100 unit/mL (3 mL) Insulin Pen 12 unit subcut QHS Qty: 15 0RF potassium chloride 20 mEq Tablet,Er Particles/Crystals 20 meq PO DAILYCM 30 Days Qty: 30 0RF pantoprazole 40 mg Tablet,Delayed Release (Dr/Ec) 40 mg PO BID 30 Days Qty: 60 0RF Continued folic acid 1 MG tablet 1 mg PO DAILY@0800 calcium carbonate-vitamin D3 [Caltrate with Vitamin D3] 1 TAB tablet 1 tab PO BID citalopram 20 mg tablet 20 mg PO QHS ferrous sulfate [FeroSul] 325 mg (65 mg iron) tablet 325 mg PO DAILY pentoxifylline 400 mg tablet extended release 400 mg PO DAILY vitamin E 268 mg (400 unit) capsule 268 mg PO DAILY budesonide 3 mg capsule,delayed,extend.release 3 mg PO .COMPLEX Qty: 90 0RF Rx Instructions: 3 mg orally take 3 capsules once daily every morning; Discontinued insulin glargine [Lantus Solostar U-100 Insulin] 100 unit/mL (3 mL) insulin pen 8 unit subcut QHS Referrals / Follow Up: Elena Mims DO [Primary Care Provider] - Within 1 Week Disposition Disposition (needs filled in before D/C Order can be placed): Home, Self Care Charges/Coding Visit Charges Inpatient E&M: 23854 Disch Hosp >30min
[2025-01-11 12:11] LABS: Anion Gap 11 (5-15); BUN 18 mg/dL (4-19); BUN/Creat Ratio 7.3 RATIO (10-20); Calcium,Total 8.4 mg/dL (7.6-11.0); Carbon Dioxide 25.5 mmol/L (21.0-32.0); Chloride 102 mmol/L (98-108); Creatinine, Serum 2.51 mg/dL (0.70-1.20); EST Glomerular Filtration Rate 19 (>60); Estimated Creatinine Clearance 20.61 ml/min (50-250); Glucose 261 mg/dL (70-99); Potassium 3.3 mmol/L (3.3-5.1); Sodium Level 139 mmol/L (133-145)
[2025-01-11 12:26] LABS: Bedside Glucose 289 mg/dL (74-106)
[2025-01-11] MEDS: Ferrous Sulfate 325 MG Tablet PO (13:15)
[2025-01-11] MEDS: Insulin Lispro 100 UNIT/ML INSULN.PEN SC (13:15)
[2025-01-11] MEDS: Potassium Chloride Oral Tablet 10 MEQ PO (13:15)
[2025-01-11 13:16] VITALS: PULSE 62
[2025-01-11] MEDS: Menthol/Lanolin/Calamine/Znox 113 GM Tube 1 APPLIC TOPICAL (13:16)
== END 2025-01-11 14:40 | disposition home or self-care (01) | DRG 690 ==
LOC: ED 22:20 → PCU 01-09 00:47
PROVIDERS: Physician Assistant; Admitting Provider Internal Medicine; Emergency Provider Emergency Medicine; PCP Internal Medicine; Visit Provider Internal Medicine
DX: N39.0 Urinary tract infection, site not specified (principal); N18.4 Chronic kidney disease, stage 4 (severe); Z68.41 Body mass index [BMI] 40.0-44.9, adult; K26.9 Duodenal ulcer, unspecified as acute or chronic, without hemorrhage or perforation; E11.22 Type 2 diabetes mellitus with diabetic chronic kidney disease; D64.9 Anemia, unspecified; E11.65 Type 2 diabetes mellitus with hyperglycemia; B96.20 Unspecified Escherichia coli [E. coli] as the cause of diseases classified elsewhere; I12.9 Hypertensive chronic kidney disease with stage 1 through stage 4 chronic kidney disease, or unspecified chronic kidney disease; F32.A Depression, unspecified; E66.01 Morbid (severe) obesity due to excess calories; E87.6 Hypokalemia; E78.5 Hyperlipidemia, unspecified; K52.839 Microscopic colitis, unspecified; I89.0 Lymphedema, not elsewhere classified; M19.90 Unspecified osteoarthritis, unspecified site; R19.7 Diarrhea, unspecified; Z60.2 Problems related to living alone; R53.81 Other malaise; Z79.84 Long term (current) use of oral hypoglycemic drugs; Z79.02 Long term (current) use of antithrombotics/antiplatelets; Z79.899 Other long term (current) drug therapy; Z96.643 Presence of artificial hip joint, bilateral; Z96.653 Presence of artificial knee joint, bilateral; Z11.52 Encounter for screening for COVID-19
CPT/HCPCS: 36415; 36600; 71045; 80048; 80053; 81001; 82010; 82803; 82962; 83036; 83540; 83550; 83735; 85025; 87077; 87086; 87088; 87186; 87631; 93005; 97116; 97162; 97166; 97530; 97535; 97802; 99285; A4216

== ENCOUNTER → 2025-01-24 | Outpatient (CLI) | payer MEDICARE, SELFPAY ==
[2025-01-24 12:44] LABS: Hematocrit 32.9 % (37-47); Hemoglobin 10.3 g/dL (12.0-15.0); Mean Corp Hgb Conc 31.3 g/dL (32-36); Mean Corpuscular Hgb 27.3 pg (27.0-32.0); Mean Corpuscular Volume 87.3 fL (81-99); Mean Platelet Vol. 9.7 fl (6.2-12.0); Platelet Count 339 K/mm3 (150-450); RBC Distribution Width CV 15.2 % (11.6-14.6); Red Blood Count 3.77 M/mm3 (4.2-5.4); White Blood Count 12.6 K/mm3 (4.4-11.0)
[2025-01-24 14:13] LABS: Albumin, Serum 3.6 g/dL (3.4-4.8); Anion Gap 18 (5-15); BUN 38 mg/dL (4-19); BUN/Creat Ratio 13.2 RATIO (10-20); Calcium,Total 9.6 mg/dL (7.6-11.0); Carbon Dioxide 22.7 mmol/L (21.0-32.0); Chloride 97 mmol/L (98-108); Creatinine, Serum 2.84 mg/dL (0.70-1.20); EST Glomerular Filtration Rate 16 (>60); Glucose 221 mg/dL (70-99); Phosphorus 4.4 mg/dL (2.7-4.5); Potassium 4.2 mmol/L (3.3-5.1); Sodium Level 138 mmol/L (133-145)
[2025-01-27 13:11] LABS: Protein, Urine (Random) 50.9 mg/dL (0.0-12.0); Protein:Creat Ratio 691 mg/g CRE (0-200)
== END | disposition home or self-care (01) ==
LOC: MTLAB 09:21
PROVIDERS: PCP Internal Medicine; Referring Provider Internal Medicine Nephrology; Visit Provider Internal Medicine Nephrology
DX: N18.32 Chronic kidney disease, stage 3b (principal)
CPT/HCPCS: 36415; 80069; 82570; 84156; 85027

== ENCOUNTER → 2025-02-10 | Outpatient (CLI) | payer MEDICARE, SELFPAY ==
[2025-02-10 11:28] LABS: Absolute Lymphocyte Count 1.45 X10^3/uL (0.83-4.51); Absolute Neutrophil Count 8.3 X10^3/uL (2.0-7.7); Basophil# 0.03 X10^3/uL; Basophil% 0.3 % (0-1); Eosinophil# 0.44 X10^3/uL; Eosinophils% 3.7 % (0-5); Hematocrit 30.7 % (37-47); Hemoglobin 9.3 g/dL (12.0-15.0); Iron 29 ug/dL (50-170); Iron Binding Capacity,Total 306 ug/dL (250-450); Iron Binding Capacity,Unsat 277 ug/dL (228-428); Lymphocyte # 1.45 X10^3/ul (0.83-4.51); Lymphocyte % 12.1 % (19-41); Mean Corp Hgb Conc 30.3 g/dL (32-36); Mean Corpuscular Hgb 27.4 pg (27.0-32.0); Mean Corpuscular Volume 90.6 fL (81-99); Mean Platelet Vol. 10.5 fl (6.2-12.0); Monocyte# 1.69 X10^3/uL; Monocyte% 14.1 % (0-10); NRBC Flagged by Analyzer 0 % (0-5); Neutrophil # 8.27 X10^3/uL (2.7-7.7); Neutrophil % 68.8 % (47-70); POSITIVE DIFFERENTIAL YES; Platelet Count 278 K/mm3 (150-450); RBC Distribution Width CV 15.4 % (11.6-14.6); RBC Distribution Width SD 51.4 fl (35.1-43.9); Red Blood Count 3.39 M/mm3 (4.2-5.4)
[2025-02-10 11:31] LABS: Differential Indicated SCAN CRITERIA MET
[2025-02-10 11:51] LABS: Differential Comment SCANNED
== END | disposition home or self-care (01) ==
LOC: MTLAB 07:50
PROVIDERS: PCP Internal Medicine; Referring Provider Nurse Practitioner Acute Care; Visit Provider Nurse Practitioner Acute Care
DX: D64.9 Anemia, unspecified (principal)
CPT/HCPCS: 36415; 83540; 83550; 85025

== ENCOUNTER → 2025-04-02 | Outpatient (CLI) | payer MEDICARE, SELFPAY ==
[2025-04-02 15:28] LABS: Absolute Lymphocyte Count 0.68 X10^3/uL (0.83-4.51); Absolute Neutrophil Count 7.3 X10^3/uL (2.0-7.7); Basophil# 0.04 X10^3/uL; Basophil% 0.4 % (0-1); Eosinophil# 0.25 X10^3/uL; Eosinophils% 2.6 % (0-5); Hematocrit 29.5 % (37-47); Hemoglobin 9.3 g/dL (12.0-15.0); Lymphocyte # 0.68 X10^3/ul (0.83-4.51); Lymphocyte % 7.1 % (19-41); Mean Corp Hgb Conc 31.5 g/dL (32-36); Mean Corpuscular Hgb 27.9 pg (27.0-32.0); Mean Corpuscular Volume 88.6 fL (81-99); Mean Platelet Vol. 9.9 fl (6.2-12.0); Monocyte# 1.15 X10^3/uL; Monocyte% 12.1 % (0-10); NRBC Flagged by Analyzer 0 % (0-5); Neutrophil # 7.29 X10^3/uL (2.7-7.7); Neutrophil % 76.5 % (47-70); Platelet Count 236 K/mm3 (150-450); RBC Distribution Width CV 16.6 % (11.6-14.6); RBC Distribution Width SD 53.9 fl (35.1-43.9); Red Blood Count 3.33 M/mm3 (4.2-5.4); White Blood Count 9.5 K/mm3 (4.4-11.0)
[2025-04-02 16:29] LABS: Iron 25 ug/dL (50-170); Iron Binding Capacity,Total 244 ug/dL (250-450); Iron Binding Capacity,Unsat 219 ug/dL (228-428)
== END | disposition home or self-care (01) ==
LOC: LAB 13:44
PROVIDERS: PCP Internal Medicine; Referring Provider Nurse Practitioner Acute Care; Visit Provider Nurse Practitioner Acute Care
DX: D64.9 Anemia, unspecified (principal)
CPT/HCPCS: 36415; 83540; 83550; 85025

== ENCOUNTER 2025-05-04 13:39 | Inpatient (IN) | payer MEDICARE, SELFPAY ==
[2025-05-04] VITALS (12 sets, daily range): BP systolic 105–134; BP diastolic 41–101; PULSE 53–77; RESP 13–20; TEMP 36.2–36.6; O2SAT 93–98; BMI 43.0; BMI 43.7
[2025-05-04] MEDS: 0.9% Normal Saline (1000mL) 1,000 ML 1000 ML IV (14:21)
[2025-05-04 14:29] LABS: Hematocrit 32.4 % (37-47); Hemoglobin 10.3 g/dL (12.0-15.0); Immature Granulocytes Count 0.100 X10^3/uL (0.0-0.0); Mean Corp Hgb Conc 31.8 g/dL (32-36); Mean Corpuscular Volume 89.8 fL (81-99); Mean Platelet Vol. 10.0 fl (6.2-12.0); NRBC Flagged by Analyzer 0 % (0-5); POSITIVE DIFFERENTIAL YES; Platelet Count 241 K/mm3 (150-450); RBC Distribution Width CV 17.1 % (11.6-14.6); RBC Distribution Width SD 56.4 fl (35.1-43.9); Red Blood Count 3.61 M/mm3 (4.2-5.4); White Blood Count 10.8 K/mm3 (4.4-11.0)
[2025-05-04 14:41] LABS: Mucous, Urine 0 SEEN /hpf (<or=2+)
--- NOTE | 2025-05-04 14:57 | ED.VIS.DYS ---
HPI History of Present Illness Chief Complaint: Shortness of Breath Narrative Narrative: Chief complaint and HPI: Diarrhea and weakness. 79-year-old female with past medical history of DM fracture, CKD, HTN, HLD, history of upper GI bleed presents for evaluation of diarrhea and weakness. Triage note states shortness of breath however patient denies this to me. Patient states today she developed multiple episodes of diarrhea. She denies blood in the stool although states that occasionally looks dark. States she is concerned she may be dehydrated although she states she has been eating and drinking. She denies any fever, chills, URI symptoms, shortness of breath, chest pain, abdominal pain, dysuria, hematuria. Review of systems: See HPI Medications: As listed on the chart Allergies: As listed on the chart PFSH: Per chart Vital signs: As listed on the chart. Reviewed. Physical exam: Gen: A&O x3, NAD Head: Normocephalic, atraumatic Eyes: No sclera icterus, conjunctiva clear ENT: Dry mucous membranes Neck: Trachea midline, No JVD CV: RRR, no murmurs, no peripheral edema Resp: Lungs CTA BL, no w/r/c GI: Abd soft, non-distended, non-tender, no r/r/g Rectal: Normal external examination. No evidence of hemorrhoids or fissures. Normal tone and sensation. No masses, fluctuance, or tenderness. No pain out of proportion. Stool brown on gloved finger. : Normal external genitalia. In the bilateral groins right worse than left-patient states she has been using fluconazole powder Musc: Moves all extremities, no deformity Skin: Warm, dry, 2 chronic sores to the left lower extremity without signs of infection Neuro: Alert, oriented, grossly intact, sensation intact Psych: Cooperative, appropriate mood and affect [facility] Medical History Microscopic colitis Anemia CKD (chronic kidney disease) Osteoarthritis History of irritable colon Essential hypertension Dyslipidemia Anxiety Diabetes Kidney disease GI bleed Non-smoker Upper GI bleed Duodenal ulcer Candidiasis of breast History of anemia History of hypertension History of chronic kidney disease History of hyperlipidemia History of diabetes insipidus Candidal intertrigo Stage 3b chronic kidney disease (CKD) Osteoporosis Hyperlipidemia Anemia Hypertension Lymphedema Morbid obesity History of gastroesophageal reflux (GERD) Type II diabetes mellitus Home Medications ?Medication ?Instructions ?Recorded ?Last Taken ?Type folic acid 1 mg tablet 1 mg PO DAILY@0800 SUPPLEMENT 01/21/17 05/03/25 History calcium 600 mg (as 1 tab PO DAILY SUPPLEMENT 03/05/19 05/03/25 History carbonate)-vitamin D3 20 mcg (800 unit) tablet (Caltrate with Vitamin D3) citalopram 20 mg tablet 20 mg PO QHS mental health 01/22/22 05/03/25 History pentoxifylline 400 mg 400 mg PO DAILY PAD 02/15/24 05/03/25 History tablet,extended release vitamin E 268 mg (400 unit) capsule 268 mg PO DAILY Supplement 02/15/24 05/03/25 History ferrous sulfate 325 mg (65 mg 325 mg PO DAILY Supplement 06/05/24 05/03/25 History iron) tablet (FeroSul) amlodipine 5 mg tablet 5 mg PO DAILY 30 days #30 tabs 01/11/25 05/03/25 Rx potassium chloride 20 mEq 20 meq PO DAILYCM 30 days #30 tabs 01/11/25 05/03/25 Rx tablet,extended release(part/cryst) budesonide 3 mg 3 mg PO .COMPLEX Stomach Lining 04/02/25 05/03/25 Rx capsule,delayed,extended release #90 ea carvedilol 12.5 mg tablet 6.25 mg PO BIDCM 04/02/25 05/03/25 History furosemide 40 mg tablet (Lasix) 40 mg PO .4 days a week 04/02/25 05/03/25 History sitagliptin phosphate 50 mg tablet 50 mg PO QDAY 04/02/25 05/03/25 History (Januvia) alendronate 70 mg tablet 70 mg PO QWEEK 05/04/25 04/27/25 History aspirin 81 mg capsule 81 mg PO DAILY 05/04/25 05/03/25 History hydralazine 25 mg tablet 25 mg PO TID 05/04/25 05/03/25 History insulin glargine 100 unit/mL (3 12 unit subcut BID 05/04/25 05/03/25 History mL) subcutaneous pen (Lantus Solostar U-100 Insulin) lisinopril 40 mg tablet 40 mg PO DAILY 05/04/25 05/03/25 History metoprolol succinate 50 mg 50 mg PO DAILY 05/04/25 05/03/25 History tablet,extended release 24 hr pantoprazole 40 mg tablet,delayed 40 mg PO DAILY 05/04/25 05/03/25 History release Allergy/AdvReac Type Severity Reaction Status Date / Time chlorhexidine Allergy Unknown Verified 05/04/25 13:41 Iodinated Contrast Media Allergy Other Verified 05/04/25 13:41 (CONTRASTS) iodine Allergy Unknown Verified 05/04/25 13:41 latex Allergy Rash Verified 05/04/25 13:41 Family History Other Diabetes Surgical History History of elbow surgery History of tonsillectomy and adenoidectomy 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 Social History household members: none Smoking Status: Never smoker alcohol intake: never substance use type: does not use EXAM Physical Exam Const Vital Signs: 05/04/25 13:41 05/04/25 13:45 05/04/25 13:45 Temperature 97.8 F Temperature Source Oral Pulse Rate 53 L Respiratory Rate 16 Respiratory Effort Normal Non-Labored Normal Non-Labored Respiratory Depth Normal Respiratory Pattern Normal Blood Pressure 114/61 Blood Pressure Mean 78 Pulse Ox 94 Oxygen Delivery Method Room Air 05/04/25 16:28 Temperature 97.8 F Temperature Source Oral Pulse Rate 77 Respiratory Rate 20 H Respiratory Effort Respiratory Depth Respiratory Pattern Blood Pressure 118/47 L Blood Pressure Mean 70 Pulse Ox 97 Oxygen Delivery Method Room Air MDM MDM MDM Narrative Medical decision making narrative: 79-year-old female with past medical history of DM fracture, CKD, HTN, HLD, history of upper GI bleed presents for evaluation of diarrhea and weakness. Triage note states shortness of breath however patient denies this to me. Patient states today she developed multiple episodes of diarrhea. She denies blood in the stool although states that occasionally looks dark. States she is concerned she may be dehydrated. Denies any abdominal pain. See physical exam findings. On chart review, patient had a colonoscopy with Dr. Campos in January 2024. She had a polyp in the cecum that was removed as well as congested mucosa in the entire examined colon. Diverticulosis without diverticulitis. Colonoscopy 3 years was recommended. She had an EGD on the same day that showed Z-line irregular and a small hiatal hernia with a nonbleeding duodenal ulcer. Differential diagnosis includes but is not limited to viral gastroenteritis, OSVALDO, dehydration, GI bleed, UTI. NS bolus ordered with laboratory workup. CBC without leukocytosis. Patient has baseline anemia of 10.3. Platelet count unremarkable. BMP shows hyperkalemia of 7.3 along with OSVALDO on CKD with a BUN of 102 and a creatinine of 9.26. On chart review, patient's baseline creatinine is about 2.85. Magnesium unremarkable. Patient has mild hyperglycemia 157. Hyperkalemia cocktail ordered with calcium gluconate, albuterol, sodium bicarb, and insulin. Lasix not given given her OSVALDO. EKG ordered. See below. Will place Roberts catheter. UA positive for UTI including blood. Although patient is not having any abdominal pain, need to rule out infected urolithiasis. CT abdomen pelvis without contrast ordered. On chart review, patient has a history of E. coli that is sensitive to Rocephin. Urine culture obtained. Rocephin ordered. Will add on blood cultures and lactic acid. Stool occult positive. Will give Protonix for possible upper GI bleed. Lactic acid unremarkable. Repeat potassium improved to 5.4. CT abdomen pelvis pending at this time. Patient will warrant admission. I spoke with Dr. Gallardo from the hospitalist service. She accepted admission to the ICU. Patient is still in the emergency department and she will repeat kidney function. She will await CT abdomen pelvis results. I did sign out to my partner, Dr. Coughlin, and informed him that the CT abdomen pelvis is pending at this time. Patient was updated on results and plan and confirmed understanding. EKG: Interpreted by me/EM physician: EKG shows normal sinus rhythm without any acute ischemic changes. Repeat EKG shows junctional bradycardia with heart rate of 41. 45 minutes of critical care time utilized in managing the patient. This is due to high probability of and deterioration of the patient based on the patient's condition and excludes any separately billable procedures. Impression: 1. Severe OSVALDO on CKD 2. Hyperkalemia, status post hyperkalemic cocktail-improving 3. GI bleed 4. Chronic anemia 5. UTI 6. Diarrhea Lab Data Labs: Laboratory Results - last 24 hr 05/04/25 05/04/25 05/04/25 14:20 14:30 15:48 WBC 10.8 RBC 3.61 L Hgb 10.3 L Hct 32.4 L MCV 89.8 MCH 28.5 MCHC 31.8 L RDW Std Deviation 56.4 H RDW Coeff of [place] 17.1 H Plt Count 241 MPV 10.0 Immature Gran % (Auto) 0.900 Neut % (Auto) 82.5 H Lymph % (Auto) 4.3 L [place] % (Auto) 10.8 H Eos % (Auto) 1.2 Baso % (Auto) 0.3 Absolute Neuts (auto) 8.9 H Absolute Lymphs (auto) 0.47 L Nucleated RBC % 0 Sodium 138 Potassium 7.3 H* Chloride 112 H Carbon Dioxide 10.7 L Anion Gap 15 BUN 102 H* Creatinine 9.26 H* Estim Creat Clear Calc 5.54 L* Est GFR (MDRD) Non-Af 4 L BUN/Creatinine Ratio 11.0 Glucose 157 H Lactic Acid < 1.0 Calcium 8.6 Magnesium 2.0 Urine Color Yellow Urine Clarity Sl. Cloudy Urine pH 5.0 Ur Specific [place] 1.030 Urine Protein 100 H Urine Glucose (UA) Normal Urine Ketones Negative Urine Occult Blood 50 H Urine Nitrite Negative Urine Bilirubin Negative Urine Urobilinogen Normal Ur Leukocyte Esterase 500 H Urine RBC 10-25 SEEN Urine WBC 50-100 SEEN Ur Squamous Epith Cells 0-5 SEEN Ur Transition Epith Cell 0-5 SEEN Urine Bacteria 2+ Urine Mucus 0 SEEN Discharge Plan Triage Chief Complaint: Shortness of Breath Other Complaint: Diarrhea Weakness ED Provider: Damon Sanders Dx/Rx/DC Orders Prescriptions: No Action amoxicillin-pot clavulanate 875-125 mg tablet 1 tab PO BID PRN carvedilol 12.5 mg tablet 6.25 mg PO BIDCM Januvia 50 mg tablet 50 mg PO QDAY rosuvastatin [Crestor] 40 mg tablet 40 mg PO QDAY insulin glargine-yfgn 100 unit/mL (3 mL) insulin pen 12 unit subcut BID furosemide [Lasix] 40 mg tablet 40 mg PO .4 days a week cholestyramine (with sugar) [Questran] 4 gram powder in packet 4 g PO BID Qty: 60 1RF Rx Instructions: administer w/meal at 2pm and 8pm; avoid other meds within 1hr before or 4-6hr after dose budesonide 3 mg capsule,delayed,extend.release 3 mg PO .COMPLEX Qty: 90 0RF Rx Instructions: 3 mg orally take 3 capsules once daily every morning; folic acid 1 MG tablet 1 mg PO DAILY@0800 calcium carbonate-vitamin D3 [Caltrate with Vitamin D3] 1 TAB tablet 1 tab PO BID citalopram 20 mg tablet 20 mg PO QHS ferrous sulfate [FeroSul] 325 mg (65 mg iron) tablet 325 mg PO DAILY amlodipine 5 mg Tablet 5 mg PO DAILY 30 Days Qty: 30 0RF potassium chloride 20 mEq Tablet,Er Particles/Crystals 20 meq PO DAILYCM 30 Days Qty: 30 0RF pantoprazole 40 mg Tablet,Delayed Release (Dr/Ec) 40 mg PO BID 30 Days Qty: 60 0RF pentoxifylline 400 mg tablet extended release 400 mg PO DAILY vitamin E 268 mg (400 unit) capsule 268 mg PO DAILY Primary Care Provider: Elena Mims Referrals: Elena Mims DO [Primary Care Provider] - Print Language: Thai
[2025-05-04 15:02] LABS: Color, Urine Yellow (Yellow); Glucose, Dipstick Normal (Normal); Ketone-Dipstick Negative (Negative); Leukocyte Esterase-Dipstick 500 /ul (Negative); Nitrite-Dipstick Negative (Negative); Occult Blood-Urine 50 /ul (Negative); Protein-Dipstick 100 mg/dl (Negative); Specific Gravity, Urine 1.030 (1.002-1.030); Urine Bilirubin Dipstick Negative (Negative)
--- NOTE | 2025-05-04 15:08 | ED.RN ---
patient in sinus rhythm 70s and then frequently going to the 30s. called for EKG.
[2025-05-04 15:13] LABS: Magnesium 2.0 mg/dL (1.5-2.2)
[2025-05-04 15:16] LABS: Anion Gap 15 (5-15); BUN 102 mg/dL (4-19); BUN/Creat Ratio 11.0 RATIO (10-20); Calcium,Total 8.6 mg/dL (7.6-11.0); Carbon Dioxide 10.7 mmol/L (21.0-32.0); Chloride 112 mmol/L (98-108); Estimated Creatinine Clearance 5.54 ml/min (50-250); Glucose 157 mg/dL (70-99); Potassium 7.3 mmol/L (3.3-5.1)
[2025-05-04 15:18] LABS: Red Blood Cells-Urine 10-25 SEEN /hpf (0-5)
[2025-05-04 15:20] LABS: Squamous Epithelial Cells - UA 0-5 SEEN /hpf (5-10); Transitional Epithelial - Ur 0-5 SEEN /hpf (0-5)
--- NOTE | 2025-05-04 15:21 | EKG12_ITS ---
Test Reason : RUTH Blood Pressure : */* mmHG Vent. Rate : 73 BPM Atrial Rate : 73 BPM P-R Int : 148 ms QRS Dur : 102 ms QT Int : 410 ms P-R-T Axes : 61 -29 54 degrees QTcB Int : 451 ms Normal sinus rhythm Normal ECG Confirmed by BETSY PAREDES, CLIFF ([id number]), editor producer EFRA RUIZ ([id number]) on 05/05/2025 11:02:19 AM Referred By: Confirmed By: CLIFF MEYER MD
[2025-05-04] MEDS: Albuterol *CONC* 2.5mg/0.5mL VIAL.NEB. 10 MG INHALATION (15:37)
[2025-05-04] MEDS: Calcium Gluconate IV 3 GM in Syringe 1 EACH IV (15:41)
--- NOTE | 2025-05-04 15:56 | EKG12_ITS ---
Test Reason : RUTH Blood Pressure : */* mmHG Vent. Rate : 41 BPM Atrial Rate : * BPM P-R Int : * ms QRS Dur : 86 ms QT Int : 458 ms P-R-T Axes : * -16 41 degrees QTcB Int : 377 ms Junctional bradycardia Abnormal ECG Confirmed by BETSY PAREDES, CLIFF ([id number]), desk editor EFRA RUIZ ([id number]) on 05/05/2025 11:02:30 AM Referred By: Confirmed By: CLIFF MEYER MD
[2025-05-04] MEDS: Sodium Bicarbonate 150 MEQ in Dextrose 5%-Water (1000mL Bag) 1,000 ML 250 MEQ IV (16:00)
[2025-05-04] MEDS: Pantoprazole Sodium 40 MG in 0.9% Normal Saline (100mL MB+) 100 ML 300 MG IV (16:24)
--- NOTE | 2025-05-04 16:45 | CT_ITS ---
PROCEDURE: ABDOMEN/PELVIS WITHOUT CONT 05/04/2025 REASON FOR EXAM: UTI, DIARRHEA TECHNIQUE: ABDOMEN/PELVIS WITHOUT CONT Noncontrast technique limits evaluation of the abdominal and pelvic viscera. Coronal and Sagittal reconstruction series were provided. One or more dose reduction techniques were used (e.g., Automated exposure control, adjustment of the mA and/or kV according to patient size, use of iterative reconstruction technique). RADIATION DOSE SUMMARY: CTDlvol: 54 mGy DLP: 1631 mGycm COMPARISON: 02/15/2024 FINDINGS: Bilateral hip arthroplasties produce streak artifact over the pelvis. Roberts catheter in the bladder. No bowel obstruction. No free air. No free-fluid. Normal abdominal aorta. There is a punctate calculus measuring 5 mm in the right renal pelvis but there is no hydronephrosis. Noncontrast images of the liver, spleen and pancreas are unremarkable. CT/Abdomen/Pelvis without Cont IMPRESSION: No acute abnormality. Nonobstructing nephrolithiasis. Reading Location: [id number]
[2025-05-04] MEDS: Ceftriaxone 2 GM in 0.9% Normal Saline (50mL MB+) 50 ML IV (17:17)
[2025-05-04] MEDS: 0.9% Normal Saline (1000mL) 1,000 ML 999 ML IV (17:44)
[2025-05-04 17:50] LABS: Potassium 5.4 mmol/L (3.3-5.1)
[2025-05-04 19:02] LABS: CPK Total, Creatine Kinase 72 U/L (24-195)
--- NOTE | 2025-05-04 19:06 | PCM.HP.STD ---
HPI - General General Date of Admission: 05/04/25 Date of Service: 05/04/25 Chief Complaint: Diarrhea and weakness HPI Narrative AZUL NAVARRETE, is a 79-year-old female history of diabetes, CKD, hypertension, upper GI bleed presented [facility] ED 05/04/2025 for evaluation of diarrhea and weakness. Today she developed multiple episodes of diarrhea and denied any overt blood but occasionally noted it looked dark. She also feels she is dehydrated though has been eating and drinking. Denies any abdominal pain, dysuria, fever, chills, shortness of breath, chest pain. In the ED temp 97.8, pulse rate 53, blood pressure 114/61 with respiratory rate of 16 and pulse ox 94% on room air. CBC with white blood cell count 10.8, hemoglobin 10.3 and though fecal occult positive hemoglobin is at baseline. BMP obtained revealed sodium of 138, potassium of 7.3 with chloride of 112 and bicarb 10.7, BUN 102 and creatinine 9.26 up from 2.84 several months ago. Patient noted to be in junctional bradycardia and was given K lowering cocktail and sodium bicarb. UA with leuk esterase, white blood cell count, bacteria concerning for UTI so she was also started on antibiotics. CT abdomen and pelvis no acute process. After interventions heart rate back in normal sinus rhythm and potassium 5.4 so hospitalist contacted for admission. Patient evaluated at bedside, reports that she has chronic diarrhea with her microscopic colitis but has been worse over the past week or so, she had an increase in her budesonide to 9 mg but this has not helped, on Monday she had nausea and vomiting and a queasy feeling and had increased diarrhea from that time. Notes she was eating and drinking but sounds as though there may have been some decreased p.o. intake because she said when she would drink water she did have increased diarrhea. Does note taking her medications and that her potassium was recently increased in the past 2 to 3 weeks. Denies any abdominal pain or fever, has been feeling lightheaded at home. [facility] Medical History Anemia Anemia Anxiety Candidal intertrigo Candidiasis of breast CKD (chronic kidney disease) Diabetes Duodenal ulcer Dyslipidemia Essential hypertension GI bleed History of anemia History of chronic kidney disease History of diabetes insipidus History of gastroesophageal reflux (GERD) History of hyperlipidemia History of hypertension History of irritable colon Hyperlipidemia Hypertension Kidney disease Lymphedema Microscopic colitis Morbid obesity Non-smoker Osteoarthritis Osteoporosis Stage 3b chronic kidney disease (CKD) Type II diabetes mellitus Upper GI bleed Home Medications ?Medication ?Instructions ?Recorded ?Last Taken ?Type folic acid 1 mg tablet 1 mg PO DAILY@0800 SUPPLEMENT 01/21/17 05/03/25 History calcium 600 mg (as 1 tab PO DAILY SUPPLEMENT 03/05/19 05/03/25 History carbonate)-vitamin D3 20 mcg (800 unit) tablet (Caltrate with Vitamin D3) citalopram 20 mg tablet 20 mg PO QHS mental health 01/22/22 05/03/25 History pentoxifylline 400 mg 400 mg PO DAILY PAD 02/15/24 05/03/25 History tablet,extended release vitamin E 268 mg (400 unit) capsule 268 mg PO DAILY Supplement 02/15/24 05/03/25 History ferrous sulfate 325 mg (65 mg 325 mg PO DAILY Supplement 06/05/24 05/03/25 History iron) tablet (FeroSul) amlodipine 5 mg tablet 5 mg PO DAILY 30 days #30 tabs 01/11/25 05/03/25 Rx potassium chloride 20 mEq 20 meq PO DAILYCM 30 days #30 tabs 01/11/25 05/03/25 Rx tablet,extended release(part/cryst) budesonide 3 mg 3 mg PO .COMPLEX Stomach Lining 04/02/25 05/03/25 Rx capsule,delayed,extended release #90 ea carvedilol 12.5 mg tablet 6.25 mg PO BIDCM 04/02/25 05/03/25 History furosemide 40 mg tablet (Lasix) 40 mg PO .4 days a week 04/02/25 05/03/25 History sitagliptin phosphate 50 mg tablet 50 mg PO QDAY 04/02/25 05/03/25 History (Januvia) alendronate 70 mg tablet 70 mg PO QWEEK 05/04/25 04/27/25 History aspirin 81 mg capsule 81 mg PO DAILY 05/04/25 05/03/25 History hydralazine 25 mg tablet 25 mg PO TID 05/04/25 05/03/25 History insulin glargine 100 unit/mL (3 12 unit subcut BID 05/04/25 05/03/25 History mL) subcutaneous pen (Lantus Solostar U-100 Insulin) lisinopril 40 mg tablet 40 mg PO DAILY 05/04/25 05/03/25 History metoprolol succinate 50 mg 50 mg PO DAILY 05/04/25 05/03/25 History tablet,extended release 24 hr pantoprazole 40 mg tablet,delayed 40 mg PO DAILY 05/04/25 05/03/25 History release Allergy/AdvReac Type Severity Reaction Status Date / Time chlorhexidine Allergy Unknown Verified 05/04/25 13:41 Iodinated Contrast Media Allergy Other Verified 05/04/25 13:41 (CONTRASTS) iodine Allergy Unknown Verified 05/04/25 13:41 latex Allergy Rash Verified 05/04/25 13:41 Family History Other Diabetes Surgical History History of elbow surgery History of tonsillectomy and adenoidectomy 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 Social History household members: none Smoking Status: Never smoker alcohol intake: never substance use type: does not use ROS ROS Narrative General: Denies fever/chills HENT: Denies headache, denies stuffy nose, denies sore throat EYES: Denies changes in vision Resp: Denies cough, denies shortness of breath Cardiac: Denies chest pain GI: Denies abdominal pain, has had increasing diarrhea and last week had a couple of days of nausea and vomiting : She is unsure if she has had any changes in urination Extremity: Denies new swelling MSK: Feeling generally weak Neuro: Denies any numbness/tingling Heme: Denies any new bleeding or bruising Skin: Denies rashes Psychiatric: No complaints voiced Vital Signs Vital Signs Vital Signs: 05/04/25 13:41 05/04/25 13:45 05/04/25 13:45 Temperature 97.8 F Temperature Source Oral Pulse Rate 53 L Respiratory Rate 16 Respiratory Effort Normal Non-Labored Normal Non-Labored Respiratory Depth Normal Respiratory Pattern Normal Blood Pressure 114/61 Blood Pressure Mean 78 Pulse Ox 94 Oxygen Delivery Method Room Air 05/04/25 16:28 05/04/25 17:28 05/04/25 17:49 Temperature 97.8 F 97.7 F L 97.7 F L Temperature Source Oral Oral Pulse Rate 77 60 68 Respiratory Rate 20 H 15 17 Respiratory Effort Respiratory Depth Respiratory Pattern Blood Pressure 118/47 L 115/52 L 116/52 L Blood Pressure Mean 70 73 73 Pulse Ox 97 94 95 Oxygen Delivery Method Room Air Room Air Weight Weight: 103.4 kg Body Mass Index (BMI) 43.0 Physical Exam Narrative General: Alert, oriented to place and year, no apparent distress HEENT: Atraumatic, normocephalic Eyes: Anicteric, normal conjunctiva, extraocular movements grossly intact Neck: Supple Respiratory: Clear to auscultation bilaterally, normal respiratory effort Cardiovascular: Regular rate and rhythm GI: Soft, nontender, nondistended Extremities: No significant pitting edema Musculoskeletal: Moving all extremities Neuro: No overt focal neurological deficits Skin: Does have a skin tear over the left berkowitz Psych: Cooperative Results Lab / Micro Data 05/04/25 14:20 05/04/25 17:10 Labs: Laboratory Results - last 24 hr 05/04/25 14:20: WBC 10.8, RBC 3.61 L, Hgb 10.3 L, Hct 32.4 L, MCV 89.8, MCH 28.5, MCHC 31.8 L, RDW Std Deviation 56.4 H, RDW Coeff of [place] 17.1 H, Plt Count 241, MPV 10.0, Immature Gran % (Auto) 0.900, Neut % (Auto) 82.5 H, Lymph % (Auto) 4.3 L, [place] % (Auto) 10.8 H, Eos % (Auto) 1.2, Baso % (Auto) 0.3, Absolute Neuts (auto) 8.9 H, Absolute Lymphs (auto) 0.47 L, Nucleated RBC % 0, Sodium 138, Potassium 7.3 H*, Chloride 112 H, Carbon Dioxide 10.7 L, Anion Gap 15, BUN 102 H*, Creatinine 9.26 H*, Estim Creat Clear Calc 5.54 L*, Est GFR (MDRD) Non-Af 4 L, BUN/Creatinine Ratio 11.0, Glucose 157 H, Calcium 8.6, Magnesium 2.0 05/04/25 14:30: Urine Color Yellow, Urine Clarity Sl. Cloudy, Urine pH 5.0, Ur Specific [place] 1.030, Urine Protein 100 H, Urine Glucose (UA) Normal, Urine Ketones Negative, Urine Occult Blood 50 H, Urine Nitrite Negative, Urine Bilirubin Negative, Urine Urobilinogen Normal, Ur Leukocyte Esterase 500 H, Urine RBC 10-25 SEEN, Urine WBC 50-100 SEEN, Ur Squamous Epith Cells 0-5 SEEN, Ur Transition Epith Cell 0-5 SEEN, Urine Bacteria 2+, Urine Mucus 0 SEEN 05/04/25 15:48: Lactic Acid < 1.0 05/04/25 17:10: Potassium 5.4 H, Total Creatine Kinase 72 Micro: Microbiology 05/04/25 14:20 Stool Stool Occult Blood (ANDRES) - Final Occult Blood Positive Assessment & Plan Assessment/Plan (1) Acute renal failure: (2) Urinary tract infection: (3) Diarrhea: PLAN: Plan # Acute on chronic renal failure -CT abdomen pelvis with no acute abnormalities no hydronephrosis -Suspect secondary to patient's home medications, furosemide, lisinopril, potassium (which was recently increased) in addition to her ongoing diarrhea/increased diarrhea and UTI -Holding potassium, lisinopril, Lasix -Urine studies ordered -I's and O's -Nephrology consult -IV fluids -CK WNL # Hyperkalemia -Potassium of 7.3 on arrival -EKG w/ junctional bradycardia and is now in normal sinus rhythm with improvement in potassium to 5.4 -K lowering cocktail given in ED w/ improvement, discussed with nephrology, gave Kayexalate and will continue IV fluids -Will monitor closely on telemetry -Renal diet -Trend BMPs # Abnormal UA with suspicion for UTI -UA with leuk esterase, white blood cells, bacteria, suspicious for UTI -Empiric antibiotics while pending further culture and sensitivity data # Acute on chronic diarrhea - Patient with chronic diarrhea diarrhea from microscopic colitis, recently had her budesonide increased to 9 mg but despite that has had further increased diarrhea over the past week, query if there could be something else going on given the worsening despite increase of her medication - Will check stool studies including fecal leukocytes and ova & parasites given the acute on chronic nature - May need to consider GI consult if not improving - Will continue budesonide, her home medicine #Hypertension - Patient was borderline hypotensive in the ED, continue IV fluids, holding home antihypertensives, add back as tolerated #Type 2 diabetes mellitus -Glucose checks and sliding scale insulin - Glucose 157 in the ED, decreasing long-acting insulin given patient will likely have a diet change while she is here and has had decreased p.o. intake, uptitrate as tolerated # History of upper GI bleed and fecal occult positive -Hemoglobin is at baseline and rectal with no overt blood -Monitor hemoglobin and will keep on PPI - If hemoglobin remained stable may be able to follow outpatient once patient has stabilized, if any drops or any further concerns may need inpatient GI evaluation #Depression/anxiety -Continue home medications #Morbid obesity -BMI documented as 43.1 kg/m? at time of admission -Complicates treatment, prognosis, outcomes -Recommend weight loss and lifestyle changes #DVT ppx: hep subq Marjorie Gallardo MD Charges/Coding Visit Charges Inpatient E&M: 27062 Init Hosp L2
--- NOTE | 2025-05-04 19:49 | ED.RN ---
Report called to [facility] in ICU
[2025-05-04] MEDS: 0.9% Saline Lock 10 ML Syringe IV (20:32)
[2025-05-04] MEDS: 0.9% Normal Saline (1000mL) 1,000 ML 100 ML IV (20:32)
[2025-05-04 21:14] LABS: Creatinine, Urine (random) 136.00 mg/dL (28.00-217.00); Protein, Urine (Random) 83.5 mg/dL (0.0-12.0); Protein:Creat Ratio 614 mg/g CRE (0-200); Urea Nitrogen, Urine 405 mg/dL (NO RANGE EST.)
[2025-05-04 21:47] LABS: Osmolality, Urine 337 mOsm/KG
[2025-05-04] MEDS: Heparin Injection (Vial) 5,000 UNIT/ML VIAL 5000 UNIT SC (21:49)
[2025-05-04] MEDS: Pantoprazole Sodium 40 MG in 0.9% Normal Saline (100mL MB+) 100 ML 330 MG IV (21:49)
[2025-05-04] MEDS: Insulin Glargine-YFGN 100 UNIT/ML Pen SC (21:49)
[2025-05-04] MEDS: 0.9% Normal Saline (250mL Bag) 250 ML 15 ML IV (21:50)
[2025-05-04 21:59] LABS: Anion Gap 15 (5-15); BUN 94 mg/dL (4-19); BUN/Creat Ratio 10.8 RATIO (10-20); Calcium,Total 8.5 mg/dL (7.6-11.0); Carbon Dioxide 13.1 mmol/L (21.0-32.0); Chloride 110 mmol/L (98-108); Estimated Creatinine Clearance 5.97 ml/min (50-250); Glucose 220 mg/dL (70-99); Potassium 5.5 mmol/L (3.3-5.1)
[2025-05-04] MEDS: Sodium Bicarbonate 150 MEQ in Dextrose 5%-Water (1000mL Bag) 1,000 ML 100 MEQ IV (22:53)
[2025-05-05] VITALS (24 sets, daily range): BP systolic 113–165; BP diastolic 42–132; PULSE 70–109; RESP 14–23; TEMP 36.3–37.4; O2SAT 91–96; BMI 43.9
[2025-05-05 05:00] LABS: Anion Gap 16 (5-15); BUN 92 mg/dL (4-19); BUN/Creat Ratio 10.7 RATIO (10-20); Calcium,Total 8.7 mg/dL (7.6-11.0); Carbon Dioxide 14.2 mmol/L (21.0-32.0); Chloride 111 mmol/L (98-108); Estimated Creatinine Clearance 6.04 ml/min (50-250); Glucose 132 mg/dL (70-99); Potassium 4.7 mmol/L (3.3-5.1)
[2025-05-05] MEDS: Heparin Injection (Vial) 5,000 UNIT/ML VIAL 5000 UNIT SC ×3 (06:01→20:26)
[2025-05-05 06:34] LABS: Hematocrit 29.4 % (37-47); Hemoglobin 9.4 g/dL (12.0-15.0); Immature Granulocytes Count 0.120 X10^3/uL (0.0-0.0); Mean Corp Hgb Conc 32.0 g/dL (32-36); Mean Corpuscular Volume 87.8 fL (81-99); Mean Platelet Vol. 9.7 fl (6.2-12.0); NRBC Flagged by Analyzer 0 % (0-5); POSITIVE DIFFERENTIAL YES; Platelet Count 219 K/mm3 (150-450); RBC Distribution Width CV 16.7 % (11.6-14.6); RBC Distribution Width SD 53.4 fl (35.1-43.9); Red Blood Count 3.35 M/mm3 (4.2-5.4); White Blood Count 11.6 K/mm3 (4.4-11.0)
[2025-05-05 07:18] LABS: Anion Gap 16 (5-15); BUN 91 mg/dL (4-19); BUN/Creat Ratio 10.4 RATIO (10-20); Calcium,Total 8.6 mg/dL (7.6-11.0); Carbon Dioxide 15.2 mmol/L (21.0-32.0); Chloride 111 mmol/L (98-108); Estimated Creatinine Clearance 5.97 ml/min (50-250); Glucose 143 mg/dL (70-99); Potassium 4.7 mmol/L (3.3-5.1)
--- NOTE | 2025-05-05 07:18 | PN.HOSP_ITS ---
Reason for Visit Reason for Visit: Diagnoses Acute kidney failure, unspecified (05/04/25) Urinary tract infection, site not specified (05/04/25) Diarrhea, unspecified (05/04/25) Subjective Subjective Feeling well. No new issues. Objective Data Objective Data Vital Signs: Vital Signs Temp Pulse Resp BP Pulse Ox O2 Del Method 36.7 C 79 16 135/42 H 95 Room Air 05/05/25 04:00 05/05/25 06:00 05/05/25 06:00 05/05/25 06:00 05/05/25 06:00 05/05/25 06:00 Oxygen Delivery Method Room Air Weight: 105.6 kg Body Mass Index (BMI) 43.9 Intake & Output: Intake and Output for Last 24 Hours 05/03/25 05/04/25 05/05/25 23:59 23:59 23:59 Intake Total 3916.67 / 3916.67 Output Total 250 / 250 Balance 3915.67 / 3915.67 -250 / -250 Lab / Micro Data 05/05/25 06:15 05/05/25 06:15 Labs: Laboratory Results - last 24 hr 05/04/25 14:20: WBC 10.8, RBC 3.61 L, Hgb 10.3 L, Hct 32.4 L, MCV 89.8, MCH 28.5, MCHC 31.8 L, RDW Std Deviation 56.4 H, RDW Coeff of Juan Diego 17.1 H, Plt Count 241, MPV 10.0, Immature Gran % (Auto) 0.900, Neut % (Auto) 82.5 H, Lymph % (Auto) 4.3 L, [place] % (Auto) 10.8 H, Eos % (Auto) 1.2, Baso % (Auto) 0.3, A bsolute Neuts (auto) 8.9 H, Absolute Lymphs (auto) 0.47 L, Nucleated RBC % 0, Sodium 138, Potassium 7.3 H*, Chloride 112 H, Carbon Dioxide 10.7 L, Anion Gap 15, BUN 102 H*, Creatinine 9.26 H*, Estim Creat Clear Calc 5.54 L*, Est GFR (MDRD) Non-Af 4 L, BUN/Creatinine Ratio 11.0, Glucose 157 H, Calcium 8.6, Magnesium 2.0 05/04/25 14:30: Urine Color Yellow, Urine Clarity Sl. Cloudy, Urine pH 5.0, Ur Specific [place] 1.030, Urine Protein 100 H, Urine Glucose (UA) Normal, Urine Ketones Negative, Urine Occult Blood 50 H, Urine Nitrite Negative, Urine Bilirubin Negative, Urine Urobilinogen Normal, Ur Leukocyte Esterase 500 H, Urine RBC 10-25 SEEN, Urine WBC 50-100 SEEN, Ur Squamous Epith Cells 0-5 SEEN, Ur Transition Epith Cell 0-5 SEEN, Urine Bacteria 2+, Urine Mucus 0 SEEN 05/04/25 15:48: Lactic Acid < 1.0 05/04/25 17:10: Potassium 5.4 H, Total Creatine Kinase 72 05/04/25 20:30: Sodium 139, Potassium 5.5 H, Chloride 110 H, Carbon Dioxide 13.1 L, Anion Gap 15, BUN 94 H, Creatinine 8.66 H*, Estim Creat Clear Calc 5.97 L*, E st GFR (MDRD) Non-Af 4 L, BUN/Creatinine Ratio 10.8, Glucose 220 H, Calcium 8.5 05/04/25 20:40: Urine Osmolality 337, U Random Total Protein 83.5 H, Ur Random Sodium 45, Urine Creatinine 136.00, Protein/Creatinin Ratio 614 H, Urine Potassium 20.7, Urine Chloride 39, Urine Urea Nitrogen 405 05/04/25 21:08: POC Glucose 175 H 05/04/25 : Sodium Cancelled, Potassium Cancelled, Chloride Cancelled, Carbon Dioxide Cancelled, Anion Gap Cancelled, BUN Cancelled, Creatinine Cancelled, Estim Creat Clear Calc Cancelled, Est GFR (MDRD) Non-Af Cancelled, BUN/Creatinine Ratio Cancelled, Glucose Cancelled, Calcium Cancelled 05/05/25 00:15: Sodium Cancelled, Potassium Cancelled, Chloride Cancelled, Carbon Dioxide Cancelled, Anion Gap Cancelled, BUN Cancelled, Creatinine Cancelled, Estim Creat Clear Calc Cancelled, Est GFR (MDRD) Non-Af Cancelled, BUN/Creatinine Ratio Cancelled, Glucose Cancelled, Calcium Cancelled 05/05/25 01:00: Sodium Cancelled, Potassium Cancelled, Chloride Cancelled, Carbon Dioxide Cancelled, Anion Gap Cancelled, BUN Cancelled, Creatinine Cancelled, Estim Creat Clear Calc Cancelled, Est GFR (MDRD) Non-Af Cancelled, BUN/Creatinine Ratio Cancelled, Glucose Cancelled, Calcium Cancelled 05/05/25 03:55: Sodium 141, Potassium 4.7, Chloride 111 H, Carbon Dioxide 14.2 L , Anion Gap 16 H, BUN 92 H, Creatinine 8.59 H*, Estim Creat Clear Calc 6.04 L*, Est GFR (MDRD) Non-Af 4 L, BUN/Creatinine Ratio 10.7, Glucose 132 H, Calcium 8.7 05/05/25 06:15: WBC 11.6 H, RBC 3.35 L, Hgb 9.4 L, Hct 29.4 L, MCV 87.8, MCH 28.1, MCHC 32.0, RDW Std Deviation 53.4 H, RDW Coeff of [place] 16.7 H, Plt Count 219, MPV 9.7, Immature Gran % (Auto) 1.000 H, Neut % (Auto) 79.2 H, Lymph % (Auto) 3.1 L, [place] % (Auto) 12.0 H, Eos % (Auto) 4.4, Baso % (Auto) 0.3, A bsolute Neuts (auto) 9.2 H, Absolute Lymphs (auto) 0.36 L, Nucleated RBC % 0 Micro: Microbiology 05/04/25 22:30 Stool Stool Lactoferrin - Final 05/04/25 14:20 Stool Stool Occult Blood (ANDRES) - Final Occult Blood Positive Radiography Diagnostic Testing: Radiology Impression Abdomen/Pelvis CT 05/04/25 16:45 IMPRESSION: No acute abnormality. Nonobstructing nephrolithiasis. Reading Location: [facility] Physical Exam Const alert and no apparent distress HEENT head/scalp atraumatic and moist oral mucous membranes Resp normal respiratory effort, no retractions, no use of accessory muscles and clear to auscultation bilaterally Cardio regular rate, regular rhythm, S1 normal heart sound and S2 normal heart sound GI normal to inspection, nondistended, normoactive bowel sounds, soft to palpation, non-tender and non-distended Extremity normal to inspection, full ROM and no clubbing, cyanosis or edema Neuro Sensorium / Orientation: awake, alert, oriented to person, oriented to place and oriented to time Assessment & Plan Assessment/Plan (1) OSVALDO (acute kidney injury): PLAN: Baseline creatinine around 2.84 (from December 2024) Up to 9.26 on admission. Improved slightly with 8.69 Suspect prerenal azotemia and ATN. (2) Hyperkalemia: PLAN: 2/2 OSVALDO improved after kayexalate (3) Abnormal urinalysis: PLAN: concentrated (sg 1.030). unclear if UTI. continue CTX for now. Follow up UCx. (4) Metabolic acidosis: PLAN: 2/2 OSVALDO. On sodium bicarbonate. PLAN: Plan Chronic conditions: * DM2: uncontrolled. continue glargine and SSI. * HTN: hold lisinopril given OSVALDO VTE prophylaxis: SQ heparin. Charges/Coding Visit Charges Inpatient E&M: 23064 Subs Hosp L2
[2025-05-05] MEDS: 0.9% Normal Saline (1000mL) 1,000 ML 150 ML IV (09:44)
[2025-05-05] MEDS: Pantoprazole Sodium 40 MG in 0.9% Normal Saline (100mL MB+) 100 ML 330 MG IV ×2 (09:47→20:26)
[2025-05-05] MEDS: 0.9% Saline Lock 10 ML Syringe IV (09:50)
[2025-05-05] MEDS: Budesonide 3 MG CAPSULE.EC 9 MG PO (09:56)
[2025-05-05] MEDS: Sodium Bicarbonate 150 MEQ in Dextrose 5%-Water (1000mL Bag) 1,000 ML 100 MEQ IV ×2 (10:48→21:47)
--- NOTE | 2025-05-05 11:33 | CASEMGMT ---
DEBRA GOLD Assessment Face to Face with patient for initial transition planning/care coordination assessment. RN ASIF introduced self and role at [facility], pt voices understanding. Pt is A&Ox3 and is resting comfortably in bed and is calm. Care providers, pharmacy, and demographics verified. Admitting dx: Acute Renal Failure LACE Strata: 3 PCP: Elena Mims Specialists: Luke (Podiatry), Marcelo (Nephro), Friend (GI), Chislik (Ortho) Preferred Pharmacy: [facility] Insurance: [employer] [facility] Prescription Benefit: Yes LNOK: Letha (Niece) Living Arrangements: Pt lives alone in a ground level apartment with one step to enter ADLs/IADLs: Pt states that she is indep @ baseline but is currently feeling weak Transportation: Self. Pt states that her niece is able to drive but that she lives in [place]. Pt is concerned that she would not have a ride home if she DC's home from [facility]. CM to follow. DME: [facility] with sufficient supplies and pen needles for insulin shots. Pulse ox. Raised TS. Cane. Crutches. FWW. Rollator. Grab bars. HHC/SNF: Hx @ [facility] for SNF stay and OP Tx. Hx with [facility] HH Pt?s goal: Return to PLOF Plan: TBD. Anticipate SNF vs home with C. Nephro consulted. CM to follow for HD needs. PT is ordered and pending. Pt states that she cares for her Left leg wound @ home alone. Pt states that she does not have any support at home. Pt states that it is too early to tell what she will need or want @ the time of DC. CM to follow. Ketty Villanueva RN, CM
[2025-05-05] MEDS: Insulin Glargine-YFGN 100 UNIT/ML Pen 12 UNIT SC ×2 (12:20→20:27)
[2025-05-05] MEDS: Glucerna Shake 120 ML LIQUID PO ×2 (13:11→16:05)
--- NOTE | 2025-05-05 16:14 | PCM.CONS.R ---
Assessment & Plan Assessment/Plan (1) OSVALDO (acute kidney injury): PLAN: CKD stage IV at baseline. Usual creatinine is between 2.5-2.7. Chronic history of GI issues which makes medication administration difficult. Has hypokalemia in general, requires potassium supplements. Has a low-grade proteinuria, last estimation about 600 mg, he is on lisinopril for that. Came in with worsening diarrhea. Workup as per primary. CT abdomen without any hydronephrosis. Previous serologies negative. Most likely volume depletion mediated. Creatinine 8.6. No immediate indications for renal replacement therapy, will wait 1 more day to see if she will improve with IV fluids. Acidosis. Due to renal failure. Likely GI losses as well. On bicarbonate drip Hyperkalemia. Should improve with correction of acidosis. HPI Consult Data Date of Consult: 05/05/25 HPI Narrative Reason for Consultation: osvaldo HPI Narrative: AZUL NAVARRETE, is a 79 F who presents to the hospital with diarrhea. Nephrology on consultation in view of acute renal failure. She is well-known to me from office. She has known history of CKD stage IV, baseline creatinine about 2.5 or so. She has longstanding history of GI issues, specifically diarrhea. She has seen gastroenterology. Was diagnosed with microscopic colitis, has been on steroids on and off. Even then her diarrhea has been persistent. Now presented with worsening diarrhea. Stool studies sent, C. difficile positive. Currently has an indwelling Guevara catheter, urine output is present. Creatinine 8.6. No breathing difficulties. She had a similar hospitalization with GI bleed and acute renal failure few months ago, eventually recovered renal function. Denies taking any [id number] medications. [facility] Medical History (Updated 05/05/25 @ 07:[address] Junior Georges, DO) Microscopic colitis Anemia CKD (chronic kidney disease) Osteoarthritis History of irritable colon Essential hypertension Dyslipidemia Anxiety Diabetes Kidney disease GI bleed Non-smoker Upper GI bleed Duodenal ulcer Candidiasis of breast History of anemia History of hypertension History of chronic kidney disease History of hyperlipidemia History of diabetes insipidus Candidal intertrigo Stage 3b chronic kidney disease (CKD) Osteoporosis Hyperlipidemia Anemia Hypertension Lymphedema Morbid obesity History of gastroesophageal reflux (GERD) Type II diabetes mellitus Home Medications ?Medication ?Instructions ?Recorded ?Last Taken ?Type folic acid 1 mg tablet 1 mg PO DAILY@0800 SUPPLEMENT 01/21/17 05/03/25 History calcium 600 mg (as 1 tab PO DAILY SUPPLEMENT 03/05/19 05/03/25 History carbonate)-vitamin D3 20 mcg (800 unit) tablet (Caltrate with Vitamin D3) citalopram 20 mg tablet 20 mg PO QHS mental health 01/22/22 05/03/25 History pentoxifylline 400 mg 400 mg PO DAILY PAD 02/15/24 05/03/25 History tablet,extended release vitamin E 268 mg (400 unit) capsule 268 mg PO DAILY Supplement 02/15/24 05/03/25 History ferrous sulfate 325 mg (65 mg 325 mg PO DAILY Supplement 06/05/24 05/03/25 History iron) tablet (FeroSul) amlodipine 5 mg tablet 5 mg PO DAILY 30 days #30 tabs 01/11/25 05/03/25 Rx potassium chloride 20 mEq 20 meq PO DAILYCM 30 days #30 tabs 01/11/25 05/03/25 Rx tablet,extended release(part/cryst) budesonide 3 mg 3 mg PO .COMPLEX Stomach Lining 04/02/25 05/03/25 Rx capsule,delayed,extended release #90 ea carvedilol 12.5 mg tablet 6.25 mg PO BIDCM 04/02/25 05/03/25 History furosemide 40 mg tablet (Lasix) 40 mg PO .4 days a week 04/02/25 05/03/25 History sitagliptin phosphate 50 mg tablet 50 mg PO QDAY 04/02/25 05/03/25 History (Januvia) alendronate 70 mg tablet 70 mg PO QWEEK 05/04/25 04/27/25 History aspirin 81 mg capsule 81 mg PO DAILY 05/04/25 05/03/25 History hydralazine 25 mg tablet 25 mg PO TID 05/04/25 05/03/25 History insulin glargine 100 unit/mL (3 12 unit subcut BID 05/04/25 05/03/25 History mL) subcutaneous pen (Lantus Solostar U-100 Insulin) lisinopril 40 mg tablet 40 mg PO DAILY 05/04/25 05/03/25 History metoprolol succinate 50 mg 50 mg PO DAILY 05/04/25 05/03/25 History tablet,extended release 24 hr pantoprazole 40 mg tablet,delayed 40 mg PO DAILY 05/04/25 05/03/25 History release Allergy/AdvReac Type Severity Reaction Status Date / Time chlorhexidine Allergy Unknown Verified 05/04/25 13:41 Iodinated Contrast Media Allergy Other Verified 05/04/25 13:41 (CONTRASTS) iodine Allergy Unknown Verified 05/04/25 13:41 latex Allergy Rash Verified 05/04/25 13:41 Family History Other Diabetes Surgical History History of elbow surgery History of tonsillectomy and adenoidectomy 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 Social History household members: none Smoking Status: Never smoker alcohol intake: never substance use type: does not use ROS ROS Narrative Negative except above Physical Exam Narrative Alert awake oriented x 3 no obvious distress no pallor no icterus no JVD s1s2 no murmurs lungs clear abdomen soft no organomegaly no edema no cyanosis guevara + Lab / Micro Data 05/05/25 06:15 05/05/25 06:15 Labs: Laboratory Results - last 24 hr 05/04/25 15:48: Lactic Acid < 1.0 05/04/25 17:10: Potassium 5.4 H, Total Creatine Kinase 72 05/04/25 20:30: Sodium 139, Potassium 5.5 H, Chloride 110 H, Carbon Dioxide 13.1 L, Anion Gap 15, BUN 94 H, Creatinine 8.66 H*, Estim Creat Clear Calc 5.97 L*, Est GFR (MDRD) Non-Af 4 L, BUN/Creatinine Ratio 10.8, Glucose 220 H, Calcium 8.5 05/04/25 20:40: Urine Osmolality 337, U Random Total Protein 83.5 H, Ur Random Sodium 45, Urine Creatinine 136.00, Protein/Creatinin Ratio 614 H, Urine Potassium 20.7, Urine Chloride 39, Urine Urea Nitrogen 405 05/04/25 21:08: POC Glucose 175 H 05/04/25 : Sodium Cancelled, Potassium Cancelled, Chloride Cancelled, Carbon Dioxide Cancelled, Anion Gap Cancelled, BUN Cancelled, Creatinine Cancelled, Estim Creat Clear Calc Cancelled, Est GFR (MDRD) Non-Af Cancelled, BUN/Creatinine Ratio Cancelled, Glucose Cancelled, Calcium Cancelled 05/05/25 00:15: Sodium Cancelled, Potassium Cancelled, Chloride Cancelled, Carbon Dioxide Cancelled, Anion Gap Cancelled, BUN Cancelled, Creatinine Cancelled, Estim Creat Clear Calc Cancelled, Est GFR (MDRD) Non-Af Cancelled, BUN/Creatinine Ratio Cancelled, Glucose Cancelled, Calcium Cancelled 05/05/25 01:00: Sodium Cancelled, Potassium Cancelled, Chloride Cancelled, Carbon Dioxide Cancelled, Anion Gap Cancelled, BUN Cancelled, Creatinine Cancelled, Estim Creat Clear Calc Cancelled, Est GFR (MDRD) Non-Af Cancelled, BUN/Creatinine Ratio Cancelled, Glucose Cancelled, Calcium Cancelled 05/05/25 03:55: Sodium 141, Potassium 4.7, Chloride 111 H, Carbon Dioxide 14.2 L, Anion Gap 16 H, BUN 92 H, Creatinine 8.59 H*, Estim Creat Clear Calc 6.04 L*, Est GFR (MDRD) Non-Af 4 L, BUN/Creatinine Ratio 10.7, Glucose 132 H, Calcium 8.7 05/05/25 06:15: WBC 11.6 H, RBC 3.35 L, Hgb 9.4 L, Hct 29.4 L, MCV 87.8, MCH 28.1, MCHC 32.0, RDW Std Deviation 53.4 H, RDW Coeff of [place] 16.7 H, Plt Count 219, MPV 9.7, Immature Gran % (Auto) 1.000 H, Neut % (Auto) 79.2 H, Lymph % (Auto) 3.1 L, [place] % (Auto) 12.0 H, Eos % (Auto) 4.4, Baso % (Auto) 0.3, Absolute Neuts (auto) 9.2 H, Absolute Lymphs (auto) 0.36 L, Nucleated RBC % 0, Sodium 143, Potassium 4.7, Chloride 111 H, Carbon Dioxide 15.2 L, Anion Gap 16 H, BUN 91 H, Creatinine 8.69 H*, Estim Creat Clear Calc 5.97 L*, Est GFR (MDRD) Non-Af 4 L, BUN/Creatinine Ratio 10.4, Glucose 143 H, Calcium 8.6 05/05/25 08:19: POC Glucose 129 H 05/05/25 11:47: POC Glucose 114 H Micro: Microbiology 05/04/25 22:30 Stool Stool Lactoferrin - Final 05/04/25 22:30 Stool Enteric Bacteriology - Final 05/04/25 22:30 Stool C. difficile GDH Antigen & Toxins - Final Toxigenic C. difficile 05/04/25 22:30 Stool Clostridioides difficile (PCR) - Final 05/04/25 14:30 Urine, Clean Catch Urine Culture - Preliminary GNR lactose sticker hand 05/04/25 14:20 Stool Stool Occult Blood (ANDRES) - Final Occult Blood Positive Imaging Radiology Impression Abdomen/Pelvis CT 05/04/25 16:45 IMPRESSION: No acute abnormality. Nonobstructing nephrolithiasis. Reading [facility]
[2025-05-05] MEDS: Vancomycin 125 MG/5 ML Susp PO.SYRINGE PO (20:24)
[2025-05-06] VITALS (22 sets, daily range): BP systolic 133–163; BP diastolic 49–77; PULSE 64–103; RESP 15–23; TEMP 36.7–37.2; O2SAT 92–100; BMI 44.2
[2025-05-06] MEDS: Vancomycin 125 MG/5 ML Susp PO.SYRINGE PO ×5 (01:06→23:46)
[2025-05-06 04:37] LABS: Hematocrit 26.5 % (37-47); Hemoglobin 8.9 g/dL (12.0-15.0); Immature Granulocytes Count 0.100 X10^3/uL (0.0-0.0); Mean Corp Hgb Conc 33.6 g/dL (32-36); Mean Corpuscular Volume 84.9 fL (81-99); Mean Platelet Vol. 9.5 fl (6.2-12.0); NRBC Flagged by Analyzer 0 % (0-5); Platelet Count 192 K/mm3 (150-450); RBC Distribution Width CV 16.4 % (11.6-14.6); RBC Distribution Width SD 51.1 fl (35.1-43.9); Red Blood Count 3.12 M/mm3 (4.2-5.4); White Blood Count 8.7 K/mm3 (4.4-11.0)
[2025-05-06 05:05] LABS: Anion Gap 14 (5-15); BUN 83 mg/dL (4-19); BUN/Creat Ratio 11.1 RATIO (10-20); Calcium,Total 8.0 mg/dL (7.6-11.0); Carbon Dioxide 21.4 mmol/L (21.0-32.0); Chloride 107 mmol/L (98-108); Estimated Creatinine Clearance 6.95 ml/min (50-250); Glucose 119 mg/dL (70-99); Potassium 4.2 mmol/L (3.3-5.1)
[2025-05-06] MEDS: Heparin Injection (Vial) 5,000 UNIT/ML VIAL 5000 UNIT SC ×3 (06:23→20:03)
[2025-05-06] MEDS: 0.9% Saline Lock 10 ML Syringe IV ×4 (06:29→19:50)
--- NOTE | 2025-05-06 07:04 | PCM.PN.HOSP ---
Reason for Visit Reason for Visit: Diagnoses Acidosis, unspecified (05/04/25) Hyperkalemia (05/04/25) Acute kidney failure, unspecified (05/04/25) Urinary tract infection, site not specified (05/04/25) Diarrhea, unspecified (05/04/25) Unspecified abnormal findings in urine (05/04/25) Subjective Subjective Feeling well. No events overnight. No further diarrhea. Objective Data Objective Data Vital Signs: Vital Signs Temp Pulse Resp BP Pulse Ox O2 Del Method 36.7 C 79 18 146/61 H 95 Room Air 05/06/25 03:00 05/06/25 06:00 05/06/25 06:00 05/06/25 06:00 05/06/25 06:00 05/06/25 06:00 Oxygen Delivery Method Room Air Weight: 106.3 kg Body Mass Index (BMI) 44.2 Intake & Output: Intake and Output for Last 24 Hours 05/04/25 05/05/25 05/06/25 23:59 23:59 23:59 Intake Total 3916.67 / 3916.67 4103.58 / 4103.58 100 / 100 Output Total 1125 / 1125 400 / 400 Balance 3915.67 / 3915.67 2978.58 / 2978.58 -300 / -300 Lab / Micro Data 05/06/25 04:25 05/06/25 04:25 Labs: Laboratory Results - last 24 hr 05/05/25 06:15: Sodium 143, Potassium 4.7, Chloride 111 H, Carbon Dioxide 15.2 L, Anion Gap 16 H, BUN 91 H, Creatinine 8.69 H*, Estim Creat Clear Calc 5.97 L*, Est GFR (MDRD) Non-Af 4 L, BUN/Creatinine Ratio 10.4, Glucose 143 H, Calcium 8.6 05/05/25 08:19: POC Glucose 129 H 05/05/25 11:47: POC Glucose 114 H 05/05/25 16:03: POC Glucose 166 H 05/05/25 20:23: POC Glucose 129 H 05/06/25 04:25: WBC 8.7, RBC 3.12 L, Hgb 8.9 L, Hct 26.5 L, MCV 84.9, MCH 28.5, MCHC 33.6, RDW Std Deviation 51.1 H, RDW Coeff of [place] 16.4 H, Plt Count 192, MPV 9.5, Immature Gran % (Auto) 1.100 H, Neut % (Auto) 71.1 H, Lymph % (Auto) 8.6 L, [place] % (Auto) 15.1 H, Eos % (Auto) 3.6, Baso % (Auto) 0.5, Absolute Neuts (auto) 6.2, Absolute Lymphs (auto) 0.75 L, Nucleated RBC % 0, Sodium 143, Potassium 4.2, Chloride 107, Carbon Dioxide 21.4, Anion Gap 14, BUN 83 H, Creatinine 7.50 H*, Estim Creat Clear Calc 6.95 L*, Est GFR (MDRD) Non-Af 5 L, BUN/Creatinine Ratio 11.1, Glucose 119 H, Calcium 8.0 Micro: Microbiology 05/04/25 22:30 Stool Stool Lactoferrin - Final 05/04/25 22:30 Stool Enteric Bacteriology - Final 05/04/25 22:30 Stool C. difficile GDH Antigen & Toxins - Final Toxigenic C. difficile 05/04/25 22:30 Stool Clostridioides difficile (PCR) - Final 05/04/25 14:30 Urine, Clean Catch Urine Culture - Preliminary GNR lactose group managing director 05/04/25 14:20 Stool Stool Occult Blood (ANDRES) - Final Occult Blood Positive Physical Exam Const alert HEENT head/scalp atraumatic and moist oral mucous membranes Resp normal respiratory effort, no retractions, no use of accessory muscles and clear to auscultation bilaterally Cardio regular rate, regular rhythm, S1 normal heart sound and S2 normal heart sound GI normal to inspection, nondistended, normoactive bowel sounds, soft to palpation, non-tender and non-distended Extremity Extremity Narrative: edema in RUE where IV had infiltrated. Neuro Sensorium / Orientation: awake and alert Assessment & Plan Assessment/Plan (1) OSVALDO (acute kidney injury): PLAN: Baseline creatinine around 2.84 (from December 2024) Up to 9.26 on admission. Improved to 7.5 Suspect prerenal azotemia from diarrhea and ATN. (2) Hyperkalemia: PLAN: 2/2 OSVALDO improved after kayexalate (3) Abnormal urinalysis: PLAN: concentrated (sg 1.030). unclear if UTI. continue CTX for now. Follow up UCx showing 25-50k GNR. (4) Metabolic acidosis: PLAN: 2/2 OSVALDO. Improving. On sodium bicarbonate. (5) C. difficile colitis: PLAN: POA. On Vancomycin PLAN: Plan Chronic conditions: DM2: uncontrolled. continue glargine and SSI. HTN: hold lisinopril given OSVALDO anemia: stable at her baseline. likely drop in her hemoglobin here was hemodilutional from the IVF. VTE prophylaxis: SQ heparin. Charges/Coding Visit Charges Inpatient E&M: 23986 Subs Hosp L2
[2025-05-06] MEDS: Sodium Bicarbonate 150 MEQ in Dextrose 5%-Water (1000mL Bag) 1,000 ML 100 MEQ IV (08:19)
[2025-05-06] MEDS: Glucerna Shake 120 ML LIQUID PO (08:28)
[2025-05-06] MEDS: Budesonide 3 MG CAPSULE.EC 9 MG PO (08:29)
[2025-05-06] MEDS: Pantoprazole Sodium 40 MG in 0.9% Normal Saline (100mL MB+) 100 ML 330 MG IV (10:49)
[2025-05-06] MEDS: Insulin Glargine-YFGN 100 UNIT/ML Pen 12 UNIT SC (10:55)
[2025-05-06] MEDS: 0.9% Normal Saline (1000mL) 1,000 ML 100 ML IV ×2 (11:22→22:34)
--- NOTE | 2025-05-06 12:18 | PCM.PN.REN ---
Subjective Subjective diarrhea better Objective Data Objective Data Vital Signs: Vital Signs Temp Pulse Resp BP Pulse Ox O2 Del Method 98.8 F 94 22 H 142/67 H 94 Room Air 05/06/25 11:00 05/06/25 11:00 05/06/25 11:00 05/06/25 11:00 05/06/25 11:00 05/06/25 11:00 Oxygen Delivery Method Room Air Weight: 106.3 kg Body Mass Index (BMI) 44.2 Intake & Output: Intake and Output for Last 24 Hours 05/04/25 05/05/25 05/06/25 23:59 23:59 23:59 Intake Total 3916.67 / 3916.67 4103.58 / 4103.58 2165.00 / 2165.00 Output Total 1125 / 1125 750 / 750 Balance 3915.67 / 3915.67 2978.58 / 2978.58 1415.00 / 1415.00 Lab / Micro Data 05/06/25 04:25 05/06/25 04:25 Labs: Laboratory Results - last 24 hr 05/05/25 16:03: POC Glucose 166 H 05/05/25 20:23: POC Glucose 129 H 05/06/25 04:25: WBC 8.7, RBC 3.12 L, Hgb 8.9 L, Hct 26.5 L, MCV 84.9, MCH 28.5, MCHC 33.6, RDW Std Deviation 51.1 H, RDW Coeff of [place] 16.4 H, Plt Count 192, MPV 9.5, Immature Gran % (Auto) 1.100 H, Neut % (Auto) 71.1 H, Lymph % (Auto) 8.6 L, [place] % (Auto) 15.1 H, Eos % (Auto) 3.6, Baso % (Auto) 0.5, Absolute Neuts (auto) 6.2, Absolute Lymphs (auto) 0.75 L, Nucleated RBC % 0, Sodium 143, Potassium 4.2, Chloride 107, Carbon Dioxide 21.4, Anion Gap 14, BUN 83 H, Creatinine 7.50 H*, Estim Creat Clear Calc 6.95 L*, Est GFR (MDRD) Non-Af 5 L, BUN/Creatinine Ratio 11.1, Glucose 119 H, Calcium 8.0 05/06/25 08:16: POC Glucose 95 Micro: Microbiology 05/04/25 14:30 Urine, Clean Catch Urine Culture - Preliminary Escherichia coli GNR lactose senior net application developer 05/04/25 22:30 Stool Stool Lactoferrin - Final 05/04/25 22:30 Stool Enteric Bacteriology - Final 05/04/25 22:30 Stool C. difficile GDH Antigen & Toxins - Final Toxigenic C. difficile 05/04/25 22:30 Stool Clostridioides difficile (PCR) - Final 05/04/25 14:20 Stool Stool Occult Blood (ANDRES) - Final Occult Blood Positive Physical Exam Narrative Alert awake oriented x 3 no obvious distress no pallor no icterus no JVD s1s2 no murmurs lungs clear abdomen soft no organomegaly no edema no cyanosis guevara + Assessment & Plan Assessment/Plan (1) OSVALDO (acute kidney injury): PLAN: CKD stage IV at baseline. Usual creatinine is between 2.5-2.7. Chronic history of GI issues which makes medication administration difficult. Has hypokalemia in general, requires potassium supplements. Has a low-grade proteinuria, last estimation about 600 mg, is on lisinopril for that. Came in with worsening diarrhea. Workup as per primary. CT abdomen without any hydronephrosis. Previous serologies negative. Most likely volume depletion mediated. Cr better Acidosis. Due to renal failure. Likely GI losses as well. better Hyperkalemia. better change fluids to NS Cr better no plans for HD C Diff positive
--- NOTE | 2025-05-06 18:50 | NURSING ---
report called [id number] patient and belongings taken to [id number]
--- NOTE | 2025-05-06 19:10 | NURSING ---
family was called notified of transfer to [id number]
[2025-05-07] VITALS (9 sets, daily range): BP systolic 131–145; BP diastolic 54–78; PULSE 63–88; RESP 16–18; TEMP 36.7–36.8; O2SAT 93–95; BMI 43.7
[2025-05-07] MEDS: Heparin Injection (Vial) 5,000 UNIT/ML VIAL 5000 UNIT SC ×3 (05:50→22:29)
[2025-05-07] MEDS: Vancomycin 125 MG/5 ML Susp PO.SYRINGE PO ×4 (05:50→23:19)
[2025-05-07 06:36] LABS: Hematocrit 25.7 % (37-47); Hemoglobin 8.3 g/dL (12.0-15.0); Immature Granulocytes Count 0.180 X10^3/uL (0.0-0.0); Mean Corp Hgb Conc 32.3 g/dL (32-36); Mean Corpuscular Volume 86.5 fL (81-99); Mean Platelet Vol. 9.3 fl (6.2-12.0); NRBC Flagged by Analyzer 0 % (0-5); Platelet Count 173 K/mm3 (150-450); RBC Distribution Width CV 16.5 % (11.6-14.6); RBC Distribution Width SD 52.0 fl (35.1-43.9); Red Blood Count 2.97 M/mm3 (4.2-5.4); White Blood Count 9.6 K/mm3 (4.4-11.0)
--- NOTE | 2025-05-07 07:11 | PN.HOSP_ITS ---
Reason for Visit Reason for Visit: Diagnoses Enterocolitis due to Clostridium difficile, not specified as recurrent (05/04/25) Acidosis, unspecified (05/04/25) Hyperkalemia (05/04/25) Acute kidney failure, unspecified (05/04/25) Urinary tract infection, site not specified (05/04/25) Diarrhea, unspecified (05/04/25) Unspecified abnormal findings in urine (05/04/25) Subjective Subjective Feeling well. Still with loose stools. Objective Data Objective Data Vital Signs: Vital Signs Temp Pulse Resp BP Pulse Ox O2 Del Method O2 Flow Rate 36.8 C 67 16 131/55 H 95 Room Air 2 05/07/25 05:45 05/07/25 05:49 05/07/25 05:45 05/07/25 05:45 05/07/25 05:45 05/07/25 05:45 05/06/25 17:00 Oxygen Flow Rate (L/min) 2 Oxygen Delivery Method Room Air Weight: 105.2 kg Body Mass Index (BMI) 43.7 Intake & Output: Intake and Output for Last 24 Hours 05/05/25 05/06/25 05/07/25 23:59 23:59 23:59 Intake Total 4103.58 / 4103.58 3885.00 / 3885.00 150 / 150 Output Total 1125 / 1125 1725 / 1725 250 / 250 Balance 2978.58 / 2978.58 2160.00 / 2160.00 -100 / -100 Lab / Micro Data 05/07/25 06:27 05/07/25 06:27 Labs: Laboratory Results - last 24 hr 05/06/25 08:16: POC Glucose 95 05/06/25 12:09: POC Glucose 152 H 05/06/25 16:26: POC Glucose 101 05/06/25 21:53: POC Glucose 127 H 05/07/25 05:42: POC Glucose 109 H 05/07/25 06:27: WBC 9.6, RBC 2.97 L, Hgb 8.3 L, Hct 25.7 L, MCV 86.5, MCH 27.9, MCHC 32.3, RDW Std Deviation 52.0 H, RDW Coeff of Juan [place] 16.5 H, Plt Count 173, MPV 9.3, Immature Gran % (Auto) 1.900 H, Neut % (Auto) 73.1 H, Lymph % (Auto) 7.4 L, Mc[place]osh % (Auto) 14.0 H, Eos % (Auto) 3.2, Baso % (Auto) 0.4, Absolute Neuts (auto) 7.0, Absolute Lymphs (auto) 0.71 L, Nucleated RBC % 0 Micro: Microbiology 05/04/25 14:30 Urine, Clean Catch Urine Culture - Preliminary Escherichia coli GNR lactose ice cream dipper 05/04/25 22:30 Stool Stool Lactoferrin - Final 05/04/25 22:30 Stool Enteric Bacteriology - Final 05/04/25 22:30 Stool C. difficile GDH Antigen & Toxins - Final Toxigenic C. difficile 05/04/25 22:30 Stool Clostridioides difficile (PCR) - Final 05/04/25 14:20 Stool Stool Occult Blood (ANDRES) - Final Occult Blood Positive Physical Exam Const alert and no apparent distress HEENT head/scalp atraumatic and moist oral mucous membranes Resp normal respiratory effort, no retractions, no use of accessory muscles and clear to auscultation bilaterally Cardio regular rate, regular rhythm, S1 normal heart sound and S2 normal heart sound GI normal to inspection, nondistended, normoactive bowel sounds, soft to palpation, non-tender and non-distended Extremity normal to inspection and full ROM Neuro Sensorium / Orientation: awake Psych affect normal Assessment & Plan Assessment/Plan (1) OSVALDO (acute kidney injury): PLAN: Baseline creatinine around 2.84 (from December 2024) Up to 9.26 on admission. Improved to 6.77 Suspect prerenal azotemia from diarrhea and ATN. (2) Hyperkalemia: PLAN: 2/2 OSVALDO improved after kayexalate (3) Abnormal urinalysis: PLAN: concentrated (sg 1.030). unclear if UTI. continue CTX for now. Follow up UCx showing 25-50k GNR. (4) Metabolic acidosis: PLAN: 2/2 OSVALDO. Resolved w sodium bicarbonate and improvement of OSVALDO. (5) C. difficile colitis: PLAN: POA. On Vancomycin continue FMS PLAN: Plan Chronic conditions: * DM2: uncontrolled. continue glargine and SSI. * HTN: hold lisinopril given OSVALDO * anemia: stable at her baseline. likely drop in her hemoglobin here was hemodilutional from the IVF. VTE prophylaxis: SQ heparin. Charges/Coding Visit Charges Inpatient E&M: 39856 Subs Hosp L2
[2025-05-07 07:33] LABS: Anion Gap 13 (5-15); BUN 79 mg/dL (4-19); BUN/Creat Ratio 11.7 RATIO (10-20); Calcium,Total 7.5 mg/dL (7.6-11.0); Carbon Dioxide 20.1 mmol/L (21.0-32.0); Chloride 107 mmol/L (98-108); Estimated Creatinine Clearance 7.65 ml/min (50-250); Glucose 106 mg/dL (70-99); Potassium 4.4 mmol/L (3.3-5.1)
[2025-05-07] MEDS: 0.9% Normal Saline (1000mL) 1,000 ML 100 ML IV ×3 (09:50→19:18)
[2025-05-07] MEDS: Budesonide 3 MG CAPSULE.EC 9 MG PO (09:51)
[2025-05-07] MEDS: Insulin Glargine-YFGN 100 UNIT/ML Pen 12 UNIT SC ×2 (09:51→22:37)
--- NOTE | 2025-05-07 11:12 | CASEMGMT ---
Discharge Planning A list of SNF providers including quality and resource use data and consistent with the patient's preferred geographic region, medical needs, and insurance network was created in [facility] Guide.? This list was provided to the RN ASIF Roberto, Discharge Planning Asst.
--- NOTE | 2025-05-07 11:33 | PCM.PN.REN ---
Subjective Subjective No new complaints today. Objective Data Objective Data Vital Signs: Vital Signs Temp Pulse Resp BP Pulse Ox O2 Del Method O2 Flow Rate 98.0 F 80 18 134/64 H 94 Room Air 2 05/07/25 10:59 05/07/25 10:59 05/07/25 10:59 05/07/25 10:59 05/07/25 10:59 05/07/25 10:59 05/06/25 17:00 Oxygen Flow Rate (L/min) 2 Oxygen Delivery Method Room Air Weight: 105.2 kg Body Mass Index (BMI) 43.7 Intake & Output: Intake and Output for Last 24 Hours 05/05/25 05/06/25 05/07/25 23:59 23:59 23:59 Intake Total 4103.58 / 4103.58 3885.00 / 3885.00 1150 / 1150 Output Total 1125 / 1125 1725 / 1725 250 / 250 Balance 2978.58 / 2978.58 2160.00 / 2160.00 900 / 900 Lab / Micro Data 05/07/25 06:27 05/07/25 06:27 Labs: Laboratory Results - last 24 hr 05/06/25 12:09: POC Glucose 152 H 05/06/25 16:26: POC Glucose 101 05/06/25 21:53: POC Glucose 127 H 05/07/25 05:42: POC Glucose 109 H 05/07/25 06:27: WBC 9.6, RBC 2.97 L, Hgb 8.3 L, Hct 25.7 L, MCV 86.5, MCH 27.9, MCHC 32.3, RDW Std Deviation 52.0 H, RDW Coeff of [place] 16.5 H, Plt Count 173, MPV 9.3, Immature Gran % (Auto) 1.900 H, Neut % (Auto) 73.1 H, Lymph % (Auto) 7.4 L, [place] % (Auto) 14.0 H, Eos % (Auto) 3.2, Baso % (Auto) 0.4, Absolute Neuts (auto) 7.0, Absolute Lymphs (auto) 0.71 L, Nucleated RBC % 0, Sodium 140, Potassium 4.4, Chloride 107, Carbon Dioxide 20.1 L, Anion Gap 13, BUN 79 H, Creatinine 6.77 H, Estim Creat Clear Calc 7.65 L*, Est GFR (MDRD) Non-Af 6 L, BUN/Creatinine Ratio 11.7, Glucose 106 H, Calcium 7.5 L Micro: Microbiology 05/04/25 14:30 Urine, Clean Catch Urine Culture - Final Escherichia coli Klebsiella pneumoniae sp pneum 05/04/25 22:30 Stool Stool Lactoferrin - Final 05/04/25 22:30 Stool Enteric Bacteriology - Final 05/04/25 22:30 Stool C. difficile GDH Antigen & Toxins - Final Toxigenic C. difficile 05/04/25 22:30 Stool Clostridioides difficile (PCR) - Final 05/04/25 14:20 Stool Stool Occult Blood (ANDRES) - Final Occult Blood Positive Physical Exam Narrative Alert awake oriented x 3 no obvious distress no pallor no icterus no JVD s1s2 no murmurs lungs clear abdomen soft no organomegaly no edema no cyanosis guevara + Assessment & Plan Assessment/Plan (1) OSVALDO (acute kidney injury): PLAN: CKD stage IV at baseline. Usual creatinine is between 2.5-2.7. Chronic history of GI issues which makes medication administration difficult. Has hypokalemia in general, requires potassium supplements. Has a low-grade proteinuria, last estimation about 600 mg, is on lisinopril for that. Came in with worsening diarrhea. CT abdomen without any hydronephrosis. Previous serologies negative. Most likely volume depletion mediated. Cr better Acidosis. Due to renal failure. Likely GI losses as well. better Hyperkalemia. better C. difficile positive. Stool consistency has improved significantly. She says most stools are formed. Creatinine is trending down but still more than 6. Continue IV fluids 1 more day. Patient is asking about going home. If creatinine continues to trend down, can potentially be discharged tomorrow. Guevara catheter can be removed from nephrology standpoint.
--- NOTE | 2025-05-07 14:16 | CASEMGMT ---
Addendum entered by Rohini Villanueva 05/07/25 16:17: [facility] reports that precert has been initiated. CM to follow. Addendum entered by Rohini Villanueva 05/07/25 16:15: [facility] is able to accept. Requested that precert be started. [facility] notified to disregard referral. Addendum entered by Rohini Villanueva 05/07/25 15:50: [facility] declined as [facility] do not have bed availability. DEBRA GLOD to the pt room at this time. Pt's 2nd and 3rd choices [facility] and [facility]. Referrals sent to the SNFs at this time via [facility]. Awaiting return responses. Original Note: See PT/OT notes. DEBRA GOLD to the pt room at this time to discuss DC planning. Pt notified that PT is recommending a short term rehabilitation stay at a SNF to help the pt return to her PLOF. Pt states that she is agreeable. This RN ASIF provided the pt with a list of SNF's printed by the [facility]. See note. At this time, the pt states that her only preference is [facility] as the pt had been to that SNF in the past. Referral sent to [facility] at this time via [facility]. Awaiting return response. CM to follow.
[2025-05-08] VITALS (8 sets, daily range): BP systolic 148–168; BP diastolic 56–70; PULSE 57–73; RESP 16–18; TEMP 36.5–36.8; O2SAT 92–96; BMI 44.1
[2025-05-08] MEDS: 0.9% Normal Saline (1000mL) 1,000 ML 100 ML IV ×2 (05:12→16:44)
[2025-05-08] MEDS: Heparin Injection (Vial) 5,000 UNIT/ML VIAL 5000 UNIT SC ×3 (05:13→23:07)
[2025-05-08] MEDS: Vancomycin 125 MG/5 ML Susp PO.SYRINGE PO ×4 (06:24→23:51)
--- NOTE | 2025-05-08 07:11 | PN.HOSP_ITS ---
Reason for Visit Reason for Visit: Diagnoses Enterocolitis due to Clostridium difficile, not specified as recurrent (05/04/25) Acidosis, unspecified (05/04/25) Hyperkalemia (05/04/25) Acute kidney failure, unspecified (05/04/25) Urinary tract infection, site not specified (05/04/25) Diarrhea, unspecified (05/04/25) Unspecified abnormal findings in urine (05/04/25) Subjective Subjective Feeling better. Objective Data Objective Data Vital Signs: Vital Signs Temp Pulse Resp BP Pulse Ox O2 Del Method O2 Flow Rate 36.5 C L 63 16 153/70 H 92 Room Air 2 05/08/25 04:11 05/08/25 05:12 05/08/25 04:11 05/08/25 04:11 05/08/25 04:11 05/08/25 04:11 05/06/25 17:00 Oxygen Flow Rate (L/min) 2 Oxygen Delivery Method Room Air Weight: 106.2 kg Body Mass Index (BMI) 44.1 Intake & Output: Intake and Output for Last 24 Hours 05/06/25 05/07/25 05/08/25 23:59 23:59 23:59 Intake Total 3885.00 / 3885.00 3058.66 / 3058.66 1290 / 1290 Output Total 1725 / 1725 1050 / 1050 450 / 450 Balance 2160.00 / 2160.00 / 840 / 840 Lab / Micro Data 05/07/25 06:27 05/08/25 08:21 Labs: Laboratory Results - last 24 hr 05/07/25 06:27: Sodium 140, Potassium 4.4, Chloride 107, Carbon Dioxide 20.1 L, Anion Gap 13, BUN 79 H, Creatinine 6.77 H, Estim Creat Clear Calc 7.65 L*, Est GFR (MDRD) Non-Af 6 L, BUN/Creatinine Ratio 11.7, Glucose 106 H, Calcium 7.5 L 05/07/25 12:02: POC Glucose 140 H 05/07/25 16:37: POC Glucose 142 H 05/07/25 22:36: POC Glucose 149 H 05/08/25 06:27: POC Glucose 95 Micro: Microbiology 05/04/25 14:30 Urine, Clean Catch Urine Culture - Final Escherichia coli Klebsiella pneumoniae sp pneum 05/04/25 22:30 Stool Stool Lactoferrin - Final 05/04/25 22:30 Stool Enteric Bacteriology - Final 05/04/25 22:30 Stool C. difficile GDH Antigen & Toxins - Final Toxigenic C. difficile 05/04/25 22:30 Stool Clostridioides difficile (PCR) - Final 05/04/25 14:20 Stool Stool Occult Blood (ANDRES) - Final Occult Blood Positive Physical Exam Const alert and no apparent distress HEENT head/scalp atraumatic and moist oral mucous membranes Resp normal respiratory effort, no retractions, no use of accessory muscles and clear to auscultation bilaterally Cardio regular rate, regular rhythm, S1 normal heart sound and S2 normal heart sound GI normal to inspection, nondistended, normoactive bowel sounds, soft to palpation, non-tender and non-distended Extremity normal to inspection, full ROM and no clubbing, cyanosis or edema Neuro oriented x3, CN's II-XII intact bilaterally, moves all extremities and no focal motor deficits Sensorium / Orientation: awake Assessment & Plan Assessment/Plan (1) OSVALDO (acute kidney injury): PLAN: Baseline creatinine around 2.84 (from December 2024) Up to 9.26 on admission. Improving, now down to 5.92. Suspect prerenal azotemia from diarrhea and ATN. SUKHWINDER guevara (2) Hyperkalemia: PLAN: 2/2 OSVALDO improved after kayexalate (3) Abnormal urinalysis: PLAN: concentrated (sg 1.030). unclear if UTI. continue CTX for now. Follow up UCx showing 25-50k GNR. (4) Metabolic acidosis: PLAN: 2/2 OSVALDO. Resolved w sodium bicarbonate and improvement of OSVALDO. (5) C. difficile colitis: PLAN: POA. improving On Vancomycin PLAN: Plan Chronic conditions: * DM2: uncontrolled. continue glargine and SSI. * HTN: hold lisinopril given OSVALDO * anemia: stable at her baseline. likely drop in her hemoglobin here was hemodilutional from the IVF. VTE prophylaxis: SQ heparin. Charges/Coding Visit Charges Inpatient E&M: 99271 Subs Hosp L2
[2025-05-08 08:59] LABS: Anion Gap 13 (5-15); BUN 78 mg/dL (4-19); BUN/Creat Ratio 13.1 RATIO (10-20); Calcium,Total 7.7 mg/dL (7.6-11.0); Carbon Dioxide 21.1 mmol/L (21.0-32.0); Chloride 107 mmol/L (98-108); Estimated Creatinine Clearance 8.80 ml/min (50-250); Glucose 93 mg/dL (70-99); Potassium 4.2 mmol/L (3.3-5.1)
[2025-05-08] MEDS: Budesonide 3 MG CAPSULE.EC 9 MG PO (09:57)
[2025-05-08] MEDS: Insulin Glargine-YFGN 100 UNIT/ML Pen 12 UNIT SC ×2 (10:12→23:10)
--- NOTE | 2025-05-08 10:41 | CASEMGMT ---
Addendum entered by Rohini Villanueva 05/08/25 13:07: Dr Georges now reports that the pt is medically ready for DC. [facility] notified via [facility] and the SNF states that precert is still pending. RN CM to pt room at this time and updated with the aforementioned information. Pt states understanding and denies further questions, concerns, or needs now. Original Note: Per rounds, hospitalist reports that the pt is not medically ready yet, but is getting there. Updates sent to the [facility] via [facility] and requested to notify [facility] when precert is obtained and how long it will be good for. CM to follow.
--- NOTE | 2025-05-08 15:33 | PCM.PN.REN ---
Subjective Subjective no new events Objective Data Objective Data Vital Signs: Vital Signs Temp Pulse Resp BP Pulse Ox O2 Del Method O2 Flow Rate 97.7 F L 61 18 161/70 H 95 Room Air 2 05/08/25 14:52 05/08/25 14:52 05/08/25 14:52 05/08/25 14:52 05/08/25 14:52 05/08/25 14:52 05/06/25 17:00 Oxygen Flow Rate (L/min) 2 Oxygen Delivery Method Room Air Weight: 106.2 kg Body Mass Index (BMI) 44.1 Intake & Output: Intake and Output for Last 24 Hours 05/06/25 05/07/25 05/08/25 23:59 23:59 23:59 Intake Total 3885.00 / 3885.00 3058.66 / 3058.66 1790 / 1790 Output Total 1725 / 1725 1050 / 1050 450 / 450 Balance 2160.00 / 2160.00 2007.66 / 1340 / 1340 Lab / Micro Data 05/07/25 06:27 05/08/25 08:21 Labs: Laboratory Results - last 24 hr 05/07/25 16:37: POC Glucose 142 H 05/07/25 22:36: POC Glucose 149 H 05/08/25 06:27: POC Glucose 95 05/08/25 08:21: Sodium 141, Potassium 4.2, Chloride 107, Carbon Dioxide 21.1, Anion Gap 13, BUN 78 H, Creatinine 5.92 H, Estim Creat Clear Calc 8.80 L*, Est GFR (MDRD) Non-Af 7 L, BUN/Creatinine Ratio 13.1, Glucose 93, Calcium 7.7 05/08/25 10:11: POC Glucose 113 H 05/08/25 12:02: POC Glucose 134 H Micro: Microbiology 05/04/25 14:30 Urine, Clean Catch Urine Culture - Final Escherichia coli Klebsiella pneumoniae sp pneum 05/04/25 22:30 Stool Stool Lactoferrin - Final 05/04/25 22:30 Stool Enteric Bacteriology - Final 05/04/25 22:30 Stool C. difficile GDH Antigen & Toxins - Final Toxigenic C. difficile 05/04/25 22:30 Stool Clostridioides difficile (PCR) - Final 05/04/25 14:20 Stool Stool Occult Blood (ANDRES) - Final Occult Blood Positive Physical Exam Narrative Alert awake oriented x 3 no obvious distress no pallor no icterus no JVD s1s2 no murmurs lungs clear abdomen soft no organomegaly no edema no cyanosis guevara + Assessment & Plan Assessment/Plan (1) OSVALDO (acute kidney injury): PLAN: CKD stage IV at baseline. Usual creatinine is between 2.5-2.7. Chronic history of GI issues which makes medication administration difficult. Has hypokalemia in general, requires potassium supplements. Has a low-grade proteinuria, last estimation about 600 mg, is on lisinopril for that. Came in with worsening diarrhea. CT abdomen without any hydronephrosis. Previous serologies negative. Most likely volume depletion mediated. Cr better Acidosis. Due to renal failure. Likely GI losses as well. better Hyperkalemia. better C. difficile positive. Stool consistency has improved significantly. guevara out cr continues to trend down dc plans as per primary
[2025-05-09] MEDS: 0.9% Normal Saline (1000mL) 1,000 ML 100 ML IV ×2 (01:45→11:50)
[2025-05-09 05:22] VITALS: BMI 44.1
[2025-05-09 05:59] VITALS: BP 156/63; PULSE 61; RESP 16; TEMP 36.4; O2SAT 93
[2025-05-09 06:02] VITALS: PULSE 61
[2025-05-09] MEDS: Heparin Injection (Vial) 5,000 UNIT/ML VIAL 5000 UNIT SC ×2 (06:02→13:25)
[2025-05-09] MEDS: Vancomycin 125 MG/5 ML Susp PO.SYRINGE PO ×2 (06:14→13:25)
--- NOTE | 2025-05-09 07:03 | PN.HOSP_ITS ---
Reason for Visit Reason for Visit: Diagnoses Enterocolitis due to Clostridium difficile, not specified as recurrent (05/04/25) Acidosis, unspecified (05/04/25) Hyperkalemia (05/04/25) Acute kidney failure, unspecified (05/04/25) Urinary tract infection, site not specified (05/04/25) Diarrhea, unspecified (05/04/25) Unspecified abnormal findings in urine (05/04/25) Subjective Subjective Feeling well. No new events. Objective Data Objective Data Vital Signs: Vital Signs Temp Pulse Resp BP Pulse Ox O2 Del Method O2 Flow Rate 36.4 C L 61 16 156/63 H 93 Room Air 2 05/09/25 05:59 05/09/25 06:02 05/09/25 05:59 05/09/25 05:59 05/09/25 05:59 05/09/25 05:59 05/06/25 17:00 Oxygen Flow Rate (L/min) 2 Oxygen Delivery Method Room Air Weight: 106.2 kg Body Mass Index (BMI) 44.1 Intake & Output: Intake and Output for Last 24 Hours 05/07/25 05/08/25 05/09/25 23:59 23:59 23:59 Intake Total 3058.66 / 3058.66 3140 / 3340 1251.67 / 1251.67 Output Total 1050 / 1050 450 / 450 Balance / 2690 / 2890 1251.67 / 1251.67 Lab / Micro Data 05/07/25 06:27 05/09/25 05:10 Labs: Laboratory Results - last 24 hr 05/08/25 08:21: Sodium 141, Potassium 4.2, Chloride 107, Carbon Dioxide 21.1, Anion Gap 13, BUN 78 H, Creatinine 5.92 H, Estim Creat Clear Calc 8.80 L*, Est GFR (MDRD) Non-Af 7 L, BUN/Creatinine Ratio 13.1, Glucose 93, Calcium 7.7 05/08/25 10:11: POC Glucose 113 H 05/08/25 12:02: POC Glucose 134 H 05/08/25 16:30: POC Glucose 129 H 05/08/25 23:09: POC Glucose 179 H Micro: Microbiology 05/04/25 14:30 Urine, Clean Catch Urine Culture - Final Escherichia coli Klebsiella pneumoniae sp pneum 05/04/25 22:30 Stool Stool Lactoferrin - Final 05/04/25 22:30 Stool Enteric Bacteriology - Final 05/04/25 22:30 Stool C. difficile GDH Antigen & Toxins - Final Toxigenic C. difficile 05/04/25 22:30 Stool Clostridioides difficile (PCR) - Final 05/04/25 14:20 Stool Stool Occult Blood (ANDRES) - Final Occult Blood Positive Physical Exam Const alert and no apparent distress HEENT head/scalp atraumatic and moist oral mucous membranes Resp normal respiratory effort, no retractions, no use of accessory muscles and clear to auscultation bilaterally Cardio regular rate, regular rhythm, S1 normal heart sound and S2 normal heart sound GI normal to inspection, nondistended, normoactive bowel sounds, soft to palpation, non-tender and non-distended Extremity normal to inspection and full ROM Neuro Sensorium / Orientation: awake and alert Assessment & Plan Assessment/Plan (1) OSVALDO (acute kidney injury): PLAN: Baseline creatinine around 2.84 (from December 2024) Up to 9.26 on admission. Improving, now down to 5.6. Suspect prerenal azotemia from diarrhea and ATN. DC'd ismael (2) Hyperkalemia: PLAN: 2/2 OSVALDO improved after kayexalate (3) Abnormal urinalysis: PLAN: .Actual UTI as the CFU's are low and did appear to be concentrated given the sg 1.030. unclear if UTI. continue CTX for now. Follow up UCx showing 25- 50k E. coli as well as only 11-25,000 Klebsiella. I do not feel the Klebsiella is pathogenic am not truly convinced that the E. coli is a factor as well. With her having C. difficile I am going to discontinue antibiotics. (4) Metabolic acidosis: PLAN: 2/2 OSVALDO. Resolved w sodium bicarbonate and improvement of OSVALDO. (5) C. difficile colitis: PLAN: POA. improving On Vancomycin continue for 10 days PLAN: Plan Chronic conditions: * DM2: uncontrolled. continue glargine and SSI. * HTN: hold lisinopril given OSVALDO * anemia: stable at her baseline. likely drop in her hemoglobin here was hemodilutional from the IVF. VTE prophylaxis: SQ heparin. DC to SNF. To the [facility].
[2025-05-09 09:12] VITALS: BP 183/73; PULSE 66; RESP 13; TEMP 36.5; O2SAT 96
[2025-05-09 09:19] LABS: Anion Gap 13 (5-15); BUN 83 mg/dL (4-19); BUN/Creat Ratio 14.8 RATIO (10-20); Calcium,Total 7.4 mg/dL (7.6-11.0); Carbon Dioxide 18.0 mmol/L (21.0-32.0); Chloride 109 mmol/L (98-108); Estimated Creatinine Clearance 9.30 ml/min (50-250); Glucose 107 mg/dL (70-99); Potassium 4.1 mmol/L (3.3-5.1)
[2025-05-09] MEDS: Budesonide 3 MG CAPSULE.EC 9 MG PO (09:29)
[2025-05-09] MEDS: Insulin Glargine-YFGN 100 UNIT/ML Pen 12 UNIT SC (09:31)
--- NOTE | 2025-05-09 09:39 | CASEMGMT ---
Jamee states that auth is still pending. CM to continue to follow.
[2025-05-09 11:00] VITALS: BP 152/62
--- NOTE | 2025-05-09 11:59 | PN.RENAL_ITS ---
Subjective Subjective no new complaints Objective Data Objective Data Vital Signs: Vital Signs Temp Pulse Resp BP Pulse Ox O2 Del Method O2 Flow Rate 97.7 F L 66 13 152/62 H 96 Room Air 2 05/09/25 09:12 05/09/25 09:12 05/09/25 09:12 05/09/25 11:00 05/09/25 09:12 05/09/25 11:39 05/06/25 17:00 Oxygen Flow Rate (L/min) 2 Oxygen Delivery Method Room Air Weight: 106.2 kg Body Mass Index (BMI) 44.1 Intake & Output: Intake and Output for Last 24 Hours 05/07/25 05/08/25 05/09/25 23:59 23:59 23:59 Intake Total 3058.66 / 3058.66 3140 / 3340 2551.67 / 2551.67 Output Total 1050 / 1050 450 / 450 Balance / 2690 / 2890 2551.67 / 2551.67 Lab / Micro Data 05/07/25 06:27 05/09/25 05:10 Labs: Laboratory Results - last 24 hr 05/08/25 12:02: POC Glucose 134 H 05/08/25 16:30: POC Glucose 129 H 05/08/25 23:09: POC Glucose 179 H 05/09/25 05:10: Sodium 139, Potassium 4.1, Chloride 109 H, Carbon Dioxide 18.0 L , Anion Gap 13, BUN 83 H, Creatinine 5.60 H, Estim Creat Clear Calc 9.30 L*, Est GFR (MDRD) Non-Af 7 L, BUN/Creatinine Ratio 14.8, Glucose 107 H, Calcium 7.4 L 05/09/25 06:16: POC Glucose 104 05/09/25 11:29: POC Glucose 113 H Micro: Microbiology 05/04/25 14:30 Urine, Clean Catch Urine Culture - Final Escherichia coli Klebsiella pneumoniae sp pneum 05/04/25 22:30 Stool Stool Lactoferrin - Final 05/04/25 22:30 Stool Enteric Bacteriology - Final 05/04/25 22:30 Stool C. difficile GDH Antigen & Toxins - Final Toxigenic C. difficile 05/04/25 22:30 Stool Clostridioides difficile (PCR) - Final 05/04/25 14:20 Stool Stool Occult Blood (ANDRES) - Final Occult Blood Positive Physical Exam Narrative Alert awake oriented x 3 no obvious distress no pallor no icterus no JVD s1s2 no murmurs lungs clear abdomen soft no organomegaly no edema Assessment & Plan Assessment/Plan (1) OSVALDO (acute kidney injury): PLAN: CKD stage IV at baseline. Usual creatinine is between 2.5-2.7. Chronic history of GI issues which makes medication administration difficult. Has hypokalemia in general, requires potassium supplements. Has a low-grade proteinuria, last estimation about 600 mg, is on lisinopril for that. Came in with worsening diarrhea. CT abdomen without any hydronephrosis. Previous serologies negative. Most likely volume depletion mediated. Cr better Acidosis. Due to renal failure. Likely GI losses as well. better Hyperkalemia. better C. difficile positive. Stool consistency has improved significantly. guevara out Creatinine continues to trend down. Came in with fairly high creatinine hence taking some time. Overall doing well. She says she plans to go home. At the time of discharge, hold lisinopril, hold potassium chloride. Will arrange follow-up after discharge.
--- NOTE | 2025-05-09 13:01 | TREXTCAR_ITS ---
Diet Diet Order/Speech Therapy: INPATIENT Hospital Diet / Speech Therapy Order(s) 05/06/25 09:39 Diet: Renal - Protein Restricted Dietary Modifications:: Consistent Carbohydrate Type of Dietary Supplement:: Dillan Diet Comments: Dillan with breakfast and dinner Routine Orders/Code Status Routine Lab Work: BMP (Mondays) Code Status: Full Code DC O2, CPAP, BIPAP needs Home O2 Discharge instructions: No Wound(s) left leg: Wound Type: Stasis Ulcer Therapies Physical Therapy: Eval and Treat Occupational Therapy: Eval and Treat Problem/Diagnosis (1) OSVALDO (acute kidney injury): Status: Acute Code(s): N17.9 - Acute kidney failure, unspecified Plan: Baseline creatinine around 2.84 (from December 2024) Up to 9.26 on admission. Improving, now down to 5.6. Suspect prerenal azotemia from diarrhea and ATN. DC'd ismael (2) Hyperkalemia: Status: Acute Code(s): E87.5 - Hyperkalemia Plan: 2/2 OSVALDO improved after kayexalate (3) Abnormal urinalysis: Status: Acute Code(s): R82.90 - Unspecified abnormal findings in urine Plan: .Actual UTI as the CFU's are low and did appear to be concentrated given the sg 1.030. unclear if UTI. continue CTX for now. Follow up UCx showing 25-50k E. coli as well as only 11-25,000 Klebsiella. I do not feel the Klebsiella is pathogenic am not truly convinced that the E. coli is a factor as well. With her having C. difficile I am going to discontinue antibiotics. (4) Metabolic acidosis: Status: Resolved Code(s): E87.20 - Acidosis, unspecified Plan: 2/2 OSVALDO. Resolved w sodium bicarbonate and improvement of OSVALDO. (5) C. difficile colitis: Status: Acute Code(s): A04.72 - Enterocolitis due to Clostridium difficile, not specified as recurrent Plan: POA. improving On Vancomycin continue for 10 days Plan Chronic conditions: * DM2: uncontrolled. continue glargine and SSI. * HTN: hold lisinopril given OSVALDO * anemia: stable at her baseline. likely drop in her hemoglobin here was hemodilutional from the IVF. VTE prophylaxis: SQ heparin. DC to SNF. [facility] Allergies/Procedures Done in Hospital Allergies chlorhexidine Allergy (Verified 05/04/25 13:41) Unknown Iodinated Contrast Media (CONTRASTS) Allergy (Verified 05/04/25 13:41) Other iodine Allergy (Verified 05/04/25 13:41) Unknown latex Allergy (Verified 05/04/25 13:41) Rash Procedures: None Type of Care/Length of Stay Estimated LOS: Convalescent Care Less Than 30 days Type of Care Needed: Skilled Rehab Potential: Good Prognosis: Good Additional Orders/Day of Discharge Day of Discharge: 05/09/25 Dietary and Speech Recommendations Dietitian Recommendations/Changes: Continue Renal -Low Protein, Consistent CHO diet to manage medical conditions. Continue Dillan bid w/meals to help w/wound healing. Discharge Plan Admission Admit Date/Time: 05/04/25 19:06 Primary Reason for Your Visit: OSVALDO. C diff colitis. Attending Provider: Junior Georges Primary Care Provider: Elena Mims Consulting Providers: Marjorie Gallardo; Shari Prieto Discharge Orders/Prescriptions Prescriptions: New acetaminophen 325 mg Tablet 650 mg PO Q6H PRN PRN (Reason: Pain 1-10 Or Fever >100.7) Qty: 0 0RF vancomycin 125 mg capsule 125 mg PO Q6H 10 Days Qty: 40 0RF Continued carvedilol 12.5 mg tablet 6.25 mg PO BIDCM Januvia 50 mg tablet 50 mg PO QDAY budesonide 3 mg capsule,delayed,extend.release 3 mg PO .COMPLEX Qty: 90 0RF Rx Instructions: 3 mg orally take 3 capsules once daily every morning; folic acid 1 MG tablet 1 mg PO DAILY@0800 calcium carbonate-vitamin D3 [Caltrate with Vitamin D3] 1 TAB tablet 1 tab PO DAILY citalopram 20 mg tablet 20 mg PO QHS ferrous sulfate [FeroSul] 325 mg (65 mg iron) tablet 325 mg PO DAILY amlodipine 5 mg Tablet 5 mg PO DAILY 30 Days Qty: 30 0RF alendronate 70 mg tablet 70 mg PO QWEEK hydralazine 25 mg tablet 25 mg PO TID insulin glargine [Lantus Solostar U-100 Insulin] 100 unit/mL (3 mL) insulin pen 12 unit subcut BID aspirin 81 mg capsule 81 mg PO DAILY pantoprazole 40 mg Tablet,Delayed Release (Dr/Ec) 40 mg PO DAILY pentoxifylline 400 mg tablet extended release 400 mg PO DAILY vitamin E 268 mg (400 unit) capsule 268 mg PO DAILY Discontinued furosemide [Lasix] 40 mg tablet 40 mg PO .4 days a week potassium chloride 20 mEq Tablet,Er Particles/Crystals 20 meq PO DAILYCM 30 Days Qty: 30 0RF metoprolol succinate 50 mg tablet extended release 24 hr 50 mg PO DAILY lisinopril 40 mg tablet 40 mg PO DAILY Referrals / Follow Up: Elena Mims DO [Primary Care Provider] - Within 2 Weeks Disposition Disposition (needs filled in before D/C Order can be placed): [facility]
--- NOTE | 2025-05-09 13:01 | CASEMGMT ---
At this time, [facility] states that precert has been obtained. Dr Georges notified.
--- NOTE | 2025-05-09 13:02 | CASEMGMT ---
Discharge Planning [facility] has obtained auth to admit. Kortney Roberto DC Planning Asst.
--- NOTE | 2025-05-09 13:07 | DS.PCM_ITS ---
Providers Date of Admission: 05/04/25 Primary Care Physician: Dr. Elena Mims, Consultations 05/04/25 20:19 Consult: Nephrology Routine Consulting Provider: Shari Prieto Reason for Consult: Severe Hyperkalemia, improved but still renal failure EMERGENT Consult: No MD Notified: Yes Date Notified: 05/04/25 Time Notified: 20:04 Method of Notification: Verbal Reason For Visit: ACUTE RENAL FAILURE Diagnosis Discharge Diagnosis (1) OSVALDO (acute kidney injury): Status: Acute Code(s): N17.9 - Acute kidney failure, unspecified Plan: Baseline creatinine around 2.84 (from December 2024) Up to 9.26 on admission. Improving, now down to 5.6. Suspect prerenal azotemia from diarrhea and ATN. SUKHWINDER'smita guevara (2) Hyperkalemia: Status: Acute Code(s): E87.5 - Hyperkalemia Plan: 2/2 OSVALDO improved after kayexalate (3) Abnormal urinalysis: Status: Acute Code(s): R82.90 - Unspecified abnormal findings in urine Plan: .Actual UTI as the CFU's are low and did appear to be concentrated given the sg 1.030. unclear if UTI. continue CTX for now. Follow up UCx showing 25-50k E. coli as well as only 11-25,000 Klebsiella. I do not feel the Klebsiella is pathogenic am not truly convinced that the E. coli is a factor as well. With her having C. difficile I am going to discontinue antibiotics. (4) Metabolic acidosis: Status: Resolved Code(s): E87.20 - Acidosis, unspecified Plan: 2/2 OSVALDO. Resolved w sodium bicarbonate and improvement of OSVALDO. (5) C. difficile colitis: Status: Acute Code(s): A04.72 - Enterocolitis due to Clostridium difficile, not specified as recurrent Plan: POA. improving On Vancomycin continue for 10 days Plan Chronic conditions: * DM2: uncontrolled. continue glargine and SSI. * HTN: hold lisinopril given OSVALDO * anemia: stable at her baseline. likely drop in her hemoglobin here was hemodilutional from the IVF. VTE prophylaxis: SQ heparin. DC to SNF. [facility]. Medications at Discharge Home Medications folic acid 1 mg tablet 1 mg PO DAILY@0800 SUPPLEMENT 01/21/17 calcium 600 mg (as carbonate)-vitamin D3 20 mcg (800 unit) tablet (Caltrate with Vitamin D3) 1 tab PO DAILY SUPPLEMENT 03/05/19 citalopram 20 mg tablet 20 mg PO QHS mental health 01/22/22 pentoxifylline 400 mg tablet,extended release 400 mg PO DAILY PAD 02/15/24 vitamin E 268 mg (400 unit) capsule 268 mg PO DAILY Supplement 02/15/24 ferrous sulfate 325 mg (65 mg iron) tablet (FeroSul) 325 mg PO DAILY Supplement 06/05/24 amlodipine 5 mg tablet 5 mg PO DAILY 30 days #30 tabs 01/11/25 budesonide 3 mg capsule,delayed,extended release 3 mg PO .COMPLEX Stomach Lining #90 ea 04/02/25 carvedilol 12.5 mg tablet 6.25 mg PO BIDCM 04/02/25 sitagliptin phosphate 50 mg tablet (Januvia) 50 mg PO QDAY 04/02/25 alendronate 70 mg tablet 70 mg PO QWEEK 05/04/25 aspirin 81 mg capsule 81 mg PO DAILY 05/04/25 hydralazine 25 mg tablet 25 mg PO TID 05/04/25 insulin glargine 100 unit/mL (3 mL) subcutaneous pen (Lantus Solostar U-100 Insulin) 12 unit subcut BID 05/04/25 pantoprazole 40 mg tablet,delayed release 40 mg PO DAILY 05/04/25 acetaminophen 325 mg tablet 650 mg (2 x 325 mg) PO Q6H PRN PRN Pain 1-10 Or Fever >100.7 #0 tabs 05/09/25 vancomycin 125 mg capsule 125 mg PO Q6H 10 days #40 caps 05/09/25 Hospital Course Operations None Procedures None Summary of Care Provided Minutes Spent on Discharge: 32 Hospital Course: Patient presents with diarrhea and weakness. Patient's labs were abnormal with a creatinine of 9.26. Additionally potassium was 7.3. Patient did receive Kayexalate and potassium improved. Patient received IV fluids and was seen by nephrology. Patient's creatinine creatinine improved with IV fluids. Today is down to 5.6. For the patient's diarrhea as she was positive for C. difficile colitis. This was present on admission. Patient was started on vancomycin and diarrhea has improved. Patient did have fecal management system temporarily. Patient will be discharged to the [facility] in stable condition. In the meantime given her OSVALDO she will continue to hold her furosemide and lisinopril. Weight / BMI Weight Weight: 106.2 kg Body Mass Index (BMI) 44.1 ABG / Lab / Microbiology Data 05/07/25 06:27 05/09/25 05:10 Laboratory: Laboratory Results - last 24 hr 05/08/25 16:30: POC Glucose 129 H 05/08/25 23:09: POC Glucose 179 H 05/09/25 05:10: Sodium 139, Potassium 4.1, Chloride 109 H, Carbon Dioxide 18.0 L , Anion Gap 13, BUN 83 H, Creatinine 5.60 H, Estim Creat Clear Calc 9.30 L*, Est GFR (MDRD) Non-Af 7 L, BUN/Creatinine Ratio 14.8, Glucose 107 H, Calcium 7.4 L 05/09/25 06:16: POC Glucose 104 05/09/25 11:29: POC Glucose 113 H Microbiology: Microbiology 05/04/25 14:30 Urine, Clean Catch Urine Culture - Final Escherichia coli Klebsiella pneumoniae sp pneum 05/04/25 22:30 Stool Stool Lactoferrin - Final 05/04/25 22:30 Stool Enteric Bacteriology - Final 05/04/25 22:30 Stool C. difficile GDH Antigen & Toxins - Final Toxigenic C. difficile 05/04/25 22:30 Stool Clostridioides difficile (PCR) - Final 05/04/25 14:20 Stool Stool Occult Blood (ANDRES) - Final Occult Blood Positive D/C Instructions DC O2, CPAP, BIPAP Needs Home O2 Discharge instructions: No Meaningful Use Info Meaningful Use Meaningful Use Diagnoses (Choose all that apply): None applicable Discharge Plan Admission Admit Date/Time: 05/04/25 19:06 Primary Reason for Your Visit: OSVALDO. C diff colitis. Attending Provider: Junior Georges Primary Care Provider: Elena Mims Consulting Providers: Marjorie Gallardo; Shari Prieto Discharge Orders/Prescriptions Prescriptions: New acetaminophen 325 mg Tablet 650 mg PO Q6H PRN PRN (Reason: Pain 1-10 Or Fever >100.7) Qty: 0 0RF vancomycin 125 mg capsule 125 mg PO Q6H 10 Days Qty: 40 0RF Continued carvedilol 12.5 mg tablet 6.25 mg PO BIDCM Januvia 50 mg tablet 50 mg PO QDAY budesonide 3 mg capsule,delayed,extend.release 3 mg PO .COMPLEX Qty: 90 0RF Rx Instructions: 3 mg orally take 3 capsules once daily every morning; folic acid 1 MG tablet 1 mg PO DAILY@0800 calcium carbonate-vitamin D3 [Caltrate with Vitamin D3] 1 TAB tablet 1 tab PO DAILY citalopram 20 mg tablet 20 mg PO QHS ferrous sulfate [FeroSul] 325 mg (65 mg iron) tablet 325 mg PO DAILY amlodipine 5 mg Tablet 5 mg PO DAILY 30 Days Qty: 30 0RF alendronate 70 mg tablet 70 mg PO QWEEK hydralazine 25 mg tablet 25 mg PO TID insulin glargine [Lantus Solostar U-100 Insulin] 100 unit/mL (3 mL) insulin pen 12 unit subcut BID aspirin 81 mg capsule 81 mg PO DAILY pantoprazole 40 mg Tablet,Delayed Release (Dr/Ec) 40 mg PO DAILY pentoxifylline 400 mg tablet extended release 400 mg PO DAILY vitamin E 268 mg (400 unit) capsule 268 mg PO DAILY Discontinued furosemide [Lasix] 40 mg tablet 40 mg PO .4 days a week potassium chloride 20 mEq Tablet,Er Particles/Crystals 20 meq PO DAILYCM 30 Days Qty: 30 0RF metoprolol succinate 50 mg tablet extended release 24 hr 50 mg PO DAILY lisinopril 40 mg tablet 40 mg PO DAILY Referrals / Follow Up: Elena Mims DO [Primary Care Provider] - Within 2 Weeks Disposition Disposition (needs filled in before D/C Order can be placed): Detention Facility Charges/Coding Visit Charges Inpatient E&M: 72690 Disch Hosp >30min
[2025-05-09 13:24] VITALS: PULSE 83
--- NOTE | 2025-05-09 14:06 | CASEMGMT ---
[address] [facility] notified. Transfer Summary and signed med list sent to [facility] via [employer]. Original documents placed in packet for the SNF. Copies placed in chart. Transport has been established through [facility] [employer] [facility] for 1430. 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 No further needs identified.
[2025-05-09 14:30] VITALS: BP 156/70; PULSE 71; RESP 16; TEMP 36.6; O2SAT 98
--- NOTE | 2025-05-09 14:44 | NURSING ---
report called and given to [facility] at [facility]
== END 2025-05-09 14:50 | disposition skilled nursing facility (03) | DRG 683 ==
LOC: ED 18:03 → ICU 19:11 → MS3 05-06 18:26
PROVIDERS: Admitting Provider Internal Medicine; Emergency Provider Surgery; PCP Internal Medicine
DX: N17.0 Acute kidney failure with tubular necrosis (principal); A04.72 Enterocolitis due to Clostridium difficile, not specified as recurrent; E87.20 Acidosis, unspecified; Z68.41 Body mass index [BMI] 40.0-44.9, adult; E11.22 Type 2 diabetes mellitus with diabetic chronic kidney disease; N18.4 Chronic kidney disease, stage 4 (severe); I12.9 Hypertensive chronic kidney disease with stage 1 through stage 4 chronic kidney disease, or unspecified chronic kidney disease; F32.A Depression, unspecified; E78.5 Hyperlipidemia, unspecified; E87.5 Hyperkalemia; Z79.4 Long term (current) use of insulin; E11.65 Type 2 diabetes mellitus with hyperglycemia; R19.5 Other fecal abnormalities; I95.9 Hypotension, unspecified; F41.9 Anxiety disorder, unspecified; E66.813 Obesity, class 3; Z79.82 Long term (current) use of aspirin; Z79.899 Other long term (current) drug therapy; R82.90 Unspecified abnormal findings in urine
CPT/HCPCS: 36415; 74176; 80048; 81001; 82274; 82436; 82550; 82570; 82962; 83605; 83630; 83735; 83935; 84132; 84133; 84156; 84300; 84540; 85025; 87040; 87077; 87086; 87088; 87177; 87186; 87209; 87493; 87506; 93005; 94640; 94762; 97112; 97116; 97162; 97166; 97530; 97535; 97802; 99285; P9612; A4216; J0612; J0696; J2405

== ENCOUNTER → 2025-06-11 | Outpatient (CLI) | payer MEDICARE, SELFPAY ==
--- NOTE | 2025-06-11 07:38 | CDU_ITS ---
Reason For Study Reason For Study: Blurred vision Rt. Velocities/BP Lt. Velocities/BP Prox CCA 46.6/6 cm/sec. Prox CCA 47.2/8 cm/sec. Mid CCA 33/7.3 cm/sec. Mid CCA 33.7/5.9 cm/sec. Dist CCA 30.1/8.8 cm/sec. Dist CCA 37.9/8.8 cm/sec. Prox ICA 35.8/11.6 cm/sec. Prox ICA 43.7/11.6 cm/sec. Mid ICA 58.6/17.3 cm/sec. Mid ICA 58.9/17.3 cm/sec. Dist ICA 53.6/12.3 cm/sec. Dist ICA 63.9/18.6 cm/sec. Rt. ICA/CCA = 1.78. Lt. ICA/CCA = 1.90. Prox ECA 49.3/4.5 cm/sec. Prox ECA 70.7/13.5 cm/sec. Rt. Vert. 42.2/10.2 cm/sec. Lt. Vert. 46.6/13.5 cm/sec. Right Extracranial There is intimal thickening but no significant atherosclerotic plaque noted in the right common carotid artery. There is intimal thickening but no significant atherosclerotic plaque noted in the right internal carotid artery. There is intimal thickening but no significant atherosclerotic plaque noted in the right external carotid artery. Antegrade flow is noted in the right vertebral artery. Left Extracranial There is intimal thickening but no significant atherosclerotic plaque noted in the left common carotid artery. There is intimal thickening but no significant atherosclerotic plaque noted in the left internal carotid artery. There is intimal thickening but no significant atherosclerotic plaque noted in the left external carotid artery. Antegrade flow is noted in the left vertebral artery. Procedure Carotid Duplex 32918. This is a Carotid Duplex examination using B-mode, color flow and specral Doppler. Exam performed in department. VL/Carotid Duplex Ultrasound Interpretation Summary Normal right extracranial internal carotid. Normal left extracranial internal carotid. Patent and antegrade vertebrals bilaterally. Ordering Physician: Elena Mims Referring Physician: Elena Mims Performed By: Isha Anna RVT
--- NOTE | 2025-06-11 07:38 | ECHOCS_ITS ---
Reason For Study Reason For Study: SUDDEN VISUAL LOSS, LEFT EYE Procedure This was a 2D Doppler, Color Flow transthoracic echocardiogram. The study was technically difficult. Due to body habitus. Contrast injection was performed. Exam performed in department. Left Ventricle Normal LV size. Left ventricular systolic function is normal. The left ventricular ejection fraction is 65 %. No regional wall motion abnormalities noted. Right Ventricle Normal RV size. Normal systolic function. Atria Normal left atrium. Normal right atrium. Mitral Valve There is moderate mitral annular calcification. Tricuspid Valve Normal tricuspid valve. Moderate (2+) tricuspid valve insufficiency. Pulmonary artery systolic pressure is 56 mmHg. Aortic Valve Trisinus/trileaflet aortic valve. Pulmonic Valve The pulmonic valve is not well visualized. Great Vessels Normal aortic root. The pulmonary artery is normal size. Inferior vena cava collapse with respiration. Pericardium/Pleural No pericardial effusion. Medication 22 gauge I.V. with prn adaptor inserted into left arm. Diluted definity 1.5ml given slow IV push to enhance endocardial definition. MMode/2D Measurements & Calculations LVIDd: 5.4 cm IVSd: 1.0 cm Ao root diam: 3.8 cm LVIDs: 3.6 cm LVPWd: 1.1 cm RVDd: 3.4 cm FS: 33.7 % LAV(MOD-bp): 95.0 ml LVAd ap4: 34.6 cm2 LVAd ap2: 31.0 cm2 LAV(MOD-bp) Indexed: 47.8 ml/m2 LVLd ap4: 8.0 cm LVLd ap2: 7.9 cm LAV(MOD-sp2): 94.8 ml EDV(MOD-sp4): 122.9 ml EDV(MOD-sp2): 98.2 ml LAV(MOD-sp4): 94.4 ml EDV(sp4-el): 127.2 ml EDV(sp2-el): 102.6 ml LVAs ap4: 15.8 cm2 LVAs ap2: 15.1 cm2 LVLs ap4: 5.5 cm LVLs ap2: 6.2 cm ESV(MOD-sp4): 37.3 ml ESV(MOD-sp2): 31.0 ml ESV(sp4-el): 38.4 ml ESV(sp2-el): 31.2 ml EF(MOD-sp4): 69.6 % EF(MOD-sp2): 68.5 % EF(sp4-el): 69.8 % SV(MOD-sp4): 85.6 ml SV(MOD-sp2): 67.2 ml SV(sp4-el): 88.8 ml SI(MOD-sp4): 43.1 ml/m2 SI(MOD-sp2): 33.8 ml/m2 LA A4 area: 26.0 cm2 LA dimension(2D): 3.9 cm RA A4 area: 19.1 cm2 TAPSE: 2.2 cm Time Measurements MV dec time: 0.15 sec Doppler Measurements & Calculations MV E max elian: 87.1 cm/sec Lat Peak E' Elian: 10.5 cm/sec Med Peak E' Elian: 9.0 cm/sec MV A max elian: 96.7 cm/sec E/E' lat: 8.3 E/E' med: 9.6 MV E/A: 0.90 MV V2 max: 112.7 cm/sec MV P1/2t max elian: 91.3 cm/sec Ao V2 max: 177.1 cm/sec MV max P.1 mmHg MV P1/2t: 45.1 msec Ao max P.6 mmHg MV V2 mean: 52.0 cm/sec MV dec slope: 593.1 cm/sec2 Ao V2 mean: 129.8 cm/sec MV mean P.3 mmHg MVA(P1/2t): 4.9 cm2 Ao mean P.2 mmHg MV V2 VTI: 29.4 cm Ao V2 VTI: 45.9 cm AV (velocity ratio): 0.59 LV V1 max: 103.2 cm/sec PA V2 max: 113.4 cm/sec TR max elian: 362.3 cm/sec LV V1 max P.3 mmHg PA V2 mean: 69.2 cm/sec TR max P.5 mmHg LV V1 mean P.4 mmHg LV V1 mean: 73.2 cm/sec LV V1 VTI: 27.0 cm ECHO/Echo Complete W/ Contrast Interpretation Summary Normal LV size. Left ventricular systolic function is normal. The left ventricular ejection fraction is 65 %. Moderate (2+) tricuspid valve insufficiency. Pulmonary artery systolic pressure is 56 mmHg. Contrast injection was performed. Ordering Physician: Elena Mims Referring Physician: Elena Mims Performed By: Reema Reyes, QIAN, RVT
== END | disposition home or self-care (01) ==
LOC: CVS 07:37
PROVIDERS: PCP Internal Medicine; Referring Provider Internal Medicine; Visit Provider Internal Medicine
DX: R06.02 Shortness of breath (principal); H53.132 Sudden visual loss, left eye
CPT/HCPCS: 93306; 93880; Q9957; A4216; C8929

== ENCOUNTER → 2025-07-21 | Outpatient (CLI) | payer MEDICARE, SELFPAY ==
[2025-07-21 13:07] LABS: Anion Gap 12 (5-15); BUN 33 mg/dL (4-19); BUN/Creat Ratio 12.5 RATIO (10-20); Calcium,Total 8.8 mg/dL (7.6-11.0); Carbon Dioxide 17.7 mmol/L (21.0-32.0); Chloride 111 mmol/L (98-108); Glucose 78 mg/dL (70-99); Potassium 4.3 mmol/L (3.3-5.1)
[2025-07-21 18:44] LABS: Creatinine, Urine (random) 100.00 mg/dL (28.00-217.00); Protein, Urine (Random) 56.9 mg/dL (0.0-12.0); Protein:Creat Ratio 569 mg/g CRE (0-200)
== END | disposition home or self-care (01) ==
LOC: MTLAB 09:15
PROVIDERS: PCP Internal Medicine; Referring Provider Internal Medicine Nephrology; Visit Provider Internal Medicine Nephrology
DX: N18.4 Chronic kidney disease, stage 4 (severe) (principal)
CPT/HCPCS: 36415; 80048; 82570; 84156

== ENCOUNTER 2025-09-18 10:14 | Inpatient (IN) | payer MEDICARE, SELFPAY ==
[2025-09-18] VITALS (13 sets, daily range): BP systolic 144–164; BP diastolic 44–97; PULSE 74–89; RESP 18–23; TEMP 36.6–37.2; O2SAT 94–100; BMI 43.3; BMI 41.7
--- NOTE | 2025-09-18 10:23 | CT_ITS ---
PROCEDURE: ABDOMEN/PELVIS WITHOUT CONT 09/18/2025 REASON FOR EXAM: DIARRHEA History of chronic renal disease. TECHNIQUE: Procedure Code: [id number] Modality: CT Procedure: ABDOMEN/PELVIS WITHOUT CONT Noncontrast technique limits evaluation of the abdominal and pelvic viscera. Coronal and Sagittal reconstruction series were provided. One or more dose reduction techniques were used (e.g., Automated exposure control, adjustment of the mA and/or kV according to patient size, use of iterative reconstruction technique). RADIATION DOSE SUMMARY: CTDlvol: 27.13 mGy DLP: 1389.58 mGycm COMPARISON: May 04, 2025. FINDINGS: Lung bases: The lung bases are clear. Coronary artery calcification. Liver: Normal size. No obvious mass. Gallbladder: The gallbladder is contracted. Spleen: Normal size. Pancreas: Diffuse fatty atrophy. Adrenals: Unremarkable Kidneys: 5 mm calculus in the right renal pelvis causing a mild degree of right hydronephrosis. Stable small hyperdense cyst in the lateral inferior pole of the right kidney. Bladder: Unremarkable Reproductive Organs: Enlarged fibroid uterus. Bowel: Colonic diverticulosis without diverticulitis. Appendix: The appendix is not identified. There is no inflammatory process identified in the right lower quadrant to suggest appendicitis. Lymph nodes: Small retroperitoneal lymph nodes. Vasculature: Mild diffuse atherosclerotic calcifications are noted. Peritoneum / Retroperitoneum: Small retroperitoneal lymph nodes. Small umbilical hernia containing fat. This is unchanged. Bones: Degenerative changes of the spine. Prior bilateral total hip replacements. CT/Abdomen/Pelvis without Cont IMPRESSION: The gallbladder is contracted. 5 mm calculus in the right renal pelvis causing mild degree of right hydronephr osis. Small hyperdense cyst in the lateral inferior pole of the right kidney. Reading Location: [id number]
--- NOTE | 2025-09-18 10:33 | EX.ED.DYSGE1 ---
HPI History of Present Illness Chief Complaint: Weakness Narrative Narrative: 80-year-old female presents via EMS with generalized weakness. She relates history that she has had diarrhea for about 3 years. She saw a nurse practitioner at her primary care provider's office recently who started her on vancomycin. She states that the diarrhea has stopped for the last few days. She relates history that they were performing a welfare check on her, and thought that she needed to come to the emergency department. She is unsure who called regarding her welfare. She does live at home alone. She states that she usually does not have a hard time taking care of herself. She denies any fevers or chills, no nausea or vomiting, no dysuria or hematuria. [facility] Medical History (Updated 09/18/25 @ 13:53 by Bud Marx MD) Microscopic colitis Anemia CKD (chronic kidney disease) Osteoarthritis History of irritable colon Essential hypertension Dyslipidemia Anxiety Diabetes Kidney disease GI bleed Non-smoker Upper GI bleed Duodenal ulcer Candidiasis of breast History of anemia History of hypertension History of chronic kidney disease History of hyperlipidemia History of diabetes insipidus Candidal intertrigo Stage 3b chronic kidney disease (CKD) Osteoporosis Hyperlipidemia Anemia Hypertension Lymphedema Morbid obesity History of gastroesophageal reflux (GERD) Type II diabetes mellitus Home Medications ?Medication ?Instructions ?Recorded ?Last Taken ?Type folic acid 1 mg tablet 1 mg PO DAILY@0800 SUPPLEMENT 01/21/17 05/03/25 History calcium 600 mg (as 1 tab PO DAILY SUPPLEMENT 03/05/19 05/03/25 History carbonate)-vitamin D3 20 mcg (800 unit) tablet (Caltrate with Vitamin D3) citalopram 20 mg tablet 20 mg PO [facility] mental health 01/22/22 05/03/25 History pentoxifylline 400 mg 400 mg PO DAILY PAD 02/15/24 05/03/25 History tablet,extended release vitamin E 268 mg (400 unit) capsule 268 mg PO DAILY Supplement 02/15/24 05/03/25 History ferrous sulfate 325 mg (65 mg 325 mg PO DAILY Supplement 06/05/24 05/03/25 History iron) tablet (FeroSul) amlodipine 5 mg tablet 5 mg PO DAILY 30 days #30 tabs 01/11/25 05/03/25 Rx carvedilol 12.5 mg tablet 6.25 mg PO BIDCM 04/02/25 05/03/25 History sitagliptin phosphate 50 mg tablet 50 mg PO QDAY 04/02/25 05/03/25 History (Januvia) aspirin 81 mg capsule 81 mg PO DAILY 05/04/25 05/03/25 History insulin glargine 100 unit/mL (3 12 unit subcut BID 05/04/25 05/03/25 History mL) subcutaneous pen (Lantus Solostar U-100 Insulin) pantoprazole 40 mg tablet,delayed 40 mg PO DAILY 05/04/25 05/03/25 History release acetaminophen 325 mg tablet 650 mg (2 x 325 mg) PO Q6H PRN PRN 05/09/25 Unknown Rx Pain 1-10 Or Fever >100.7 #0 tabs alendronate 70 mg tablet 70 mg PO QWEEK #14 tabs 09/16/25 Unknown Rx budesonide 3 mg 2 mg PO QAM Stomach Lining 09/18/25 Unknown History capsule,delayed,extended release lisinopril 10 mg tablet 10 mg PO DAILY 09/18/25 Unknown History metoprolol succinate 50 mg 100 mg PO DAILY 09/18/25 Unknown History tablet,extended release 24 hr potassium chloride 20 mEq 20 meq PO DAILY 09/18/25 Unknown History tablet,extended release(part/cryst) Allergy/AdvReac Type Severity Reaction Status Date / Time chlorhexidine Allergy Unknown Verified 09/18/25 10:18 Iodinated Contrast Media Allergy Other Verified 09/18/25 10:18 (CONTRASTS) iodine Allergy Unknown Verified 09/18/25 10:18 latex Allergy Rash Verified 09/18/25 10:18 vancomycin AdvReac Intermediate Other Verified 09/18/25 13:09 Family History Other Diabetes Surgical History History of elbow surgery History of tonsillectomy and adenoidectomy 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 Social History household members: none Smoking Status: Never smoker alcohol intake: never substance use type: does not use ROS ROS ED ROS Narrative Review of systems positive for generalized weakness and chronic diarrhea. Denies decreased p.o. intake, no fevers or chills, no abdominal pain. No dysuria or hematuria. No exacerbating or alleviating factors. EXAM Physical Exam Narrative Exam Narrative: Afebrile. Vital signs noted. Nontoxic-appearing. Cardiovascular examination feels regular rate and rhythm. Lungs are clear to auscultation bilaterally. Abdomen is soft and nontender with positive bowel sounds. No guarding or rebound. Neurological examination is nonfocal, nonlateralizing. Const Vital Signs: 09/18/25 10:15 09/18/25 10:19 09/18/25 10:45 Temperature 99 F Temperature Source Oral Pulse Rate 81 Respiratory Rate 20 H Respiratory Effort Normal Non-Labored Respiratory Pattern Normal Blood Pressure 161/68 H 149/44 H Blood Pressure Mean 99 74 Pulse Ox 97 Oxygen Delivery Method Room Air 09/18/25 11:00 09/18/25 11:15 09/18/25 11:15 Temperature Temperature Source Pulse Rate Respiratory Rate Respiratory Effort Respiratory Pattern Blood Pressure 145/59 H 154/60 H 154/60 H Blood Pressure Mean 83 81 81 Pulse Ox 100 95 Oxygen Delivery Method 09/18/25 11:30 09/18/25 11:45 09/18/25 12:00 Temperature Temperature Source Pulse Rate 87 88 Respiratory Rate 23 H 18 Respiratory Effort Respiratory Pattern Blood Pressure 159/67 H 155/62 H 144/89 H Blood Pressure Mean 93 88 105 Pulse Ox 100 99 94 Oxygen Delivery Method 09/18/25 12:15 Temperature Temperature Source Pulse Rate 89 Respiratory Rate 20 H Respiratory Effort Respiratory Pattern Blood Pressure 156/97 H Blood Pressure Mean 113 Pulse Ox 98 Oxygen Delivery Method MDM MDM MDM Narrative Medical decision making narrative: Differential diagnosis includes but not limited to dehydration versus other electrolyte abnormality versus generalized weakness of unknown cause versus infectious process including UTI versus pneumonia. However history and physical does not support either of these diagnoses. I reviewed her laboratory work and she has slightly elevated white count of 12.6 with hemoglobin stable at 8.7. Platelet count normal at 255. Electrolyte panel is significant for chloride elevated at 113 with CO2 low at 12.2 but normal anion gap. BUN is elevated at 60 with creatinine elevated at 8.62. When compared to prior labs, she has chronic kidney disease but her last was approximately 2.5. She has had elevation as high as 8 previously. Her LFTs are grossly unremarkable. In discussion with the patient, she states she is not a dialysis patient and that when she recently went to Dr. Robertson her spreader operator automatic, he was happy with her creatinine numbers. She states that she has been taking plenty of p.o. fluids. I did review that she has history of diabetes insipidus and her problem list. Chest x-ray interpreted by myself independently shows no evidence of an acute process, no pneumonia or pneumothorax. I reviewed her radiology report which confirms my independent interpretation. EKG obtained and interpreted by myself independently as well which demonstrates normal sinus rhythm at 83 bpm without ectopy or acute ST changes. No STEMI. Given her elevated creatinine, IV fluids were continued but I do feel that she will require admission for acute on chronic kidney injury. Patient was discussed with nephrology on-call for Dr. Robertson as well. I did review her nephrology note from April of this year where her creatinine was slowly coming down and was 5.6 when she was seen. In discussion with Dr. Robertson, he would like lactated Ringer's started at 150 mL/h after her IV fluid bolus. Additionally, he was made aware of the CT findings as I reviewed the radiology report and she has 5 mm renal pelvis stone causing mild hydronephrosis. I then discussed the patient with Dr. Graham for admission. He would like C. difficile and enteric stool pathogens sent for her chronic diarrhea. Disposition is admitted in stable condition. History & Record Review Discussion w/independent historian: Patient Additional record(s) reviewed:: Prior outpatient record, Prior ED visit and Prior labs Lab Data Attestation: I reviewed the patient's lab results. Labs: Laboratory Results - last 24 hr 09/18/25 09/18/25 10:25 12:12 WBC 12.6 H RBC 3.06 L Hgb 8.7 L Hct 27.5 L MCV 89.9 MCH 28.4 MCHC 31.6 L RDW Std Deviation 54.6 H RDW Coeff of [place] 16.7 H Plt Count 255 MPV 9.1 Immature Gran % (Auto) 1.000 H Neut % (Auto) 74.2 H Lymph % (Auto) 5.3 L [place] % (Auto) 15.4 H Eos % (Auto) 3.6 Baso % (Auto) 0.5 Absolute Neuts (auto) 9.3 H Absolute Lymphs (auto) 0.66 L Nucleated RBC % 0 Differential Comment SCANNED Sodium 140 Potassium 5.0 Chloride 113 H Carbon Dioxide 12.2 L Anion Gap 14 BUN 60 H Creatinine 8.62 H* Estim Creat Clear Calc 5.87 L* Est GFR (MDRD) Non-Af 4 L BUN/Creatinine Ratio 6.9 L Glucose 90 Calcium 7.8 Total Bilirubin 0.38 AST 12 ALT < 5 Alkaline Phosphatase 68 Total Protein 6.7 Albumin 3.4 Globulin 3.2 Albumin/Globulin Ratio 1.1 Urine Color Yellow Urine Clarity Clear Urine pH 5.0 Ur Specific [place] 1.010 Urine Protein 15 H Urine Glucose (UA) Normal Urine Ketones Negative Urine Occult Blood 10 H Urine Nitrite Negative Urine Bilirubin Negative Urine Urobilinogen Normal Ur Leukocyte Esterase 500 H Urine RBC 0 SEEN Urine WBC 10-25 SEEN Ur Squamous Epith Cells 5-10 SEEN Urine Bacteria 0 SEEN Urine Mucus 0 SEEN Radiography Chest X-Ray - ED: 1 View, Read by ED Physician, Read by Radiologist and No Acute Disease Diagnostic Testing: Clinical Impression(s) from Imaging Studies Abdomen/Pelvis CT 09/18/25 10:23 IMPRESSION: The gallbladder is contracted. 5 mm calculus in the right renal pelvis causing mild degree of right hydronephrosis. Small hyperdense cyst in the lateral inferior pole of the right kidney. Reading Location: [facility] Chest X-Ray 09/18/25 11:20 IMPRESSION: Examination somewhat limited by AP portable technique and mild patient motion. Lungs appear clear of acute disease. No pleural effusion or pneumothorax is noted. The cardiomediastinal silhouette is stable, without evidence of significant cardiomegaly. Asymmetric left glenohumeral joint arthritic changes are again noted. Reading Location: [facility] Management Discussion w/another healthcare provider: Hospitalist and Forensic Document Examiner (Nephrology) Discharge Plan Dx/Rx/DC Orders Clinical Impression: Acute kidney injury superimposed on chronic kidney disease, Dehydration, History of Clostridium difficile infection, Diarrhea Disposition Disposition: Acute Care Hospital [facility] Discharge Date/Time: 09/18/25 13:19
[2025-09-18] MEDS: 0.9% Normal Saline (1000mL) 1,000 ML 1000 ML IV (10:34)
[2025-09-18 10:37] LABS: Hematocrit 27.5 % (37-47); Hemoglobin 8.7 g/dL (12.0-15.0); Immature Granulocytes Count 0.130 X10^3/uL (0.0-0.0); Mean Corp Hgb Conc 31.6 g/dL (32-36); Mean Corpuscular Volume 89.9 fL (81-99); Mean Platelet Vol. 9.1 fl (6.2-12.0); NRBC Flagged by Analyzer 0 % (0-5); POSITIVE DIFFERENTIAL YES; Platelet Count 255 K/mm3 (150-450); RBC Distribution Width CV 16.7 % (11.6-14.6); RBC Distribution Width SD 54.6 fl (35.1-43.9); Red Blood Count 3.06 M/mm3 (4.2-5.4); White Blood Count 12.6 K/mm3 (4.4-11.0)
[2025-09-18 10:44] LABS: Differential Indicated SCAN CRITERIA MET
[2025-09-18 10:59] LABS: AST(SGOT) 12 U/L (<=31); Alanine Aminotransfer ALT/SGPT < 5 U/L (<=34); Albumin, Serum 3.4 g/dL (3.4-4.8); Alkaline Phosphatase 68 U/L (35-104); Anion Gap 14 (5-15); BUN 60 mg/dL (4-19); BUN/Creat Ratio 6.9 RATIO (10-20); Calcium,Total 7.8 mg/dL (7.6-11.0); Carbon Dioxide 12.2 mmol/L (21.0-32.0); Chloride 113 mmol/L (98-108); Estimated Creatinine Clearance 5.87 ml/min (50-250); Globulin 3.2 g/dL (2.2-4.2); Glucose 90 mg/dL (70-99); Potassium 5.0 mmol/L (3.3-5.1)
[2025-09-18 11:15] LABS: Differential Comment SCANNED
--- NOTE | 2025-09-18 11:20 | RAD_ITS ---
PROCEDURE: CHEST 1 VIEW (PORTABLE) 09/18/2025 REASON FOR EXAM: CORONARY ARTERY DISEASE, WEAKNESS TECHNIQUE: Frontal view of the chest. COMPARISON: AP chest of 01/08/2025. RAD/Chest 1 View (Portable) IMPRESSION: Examination somewhat limited by AP portable technique and mild patient motion. Lungs appear clear of acute disease. No pleural effusion or pneumothorax is no alexander. The cardiomediastinal silhouette is stable, without evidence of significant car diomegaly. Asymmetric left glenohumeral joint arthritic changes are again noted. Reading Location: [place] [id number]
[2025-09-18 12:15] LABS: Mucous, Urine 0 SEEN /hpf (<or=2+); Red Blood Cells-Urine 0 SEEN /hpf (0-5)
[2025-09-18 12:27] LABS: Color, Urine Yellow (Yellow); Glucose, Dipstick Normal (Normal); Ketone-Dipstick Negative (Negative); Leukocyte Esterase-Dipstick 500 /ul (Negative); Nitrite-Dipstick Negative (Negative); Occult Blood-Urine 10 /ul (Negative); Protein-Dipstick 15 mg/dl (Negative); Specific Gravity, Urine 1.010 (1.002-1.030); Urine Bilirubin Dipstick Negative (Negative)
[2025-09-18 12:43] LABS: Squamous Epithelial Cells - UA 5-10 SEEN /hpf (5-10)
[2025-09-18] MEDS: Lactated Ringers 1,000 ML 150 ML IV ×3 (13:07→21:50)
--- NOTE | 2025-09-18 13:15 | PCM.HP.STD ---
HPI - General General Date of Admission: 09/18/25 Date of Service: 09/18/25 Chief Complaint: weakness HPI Narrative AZUL NAVARRETE, is a 80 F with pmhx C diff, CKD st III pt of Dr. Robertson, T2DM, chronic anemia, HTN, GERD, who presents for weakness. Pt was seen by her PCP about 1 week ago for diarrhea as she has a hx of Cdiff she was started on oral vancomycin. The patient states that after she started taking the vancomycin she started having visual hallucinations - notably she was in her apartment but felt that it looked like a home, then her dentist office, then her cat turned into a tiger. She states she called her PCP but never heard back. She was at home today and EMS came to her house to do a well check. She is unaware who called them or why. They found her weak and brought her to the ER. She states she is chronically weak and usually ambualtes with a walker, but is somewhat weaker than normal. She has ongoing diarrhea and last BM was in the ER which was loose. She denies abdominal pain, nausea, or vomiting, fevers or chills. She states she has a mild cold. [facility] Medical History (Updated 09/18/25 @ 11:13 by Bud Marx MD) Microscopic colitis Anemia CKD (chronic kidney disease) Osteoarthritis History of irritable colon Essential hypertension Dyslipidemia Anxiety Diabetes Kidney disease GI bleed Non-smoker Upper GI bleed Duodenal ulcer Candidiasis of breast History of anemia History of hypertension History of chronic kidney disease History of hyperlipidemia History of diabetes insipidus Candidal intertrigo Stage 3b chronic kidney disease (CKD) Osteoporosis Hyperlipidemia Anemia Hypertension Lymphedema Morbid obesity History of gastroesophageal reflux (GERD) Type II diabetes mellitus Home Medications ?Medication ?Instructions ?Recorded ?Last Taken ?Type folic acid 1 mg tablet 1 mg PO DAILY@0800 SUPPLEMENT 01/21/17 05/03/25 History calcium 600 mg (as 1 tab PO DAILY SUPPLEMENT 03/05/19 05/03/25 History carbonate)-vitamin D3 20 mcg (800 unit) tablet (Caltrate with Vitamin D3) citalopram 20 mg tablet 20 mg PO [facility] mental health 01/22/22 05/03/25 History pentoxifylline 400 mg 400 mg PO DAILY PAD 02/15/24 05/03/25 History tablet,extended release vitamin E 268 mg (400 unit) capsule 268 mg PO DAILY Supplement 02/15/24 05/03/25 History ferrous sulfate 325 mg (65 mg 325 mg PO DAILY Supplement 06/05/24 05/03/25 History iron) tablet (FeroSul) amlodipine 5 mg tablet 5 mg PO DAILY 30 days #30 tabs 01/11/25 05/03/25 Rx carvedilol 12.5 mg tablet 6.25 mg PO BIDCM 04/02/25 05/03/25 History sitagliptin phosphate 50 mg tablet 50 mg PO QDAY 04/02/25 05/03/25 History (Januvia) aspirin 81 mg capsule 81 mg PO DAILY 05/04/25 05/03/25 History insulin glargine 100 unit/mL (3 12 unit subcut BID 05/04/25 05/03/25 History mL) subcutaneous pen (Lantus Solostar U-100 Insulin) pantoprazole 40 mg tablet,delayed 40 mg PO DAILY 05/04/25 05/03/25 History release acetaminophen 325 mg tablet 650 mg (2 x 325 mg) PO Q6H PRN PRN 05/09/25 Unknown Rx Pain 1-10 Or Fever >100.7 #0 tabs alendronate 70 mg tablet 70 mg PO QWEEK #14 tabs 09/16/25 Unknown Rx budesonide 3 mg 2 mg PO QAM Stomach Lining 09/18/25 Unknown History capsule,delayed,extended release lisinopril 10 mg tablet 10 mg PO DAILY 09/18/25 Unknown History metoprolol succinate 50 mg 100 mg PO DAILY 09/18/25 Unknown History tablet,extended release 24 hr potassium chloride 20 mEq 20 meq PO DAILY 09/18/25 Unknown History tablet,extended release(part/cryst) Allergy/AdvReac Type Severity Reaction Status Date / Time chlorhexidine Allergy Unknown Verified 09/18/25 10:18 Iodinated Contrast Media Allergy Other Verified 09/18/25 10:18 (CONTRASTS) iodine Allergy Unknown Verified 09/18/25 10:18 latex Allergy Rash Verified 09/18/25 10:18 vancomycin AdvReac Intermediate Other Verified 09/18/25 13:09 Family History Other Diabetes Surgical History History of elbow surgery History of tonsillectomy and adenoidectomy 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 Social History household members: none Smoking Status: Never smoker alcohol intake: never substance use type: does not use ROS Constitutional Constitutional: Denies chills, fatigue or fever(s) ENT HEENT: Reports nasal congestion Cardiovascular Cardiovascular: Reports edema; Denies chest pain Respiratory/Chest Respiratory/Chest: Denies cough or dyspnea Gastrointestinal Gastrointestinal: Reports diarrhea; Denies abdominal pain, hematochezia, nausea or vomiting Genitourinary Genitourinary: Denies burning urination, hematuria, urinary frequency or urinary urgency Musculoskeletal Musculoskeletal: Reports other Details: leg pain Neurologic Neurologic: Reports other Details: hallucinations Psychiatric Psychiatric: Denies anxiety or depression Hematologic/Lymphatic Hematologic/Lymphatic: Reports anemia Allergic/Immunologic Allergic/Immunologic: Reports rhinitis Vital Signs Vital Signs Vital Signs: 09/18/25 10:15 09/18/25 10:19 09/18/25 10:45 Temperature 99 F Temperature Source Oral Pulse Rate 81 Respiratory Rate 20 H Respiratory Effort Normal Non-Labored Respiratory Pattern Normal Blood Pressure 161/68 H 149/44 H Blood Pressure Mean 99 74 Pulse Ox 97 Oxygen Delivery Method Room Air 09/18/25 11:00 09/18/25 11:15 09/18/25 11:15 Temperature Temperature Source Pulse Rate Respiratory Rate Respiratory Effort Respiratory Pattern Blood Pressure 145/59 H 154/60 H 154/60 H Blood Pressure Mean 83 81 81 Pulse Ox 100 95 Oxygen Delivery Method 09/18/25 11:30 09/18/25 11:45 09/18/25 12:00 Temperature Temperature Source Pulse Rate 87 88 Respiratory Rate 23 H 18 Respiratory Effort Respiratory Pattern Blood Pressure 159/67 H 155/62 H 144/89 H Blood Pressure Mean 93 88 105 Pulse Ox 100 99 94 Oxygen Delivery Method 09/18/25 12:15 09/18/25 12:52 Temperature 97.9 F Temperature Source Pulse Rate 89 89 Respiratory Rate 20 H 20 H Respiratory Effort Respiratory Pattern Blood Pressure 156/97 H 156/97 H Blood Pressure Mean 113 116 Pulse Ox 98 98 Oxygen Delivery Method Weight Weight: 104.1 kg Body Mass Index (BMI) 43.3 Physical Exam Const alert and oriented x3 General Appearance: cooperative HEENT normocephalic and head/scalp atraumatic Eyes PERRL Neck no lymphadenopathy Resp normal respiratory effort and clear to auscultation bilaterally Cardio regular rate, regular rhythm and no murmurs GI normal to inspection, nondistended, normoactive bowel sounds, soft to palpation and non-tender Extremity Extremity Narrative: BL 2+ pitting edema Neuro oriented x3 Sensorium / Orientation: awake Speech: speech normal Results Lab / Micro Data 09/18/25 10:25 09/18/25 10:25 Labs: Laboratory Results - last 24 hr 09/18/25 10:25: WBC 12.6 H, RBC 3.06 L, Hgb 8.7 L, Hct 27.5 L, MCV 89.9, MCH 28.4, MCHC 31.6 L, RDW Std Deviation 54.6 H, RDW Coeff of [place] 16.7 H, Plt Count 255, MPV 9.1, Immature Gran % (Auto) 1.000 H, Neut % (Auto) 74.2 H, Lymph % (Auto) 5.3 L, [place] % (Auto) 15.4 H, Eos % (Auto) 3.6, Baso % (Auto) 0.5, Absolute Neuts (auto) 9.3 H, Absolute Lymphs (auto) 0.66 L, Nucleated RBC % 0, Differential Comment SCANNED, Sodium 140, Potassium 5.0, Chloride 113 H, Carbon Dioxide 12.2 L, Anion Gap 14, BUN 60 H, Creatinine 8.62 H*, Estim Creat Clear Calc 5.87 L*, Est GFR (MDRD) Non-Af 4 L, BUN/Creatinine Ratio 6.9 L, Glucose 90, Calcium 7.8, Total Bilirubin 0.38, AST 12, ALT < 5, Alkaline Phosphatase 68, Total Protein 6.7, Albumin 3.4, Globulin 3.2, Albumin/Globulin Ratio 1.1 09/18/25 12:12: Urine Color Yellow, Urine Clarity Clear, Urine pH 5.0, Ur Specific [place] 1.010, Urine Protein 15 H, Urine Glucose (UA) Normal, Urine Ketones Negative, Urine Occult Blood 10 H, Urine Nitrite Negative, Urine Bilirubin Negative, Urine Urobilinogen Normal, Ur Leukocyte Esterase 500 H, Urine RBC 0 SEEN, Urine WBC 10-25 SEEN, Ur Squamous Epith Cells 5-10 SEEN, Urine Bacteria 0 SEEN, Urine Mucus 0 SEEN Imaging Radiology Impression Abdomen/Pelvis CT 09/18/25 10:23 IMPRESSION: The gallbladder is contracted. 5 mm calculus in the right renal pelvis causing mild degree of right hydronephrosis. Small hyperdense cyst in the lateral inferior pole of the right kidney. Reading Location: [facility] Chest X-Ray 09/18/25 11:20 IMPRESSION: Examination somewhat limited by AP portable technique and mild patient motion. Lungs appear clear of acute disease. No pleural effusion or pneumothorax is noted. The cardiomediastinal silhouette is stable, without evidence of significant cardiomegaly. Asymmetric left glenohumeral joint arthritic changes are again noted. Reading Location: [facility] Assessment & Plan Assessment/Plan (1) Acute kidney injury superimposed on chronic kidney disease: PLAN: 1. OSVALDO on CKD III - suspect 2/2 dehydration 2/[address] Robertson, consulted. Continue LR IVF resuscitation. Repeat AM BMP. CT abdomen shows 5 mm calculus right renal pelvis mild hydronephrosis, however she has no abd pain. Hold lavonne-i. 2. C diff colitis - recently placed on oral vanc for this by PCP. She has stopped taking it for the last few days because she thought it was making her hallucinate. This will be restarted and her monitored by side effects. She has no hallucinations at this time. Stool sent for culture. WBC elevated at 12.6. She has an abnormal UA but no urinary symptoms and no bacteria in the urine. CXR is negative. 3. Chronic normocytic anemia - Hgb 8.7 no obvious signs of bleeding, pt denies blood in stool. Will recheck CBC in AM. Home iron continued. 4. Debility - complicated by #1. PTOT evals ordered. Usually ambulates with a walker. 5. DMt2 - hold orals, continue lantus, add SSI, ACHS glucometry, carb controlled diet. 6. GERD - on PPI 7. HTN - lavonne held. 8. Anx/dep - on celexa 9. Chronic Lymphedema - pt notes this is not worse than baseline. add wraps if needed. DVT ppx: heparin DC planning: will need PTOT evals and transplant case manager to assist with DC planning as she was admitted following a well check with worsening generalized weakness. This patient was seen by Carlos Dumont PA-C under the supervision of Dr. Graham
--- NOTE | 2025-09-18 16:35 | RAD_ITS ---
PROCEDURE: FOOT MIN 3 VIEWS 09/18/2025 REASON FOR EXAM: RIGHT LATERAL FOOT PAIN TECHNIQUE: Procedure Code: RADFO Modality: DX Procedure: FOOT MIN 3 VIEWS Laterality: Right COMPARISON: None. RAD/Foot min 3 Views IMPRESSION: A subacute or chronic transverse FRACTURE of the proximal shaft of the right 5t h metatarsal bone is noted, not significantly displaced. No osseous destructive change is clearly evident to suggest the presence of ost eomyelitis. Further imaging may be obtained if and as clinically appropriate. No soft tissue gas is appreciated. Mild degenerative changes are seen of the tarsal-metatarsal joints, midfoot, an d to a lesser extent the visualized toes. Mild degenerative changes seen of the 1st metatarsophalangeal joint, without signifi cant hallux valgus deformity. Moderate inferior and posterior calcaneal spurring is seen. Reading Location: [place] [address]
[2025-09-18] MEDS: Vancomycin 125 MG/5 ML Susp PO.SYRINGE PO (18:03)
[2025-09-18 19:22] LABS: Ferritin 344 ng/mL (22-378); Iron 29 ug/dL (50-170); Iron Binding Capacity,Unsat 116 ug/dL (228-428)
[2025-09-18 19:27] LABS: Iron Binding Capacity,Total 145 ug/dL (250-450)
[2025-09-18] MEDS: Heparin Injection (Vial) 5,000 UNIT/ML VIAL 5000 UNIT SC (22:09)
[2025-09-19] MEDS: Vancomycin 125 MG/5 ML Susp PO.SYRINGE PO ×4 (00:33→18:12)
[2025-09-19 04:12] VITALS: BP 136/55; PULSE 72; RESP 18; TEMP 36.4; O2SAT 94
[2025-09-19] MEDS: Lactated Ringers 1,000 ML 150 ML IV ×2 (04:15→16:40)
[2025-09-19 07:42] LABS: Hematocrit 24.5 % (37-47); Hemoglobin 7.9 g/dL (12.0-15.0); Immature Granulocytes Count 0.120 X10^3/uL (0.0-0.0); Mean Corp Hgb Conc 32.2 g/dL (32-36); Mean Corpuscular Volume 89.4 fL (81-99); Mean Platelet Vol. 9.0 fl (6.2-12.0); NRBC Flagged by Analyzer 0 % (0-5); POSITIVE DIFFERENTIAL YES; Platelet Count 227 K/mm3 (150-450); RBC Distribution Width CV 16.6 % (11.6-14.6); RBC Distribution Width SD 54.5 fl (35.1-43.9); Red Blood Count 2.74 M/mm3 (4.2-5.4); White Blood Count 10.0 K/mm3 (4.4-11.0)
[2025-09-19 08:10] LABS: Anion Gap 13 (5-15); BUN 53 mg/dL (4-19); BUN/Creat Ratio 6.9 RATIO (10-20); Calcium,Total 7.3 mg/dL (7.6-11.0); Carbon Dioxide 11.8 mmol/L (21.0-32.0); Chloride 115 mmol/L (98-108); Estimated Creatinine Clearance 6.72 ml/min (50-250); Glucose 96 mg/dL (70-99); Potassium 4.8 mmol/L (3.3-5.1)
[2025-09-19 08:12] VITALS: BP 168/58; PULSE 71; RESP 18; TEMP 36.6; O2SAT 98
[2025-09-19 08:29] VITALS: BP 168/58; PULSE 71; RESP 18; TEMP 36.6; O2SAT 98
[2025-09-19 08:37] LABS: Differential Indicated SCAN CRITERIA MET
[2025-09-19] MEDS: Heparin Injection (Vial) 5,000 UNIT/ML VIAL 5000 UNIT SC ×2 (09:56→21:09)
[2025-09-19] MEDS: Ammonium Lactate 225 gm Bottle 1 APPLIC TOPICAL ×3 (09:58→21:11)
[2025-09-19] MEDS: Insulin Glargine-YFGN 100 UNIT/ML Pen 12 UNIT SC ×2 (10:03→21:11)
--- NOTE | 2025-09-19 11:18 | CON.PCM.RE_ITS ---
Assessment & Plan Assessment/Plan (1) Acute kidney injury superimposed on chronic kidney disease: PLAN: CKD stage IV at baseline, creatinine fluctuates between [address] abdomen reviewed, there is a small 5 mm kidney stone. This is small enough to pass on its own. She is asymptomatic. History of diarrhea for at least 1 week. History of chronic colitis. Acute renal failure is more likely volume depletion mediated. Creatinine somewhat better today with IV fluids. Acidosis. Gap and nongap. Continue Ringer's lactate. Will likely switch to bicarbonate solution tomorrow. Discussed with admitting attending HPI Consult Data Date of Consult: 09/19/25 HPI Narrative Reason for Consultation: Acute renal failure HPI Narrative: AZUL NAVARRETE, is a 80 F who presents to the hospital with change in mental status, confusion. She is well-known to me from office. She has known history of CKD stage IV, baseline creatinine fluctuates between 2-2.5. 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 Apparently has been having diarrhea for the last 1 week or so, went to primary care physician, was given oral vancomycin for C. difficile colitis. Apparently resulted in confusion, neighbor called 911. She is alert, awake oriented today. Feels much better today. Denies any urinary complaints prior to coming in or now. Lower extremity erythema, she says it has been present for a while. During the last visit in June in office, they were not this red. Denies any hematuria, dysuria, fever, chills, flank pain. [facility] Medical History (Updated 09/18/25 @ 13:53 by Bud Marx MD) Microscopic colitis Anemia CKD (chronic kidney disease) Osteoarthritis History of irritable colon Essential hypertension Dyslipidemia Anxiety Diabetes Kidney disease GI bleed Non-smoker Upper GI bleed Duodenal ulcer Candidiasis of breast History of anemia History of hypertension History of chronic kidney disease History of hyperlipidemia History of diabetes insipidus Candidal intertrigo Stage 3b chronic kidney disease (CKD) Osteoporosis Hyperlipidemia Anemia Hypertension Lymphedema Morbid obesity History of gastroesophageal reflux (GERD) Type II diabetes mellitus Home Medications ?Medication ?Instructions ?Recorded ?Last Taken ?Type folic acid 1 mg tablet 1 mg PO DAILY@0800 SUPPLEMEN T 01/21/17 05/03/25 History calcium 600 mg (as 1 tab PO DAILY SUPPLEMENT 05/03/25 History carbonate)-vitamin D3 20 mcg (800 unit) tablet (Caltrate with Vitamin D3) citalopram 20 mg tablet 20 mg PO QHS mental health 0 01/22/22 05/03/25 History pentoxifylline 400 mg 400 mg PO DAILY PAD 02/15/24 05/03/25 History tablet,extended release vitamin E 268 mg (400 unit) capsule 268 mg PO DAILY Ziegler pplement 02/15/24 05/03/25 History ferrous sulfate 325 mg (65 mg 325 mg PO DAILY Suppleme nt 06/05/24 05/03/25 History iron) tablet (FeroSul) amlodipine 5 mg tablet 5 mg PO DAILY 30 days #30 ta bs 01/11/25 05/03/25 Rx carvedilol 12.5 mg tablet 6.25 mg PO BIDCM 04/02/25 History sitagliptin phosphate 50 mg tablet 50 mg PO QDAY 04/0205/03/25 History (Januvia) aspirin 81 mg capsule 81 mg PO DAILY 05/04/2503/23 History insulin glargine 100 unit/mL (3 12 unit subcut BID 04/2305/03/25 History mL) subcutaneous pen (Lantus Solostar U-100 Insulin) pantoprazole 40 mg tablet,delayed 40 mg PO DAILY 05/0405/03/25 History release acetaminophen 325 mg tablet 650 mg (2 x 325 mg) PO Q6H PRN PRN 05/09/25 Unknown Rx Pain 1-10 Or Fever >100.7 #0 tabs alendronate 70 mg tablet 70 mg PO QWEEK #14 tabs 08/30 06/23 Unknown Rx budesonide 3 mg 2 mg PO QAM Stomach Lining 1 11/18/24 Unknown History capsule,delayed,extended release lisinopril 10 mg tablet 10 mg PO DAILY 09/18/25 Unkn own History metoprolol succinate 50 mg 100 mg PO DAILY 09/18/25 Un known History tablet,extended release 24 hr potassium chloride 20 mEq 20 meq PO DAILY 09/18/25 Unk nown History tablet,extended release(part/cryst) Allergy/AdvReac Type Severity Reaction Status Date / Time chlorhexidine Allergy Unknown Verified 09/18/25 10:18 Iodinated Contrast Media Allergy Other Verified 09/18/25 10:18 (CONTRASTS) iodine Allergy Unknown Verified 09/18/25 10:18 latex Allergy Rash Verified 09/18/25 10:18 vancomycin AdvReac Intermediate Other Verified 09/18/25 13:09 Family History Other Diabetes Surgical History History of elbow surgery History of tonsillectomy and adenoidectomy 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 Social History household members: none Smoking Status: Never smoker alcohol intake: never substance use type: does not use ROS ROS Narrative Negative except above Physical Exam Narrative Alert awake oriented x 3 no obvious distress no pallor no icterus no JVD s1s2 no murmurs lungs clear abdomen soft no organomegaly Lab / Micro Data 09/19/25 07:22 09/19/25 07:22 Labs: Laboratory Results - last 24 hr 09/18/25 11:07: POC Glucose 67 L 09/18/25 11:27: POC Glucose 81 09/18/25 12:12: Urine Color Yellow, Urine Clarity Clear, Urine pH 5.0, Ur Specific [place] 1.010, Urine Protein 15 H, Urine Glucose (UA) Normal, Urine Ketones Negative, Urine Occult Blood 10 H, Urine Nitrite Negative, Urine Bilirubin Negative, Urine Urobilinogen Normal, Ur Leukocyte Esterase 500 H, Urine RBC 0 SEEN, Urine WBC 10-25 SEEN, Ur Squamous Epith Cells 5-10 SEEN, Urine Bacteria 0 SEEN, Urine Mucus 0 SEEN 09/18/25 16:09: POC Glucose 92 09/18/25 18:00: Iron 29 L, TIBC 145 L, Iron Saturation 20.0, Unsaturated IBC 116 L, Ferritin 344 09/18/25 22:06: POC Glucose 97 09/19/25 07:00: POC Glucose 92 09/19/25 07:22: WBC 10.0, RBC 2.74 L, Hgb 7.9 L, Hct 24.5 L, MCV 89.4, MCH 28.8, MCHC 32.2, RDW Std Deviation 54.5 H, RDW Coeff of [place] 16.6 H, Plt Count 227, MPV 9.0, Immature Gran % (Auto) 1.200 H, Neut % (Auto) 71.0 H, Lymph % (Auto) 6.9 L, [place] % (Auto) 15.6 H, Eos % (Auto) 4.8, Baso % (Auto) 0.5, Absolute Neuts (auto) 7.1, Absolute Lymphs (auto) 0.69 L, Nucleated RBC % 0, Sodium 139, Potassium 4.8, Chloride 115 H, Carbon Dioxide 11.8 L, Anion Gap 13, BUN 53 H, Creatinine 7.66 H*, Estim Creat Clear Calc 6.72 L*, Est GFR (MDRD) Non-Af 5 L, B UN/Creatinine Ratio 6.9 L, Glucose 96, Calcium 7.3 L Micro: Microbiology 09/18/25 12:55 Stool Enteric Bacteriology - Final 09/18/25 12:55 Stool C. difficile GDH Antigen & Toxins - Final 09/18/25 12:55 Stool Clostridioides difficile (PCR) - Final Imaging Radiology Impression Abdomen/Pelvis CT 09/18/25 10:23 IMPRESSION: The gallbladder is contracted. 5 mm calculus in the right renal pelvis causing mild degree of right hydronephrosis. Small hyperdense cyst in the lateral inferior pole of the right kidney. Reading Location: [facility] Chest X-Ray 09/18/25 11:20 IMPRESSION: Examination somewhat limited by AP portable technique and mild patient motion. Lungs appear clear of acute disease. No pleural effusion or pneumothorax is noted. The cardiomediastinal silhouette is stable, without evidence of significant cardiomegaly. Asymmetric left glenohumeral joint arthritic changes are again noted. Reading Location: [facility] Foot X-Ray 09/18/25 16:35 IMPRESSION: A subacute or chronic transverse FRACTURE of the proximal shaft of the right 5th metatarsal bone is noted, not significantly displaced. No osseous destructive change is clearly evident to suggest the presence of osteomyelitis. Further imaging may be obtained if and as clinically appropriate. No soft tissue gas is appreciated. Mild degenerative changes are seen of the tarsal-metatarsal joints, midfoot, and to a lesser extent the visualized toes. Mild degenerative changes seen of the 1st metatarsophalangeal joint, without significant hallux valgus deformity. Moderate inferior and posterior calcaneal spurring is seen. Reading Location: [place] [id number]
--- NOTE | 2025-09-19 11:23 | CASEMGMT ---
Discharge Planning A list of?SNF providers including quality and resource use data and consistent with the patient's preferred geographic region, medical needs, and insurance network was created in [employer] Guide.? This list was provided to the SW. Kortney Roberto Discharge Planning Asst.
--- NOTE | 2025-09-19 12:19 | CASEMGMT ---
Social Work SW?to room to meet with patient for initial transition planning/care coordination?assessment.?SW?introduced self and role at [facility].? Pt voices understanding and consents to?assessment.? Pt is A/Ox4 and answers all questions appropriately.?? Care providers, pharmacy, and demographics verified. PCP: Felicita Specialists: Marcelo, nephrology Friend,OLGA Butler, podiatry Preferred Pharmacy: [facility] [place], [place] Insurance: [employer] Medicare Prescription Benefit:? Yes Living Will/HPOA:? Pt has a living will and Health Care POA on file naming niece Letha Seth LNOK: Letha Seth, nijolie Living Arrangements: Pt lives alone in a one story apartment that has 1 - 4 inch step to enter. pt states that she has been having more difficulty recently caring for herself and more difficulty completing ADLs. Pt states that she has a cleaning lady twice a month but no home health aids to assist with personal care. Pt states she does some cooking and lack of interest is more prohibitive than lack of ability regarding getting meals around. Pt states that her landlord has just put a 30 day eviction notice on pt's door. Pt states she and niece talked last night about moving to assisted living permanently. Transportation:? Pt drives DME: ? Walker, quad cane, raised toilet seat, lift recliner HHC/SNF: [facility], [facility] and the [facility] PLAN: SW and pt discussed discharge options at length. Pt acknowledges that she is having difficulty caring for herself at home and is open to the idea of an assisted living. SW presented idea of going to a SNF for rehab to maximize strength and ability to care for herself. While in the SNF, it will give pt and niece time to work out details of going to assisted living. Pt is agreeable to this plan. A list of SNF providers including quality and resource use data and consistent with the patient?s preferred geographic region, medical needs, and insurance network were provided from the [employer]Port Guide. Pt preferred provider is [facility]. Pt is inquiring if she can bring her cat. SW educated that if cat is vet check and vaccinated, most facilities allow pet visits. [facility] does allow pets to stay. Pt gave permission for SW to call pt niece/HCPDANNY BlissLetha. Call placed to Letha and dc plan discussed. Letha confirmed that 30 day eviction notice was placed on pt apartment and that she and pt discussed vermin exterminator placement and assisted living. Letha confirms preference is [facility] and that Letha has an appointment on Monday at [facility] to discuss penitentiary options. TRI briefly explained SNF/[place] payment (insurance vs private pay vs Medicaid) and med[place]. Letha states pt does have some funds to pay for penitentiary care for a bit, but is uncertain how long. TRI encouraged Letha to get information about finances as SNF will want this to determine vermin exterminator plans. DC scheduling assistant updated and to send referral to [facility]. [facility], Skilled level of care. Pending acceptance and precert ANJELICA Guido
--- NOTE | 2025-09-19 14:20 | CASEMGMT ---
Addendum entered by Kortney Roberto 09/19/25 15:39: [facility] has accepted and will submit for precert. SW updated. Original Note: Discharge Planning [facility]erral sent via [facility] to [facility]. Kortney Roberto DC Planning Asst.
[2025-09-19 14:53] VITALS: BP 143/63; PULSE 68; RESP 18; TEMP 36.6; O2SAT 98
--- NOTE | 2025-09-19 15:35 | CASEMGMT ---
Social Work [facility] has accepted pt and will start precert at this time. SW met with pt and informed and pt is agreeable to this dc plan. Phone call to pt niece Letha and updated and Letha is agreeable. Plan is for skilled care at [facility]. Letha to meet with [facility] on Monday to discuss jointer machine operator options. Plan: [facility], pending precert ANJELICA Lui
[2025-09-19 16:00] VITALS: BP 143/68; PULSE 68; RESP 18; TEMP 36.6; O2SAT 98
--- NOTE | 2025-09-19 18:43 | PN.HOSP_ITS ---
Reason for Visit Chief Complaint: weakness Subjective Subjective Patient was seen and examined today, her creatinine has improved, she continues to receive fluids. imaging services director states that the patient will need to go to an extended care facility, they are evicting her from her home. Patient's hemoglobin today was 7.9, I will repeat her CBC in the morning. Patient's iron level was 29 with a normal ferritin. This may indicate anemia of chronic disease. Objective Data Objective Data Vital Signs: Vital Signs Temp Pulse Resp BP Pulse Ox O2 Del Method 97.8 F 68 18 143/68 H 98 Room Air 09/19/25 16:00 09/19/25 16:00 09/19/25 16:00 09/19/25 16:00 09/19/25 16:00 09/19/25 17:00 Oxygen Delivery Method Room Air Weight: 103.555 kg Body Mass Index (BMI) 41.7 Intake & Output: Intake and Output for Last 24 Hours 09/17/25 09/18/25 09/19/25 23:59 23:59 23:59 Intake Total 3495 / 3495 4150 / 4150 Balance 3495 / 3495 4150 / 4150 Lab / Micro Data 09/20/25 06:08 09/20/25 06:08 Labs: Laboratory Results - last 24 hr 09/18/25 18:00: Iron 29 L, TIBC 145 L, Iron Saturation 20.0, Unsaturated IBC 116 L, Ferritin 344 09/18/25 22:06: POC Glucose 97 09/19/25 07:00: POC Glucose 92 09/19/25 07:22: WBC 10.0, RBC 2.74 L, Hgb 7.9 L, Hct 24.5 L, MCV 89.4, MCH 28.8, MCHC 32.2, RDW Std Deviation 54.5 H, RDW Coeff of [place] 16.6 H, Plt Count 227, MPV 9.0, Immature Gran % (Auto) 1.200 H, Neut % (Auto) 71.0 H, Lymph % (Auto) 6.9 L, [place] % (Auto) 15.6 H, Eos % (Auto) 4.8, Baso % (Auto) 0.5, Absolute Neuts (auto) 7.1, Absolute Lymphs (auto) 0.69 L, Nucleated RBC % 0, Sodium 139, Potassium 4.8, Chloride 115 H, Carbon Dioxide 11.8 L, Anion Gap 13, BUN 53 H, Creatinine 7.66 H*, Estim Creat Clear Calc 6.72 L*, Est GFR (MDRD) Non-Af 5 L, B UN/Creatinine Ratio 6.9 L, Glucose 96, Calcium 7.3 L 09/19/25 11:58: POC Glucose 143 H 09/19/25 16:17: POC Glucose 84 Micro: Microbiology 09/18/25 12:55 Stool Enteric Bacteriology - Final 09/18/25 12:55 Stool C. difficile GDH Antigen & Toxins - Final 09/18/25 12:55 Stool Clostridioides difficile (PCR) - Final Physical Exam Narrative alert and oriented x3 General Appearance: cooperative, appropriate HEENT normocephalic and head/scalp atraumatic Eyes PERRL, EOMI Neck no lymphadenopathy, thyroid is nonenlarged Resp normal respiratory effort and clear to auscultation bilaterally Cardio regular rate, regular rhythm and no murmurs GI normal to inspection, nondistended, normoactive bowel sounds, soft to palpation and non-tender Extremity Extremity Narrative: BL 2+ pitting edema Neuro oriented x3 Sensorium / Orientation: awake Speech: speech normal Psych: Patient is alert and appropriate, she does not appear anxious or depressed Assessment & Plan Assessment/Plan (1) Acute kidney injury superimposed on chronic kidney disease: PLAN: 1. OSVALDO on CKD III - suspect 2/2 volume depletion 2/2 diarrhea. Patient is being seen by nephrology, IV fluids will continue 2. C diff colitis -patient's antigen was negative, PCR for the organism was positive, I have elected to treat the patient for 10 days-it is very hard to determine whether the patient is having diarrhea from C. difficile or her usual chronic diarrhea as the patient is a poor informant. 3. Chronic normocytic anemia -hemoglobin was 7.9 today, CBC will be rechecked tomorrow 4. Debility - complicated by #1. PTOT evals ordered. Usually ambulates with a walker. Patient will need placement in a skilled facility, pre-CERT is pending 5. DMt2 - hold orals, continue lantus, add SSI, ACHS glucometry, carb controlled diet. 6. GERD - on PPI 7. HTN - lavonne held. 8. Anx/dep - on celexa 9. Chronic Lymphedema -no treatment indicated at this time DVT ppx: heparin Total clinical time spent by myself addressing the patient's medical issues, reviewing all of her data, and collaborating with patient's care team: 35 minutes Charges/Coding Visit Charges Inpatient E&M: 35234 Subs Hosp L2
[2025-09-19 21:01] VITALS: BP 136/55; PULSE 70; RESP 18; TEMP 36.7; O2SAT 94
[2025-09-20] MEDS: Lactated Ringers 1,000 ML 150 ML IV ×3 (00:15→11:50)
[2025-09-20] MEDS: Vancomycin 125 MG/5 ML Susp PO.SYRINGE PO ×4 (00:27→18:42)
[2025-09-20 05:41] VITALS: BP 150/61; PULSE 66; RESP 18; TEMP 36.6; O2SAT 94
[2025-09-20] MEDS: Ammonium Lactate 225 gm Bottle 1 APPLIC TOPICAL ×3 (05:59→22:10)
[2025-09-20 06:20] LABS: Hematocrit 24.0 % (37-47); Hemoglobin 7.6 g/dL (12.0-15.0); Immature Granulocytes Count 0.120 X10^3/uL (0.0-0.0); Mean Corp Hgb Conc 31.7 g/dL (32-36); Mean Corpuscular Volume 88.2 fL (81-99); Mean Platelet Vol. 9.2 fl (6.2-12.0); NRBC Flagged by Analyzer 0 % (0-5); POSITIVE DIFFERENTIAL YES; Platelet Count 219 K/mm3 (150-450); RBC Distribution Width CV 16.5 % (11.6-14.6); RBC Distribution Width SD 53.6 fl (35.1-43.9); Red Blood Count 2.72 M/mm3 (4.2-5.4); White Blood Count 9.7 K/mm3 (4.4-11.0)
[2025-09-20 06:24] LABS: Differential Indicated SCAN CRITERIA MET
[2025-09-20 06:43] LABS: Differential Comment SCANNED
[2025-09-20 06:46] LABS: Anion Gap 12 (5-15); BUN 48 mg/dL (4-19); BUN/Creat Ratio 6.8 RATIO (10-20); Calcium,Total 7.5 mg/dL (7.6-11.0); Carbon Dioxide 11.8 mmol/L (21.0-32.0); Chloride 114 mmol/L (98-108); Estimated Creatinine Clearance 7.29 ml/min (50-250); Glucose 78 mg/dL (70-99); Potassium 4.6 mmol/L (3.3-5.1)
[2025-09-20 09:31] VITALS: BP 137/57; PULSE 71; RESP 18; TEMP 36.8; O2SAT 95
[2025-09-20] MEDS: Heparin Injection (Vial) 5,000 UNIT/ML VIAL 5000 UNIT SC ×2 (09:33→22:08)
[2025-09-20 16:48] VITALS: BP 145/65; PULSE 70; RESP 16; TEMP 36.5; O2SAT 95
--- NOTE | 2025-09-20 18:47 | PN.HOSP_ITS ---
Reason for Visit Chief Complaint: weakness Subjective Subjective Patient was seen and examined today, her creatinine continues to improve, I decided to lower her IV rate to 100 mL/h and recheck labs in the morning. Patient's hemoglobin today was 7.6, patient's serum iron was 29 and her ferritin was 344, I feel that she probably has anemia of chronic disease. Objective Data Objective Data Vital Signs: Vital Signs Temp Pulse Resp BP Pulse Ox O2 Del Method 97.7 F L 70 16 145/65 H 95 Room Air 09/20/25 16:48 09/20/25 16:48 09/20/25 16:48 09/20/25 16:48 09/20/25 16:48 09/20/25 16:48 Oxygen Delivery Method Room Air Weight: 103.555 kg Body Mass Index (BMI) 41.7 Intake & Output: Intake and Output for Last 24 Hours 09/18/25 09/19/25 09/20/25 23:59 23:59 23:59 Intake Total 3495 / 3495 5150 / 5150 3250.0 / 3250.0 Balance 3495 / 3495 5150 / 5150 3250.0 / 3250.0 Lab / Micro Data 09/20/25 06:08 09/20/25 06:08 Labs: Laboratory Results - last 24 hr 09/19/25 21:06: POC Glucose 118 H 09/20/25 05:58: POC Glucose 76 09/20/25 06:08: WBC 9.7, RBC 2.72 L, Hgb 7.6 L, Hct 24.0 L, MCV 88.2, MCH 27.9, MCHC 31.7 L, RDW Std Deviation 53.6 H, RDW Coeff of [place] 16.5 H, Plt Count 219, MPV 9.2, Immature Gran % (Auto) 1.200 H, Neut % (Auto) 68.4, Lymph % (Auto) 7.5 L, [place] % (Auto) 17.1 H, Eos % (Auto) 5.2 H, Baso % (Auto) 0.6, Absolute Neuts (auto) 6.6, Absolute Lymphs (auto) 0.73 L, Nucleated RBC % 0, Differential Comment SCANNED, Sodium 138, Potassium 4.6, Chloride 114 H, Carbon Dioxide 11.8 L, Anion Gap 12, BUN 48 H, Creatinine 7.06 H, Estim Creat Clear Calc 7.29 L*, E st GFR (MDRD) Non-Af 5 L, BUN/Creatinine Ratio 6.8 L, Glucose 78, Calcium 7.5 L 09/20/25 11:55: POC Glucose 99 09/20/25 16:45: POC Glucose 105 Micro: Microbiology 09/18/25 12:55 Stool Enteric Bacteriology - Final 09/18/25 12:55 Stool C. difficile GDH Antigen & Toxins - Final 09/18/25 12:55 Stool Clostridioides difficile (PCR) - Final Physical Exam Narrative alert and oriented x3 General Appearance: cooperative, appropriate HEENT normocephalic and head/scalp atraumatic Eyes PERRL, EOMI Neck no lymphadenopathy, thyroid is nonenlarged Resp normal respiratory effort and clear to auscultation bilaterally Cardio regular rate, regular rhythm and no murmurs GI normal to inspection, nondistended, normoactive bowel sounds, soft to palpation and non-tender Extremity Extremity Narrative: BL 2+ pitting edema Neuro oriented x3 Sensorium / Orientation: awake Speech: speech normal Psych: Patient is alert and appropriate, she does not appear anxious or depressed Assessment & Plan Assessment/Plan (1) Acute kidney injury superimposed on chronic kidney disease: PLAN: 1. OSVALDO on CKD III - suspect 2/2 volume depletion 2/2 diarrhea. Patient is being seen by nephrology, IV fluids will continue at 100 cc/h, patient's creatinine today was 7.06 with a BUN of 48. Labs will be rechecked tomorrow 2. C diff colitis -patient's C. difficile toxin was negative, PCR for the organism was positive, I have elected to treat the patient for 10 days-it is very hard to determine whether the patient is having diarrhea from C. difficile or her usual chronic diarrhea as the patient is a poor informant. 3. Chronic normocytic anemia -hemoglobin was 7.9 today, CBC will be rechecked tomorrow 4. Debility - complicated by #1. PTOT evals ordered. Usually ambulates with a walker. Patient will need placement in a skilled facility, pre-CERT is pending 5. DMt2 - hold orals, continue lantus, add SSI, ACHS glucometry, carb controlled diet. 6. GERD - on PPI 7. HTN - lavonne held. 8. Anx/dep - on celexa 9. Chronic Lymphedema -no treatment indicated at this time DVT ppx: heparin Total clinical time spent by myself addressing the patient's medical issues, reviewing all of her data, and collaborating with patient's care team: 35 minutes Charges/Coding Visit Charges Inpatient E&M: 94206 Subs Hosp L2
[2025-09-20] MEDS: Lactated Ringers 1,000 ML 100 ML IV (20:49)
--- NOTE | 2025-09-20 21:07 | PCM.PN.REN ---
Subjective Subjective feels ok still having loose stools Objective Data Objective Data Vital Signs: Vital Signs Temp Pulse Resp BP Pulse Ox O2 Del Method 97.7 F L 70 16 145/65 H 95 Room Air 09/20/25 16:48 09/20/25 16:48 09/20/25 16:48 09/20/25 16:48 09/20/25 16:48 09/20/25 16:48 Oxygen Delivery Method Room Air Weight: 103.555 kg Body Mass Index (BMI) 41.7 Intake & Output: Intake and Output for Last 24 Hours 09/18/25 09/19/25 09/20/25 23:59 23:59 23:59 Intake Total 3495 / 3495 5150 / 5150 3587.5 / 3587.5 Balance 3495 / 3495 5150 / 5150 3587.5 / 3587.5 Lab / Micro Data Attestation: I reviewed the patient's lab results. 09/20/25 06:08 09/20/25 06:08 Labs: Laboratory Results - last 24 hr 09/19/25 21:06: POC Glucose 118 H 09/20/25 05:58: POC Glucose 76 09/20/25 06:08: WBC 9.7, RBC 2.72 L, Hgb 7.6 L, Hct 24.0 L, MCV 88.2, MCH 27.9, MCHC 31.7 L, RDW Std Deviation 53.6 H, RDW Coeff of [place] 16.5 H, Plt Count 219, MPV 9.2, Immature Gran % (Auto) 1.200 H, Neut % (Auto) 68.4, Lymph % (Auto) 7.5 L, [place] % (Auto) 17.1 H, Eos % (Auto) 5.2 H, Baso % (Auto) 0.6, Absolute Neuts (auto) 6.6, Absolute Lymphs (auto) 0.73 L, Nucleated RBC % 0, Differential Comment SCANNED, Sodium 138, Potassium 4.6, Chloride 114 H, Carbon Dioxide 11.8 L, Anion Gap 12, BUN 48 H, Creatinine 7.06 H, Estim Creat Clear Calc 7.29 L*, Est GFR (MDRD) Non-Af 5 L, BUN/Creatinine Ratio 6.8 L, Glucose 78, Calcium 7.5 L 09/20/25 11:55: POC Glucose 99 09/20/25 16:45: POC Glucose 105 Micro: Microbiology 09/18/25 12:55 Stool Enteric Bacteriology - Final 09/18/25 12:55 Stool C. difficile GDH Antigen & Toxins - Final 09/18/25 12:55 Stool Clostridioides difficile (PCR) - Final Physical Exam Narrative Alert awake oriented x 3 no obvious distress no pallor no icterus no JVD s1s2 no murmurs lungs clear abdomen soft no organomegaly Assessment & Plan Assessment/Plan (1) Acute kidney injury superimposed on chronic kidney disease: PLAN: CKD stage IV at baseline, creatinine fluctuates between [address] abdomen reviewed, there is a small 5 mm kidney stone. This is small enough to pass on its own. She is asymptomatic. History of diarrhea for at least 1 week. History of chronic colitis. Acute renal failure is more likely volume depletion mediated. -renal function slightly improved -remains on ivf -bmp in am -no need for HD Acidosis. Gap and nongap. -change LR to 1/2 NS with 75mEQ of NaHCO3 at 100cc/hr
[2025-09-20] MEDS: Sodium Bicarbonate 75 MEQ in 0.45% Normal Saline 1,000 ML 100 MEQ IV (21:57)
[2025-09-20] MEDS: Insulin Glargine-YFGN 100 UNIT/ML Pen 12 UNIT SC (22:09)
[2025-09-20 22:20] VITALS: BP 142/68; PULSE 77; RESP 18; TEMP 36.6; O2SAT 95
[2025-09-21] MEDS: Vancomycin 125 MG/5 ML Susp PO.SYRINGE PO ×5 (00:44→23:14)
[2025-09-21 04:55] LABS: Hematocrit 23.5 % (37-47); Hemoglobin 7.4 g/dL (12.0-15.0); Immature Granulocytes Count 0.130 X10^3/uL (0.0-0.0); Mean Corp Hgb Conc 31.5 g/dL (32-36); Mean Corpuscular Volume 88.3 fL (81-99); Mean Platelet Vol. 9.2 fl (6.2-12.0); NRBC Flagged by Analyzer 0 % (0-5); Platelet Count 232 K/mm3 (150-450); RBC Distribution Width CV 16.5 % (11.6-14.6); RBC Distribution Width SD 53.2 fl (35.1-43.9); Red Blood Count 2.66 M/mm3 (4.2-5.4); White Blood Count 8.3 K/mm3 (4.4-11.0)
[2025-09-21 05:15] LABS: Anion Gap 12 (5-15); BUN 46 mg/dL (4-19); BUN/Creat Ratio 6.8 RATIO (10-20); Calcium,Total 7.5 mg/dL (7.6-11.0); Carbon Dioxide 13.3 mmol/L (21.0-32.0); Chloride 114 mmol/L (98-108); Estimated Creatinine Clearance 7.64 ml/min (50-250); Glucose 79 mg/dL (70-99); Potassium 4.5 mmol/L (3.3-5.1)
[2025-09-21 06:01] VITALS: BP 137/58; PULSE 68; RESP 18; TEMP 36.6; O2SAT 97
[2025-09-21] MEDS: Ammonium Lactate 225 gm Bottle 1 APPLIC TOPICAL ×3 (06:06→23:14)
[2025-09-21] MEDS: Heparin Injection (Vial) 5,000 UNIT/ML VIAL 5000 UNIT SC ×2 (08:24→23:13)
[2025-09-21] MEDS: Sodium Bicarbonate 75 MEQ in 0.45% Normal Saline 1,000 ML 100 MEQ IV ×2 (08:28→19:53)
[2025-09-21 08:30] VITALS: BP 142/48; PULSE 71; RESP 17; TEMP 36.7; O2SAT 97
--- NOTE | 2025-09-21 13:30 | PCM.PN.HOSP ---
Reason for Visit Chief Complaint: weakness Subjective Subjective Patient was seen and examined today, her creatinine is improved somewhat at 6.74, hemoglobin was 7.4. Labs will be rechecked tomorrow Objective Data Objective Data Vital Signs: Vital Signs Temp Pulse Resp BP Pulse Ox O2 Del Method 98.1 F 71 17 142/48 H 97 Room Air 09/21/25 08:30 09/21/25 08:30 09/21/25 08:30 09/21/25 08:30 09/21/25 08:30 09/21/25 08:30 Oxygen Delivery Method Room Air Weight: 103.555 kg Body Mass Index (BMI) 41.7 Intake & Output: Intake and Output for Last 24 Hours 09/19/25 09/20/25 09/21/25 23:59 23:59 23:59 Intake Total 5150 / 5150 3757.5 / 3957.5 1751.67 / 1751.67 Balance 5150 / 5150 3757.5 / 3957.5 1751.67 / 1751.67 Lab / Micro Data 09/21/25 04:08 09/21/25 04:08 Labs: Laboratory Results - last 24 hr 09/20/25 16:45: POC Glucose 105 09/20/25 22:08: POC Glucose 120 H 09/21/25 04:08: WBC 8.3, RBC 2.66 L, Hgb 7.4 L, Hct 23.5 L, MCV 88.3, MCH 27.8, MCHC 31.5 L, RDW Std Deviation 53.2 H, RDW Coeff of [place] 16.5 H, Plt Count 232, MPV 9.2, Immature Gran % (Auto) 1.600 H, Neut % (Auto) 68.0, Lymph % (Auto) 8.0 L, [place] % (Auto) 15.8 H, Eos % (Auto) 6.0 H, Baso % (Auto) 0.6, Absolute Neuts (auto) 5.7, Absolute Lymphs (auto) 0.67 L, Nucleated RBC % 0, Sodium 138, Potassium 4.5, Chloride 114 H, Carbon Dioxide 13.3 L, Anion Gap 12, BUN 46 H, Creatinine 6.74 H, Estim Creat Clear Calc 7.64 L*, Est GFR (MDRD) Non-Af 6 L, BUN/Creatinine Ratio 6.8 L, Glucose 79, Calcium 7.5 L 09/21/25 05:54: POC Glucose 53 L 09/21/25 06:51: POC Glucose 88 09/21/25 11:37: POC Glucose 82 Micro: Microbiology 09/18/25 12:55 Stool Enteric Bacteriology - Final 09/18/25 12:55 Stool C. difficile GDH Antigen & Toxins - Final 09/18/25 12:55 Stool Clostridioides difficile (PCR) - Final Physical Exam Narrative alert and oriented x3 General Appearance: cooperative, appropriate HEENT normocephalic and head/scalp atraumatic Eyes PERRL, EOMI Neck no lymphadenopathy, thyroid is nonenlarged Resp normal respiratory effort and clear to auscultation bilaterally Cardio regular rate, regular rhythm and no murmurs GI normal to inspection, nondistended, normoactive bowel sounds, soft to palpation and non-tender Extremity Extremity Narrative: BL 2+ pitting edema Neuro oriented x3 Sensorium / Orientation: awake Speech: speech normal Psych: Patient is alert and appropriate, she does not appear anxious or depressed Assessment & Plan Assessment/Plan (1) Acute kidney injury superimposed on chronic kidney disease: PLAN: 1. OSVALDO on CKD III - suspect 2/2 volume depletion 2/2 diarrhea. Patient is being seen by nephrology, IV fluids will continue at 100 cc/h, patient's creatinine today was improved. Labs will be rechecked tomorrow 2. C diff colitis -patient's C. difficile toxin was negative, PCR for the organism was positive, I have elected to treat the patient for 10 days-it is very hard to determine whether the patient is having diarrhea from C. difficile or her usual chronic diarrhea as the patient is a poor informant. Stop date for the antibiotics should be 09/28/2025. 3. Chronic normocytic anemia -hemoglobin was 7.9 today, CBC will be rechecked tomorrow 4. Debility - complicated by #1. PTOT evals ordered. Usually ambulates with a walker. Patient will need placement in a skilled facility, pre-CERT is pending 5. DMt2 - hold orals, continue lantus, add SSI, ACHS glucometry, carb controlled diet. 6. GERD - on PPI 7. HTN - lavonne held. 8. Anx/dep - on celexa 9. Chronic Lymphedema -no treatment indicated at this time DVT ppx: heparin Total clinical time spent by myself addressing the patient's medical issues, reviewing all of her data, and collaborating with patient's care team: 35 minutes Charges/Coding Visit Charges Inpatient E&M: 56224 Subs Hosp L2
[2025-09-21 14:30] VITALS: BP 144/50; PULSE 72; RESP 18; TEMP 36.5; O2SAT 94
[2025-09-21 23:39] VITALS: BP 159/52; PULSE 80; RESP 16; TEMP 36.7; O2SAT 97
[2025-09-22 04:55] LABS: Hematocrit 23.5 % (37-47); Hemoglobin 7.5 g/dL (12.0-15.0); Immature Granulocytes Count 0.140 X10^3/uL (0.0-0.0); Mean Corp Hgb Conc 31.9 g/dL (32-36); Mean Corpuscular Volume 87.7 fL (81-99); Mean Platelet Vol. 9.2 fl (6.2-12.0); NRBC Flagged by Analyzer 0 % (0-5); POSITIVE DIFFERENTIAL YES; Platelet Count 236 K/mm3 (150-450); RBC Distribution Width CV 16.4 % (11.6-14.6); RBC Distribution Width SD 52.8 fl (35.1-43.9); Red Blood Count 2.68 M/mm3 (4.2-5.4); White Blood Count 10.0 K/mm3 (4.4-11.0)
[2025-09-22 05:02] LABS: Differential Indicated SCAN CRITERIA MET
[2025-09-22] MEDS: Vancomycin 125 MG/5 ML Susp PO.SYRINGE PO ×3 (05:28→17:44)
[2025-09-22] MEDS: Sodium Bicarbonate 75 MEQ in 0.45% Normal Saline 1,000 ML 100 MEQ IV (05:29)
[2025-09-22] MEDS: Ammonium Lactate 225 gm Bottle 1 APPLIC TOPICAL ×3 (05:29→22:28)
[2025-09-22 05:45] VITALS: BP 147/69; PULSE 70; RESP 16; TEMP 36.7; O2SAT 94
[2025-09-22 05:51] LABS: Anion Gap 12 (5-15); BUN 44 mg/dL (4-19); BUN/Creat Ratio 7.6 RATIO (10-20); Calcium,Total 7.5 mg/dL (7.6-11.0); Carbon Dioxide 15.5 mmol/L (21.0-32.0); Chloride 111 mmol/L (98-108); Estimated Creatinine Clearance 8.81 ml/min (50-250); Glucose 129 mg/dL (70-99); Potassium 4.5 mmol/L (3.3-5.1)
[2025-09-22 06:27] LABS: Differential Comment SCANNED
--- NOTE | 2025-09-22 08:26 | PCM.PN.HOSP ---
Subjective Subjective Continues to have frequent small-volume diarrhea Objective Data Objective Data Vital Signs: Vital Signs Temp Pulse Resp BP Pulse Ox O2 Del Method 98.1 F 70 16 147/69 H 94 Room Air 09/22/25 05:45 09/22/25 05:45 09/22/25 05:45 09/22/25 05:45 09/22/25 05:45 09/22/25 05:45 Oxygen Delivery Method Room Air Weight: 228 lb 4.8 oz Body Mass Index (BMI) 41.7 Intake & Output: Intake and Output for Last 24 Hours 09/21/25 09/22/25 09/23/25 03:59 03:59 03:59 Intake Total 3757.5 / 3757.5 3208.67 / 3208.67 960 / 960 Balance 3757.5 / 3757.5 3208.67 / 3208.67 960 / 960 Lab / Micro Data 09/22/25 04:36 09/22/25 04:36 Labs: Laboratory Results - last 24 hr 09/21/25 11:37: POC Glucose 82 09/21/25 17:28: POC Glucose 111 H 09/21/25 23:08: POC Glucose 114 H 09/22/25 04:36: WBC 10.0, RBC 2.68 L, Hgb 7.5 L, Hct 23.5 L, MCV 87.7, MCH 28.0, MCHC 31.9 L, RDW Std Deviation 52.8 H, RDW Coeff of [place] 16.4 H, Plt Count 236, MPV 9.2, Immature Gran % (Auto) 1.400 H, Neut % (Auto) 70.2 H, Lymph % (Auto) 6.2 L, [place] % (Auto) 16.0 H, Eos % (Auto) 5.7 H, Baso % (Auto) 0.5, Absolute Neuts (auto) 7.1, Absolute Lymphs (auto) 0.62 L, Nucleated RBC % 0, Differential Comment SCANNED, Sodium 139, Potassium 4.5, Chloride 111 H, Carbon Dioxide 15.5 L, Anion Gap 12, BUN 44 H, Creatinine 5.84 H, Estim Creat Clear Calc 8.81 L*, Est GFR (MDRD) Non-Af 7 L, BUN/Creatinine Ratio 7.6 L, Glucose 129 H, Calcium 7.5 L 09/22/25 05:32: POC Glucose 102 Micro: Microbiology 09/18/25 12:55 Stool Enteric Bacteriology - Final 09/18/25 12:55 Stool C. difficile GDH Antigen & Toxins - Final 09/18/25 12:55 Stool Clostridioides difficile (PCR) - Final Physical Exam Narrative General: Alert, Oriented x3, Cooperative, No apparent distress HEENT: Atraumatic, PERRLA, EOMI, Normocephalic Oral: Moist Mucosa Neck: Supple, No JVD Lungs: Diminished, Normal air movement, No rhonchi, No wheeze, No rales Cardiovascular: Regular rate, Regular Rhythm, Normal S1, Normal S2, No murmurs Abdomen: Soft, Non Tender, Non-Distended, No Hepato-splenomegaly Extremities: Edema, Capillary Refill Less than 3 Seconds Skin: No rashes, No breakdown Musculoskeletal: No Tenderness to Palpation of Joints or Extremities Neurological: No focal neurological deficits, moves all extremities Psych/Mental Status: Normal Affect, Appropriate Assessment & Plan Assessment/Plan (1) Acute kidney injury superimposed on chronic kidney disease: PLAN: 1. C. difficile colitis with OSVALDO on CKD 4 ? Appreciate nephrology's assistance ? Continue with IV fluids for GI losses ? Continue with p.o. vancomycin 2. Essential HTN ? Can hold her DWIGHT inhibitor given her OSVALDO on her CKD 4 ? Continue with her other blood pressure medications ? Will monitor and make adjustments as necessary 3. DM2 ? Hold her oral medications ? Continue with insulin ? Accu-Cheks ? Will monitor and make adjustments as necessary 4. GERD ? Continue with PPI ? Stable 5. Anxiety/depression ? Stable ? Continue with Celexa DVT: Heparin Charges/Coding Visit Charges Inpatient E&M: 77819 Subs Hosp L2
--- NOTE | 2025-09-22 08:30 | CASEMGMT ---
Discharge Planning Updates sent via [facility] to [facility]. Kortney Roberto DC Planning Asst.
[2025-09-22 08:43] VITALS: BP 143/56; PULSE 71; RESP 17; TEMP 36.2; O2SAT 97
[2025-09-22] MEDS: Heparin Injection (Vial) 5,000 UNIT/ML VIAL 5000 UNIT SC ×2 (08:46→22:31)
[2025-09-22] MEDS: Insulin Glargine-YFGN 100 UNIT/ML Pen 6 UNIT SC ×2 (08:47→22:32)
--- NOTE | 2025-09-22 11:15 | PN.RENAL_ITS ---
Subjective Subjective No new complaints Objective Data Objective Data Vital Signs: Vital Signs Temp Pulse Resp BP Pulse Ox O2 Del Method 97.1 F L 71 17 143/56 H 97 Room Air 09/22/25 08:43 09/22/25 08:43 09/22/25 08:43 09/22/25 08:43 09/22/25 08:43 09/22/25 08:43 Oxygen Delivery Method Room Air Weight: 103.555 kg Body Mass Index (BMI) 41.7 Intake & Output: Intake and Output for Last 24 Hours 09/20/25 09/21/25 09/22/25 23:59 23:59 23:59 Intake Total 3757.5 / 3957.5 3408.67 / 3408.67 960 / 960 Balance 3757.5 / 3957.5 3408.67 / 3408.67 960 / 960 Lab / Micro Data 09/22/25 04:36 09/22/25 04:36 Labs: Laboratory Results - last 24 hr 09/21/25 11:37: POC Glucose 82 09/21/25 17:28: POC Glucose 111 H 09/21/25 23:08: POC Glucose 114 H 09/22/25 04:36: WBC 10.0, RBC 2.68 L, Hgb 7.5 L, Hct 23.5 L, MCV 87.7, MCH 28.0, MCHC 31.9 L, RDW Std Deviation 52.8 H, RDW Coeff of [place] 16.4 H, Plt Count 236, MPV 9.2, Immature Gran % (Auto) 1.400 H, Neut % (Auto) 70.2 H, Lymph % (Auto) 6.2 L, [place] % (Auto) 16.0 H, Eos % (Auto) 5.7 H, Baso % (Auto) 0.5, Absolute Neuts (auto) 7.1, Absolute Lymphs (auto) 0.62 L, Nucleated RBC % 0, Differential Comment SCANNED, Sodium 139, Potassium 4.5, Chloride 111 H, Carbon Dioxide 15.5 L, Anion Gap 12, BUN 44 H, Creatinine 5.84 H, Estim Creat Clear Calc 8.81 L*, E st GFR (MDRD) Non-Af 7 L, BUN/Creatinine Ratio 7.6 L, Glucose 129 H, Calcium 7.5 L 09/22/25 05:32: POC Glucose 102 Micro: Microbiology 09/18/25 12:55 Stool Enteric Bacteriology - Final 09/18/25 12:55 Stool C. difficile GDH Antigen & Toxins - Final 09/18/25 12:55 Stool Clostridioides difficile (PCR) - Final Physical Exam Narrative Alert awake oriented x 3 no obvious distress no pallor no icterus no JVD s1s2 no murmurs lungs clear abdomen soft no organomegaly Assessment & Plan Assessment/Plan (1) Acute kidney injury superimposed on chronic kidney disease: PLAN: CKD stage IV at baseline, creatinine fluctuates between [address] abdomen reviewed, there is a small 5 mm kidney stone. This is small enough to pass on its own. She is asymptomatic. History of diarrhea for at least 1 week. History of chronic colitis. Acute renal failure is more likely volume depletion mediated. Renal function continues to improve Bicarbonate is better Fluids as ordered
[2025-09-22] MEDS: 0.9% Saline Lock 10 ML Syringe IV (11:45)
[2025-09-22] MEDS: Sodium Bicarbonate 150 MEQ in Dextrose 5%-Water (1000mL Bag) 1,000 ML 100 MEQ IV ×2 (11:45→22:38)
[2025-09-22 14:47] VITALS: BP 142/69; PULSE 76; RESP 16; TEMP 36.7; O2SAT 95
--- NOTE | 2025-09-22 16:15 | CASEMGMT ---
[facility] has obtained auth to admit. SW updated. Kortney Roberto DC Planning Asst
[2025-09-22 22:25] VITALS: BP 162/60; PULSE 79; RESP 18; TEMP 36.6; O2SAT 95
[2025-09-23] MEDS: Vancomycin 125 MG/5 ML Susp PO.SYRINGE PO ×3 (00:59→11:32)
[2025-09-23 03:06] VITALS: BP 170/70; PULSE 77; RESP 20; TEMP 36.6; O2SAT 97
[2025-09-23 03:41] VITALS: BP 152/72
[2025-09-23] MEDS: Ammonium Lactate 225 gm Bottle 1 APPLIC TOPICAL ×2 (05:56→14:15)
[2025-09-23 07:11] LABS: Hematocrit 21.8 % (37-47); Hemoglobin 7.1 g/dL (12.0-15.0); Immature Granulocytes Count 0.130 X10^3/uL (0.0-0.0); Mean Corp Hgb Conc 32.6 g/dL (32-36); Mean Corpuscular Volume 87.9 fL (81-99); Mean Platelet Vol. 9.4 fl (6.2-12.0); NRBC Flagged by Analyzer 0 % (0-5); POSITIVE DIFFERENTIAL YES; Platelet Count 224 K/mm3 (150-450); RBC Distribution Width CV 16.3 % (11.6-14.6); RBC Distribution Width SD 52.5 fl (35.1-43.9); Red Blood Count 2.48 M/mm3 (4.2-5.4); White Blood Count 9.6 K/mm3 (4.4-11.0)
[2025-09-23 07:18] LABS: Differential Indicated SCAN CRITERIA MET
[2025-09-23 08:02] LABS: Anion Gap 12 (5-15); BUN 42 mg/dL (4-19); BUN/Creat Ratio 7.5 RATIO (10-20); Calcium,Total 7.1 mg/dL (7.6-11.0); Carbon Dioxide 19.1 mmol/L (21.0-32.0); Chloride 107 mmol/L (98-108); Estimated Creatinine Clearance 9.24 ml/min (50-250); Glucose 106 mg/dL (70-99); Potassium 4.1 mmol/L (3.3-5.1)
[2025-09-23 08:37] VITALS: BP 150/53; PULSE 69; RESP 16; TEMP 36.6; O2SAT 95
[2025-09-23] MEDS: Insulin Glargine-YFGN 100 UNIT/ML Pen 6 UNIT SC (08:41)
[2025-09-23] MEDS: Heparin Injection (Vial) 5,000 UNIT/ML VIAL 5000 UNIT SC (08:41)
[2025-09-23] MEDS: Sodium Bicarbonate 150 MEQ in Dextrose 5%-Water (1000mL Bag) 1,000 ML 100 MEQ IV (10:47)
[2025-09-23 11:23] LABS: Hematocrit 23.3 % (37-47); Hemoglobin 7.5 g/dL (12.0-15.0)
--- NOTE | 2025-09-23 11:30 | PCM.TXEXTCAR ---
Diet Diet Order/Speech Therapy: INPATIENT Hospital Diet / Speech Therapy Order(s) 09/19/25 11:01 Diet: Cardiac: Calorie-Controlled Diet Comments: please send yogurt each meal How many daily calories?: 1600 calorie Routine Orders/Code Status Routine Lab Work: CBC and BMP Code Status: Full Code DC O2, CPAP, BIPAP needs Home O2 Discharge instructions: No Therapies Physical Therapy: Eval and Treat Occupational Therapy: Eval and Treat Problem/Diagnosis (1) Acute kidney injury superimposed on chronic kidney disease: Status: Chronic Code(s): N17.9 - Acute kidney failure, unspecified; N18.9 - Chronic kidney disease, unspecified Plan: 1. C. difficile colitis with OSVALDO on CKD 4 ? Appreciate nephrology's assistance ? Continue with IV fluids for GI losses ? Continue with p.o. vancomycin 2. Essential HTN ? Can hold her DWIGHT inhibitor given her OSVALDO on her CKD 4 ? Continue with her other blood pressure medications ? Will monitor and make adjustments as necessary 3. DM2 ? Hold her oral medications ? Continue with insulin ? Accu-Cheks ? Will monitor and make adjustments as necessary 4. GERD ? Continue with PPI ? Stable 5. Anxiety/depression ? Stable ? Continue with Celexa DVT: Heparin Allergies/Procedures Done in Hospital Allergies chlorhexidine Allergy (Verified 09/18/25 10:18) Unknown Iodinated Contrast Media (CONTRASTS) Allergy (Verified 09/18/25 10:18) Other iodine Allergy (Verified 09/18/25 10:18) Unknown latex Allergy (Verified 09/18/25 10:18) Rash vancomycin Adverse Reaction (Intermediate, Verified 09/18/25 13:09) Other Patient states she had hallucinations while taking Type of Care/Length of Stay Estimated LOS: Convalescent Care Less Than 30 days Type of Care Needed: Skilled Rehab Potential: Good Prognosis: Good Additional Orders/Day of Discharge Day of Discharge: 09/23/25 Dietary and Speech Recommendations Dietitian Recommendations/Changes: Will change diet to 1600 [address]izabeth Cardiac to help manage medical conditions Will continue to follow and monitor for changes in pt nutritional status and make additional rec / provide diet education as indicated. Discharge Plan Admission Admit Date/Time: 09/18/25 12:42 Attending Provider: Glen Bonilla Primary Care Provider: Elena Mims Consulting Providers: Chelsie Robertson; Valentino Graham; Glen Bonilla; [place] Instructions Additional Instructions / Restrictions: Monitor hemoglobins at SNF, she may need a transfusion. She does have a history of a duodenal ulcer as well as diverticulosis from colonoscopy and EGD in January 2024. Discharge Orders/Prescriptions Prescriptions: New vancomycin [Firvanq] 25 mg/mL Recon Soln 125 mg PO Q6 10 Days Qty: 200 0RF Continued carvedilol 12.5 mg tablet 6.25 mg PO BIDCM Januvia 50 mg tablet 50 mg PO QDAY folic acid 1 MG tablet 1 mg PO DAILY@0800 calcium carbonate-vitamin D3 [Caltrate with Vitamin D3] 1 TAB tablet 1 tab PO DAILY citalopram 20 mg tablet 20 mg PO QHS ferrous sulfate [FeroSul] 325 mg (65 mg iron) tablet 325 mg PO DAILY amlodipine 5 mg Tablet 5 mg PO DAILY 30 Days Qty: 30 0RF insulin glargine [Lantus Solostar U-100 Insulin] 100 unit/mL (3 mL) insulin pen 12 unit subcut BID aspirin 81 mg capsule 81 mg PO DAILY pantoprazole 40 mg Tablet,Delayed Release (Dr/Ec) 40 mg PO DAILY acetaminophen 325 mg Tablet 650 mg PO Q6H PRN PRN (Reason: Pain 1-10 Or Fever >100.7) Qty: 0 0RF pentoxifylline 400 mg tablet extended release 400 mg PO DAILY vitamin E 268 mg (400 unit) capsule 268 mg PO DAILY metoprolol succinate 50 mg tablet extended release 24 hr 100 mg PO DAILY potassium chloride 20 mEq tablet,ER particles/crystals 20 meq PO DAILY lisinopril 10 mg tablet 10 mg PO DAILY budesonide 3 mg capsule,delayed,extend.release 2 mg PO QAM alendronate 70 mg tablet 70 mg PO QWEEK Qty: 14 3RF Referrals / Follow Up: Elena Mims DO [Primary Care Provider, Internal Medicine] Disposition Disposition (needs filled in before D/C Order can be placed): Nursing Home Facility
--- NOTE | 2025-09-23 11:58 | PN.RENAL_ITS ---
Subjective Subjective no new complaints stool is formed Objective Data Objective Data Vital Signs: Vital Signs Temp Pulse Resp BP Pulse Ox O2 Del Method 97.8 F 69 16 150/53 H 95 Room Air 09/23/25 08:37 09/23/25 08:37 09/23/25 08:37 09/23/25 08:37 09/23/25 08:37 09/23/25 08:37 Oxygen Delivery Method Room Air Weight: 103.555 kg Body Mass Index (BMI) 41.7 Intake & Output: Intake and Output for Last 24 Hours 09/21/25 09/22/25 09/23/25 23:59 23:59 23:59 Intake Total 3408.67 / 3408.67 2666.75 / 2666.75 1127.17 / 1127.17 Balance 3408.67 / 3408.67 2666.75 / 2666.75 1127.17 / 1127.17 Lab / Micro Data 09/23/25 11:07 09/23/25 06:59 Labs: Laboratory Results - last 24 hr 09/22/25 16:36: POC Glucose 145 H 09/22/25 22:24: POC Glucose 113 H 09/23/25 05:54: POC Glucose 88 09/23/25 06:59: WBC 9.6, RBC 2.48 L, Hgb 7.1 L, Hct 21.8 L, MCV 87.9, MCH 28.6, MCHC 32.6, RDW Std Deviation 52.5 H, RDW Coeff of [place] 16.3 H, Plt Count 224, MPV 9.4, Immature Gran % (Auto) 1.400 H, Neut % (Auto) 67.4, Lymph % (Auto) 6.5 L, [place] % (Auto) 18.1 H, Eos % (Auto) 6.0 H, Baso % (Auto) 0.6, Absolute Neuts (auto) 6.5, Absolute Lymphs (auto) 0.62 L, Nucleated RBC % 0, Sodium 138, Potassium 4.1, Chloride 107, Carbon Dioxide 19.1 L, Anion Gap 12, BUN 42 H, C reatinine 5.57 H, Estim Creat Clear Calc 9.24 L*, Est GFR (MDRD) Non-Af 7 L, B UN/Creatinine Ratio 7.5 L, Glucose 106 H, Calcium 7.1 L 09/23/25 11:07: Hgb 7.5 L, Hct 23.3 L 09/23/25 11:31: POC Glucose 129 H Micro: Microbiology 09/18/25 12:55 Stool Enteric Bacteriology - Final 09/18/25 12:55 Stool C. difficile GDH Antigen & Toxins - Final 09/18/25 12:55 Stool Clostridioides difficile (PCR) - Final Physical Exam Narrative Alert awake oriented x 3 no obvious distress no pallor no icterus no JVD s1s2 no murmurs lungs clear abdomen soft no organomegaly Assessment & Plan Assessment/Plan (1) Acute kidney injury superimposed on chronic kidney disease: PLAN: CKD stage IV at baseline, creatinine fluctuates between [address] abdomen reviewed, there is a small 5 mm kidney stone. This is small enough to pass on its own. She is asymptomatic. History of diarrhea for at least 1 week. History of chronic colitis. Acute renal failure is more likely volume depletion mediated. Cr better bicarbonate better dc plans as per primary
--- NOTE | 2025-09-23 12:15 | CASEMGMT ---
Discharge Planning Discharge orders, med list, and transport time sent via [facility] to [facility]. Physicians will transport pt by wheelchair at 3p. Nursing, SW, pt, and her niece/HC POA (Letha) updated. Kortney Roberto DC Planning Asst
--- NOTE | 2025-09-23 12:28 | CASEMGMT ---
Social Work Precert has been obtained.? Physician updated and pt is ready for discharge today.? 7000 convalescent form completed in [facility]. SW met with pt and they are agreeable to discharge plan as stated above.? DCA and bedside nurse notified of discharge. DCA to complete all final arrangements and notifications. Disposition:[place], skilled level of care ANJELICA Crooks
[2025-09-23 14:13] VITALS: BP 134/68; PULSE 74; RESP 16; TEMP 36.7; O2SAT 95
--- NOTE | 2025-09-23 14:40 | DS.PCM_ITS ---
Providers Date of Admission: 09/18/25 Primary Care Physician: Dr. Elena Mims DO Consultations 09/18/25 14:06 Consult: Nephrology Routine Consulting Provider: Chelsie Robertson Reason for Consult: Acute kidney injury EMERGENT Consult: No MD Notified: Yes Date Notified: 09/18/25 Time Notified: 12:47 Method of Notification: Verbal Reason For Visit: ACUTE KIDNEY INJURY Diagnosis Discharge Diagnosis (1) Acute kidney injury superimposed on chronic kidney disease: Status: Chronic Code(s): N17.9 - Acute kidney failure, unspecified; N18.9 - Chronic kidney disease, unspecified Medications at Discharge Home Medications folic acid 1 mg tablet 1 mg PO DAILY@0800 SUPPLEMENT 01/21/17 calcium 600 mg (as carbonate)-vitamin D3 20 mcg (800 unit) tablet (Caltrate with Vitamin D3) 1 tab PO DAILY SUPPLEMENT 03/05/19 citalopram 20 mg tablet 20 mg PO QHS mental health 01/22/22 pentoxifylline 400 mg tablet,extended release 400 mg PO DAILY PAD 02/15/24 vitamin E 268 mg (400 unit) capsule 268 mg PO DAILY Supplement 02/15/24 ferrous sulfate 325 mg (65 mg iron) tablet (FeroSul) 325 mg PO DAILY Supplement 06/05/24 amlodipine 5 mg tablet 5 mg PO DAILY 30 days #30 tabs 01/11/25 carvedilol 12.5 mg tablet 6.25 mg PO BIDCM 04/02/25 sitagliptin phosphate 50 mg tablet (Januvia) 50 mg PO QDAY 04/02/25 aspirin 81 mg capsule 81 mg PO DAILY 05/04/25 insulin glargine 100 unit/mL (3 mL) subcutaneous pen (Lantus Solostar U-100 Insulin) 12 unit subcut BID 05/04/25 pantoprazole 40 mg tablet,delayed release 40 mg PO DAILY 05/04/25 acetaminophen 325 mg tablet 650 mg (2 x 325 mg) PO Q6H PRN PRN Pain 1-10 Or Fever >100.7 #0 tabs 05/09/25 alendronate 70 mg tablet 70 mg PO QWEEK #14 tabs 09/16/25 budesonide 3 mg capsule,delayed,extended release 2 mg PO QAM Stomach Lining 09/18/25 lisinopril 10 mg tablet 10 mg PO DAILY 09/18/25 Held on 09/23/25. Instructions: Resume on 09/29/25. metoprolol succinate 50 mg tablet,extended release 24 hr 100 mg PO DAILY 09/18/25 potassium chloride 20 mEq tablet,extended release(part/cryst) 20 meq PO DAILY 09/18/25 vancomycin 25 mg/mL oral solution (Firvanq) 125 mg (5 mL) PO Q6 10 days #200 mL 09/23/25 Hospital Course Operations None Procedures None Summary of Care Provided Minutes Spent on Discharge: 34 Hospital Course: Per HPI: AZUL NAVARRETE, is a 80 F with pmhx C diff, CKD st III pt of Dr. Robertson, T2DM, chronic anemia, HTN, GERD, who presents for weakness. Pt was seen by her PCP about 1 week ago for diarrhea as she has a hx of Cdiff she was started on oral vancomycin. The patient states that after she started taking the vancomycin she started having visual hallucinations - notably she was in her apartment but felt that it looked like a home, then her dentist office, then her cat turned into a tiger. She states she called her PCP but never heard back. She was at home today and EMS came to her house to do a well check. She is unaware who called them or why. They found her weak and brought her to the ER. She states she is chronically weak and usually ambualtes with a walker, but is somewhat weaker than normal. She has ongoing diarrhea and last BM was in the ER which was loose. She denies abdominal pain, nausea, or vomiting, fevers or chills. She states she has a mild cold. Hospital Course: 1. C. difficile colitis with OSVALDO on CKD 4?80-year-old female presented to the hospital with weakness and dehydration. She had been having frequent episodes of diarrhea and she has a history of C. difficile so she was started on p.o. vancomycin here in the hospital, C. difficile's test did come back positive for the PCR and antigen but negative for the toxin however she has improvement with the oral vancomycin so this was continued. Other stool studies were negative. She did have a creatinine spike to over 8 however she continued to make urine and was not uremic therefore nephrology did not feel that there is any point at this time and initiating dialysis. She did recover creatinine to 5.5 on the day of discharge with IV fluids and she is eating and drinking well and her diarrhea has improved significantly. I do recommend continuing to hold her lisinopril although this will likely need to be restarted in the next week or so at the long-term. Also she does have anemia of chronic disease and also has a history of minor GI bleeds and her hemoglobin is at its baseline at around 7.5-8 but did drop because of dilution. No signs of GI bleeding and no bloody stools at this time. I discussed with her the plan for discharge and she expressed understanding of the risks and benefits going to the long-term and would like to go today. She is feeling much better than when she came in. I do recommend outpatient lab work and follow-up. 2. Essential hypertension, type 2 diabetes, GERD, anxiety, depression are all chronic medical conditions which complicate her care. Her home medications were continued where appropriate. Physical Exam Narrative General: Alert, Oriented x3, Cooperative, No apparent distress HEENT: Atraumatic, PERRLA, EOMI, Normocephalic Oral: Moist Mucosa Neck: Supple, No JVD Lungs: Diminished, Normal air movement, No rhonchi, No wheeze, No rales Cardiovascular: Regular rate, Regular Rhythm, Normal S1, Normal S2, No murmurs Abdomen: Soft, Non Tender, Non-Distended, No Hepato-splenomegaly Extremities: Edema, Capillary Refill Less than 3 Seconds Skin: No rashes, No breakdown Musculoskeletal: No Tenderness to Palpation of Joints or Extremities Neurological: No focal neurological deficits, moves all extremities Psych/Mental Status: Normal Affect, Appropriate Weight / BMI Weight Weight: 228 lb 4.8 oz Body Mass Index (BMI) 41.7 ABG / Lab / Microbiology Data 09/23/25 11:07 09/23/25 06:59 Laboratory: Laboratory Results - last 24 hr 09/22/25 16:36: POC Glucose 145 H 09/22/25 22:24: POC Glucose 113 H 09/23/25 05:54: POC Glucose 88 09/23/25 06:59: WBC 9.6, RBC 2.48 L, Hgb 7.1 L, Hct 21.8 L, MCV 87.9, MCH 28.6, MCHC 32.6, RDW Std Deviation 52.5 H, RDW Coeff of Juan Diego 16.3 H, Plt Count 224, MPV 9.4, Immature Gran % (Auto) 1.400 H, Neut % (Auto) 67.4, Lymph % (Auto) 6.5 L, M jewel % (Auto) 18.1 H, Eos % (Auto) 6.0 H, Baso % (Auto) 0.6, Absolute Neuts (auto) 6.5, Absolute Lymphs (auto) 0.62 L, Nucleated RBC % 0, Sodium 138, Potassium 4.1, Chloride 107, Carbon Dioxide 19.1 L, Anion Gap 12, BUN 42 H, C reatinine 5.57 H, Estim Creat Clear Calc 9.24 L*, Est GFR (MDRD) Non-Af 7 L, B UN/Creatinine Ratio 7.5 L, Glucose 106 H, Calcium 7.1 L 09/23/25 11:07: Hgb 7.5 L, Hct 23.3 L 09/23/25 11:31: POC Glucose 129 H Microbiology: Microbiology 09/18/25 12:55 Stool Enteric Bacteriology - Final 09/18/25 12:55 Stool C. difficile GDH Antigen & Toxins - Final 09/18/25 12:55 Stool Clostridioides difficile (PCR) - Final D/C Instructions DC O2, CPAP, BIPAP Needs Home O2 Discharge instructions: No Meaningful Use Info Meaningful Use Meaningful Use Diagnoses (Choose all that apply): None applicable Discharge Plan Admission Admit Date/Time: 09/18/25 12:42 Attending Provider: Glen Bonilla Primary Care Provider: Elena Mims Consulting Providers: Chelsie Robertson; Valentino Graham; Glen Bonilla; Hamlet Mujica Instructions Additional Instructions / Restrictions: Monitor hemoglobins at SNF, she may need a transfusion. She does have a history of a duodenal ulcer as well as diverticulosis from colonoscopy and EGD in January 2024. Discharge Orders/Prescriptions Prescriptions: New vancomycin [Firvanq] 25 mg/mL Recon Soln 125 mg PO Q6 10 Days Qty: 200 0RF Continued carvedilol 12.5 mg tablet 6.25 mg PO BIDCM Januvia 50 mg tablet 50 mg PO QDAY folic acid 1 MG tablet 1 mg PO DAILY@0800 calcium carbonate-vitamin D3 [Caltrate with Vitamin D3] 1 TAB tablet 1 tab PO DAILY citalopram 20 mg tablet 20 mg PO QHS ferrous sulfate [FeroSul] 325 mg (65 mg iron) tablet 325 mg PO DAILY amlodipine 5 mg Tablet 5 mg PO DAILY 30 Days Qty: 30 0RF insulin glargine [Lantus Solostar U-100 Insulin] 100 unit/mL (3 mL) insulin pen 12 unit subcut BID aspirin 81 mg capsule 81 mg PO DAILY pantoprazole 40 mg Tablet,Delayed Release (Dr/Ec) 40 mg PO DAILY acetaminophen 325 mg Tablet 650 mg PO Q6H PRN PRN (Reason: Pain 1-10 Or Fever >100.7) Qty: 0 0RF pentoxifylline 400 mg tablet extended release 400 mg PO DAILY vitamin E 268 mg (400 unit) capsule 268 mg PO DAILY metoprolol succinate 50 mg tablet extended release 24 hr 100 mg PO DAILY potassium chloride 20 mEq tablet,ER particles/crystals 20 meq PO DAILY budesonide 3 mg capsule,delayed,extend.release 2 mg PO QAM alendronate 70 mg tablet 70 mg PO QWEEK Qty: 14 3RF Held lisinopril 10 mg tablet 10 mg PO DAILY Hold Instructions: Resume on 09/29/25. Referrals / Follow Up: Elena Mims DO [Primary Care Provider, Internal Medicine] Disposition Disposition (needs filled in before D/C Order can be placed): [facility] Charges/Coding Visit Charges Inpatient E&M: 16054 Disch Hosp >30min
== END 2025-09-23 16:03 | disposition skilled nursing facility (03) | DRG 372 ==
LOC: ED 12:49 → MS3 13:00
PROVIDERS: Admitting Provider Internal Medicine; Emergency Provider Emergency Medicine; PCP Internal Medicine; Visit Provider Family Medicine
DX: A04.72 Enterocolitis due to Clostridium difficile, not specified as recurrent (principal); N17.9 Acute kidney failure, unspecified; N18.4 Chronic kidney disease, stage 4 (severe); E87.20 Acidosis, unspecified; D63.1 Anemia in chronic kidney disease; E11.22 Type 2 diabetes mellitus with diabetic chronic kidney disease; F32.A Depression, unspecified; I12.9 Hypertensive chronic kidney disease with stage 1 through stage 4 chronic kidney disease, or unspecified chronic kidney disease; E78.5 Hyperlipidemia, unspecified; K21.9 Gastro-esophageal reflux disease without esophagitis; Z79.4 Long term (current) use of insulin; F41.9 Anxiety disorder, unspecified; R53.81 Other malaise; Z79.899 Other long term (current) drug therapy; Z96.643 Presence of artificial hip joint, bilateral; Z96.653 Presence of artificial knee joint, bilateral
CPT/HCPCS: 36415; 71045; 73630; 74176; 80048; 80053; 81001; 82728; 82962; 83540; 83550; 85014; 85018; 85025; 87493; 87506; 93005; 94668; 97116; 97162; 97166; 97530; 97535; 97802; 99285; P9612; A4216; J2405

== ENCOUNTER 2025-10-02 11:17 | Outpatient (CLI) | payer MEDICARE, SELFPAY ==
[2025-10-02 11:42] VITALS: BP 186/61; PULSE 65; RESP 16; TEMP 36.9; O2SAT 95
[2025-10-02 12:41] VITALS: BP 167/61; PULSE 63; RESP 18; TEMP 36.9; O2SAT 96
[2025-10-02 13:37] VITALS: BP 159/65; PULSE 64; RESP 16; TEMP 36.6; O2SAT 97
[2025-10-02 14:40] VITALS: BP 176/63; PULSE 59; RESP 18; TEMP 36.4; O2SAT 98
[2025-10-02] MEDS: 0.9% Saline Lock 10 ML Syringe IV (15:12)
[2025-10-02] MEDS: 0.9% Normal Saline (500mL Bag) 500 ML 15 ML IV (15:12)
[2025-10-02 15:29] VITALS: BP 158/66; PULSE 64; RESP 16; TEMP 36.8; O2SAT 96
== END 2025-10-02 15:30 | disposition home or self-care (01) ==
LOC: MS3OUT 11:21 → ICU 11:22
PROVIDERS: PCP Internal Medicine; Referring Provider Nurse Practitioner Adult Health; Visit Provider Nurse Practitioner Adult Health
DX: I71.40 Abdominal aortic aneurysm, without rupture, unspecified (principal); F17.200 Nicotine dependence, unspecified, uncomplicated
CPT/HCPCS: 36430; 86850; 86900; 86901; P9016; A4216

== ENCOUNTER → 2025-10-03 05:00 | Outpatient (REF) | payer MEDICARE, SELFPAY ==
[2025-10-03 07:20] LABS: Hematocrit 28.8 % (37-47); Hemoglobin 9.1 g/dL (12.0-15.0); Immature Granulocytes Count 0.110 X10^3/uL (0.0-0.0); Mean Corp Hgb Conc 31.6 g/dL (32-36); Mean Corpuscular Volume 90.9 fL (81-99); Mean Platelet Vol. 9.2 fl (6.2-12.0); NRBC Flagged by Analyzer 0 % (0-5); Platelet Count 369 K/mm3 (150-450); RBC Distribution Width CV 15.9 % (11.6-14.6); RBC Distribution Width SD 52.9 fl (35.1-43.9); Red Blood Count 3.17 M/mm3 (4.2-5.4); White Blood Count 10.4 K/mm3 (4.4-11.0)
== END ==
LOC: OLS.WHLTCC 05:00
PROVIDERS: PCP Internal Medicine; Visit Provider Internal Medicine
DX: D64.9 Anemia, unspecified (principal)
CPT/HCPCS: 36415; 85025

== ENCOUNTER → 2025-10-06 04:00 | Outpatient (REF) | payer MEDICARE, SELFPAY ==
[2025-10-06 08:23] LABS: Hematocrit 29.8 % (37-47); Hemoglobin 9.4 g/dL (12.0-15.0); Immature Granulocytes Count 0.130 X10^3/uL (0.0-0.0); Mean Corp Hgb Conc 31.5 g/dL (32-36); Mean Corpuscular Volume 91.7 fL (81-99); Mean Platelet Vol. 9.1 fl (6.2-12.0); NRBC Flagged by Analyzer 0 % (0-5); Platelet Count 355 K/mm3 (150-450); RBC Distribution Width CV 15.5 % (11.6-14.6); RBC Distribution Width SD 52.1 fl (35.1-43.9); Red Blood Count 3.25 M/mm3 (4.2-5.4); White Blood Count 10.3 K/mm3 (4.4-11.0)
[2025-10-06 08:39] LABS: Anion Gap 13 (5-15); BUN 41 mg/dL (4-19); BUN/Creat Ratio 11.6 RATIO (10-20); Calcium,Total 8.1 mg/dL (7.6-11.0); Carbon Dioxide 23.7 mmol/L (21.0-32.0); Chloride 105 mmol/L (98-108); Glucose 88 mg/dL (70-99); Potassium 4.2 mmol/L (3.3-5.1)
== END ==
LOC: OLS.WHLTCC 04:00
PROVIDERS: PCP Internal Medicine; Referring Provider Internal Medicine; Visit Provider Internal Medicine
DX: D64.9 Anemia, unspecified; N17.9 Acute kidney failure, unspecified; S92.351G Displaced fracture of fifth metatarsal bone, right foot, subsequent encounter for fracture with delayed healing
CPT/HCPCS: 36415; 80048; 85025

== ENCOUNTER 2025-10-07 08:28 | Inpatient (IN) | payer MEDICARE, SELFPAY ==
[2025-10-07] VITALS (27 sets, daily range): BP systolic 124–180; BP diastolic 49–94; PULSE 64–89; RESP 14–27; TEMP 36.6–38; O2SAT 88–100; BMI 42.5; BMI 40.9
--- NOTE | 2025-10-07 08:41 | EKG12_ITS ---
Test Reason : AMS Blood Pressure : */* mmHG Vent. Rate : 71 BPM Atrial Rate : * BPM P-R Int : * ms QRS Dur : 78 ms QT Int : 410 ms P-R-T Axes : * -35 41 degrees QTcB Int : 445 ms Normal sinus rhythm Left axis deviation Low voltage QRS Cannot rule out Anterior infarct (cited on or before 18-Sep-2025) T wave abnormality, consider lateral ischemia Abnormal ECG When compared with ECG of 18-Sep-2025 10:32, Junctional rhythm has replaced Sinus rhythm Confirmed by NEERAJ PAREDES, PATI ([id number]), business editor ANDREW LINDA ([id number]) on 10/13/2025 6:15:12 AM Referred By: Confirmed By: PATI PICKARD MD
--- NOTE | 2025-10-07 08:43 | EX.ED.DYSGE1 ---
HPI History of Present Illness Chief Complaint: Alt LOC Informant: patient and EMS Onset/Context/Timing Onset: Today Current Severity: Severe Maximum Severity: Severe Narrative Narrative: 80-year-old female extensive past medical history including DNR comfort care, chronic kidney disease dialysis, anemia, GI bleed, diabetes and month ago was diagnosed and treated for C. difficile. Reportedly at the [facility] today she had an altered level of consciousness was sent and Emergency Department. Patient herself is very very limited informant at this time. Recent Illness/Hospitalization: Yes [facility] Medical History Microscopic colitis Anemia CKD (chronic kidney disease) Osteoarthritis History of irritable colon Essential hypertension Dyslipidemia Anxiety Diabetes Kidney disease GI bleed Non-smoker Upper GI bleed Duodenal ulcer Candidiasis of breast History of anemia History of hypertension History of chronic kidney disease History of hyperlipidemia History of diabetes insipidus Candidal intertrigo Stage 3b chronic kidney disease (CKD) Osteoporosis Hyperlipidemia Anemia Hypertension Lymphedema Morbid obesity History of gastroesophageal reflux (GERD) Type II diabetes mellitus Home Medications ?Medication ?Instructions ?Recorded ?Last Taken ?Type folic acid 1 mg tablet 1 mg PO DAILY@0800 SUPPLEMENT 01/21/17 05/03/25 History calcium 600 mg (as 1 tab PO DAILY SUPPLEMENT 03/05/19 05/03/25 History carbonate)-vitamin D3 20 mcg (800 unit) tablet (Caltrate with Vitamin D3) citalopram 20 mg tablet 20 mg PO [facility] mental health 01/22/22 05/03/25 History pentoxifylline 400 mg 400 mg PO DAILY PAD 02/15/24 05/03/25 History tablet,extended release vitamin E 268 mg (400 unit) capsule 268 mg PO DAILY Supplement 02/15/24 05/03/25 History ferrous sulfate 325 mg (65 mg 325 mg PO DAILY Supplement 06/05/24 05/03/25 History iron) tablet (FeroSul) amlodipine 5 mg tablet 5 mg PO DAILY 30 days #30 tabs 01/11/25 05/03/25 Rx aspirin 81 mg capsule 81 mg PO DAILY 05/04/25 05/03/25 History insulin glargine 100 unit/mL (3 12 unit subcut BID 05/04/25 05/03/25 History mL) subcutaneous pen (Lantus Solostar U-100 Insulin) pantoprazole 40 mg tablet,delayed 40 mg PO DAILY 05/04/25 05/03/25 History release acetaminophen 325 mg tablet 650 mg (2 x 325 mg) PO Q6H PRN PRN 05/09/25 Unknown Rx Pain 1-10 Or Fever >100.7 #0 tabs alendronate 70 mg tablet 70 mg PO QWEEK #14 tabs 09/16/25 Unknown Rx budesonide 3 mg 6 mg PO QAM Stomach Lining 09/18/25 Unknown History capsule,delayed,extended release metoprolol succinate 50 mg 100 mg PO DAILY 09/18/25 Unknown History tablet,extended release 24 hr potassium chloride 20 mEq 20 meq PO DAILY 09/18/25 Unknown History tablet,extended release(part/cryst) nystatin 100,000 unit/gram topical 1 applic topical BID 10/07/25 Unknown History powder (Nystop) Allergy/AdvReac Type Severity Reaction Status Date / Time chlorhexidine Allergy Unknown Verified 10/07/25 08:41 Iodinated Contrast Media Allergy Other Verified 10/07/25 08:41 (CONTRASTS) iodine Allergy Unknown Verified 10/07/25 08:41 latex Allergy Rash Verified 10/07/25 08:41 vancomycin AdvReac Intermediate Other Verified 10/07/25 08:41 Family History Other Diabetes Surgical History History of elbow surgery History of tonsillectomy and adenoidectomy 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 Social History household members: none Smoking Status: Never smoker alcohol intake: never substance use type: does not use ROS ROS ED ROS Narrative Patient is a very limited informant. Unable due to her current medical condition. Review of Systems ROS Unobtainable: due to encephalopathy EXAM Physical Exam Narrative Exam Narrative: 80-year-old female sitting upright in bed vital signs are stable except she is hypoxic on 4 L she is 88% and on 6 L she is 95%. She is hypoxic with and without oxygen. She normally does not wear oxygen according to the nurse I spoke to her at the [facility]. H EENT exam pupils round react light. Extra motions are intact. No facial droop. No trauma. Nontender. Dry mucous membranes. Neck nontender no JVD. No lymphadenopathy. Lungs coarse breath sounds bilaterally. Heart regular rhythm rate about 75 no murmur. Chest wall ribs nontender. Abdomen soft nontender. Moving all 4 extremities. No deformity. She has chronic skin changes both lower extremities. Neurologically her eyes are open she will answer very limited questions and follow very limited commands. She does know she is at the hospital. Const Vital Signs: 10/07/25 08:29 10/07/25 08:35 10/07/25 08:58 Temperature 97.9 F 97.9 F Temperature Source Axillary Axillary Pulse Rate 77 74 Respiratory Rate 23 H 22 H Blood Pressure 147/84 H 147/84 H Blood Pressure Mean 105 105 Pulse Ox 88 95 Oxygen Delivery Method Nasal Cannula Nasal Cannula Nasal Cannula Oxygen Flow Rate (L/min) 4 6 6 10/07/25 09:12 10/07/25 09:37 10/07/25 10:00 Temperature 98 F 98.1 F Temperature Source Core Core Pulse Rate 88 89 Respiratory Rate 27 H 18 Blood Pressure 161/75 H 141/76 H Blood Pressure Mean 103 97 Pulse Ox 97 95 Oxygen Delivery Method Nasal Cannula Nasal Cannula Oxygen Flow Rate (L/min) 6 10/07/25 10:02 10/07/25 11:00 10/07/25 11:32 Temperature 98.2 F 98.8 F 98.4 F Temperature Source Oral Oral Pulse Rate 75 67 69 Respiratory Rate 23 H 16 19 H Blood Pressure 180/91 H 139/64 H 148/76 H Blood Pressure Mean 120 89 100 Pulse Ox 100 98 98 Oxygen Delivery Method Room Air Oxygen Flow Rate (L/min) 10/07/25 12:00 10/07/25 12:01 Temperature 98.4 F Temperature Source Core Pulse Rate 67 67 Respiratory Rate 16 Blood Pressure 151/69 H 151/69 H Blood Pressure Mean 96 96 Pulse Ox 99 99 Oxygen Delivery Method Nasal Cannula Oxygen Flow Rate (L/min) MDM MDM MDM Narrative Medical decision making narrative: 80-year-old female DNR comfort care I did speak to the [facility]. She has an altered mental status, hypoxia and clinically looks dehydrated. She has an extensive past medical history. She will go through a sepsis workup. She will be given IV fluids. I spoke to the niece. The patient is not a dialysis patient. Multiple repeat exams no significant change. Jazz has been in the emergency department shortly after the patient arrived have updated her on test results. Patient will be admitted to hospitalist. Given her current kidney function she is not really a candidate for CTA of the chest. I was called to the room prior to the patient being admitted she had some blood coming from her mouth but it was not hematemesis. The hospitalists admitted the patient to the ICU and changed her CODE STATUS. History & Record Review Discussion w/independent historian: EMS personnel, Patient and Other (I spoke to the [facility] nursing staff.) Additional record(s) reviewed:: Prior inpatient record, Prior outpatient record, Prior ED visit and Prior labs Lab Data Attestation: I reviewed the patient's lab results. Lab results narrative: CBC shows a white count elevated 22.6. H&H 9.9 and 32 consistent with her chronic anemia. Platelets 356. PT/INR of 14 and 1.1. PTT at 31. Electrolytes show a gap of 12. BUN and creatinine of 41 and 3.55 consistent with her chronic kidney disease. Glucose 119. Lactic acid is normal at 1.2. Liver enzymes are unremarkable. UA is negative. Chest x-ray negative. Left shoulder and left humerus show chronic changes. ABG showed a pH 7.32. pCO2 48 pO2 of 75. Sat 93% this was on oxygen. Labs: Laboratory Results - last 24 hr 10/07/25 10/07/25 10/07/25 09:07 09:08 12:17 WBC 22.6 H RBC 3.51 L Hgb 9.9 L Hct 32.0 L MCV 91.2 MCH 28.2 MCHC 30.9 L RDW Std Deviation 51.4 H RDW Coeff of Juan Diego 15.3 H Plt Count 356 MPV 8.9 Immature Gran % (Auto) 1.200 H Neut % (Auto) 81.1 H Lymph % (Auto) 3.4 L [place] % (Auto) 11.8 H Eos % (Auto) 2.0 Baso % (Auto) 0.5 Absolute Neuts (auto) 18.3 H Absolute Lymphs (auto) 0.77 L Differential Comment SCANNED PT 14.4 INR 1.1 APTT 31.5 Sodium 141 Potassium 3.6 Chloride 105 Carbon Dioxide 24.4 Anion Gap 12 BUN 41 H Creatinine 3.55 H Estim Creat Clear Calc 14.67 L Est GFR (MDRD) Non-Af 13 L BUN/Creatinine Ratio 11.5 Glucose 119 H Lactic Acid 1.2 Calcium 7.0 L Total Bilirubin 0.45 AST 21 ALT 12 Alkaline Phosphatase 79 Total Protein 6.4 Albumin 3.5 Globulin 2.8 Albumin/Globulin Ratio 1.2 Urine Color Yellow Urine Clarity Clear Urine pH 6.5 Ur Specific [place] 1.010 Urine Protein 30 H Urine Glucose (UA) NEGATIVE Urine Ketones Negative Urine Occult Blood 25 H Urine Nitrite Negative Urine Bilirubin Negative Urine Urobilinogen Normal Ur Leukocyte Esterase Negative Urine RBC 0 SEEN Urine WBC 0 SEEN Ur Squamous Epith Cells 0 SEEN Urine Bacteria 0 SEEN Urine Mucus 0 SEEN POC Glucose 72 L ABG Data ABG results: ABG 10/07/25 11:20 Specimen Type ART Sample Site L Radial pH 7.32 L Bicarbonate Actual 24.9 Total CO2 26 Base Excess -1 O2 Saturation 94 O2 % 6.0 ABG pCO2 48.1 H ABG pO2 75 Michael Test Positive O2 Delivery Device Cannula Vent Mode Not entered Radiography Chest X-Ray - ED: 1 View, Read by ED Physician, Read by Radiologist, Lungs, Mediastinum, Bony Structures, No Acute Disease and Chronic Changes Diagnostic Testing: Clinical Impression(s) from Imaging Studies Chest X-Ray 10/07/25 09:50 IMPRESSION: Hypoventilation without acute cardiopulmonary abnormality. Reading Location: [facility] Humerus X-Ray 10/07/25 09:55 IMPRESSION: NO ACUTE FRACTURE OR DISLOCATION. Moderate osteoarthritis of the left acromioclavicular and left glenohumeral joints. Reading Location: [facility] Shoulder X-Ray 10/07/25 09:55 IMPRESSION: No fracture or dislocation is identified. Reading Location: [facility] Chest x-ray, single view, interpreted by myself and the radiologist shows chronic changes no acute process. No pneumonia. No effusion. Left shoulder x-ray, multiple views, interpreted both by myself and the radiologist shows chronic changes. Arthritis. No fracture or dislocation. Left humerus, 2 views, interpreted both by myself and the radiologist shows no acute fracture. No dislocation. Arthritis and chronic changes. Rhythm Strip Rhythm Strip: Junctional rhythm Rate: 71 Ectopy: None EKG Initial EKG: Attestation: I personally reviewed and interpreted this EKG as follows: Interpretation: No Acute Injury Pattern and Junctional Comments: Junctional rhythm rate of 71 no acute changes. Artifact. Low voltage. Prior EKG tracings: available for review Prior: Changed Discharge Plan Dx/Rx/DC Orders Clinical Impression: Altered level of consciousness, Leukocytosis, Hypoxia, End stage kidney disease Disposition Disposition: Acute Care Hospital [facility] Discharge Date/Time: 10/07/25 13:50
[2025-10-07 09:15] LABS: Mucous, Urine 0 SEEN /hpf (<or=2+); Red Blood Cells-Urine 0 SEEN /hpf (0-5); Squamous Epithelial Cells - UA 0 SEEN /hpf (5-10)
[2025-10-07] MEDS: 0.9% Normal Saline (1000mL) 1,000 ML 999 ML IV (09:28)
[2025-10-07 09:29] LABS: White Blood Count 22.6 K/mm3 (4.4-11.0)
[2025-10-07 09:30] LABS: Hematocrit 32.0 % (37-47); Hemoglobin 9.9 g/dL (12.0-15.0); Immature Granulocytes Count 0.270 X10^3/uL (0.0-0.0); Mean Corp Hgb Conc 30.9 g/dL (32-36); Mean Corpuscular Volume 91.2 fL (81-99); Mean Platelet Vol. 8.9 fl (6.2-12.0); Platelet Count 356 K/mm3 (150-450); RBC Distribution Width CV 15.3 % (11.6-14.6); RBC Distribution Width SD 51.4 fl (35.1-43.9); Red Blood Count 3.51 M/mm3 (4.2-5.4)
[2025-10-07 09:32] LABS: Differential Indicated SCAN CRITERIA MET
[2025-10-07 09:35] LABS: Partial Thromboplast Time 31.5 Seconds (24.1-36.2); Prothrombin Time (Protime)PT. 14.4 SECONDS (11.7-14.9)
[2025-10-07 09:41] LABS: Color, Urine Yellow (Yellow); Glucose, Dipstick NEGATIVE (Normal); Ketone-Dipstick Negative (Negative); Leukocyte Esterase-Dipstick Negative /ul (Negative); Nitrite-Dipstick Negative (Negative); Occult Blood-Urine 25 /ul (Negative); Protein-Dipstick 30 mg/dl (Negative); Specific Gravity, Urine 1.010 (1.002-1.030); Urine Bilirubin Dipstick Negative (Negative)
--- NOTE | 2025-10-07 09:50 | RAD_ITS ---
PROCEDURE: CHEST 1 VIEW (PORTABLE) 10/07/2025 REASON FOR EXAM: ALOC TECHNIQUE: Frontal view of the chest. COMPARISON: 08/2025 chest x-ray FINDINGS: Hardware: None Heart: Cardiac and mediastinal contours are stable. Lungs: Hypoventilation. The lungs are clear. Bones: The bones are unremarkable. RAD/Chest 1 View (Portable) IMPRESSION: Hypoventilation without acute cardiopulmonary abnormality. Reading Location: [facility]
--- NOTE | 2025-10-07 09:55 | RAD_ITS ---
PROCEDURE: SHOULDER MIN 2 VIEWS 10/07/2025 REASON FOR EXAM: INJURY PER NIECE AT [facility] TECHNIQUE: Procedure Code: RADSH Modality: DX Procedure: SHOULDER MIN 2 VIEWS Left shoulder three views COMPARISON: None FINDINGS: There is moderate osteoarthritis of the glenohumeral articulation with subcortical cyst formation noted. There is loss of the subacromial space consistent with rotator cuff disease. The AC joint is aligned. No acute fracture is identified. There is no dislocation. Osteopenia is noted. RAD/Shoulder min 2 Views IMPRESSION: No fracture or dislocation is identified. Reading Location: [facility]
--- NOTE | 2025-10-07 09:55 | RAD_ITS ---
PROCEDURE: HUMERUS MIN 2 VIEWS 10/07/2025 REASON FOR EXAM: INJURY PER NIECE TECHNIQUE: Procedure Code: RADHUM Modality: DX Procedure: HUMERUS MIN 2 VIEWS Laterality: Left COMPARISON: Left FINDINGS: Bones: No acute fracture. Joints: No evidence of dislocation of the left glenohumeral or acromioclavicular joints. Moderate joint space narrowing is noted within the left glenohumeral and acromioclavicular joints. Soft tissues: Soft tissues are unremarkable. RAD/Humerus min 2 Views IMPRESSION: NO ACUTE FRACTURE OR DISLOCATION. Moderate osteoarthritis of the left acromioc lavicular and left glenohumeral joints. Reading Location: [facility]
[2025-10-07 10:03] LABS: Differential Comment SCANNED
[2025-10-07 10:33] LABS: AST(SGOT) 21 U/L (<=31); Alanine Aminotransfer ALT/SGPT 12 U/L (<=34); Albumin, Serum 3.5 g/dL (3.4-4.8); Alkaline Phosphatase 79 U/L (35-104); Anion Gap 12 (5-15); BUN 41 mg/dL (4-19); BUN/Creat Ratio 11.5 RATIO (10-20); Calcium,Total 7.0 mg/dL (7.6-11.0); Carbon Dioxide 24.4 mmol/L (21.0-32.0); Chloride 105 mmol/L (98-108); Estimated Creatinine Clearance 14.67 ml/min (50-250); Globulin 2.8 g/dL (2.2-4.2); Glucose 119 mg/dL (70-99); Potassium 3.6 mmol/L (3.3-5.1)
[2025-10-07 11:23] LABS: Allen Test Positive; Base Excess -1 mmol/L (-2 to +2); FI02 6.0; PO2 75 mmHG (75-100); SITE L Radial; SO2 94 % (94-98)
--- NOTE | 2025-10-07 11:48 | CM.ED ---
Social Work Patient is from [facility]. Patients family states she plans to return there once medically able. Tiffanie Gerber, HEATING AND VENTILATING WORKER, SECURITY INSPECTOR
--- NOTE | 2025-10-07 11:50 | CM.ED ---
Social Work Patient is from [place] [employer] [facility]. Family states patient plans to return when medically ready. Tiffanie Gerber, SENIOR CORPORATE RECRUITER, CASTING AGENT
--- NOTE | 2025-10-07 12:19 | ED.RN ---
PT BGT 72 DR. DAVIS STATES CHECK HER BEFORE SHE GOES TO THE FLOOR.
--- NOTE | 2025-10-07 13:10 | HP.PCM.HOS_ITS ---
HPI - General General Date of Service: 10/07/25 Chief Complaint: Confusion. HPI Narrative AZUL NAVARRETE, is a 80 F who presents with confusion. This is a 80-year-old female who just had C. difficile. Yesterday was transferred to assisted living and then it was patient had injured her arm try to get into her chair and it was noted that it was out of place but eventually was not but was not reduced by anyone in particular. But patient was having pain. Patient was at her facility and was found to be confused and hypoxic. Sent to the emergency room where she underwent a workup which was remarkable for an ABG that showed pH of 7.3 and pCO2 of 48.1. X-rays of her shoulder were negative for any fracture nor dislocation. Patient did receive morphine in the emergency room because of her pain and currently she is dozing on and off during the encounter so much of the history is obtained through emergency room physician as well as the patient's niece who is present at bedside. Niece stated that there is blood coming out of the patient's mouth as well. [ ] [facility] Medical History Microscopic colitis Anemia CKD (chronic kidney disease) Osteoarthritis History of irritable colon Essential hypertension Dyslipidemia Anxiety Diabetes Kidney disease GI bleed Non-smoker Upper GI bleed Duodenal ulcer Candidiasis of breast History of anemia History of hypertension History of chronic kidney disease History of hyperlipidemia History of diabetes insipidus Candidal intertrigo Stage 3b chronic kidney disease (CKD) Osteoporosis Hyperlipidemia Anemia Hypertension Lymphedema Morbid obesity History of gastroesophageal reflux (GERD) Type II diabetes mellitus Home Medications ?Medication ?Instructions ?Recorded ?Last Taken ?Type folic acid 1 mg tablet 1 mg PO DAILY@0800 SUPPLEMEN T 01/21/17 05/03/25 History calcium 600 mg (as 1 tab PO DAILY SUPPLEMENT 05/03/25 History carbonate)-vitamin D3 20 mcg (800 unit) tablet (Caltrate with Vitamin D3) citalopram 20 mg tablet 20 mg PO QHS mental health 0 01/22/22 05/03/25 History pentoxifylline 400 mg 400 mg PO DAILY PAD 02/15/24 05/03/25 History tablet,extended release vitamin E 268 mg (400 unit) capsule 268 mg PO DAILY Ziegler pplement 02/15/24 05/03/25 History ferrous sulfate 325 mg (65 mg 325 mg PO DAILY Suppleme nt 06/05/24 05/03/25 History iron) tablet (FeroSul) amlodipine 5 mg tablet 5 mg PO DAILY 30 days #30 ta bs 01/11/25 05/03/25 Rx aspirin 81 mg capsule 81 mg PO DAILY 05/04/25 07/03/23 History insulin glargine 100 unit/mL (3 12 unit subcut BID 04/2305/03/25 History mL) subcutaneous pen (Lantus Solostar U-100 Insulin) pantoprazole 40 mg tablet,delayed 40 mg PO DAILY 05/0405/03/25 History release acetaminophen 325 mg tablet 650 mg (2 x 325 mg) PO Q6H PRN PRN 05/09/25 Unknown Rx Pain 1-10 Or Fever >100.7 #0 tabs alendronate 70 mg tablet 70 mg PO QWEEK #14 tabs 08/30 06/23 Unknown Rx budesonide 3 mg 6 mg PO QAM Stomach Lining 1 11/18/24 Unknown History capsule,delayed,extended release metoprolol succinate 50 mg 100 mg PO DAILY 09/18/25 Un known History tablet,extended release 24 hr potassium chloride 20 mEq 20 meq PO DAILY 09/18/25 Unk nown History tablet,extended release(part/cryst) nystatin 100,000 unit/gram topical 1 applic topical BI D 10/07/25 Unknown History powder (Nystop) Allergy/AdvReac Type Severity Reaction Status Date / Time chlorhexidine Allergy Unknown Verified 10/07/25 08:41 Iodinated Contrast Media Allergy Other Verified 10/07/25 08:41 (CONTRASTS) iodine Allergy Unknown Verified 10/07/25 08:41 latex Allergy Rash Verified 10/07/25 08:41 vancomycin AdvReac Intermediate Other Verified 10/07/25 08:41 Family History Other Diabetes Surgical History History of elbow surgery History of tonsillectomy and adenoidectomy 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 Social History household members: none Smoking Status: Never smoker alcohol intake: never substance use type: does not use ROS Review of Systems ROS Unobtainable: due to encephalopathy Vital Signs Vital Signs Vital Signs: 10/07/25 08:29 10/07/25 08:35 10/07/25 08:58 Temperature 36.6 C 36.6 C Temperature Source Axillary Axillary Pulse Rate 77 74 Respiratory Rate 23 H 22 H Blood Pressure 147/84 H 147/84 H Blood Pressure Mean 105 105 Pulse Ox 88 95 Oxygen Delivery Method Nasal Cannula Nasal Cannula Nasal Cannula Oxygen Flow Rate (L/min) 4 6 6 10/07/25 09:12 10/07/25 09:37 10/07/25 10:00 Temperature 36.6 C 36.7 C Temperature Source Core Core Pulse Rate 88 89 Respiratory Rate 27 H 18 Blood Pressure 161/75 H 141/76 H Blood Pressure Mean 103 97 Pulse Ox 97 95 Oxygen Delivery Method Nasal Cannula Nasal Cannula Oxygen Flow Rate (L/min) 6 10/07/25 10:02 10/07/25 11:00 10/07/25 11:32 Temperature 36.8 C 37.1 C 36.9 C Temperature Source Oral Oral Pulse Rate 75 67 69 Respiratory Rate 23 H 16 19 H Blood Pressure 180/91 H 139/64 H 148/76 H Blood Pressure Mean 120 89 100 Pulse Ox 100 98 98 Oxygen Delivery Method Room Air Oxygen Flow Rate (L/min) 10/07/25 12:00 10/07/25 12:01 Temperature 36.9 C Temperature Source Core Pulse Rate 67 67 Respiratory Rate 16 Blood Pressure 151/69 H 151/69 H Blood Pressure Mean 96 96 Pulse Ox 99 99 Oxygen Delivery Method Nasal Cannula Oxygen Flow Rate (L/min) Weight Weight: 105.642 kg Body Mass Index (BMI) 42.5 Physical Exam Const Constitutional Narrative: Awake but dozes off during the encounter. On oxygen. No respiratory distress. HEENT normocephalic HEENT Narrative: Mallampati 4. No source of any bleeding that I can identify. No thrush. Resp Resp Narrative: Coarse breath sounds bilaterally Cardio regular rate, regular rhythm, S1 normal heart sound and S2 normal heart sound GI normal to inspection, nondistended, normoactive bowel sounds and soft to palpation Extremity normal to inspection and full ROM Neuro moves all extremities Results Lab / Micro Data 10/07/25 09:08 10/07/25 09:08 Labs: Laboratory Results - last 24 hr 10/07/25 09:07: Urine Color Yellow, Urine Clarity Clear, Urine pH 6.5, Ur Specific [place] 1.010, Urine Protein 30 H, Urine Glucose (UA) NEGATIVE, Urine Ketones Negative, Urine Occult Blood 25 H, Urine Nitrite Negative, Urine Bilirubin Negative, Urine Urobilinogen Normal, Ur Leukocyte Esterase Negative, Urine RBC 0 SEEN, Urine WBC 0 SEEN, Ur Squamous Epith Cells 0 SEEN, Urine Bacteria 0 SEEN, Urine Mucus 0 SEEN 10/07/25 09:08: WBC 22.6 H, RBC 3.51 L, Hgb 9.9 L, Hct 32.0 L, MCV 91.2, MCH 28.2, MCHC 30.9 L, RDW Std Deviation 51.4 H, RDW Coeff of [place] 15.3 H, Plt Count 356, MPV 8.9, Immature Gran % (Auto) 1.200 H, Neut % (Auto) 81.1 H, Lymph % (Auto) 3.4 L, [place] % (Auto) 11.8 H, Eos % (Auto) 2.0, Baso % (Auto) 0.5, A bsolute Neuts (auto) 18.3 H, Absolute Lymphs (auto) 0.77 L, Differential Comment SCANNED, PT 14.4, INR 1.1, APTT 31.5, Sodium 141, Potassium 3.6, Chloride 105, Carbon Dioxide 24.4, Anion Gap 12, BUN 41 H, Creatinine 3.55 H, Estim Creat Clear Calc 14.67 L, Est GFR (MDRD) Non-Af 13 L, BUN/Creatinine Ratio 11.5, G lucose 119 H, Lactic Acid 1.2, Calcium 7.0 L, Total Bilirubin 0.45, AST 21, ALT 12, Alkaline Phosphatase 79, Total Protein 6.4, Albumin 3.5, Globulin 2.8, Albumin/Globulin Ratio 1.2 10/07/25 12:17: POC Glucose 72 L Micro: Microbiology 10/07/25 09:52 Mucosa - Nose SARS-CoV-2, Influenza & RSV (PCR) - Final ABG Data ABG results: ABG 10/07/25 11:20 Specimen Type ART Sample Site L Radial pH 7.32 L Bicarbonate Actual 24.9 Total CO2 26 Base Excess -1 O2 Saturation 94 O2 % 6.0 ABG pCO2 48.1 H ABG pO2 75 Michael Test Positive O2 Delivery Device Cannula Vent Mode Not entered Rhythm Strip Rhythm Strip: Junctional rhythm Rate: 71 Ectopy: None Imaging Radiology Impression Chest X-Ray 10/07/25 09:50 IMPRESSION: Hypoventilation without acute cardiopulmonary abnormality. Reading Location: [facility] Humerus X-Ray 10/07/25 09:55 IMPRESSION: NO ACUTE FRACTURE OR DISLOCATION. Moderate osteoarthritis of the left acromioclavicular and left glenohumeral joints. Reading Location: [facility] Shoulder X-Ray 10/07/25 09:55 IMPRESSION: No fracture or dislocation is identified. Reading [facility] Assessment & Plan Assessment/Plan (1) Metabolic encephalopathy: PLAN: Pry secondary to CO2 narcosis. Patient presented with confusion. When I saw her she was more somnolent and that Leese was partially attributable to the morphine that she had just received. Patient be placed on BiPAP and will see the patient response. Chest x-ray was unremarkable. But given the patient's body habitus very concerned the patient has underlying sleep apnea. Patient be admitted to the intensive care unit at least overnight so that we can observe her on the BiPAP and observe her mental status. (2) Respiratory acidosis: PLAN: Suspect underlying NICHOLE possible restrictive lung disease. Patient will be started on BiPAP and will monitor. (3) Left arm pain: PLAN: Patient injured her arm trying to get into an arm chair. From the niece's description sounds like it may have been dislocated given that was described as being out of place but x-rays here were unremarkable. Patient have significant pain. She had been in a sling at the facility and we will place her back in a sling and pain control with the exception of narcotics and gabapentin. Additionally hold off on NSAIDs given her CKD. I would recommend that she follow-up with orthopedics as outpatient Weightbearing as tolerated to left upper extremity. PLAN: Plan Leukocytosis: Patient recently treated for C. difficile but no overt diarrhea at this time but will monitor Obesity class III: Complicates care and recovery Diabetes mellitus type 2: Continue with glargine. Sign scale insulin. Check an A1c. Recent C. difficile: Expectant monitoring at this time. 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 Will monitor. If it continues to worsen may need to consult nephrology. VTE prophylaxis with heparin Charges/Coding Visit Charges Inpatient E&M: 90562 Init Hosp L3
--- NOTE | 2025-10-07 13:25 | ED.RN ---
At approx 1320 this nurse observed on patient's monitor from back nurses stations patient's spO2 waveform of 24%. This nurse rushed to the patient's room with Minnie RICHARDSON who observed patient unresponsive in bed with blood running down from both sides of her face. Patient was unresponsive with a sternal rub by Minnie RICHARDSON and was observed breathing agonally. Patient's jaw clenched, unresponsive to stimulation to eye. Patient's mouth suctioned. Dr. Gunn bedside. Pulse was initially felt and then lost. Code blue button initiated by this RN. Elaine RICHARDSON bedside with RT. Dr. Coughlin bedside stating niece spoke with him and states she does not want any CPR or extreme measures. O2 spontaneously increased to 50s and waned backed to 20s. Pulse spontaneously returned and code blue was cancelled. Patient placed on nonrebreather and O2 increased to 60s, patient still breathing agonally. Primary RN notified.
--- NOTE | 2025-10-07 13:39 | CM.ED ---
Social Work Reason for visit: Code Blue SW responded to code blue, no family in the room at the time of code. Patient to be admitted to ICU. Tiffanie Gerber, SELF PROPELLED [employer] M[employer] ROLLER OPERATOR, COW WASHER
[2025-10-07] MEDS: Midazolam 2 MG/2 ML Syringe IV (14:47)
[2025-10-07] MEDS: Propofol 10MG/Ml 1,000 MG/100 ML Bottle 6.1 MG CONT INF (14:50)
--- NOTE | 2025-10-07 14:56 | CT_ITS ---
PROCEDURE: CT CHEST WITHOUT CONTRAST 10/07/2025 REASON FOR EXAM: HEMOPTYSIS TECHNIQUE: Chest CT without contrast. Coronal and Sagittal reconstruction series were provided. One or more dose reduction techniques were used (e.g., Automated exposure control, adjustment of the mA and/or kV according to patient size, use of iterative reconstruction technique RADIATION DOSE SUMMARY: CTDlvol: 18.54 mGy DLP: 565.18 mGycm COMPARISON: None. FINDINGS: DEVICES: Endotracheal tube terminating in the lower tracheal airway. Enteric tube extends into the body of the stomach, distal tip collimated from view. LUNGS/PLEURA: Dependent atelectasis and/or consolidation in the bilateral lower lobes. No pneumothorax or pleural effusion. Patent central airways. MEDIASTINUM: Unremarkable. No suspicious lymph node enlargement. HEART: Mildly enlarged. No pericardial effusion. Mild coronary artery calcifications. THORACIC AORTA: Normal in caliber. Minimal atherosclerotic calcifications. UPPER ABDOMEN: Small subcentimeter nonobstructive stone in the right renal pelvis, without any significant hydronephrosis visualized. Otherwise, unremarkable. BONES: There is an acute displaced comminuted fracture of the right humeral head/surgical neck. No additional acute fracture visualized. Multilevel degenerative changes of the spine. CT/Chest without Contrast IMPRESSION: 1. Endotracheal and enteric tubes appear appropriately positioned. 2. Dependent atelectasis and/or consolidation in the bilateral lower lobes. 3. Mild cardiomegaly. No pleural effusions or significant lymphadenopathy. 4. Small subcentimeter nonobstructive right renal stone. 5. Acute displaced comminuted fracture of the right humeral head/surgical neck. Reading Location: [id number]
[2025-10-07] MEDS: fentaNYL drip 100 ML 2.5 MCG CONT INF (15:00)
--- NOTE | 2025-10-07 15:03 | PCM.HOSP.N ---
Hospitalist Note Procedure note Procedure is endotracheal intubation Indication is for respiratory failure and failure to protect airway Consent obtained through the patient's POALetha. Procedure: Patient received 2 mg of midazolam and 20 mg of etomidate.. Patient was back for roughly 30 seconds prior to intubation. Using a glide scope, the vocal cords were visualized and no active bleeding nor significant secretions were noted. A SIM 0.5 endotracheal tube was advanced through the vocal cords successfully and was 25 cm at the lips. The endotracheal tube was secured in place. Patient had good color change with capnography. Had audible breath sounds bilaterally. Chest x-ray findings: ET tube above the ventura but will be pulled back 1 cm. OG tube in proper positioning. Ventilator settings: Respiratory rate of 12, assist-control, PEEP of 5, volume of 500 cc. Procedures Hospitalists Procedures: [id number] Insert Emergency Airway Procedures Pulmonary CF Procedures [id number]: Other Procedure See Report Multi Select Codes Hospitalists' Procedures Procedures: Other Procedure - See Report ([id number])
--- NOTE | 2025-10-07 15:20 | RAD_ITS ---
PROCEDURE: CXR FOR LINE PLACEMENT 10/07/2025 REASON FOR EXAM: INTUBATED TECHNIQUE: Procedure Code: RADCXRLP Modality: DX Procedure: CXR FOR LINE PLACEMENT COMPARISON: 10/07/2025 at 9:55 a.m. FINDINGS: LINES: Endotracheal tube tip terminating 1.1 cm above the ventura. Enteric tube tip in the gastric pylorus region. LUNGS AND PLEURA: New opacity in the left inferior lung. No pleural effusion or pneumothorax. HEART AND MEDIASTINUM: The cardiac silhouette is mildly enlarged. The mediastinal contour is normal. AORTA: Mildly calcified aortic arch. BONES: Abnormal right humeral head and neck contour with limited visualization due to overlying x-ray labels. RAD/CXR for Line Placement IMPRESSION: 1. Low ET tube terminating 1.1 cm above the ventura. Withdrawal of approximate ly 3.0 cm is suggested. 2. New left inferior lung opacity, likely atelectasis or aspiration. 3. Abnormal right humeral head and neck contour, partially obscured by overlyi ng x-ray labels. This appears new since the prior study. A right shoulder series is recommended to better evaluate. Reading Location: [id number]
[2025-10-07] MEDS: 0.9% Saline Lock 10 ML Syringe IV ×2 (15:23→21:13)
--- NOTE | 2025-10-07 15:25 | NURSING ---
1447- etomidate and versed given per orders 1448- intubated with #7.5 ETT, 25 @ teeth, positive color change and bilateral breath sounds 1451- propofol 20 mg IVP bolus per Dr. Georges 1454- propofol 20 mg IVP bolus per Dr. Georges 1510- OG placed
--- NOTE | 2025-10-07 16:33 | NURSING ---
Bob, with [facility] called unit, updated on patient status. [facility], if any neuro decline call [facility].
[2025-10-07 16:57] LABS: Base Excess -1 mmol/L (-2 to +2); FI02 50.0; PEEP 5; PO2 61 mmHG (75-100); RR 14; SITE R Brach; SO2 90 % (94-98)
[2025-10-07] MEDS: Propofol 10MG/Ml 1,000 MG/100 ML Bottle 12.1 MG CONT INF (20:24)
[2025-10-07] MEDS: Pantoprazole Sodium 40 MG in 0.9% Normal Saline (100mL MB+) 100 ML 300 MG IV (21:38)
[2025-10-07] MEDS: Chlorhexidine 15 ML PO (21:39)
[2025-10-07] MEDS: 0.9% Normal Saline (250mL Bag) 250 ML 15 ML IV (22:08)
[2025-10-07] MEDS: fentaNYL drip 100 ML 10 MCG CONT INF (23:44)
[2025-10-08] VITALS (39 sets, daily range): BP systolic 116–157; BP diastolic 46–95; PULSE 79–100; RESP 14–18; TEMP 37.8–38.3; O2SAT 86–100; BMI 40.6
[2025-10-08] MEDS: Propofol 10MG/Ml 1,000 MG/100 ML Bottle 12.1 MG CONT INF (03:39)
[2025-10-08] MEDS: 0.9% Saline Lock 10 ML Syringe IV ×2 (03:48→21:50)
[2025-10-08 03:57] LABS: Hematocrit 27.2 % (37-47); Hemoglobin 8.5 g/dL (12.0-15.0); Immature Granulocytes Count 0.220 X10^3/uL (0.0-0.0); Mean Corp Hgb Conc 31.3 g/dL (32-36); Mean Corpuscular Volume 91.6 fL (81-99); Mean Platelet Vol. 9.4 fl (6.2-12.0); NRBC Flagged by Analyzer 0 % (0-5); POSITIVE DIFFERENTIAL YES; Platelet Count 284 K/mm3 (150-450); RBC Distribution Width CV 15.3 % (11.6-14.6); RBC Distribution Width SD 51.4 fl (35.1-43.9); Red Blood Count 2.97 M/mm3 (4.2-5.4); White Blood Count 19.9 K/mm3 (4.4-11.0)
[2025-10-08 03:58] LABS: Differential Indicated SCAN CRITERIA MET
[2025-10-08 04:14] LABS: CPK Total, Creatine Kinase 329 U/L (24-195); Triglycerides 115 mg/dL
[2025-10-08 04:23] LABS: Anion Gap 14 (5-15); BUN 41 mg/dL (4-19); BUN/Creat Ratio 10.6 RATIO (10-20); Calcium,Total 7.5 mg/dL (7.6-11.0); Carbon Dioxide 21.5 mmol/L (21.0-32.0); Chloride 107 mmol/L (98-108); Estimated Creatinine Clearance 12.81 ml/min (50-250); Glucose 88 mg/dL (70-99); Potassium 3.4 mmol/L (3.3-5.1)
[2025-10-08 04:26] LABS: Differential Comment SCANNED
--- NOTE | 2025-10-08 05:35 | CON.PCM.CC_ITS ---
Assessment & Plan Assessment/Plan (1) Acute hypercapnic respiratory failure: PLAN: Plan RECOMMENDATIONS: 1. Continue assist-control mode of mechanical ventilation. Wean FiO2 and PEEP as tolerated. 2. Place sedation on hold for spontaneous awakening trial this morning. Proceed with SBT, if feasible. 3. Initiate empiric antimicrobials, pending infectious workup. 4. Obtain follow-up ABG and chest x-ray. 5. Obtain orthopedic consultation regarding humeral head/neck fracture 6. If ongoing sedation is required, propofol and fentanyl can be utilized. 7. Send type and screen. 8. Continue appropriate ICU prophylaxis. IMPRESSIONS: 1. Acute hypoxemic and hypercapnic respiratory failure Most likely secondary to central respiratory depression induced by IV morphine administration in a patient with underlying renal insufficiency. As a consequence of this, the patient's airway became compromised and she did require emergent intubation. Follow-up CT scan demonstrated possible atelectasis versus infiltrate in the lung bases. Therefore, antimicrobials will be initiated empirically, while awaiting infectious workup. The patient will be continued on assist-control mode of mechanical ventilation. Will obtain follow-up ABG and chest x-ray. Lastly, the patient's sedation will be placed on hold for a spontaneous awakening trial. If appropriate, we will proceed with SBT to assess readiness for possible extubation. Continue appropriate ICU prophylaxis. 2. Toxic/metabolic encephalopathy Again, likely related to IV morphine administration. If mentation does not begin to improve with cessation of sedatives, and ABGs within normal limits, will consider obtaining CT imaging of the head. 3. Recent fall with acute displaced fracture of the right humeral head Plan to obtain plain film chest imaging and obtain orthopedic consultation. 4. History of chronic kidney disease/recent C. difficile colitis/hypertension/diabetes mellitus/GERD Complicates care, management, recovery and prognosis. Continue sliding scale insulin coverage for now. PT/OT to evaluate the patient. If renal function continues to worsen, will obtain nephrology consultation. In the interim, will obtain renal ultrasound. CODE STATUS: DNR CCA with intubation. Will plan to reach out to the patient's healthcare POA to discuss CODE STATUS and goals of care. TIME: 40 minutes of critical care time, independent of procedures, was spent addressing the patient's acute combined respiratory failure, toxic/metabolic encephalopathy, humeral head fracture, chronic kidney disease, review of all data and collaboration with the care team. HPI Consult Data Date of Consult: 10/08/25 HPI Narrative Reason for Consultation: Respiratory failure HPI Narrative: The patient is a 80-year-old female, with a history as outlined below, who presented to the emergency department via EMS on October 07 from her [facility] facility with altered mental status and oropharyngeal bleeding. According to EMS, there was initial concern for CVA. Her blood glucose was noted to be 137. The patient had just been discharged from the hospital on September 23 after having been admitted for 5 days with C. difficile colitis and acute on chronic kidney disease. In addition to the aforementioned, the patient's medical history is significant for hypertension, diabetes mellitus, GERD and anxiety/depression. On presentation to the emergency department, the patient was noted to be afebrile and hemodynamically stable. She was initially documented to be saturating 88% on 4 L via the nasal cannula. Laboratory evaluation revealed a white blood cell count of 22,000. Hemoglobin was noted to be 9.9 g/dL. Platelet count was normal at 356,000. Coagulation profile was unremarkable. Initial arterial blood gas was notable for a pH of 7.32 with a pCO2 of 48 and pO2 of 75. Chemistry profile was notable for a creatinine of 3.5. Urine analysis was unremarkable. Initial chest x-ray was suboptimal without an acute cardiopulmonary process identified. Initial shoulder x-ray demonstrated no fracture or dislocation. On my review of the paperwork obtained from the patient's fpc facility, there is a document indicating a CODE STATUS of DNR comfort care, which was not signed by the patient. According to the emergency department provider, there was initial concern for sepsis. However, IV antimicrobials were never initiated, despite blood cultures being obtained. It appears that a CODE BLUE was called while the patient was still in the emergency department as the patient has become increasingly hypoxic and had blood coming from her mouth. It is unclear whether the patient was reevaluated while still in the emergency department, prior to her transfer to the medical intensive care unit. Nevertheless, on arrival to the ICU, there was immediate concern that the patient was not able to protect her airway. Therefore, following reevaluation of the patient and confirmation of CODE STATUS with the patient's healthcare POA, the decision was made to proceed with intubation. A CT scan of the chest was then ordered which demonstrated possible atelectasis versus consolidation in the lower lobes bilaterally along with an acute displaced comminuted fracture of the right humeral head. [facility] Medical History Microscopic colitis Anemia CKD (chronic kidney disease) Osteoarthritis History of irritable colon Essential hypertension Dyslipidemia Anxiety Diabetes Kidney disease GI bleed Non-smoker Upper GI bleed Duodenal ulcer Candidiasis of breast History of anemia History of hypertension History of chronic kidney disease History of hyperlipidemia History of diabetes insipidus Candidal intertrigo Stage 3b chronic kidney disease (CKD) Osteoporosis Hyperlipidemia Anemia Hypertension Lymphedema Morbid obesity History of gastroesophageal reflux (GERD) Type II diabetes mellitus Home Medications ?Medication ?Instructions ?Recorded ?Last Taken ?Type folic acid 1 mg tablet 1 mg PO DAILY@0800 SUPPLEMEN T 01/21/17 05/03/25 History calcium 600 mg (as 1 tab PO DAILY SUPPLEMENT 05/03/25 History carbonate)-vitamin D3 20 mcg (800 unit) tablet (Caltrate with Vitamin D3) citalopram 20 mg tablet 20 mg PO QHS mental health 0 01/22/22 05/03/25 History pentoxifylline 400 mg 400 mg PO DAILY PAD 02/15/24 05/03/25 History tablet,extended release vitamin E 268 mg (400 unit) capsule 268 mg PO DAILY Ziegler pplement 02/15/24 05/03/25 History ferrous sulfate 325 mg (65 mg 325 mg PO DAILY Suppleme nt 06/05/24 05/03/25 History iron) tablet (FeroSul) amlodipine 5 mg tablet 5 mg PO DAILY 30 days #30 ta bs 01/11/25 05/03/25 Rx aspirin 81 mg capsule 81 mg PO DAILY 05/04/2503/23 History insulin glargine 100 unit/mL (3 12 unit subcut BID 04/2305/03/25 History mL) subcutaneous pen (Lantus Solostar U-100 Insulin) pantoprazole 40 mg tablet,delayed 40 mg PO DAILY 05/0405/03/25 History release acetaminophen 325 mg tablet 650 mg (2 x 325 mg) PO Q6H PRN PRN 05/09/25 Unknown Rx Pain 1-10 Or Fever >100.7 #0 tabs alendronate 70 mg tablet 70 mg PO QWEEK #14 tabs 08/30 06/23 Unknown Rx budesonide 3 mg 6 mg PO QAM Stomach Lining 1 11/18/24 Unknown History capsule,delayed,extended release metoprolol succinate 50 mg 100 mg PO DAILY 09/18/25 Un known History tablet,extended release 24 hr potassium chloride 20 mEq 20 meq PO DAILY 09/18/25 Unk nown History tablet,extended release(part/cryst) nystatin 100,000 unit/gram topical 1 applic topical BI D 10/07/25 Unknown History powder (Nystop) Allergy/AdvReac Type Severity Reaction Status Date / Time chlorhexidine Allergy Unknown Verified 10/07/25 08:41 Iodinated Contrast Media Allergy Other Verified 10/07/25 08:41 (CONTRASTS) iodine Allergy Unknown Verified 10/07/25 08:41 latex Allergy Rash Verified 10/07/25 08:41 vancomycin AdvReac Intermediate Other Verified 10/07/25 08:41 Family History Other Diabetes Surgical History History of elbow surgery History of tonsillectomy and adenoidectomy 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 Social History household members: none Smoking Status: Never smoker alcohol intake: never substance use type: does not use ROS Review of Systems ROS Unobtainable: due to endotracheal tube Physical Exam Const Constitutional Narrative: Intubated, sedated and mechanically ventilated. No ventilator dyssynchrony noted. Morbidly obese. HEENT normocephalic and head/scalp atraumatic Mouth: endotracheal tube in place and OG tube in place Eyes PERRL, EOMs intact bilaterally and conjunctivae normal Neck supple General: trachea midline Chest inspection of chest normal Resp Auscultation: diminished lung sounds; Negative for rales, rhonchi or wheezes Cardio regular rate and regular rhythm GI normal to inspection, nondistended, normoactive bowel sounds Extremity no clubbing, cyanosis or edema Skin General Skin Exam: venous stasis and dermatitis Neuro Sensorium / Orientation: sedated on vent Lab / Micro Data 10/08/25 03:50 10/08/25 03:50 Labs: Laboratory Results - last 24 hr 10/07/25 09:07: Urine Color Yellow, Urine Clarity Clear, Urine pH 6.5, Ur Specific [place] 1.010, Urine Protein 30 H, Urine Glucose (UA) NEGATIVE, Urine Ketones Negative, Urine Occult Blood 25 H, Urine Nitrite Negative, Urine Bilirubin Negative, Urine Urobilinogen Normal, Ur Leukocyte Esterase Negative, Urine RBC 0 SEEN, Urine WBC 0 SEEN, Ur Squamous Epith Cells 0 SEEN, Urine Bacteria 0 SEEN, Urine Mucus 0 SEEN 10/07/25 09:08: WBC 22.6 H, RBC 3.51 L, Hgb 9.9 L, Hct 32.0 L, MCV 91.2, MCH 28.2, MCHC 30.9 L, RDW Std Deviation 51.4 H, RDW Coeff of [place] 15.3 H, Plt Count 356, MPV 8.9, Immature Gran % (Auto) 1.200 H, Neut % (Auto) 81.1 H, Lymph % (Auto) 3.4 L, [place] % (Auto) 11.8 H, Eos % (Auto) 2.0, Baso % (Auto) 0.5, A bsolute Neuts (auto) 18.3 H, Absolute Lymphs (auto) 0.77 L, Differential Comment SCANNED, PT 14.4, INR 1.1, APTT 31.5, Sodium 141, Potassium 3.6, Chloride 105, Carbon Dioxide 24.4, Anion Gap 12, BUN 41 H, Creatinine 3.55 H, Estim Creat Clear Calc 14.67 L, Est GFR (MDRD) Non-Af 13 L, BUN/Creatinine Ratio 11.5, G lucose 119 H, Lactic Acid 1.2, Calcium 7.0 L, Total Bilirubin 0.45, AST 21, ALT 12, Alkaline Phosphatase 79, Total Protein 6.4, Albumin 3.5, Globulin 2.8, Albumin/Globulin Ratio 1.2 10/07/25 12:17: POC Glucose 72 L 10/07/25 14:22: POC Glucose 96 10/07/25 21:37: POC Glucose 64 L 10/07/25 22:26: POC Glucose 94 10/08/25 03:50: WBC 19.9 H, RBC 2.97 L, Hgb 8.5 L, Hct 27.2 L, MCV 91.6, MCH 28.6, MCHC 31.3 L, RDW Std Deviation 51.4 H, RDW Coeff of [place] 15.3 H, Plt Count 284, MPV 9.4, Immature Gran % (Auto) 1.100 H, Neut % (Auto) 75.2 H, Lymph % (Auto) 4.7 L, [place] % (Auto) 16.7 H, Eos % (Auto) 1.7, Baso % (Auto) 0.6, A bsolute Neuts (auto) 15.0 H, Absolute Lymphs (auto) 0.93, Nucleated RBC % 0, Differential Comment SCANNED, Sodium 142, Potassium 3.4, Chloride 107, Carbon Dioxide 21.5, Anion Gap 14, BUN 41 H, Creatinine 3.86 H, Estim Creat Clear Calc 12.81 L, Est GFR (MDRD) Non-Af 11 L, BUN/Creatinine Ratio 10.6, Glucose 88, Hemoglobin A1c 5.7, Calcium 7.5 L, Total Creatine Kinase 329 H, Triglycerides 115, TSH 1.690 Micro: Microbiology 10/07/25 09:52 Mucosa - Nose SARS-CoV-2, Influenza & RSV (PCR) - Final ABG Data ABG results: ABG 10/07/25 10/07/25 11:20 16:54 Specimen Type ART ART Sample Site L Radial R Brach pH 7.32 L 7.36 Bicarbonate Actual 24.9 24.6 Total CO2 26 26 Base Excess -1 -1 O2 Saturation 94 90 L O2 % 6.0 50.0 ABG pCO2 48.1 H 43.4 ABG pO2 75 61 L Michael Test Positive Respiration Rate 14 O2 Delivery Device Cannula Adult Vent Vent Mode Not entered AC Tidal Volume 450.0 POC PEEP 5 Imaging Radiology Impression Chest X-Ray 10/07/25 09:50 IMPRESSION: Hypoventilation without acute cardiopulmonary abnormality. Reading Location: [facility] Humerus X-Ray 10/07/25 09:55 IMPRESSION: NO ACUTE FRACTURE OR DISLOCATION. Moderate osteoarthritis of the left acromioclavicular and left glenohumeral joints. Reading Location: [facility] Shoulder X-Ray 10/07/25 09:55 IMPRESSION: No fracture or dislocation is identified. Reading Location: [facility] Chest CT 10/07/25 14:56 IMPRESSION: 1. Endotracheal and enteric tubes appear appropriately positioned. 2. Dependent atelectasis and/or consolidation in the bilateral lower lobes. 3. Mild cardiomegaly. No pleural effusions or significant lymphadenopathy. 4. Small subcentimeter nonobstructive right renal stone. 5. Acute displaced comminuted fracture of the right humeral head/surgical neck. Reading Location: [id number] Chest X-Ray 10/07/25 15:20 IMPRESSION: 1. Low ET tube terminating 1.1 cm above the ventura. Withdrawal of approximately 3.0 cm is suggested. 2. New left inferior lung opacity, likely atelectasis or aspiration. 3. Abnormal right humeral head and neck contour, partially obscured by overlying x-ray labels. This appears new since the prior study. A right shoulder series is recommended to better evaluate. Reading Location: [id number] Charges/Coding Procedures Hospitalists Procedures: 51420 Critical Care 1st Hr
--- NOTE | 2025-10-08 05:50 | RAD_ITS ---
PROCEDURE: CHEST 1 VIEW (PORTABLE) 10/08/2025 REASON FOR EXAM: RESPIRATORY FAILURE TECHNIQUE: Frontal view of the chest. COMPARISON: CT scan on 10/07/2025. FINDINGS: Endotracheal tube is in good position. Enteric feeding tube is in good position. Bilateral basilar atelectatic pulmonary changes/multifocal airspace disease of the lower lobes. There is no demonstrated pleural abnormality. Enlarged cardiac silhouette. Normal mediastinum and elijah. Normal visualized pulmonary arteries. Atheromatous plaques of the visualized aortic arch and descending thoracic aorta. Diffuse spondylosis of the visualized thoracic spine. Normal visualized ribs, clavicles. Degenerative joint disease. There is no demonstrated abnormality of the visualized soft tissue structures of the upper abdomen. RAD/Chest 1 View (Portable) IMPRESSION: Endotracheal tube is in good position. Enteric feeding tube is in good position. Bilateral basilar atelectatic pulmonary changes/multifocal airspace disease of the lower lobes. Reading [facility]
[2025-10-08 05:54] LABS: Allen Test Positive; Base Excess -3 mmol/L (-2 to +2); FI02 30.0; PEEP 5; PO2 45 mmHG (75-100); RR 14; SITE R Radial; SO2 81 % (94-98)
[2025-10-08] MEDS: TITRATION PARAMETER CHANGE 1 EACH IV (06:01)
[2025-10-08] MEDS: CHLORHEXIDINE GLUC 2% CLOTH 1 EACH TOWELETTE TOPICAL (06:01)
[2025-10-08] MEDS: Potassium Chloride Oral Tablet 20 MEQ GT (07:39)
[2025-10-08] MEDS: Chlorhexidine 15 ML PO ×2 (07:40→21:46)
--- NOTE | 2025-10-08 08:05 | PCM.PN.HOSP ---
Reason for Visit Chief Complaint: Confusion. Subjective Subjective Still on vent. More alert today. Objective Data Objective Data Vital Signs: Vital Signs Temp Pulse Resp BP Pulse Ox O2 Del Method O2 Flow Rate 37.9 C H 90 14 126/52 H 96 Mechanical Ventilator 15 10/08/25 07:00 10/08/25 07:29 10/08/25 07:02 10/08/25 07:00 10/08/25 07:02 10/08/25 07:00 10/07/25 14:45 FiO2 40 10/08/25 07:02 Oxygen Flow Rate (L/min) 15 Oxygen Delivery Method Mechanical Ventilator Weight: 100 kg Body Mass Index (BMI) 40.6 Intake & Output: Intake and Output for Last 24 Hours 10/06/25 10/07/25 10/08/25 23:59 23:59 23:59 Intake Total 1516.69 / 1571.46 370.53 / 370.53 Output Total 775 / 925 240 / 240 Balance 741.69 / 646.46 130.53 / 130.53 Lab / Micro Data 10/08/25 03:50 10/08/25 03:50 Labs: Laboratory Results - last 24 hr 10/07/25 09:07: Urine Color Yellow, Urine Clarity Clear, Urine pH 6.5, Ur Specific [place] 1.010, Urine Protein 30 H, Urine Glucose (UA) NEGATIVE, Urine Ketones Negative, Urine Occult Blood 25 H, Urine Nitrite Negative, Urine Bilirubin Negative, Urine Urobilinogen Normal, Ur Leukocyte Esterase Negative, Urine RBC 0 SEEN, Urine WBC 0 SEEN, Ur Squamous Epith Cells 0 SEEN, Urine Bacteria 0 SEEN, Urine Mucus 0 SEEN 10/07/25 09:08: WBC 22.6 H, RBC 3.51 L, Hgb 9.9 L, Hct 32.0 L, MCV 91.2, MCH 28.2, MCHC 30.9 L, RDW Std Deviation 51.4 H, RDW Coeff of [place] 15.3 H, Plt Count 356, MPV 8.9, Immature Gran % (Auto) 1.200 H, Neut % (Auto) 81.1 H, Lymph % (Auto) 3.4 L, [place] % (Auto) 11.8 H, Eos % (Auto) 2.0, Baso % (Auto) 0.5, Absolute Neuts (auto) 18.3 H, Absolute Lymphs (auto) 0.77 L, Differential Comment SCANNED, PT 14.4, INR 1.1, APTT 31.5, Sodium 141, Potassium 3.6, Chloride 105, Carbon Dioxide 24.4, Anion Gap 12, BUN 41 H, Creatinine 3.55 H, Estim Creat Clear Calc 14.67 L, Est GFR (MDRD) Non-Af 13 L, BUN/Creatinine Ratio 11.5, Glucose 119 H, Lactic Acid 1.2, Calcium 7.0 L, Total Bilirubin 0.45, AST 21, ALT 12, Alkaline Phosphatase 79, Total Protein 6.4, Albumin 3.5, Globulin 2.8, Albumin/Globulin Ratio 1.2 10/07/25 12:17: POC Glucose 72 L 10/07/25 14:22: POC Glucose 96 10/07/25 21:37: POC Glucose 64 L 10/07/25 22:26: POC Glucose 94 10/08/25 03:50: WBC 19.9 H, RBC 2.97 L, Hgb 8.5 L, Hct 27.2 L, MCV 91.6, MCH 28.6, MCHC 31.3 L, RDW Std Deviation 51.4 H, RDW Coeff of [place] 15.3 H, Plt Count 284, MPV 9.4, Immature Gran % (Auto) 1.100 H, Neut % (Auto) 75.2 H, Lymph % (Auto) 4.7 L, [place] % (Auto) 16.7 H, Eos % (Auto) 1.7, Baso % (Auto) 0.6, Absolute Neuts (auto) 15.0 H, Absolute Lymphs (auto) 0.93, Nucleated RBC % 0, Differential Comment SCANNED, Sodium 142, Potassium 3.4, Chloride 107, Carbon Dioxide 21.5, Anion Gap 14, BUN 41 H, Creatinine 3.86 H, Estim Creat Clear Calc 12.81 L, Est GFR (MDRD) Non-Af 11 L, BUN/Creatinine Ratio 10.6, Glucose 88, Hemoglobin A1c 5.7, Calcium 7.5 L, Total Creatine Kinase 329 H, Triglycerides 115, TSH 1.690 10/08/25 06:41: POC Glucose 79 Micro: Microbiology 10/07/25 09:52 Mucosa - Nose SARS-CoV-2, Influenza & RSV (PCR) - Final ABG Data ABG results: ABG 10/07/25 10/07/25 10/08/25 11:20 16:54 05:51 Specimen Type ART ART ART Sample Site L Radial R Brach R Radial pH 7.32 L 7.36 7.40 Bicarbonate Actual 24.9 24.6 21.8 L Total CO2 26 26 23 Base Excess -1 -1 -3 L O2 Saturation 94 90 L 81 L O2 % 6.0 50.0 30.0 ABG pCO2 48.1 H 43.4 35.5 ABG pO2 75 61 L 45 L Michael Test Positive Positive Respiration Rate 14 14 O2 Delivery Device Cannula Adult Vent ET Tube Vent Mode Not entered [facility] Tidal Volume 450.0 450.0 POC PEEP 5 5 Radiography Diagnostic Testing: Radiology Impression Chest X-Ray 10/07/25 09:50 IMPRESSION: Hypoventilation without acute cardiopulmonary abnormality. Reading Location: [facility] Humerus X-Ray 10/07/25 09:55 IMPRESSION: NO ACUTE FRACTURE OR DISLOCATION. Moderate osteoarthritis of the left acromioclavicular and left glenohumeral joints. Reading Location: [facility] Shoulder X-Ray 10/07/25 09:55 IMPRESSION: No fracture or dislocation is identified. Reading Location: [facility] Chest CT 10/07/25 14:56 IMPRESSION: 1. Endotracheal and enteric tubes appear appropriately positioned. 2. Dependent atelectasis and/or consolidation in the bilateral lower lobes. 3. Mild cardiomegaly. No pleural effusions or significant lymphadenopathy. 4. Small subcentimeter nonobstructive right renal stone. 5. Acute displaced comminuted fracture of the right humeral head/surgical neck. Reading Location: [id number] Chest X-Ray 10/07/25 15:20 IMPRESSION: 1. Low ET tube terminating 1.1 cm above the ventura. Withdrawal of approximately 3.0 cm is suggested. 2. New left inferior lung opacity, likely atelectasis or aspiration. 3. Abnormal right humeral head and neck contour, partially obscured by overlying x-ray labels. This appears new since the prior study. A right shoulder series is recommended to better evaluate. Reading Location: [facility] Chest X-Ray 10/08/25 05:50 IMPRESSION: Endotracheal tube is in good position. Enteric feeding tube is in good position. Bilateral basilar atelectatic pulmonary changes/multifocal airspace disease of the lower lobes. Reading Location: [place] [id number] Rhythm Strip Rhythm Strip: Junctional rhythm Rate: 71 Ectopy: None Physical Exam Const Constitutional Narrative: awake on vent. establishes eye contact. intubated Resp normal respiratory effort and no retractions Cardio regular rate, regular rhythm, S1 normal heart sound and S2 normal heart sound GI normal to inspection, nondistended, normoactive bowel sounds, soft to palpation, non-tender and non-distended Neuro no focal motor deficits Assessment & Plan Assessment/Plan (1) Acute hypercapnic respiratory failure: PLAN: Intubated 10/07 for respiratory acidosis and airway protection ATX and consolidation on CT pulmonary consult has been having a fever, so started on empiric abx with pip/tazo. Low threshold to check for C.diff given recent infection and now on abx. (2) Metabolic encephalopathy: PLAN: Pry secondary to CO2 narcosis. Patient presented with confusion. When I saw her she was more somnolent and that at least was partially attributable to the morphine that she had just received in the ED However, status worsened and patient required intubation. (3) Humerus fracture: PLAN: Patient injured her arm trying to get into an arm chair. From the niece's description sounds like it may have been dislocated given that was described as being out of place but x-rays here were unremarkable. Patient have significant pain. She had been in a sling at the facility and we will place her back in a sling and pain control with the exception of narcotics and gabapentin. Additionally hold off on NSAIDs given her CKD. Ortho consult. CT chest showed acute displaced comminuted fracture of the right humeral head/surgical neck. NWB RUE when able to work with therapy. 25-OH d level low at 20.6. Start ergocalciferol 50,000 units weekly x8 when able to take oral. PLAN: Plan Obesity class III: Complicates care and recovery Diabetes mellitus type 2: Continue with glargine. Sign scale insulin. Check an A1c. Recent C. difficile: Expectant monitoring at this time. 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 Will monitor. If it continues to worsen may need to consult nephrology. VTE prophylaxis with heparin Code status: DNRCCA, intubation ok. Charges/Coding Visit Charges Inpatient E&M: 32545 Subs Hosp L3
[2025-10-08] MEDS: Pantoprazole Sodium 40 MG in 0.9% Normal Saline (100mL MB+) 100 ML 300 MG IV ×2 (08:48→21:50)
[2025-10-08] MEDS: Piperacil/Tazobactam 3.375 GM in 0.9% Normal Saline (50mL MB+) 50 ML IV ×2 (09:19→21:31)
[2025-10-08 09:25] LABS: Allen Test Positive; Base Excess -3 mmol/L (-2 to +2); FI02 40.0; PEEP 5; PO2 56 mmHG (75-100); SITE L Radial; SO2 87 % (94-98)
--- NOTE | 2025-10-08 09:26 | US_ITS ---
PROCEDURE: KIDNEY AND BLADDER 10/08/2025 REASON FOR EXAM: OSVALDO ON CKD TECHNIQUE: Procedure Code: USKI Modality: US Procedure: KIDNEY AND BLADDER COMPARISON: February 16, 2024. FINDINGS: Kidneys: Normal renal sizes, parenchymal thicknesses, and echotextures. [place]: No evidence of hydronephrosis. Cysts or Masses: No cysts or large solid renal masses. Other: RIGHT Kidney Size: 9.2 cm x 4 cm x 4.7 cm Cortical Thickness (if discernible): 14 mm (>6mm is normal) LEFT Kidney Size: 7.9 cm x 4.6 cm x 4.5 cm Cortical Thickness (if discernible): 11 mm (>6mm is normal) A Roberts catheter is seen within the urinary bladder. US/Kidney and Bladder IMPRESSION: Mild left renal atrophy. No evidence of hydronephrosis. Reading Location: [place] [id number]
--- NOTE | 2025-10-08 09:30 | RAD_ITS ---
PROCEDURE: SHOULDER MIN 2 VIEWS 10/08/2025 REASON FOR EXAM: RULE OUT FRACTURE TECHNIQUE: Procedure Code: RADSH Modality: DX Procedure: SHOULDER MIN 2 VIEWS Laterality: Right shoulder. COMPARISON: None FINDINGS: There is a transverse fracture through the surgical neck of the proximal right humerus with evidence of lateral displacement of the fractured fragment. An endotracheal tube as well as a nasogastric tube are seen. A right-sided PICC line catheter is present. RAD/Shoulder min 2 Views IMPRESSION: Transverse fracture through the surgical neck of the proximal right humerus wit h lateral displacement of the humeral head. Reading Location: [place] [address]
[2025-10-08 09:39] LABS: Vitamin D,25 Hydroxy 20.6 ng/mL (30-100)
--- NOTE | 2025-10-08 10:41 | CASEMGMT ---
Discharge Planning Updates sent via [facility] to [facility] [place]. Kortney Roberto DC Planning Asst.
--- NOTE | 2025-10-08 12:46 | CON.PCM_ITS ---
Assessment & Plan Assessment/Plan (1) Proximal humerus fracture: QUALIFIERS: Encounter type: initial encounter Fracture type: c losed Fracture alignment: displaced Laterality: right Fracture morphology: o ther fracture Qualified Code(s): S42.291A - Other displaced fracture of upper end of right humerus, initial encounter for closed fracture PLAN: Plan Patient does have a comminuted proximal humerus fracture on the right involving the surgical neck and greater tuberosity her bone appears very osteopenic and does not appear to be a good candidate for surgical fixation. If surgery was warranted we would be looking more at reverse shoulder arthroplasty. Given her current medical status and multiple medical comorbidities this is not an option right now. I did speak with her niece Letha Seth, we agreed we will proceed conservatively we will follow the fracture in a few weeks (2-3) if she is medically doing better further conversation about surgical intervention could be had vs continued conservative treatment, which may likely be ideal here. In the meantime nonweightbearing right upper extremity. Encourage elbow wrist hand and finger once that she is medically optimized and able to comply. HPI Consult Data Date of Consult: 10/08/25 HPI Narrative HPI Narrative: AZUL NAVARRETE, is a 80 F who presents from a nursing facility with recent history of C. difficile end-stage renal disease history of GI bleed morbid obesity diabetes mellitus was sent to the ER for altered mental status. I did speak with the niece Letha Seth, who was able to provide some history she is her power of assistant district attorney. She states that she was told the patient's left arm was injured during a transfer or a pop was felt. She was placed in a left arm sling. 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 The patient is right-hand dominant but she states she was using her right shoulder. However upon review of a CT scan of her chest which was done last evening there was found to be a comminuted proximal humerus fracture of the right side. Patient developed a respiratory failure and was transferred to the ICU for which she is currently still on the ventilator. She is arousable and does state that her right shoulder is giving her pain with nodding. PENDING SALE TO [facility] Medical History Microscopic colitis Anemia CKD (chronic kidney disease) Osteoarthritis History of irritable colon Essential hypertension Dyslipidemia Anxiety Diabetes Kidney disease GI bleed Non-smoker Upper GI bleed Duodenal ulcer Candidiasis of breast History of anemia History of hypertension History of chronic kidney disease History of hyperlipidemia History of diabetes insipidus Candidal intertrigo Stage 3b chronic kidney disease (CKD) Osteoporosis Hyperlipidemia Anemia Hypertension Lymphedema Morbid obesity History of gastroesophageal reflux (GERD) Type II diabetes mellitus Home Medications ?Medication ?Instructions ?Recorded ?Last Taken ?Type folic acid 1 mg tablet 1 mg PO DAILY@0800 SUPPLEMEN T 01/21/17 05/03/25 History calcium 600 mg (as 1 tab PO DAILY SUPPLEMENT 05/03/25 History carbonate)-vitamin D3 20 mcg (800 unit) tablet (Caltrate with Vitamin D3) citalopram 20 mg tablet 20 mg PO QHS mental health 0 01/22/22 05/03/25 History pentoxifylline 400 mg 400 mg PO DAILY PAD 02/15/24 05/03/25 History tablet,extended release vitamin E 268 mg (400 unit) capsule 268 mg PO DAILY Ziegler pplement 02/15/24 05/03/25 History ferrous sulfate 325 mg (65 mg 325 mg PO DAILY Suppleme nt 06/05/24 05/03/25 History iron) tablet (FeroSul) amlodipine 5 mg tablet 5 mg PO DAILY 30 days #30 ta bs 01/11/25 05/03/25 Rx aspirin 81 mg capsule 81 mg PO DAILY 05/04/2503/23 History insulin glargine 100 unit/mL (3 12 unit subcut BID 04/2305/03/25 History mL) subcutaneous pen (Lantus Solostar U-100 Insulin) pantoprazole 40 mg tablet,delayed 40 mg PO DAILY 05/0405/03/25 History release acetaminophen 325 mg tablet 650 mg (2 x 325 mg) PO Q6H PRN PRN 05/09/25 Unknown Rx Pain 1-10 Or Fever >100.7 #0 tabs alendronate 70 mg tablet 70 mg PO QWEEK #14 tabs 08/30 06/23 Unknown Rx budesonide 3 mg 6 mg PO QAM Stomach Lining 1 11/18/24 Unknown History capsule,delayed,extended release metoprolol succinate 50 mg 100 mg PO DAILY 09/18/25 Un known History tablet,extended release 24 hr potassium chloride 20 mEq 20 meq PO DAILY 09/18/25 Unk nown History tablet,extended release(part/cryst) nystatin 100,000 unit/gram topical 1 applic topical BI D 10/07/25 Unknown History powder (Nystop) Allergy/AdvReac Type Severity Reaction Status Date / Time chlorhexidine Allergy Unknown Verified 10/07/25 08:41 Iodinated Contrast Media Allergy Other Verified 10/07/25 08:41 (CONTRASTS) iodine Allergy Unknown Verified 10/07/25 08:41 latex Allergy Rash Verified 10/07/25 08:41 vancomycin AdvReac Intermediate Other Verified 10/07/25 08:41 Family History Other Diabetes Surgical History History of elbow surgery History of tonsillectomy and adenoidectomy 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 Social History household members: none Smoking Status: Never smoker alcohol intake: never substance use type: does not use Physical Exam Const Constitutional Narrative: Arousable but unable unable to communicate as she is on the ventilator she does nod she cannot comply with neurologic testing. Extremity Extremity Narrative: She is in restraints there is no ecchymosis or open wounds around the shoulder there is no significant swelling around the shoulder she does have very frail friable skin skin her compartments are soft she is unable to extend her wrist or fingers upon command on either side. palpable radial pulse Lab / Micro Data 10/08/25 03:50 10/08/25 03:50 Labs: Laboratory Results - last 24 hr 10/07/25 14:22: POC Glucose 96 10/07/25 21:37: POC Glucose 64 L 10/07/25 22:26: POC Glucose 94 10/08/25 03:50: WBC 19.9 H, RBC 2.97 L, Hgb 8.5 L, Hct 27.2 L, MCV 91.6, MCH 28.6, MCHC 31.3 L, RDW Std Deviation 51.4 H, RDW Coeff of Juan Diego 15.3 H, Plt Count 284, MPV 9.4, Immature Gran % (Auto) 1.100 H, Neut % (Auto) 75.2 H, Lymph % (Auto) 4.7 L, Cecil % (Auto) 16.7 H, Eos % (Auto) 1.7, Baso % (Auto) 0.6, A bsolute Neuts (auto) 15.0 H, Absolute Lymphs (auto) 0.93, Nucleated RBC % 0, Differential Comment SCANNED, Sodium 142, Potassium 3.4, Chloride 107, Carbon Dioxide 21.5, Anion Gap 14, BUN 41 H, Creatinine 3.86 H, Estim Creat Clear Calc 12.81 L, Est GFR (MDRD) Non-Af 11 L, BUN/Creatinine Ratio 10.6, Glucose 88, Hemoglobin A1c 5.7, Calcium 7.5 L, Total Creatine Kinase 329 H, Triglycerides 115, Vitamin D 25-Hydroxy 20.6 L, TSH 1.690 10/08/25 06:41: POC Glucose 79 10/08/25 08:43: Blood Type B POSITIVE, Antibody Screen NEGATIVE 10/08/25 10:54: POC Glucose 94 Micro: Microbiology 10/07/25 15:30 Sputum, Induced/Lukens Gram Stain - Final 10/07/25 15:30 Sputum, Induced/Lukens Respiratory Culture - Preliminary Alpha hemolytic organism 10/08/25 07:57 Nasal Secretion MRSA (PCR) - Final 10/07/25 09:07 Urine, Catheterized Urine Culture - Preliminary Culture exhibits no growth. 10/07/25 09:52 Mucosa - Nose SARS-CoV-2, Influenza & RSV (PCR) - Final ABG Data ABG results: ABG 10/07/25 10/08/25 10/08/25 16:54 05:51 09:22 Specimen Type ART ART ART Sample Site R Brach R Radial L Radial pH 7.36 7.40 7.35 Bicarbonate Actual 24.6 21.8 L 23.0 Total CO2 26 23 24 Base Excess -1 -3 L -3 L O2 Saturation 90 L 81 L 87 L O2 % 50.0 30.0 40.0 ABG pCO2 43.4 35.5 41.7 ABG pO2 61 L 45 L 56 L Michael Test Positive Positive Respiration Rate 14 14 O2 Delivery Device Adult Vent ET Tube Adult Vent Vent Mode AC AC CPAP/PS Tidal Volume 450.0 450.0 POC PEEP 5 5 5 Rhythm Strip Rhythm Strip: Junctional rhythm Rate: 71 Ectopy: None Imaging Radiology Impression Chest CT 10/07/25 14:56 IMPRESSION: 1. Endotracheal and enteric tubes appear appropriately positioned. 2. Dependent atelectasis and/or consolidation in the bilateral lower lobes. 3. Mild cardiomegaly. No pleural effusions or significant lymphadenopathy. 4. Small subcentimeter nonobstructive right renal stone. 5. Acute displaced comminuted fracture of the right humeral head/surgical neck. Reading Location: [facility] Chest X-Ray 10/07/25 15:20 IMPRESSION: 1. Low ET tube terminating 1.1 cm above the ventura. Withdrawal of approximately 3.0 cm is suggested. 2. New left inferior lung opacity, likely atelectasis or aspiration. 3. Abnormal right humeral head and neck contour, partially obscured by overlying x-ray labels. This appears new since the prior study. A right shoulder series is recommended to better evaluate. Reading Location: [facility] Chest X-Ray 10/08/25 05:50 IMPRESSION: Endotracheal tube is in good position. Enteric feeding tube is in good position. Bilateral basilar atelectatic pulmonary changes/multifocal airspace disease of the lower lobes. [facility] Renal Ultrasound 10/08/25 09:26 IMPRESSION: Mild left renal atrophy. No evidence of hydronephrosis. [facility] Should[facility] X-Ray 10/08/25 09:30 IMPRESSION: Transverse fracture through the surgical neck of the proximal right humerus with lateral displacement of the humeral head. Reading Location: [facility]
--- NOTE | 2025-10-08 12:51 | CT_ITS ---
PROCEDURE: BRAIN/HEAD WITHOUT CONTRAST 10/08/2025 REASON FOR EXAM: CONFUSION Patient is intubated. TECHNIQUE: Procedure Code: CTBR Modality: CT Procedure: BRAIN/HEAD WITHOUT CONTRAST Coronal and Sagittal reconstruction series were provided. One or more dose reduction techniques were used (e.g., Automated exposure control, adjustment of the mA and/or kV according to patient size, use of iterative reconstruction technique. RADIATION DOSE SUMMARY: CTDlvol: 47.06 mGy DLP: 978.55 mGycm COMPARISON: June 05, 2024. FINDINGS: Brain: Low density in the periventricular white matter suggests mild chronic small vessel ischemic changes. CSF Spaces: Mild generalized cerebral atrophy Sinuses/Mastoids: Clear at visualized levels Bones: No bony abnormality is seen CT/Brain/Head without Contrast IMPRESSION: CHRONIC CHANGES. NO ACUTE FINDINGS. Reading Location: [place] [id number]
[2025-10-08] MEDS: 0.9% Normal Saline (250mL Bag) 250 ML 15 ML IV (21:22)
[2025-10-08] MEDS: Propofol 10MG/Ml 1,000 MG/100 ML Bottle 3 MG CONT INF (22:09)
[2025-10-09] VITALS (33 sets, daily range): BP systolic 104–149; BP diastolic 45–93; PULSE 85–120; RESP 12–25; TEMP 36.6–38.1; O2SAT 80–100; BMI 40.4
[2025-10-09] MEDS: 0.9% Normal Saline (250mL Bag) 250 ML 15 ML IV (01:50)
[2025-10-09] MEDS: fentaNYL drip 100 ML 5 MCG CONT INF (01:51)
[2025-10-09] MEDS: CHLORHEXIDINE GLUC 2% CLOTH 1 EACH TOWELETTE TOPICAL (01:54)
--- NOTE | 2025-10-09 05:24 | PCM.PN.INT ---
Assessment & Plan Assessment/Plan (1) Acute hypercapnic respiratory failure: PLAN: Plan RECOMMENDATIONS: 1. Proceed with a trial of extubation this morning. 2. Once extubated, wean supplemental oxygen to maintain saturations at or above 90%. 3. Continue empiric antimicrobials, pending infectious workup. 4. Medical management of humerus fracture per orthopedic surgery. 5. Lovenox for DVT prophylaxis. 6. Obtain nephrology consultation. 7. Encourage incentive spirometer use and mobilize patient as tolerated. IMPRESSIONS: 1. Acute hypoxemic and hypercapnic respiratory failure Most likely secondary to central respiratory depression induced by IV morphine administration in a patient with underlying renal insufficiency. As a consequence of this, the patient's airway became compromised and she did require emergent intubation. Follow-up CT scan demonstrated possible atelectasis versus infiltrate in the lung bases. Therefore, the patient was placed empirically on antimicrobials, pending infectious workup. Over the last 24 hours, the patient has improved from a clinical perspective. She was able to pass a spontaneous awakening and breathing trial this morning. She is alert and able to follow commands appropriately. Therefore, we will proceed with a trial of extubation. Once extubated, supplemental oxygen can be weaned to maintain saturations at or above 90%. 2. Toxic/metabolic encephalopathy Improved. Again, likely related to IV morphine administration. Recommend cautious use of opiates for pain control in this patient. 3. Recent fall with acute displaced fracture of the right humeral head Will defer management to orthopedic surgery. 4. History of chronic kidney disease/recent C. difficile colitis/hypertension/diabetes mellitus/GERD Complicates care, management, recovery and prognosis. Continue sliding scale insulin coverage for now. PT/OT to work with the patient. In light of the patient's worsening creatinine, will obtain nephrology consultation. CODE STATUS: DNR CCA without intubation. This decision was confirmed with the patient postextubation and was confirmed with the patient's healthcare POA. TIME: 37 minutes of critical care time, independent of procedures, was spent addressing the patient's acute combined respiratory failure, toxic/metabolic encephalopathy, humeral head fracture, chronic kidney disease, review of all data and collaboration with the care team. Subjective Subjective The patient was seen and examined at the bedside this morning. Events from the last 24 hours have been reviewed. The patient currently has a low-grade fever but remains otherwise hemodynamically stable on assist-control mode of mechanical ventilation with an FiO2 requirement of 30% and PEEP of 5. No overnight issues were identified by nursing staff. Following my initial evaluation of the patient, her sedation was was placed on hold and she subsequently completed a spontaneous breathing trial without complication. The patient was completely alert and able to follow commands appropriately. Therefore, the patient was extubated. Postextubation, I did have a discussion with the patient regarding her wishes to be reintubated if she were to decompensate from a respiratory perspective. The patient made it very clear to me that she would not want to be intubated again and placed on invasive mechanical ventilatory support. Therefore, the patient's CODE STATUS was updated to DNR CCA without intubation. The patient's POA was made aware of the decision by the patient as well. Objective Data Objective Data The patient's most recent lab work, culture data and imaging studies have all been personally reviewed. Surface echocardiogram from May 2025 demonstrated normal LV size and function with an ejection fraction of 65%. Blood, urine and sputum cultures are pending. Vital Signs: Vital Signs Temp Pulse Resp BP Pulse Ox O2 Del Method O2 Flow Rate 100.4 F H 93 16 118/47 L 97 Mechanical Ventilator 40 10/09/25 03:00 10/09/25 04:00 10/09/25 04:00 10/09/25 04:00 10/09/25 04:00 10/09/25 04:00 10/08/25 08:00 FiO2 30 10/09/25 04:00 Oxygen Flow Rate (L/min) 40 Oxygen Delivery Method Mechanical Ventilator Weight: 220 lb 7.396 oz Body Mass Index (BMI) 40.6 Intake & Output: Intake and Output for Last 24 Hours 10/07/25 10/08/25 10/09/25 23:59 23:59 23:59 Intake Total 1516.69 / 1571.46 1086.07 / 1090.07 153.50 / 153.50 Output Total 775 / 925 490 / 590 200 / 200 Balance 741.69 / 646.46 596.07 / 500.07 -46.50 / -46.50 Lab / Micro Data Attestation: I reviewed the patient's lab results. 10/09/25 07:43 10/09/25 07:43 Labs: Laboratory Results - last 24 hr 10/08/25 03:50: Vitamin D 25-Hydroxy 20.6 L 10/08/25 06:41: POC Glucose 79 10/08/25 08:43: Blood Type B POSITIVE, Antibody Screen NEGATIVE 10/08/25 10:54: POC Glucose 94 10/08/25 17:05: POC Glucose 111 H 10/08/25 21:19: POC Glucose 115 H Micro: Microbiology 10/07/25 15:30 Sputum, Induced/Lukens Gram Stain - Final 10/07/25 15:30 Sputum, Induced/Lukens Respiratory Culture - Preliminary Alpha hemolytic organism 10/08/25 07:57 Nasal Secretion MRSA (PCR) - Final 10/07/25 09:07 Urine, Catheterized Urine Culture - Preliminary Culture exhibits no growth. 10/07/25 09:52 Mucosa - Nose SARS-CoV-2, Influenza & RSV (PCR) - Final ABG Data ABG results: ABG 10/08/25 10/08/25 05:51 09:22 Specimen Type ART ART Sample Site R Radial L Radial pH 7.40 7.35 Bicarbonate Actual 21.8 L 23.0 Total CO2 23 24 Base Excess -3 L -3 L O2 Saturation 81 L 87 L O2 % 30.0 40.0 ABG pCO2 35.5 41.7 ABG pO2 45 L 56 L Michael Test Positive Positive Respiration Rate 14 O2 Delivery Device ET Tube Adult Vent Vent Mode AC CPAP/PS Tidal Volume 450.0 POC PEEP 5 5 Radiography Diagnostic Testing: Radiology Impression Chest X-Ray 10/08/25 05:50 IMPRESSION: Endotracheal tube is in good position. Enteric feeding tube is in good position. Bilateral basilar atelectatic pulmonary changes/multifocal airspace disease of the lower lobes. [facility] Ren[facility] Ultrasound 10/08/25 09:26 IMPRESSION: Mild left renal atrophy. No evidence of hydronephrosis. Reading Location: [facility] Shoulder X-Ray 10/08/25 09:30 IMPRESSION: Transverse fracture through the surgical neck of the proximal right humerus with lateral displacement of the humeral head. Reading Location: [facility] 10/08/25 12:51 IMPRESSION: CHRONIC CHANGES. NO ACUTE FINDINGS. Reading Location: [facility] Rhythm Strip Rhythm Strip: Junctional rhythm Rate: 71 Ectopy: None Physical Exam Const Constitutional Narrative: Remains intubated and mechanically ventilated. Currently tolerating spontaneous mode of mechanical ventilation. HEENT normocephalic and head/scalp atraumatic Mouth: endotracheal tube in place and OG tube in place Eyes PERRL, EOMs intact bilaterally and conjunctivae normal Neck supple General: trachea midline Chest inspection of chest normal Resp Auscultation: diminished lung sounds; Negative for rales, rhonchi or wheezes Cardio regular rate and regular rhythm GI normal to inspection, nondistended, normoactive bowel sounds Extremity no clubbing, cyanosis or edema Skin General Skin Exam: venous stasis and dermatitis Neuro Neuro Narrative: Alert and able to follow commands appropriately. Charges/Coding Procedures Hospitalists Procedures: 60834 Critical Care 1st Hr
[2025-10-09] MEDS: Potassium Chloride Oral Tablet 20 MEQ GT (07:24)
[2025-10-09] MEDS: Chlorhexidine 15 ML PO (07:25)
--- NOTE | 2025-10-09 07:53 | PN.HOSP_ITS ---
Reason for Visit Chief Complaint: Confusion. Subjective Subjective Extubated today. Objective Data Objective Data Vital Signs: Vital Signs Temp Pulse Resp BP Pulse Ox O2 Del Method O2 Flow Rate 37.9 C H 98 15 140/57 H 93 Mechanical Ventilator 40 10/09/25 07:00 10/09/25 07:05 10/09/25 07:05 10/09/25 07:00 10/09/25 07:05 10/09/25 07:00 10/08/25 08:00 FiO2 30 10/09/25 07:00 Oxygen Flow Rate (L/min) 40 Oxygen Delivery Method Mechanical Ventilator Weight: 99.7 kg Body Mass Index (BMI) 40.4 Intake & Output: Intake and Output for Last 24 Hours 10/07/25 10/08/25 10/09/25 23:59 23:59 23:59 Intake Total 1516.69 / 1571.46 1086.07 / 1090.07 172.50 / 172.50 Output Total 775 / 925 490 / 590 250 / 250 Balance 741.69 / 646.46 596.07 / 500.07 -77.50 / -77.50 Lab / Micro Data 10/09/25 07:43 10/09/25 07:43 Labs: Laboratory Results - last 24 hr 10/08/25 03:50: Vitamin D 25-Hydroxy 20.6 L 10/08/25 08:43: Blood Type B POSITIVE, Antibody Screen NEGATIVE 10/08/25 10:54: POC Glucose 94 10/08/25 17:05: POC Glucose 111 H 10/08/25 21:19: POC Glucose 115 H Micro: Microbiology 10/07/25 15:30 Sputum, Induced/Lukens Gram Stain - Final 10/07/25 15:30 Sputum, Induced/Lukens Respiratory Culture - Preliminary Alpha hemolytic organism 10/08/25 07:57 Nasal Secretion MRSA (PCR) - Final 10/07/25 09:07 Urine, Catheterized Urine Culture - Preliminary Culture exhibits no growth. 10/07/25 09:52 Mucosa - Nose SARS-CoV-2, Influenza & RSV (PCR) - Final ABG Data ABG results: ABG 10/08/25 09:22 Specimen Type ART Sample Site L Radial pH 7.35 Bicarbonate Actual 23.0 Total CO2 24 Base Excess -3 L O2 Saturation 87 L O2 % 40.0 ABG pCO2 41.7 ABG pO2 56 L Michael Test Positive O2 Delivery Device Adult Vent Vent Mode CPAP/PS POC PEEP 5 Radiography Diagnostic Testing: Radiology Impression Renal Ultrasound 10/08/25 09:26 IMPRESSION: Mild left renal atrophy. No evidence of hydronephrosis. Reading Location: [facility] Shoulder X-Ray 10/08/25 09:30 IMPRESSION: Transverse fracture through the surgical neck of the proximal right humerus with lateral displacement of the humeral head. Reading Location: [facility] 10/08/25 12:51 IMPRESSION: CHRONIC CHANGES. NO ACUTE FINDINGS. Reading Location: [facility] Rhythm Strip Rhythm Strip: Junctional rhythm Rate: 71 Ectopy: None Physical Exam Const alert and no apparent distress Constitutional Narrative: Alert. Interactive. Cooperative. HEENT head/scalp atraumatic and moist oral mucous membranes Resp normal respiratory effort, no retractions, no use of accessory muscles and clear to auscultation bilaterally Cardio regular rate, regular rhythm, S1 normal heart sound and S2 normal heart sound GI normal to inspection, nondistended, normoactive bowel sounds, soft to palpation, non-tender and non-distended Extremity normal to inspection and full ROM Neuro Sensorium / Orientation: awake, alert, oriented to person and oriented to place Assessment & Plan Assessment/Plan (1) Acute hypercapnic respiratory failure: PLAN: Intubated 10/07 for respiratory acidosis and airway protection. Extubated on 10/09 [address]X [address] consolidation on CT pulmonary consult has been having a fever, so started on empiric abx with pip/tazo. Low threshold to check for C.diff given recent infection and now on abx. SCx showing normal respiratory den. (2) Metabolic encephalopathy: PLAN: Pry secondary to CO2 narcosis. Patient presented with confusion. When I saw her she was more somnolent and that at least was partially attributable to the morphine that she had just received in the ED However, status worsened and patient required intubation. Head CT negative for any acute process. (3) Humerus fracture: PLAN: Patient injured her arm trying to get into an arm chair. From the niece's description sounds like it may have been dislocated given that was described as being out of place but x-rays here were unremarkable. Patient have significant pain. She had been in a sling at the facility and we will place her back in a sling and pain control with the exception of narcotics and gabapentin. Additionally hold off on NSAIDs given her CKD. Ortho recs: not a good candidate for surgical care given osteopenia. Planning on conservative mgmt and follow up in 2-[address] weeks. NWB in RUE CT chest showed acute displaced comminuted fracture of the right humeral head/surgical neck. NWB RUE when able to work with therapy. 25-OH d level low at 20.6. Start ergocalciferol 50,000 units weekly x8 when able to take oral. PLAN: Plan Obesity class III: Complicates care and recovery Diabetes mellitus type 2: Continue with glargine. Sliding scale insulin. Check an A1c. Recent C. difficile: Expectant monitoring at this time. 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 Will monitor. If it continues to worsen may need to consult nephrology. VTE prophylaxis with heparin Code status: DNRCCA, intubation ok. Charges/Coding Visit Charges Inpatient E&M: 52741 Subs Hosp L2
[2025-10-09 07:57] LABS: Hematocrit 26.2 % (37-47); Hemoglobin 8.6 g/dL (12.0-15.0); Immature Granulocytes Count 0.300 X10^3/uL (0.0-0.0); Mean Corp Hgb Conc 32.8 g/dL (32-36); Mean Corpuscular Volume 90.3 fL (81-99); Mean Platelet Vol. 9.4 fl (6.2-12.0); NRBC Flagged by Analyzer 0 % (0-5); POSITIVE DIFFERENTIAL YES; Platelet Count 261 K/mm3 (150-450); RBC Distribution Width CV 15.6 % (11.6-14.6); RBC Distribution Width SD 51.5 fl (35.1-43.9); Red Blood Count 2.90 M/mm3 (4.2-5.4); White Blood Count 25.1 K/mm3 (4.4-11.0)
[2025-10-09 08:08] LABS: Differential Indicated SCAN CRITERIA MET
[2025-10-09 08:29] LABS: Anion Gap 15 (5-15); BUN 44 mg/dL (4-19); BUN/Creat Ratio 9.7 RATIO (10-20); Calcium,Total 7.6 mg/dL (7.6-11.0); Carbon Dioxide 19.5 mmol/L (21.0-32.0); Chloride 106 mmol/L (98-108); Estimated Creatinine Clearance 11.02 ml/min (50-250); Glucose 135 mg/dL (70-99); Potassium 4.0 mmol/L (3.3-5.1)
--- NOTE | 2025-10-09 08:34 | NURSING ---
Patient Extubated at 08:27am tolerated well placed on 2L NC.
[2025-10-09 08:37] LABS: Differential Comment SCANNED
[2025-10-09] MEDS: Pantoprazole Sodium 40 MG in 0.9% Normal Saline (100mL MB+) 100 ML 300 MG IV ×2 (09:18→21:29)
[2025-10-09] MEDS: Piperacil/Tazobactam 3.375 GM in 0.9% Normal Saline (50mL MB+) 50 ML IV ×2 (09:23→21:28)
--- NOTE | 2025-10-09 11:27 | CASEMGMT ---
Social Work- SW participated in interdisciplinary rounds with care team. Hospitalist provided updates on potential discharge timing. DCA notified. Pt precert to be started in the event of d/c readiness over the weekend. Plan: [facility], return, pend precert ANJELICA Crooks
--- NOTE | 2025-10-09 13:36 | PCM.CONS.R ---
Assessment & Plan Assessment/Plan (1) Acute kidney injury superimposed on chronic kidney disease: (2) CKD (chronic kidney disease) stage 4, GFR 15-29 ml/min: PLAN: Plan This is a pleasant 80-year-old female with past medical history significant for chronic kidney disease stage IV with baseline creatinine ranging around 2 to 2.5 mg/dL admitted to the hospital for confusion, intubated for airway protection and admitted to ICU. Fortunately patient was able to be extubated this morning. She is also found to have a right proximal humerus fracture, seen by Ortho, conservative treatment at this time. Nephrology consulted in view of elevated creatinine. Last hospitalization from September 18 to September 24 serum creatinine at peak 8.6, by time of discharge improving to 5.39, improved with IV fluids. Did not need SITE LEASING AGENT. On October 06, admission serum creatinine 3.5 and today creatinine up to 4.48. Potassium normal, bicarb 20. Patient is nonoliguric (has guevara). In past with IV fluids renal function improved. Possible rising serum creatinine from volume mediated changes. No recent DWIGHT, ARB's, or diuretics, no recent IV contrast exposure. Blood pressures acceptable. Renal ultrasound this admission no hydronephrosis. Will start gentle IV fluids. At this time there is no acute indication for renal replacement therapy. I did discuss with patient should renal function not improve and continue to worsen she may be needing renal replacement therapy. Patient voiced understanding and is in agreement for dialysis should it be warranted. Labs ordered for morning. Further orders forthcoming as hospitalization evolves, thank you for allowing us to participate in the care of Ms. Cordova. Assessment and plan reviewed with Dr. Robertson. HPI Consult Data Date of Consult: 10/09/25 HPI Narrative HPI Narrative: AZUL CORDOVA, is a 80 F with past medical history significant for diabetes mellitus type 2, hypertension, chronic kidney disease stage IV who was brought to the emergency room for evaluation of altered mental status changes. Patient had been residing at [facility] for therapy after recent hospitalization where she was admitted for C. difficile infection and OSVALDO. In the emergency room patient was intubated for airway protection and admitted for further evaluation and treatment. Fortunately patient was able to be extubated this morning. Nephrology consulted in view of rising creatinine. Patient is known to us, she follows with Dr. Robertson in the [place] office for CKD. Serum creatinine fluctuates around 2 to 2.5 mg/dL. Last hospitalization (09/18 to 09/24) serum creatinine peaked 8.6 (09/18) but with IV fluids and supportive measures serum creatinine was improving by time of discharge; patient did not need SITE LEASING AGENT. On October 06 creatinine 3.5, today creatinine up to 4.48. Patient is alert and oriented. She was able to take some applesauce and few sips of fluids this morning. Patient states before coming to hospital her stools were formed. No other complaints. [facility] Medical History Microscopic colitis Anemia CKD (chronic kidney disease) Osteoarthritis History of irritable colon Essential hypertension Dyslipidemia Anxiety Diabetes Kidney disease GI bleed Non-smoker Upper GI bleed Duodenal ulcer Candidiasis of breast History of anemia History of hypertension History of chronic kidney disease History of hyperlipidemia History of diabetes insipidus Candidal intertrigo Stage 3b chronic kidney disease (CKD) Osteoporosis Hyperlipidemia Anemia Hypertension Lymphedema Morbid obesity History of gastroesophageal reflux (GERD) Type II diabetes mellitus Home Medications ?Medication ?Instructions ?Recorded ?Last Taken ?Type folic acid 1 mg tablet 1 mg PO DAILY@0800 SUPPLEMENT 01/21/17 05/03/25 History calcium 600 mg (as 1 tab PO DAILY SUPPLEMENT 03/05/19 05/03/25 History carbonate)-vitamin D3 20 mcg (800 unit) tablet (Caltrate with Vitamin D3) citalopram 20 mg tablet 20 mg PO [facility] mental health 01/22/22 05/03/25 History pentoxifylline 400 mg 400 mg PO DAILY PAD 02/15/24 05/03/25 History tablet,extended release vitamin E 268 mg (400 unit) capsule 268 mg PO DAILY Supplement 02/15/24 05/03/25 History ferrous sulfate 325 mg (65 mg 325 mg PO DAILY Supplement 06/05/24 05/03/25 History iron) tablet (FeroSul) amlodipine 5 mg tablet 5 mg PO DAILY 30 days #30 tabs 01/11/25 05/03/25 Rx aspirin 81 mg capsule 81 mg PO DAILY 05/04/25 05/03/25 History insulin glargine 100 unit/mL (3 12 unit subcut BID 05/04/25 05/03/25 History mL) subcutaneous pen (Lantus Solostar U-100 Insulin) pantoprazole 40 mg tablet,delayed 40 mg PO DAILY 05/04/25 05/03/25 History release acetaminophen 325 mg tablet 650 mg (2 x 325 mg) PO Q6H PRN PRN 05/09/25 Unknown Rx Pain 1-10 Or Fever >100.7 #0 tabs alendronate 70 mg tablet 70 mg PO QWEEK #14 tabs 09/16/25 Unknown Rx budesonide 3 mg 6 mg PO QAM Stomach Lining 09/18/25 Unknown History capsule,delayed,extended release metoprolol succinate 50 mg 100 mg PO DAILY 09/18/25 Unknown History tablet,extended release 24 hr potassium chloride 20 mEq 20 meq PO DAILY 09/18/25 Unknown History tablet,extended release(part/cryst) nystatin 100,000 unit/gram topical 1 applic topical BID 10/07/25 Unknown History powder (Nystop) Allergy/AdvReac Type Severity Reaction Status Date / Time chlorhexidine Allergy Unknown Verified 10/07/25 08:41 Iodinated Contrast Media Allergy Other Verified 10/07/25 08:41 (CONTRASTS) iodine Allergy Unknown Verified 10/07/25 08:41 latex Allergy Rash Verified 10/07/25 08:41 vancomycin AdvReac Intermediate Other Verified 10/07/25 08:41 Family History Other Diabetes Surgical History History of elbow surgery History of tonsillectomy and adenoidectomy 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 Social History household members: none Smoking Status: Never smoker alcohol intake: never substance use type: does not use ROS ROS Narrative As in HPI otherwise negative Physical Exam Narrative Alert and oriented, no apparent distress S1, S2, RRR Clear breath sounds anteriorly. No wheezes rhonchi or rales. On O2 nasal cannula Abdomen soft, nontender No pitting edema bilateral lower legs Guevara with clear yellow urine in bag Lab / Micro Data 10/09/25 07:43 10/09/25 07:43 Labs: Laboratory Results - last 24 hr 10/08/25 17:05: POC Glucose 111 H 10/08/25 21:19: POC Glucose 115 H 10/09/25 07:43: WBC 25.1 H, RBC 2.90 L, Hgb 8.6 L, Hct 26.2 L, MCV 90.3, MCH 29.7, MCHC 32.8, RDW Std Deviation 51.5 H, RDW Coeff of [place] 15.6 H, Plt Count 261, MPV 9.4, Immature Gran % (Auto) 1.200 H, Neut % (Auto) 76.9 H, Lymph % (Auto) 4.7 L, [place] % (Auto) 14.2 H, Eos % (Auto) 2.6, Baso % (Auto) 0.4, Absolute Neuts (auto) 19.3 H, Absolute Lymphs (auto) 1.17, Nucleated RBC % 0, Differential Comment SCANNED, Sodium 140, Potassium 4.0, Chloride 106, Carbon Dioxide 19.5 L, Anion Gap 15, BUN 44 H, Creatinine 4.48 H, Estim Creat Clear Calc 11.02 L, Est GFR (MDRD) Non-Af 9 L, BUN/Creatinine Ratio 9.7 L, Glucose 135 H, Calcium 7.6 10/09/25 08:04: POC Glucose 124 H 10/09/25 11:24: POC Glucose 123 H Micro: Microbiology 10/07/25 09:31 Blood Culture (Wb) - Anticubital Left Blood Culture - Preliminary No growth in 48 hours. 10/07/25 09:08 Blood Culture (Wb) - Anticubital Right Blood Culture - Preliminary No growth in 48 hours. 10/07/25 09:07 Urine, Catheterized Urine Culture - Preliminary GNR lactose digital media director 10/07/25 15:30 Sputum, Induced/Lukens Gram Stain - Final 10/07/25 15:30 Sputum, Induced/Lukens Respiratory Culture - Preliminary Appears to be normal respiratory den. Further studies to follow. 10/08/25 07:57 Nasal Secretion MRSA (PCR) - Final Rhythm Strip Rhythm Strip: Junctional rhythm Rate: 71 Ectopy: None Imaging Radiology Impression Brain CT 10/08/25 12:51 IMPRESSION: CHRONIC CHANGES. NO ACUTE FINDINGS. Reading Location: [place] [address]
[2025-10-09] MEDS: Lactated Ringers 1,000 ML 75 ML IV (14:42)
--- NOTE | 2025-10-09 15:59 | CASEMGMT ---
Discharge Planning Per [facility], they will not submit for precert until pt is off vent and restraint-free for 24hrs. SW updated. Kortney Roberto DC Planning Asst.
[2025-10-09] MEDS: Insulin Glargine-YFGN 100 UNIT/ML Pen 12 UNIT SC (21:29)
[2025-10-10] VITALS (25 sets, daily range): BP systolic 107–131; BP diastolic 42–70; PULSE 70–97; RESP 16–23; TEMP 35.9–37.1; O2SAT 80–98; BMI 40.8
[2025-10-10] MEDS: Lactated Ringers 1,000 ML 75 ML IV ×2 (04:16→17:51)
--- NOTE | 2025-10-10 07:11 | PCM.PN.INT ---
Assessment & Plan Assessment/Plan (1) Acute hypercapnic respiratory failure: PLAN: Plan RECOMMENDATIONS: 1. Continue to wean supplemental oxygen to maintain saturations at or above 90%. 2. Continue empiric antimicrobials. 3. Medical management of humerus fracture per orthopedic surgery. 4. Lovenox for DVT prophylaxis. 5. Encourage incentive spirometer use and mobilize patient as tolerated. 6. The patient is medically stable for transfer out of the intensive care unit. Please call with any additional questions. IMPRESSIONS: 1. Acute hypoxemic and hypercapnic respiratory failure Most likely secondary to central respiratory depression induced by IV morphine administration in a patient with underlying renal insufficiency. As a consequence of this, the patient's airway became compromised and she did require emergent intubation. Follow-up CT scan demonstrated possible atelectasis versus infiltrate in the lung bases. Therefore, the patient was placed empirically on antimicrobials. With invasive mechanical ventilatory support, the patient's mental and respiratory status have improved. She was able to be extubated on October 09. Recommend continuing to wean supplemental oxygen to maintain saturations at or above 90%. Encourage incentive spirometer use and mobilize patient as tolerated. 2. Toxic/metabolic encephalopathy Improved. Again, likely related to IV morphine administration. Recommend cautious use of opiates for pain control in this patient. 3. Recent fall with acute displaced fracture of the right humeral head Will defer management to orthopedic surgery. 4. History of chronic kidney disease/recent C. difficile colitis/hypertension/diabetes mellitus/GERD Complicates care, management, recovery and prognosis. Continue sliding scale insulin coverage for now. PT/OT to work with the patient. CODE STATUS: DNR CCA without intubation (confirmed with the patient) This note was generated with Oculus360 dictation software. It may contain incorrect words, spelling, and punctuation that were not noted in checking the note before signing. Subjective Subjective The patient was seen and examined at the bedside this morning. Events from the last 24 hours have been reviewed. The patient is currently afebrile, hemodynamically stable and maintaining appropriate oxygen saturations on 4 L/min via nasal cannula. White blood cell count has improved to 22,000. Hemoglobin was noted to be 7.7 g/dL with a platelet count of 255,000. Chemistry profile was notable for a creatinine of 4.52. Objective Data Objective Data The patient's most recent lab work, culture data and imaging studies have all been personally reviewed. Surface echocardiogram from May 2025 demonstrated normal LV size and function with an ejection fraction of 65%. Blood, urine and sputum cultures are pending. Vital Signs: Vital Signs Temp Pulse Resp BP Pulse Ox O2 Del Method O2 Flow Rate 98.2 F 88 21 H 129/65 H 94 Nasal Cannula 4 10/10/25 07:00 10/10/25 07:00 10/10/25 07:00 10/10/25 07:00 10/10/25 07:00 10/10/25 07:00 10/10/25 07:00 FiO2 30 10/09/25 08:00 Oxygen Flow Rate (L/min) 4 Oxygen Delivery Method Nasal Cannula Weight: 222 lb 0.088 oz Body Mass Index (BMI) 40.8 Intake & Output: Intake and Output for Last 24 Hours 10/08/25 10/09/25 10/10/25 23:59 23:59 23:59 Intake Total 1086.07 / 1090.07 672.50 / 672.50 1250 / 1250 Output Total 490 / 590 800 / 800 300 / 300 Balance 596.07 / 500.07 -127.50 / -127.50 950 / 950 Lab / Micro Data Attestation: I reviewed the patient's lab results. 10/10/25 05:00 10/10/25 05:00 Labs: Laboratory Results - last 24 hr 10/09/25 07:43: WBC 25.1 H, RBC 2.90 L, Hgb 8.6 L, Hct 26.2 L, MCV 90.3, MCH 29.7, MCHC 32.8, RDW Std Deviation 51.5 H, RDW Coeff of Juan [place] 15.6 H, Plt Count 261, MPV 9.4, Immature Gran % (Auto) 1.200 H, Neut % (Auto) 76.9 H, Lymph % (Auto) 4.7 L, [place] % (Auto) 14.2 H, Eos % (Auto) 2.6, Baso % (Auto) 0.4, Absolute Neuts (auto) 19.3 H, Absolute Lymphs (auto) 1.17, Nucleated RBC % 0, Differential Comment SCANNED, Sodium 140, Potassium 4.0, Chloride 106, Carbon Dioxide 19.5 L, Anion Gap 15, BUN 44 H, Creatinine 4.48 H, Estim Creat Clear Calc 11.02 L, Est GFR (MDRD) Non-Af 9 L, BUN/Creatinine Ratio 9.7 L, Glucose 135 H, Calcium 7.6 10/09/25 08:04: POC Glucose 124 H 10/09/25 11:24: POC Glucose 123 H 10/09/25 16:33: POC Glucose 132 H 10/09/25 21:27: POC Glucose 145 H Micro: Microbiology 10/07/25 09:31 Blood Culture (Wb) - Anticubital Left Blood Culture - Preliminary No growth in 48 hours. 10/07/25 09:08 Blood Culture (Wb) - Anticubital Right Blood Culture - Preliminary No growth in 48 hours. 10/07/25 09:07 Urine, Catheterized Urine Culture - Preliminary GNR lactose outcomes analyst 10/07/25 15:30 Sputum, Induced/Lukens Gram Stain - Final 10/07/25 15:30 Sputum, Induced/Lukens Respiratory Culture - Preliminary Appears to be normal respiratory den. Further studies to follow. 10/08/25 07:57 Nasal Secretion MRSA (PCR) - Final 10/07/25 09:52 Mucosa - Nose SARS-CoV-2, Influenza & RSV (PCR) - Final ABG Data ABG results: ABG 10/08/25 10/08/25 05:51 09:22 Specimen Type ART ART Sample Site R Radial L Radial pH 7.40 7.35 Bicarbonate Actual 21.8 L 23.0 Total CO2 23 24 Base Excess -3 L -3 L O2 Saturation 81 L 87 L O2 % 30.0 40.0 ABG pCO2 35.5 41.7 ABG pO2 45 L 56 L Michael Test Positive Positive Respiration Rate 14 O2 Delivery Device ET Tube Adult Vent Vent Mode AC CPAP/PS Tidal Volume 450.0 POC PEEP 5 5 Radiography Diagnostic Testing: Radiology Impression Chest X-Ray 10/08/25 05:50 IMPRESSION: Endotracheal tube is in good position. Enteric feeding tube is in good position. Bilateral basilar atelectatic pulmonary changes/multifocal airspace disease of the lower lobes. Reading Location: [place] [address] Renal Ultrasound 10/08/25 09:26 IMPRESSION: Mild left renal atrophy. No evidence of hydronephrosis. Reading Location: [place] [address] Shoulder X-Ray 10/08/25 09:30 IMPRESSION: Transverse fracture through the surgical neck of the proximal right humerus with lateral displacement of the humeral head. Reading Location: [place] [address] 10/08/25 12:51 IMPRESSION: CHRONIC CHANGES. NO ACUTE FINDINGS. Reading Location: [place] [address] Rhythm Strip Rhythm Strip: Junctional rhythm Rate: 71 Ectopy: None Physical Exam Const alert and no apparent distress General Appearance: cooperative and frail HEENT normocephalic and head/scalp atraumatic Eyes PERRL, EOMs intact bilaterally and conjunctivae normal Neck supple General: trachea midline Chest inspection of chest normal Resp Auscultation: diminished lung sounds; Negative for rales, rhonchi or wheezes Cardio regular rate and regular rhythm GI normal to inspection, nondistended, normoactive bowel sounds Extremity no clubbing, cyanosis or edema Skin General Skin Exam: venous stasis and dermatitis Neuro CN's II-XII intact bilaterally and no focal motor deficits Psych Mood & Affect: flat affect Charges/Coding Visit Charges Inpatient E&M: 31063 Subs Hosp L3
--- NOTE | 2025-10-10 07:34 | PCM.PN.HOSP ---
Reason for Visit Chief Complaint: Confusion. Subjective Subjective Feeling well. Objective Data Objective Data Vital Signs: Vital Signs Temp Pulse Resp BP Pulse Ox O2 Del Method O2 Flow Rate 36.8 C 90 20 H 129/65 H 98 Nasal Cannula 4 10/10/25 07:00 10/10/25 07:15 10/10/25 07:15 10/10/25 07:00 10/10/25 07:21 10/10/25 07:21 10/10/25 07:21 FiO2 30 10/09/25 08:00 Oxygen Flow Rate (L/min) 4 Oxygen Delivery Method Nasal Cannula Weight: 100.7 kg Body Mass Index (BMI) 40.8 Intake & Output: Intake and Output for Last 24 Hours 10/08/25 10/09/25 10/10/25 23:59 23:59 23:59 Intake Total 1086.07 / 1090.07 672.50 / 672.50 1250 / 1250 Output Total 490 / 590 800 / 800 300 / 300 Balance 596.07 / 500.07 -127.50 / -127.50 950 / 950 Lab / Micro Data 10/10/25 05:00 10/10/25 05:00 Labs: Laboratory Results - last 24 hr 10/09/25 07:43: WBC 25.1 H, RBC 2.90 L, Hgb 8.6 L, Hct 26.2 L, MCV 90.3, MCH 29.7, MCHC 32.8, RDW Std Deviation 51.5 H, RDW Coeff of [place] 15.6 H, Plt Count 261, MPV 9.4, Immature Gran % (Auto) 1.200 H, Neut % (Auto) 76.9 H, Lymph % (Auto) 4.7 L, [place] % (Auto) 14.2 H, Eos % (Auto) 2.6, Baso % (Auto) 0.4, Absolute Neuts (auto) 19.3 H, Absolute Lymphs (auto) 1.17, Nucleated RBC % 0, Differential Comment SCANNED, Sodium 140, Potassium 4.0, Chloride 106, Carbon Dioxide 19.5 L, Anion Gap 15, BUN 44 H, Creatinine 4.48 H, Estim Creat Clear Calc 11.02 L, Est GFR (MDRD) Non-Af 9 L, BUN/Creatinine Ratio 9.7 L, Glucose 135 H, Calcium 7.6 10/09/25 08:04: POC Glucose 124 H 10/09/25 11:24: POC Glucose 123 H 10/09/25 16:33: POC Glucose 132 H 10/09/25 21:27: POC Glucose 145 H Micro: Microbiology 10/07/25 09:31 Blood Culture (Wb) - Anticubital Left Blood Culture - Preliminary No growth in 48 hours. 10/07/25 09:08 Blood Culture (Wb) - Anticubital Right Blood Culture - Preliminary No growth in 48 hours. 10/07/25 09:07 Urine, Catheterized Urine Culture - Preliminary GNR lactose judicial reporter 10/07/25 15:30 Sputum, Induced/Lukens Gram Stain - Final 10/07/25 15:30 Sputum, Induced/Lukens Respiratory Culture - Preliminary Appears to be normal respiratory den. Further studies to follow. 10/08/25 07:57 Nasal Secretion MRSA (PCR) - Final 10/07/25 09:52 Mucosa - Nose SARS-CoV-2, Influenza & RSV (PCR) - Final Rhythm Strip Rhythm Strip: Junctional rhythm Rate: 71 Ectopy: None Physical Exam Const alert and no apparent distress HEENT head/scalp atraumatic and moist oral mucous membranes Resp normal respiratory effort and no retractions Resp Narrative: coarse breath sounds. Cardio regular rate, regular rhythm, S1 normal heart sound and S2 normal heart sound GI normal to inspection, nondistended, normoactive bowel sounds, soft to palpation, non-tender and non-distended Neuro Sensorium / Orientation: awake and alert Assessment & Plan Assessment/Plan (1) Acute hypercapnic respiratory failure: PLAN: Intubated 10/07 for respiratory acidosis and airway protection. Extubated on 10/09 [address]X [address] consolidation on CT pulmonary consult has been having a fever, so started on empiric abx with pip/tazo. Low threshold to check for C.diff given recent infection and now on abx. SCx showing normal respiratory den. (2) Metabolic encephalopathy: PLAN: Probably secondary to CO2 narcosis. Patient presented with confusion. When I saw her she was more somnolent and that at least was partially attributable to the morphine that she had just received in the ED However, status worsened and patient required intubation. Head CT negative for any acute process. (3) Humerus fracture: PLAN: Patient injured her arm trying to get into an arm chair. From the niece's description sounds like it may have been dislocated given that was described as being out of place but x-rays here were unremarkable. Patient have significant pain. She had been in a sling at the facility and we will place her back in a sling and pain control with the exception of narcotics and gabapentin. Additionally hold off on NSAIDs given her CKD. Ortho recs: not a good candidate for surgical care given osteopenia. Planning on conservative mgmt and follow up in 2-3 weeks. NWB in RUE CT chest showed acute displaced comminuted fracture of the right humeral head/surgical neck. NWB RUE when able to work with therapy. 25-OH d level low at 20.6. Start ergocalciferol 50,000 units weekly x8 PLAN: Plan Obesity class III: Complicates care and recovery Diabetes mellitus type 2: Continue with glargine. Sliding scale insulin. Check an A1c. Recent C. difficile: Expectant monitoring at this time. 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 Will monitor. If it continues to worsen may need to consult nephrology. anemia: monitor. VTE prophylaxis with heparin Code status: DNRCCA, intubation ok. Charges/Coding Visit Charges Inpatient E&M: 59800 Subs Hosp L2
[2025-10-10] MEDS: Budesonide 3 MG CAPSULE.EC 6 MG PO (07:41)
[2025-10-10] MEDS: Metoprolol(XL)Succ 100 MG Tablet PO (07:41)
[2025-10-10] MEDS: Potassium Chloride Oral Tablet 20 MEQ PO (07:42)
[2025-10-10 08:20] LABS: Hematocrit 25.1 % (37-47); Hemoglobin 7.7 g/dL (12.0-15.0); Immature Granulocytes Count 0.210 X10^3/uL (0.0-0.0); Mean Corp Hgb Conc 30.7 g/dL (32-36); Mean Corpuscular Volume 93.3 fL (81-99); Mean Platelet Vol. 9.9 fl (6.2-12.0); NRBC Flagged by Analyzer 0 % (0-5); POSITIVE DIFFERENTIAL YES; Platelet Count 255 K/mm3 (150-450); RBC Distribution Width CV 15.5 % (11.6-14.6); RBC Distribution Width SD 53.1 fl (35.1-43.9); Red Blood Count 2.69 M/mm3 (4.2-5.4); White Blood Count 22.1 K/mm3 (4.4-11.0)
--- NOTE | 2025-10-10 08:59 | CASEMGMT ---
Discharge Planning Updates sent via [facility] to [facility] with request to submit for precert. Kortney Roberot DC Planning Asst.
[2025-10-10 09:03] LABS: Anion Gap 15 (5-15); BUN 45 mg/dL (4-19); BUN/Creat Ratio 9.9 RATIO (10-20); Calcium,Total 7.3 mg/dL (7.6-11.0); Carbon Dioxide 21.1 mmol/L (21.0-32.0); Chloride 107 mmol/L (98-108); Estimated Creatinine Clearance 10.99 ml/min (50-250); Glucose 116 mg/dL (70-99); Potassium 3.7 mmol/L (3.3-5.1)
[2025-10-10] MEDS: Ergocalciferol 1.25 MG (50, 000 UNIT) Capsule PO (10:22)
[2025-10-10] MEDS: Piperacil/Tazobactam 3.375 GM in 0.9% Normal Saline (50mL MB+) 50 ML IV ×2 (10:22→21:46)
--- NOTE | 2025-10-10 11:29 | CASEMGMT ---
Addendum entered by Justino Abad 10/10/25 15:54: RN ASIF spoke w/alberto/Letha GOULD. She states she spoke w/someone from [facility] about an hour ago and addressed her concerns. She states plan is still for pt to return to [facility]. Kortney, discharge clinical data assistant, made aware. Transport sheet started and placed on pt's chart w/green sheet. Original Note: DEBRA GOLD note: RN ASIF spoke w/pt's niece/Letha GUZMAN. She was made aware pre-cert will be started today for pt to return to [facility], skilled. She voices concerns w/pt returning to [facility] and would like to talk w/someone @ [facility] re: those concerns. She states she has attempted to talk w/someone there w/out success. Letha informed this RN CM would reach out to [facility] and inform them she would like to talk w/them today. She was provided w/this RN CM contact # to return call once she speaks w/someone @ [facility] and to discuss discharge plans for pt moving forward. Nazanin HOOVER RN, CM
--- NOTE | 2025-10-10 16:24 | PN.RENAL_ITS ---
Subjective Subjective no new events Objective Data Objective Data Vital Signs: Vital Signs Temp Pulse Resp BP Pulse Ox O2 Del Method O2 Flow Rate 98.8 F 77 18 119/51 L 95 Nasal Cannula 5 10/10/25 15:19 10/10/25 15:19 10/10/25 15:19 10/10/25 15:19 10/10/25 15:38 10/10/25 15:38 10/10/25 15:38 FiO2 30 10/09/25 08:00 Oxygen Flow Rate (L/min) 5 Oxygen Delivery Method Nasal Cannula Weight: 100.7 kg Body Mass Index (BMI) 40.8 Intake & Output: Intake and Output for Last 24 Hours 10/08/25 10/09/25 10/10/25 23:59 23:59 23:59 Intake Total 1086.07 / 1090.07 672.50 / 672.50 1300 / 1300 Output Total 490 / 590 800 / 800 700 / 700 Balance 596.07 / 500.07 -127.50 / -127.50 600 / 600 Lab / Micro Data 10/10/25 05:00 10/10/25 05:00 Labs: Laboratory Results - last 24 hr 10/09/25 16:33: POC Glucose 132 H 10/09/25 21:27: POC Glucose 145 H 10/10/25 05:00: WBC 22.1 H, RBC 2.69 L, Hgb 7.7 L, Hct 25.1 L, MCV 93.3, MCH 28.6, MCHC 30.7 L D, RDW Std Deviation 53.1 H, RDW Coeff of [place] 15.5 H, Plt Count 255, MPV 9.9, Immature Gran % (Auto) 0.900, Neut % (Auto) 80.1 H, Lymph % (Auto) 4.2 L, [place] % (Auto) 9.3, Eos % (Auto) 5.0, Baso % (Auto) 0.5, Absolute Neuts (auto) 17.7 H, Absolute Lymphs (auto) 0.92, Nucleated RBC % 0, Differential Comment COMMENT, Sodium 143, Potassium 3.7, Chloride 107, Carbon Dioxide 21.1, Anion Gap 15, BUN 45 H, Creatinine 4.52 H, Estim Creat Clear Calc 10.99 L, Est GFR (MDRD) Non-Af 9 L, BUN/Creatinine Ratio 9.9 L, Glucose 116 H, C alcium 7.3 L 10/10/25 07:40: POC Glucose 106 10/10/25 11:31: POC Glucose 153 H Micro: Microbiology 10/07/25 09:07 Urine, Catheterized Urine Culture - Final Escherichia coli 10/07/25 15:30 Sputum, Induced/Lukens Gram Stain - Final 10/07/25 15:30 Sputum, Induced/Lukens Respiratory Culture - Final Mixed normal respiratory den. No Streptococcus pneumoniae, beta-hemolytic Streptococcus or Staphylococcus aureus isolated. 10/07/25 09:31 Blood Culture (Wb) - Anticubital Left Blood Culture - Preliminary No growth in 48 hours. 10/07/25 09:08 Blood Culture (Wb) - Anticubital Right Blood Culture - Preliminary No growth in 48 hours. 10/08/25 07:57 Nasal Secretion MRSA (PCR) - Final 10/07/25 09:52 Mucosa - Nose SARS-CoV-2, Influenza & RSV (PCR) - Final Rhythm Strip Rhythm Strip: Junctional rhythm Rate: 71 Ectopy: None Physical Exam Narrative Alert and oriented, no apparent distress S1, S2, RRR Clear breath sounds anteriorly. No wheezes rhonchi or rales. On O2 nasal cannula Abdomen soft, nontender No pitting edema bilateral lower legs Guevara with clear yellow urine in bag Assessment & Plan Assessment/Plan (1) Acute kidney injury superimposed on chronic kidney disease: (2) CKD (chronic kidney disease) stage 4, GFR 15-29 ml/min: PLAN: Plan This is a pleasant 80-year-old female with past medical history significant for chronic kidney disease stage IV with baseline creatinine ranging around 2 to 2.5 mg/dL admitted to the hospital for confusion, intubated for airway protection and admitted to ICU. Fortunately patient was able to be extubated this morning. She is also found to have a right proximal humerus fracture, seen by Ortho, conservative treatment at this time. Nephrology consulted in view of elevated creatinine. Last hospitalization from September 18 to September 24 serum creatinine at peak 8.6, by time of discharge improving to 5.39, improved with IV fluids. Did not need [employer]. On October 06, admission serum creatinine 3.5 and today creatinine up to 4.48. Potassium normal, bicarb 20. Patient is nonoliguric (has guevara). In past with IV fluids renal function improved. Possible rising serum creatinine from volume mediated changes. No recent DWIGHT, ARB's, or diuretics, no recent IV contrast exposure. Blood pressures acceptable. Renal ultrasound this admission no hydronephrosis. Will start gentle IV fluids. At this time there is no acute indication for renal replacement therapy. I did discuss with patient should renal function not improve and continue to worsen she may be needing renal replacement therapy. Patient voiced understanding and is in agreement for dialysis should it be warranted. Labs ordered for morning. Further orders forthcoming as hospitalization evolves, thank you for allowing us to participate in the care of Ms. Cordova. Assessment and plan reviewed with Dr. Robertson. 10/10. alert awake. does not remember exactly what happened. right arm in sling. cr stable. urine output is ok.
[2025-10-10] MEDS: Insulin Glargine-YFGN 100 UNIT/ML Pen 12 UNIT SC (21:46)
[2025-10-11] VITALS (8 sets, daily range): BP systolic 133–167; BP diastolic 58–76; PULSE 68–84; RESP 16–20; TEMP 35.8–36.8; O2SAT 94–98
[2025-10-11 06:16] LABS: Hematocrit 26.2 % (37-47); Hemoglobin 8.0 g/dL (12.0-15.0); Immature Granulocytes Count 0.160 X10^3/uL (0.0-0.0); Mean Corp Hgb Conc 30.5 g/dL (32-36); Mean Corpuscular Volume 92.6 fL (81-99); Mean Platelet Vol. 10.1 fl (6.2-12.0); NRBC Flagged by Analyzer 0 % (0-5); Platelet Count 250 K/mm3 (150-450); RBC Distribution Width CV 15.4 % (11.6-14.6); RBC Distribution Width SD 52.2 fl (35.1-43.9); Red Blood Count 2.83 M/mm3 (4.2-5.4); White Blood Count 18.5 K/mm3 (4.4-11.0)
[2025-10-11] MEDS: Lactated Ringers 1,000 ML 75 ML IV ×2 (06:23→20:56)
[2025-10-11 06:35] LABS: Anion Gap 16 (5-15); BUN 43 mg/dL (4-19); BUN/Creat Ratio 9.2 RATIO (10-20); Calcium,Total 7.7 mg/dL (7.6-11.0); Carbon Dioxide 19.4 mmol/L (21.0-32.0); Chloride 108 mmol/L (98-108); Estimated Creatinine Clearance 10.73 ml/min (50-250); Glucose 118 mg/dL (70-99); Potassium 3.5 mmol/L (3.3-5.1)
[2025-10-11] MEDS: Metoprolol(XL)Succ 100 MG Tablet PO (10:53)
[2025-10-11] MEDS: Potassium Chloride Oral Tablet 20 MEQ PO (10:54)
[2025-10-11] MEDS: Budesonide 3 MG CAPSULE.EC 6 MG PO (10:55)
[2025-10-11] MEDS: Insulin Glargine-YFGN 100 UNIT/ML Pen 12 UNIT SC ×2 (10:56→21:00)
[2025-10-11] MEDS: Piperacil/Tazobactam 3.375 GM in 0.9% Normal Saline (50mL MB+) 50 ML IV ×2 (11:02→20:56)
--- NOTE | 2025-10-11 11:36 | PN.HOSP_ITS ---
Reason for Visit Chief Complaint: Confusion. Subjective Subjective Feeling good. Noted to edema in right upper extremity. Objective Data Objective Data Vital Signs: Vital Signs Temp Pulse Resp BP Pulse Ox O2 Del Method O2 Flow Rate 36.8 C 84 20 H 167/71 H 94 Nasal Cannula 5.5 10/11/25 10:49 10/11/25 10:53 10/11/25 10:49 10/11/25 10:53 10/11/25 10:49 10/11/25 10:49 10/11/25 10:49 FiO2 30 10/09/25 08:00 Oxygen Flow Rate (L/min) 5.5 Oxygen Delivery Method Nasal Cannula Weight: 100.7 kg Body Mass Index (BMI) 40.8 Intake & Output: Intake and Output for Last 24 Hours 10/09/25 10/10/25 10/11/25 23:59 23:59 23:59 Intake Total 672.50 / 672.50 2300 / 2300 990 / 990 Output Total 800 / 800 700 / 700 Balance -127.50 / -127.50 1600 / 1600 990 / 990 Lab / Micro Data 10/11/25 05:24 10/11/25 05:24 Labs: Laboratory Results - last 24 hr 10/10/25 11:31: POC Glucose 153 H 10/10/25 16:54: POC Glucose 154 H 10/10/25 20:57: POC Glucose 139 H 10/11/25 05:24: WBC 18.5 H, RBC 2.83 L, Hgb 8.0 L, Hct 26.2 L, MCV 92.6, MCH 28.3, MCHC 30.5 L, RDW Std Deviation 52.2 H, RDW Coeff of [place] 15.4 H, Plt Count 250, MPV 10.1, Immature Gran % (Auto) 0.900, Neut % (Auto) 84.4 H, Lymph % (Auto) 3.8 L, [place] % (Auto) 7.9, Eos % (Auto) 2.5, Baso % (Auto) 0.5, Absolute Neuts (auto) 15.7 H, Absolute Lymphs (auto) 0.70 L, Nucleated RBC % 0, Sodium 143, Potassium 3.5, Chloride 108, Carbon Dioxide 19.4 L, Anion Gap 16 H, BUN 43 H, Creatinine 4.63 H, Estim Creat Clear Calc 10.73 L, Est GFR (MDRD) Non-Af 9 L, BUN/Creatinine Ratio 9.2 L, Glucose 118 H, Calcium 7.7 10/11/25 06:27: POC Glucose 105 Micro: Microbiology 10/07/25 09:07 Urine, Catheterized Urine Culture - Final Escherichia coli 10/07/25 15:30 Sputum, Induced/Lukens Gram Stain - Final 10/07/25 15:30 Sputum, Induced/Lukens Respiratory Culture - Final Mixed normal respiratory den. No Streptococcus pneumoniae, beta-hemolytic Streptococcus or Staphylococcus aureus isolated. 10/07/25 09:31 Blood Culture (Wb) - Anticubital Left Blood Culture - Preliminary No growth in 48 hours. 10/07/25 09:08 Blood Culture (Wb) - Anticubital Right Blood Culture - Preliminary No growth in 48 hours. 10/08/25 07:57 Nasal Secretion MRSA (PCR) - Final 10/07/25 09:52 Mucosa - Nose SARS-CoV-2, Influenza & RSV (PCR) - Final Rhythm Strip Rhythm Strip: Junctional rhythm Rate: 71 Ectopy: None Physical Exam Const alert and no apparent distress HEENT head/scalp atraumatic and moist oral mucous membranes Resp normal respiratory effort, no retractions, no use of accessory muscles and clear to auscultation bilaterally Cardio regular rate, regular rhythm, S1 normal heart sound and S2 normal heart sound GI normal to inspection, nondistended, normoactive bowel sounds, soft to palpation, non-tender and non-distended Neuro Sensorium / Orientation: awake and alert Assessment & Plan Assessment/Plan (1) Acute hypercapnic respiratory failure: PLAN: Intubated 10/07 for respiratory acidosis and airway protection. Extubated on 10/09 [address]X [address] consolidation on CT pulmonary consult has been having a fever, so started on empiric abx with pip/tazo. Low threshold to check for C.diff given recent infection and now on abx. SCx showing normal respiratory den. (2) Metabolic encephalopathy: PLAN: Resolved. POA. Probably secondary to CO2 narcosis. Patient presented with confusion. When I saw her she was more somnolent and that at least was partially attributable to the morphine that she had just received in the ED However, status worsened and patient required intubation. Head CT negative for any acute process. (3) Humerus fracture: PLAN: Patient injured her arm trying to get into an arm chair. From the niece's description sounds like it may have been dislocated given that was described as being out of place but x-rays here were unremarkable. Patient have significant pain. She had been in a sling at the facility and we will place her back in a sling and pain control with the exception of narcotics and gabapentin. Additionally hold off on NSAIDs given her CKD. Ortho recs: not a good candidate for surgical care given osteopenia. Planning on conservative mgmt and follow up in 2-3 weeks. NWB in RUE CT chest showed acute displaced comminuted fracture of the right humeral head/surgical neck. NWB RUE when able to work with therapy. 25-OH d level low at 20.6. Start ergocalciferol 50,000 units weekly x8 (4) Edema: PLAN: RUE DC PICC. Check duplex. unable to elevate given the prox humerus fracture. PLAN: Plan Obesity class III: Complicates care and recovery Diabetes mellitus type 2: Continue with glargine. Sliding scale insulin. Check an A1c. Recent C. difficile: Expectant monitoring at this time. 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 Will monitor. If it continues to worsen may need to consult nephrology. anemia: monitor. VTE prophylaxis with heparin Code status: DNRCCA, no intubation DW patient's niece at bedside. Charges/Coding Visit Charges Inpatient E&M: 72682 Subs Hosp L2
--- NOTE | 2025-10-11 15:17 | VDUE_ITS ---
Reason For Study Reason For Study: RUE Swelling Right Proximal Right jugular vein is spontaneous, widely patent, phasic, with no intraluminal echogenicity noted. Right subclavian vein is spontaneous, widely patent, phasic, with no intraluminal echogenicity noted. Right Lower Arm Right radial vein is compressible. Right ulnar vein is compressible. Right Arm Right axillary vein is spontaneous, patent, phasic, competent, compressible and demonstrates augmentation. Unable to visualize Brachial Vein. Right cephalic vein is compressible. Unable to visualize Basilic Vein. Procedure This was a unilateral right upper extremity venous doppler examination. Exam performed portable in patient room. A preliminary report was called and/or faxed to Becky GEE RN. Limited views were obtained. Pt fractured Humerus. Posseses very little range of motion. VL/Venous Duplex US, Unilateral Interpretation Summary Deep veins of the right upper extremity are patent and compressible segmentally . There is no evidence of deep vein thrombosis. Superficial veins of the right upper extremity are patent and compressible segm entally. There is no evidence of superficial vein thrombosis. Limited study Ordering Physician: Junior Georges Referring Physician: Elena Mims M.D. Performed By: Spencer Monroe RVT ???
[2025-10-11] MEDS: 0.9% Saline Lock 10 ML Syringe IV (20:56)
[2025-10-12] VITALS (8 sets, daily range): BP systolic 140–175; BP diastolic 64–85; PULSE 61–80; RESP 16–22; TEMP 36.6–36.7; O2SAT 92–99; BMI 42.3
[2025-10-12 04:42] LABS: Hematocrit 24.0 % (37-47); Hemoglobin 7.8 g/dL (12.0-15.0); Immature Granulocytes Count 0.110 X10^3/uL (0.0-0.0); Mean Corp Hgb Conc 32.5 g/dL (32-36); Mean Corpuscular Volume 89.9 fL (81-99); Mean Platelet Vol. 9.5 fl (6.2-12.0); NRBC Flagged by Analyzer 0 % (0-5); Platelet Count 221 K/mm3 (150-450); RBC Distribution Width CV 15.1 % (11.6-14.6); RBC Distribution Width SD 49.5 fl (35.1-43.9); Red Blood Count 2.67 M/mm3 (4.2-5.4); White Blood Count 14.9 K/mm3 (4.4-11.0)
[2025-10-12 05:04] LABS: Anion Gap 14 (5-15); BUN 41 mg/dL (4-19); BUN/Creat Ratio 9.4 RATIO (10-20); Calcium,Total 7.7 mg/dL (7.6-11.0); Carbon Dioxide 20.4 mmol/L (21.0-32.0); Chloride 110 mmol/L (98-108); Estimated Creatinine Clearance 11.31 ml/min (50-250); Glucose 48 mg/dL (70-99); Potassium 3.0 mmol/L (3.3-5.1)
--- NOTE | 2025-10-12 05:18 | NURSING ---
RN noted blood sugar was 48 on morning labs, Patient is asymptomatic, given OJ and crackers. Will continue to monitor.
--- NOTE | 2025-10-12 09:05 | PN.HOSP_ITS ---
Reason for Visit Chief Complaint: Confusion. Subjective Subjective Feeling well. No events overnight. Eating well. No shortness of breath. Objective Data Objective Data Vital Signs: Vital Signs Temp Pulse Resp BP Pulse Ox O2 Del Method O2 Flow Rate 36.6 C 61 18 140/64 H 99 Nasal Cannula 3 10/12/25 04:30 10/12/25 04:30 10/12/25 04:30 10/12/25 04:30 10/12/25 04:30 10/12/25 04:30 10/12/25 04:30 FiO2 30 10/09/25 08:00 Oxygen Flow Rate (L/min) 3 Oxygen Delivery Method Nasal Cannula Weight: 104.2 kg Body Mass Index (BMI) 42.3 Intake & Output: Intake and Output for Last 24 Hours 10/10/25 10/11/25 10/12/25 23:59 23:59 23:59 Intake Total 2300 / 2300 2050 / 0 49.79 / 49.79 Output Total 700 / 700 250 / 250 250 / 250 Balance 1600 / 1600 1800 / 1800 -200.21 / -200.21 Lab / Micro Data 10/12/25 04:25 10/12/25 04:25 Labs: Laboratory Results - last 24 hr 10/11/25 10:47: POC Glucose 101 10/11/25 16:33: POC Glucose 110 H 10/11/25 20:54: POC Glucose 138 H 10/12/25 04:25: WBC 14.9 H, RBC 2.67 L, Hgb 7.8 L, Hct 24.0 L, MCV 89.9, MCH 29.2, MCHC 32.5 D, RDW Std Deviation 49.5 H, RDW Coeff of [place] 15.1 H, Plt Count 221, MPV 9.5, Immature Gran % (Auto) 0.700, Neut % (Auto) 85.5 H, Lymph % (Auto) 4.1 L, [place] % (Auto) 8.3, Eos % (Auto) 1.1, Baso % (Auto) 0.3, Absolute Neuts (auto) 12.8 H, Absolute Lymphs (auto) 0.62 L, Nucleated RBC % 0, Sodium 145, P otassium 3.0 L, Chloride 110 H, Carbon Dioxide 20.4 L, Anion Gap 14, BUN 41 H, C reatinine 4.39 H, Estim Creat Clear Calc 11.31 L, Est GFR (MDRD) Non-Af 10 L, B UN/Creatinine Ratio 9.4 L, Glucose 48 L, Calcium 7.7 10/12/25 05:45: POC Glucose 59 L 10/12/25 06:12: POC Glucose 79 Micro: Microbiology 10/07/25 09:07 Urine, Catheterized Urine Culture - Final Escherichia coli 10/07/25 15:30 Sputum, Induced/Lukens Gram Stain - Final 10/07/25 15:30 Sputum, Induced/Lukens Respiratory Culture - Final Mixed normal respiratory den. No Streptococcus pneumoniae, beta-hemolytic Streptococcus or Staphylococcus aureus isolated. 10/07/25 09:31 Blood Culture (Wb) - Anticubital Left Blood Culture - Preliminary No growth in 48 hours. 10/07/25 09:08 Blood Culture (Wb) - Anticubital Right Blood Culture - Preliminary No growth in 48 hours. 10/08/25 07:57 Nasal Secretion MRSA (PCR) - Final 10/07/25 09:52 Mucosa - Nose SARS-CoV-2, Influenza & RSV (PCR) - Final Rhythm Strip Rhythm Strip: Junctional rhythm Rate: 71 Ectopy: None Physical Exam Const alert and no apparent distress HEENT head/scalp atraumatic Resp normal respiratory effort and no retractions Cardio regular rate, regular rhythm, S1 normal heart sound and S2 normal heart sound GI normal to inspection, nondistended, normoactive bowel sounds, soft to palpation and non-tender Extremity Extremity Narrative: Edema right upper extremity which is in a sling. PICC line has been removed. Assessment & Plan Assessment/Plan (1) Acute hypercapnic respiratory failure: PLAN: Intubated 10/07 for respiratory acidosis and airway protection. Extubated on 10/09 ATX and consolidation on CT pulmonary consult has been having a fever, so started on empiric abx with pip/tazo. Low threshold to check for C.diff given recent infection and now on abx. SCx showing normal respiratory den. (2) Metabolic encephalopathy: PLAN: Resolved. POA. Probably secondary to CO2 narcosis. Patient presented with confusion. When I saw her she was more somnolent and that at least was partially attributable to the morphine that she had just received in the ED However, status worsened and patient required intubation. Head CT negative for any acute process. (3) Humerus fracture: PLAN: Patient injured her arm trying to get into an arm chair. From the niece's description sounds like it may have been dislocated given that was described as being out of place but x-rays here were unremarkable. Patient have significant pain. She had been in a sling at the facility and we will place her back in a sling and pain control with the exception of narcotics and gabapentin. Additionally hold off on NSAIDs given her CKD. Ortho recs: not a good candidate for surgical care given osteopenia. Planning on conservative mgmt and follow up in 2-3 weeks. NWB in RUE CT chest showed acute displaced comminuted fracture of the right humeral head/surgical neck. NWB RUE when able to work with therapy. 25-OH d level low at 20.6. Start ergocalciferol 50,000 units weekly x8 (4) Edema: PLAN: RUE DC PICC. Check duplex to evaluate for for DVT.. unable to elevate given the prox humerus fracture. PLAN: Plan Obesity class III: Complicates care and recovery Diabetes mellitus type 2: Continue with glargine. Sliding scale insulin. Check an A1c. Recent C. difficile: Expectant monitoring at this time. 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 Will monitor. If it continues to worsen may need to consult nephrology. anemia: monitor. VTE prophylaxis with heparin Code status: DNRCCA, no intubation Plan is return to [facility] but awaiting on precertification. Charges/Coding Visit Charges Inpatient E&M: 08132 Subs Hosp L2
[2025-10-12] MEDS: Metoprolol(XL)Succ 100 MG Tablet PO (10:41)
[2025-10-12] MEDS: Budesonide 3 MG CAPSULE.EC 6 MG PO (10:41)
[2025-10-12] MEDS: Potassium Chloride Oral Tablet 20 MEQ PO (10:42)
[2025-10-12] MEDS: Lactated Ringers 1,000 ML 75 ML IV (10:43)
[2025-10-12] MEDS: Piperacil/Tazobactam 3.375 GM in 0.9% Normal Saline (50mL MB+) 50 ML IV ×2 (10:44→20:39)
--- NOTE | 2025-10-12 21:10 | NURSING ---
This RN attempted PIV x2; unsuccessful. Contacted another RN to attempt US-guided insertion.
--- NOTE | 2025-10-12 22:15 | PCM.HOSP.N ---
Hospitalist Note Patient with notable weight gain since presentation to 229, still on IVFs, will d/c for now.
[2025-10-13 03:02] VITALS: BMI 41.5
[2025-10-13 03:05] VITALS: BP 133/59; PULSE 71; RESP 18; TEMP 36.8; O2SAT 94
[2025-10-13 05:46] LABS: Hematocrit 24.6 % (37-47); Hemoglobin 7.7 g/dL (12.0-15.0); Immature Granulocytes Count 0.100 X10^3/uL (0.0-0.0); Mean Corp Hgb Conc 31.3 g/dL (32-36); Mean Corpuscular Volume 91.1 fL (81-99); Mean Platelet Vol. 9.3 fl (6.2-12.0); NRBC Flagged by Analyzer 0 % (0-5); POSITIVE DIFFERENTIAL YES; Platelet Count 230 K/mm3 (150-450); RBC Distribution Width CV 15.2 % (11.6-14.6); RBC Distribution Width SD 50.7 fl (35.1-43.9); Red Blood Count 2.70 M/mm3 (4.2-5.4); White Blood Count 11.5 K/mm3 (4.4-11.0)
[2025-10-13 06:18] LABS: Anion Gap 13 (5-15); BUN 41 mg/dL (4-19); BUN/Creat Ratio 9.2 RATIO (10-20); Calcium,Total 7.6 mg/dL (7.6-11.0); Carbon Dioxide 20.7 mmol/L (21.0-32.0); Chloride 111 mmol/L (98-108); Estimated Creatinine Clearance 11.38 ml/min (50-250); Glucose 113 mg/dL (70-99); Potassium 3.2 mmol/L (3.3-5.1)
[2025-10-13 07:05] VITALS: O2SAT 97
[2025-10-13 09:25] VITALS: BP 161/63; PULSE 68; RESP 18; TEMP 37.3; O2SAT 93
[2025-10-13] MEDS: Potassium Chloride Oral Tablet 20 MEQ PO (09:29)
[2025-10-13 09:30] VITALS: PULSE 68
[2025-10-13] MEDS: Metoprolol(XL)Succ 100 MG Tablet PO (09:30)
[2025-10-13] MEDS: Budesonide 3 MG CAPSULE.EC 6 MG PO (09:30)
[2025-10-13] MEDS: 0.9% Saline Lock 10 ML Syringe IV (09:31)
[2025-10-13] MEDS: Piperacil/Tazobactam 3.375 GM in 0.9% Normal Saline (50mL MB+) 50 ML IV (09:40)
[2025-10-13] MEDS: Insulin Glargine-YFGN 100 UNIT/ML Pen 12 UNIT SC (09:46)
--- NOTE | 2025-10-13 09:46 | PN.HOSP_ITS ---
Reason for Visit Chief Complaint: Confusion. Subjective Subjective Patient is a 80-year-old lady resident at an assisted living facility who was brought to the emergency department with confusion and hypoxia.. Patient was admitted to monitored bed respiratory status deteriorated resulting in patient being intubated. Imaging studies demonstrated comminuted proximal humerus fracture on the right involving the surgical neck and greater tuberosity Objective Data Objective Data Vital Signs: Vital Signs Temp Pulse Resp BP Pulse Ox O2 Del Method O2 Flow Rate 99.2 F H 68 18 161/63 H 93 Nasal Cannula 1.5 10/13/25 09:25 10/13/25 09:30 10/13/25 09:25 10/13/25 09:25 10/13/25 09:25 10/13/25 09:25 10/13/25 09:25 FiO2 30 10/09/25 08:00 Oxygen Flow Rate (L/min) 1.5 Oxygen Delivery Method Nasal Cannula Weight: 102.5 kg Body Mass Index (BMI) 41.5 Intake & Output: Intake and Output for Last 24 Hours 10/11/25 10/12/25 10/13/25 23:59 23:59 23:59 Intake Total 2049 / 2049 1728.75 / 1728.75 49.79 / 49.79 Output Total 250 / 250 500 / 500 Balance 1800 / 1800 1228.75 / 1228.75 49.79 / 49.79 Lab / Micro Data 10/13/25 05:26 10/13/25 05:31 Labs: Laboratory Results - last 24 hr 10/12/25 10:04: POC Glucose 59 L 10/12/25 10:34: POC Glucose 76 10/12/25 15:24: POC Glucose 92 10/12/25 20:29: POC Glucose 121 H 10/13/25 05:26: WBC 11.5 H, RBC 2.70 L, Hgb 7.7 L, Hct 24.6 L, MCV 91.1, MCH 28.5, MCHC 31.3 L, RDW Std Deviation 50.7 H, RDW Coeff of [place] 15.2 H, Plt Count 230, MPV 9.3, Immature Gran % (Auto) 0.900, Neut % (Auto) 82.4 H, Lymph % (Auto) 5.1 L, [place] % (Auto) 8.4, Eos % (Auto) 2.6, Baso % (Auto) 0.6, Absolute Neuts (auto) 9.5 H, Absolute Lymphs (auto) 0.59 L, Nucleated RBC % 0 10/13/25 05:31: Sodium 144, Potassium 3.2 L, Chloride 111 H, Carbon Dioxide 20.7 L, Anion Gap 13, BUN 41 H, Creatinine 4.41 H, Estim Creat Clear Calc 11.38 L, E st GFR (MDRD) Non-Af 10 L, BUN/Creatinine Ratio 9.2 L, Glucose 113 H, Calcium 7.6 10/13/25 05:51: POC Glucose 130 H Micro: Microbiology 10/07/25 09:31 Blood Culture (Wb) - Anticubital Left Blood Culture - Final No growth in 5 days. 10/07/25 09:08 Blood Culture (Wb) - Anticubital Right Blood Culture - Final No growth in 5 days. 10/07/25 09:07 Urine, Catheterized Urine Culture - Final Escherichia coli 10/07/25 15:30 Sputum, Induced/Lukens Gram Stain - Final 10/07/25 15:30 Sputum, Induced/Lukens Respiratory Culture - Final Mixed normal respiratory den. No Streptococcus pneumoniae, beta-hemolytic Streptococcus or Staphylococcus aureus isolated. 10/08/25 07:57 Nasal Secretion MRSA (PCR) - Final 10/07/25 09:52 Mucosa - Nose SARS-CoV-2, Influenza & RSV (PCR) - Final Rhythm Strip Rhythm Strip: Junctional rhythm Rate: 71 Ectopy: None Physical Exam Narrative GENERAL: cooperative HEENT: Atraumatic; normocephalic EYES; Anicteric, Normal Conjunctiva NECK; supple, normal thyroid, RESPIRATORY: Diminished to auscultation CARDIOVASCULAR: Regular S1 S2, GI: soft, normoactive bowel sounds, : No Renal angle tenderness; EXTREMITIES: No edema, no clubbing, MUSCULOSKELETAL: Right upper extremity immobilized with significant swelling of the forearm NEURO: Awake; no lateralizing signs. SKIN: No Rash PSYCH; Flat affect Assessment & Plan Assessment/Plan (1) Acute hypercapnic respiratory failure: (2) Metabolic encephalopathy: (3) Humerus fracture: (4) Edema: PLAN: Plan Patient is a 80-year-old lady resident at an assisted living facility who was brought to the emergency department with confusion and hypoxia.. Patient was admitted to monitored bed respiratory status deteriorated resulting in patient being intubated. Imaging studies demonstrated comminuted proximal humerus fracture on the right involving the surgical neck and greater tuberosity 1. Acute metabolic encephalopathy ? Secondary to acute hypoxia. Management involved underlying etiology 2. Acute hypoxic respiratory failure ? Secondary to pneumonia CT of the chest demonstratedDependent atelectasis and/or consolidation in the bilateral lower lobes.. Patient was intubated hours after her admission given worsening respiratory symptoms. Was extubated on 10/09/2025 and has subsequently been maintained on supplemental oxygen 3.. Right humeral fracture Imaging studies demonstrated comminuted proximal humerus fracture on the right involving the surgical neck and greater tuberosity. Patient was seen in consultation by Dr. Cruz nonsurgical management recommended 4. Diabetes mellitus type II -patient's oral hypoglycemics held. Placed on long acting insulin, Accu-Cheks a.c. and at bedtime and covered with sliding scale insulin 5. Significant swelling involving the right upper extremity -venous duplex negative for DVT 6. Hypertension ? Blood pressure controlled, home medications continued with dose adjustment as needed 7. Anemia ? Secondary to chronic disorder monitoring H&H and transfuse if patient becomes symptomatic or hemoglobin falls below 7 8. Chronic kidney disease stage IV ? Kidney function at baseline patient has been seen in consultation by nephrology 9. Class III obesity with BMI of 42 ? Complicating care weight loss advised 10. History of previous duodenal ulcer ? Patient is on PPI 11. History of microscopic colitis ? Patient is on budesonide 12. Depression with anxiety ? Patient on citalopram continue 14. Diabetes mellitus type 2 ? Patient is on long-acting insulin did continue at home dose in addition to Accu-Cheks AC and at bedtime with sliding scale coverage as well as 1800 ADA diet 15. Osteoporosis ? Patient is on alendronate 16. Hypokalemia ? Corrected per protocol 17. DVT prophylaxis ? On enoxaparin Time spent in the patient's overall evaluation,decision-making process, review of diagnostic data, adjustment of management, discussion with other providers, nursing nursing and ancillary staff involved in patient's care documentation, 38 Minutes Charges/Coding Visit Charges Inpatient E&M: 98476 Subs Hosp L2
--- NOTE | 2025-10-13 10:29 | CASEMGMT ---
Addendum entered by Kortney Roberto 10/13/25 12:21: Pt can return while precert is pending. DEBRA CM updated. Original Note: Discharge Planning Updates sent via [facility] to [facility] with note asking if pt can return while precert is pending. Awaiting response. Kortney Roberto DC Planning Asst.
[2025-10-13 11:15] VITALS: PULSE 71; RESP 16
--- NOTE | 2025-10-13 12:37 | DS.PCM_ITS ---
Providers Date of Admission: 10/07/25 Primary Care Physician: Dr. Elena Mims, Consultations 10/07/25 14:57 Consult: Fire Patroller / Pulmonary Medicine Routine Consulting Provider: Pulmonary Medicine minh Ivelisse Reason for Consult: Vent management EMERGENT Consult: No Notified: Yes Date Notified: 10/07/25 Time Notified: 14:57 Method of Notification: Verbal 10/08/25 08:29 Consult: Orthopedics Routine Consulting Provider: Frederick Curz Reason for Consult: Acute displaced comminuted fracture of the right humeral head/surgical neck EMERGENT Consult: No MD Notified: Yes Date Notified: 10/08/25 Time Notified: 08:46 Method of Notification: Text 10/09/25 09:52 Consult: Nephrology Routine Consulting Provider: Chelsie Robertson Reason for Consult: OSVALDO on CKD EMERGENT Consult: No MD Notified: Yes Date Notified: 10/09/25 Time Notified: 09:52 Method of Notification: Answering Service Reason For Visit: CONFUSION Diagnosis Discharge Diagnosis (1) Acute hypercapnic respiratory failure: Status: Acute Code(s): J96.02 - Acute respiratory failure with hypercapnia (2) Metabolic encephalopathy: Status: Acute Code(s): G93.41 - Metabolic encephalopathy (3) Humerus fracture: Status: Acute Code(s): S42.309A - Unspecified fracture of shaft of humerus, unspecified arm, initial encounter for closed fracture (4) Edema: Status: Acute Code(s): R60.9 - Edema, unspecified Plan Patient is a 80-year-old lady resident at an assisted living facility who was brought to the emergency department with confusion and hypoxia.. Patient was admitted to monitored bed respiratory status deteriorated resulting in patient being intubated. Imaging studies demonstrated comminuted proximal humerus fracture on the right involving the surgical neck and greater tuberosity 1. Acute metabolic encephalopathy ? Secondary to acute hypoxia. Management involved underlying etiology 2. Acute hypoxic respiratory failure ? Secondary to pneumonia CT of the chest demonstratedDependent atelectasis and/or consolidation in the bilateral lower lobes.. Patient was intubated hours after her admission given worsening respiratory symptoms. Was extubated on 10/09/2025 and has subsequently been maintained on supplemental oxygen 3.. Right humeral fracture Imaging studies demonstrated comminuted proximal humerus fracture on the right involving the surgical neck and greater tuberosity. Patient was seen in consultation by Dr. Cruz nonsurgical management recommended 4. Diabetes mellitus type II -patient's oral hypoglycemics held. Placed on long acting insulin, Accu-Cheks a.c. and at bedtime and covered with sliding scale insulin 5. Significant swelling involving the right upper extremity -venous duplex negative for DVT 6. Hypertension ? Blood pressure controlled, home medications continued with dose adjustment as needed 7. Anemia ? Secondary to chronic disorder monitoring H&H and transfuse if patient becomes symptomatic or hemoglobin falls below 7 8. Chronic kidney disease stage IV ? Kidney function at baseline patient has been seen in consultation by nephrology ? Patient kidney function did remain stable patient did not require renal replacement therapy 9. Class III obesity with BMI of 42 ? Complicating care weight loss advised 10. History of previous duodenal ulcer ? Patient is on PPI 11. History of microscopic colitis ? Patient is on budesonide 12. Depression with anxiety ? Patient on citalopram continue 14. Diabetes mellitus type 2 ? Patient is on long-acting insulin did continue at home dose in addition to Accu-Cheks AC and at bedtime with sliding scale coverage as well as 1800 ADA diet 15. Osteoporosis ? Patient is on alendronate 16. Hypokalemia ? Corrected per protocol 17. DVT prophylaxis ? On enoxaparin Time spent in the patient's overall evaluation,decision-making process, review of diagnostic data, adjustment of management, discussion with other providers, nursing nursing and ancillary staff involved in patient's care documentation, 38 Minutes Medications at Discharge Home Medications folic acid 1 mg tablet 1 mg PO DAILY@0800 SUPPLEMENT 01/21/17 calcium 600 mg (as carbonate)-vitamin D3 20 mcg (800 unit) tablet (Caltrate with Vitamin D3) 1 tab PO DAILY SUPPLEMENT 03/05/19 citalopram 20 mg tablet 20 mg PO [facility] mental health 01/22/22 pentoxifylline 400 mg tablet,extended release 400 mg PO DAILY PAD 02/15/24 vitamin E 268 mg (400 unit) capsule 268 mg PO DAILY Supplement 02/15/24 ferrous sulfate 325 mg (65 mg iron) tablet (FeroSul) 325 mg PO DAILY Supplement 06/05/24 amlodipine 5 mg tablet 5 mg PO DAILY 30 days #30 tabs 01/11/25 aspirin 81 mg capsule 81 mg PO DAILY 05/04/25 insulin glargine 100 unit/mL (3 mL) subcutaneous pen (Lantus Solostar U-100 Insulin) 12 unit subcut BID 05/04/25 pantoprazole 40 mg tablet,delayed release 40 mg PO DAILY 05/04/25 acetaminophen 325 mg tablet 650 mg (2 x 325 mg) PO Q6H PRN PRN Pain 1-10 Or Fever >100.7 #0 tabs 05/09/25 alendronate 70 mg tablet 70 mg PO QWEEK #14 tabs 09/16/25 budesonide 3 mg capsule,delayed,extended release 6 mg PO QAM Stomach Lining 09/18/25 metoprolol succinate 50 mg tablet,extended release 24 hr 100 mg PO DAILY 09/18/25 potassium chloride 20 mEq tablet,extended release(part/cryst) 20 meq PO DAILY 09/18/25 nystatin 100,000 unit/gram topical powder (Nystop) 1 applic topical BID 10/07/25 Physical Exam Narrative GENERAL: cooperative HEENT: Atraumatic; normocephalic EYES; Anicteric, Normal Conjunctiva NECK; supple, normal thyroid, RESPIRATORY: Diminished to auscultation CARDIOVASCULAR: Regular S1 S2, GI: soft, normoactive bowel sounds, : No Renal angle tenderness; EXTREMITIES: No edema, no clubbing, MUSCULOSKELETAL: Right upper extremity immobilized with significant swelling of the forearm NEURO: Awake; no lateralizing signs. SKIN: No Rash PSYCH; Flat affect Weight / BMI Weight Weight: 102.5 kg Body Mass Index (BMI) 41.5 ABG / Lab / Microbiology Data 10/13/25 05:26 10/13/25 05:31 Laboratory: Laboratory Results - last 24 hr 10/12/25 10:34: POC Glucose 76 10/12/25 15:24: POC Glucose 92 10/12/25 20:29: POC Glucose 121 H 10/13/25 05:26: WBC 11.5 H, RBC 2.70 L, Hgb 7.7 L, Hct 24.6 L, MCV 91.1, MCH 28.5, MCHC 31.3 L, RDW Std Deviation 50.7 H, RDW Coeff of [place] 15.2 H, Plt Count 230, MPV 9.3, Immature Gran % (Auto) 0.900, Neut % (Auto) 82.4 H, Lymph % (Auto) 5.1 L, [place] % (Auto) 8.4, Eos % (Auto) 2.6, Baso % (Auto) 0.6, Absolute Neuts (auto) 9.5 H, Absolute Lymphs (auto) 0.59 L, Nucleated RBC % 0 10/13/25 05:31: Sodium 144, Potassium 3.2 L, Chloride 111 H, Carbon Dioxide 20.7 L, Anion Gap 13, BUN 41 H, Creatinine 4.41 H, Estim Creat Clear Calc 11.38 L, E st GFR (MDRD) Non-Af 10 L, BUN/Creatinine Ratio 9.2 L, Glucose 113 H, Calcium 7.6 10/13/25 05:51: POC Glucose 130 H 10/13/25 11:28: POC Glucose 140 H Microbiology: Microbiology 10/07/25 09:31 Blood Culture (Wb) - Anticubital Left Blood Culture - Final No growth in 5 days. 10/07/25 09:08 Blood Culture (Wb) - Anticubital Right Blood Culture - Final No growth in 5 days. 10/07/25 09:07 Urine, Catheterized Urine Culture - Final Escherichia coli 10/07/25 15:30 Sputum, Induced/Lukens Gram Stain - Final 10/07/25 15:30 Sputum, Induced/Lukens Respiratory Culture - Final Mixed normal respiratory den. No Streptococcus pneumoniae, beta-hemolytic Streptococcus or Staphylococcus aureus isolated. 10/08/25 07:57 Nasal Secretion MRSA (PCR) - Final 10/07/25 09:52 Mucosa - Nose SARS-CoV-2, Influenza & RSV (PCR) - Final D/C Instructions DC O2, CPAP, BIPAP Needs Home O2 Discharge instructions: No Meaningful Use Info Meaningful Use Meaningful Use Diagnoses (Choose all that apply): None applicable Discharge Plan Admission Admit Date/Time: 10/07/25 12:58 Attending Provider: Hamlet Mujica Primary Care Provider: Elena Mims Consulting Providers: Chelsie Robertson; Frederick Cruz; Junior Georges Discharge Orders/Prescriptions Prescriptions: Continued folic acid 1 MG tablet 1 mg PO DAILY@0800 calcium carbonate-vitamin D3 [Caltrate with Vitamin D3] 1 TAB tablet 1 tab PO DAILY citalopram 20 mg tablet 20 mg PO QHS ferrous sulfate [FeroSul] 325 mg (65 mg iron) tablet 325 mg PO DAILY amlodipine 5 mg Tablet 5 mg PO DAILY 30 Days Qty: 30 0RF insulin glargine [Lantus Solostar U-100 Insulin] 100 unit/mL (3 mL) insulin pen 12 unit subcut BID aspirin 81 mg capsule 81 mg PO DAILY pantoprazole 40 mg Tablet,Delayed Release (Dr/Ec) 40 mg PO DAILY acetaminophen 325 mg Tablet 650 mg PO Q6H PRN PRN (Reason: Pain 1-10 Or Fever >100.7) Qty: 0 0RF nystatin [Nystop] 100,000 unit/gram powder 1 applic topical BID pentoxifylline 400 mg tablet extended release 400 mg PO DAILY vitamin E 268 mg (400 unit) capsule 268 mg PO DAILY metoprolol succinate 50 mg tablet extended release 24 hr 100 mg PO DAILY potassium chloride 20 mEq tablet,ER particles/crystals 20 meq PO DAILY budesonide 3 mg capsule,delayed,extend.release 6 mg PO QAM alendronate 70 mg tablet 70 mg PO QWEEK Qty: 14 3RF Referrals / Follow Up: Frederick Cruz DO [Med Staff - Active Staff, Orthopedics] - Within 2 Weeks Elena Mims DO [Primary Care Provider, Internal Medicine] - Within 2 Weeks Disposition Disposition (needs filled in before D/C Order can be placed): Nursing Home Facility Charges/Coding Visit Charges Inpatient E&M: 45416 Disch Hosp >30min
--- NOTE | 2025-10-13 12:46 | CASEMGMT ---
Patient has order to discharge today to [facility] for skilled level of care. Discharge paperwork received from hospitalist. RN ASIF completed transport form. RN ASIF updated discharge conference planning manager to complete discharge, setup transport, and notify family and WVM.
--- NOTE | 2025-10-13 13:00 | PCM.TXEXTCAR ---
Diet Diet Order/Speech Therapy: INPATIENT Hospital Diet / Speech Therapy Order(s) 10/13/25 11:10 Diet: Cardiac - Heart Healthy Food consistency:: Regular Liquid Consistency:: Regular/Thin Type of Dietary Supplement:: Glucerna Shake Diet Comments: 240mL strawberry glucerna shake with dinner Routine Orders/Code Status Routine Lab Work: [facility] (On 10/16/2025) Code Status: DNRCC-A DC O2, CPAP, BIPAP needs Home O2 Discharge instructions: No Wound(s) Left Upper Forearm (Previous IV Site): Wound Type: Puncture Therapies Physical Therapy: Eval and Treat Occupational Therapy: Eval and Treat Problem/Diagnosis (1) Acute hypercapnic respiratory failure: Status: Acute Code(s): J96.02 - Acute respiratory failure with hypercapnia (2) Metabolic encephalopathy: Status: Acute Code(s): G93.41 - Metabolic encephalopathy (3) Humerus fracture: Status: Acute Code(s): S42.309A - Unspecified fracture of shaft of humerus, unspecified arm, initial encounter for closed fracture (4) Edema: Status: Acute Code(s): R60.9 - Edema, unspecified Plan Patient is a 80-year-old lady resident at an assisted living facility who was brought to the emergency department with confusion and hypoxia.. Patient was admitted to monitored bed respiratory status deteriorated resulting in patient being intubated. Imaging studies demonstrated comminuted proximal humerus fracture on the right involving the surgical neck and greater tuberosity 1. Acute metabolic encephalopathy ? Secondary to acute hypoxia. Management involved underlying etiology 2. Acute hypoxic respiratory failure ? Secondary to pneumonia CT of the chest demonstratedDependent atelectasis and/or consolidation in the bilateral lower lobes.. Patient was intubated hours after her admission given worsening respiratory symptoms. Was extubated on 10/09/2025 and has subsequently been maintained on supplemental oxygen 3.. Right humeral fracture Imaging studies demonstrated comminuted proximal humerus fracture on the right involving the surgical neck and greater tuberosity. Patient was seen in consultation by Dr. Cruz nonsurgical management recommended 4. Diabetes mellitus type II -patient's oral hypoglycemics held. Placed on long acting insulin, Accu-Cheks a.c. and at bedtime and covered with sliding scale insulin 5. Significant swelling involving the right upper extremity -venous duplex negative for DVT 6. Hypertension ? Blood pressure controlled, home medications continued with dose adjustment as needed 7. Anemia ? Secondary to chronic disorder monitoring H&H and transfuse if patient becomes symptomatic or hemoglobin falls below 7 8. Chronic kidney disease stage IV ? Kidney function at baseline patient has been seen in consultation by nephrology ? Patient kidney function did remain stable patient did not require renal replacement therapy 9. Class III obesity with BMI of 42 ? Complicating care weight loss advised 10. History of previous duodenal ulcer ? Patient is on PPI 11. History of microscopic colitis ? Patient is on budesonide 12. Depression with anxiety ? Patient on citalopram continue 14. Diabetes mellitus type 2 ? Patient is on long-acting insulin did continue at home dose in addition to Accu-Cheks AC and at bedtime with sliding scale coverage as well as 1800 ADA diet 15. Osteoporosis ? Patient is on alendronate 16. Hypokalemia ? Corrected per protocol 17. DVT prophylaxis ? On enoxaparin Time spent in the patient's overall evaluation,decision-making process, review of diagnostic data, adjustment of management, discussion with other providers, nursing nursing and ancillary staff involved in patient's care documentation, 38 Minutes Allergies/Procedures Done in Hospital Allergies chlorhexidine Allergy (Verified 10/07/25 08:41) Unknown Iodinated Contrast Media (CONTRASTS) Allergy (Verified 10/07/25 08:41) Other iodine Allergy (Verified 10/07/25 08:41) Unknown latex Allergy (Verified 10/07/25 08:41) Rash vancomycin Adverse Reaction (Intermediate, Verified 10/07/25 08:41) Other Patient states she had hallucinations while taking Type of Care/Length of Stay Estimated LOS: More Than 30 Days Type of Care Needed: Skilled Rehab Potential: Fair Prognosis: Fair Additional Orders/Day of Discharge Day of Discharge: 10/13/25 Dietary and Speech Recommendations Dietitian Recommendations/Changes: Adjust to cardiac diet to manage medical conditions. Will order 240mL strawberry glucerna with dinner. Will monitor weight trends. Discharge Plan Admission Admit Date/Time: 10/07/25 12:58 Attending Provider: Hamlet Mujica Primary Care Provider: Elena Mims Consulting Providers: Chelsie Robertson; Frederick Cruz; Junior Georges Discharge Orders/Prescriptions Prescriptions: Continued folic acid 1 MG tablet 1 mg PO DAILY@0800 calcium carbonate-vitamin D3 [Caltrate with Vitamin D3] 1 TAB tablet 1 tab PO DAILY citalopram 20 mg tablet 20 mg PO QHS ferrous sulfate [FeroSul] 325 mg (65 mg iron) tablet 325 mg PO DAILY amlodipine 5 mg Tablet 5 mg PO DAILY 30 Days Qty: 30 0RF insulin glargine [Lantus Solostar U-100 Insulin] 100 unit/mL (3 mL) insulin pen 12 unit subcut BID aspirin 81 mg capsule 81 mg PO DAILY pantoprazole 40 mg Tablet,Delayed Release (Dr/Ec) 40 mg PO DAILY acetaminophen 325 mg Tablet 650 mg PO Q6H PRN PRN (Reason: Pain 1-10 Or Fever >100.7) Qty: 0 0RF nystatin [Nystop] 100,000 unit/gram powder 1 applic topical BID pentoxifylline 400 mg tablet extended release 400 mg PO DAILY vitamin E 268 mg (400 unit) capsule 268 mg PO DAILY metoprolol succinate 50 mg tablet extended release 24 hr 100 mg PO DAILY potassium chloride 20 mEq tablet,ER particles/crystals 20 meq PO DAILY budesonide 3 mg capsule,delayed,extend.release 6 mg PO QAM alendronate 70 mg tablet 70 mg PO QWEEK Qty: 14 3RF Referrals / Follow Up: Frederick Cruz DO [Med Staff - Active Staff, Orthopedics] - Within 2 Weeks Elena Mims DO [Primary Care Provider, Internal Medicine] - Within 2 Weeks Disposition Disposition (needs filled in before D/C Order can be placed): Residential Facility
--- NOTE | 2025-10-13 13:52 | CASEMGMT ---
Discharge Planning Discharge orders, signed med list, and transport time sent via [facility] to [facility]. Physicians will transport pt by cot at 5p. Nursing, SW, pt, and her niece (Letha) updated. Kortney Roberto DC Planning Asst.
[2025-10-13 15:45] VITALS: BP 153/69; PULSE 68; RESP 18; TEMP 37.3; O2SAT 94
--- NOTE | 2025-10-13 16:41 | NURSING ---
Report called to [facility] at [facility]. Physicians transport set up for 1700.
--- NOTE | 2025-10-13 16:59 | PN.RENAL_ITS ---
Subjective Subjective no new events Objective Data Objective Data Vital Signs: Vital Signs Temp Pulse Resp BP Pulse Ox O2 Del Method O2 Flow Rate 99.2 F H 68 18 153/69 H 94 Nasal Cannula 1.5 10/13/25 15:45 10/13/25 15:45 10/13/25 15:45 10/13/25 15:45 10/13/25 15:45 10/13/25 15:45 10/13/25 15:45 FiO2 30 10/09/25 08:00 Oxygen Flow Rate (L/min) 1.5 Oxygen Delivery Method Nasal Cannula Weight: 102.5 kg Body Mass Index (BMI) 41.5 Intake & Output: Intake and Output for Last 24 Hours 10/11/25 10/12/25 10/13/25 23:59 23:59 23:59 Intake Total 2049 / 2049 1728.75 / 1728.75 459.79 / 459.79 Output Total 250 / 250 500 / 500 200 / 200 Balance 1800 / 1800 1228.75 / 1228.75 259.79 / 259.79 Lab / Micro Data 10/13/25 05:26 10/13/25 05:31 Labs: Laboratory Results - last 24 hr 10/12/25 20:29: POC Glucose 121 H 10/13/25 05:26: WBC 11.5 H, RBC 2.70 L, Hgb 7.7 L, Hct 24.6 L, MCV 91.1, MCH 28.5, MCHC 31.3 L, RDW Std Deviation 50.7 H, RDW Coeff of [place] 15.2 H, Plt Count 230, MPV 9.3, Immature Gran % (Auto) 0.900, Neut % (Auto) 82.4 H, Lymph % (Auto) 5.1 L, [place] % (Auto) 8.4, Eos % (Auto) 2.6, Baso % (Auto) 0.6, Absolute Neuts (auto) 9.5 H, Absolute Lymphs (auto) 0.59 L, Nucleated RBC % 0 10/13/25 05:31: Sodium 144, Potassium 3.2 L, Chloride 111 H, Carbon Dioxide 20.7 L, Anion Gap 13, BUN 41 H, Creatinine 4.41 H, Estim Creat Clear Calc 11.38 L, E st GFR (MDRD) Non-Af 10 L, BUN/Creatinine Ratio 9.2 L, Glucose 113 H, Calcium 7.6 10/13/25 05:51: POC Glucose 130 H 10/13/25 11:28: POC Glucose 140 H 10/13/25 15:46: POC Glucose 118 H Micro: Microbiology 10/07/25 09:31 Blood Culture (Wb) - Anticubital Left Blood Culture - Final No growth in 5 days. 10/07/25 09:08 Blood Culture (Wb) - Anticubital Right Blood Culture - Final No growth in 5 days. 10/07/25 09:07 Urine, Catheterized Urine Culture - Final Escherichia coli 10/07/25 15:30 Sputum, Induced/Lukens Gram Stain - Final 10/07/25 15:30 Sputum, Induced/Lukens Respiratory Culture - Final Mixed normal respiratory den. No Streptococcus pneumoniae, beta-hemolytic Streptococcus or Staphylococcus aureus isolated. 10/08/25 07:57 Nasal Secretion MRSA (PCR) - Final 10/07/25 09:52 Mucosa - Nose SARS-CoV-2, Influenza & RSV (PCR) - Final Radiography Diagnostic Testing: Radiology Impression Venous Doppler Study 10/11/25 15:17 Interpretation Summary Deep veins of the right upper extremity are patent and compressible segmentally. There is no evidence of deep vein thrombosis. Superficial veins of the right upper extremity are patent and compressible segmentally. There is no evidence of superficial vein thrombosis. Limited study Ordering Physician: Junior Georges Referring Physician: Elena Mims M.D. Performed By: Spencer Monroe RVT ??? Rhythm Strip Rhythm Strip: Junctional rhythm Rate: 71 Ectopy: None Physical Exam Narrative Alert and oriented, no apparent distress S1, S2, RRR Clear breath sounds anteriorly. No wheezes rhonchi or rales. On O2 nasal cannula Abdomen soft, nontender No pitting edema bilateral lower legs Assessment & Plan Assessment/Plan (1) Acute kidney injury superimposed on chronic kidney disease: (2) CKD (chronic kidney disease) stage 4, GFR 15-29 ml/min: PLAN: Plan This is a pleasant 80-year-old female with past medical history significant for chronic kidney disease stage IV with baseline creatinine ranging around 2 to 2.5 mg/dL admitted to the hospital for confusion, intubated for airway protection and admitted to ICU. Fortunately patient was able to be extubated this morning. She is also found to have a right proximal humerus fracture, seen by Ortho, conservative treatment at this time. Nephrology consulted in view of elevated creatinine. Last hospitalization from September 18 to September 24 serum creatinine at peak 8.6, by time of discharge improving to 5.39, improved with IV fluids. Did not need USER SUPPORT ANALYST SUPERVISOR. On October 06, admission serum creatinine 3.5 and today creatinine up to 4.48. Potassium normal, bicarb 20. Patient is nonoliguric (has guevara). In past with IV fluids renal function improved. Possible rising serum creatinine from volume mediated changes. No recent DWIGHT, ARB's, or diuretics, no recent IV contrast exposure. Blood pressures acceptable. Renal ultrasound this admission no hydronephrosis. Will start gentle IV fluids. At this time there is no acute indication for renal replacement therapy. I did discuss with patient should renal function not improve and continue to worsen she may be needing renal replacement therapy. Patient voiced understanding and is in agreement for dialysis should it be warranted. Labs ordered for morning. Further orders forthcoming as hospitalization evolves, thank you for allowing us to participate in the care of Ms. Cordova. Assessment and plan reviewed with Dr. Robertson. 10/13. no complaints today. RUE is sling, dependent edema. advised to keep hand elevated. cr is still higher than baseline but stable. potential dc plans today as per primary
--- NOTE | 2025-10-14 09:51 | CASEMGMT ---
Addendum entered by Isha Tucker 10/14/25 11:14: DEBRA GOLD updated by hospitalist that peer to peer was overturned and [facility] to approve skilled level of care. DEBRA GOLD udpated DC Car Coupler to update W. Original Note: DEBRA GOLD received notification from [facility] that [facility] has intent to deny for skilled level of care and offering peer to peer. DEBRA GOLD updated hospitalist and he is willing to complete peer to peer. DEBRA GOLD called [facility] at [phone] option 2 and schedule peer to peer for today with call back between 10am and noon. DEBRA GOLD updated hospitalist. DEBRA GOLD updated DC financial planning consultant to update [facility]. ref#[id number]
== END 2025-10-13 19:13 | disposition skilled nursing facility (03) | DRG 208 ==
LOC: ED 11:07 → ICU 13:19 → PCU 10-10 15:09
PROVIDERS: Internal Medicine Critical Care Medicine; Internal Medicine Nephrology; Emergency Provider Emergency Medicine; PCP Internal Medicine; Visit Provider Internal Medicine
DX: J96.01 Acute respiratory failure with hypoxia (principal); G92.8 Other toxic encephalopathy; J18.9 Pneumonia, unspecified organism; G93.41 Metabolic encephalopathy; A04.71 Enterocolitis due to Clostridium difficile, recurrent; N18.4 Chronic kidney disease, stage 4 (severe); E87.29 Other acidosis; Z68.41 Body mass index [BMI] 40.0-44.9, adult; N17.9 Acute kidney failure, unspecified; Z66 Do not resuscitate; E11.22 Type 2 diabetes mellitus with diabetic chronic kidney disease; D63.8 Anemia in other chronic diseases classified elsewhere; I12.9 Hypertensive chronic kidney disease with stage 1 through stage 4 chronic kidney disease, or unspecified chronic kidney disease; J96.02 Acute respiratory failure with hypercapnia; E78.5 Hyperlipidemia, unspecified; K21.9 Gastro-esophageal reflux disease without esophagitis; G47.33 Obstructive sleep apnea (adult) (pediatric); Z79.4 Long term (current) use of insulin; F41.8 Other specified anxiety disorders; E87.6 Hypokalemia; R54 Age-related physical debility; E66.813 Obesity, class 3; Z79.82 Long term (current) use of aspirin; Z79.899 Other long term (current) drug therapy; M81.0 Age-related osteoporosis without current pathological fracture; Z96.643 Presence of artificial hip joint, bilateral; S92.351G Displaced fracture of fifth metatarsal bone, right foot, subsequent encounter for fracture with delayed healing; X58.XXXA Exposure to other specified factors, initial encounter; Y92.129 Unspecified place in nursing home as the place of occurrence of the external cause; R60.0 Localized edema; Z87.19 Personal history of other diseases of the digestive system
CPT/HCPCS: 31500; 31720; 36415; 36569; 36600; 51702; 70450; 71045; 71250; 73030; 73060; 76770; 80048; 80053; 81001; 82306; 82550; 82803; 82962; 83036; 83605; 84443; 84478; 85025; 85610; 85730; 86850; 86900; 86901; 87040; 87070; 87077; 87086; 87088; 87186; 87205; 87631; 87641; 93005; 93971; 94002; 94003; 94640; 94660; 94668; 94762; 97116; 97163; 97166; 97530; 97535; 97803; 99252; 99285; A4216; G0463

== ENCOUNTER → 2025-10-15 05:00 | Outpatient (REF) | payer SELFPAY | LOC: OLS.WHLEAS 05:00 | PROVIDERS: PCP Internal Medicine; Visit Provider Internal Medicine | DX: S42.291D Other displaced fracture of upper end of right humerus, subsequent encounter for fracture with routine healing (principal); J96.02 Acute respiratory failure with hypercapnia; J96.01 Acute respiratory failure with hypoxia; G93.41 Metabolic encephalopathy; I10 Essential (primary) hypertension ==

== ENCOUNTER 2025-10-16 12:44 | Observation (INO) | payer MEDICARE, SELFPAY ==
[2025-10-16] VITALS (15 sets, daily range): BP systolic 128–153; BP diastolic 59–89; PULSE 80–89; RESP 16–30; TEMP 36.6–37.2; O2SAT 94–98; BMI 43.4
--- NOTE | 2025-10-16 13:38 | EKG12_ITS ---
Test Reason : Blood Pressure : */* mmHG Vent. Rate : 83 BPM Atrial Rate : 83 BPM P-R Int : 164 ms QRS Dur : 82 ms QT Int : 408 ms P-R-T Axes : 52 91 74 degrees QTcB Int : 479 ms Sinus rhythm with Premature atrial complexes Rightward axis Cannot rule out Anterior infarct , age undetermined Abnormal ECG Confirmed by Taras Lilly ([id number]), editor map EFRA RUIZ ([id number]) on 10/17/2025 10:36:33 AM Referred By: Confirmed By: Taras Lilly
--- NOTE | 2025-10-16 13:51 | EX.ED.DYSGE1 ---
HPI History of Present Illness Chief Complaint: General Illness Narrative Narrative: Chief complaint and HPI: 80-year-old female with past medical history of DM, CKD, HTN, HLD presents for evaluation of shortness of breath and cough. History taken by patient as well as provider over the phone, and discharge summary. Patient states today she began having shortness of breath with cough. Patient was 88% on room air per EMS. She denies any fever, chills, chest pain, abdominal pain, nausea, vomiting. She lives in a facility in which they noticed she had increased breathing and wheezing as well as lower extremity edema. The provider sent her in to be admitted. Of note, patient was just discharged from the hospital on 10/13/2025. She was admitted for metabolic encephalopathy secondary to acute hypoxic respiratory failure. She was diagnosed with pneumonia and intubated. Was extubated. She has a right humeral fracture. She was discharged home on supplemental oxygen as needed. Patient endorses swelling to the right upper extremity. On chart review, she had a DVT study on 10/13 that was negative. Review of systems: See HPI Medications: As listed on the chart Allergies: As listed on the chart PFSH: Per chart Vital signs: As listed on the chart. Reviewed. Physical exam: Gen: A&O x3, NAD Head: Normocephalic, atraumatic Eyes: No sclera icterus, conjunctiva clear ENT: Moist mucous membranes Neck: Trachea midline CV: RRR, no murmurs, +1 bilateral pitting peripheral edema Resp: Lungs diminished in the bilateral bases, coarse, expiratory wheezing throughout GI: Abd soft, non-distended, non-tender, no r/r/g Musc: Moves all extremities except for right upper extremity which is in a sling secondary to recent fracture and edematous Skin: Warm, dry Neuro: Alert, oriented, grossly intact, sensation intact Psych: Cooperative, appropriate mood and affect [facility] Medical History Microscopic colitis Anemia CKD (chronic kidney disease) Osteoarthritis History of irritable colon Essential hypertension Dyslipidemia Anxiety Diabetes Kidney disease GI bleed Non-smoker Upper GI bleed Duodenal ulcer Candidiasis of breast History of anemia History of hypertension History of chronic kidney disease History of hyperlipidemia History of diabetes insipidus Candidal intertrigo Stage 3b chronic kidney disease (CKD) Osteoporosis Hyperlipidemia Anemia Hypertension Lymphedema Morbid obesity History of gastroesophageal reflux (GERD) Type II diabetes mellitus Home Medications ?Medication ?Instructions ?Recorded ?Last Taken ?Type folic acid 1 mg tablet 1 mg PO DAILY@0800 SUPPLEMENT 01/21/17 05/03/25 History calcium 600 mg (as 1 tab PO DAILY SUPPLEMENT 03/05/19 05/03/25 History carbonate)-vitamin D3 20 mcg (800 unit) tablet (Caltrate with Vitamin D3) citalopram 20 mg tablet 20 mg PO QHS mental health 01/22/22 05/03/25 History pentoxifylline 400 mg 400 mg PO DAILY PAD 02/15/24 05/03/25 History tablet,extended release vitamin E 268 mg (400 unit) capsule 268 mg PO DAILY Supplement 02/15/24 05/03/25 History ferrous sulfate 325 mg (65 mg 325 mg PO DAILY Supplement 06/05/24 05/03/25 History iron) tablet (FeroSul) amlodipine 5 mg tablet 5 mg PO DAILY 30 days #30 tabs 01/11/25 05/03/25 Rx aspirin 81 mg capsule 81 mg PO DAILY 05/04/25 05/03/25 History pantoprazole 40 mg tablet,delayed 40 mg PO DAILY 05/04/25 05/03/25 History release acetaminophen 325 mg tablet 650 mg (2 x 325 mg) PO Q6H PRN PRN 05/09/25 Unknown Rx Pain 1-10 Or Fever >100.7 #0 tabs alendronate 70 mg tablet 70 mg PO QWEEK #14 tabs 09/16/25 Unknown Rx budesonide 3 mg 6 mg PO QAM Stomach Lining 09/18/25 Unknown History capsule,delayed,extended release metoprolol succinate 50 mg 50 mg PO DAILY 09/18/25 Unknown History tablet,extended release 24 hr potassium chloride 20 mEq 20 meq PO DAILY 09/18/25 Unknown History tablet,extended release(part/cryst) Allergy/AdvReac Type Severity Reaction Status Date / Time chlorhexidine Allergy Unknown Verified 10/16/25 12:48 Iodinated Contrast Media Allergy Other Verified 10/16/25 12:48 (CONTRASTS) iodine Allergy Unknown Verified 10/16/25 12:48 latex Allergy Rash Verified 10/16/25 12:48 vancomycin AdvReac Intermediate Other Verified 10/16/25 12:48 Family History Other Diabetes Surgical History History of elbow surgery History of tonsillectomy and adenoidectomy 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 Social History (Updated 10/16/25 @ 13:18 by Minnie Pittman) household members: none housing: retirement Smoking Status: Never smoker alcohol intake: never substance use type: does not use EXAM Physical Exam Const Vital Signs: 10/16/25 12:45 10/16/25 12:49 10/16/25 12:49 Temperature 99 F 99 F Temperature Source Oral Oral Pulse Rate 84 84 Respiratory Rate 30 H 25 H Respiratory Effort Normal Non-Labored Respiratory Pattern Normal Blood Pressure 146/74 H 149/73 H Blood Pressure Mean 98 98 Pulse Ox 98 97 Oxygen Delivery Method Nasal Cannula Room Air Oxygen Flow Rate (L/min) 2 10/16/25 13:49 10/16/25 13:55 10/16/25 14:05 Temperature 99 F Temperature Source Oral Pulse Rate 80 81 Respiratory Rate 17 16 Respiratory Effort Respiratory Pattern Normal Blood Pressure 140/73 H Blood Pressure Mean 95 Pulse Ox 98 96 Oxygen Delivery Method Nasal Cannula Nasal Cannula Oxygen Flow Rate (L/min) 2 2 10/16/25 15:12 Temperature 98.9 F Temperature Source Oral Pulse Rate 87 Respiratory Rate 20 H Respiratory Effort Respiratory Pattern Blood Pressure 153/70 H Blood Pressure Mean 97 Pulse Ox 97 Oxygen Delivery Method Nasal Cannula Oxygen Flow Rate (L/min) 1 MDM MDM MDM Narrative Medical decision making narrative: 80-year-old female with past medical history of DM, CKD, HTN, HLD presents for evaluation of shortness of breath and cough. History taken by patient as well as provider over the phone, and discharge summary. Patient states today she began having shortness of breath with cough. She was found to be 88% on room air per EMS. She lives in a facility in which they noticed she had increased breathing and wheezing as well as lower extremity edema. The provider sent her in to be admitted. Of note, patient was just discharged from the hospital on 10/13/2025. She was admitted for metabolic encephalopathy secondary to acute hypoxic respiratory failure. She was diagnosed with pneumonia and intubated. Was she was discharged back to the facility on oxygen as needed. Extubated. She has a right humeral fracture. Patient endorses swelling to the right upper extremity. On chart review, she had a DVT study on 10/13 that was negative. Differential diagnosis includes but is not limited to pneumonia, viral illness, CHF, ACS. Solu-Medrol and DuoNebs ordered for wheezing. Respiratory workup ordered. CBC with leukocytosis of 14.7. This is downtrending from previously. Patient has baseline anemia of 9.7. Platelets unremarkable. CMP shows hypokalemia of 3. Will add out of magnesium. P.o. potassium ordered. Patient has baseline CKD with a BUN of 35 and a creatinine of 3.53. No transaminitis. Lactic acid unremarkable. Troponin 67. Patient not having chest pain. Will obtain delta. Aspirin ordered. Troponin may be elevated from CKD. BNP elevated at 5886. COVID, flu, RSV negative. Repeat troponin 62. Magnesium level low at 1.2. IV magnesium ordered. On reevaluation, patient still endorsing shortness of breath. Wheezing has improved but is still intermittent. I suspect her symptoms may be secondary to a viral illness as she has no history of COPD. Given that the provider the facility sent the patient in to be admitted as well as her symptomatic dyspnea and electrolyte abnormalities, patient was discussed with the hospitalist who accepted admission. Patient was updated on the results of her and understand the plan. EKG: Interpreted by me/EM physician: EKG shows normal sinus rhythm with PACs. No acute ischemic changes. Heart rate 83. Diagnostic: Interpreted by me/EM physician: X-ray of the chest was personally viewed and interpreted by me, ED physician. Improvement Chest x-ray shows improvement from previous chest x-ray. No pneumonia, effusion, pneumothorax. Patient has cardiomegaly. Impression: 1. Shortness of breath, suspect viral illness with wheezing 2. Hypokalemia 3. Hypomagnesemia 4. CKD 5. Elevated troponin likely secondary to CKD 6. Mild bilateral peripheral edema Lab Data Labs: Laboratory Results - last 24 hr 10/16/25 10/16/25 13:00 15:29 WBC 14.7 H RBC 3.37 L Hgb 9.7 L Hct 30.8 L MCV 91.4 MCH 28.8 MCHC 31.5 L RDW Std Deviation 51.8 H RDW Coeff of Juan Diego 15.6 H Plt Count 349 MPV 9.7 Immature Gran % (Auto) 2.500 H Neut % (Auto) 73.7 H Lymph % (Auto) 6.7 L Gil[place] % (Auto) 11.5 H Eos % (Auto) 5.0 Baso % (Auto) 0.6 Absolute Neuts (auto) 10.8 H Absolute Lymphs (auto) 0.99 Nucleated RBC % 0 Differential Comment COMMENT Sodium 143 Potassium 3.0 L Chloride 106 Carbon Dioxide 23.2 Anion Gap 14 BUN 35 H Creatinine 3.54 H Estim Creat Clear Calc 14.32 L Est GFR (MDRD) Non-Af 13 L BUN/Creatinine Ratio 9.9 L Glucose 128 H Lactic Acid < 1.0 Calcium 8.1 Magnesium 1.2 L Total Bilirubin 0.46 AST 14 ALT < 5 Alkaline Phosphatase 97 Troponin T High Sens 67 H* Troponin T Hi Sens 2 Hr 62 H* NT pro BNP II 5886 H Total Protein 6.4 Albumin 3.2 L Globulin 3.3 Albumin/Globulin Ratio 1.0 Radiography Diagnostic Testing: Clinical Impression(s) from Imaging Studies Chest X-Ray 10/16/25 13:55 IMPRESSION: The study is limited by some degree of hypoinflation, and by significant patient motion on the lateral view. Interval resolution of the previous right basilar atelectasis. Interval improvement of the left basilar atelectasis/airspace disease is noted. Interval removal of the right PICC line and endotracheal tube, as well as the nasogastric tube. No evidence of pulmonary edema. Questionable very small left pleural effusion. No pneumothorax is seen. No interval osseous change noted. The displaced proximal right humeral fracture is again seen. The cardiomediastinal silhouette is unchanged, without evidence of cardiomegaly. Reading Location: [place] [address] Discharge Plan Triage Chief Complaint: General Illness ED Provider: Damon Sanders Dx/Rx/DC Orders Prescriptions: No Action folic acid 1 MG tablet 1 mg PO DAILY@0800 calcium carbonate-vitamin D3 [Caltrate with Vitamin D3] 1 TAB tablet 1 tab PO DAILY citalopram 20 mg tablet 20 mg PO QHS ferrous sulfate [FeroSul] 325 mg (65 mg iron) tablet 325 mg PO DAILY amlodipine 5 mg Tablet 5 mg PO DAILY 30 Days Qty: 30 0RF aspirin 81 mg capsule 81 mg PO DAILY pantoprazole 40 mg Tablet,Delayed Release (Dr/Ec) 40 mg PO DAILY acetaminophen 325 mg Tablet 650 mg PO Q6H PRN PRN (Reason: Pain 1-10 Or Fever >100.7) Qty: 0 0RF pentoxifylline 400 mg tablet extended release 400 mg PO DAILY vitamin E 268 mg (400 unit) capsule 268 mg PO DAILY metoprolol succinate 50 mg tablet extended release 24 hr 50 mg PO DAILY potassium chloride 20 mEq tablet,ER particles/crystals 20 meq PO DAILY budesonide 3 mg capsule,delayed,extend.release 6 mg PO QAM alendronate 70 mg tablet 70 mg PO QWEEK Qty: 14 3RF Primary Care Provider: Elena Mims Referrals: Elena Mims DO [Primary Care Provider, Internal Medicine] Print Language: Uzbek
[2025-10-16 13:54] LABS: Hematocrit 30.8 % (37-47); Hemoglobin 9.7 g/dL (12.0-15.0); Immature Granulocytes Count 0.370 X10^3/uL (0.0-0.0); Mean Corp Hgb Conc 31.5 g/dL (32-36); Mean Corpuscular Volume 91.4 fL (81-99); Mean Platelet Vol. 9.7 fl (6.2-12.0); NRBC Flagged by Analyzer 0 % (0-5); POSITIVE DIFFERENTIAL YES; Platelet Count 349 K/mm3 (150-450); RBC Distribution Width CV 15.6 % (11.6-14.6); RBC Distribution Width SD 51.8 fl (35.1-43.9); Red Blood Count 3.37 M/mm3 (4.2-5.4); White Blood Count 14.7 K/mm3 (4.4-11.0)
--- NOTE | 2025-10-16 13:55 | RAD_ITS ---
PROCEDURE: CHEST PA AND LATERAL 10/16/2025 REASON FOR EXAM: SOB TECHNIQUE: Procedure Code: RADCXR Modality: DX Procedure: CHEST PA AND LATERAL COMPARISON: Chest x-ray 10/08/2025 RAD/Chest PA and Lateral IMPRESSION: The study is limited by some degree of hypoinflation, and by significant patien t motion on the lateral view. Interval resolution of the previous right basilar atelectasis. Interval improvement of the left basilar atelectasis/airspace disease is noted. Interval removal of the right PICC line and endotracheal tube, as well as the n asogastric tube. No evidence of pulmonary edema. Questionable very small left pleural effusion. No pneumothorax is seen. No interval osseous change noted. The displaced proximal right humeral fractur e is again seen. The cardiomediastinal silhouette is unchanged, without evidence of cardiomegaly . Reading Location: [place] [address]
[2025-10-16 14:03] LABS: Differential Indicated SCAN CRITERIA MET
[2025-10-16 14:31] LABS: AST(SGOT) 14 U/L (<=31); Alanine Aminotransfer ALT/SGPT < 5 U/L (<=34); Albumin, Serum 3.2 g/dL (3.4-4.8); Alkaline Phosphatase 97 U/L (35-104); Anion Gap 14 (5-15); BUN 35 mg/dL (4-19); BUN/Creat Ratio 9.9 RATIO (10-20); Calcium,Total 8.1 mg/dL (7.6-11.0); Carbon Dioxide 23.2 mmol/L (21.0-32.0); Chloride 106 mmol/L (98-108); Estimated Creatinine Clearance 14.32 ml/min (50-250); Globulin 3.3 g/dL (2.2-4.2); Glucose 128 mg/dL (70-99); Potassium 3.0 mmol/L (3.3-5.1)
[2025-10-16 14:50] LABS: Pro- Brain NATRIURETIC PEPTIDE 5886 pg/mL (<=1800); Troponin T High Sensitivity 67 ng/L (<=14)
[2025-10-16 16:16] LABS: Troponin T High Sens 2 HR 62 ng/L (<=14)
[2025-10-16 16:17] LABS: Magnesium 1.2 mg/dL (1.5-2.2)
[2025-10-16] MEDS: Magnesium Sulfate 2 GM in Dextrose 5%-Water (100mL Bag) 100 ML IV (17:05)
[2025-10-16] MEDS: Potassium Chloride Oral Soln 20 MEQ/15 ML UDC 40 MEQ PO (17:06)
--- NOTE | 2025-10-16 17:47 | PCM.HP.STD ---
HPI - General General Date of Admission: 10/16/25 Date of Service: 10/16/25 Chief Complaint: SOB and wheezing HPI Narrative AZUL NAVARRETE, is a 80-year-old female history of CKD, GERD, depression, recent right arm fracture who presented to [facility] ED 10/16/2025 due to increased shortness of breath with cough today. Resides at a facility and today they noticed she had increased shortness of breath and wheezing so they sent her to the hospital to be admitted. She was recently discharged 10/13/2025 after an admission for metabolic encephalopathy secondary to acute hypoxic respiratory failure due to pneumonia. She did require intubation at that time and was subsequently extubated. In the ED temp 99, heart rate 84, respiratory rate 30, blood pressure 146/74, pulse ox 98 on 2 L nasal cannula. White count 14.7, hemoglobin 9.7, potassium 3.0 with BUN of 35, creatinine 3.54, normal lactic acid, proBNP 5886 though no previous proBNP has been obtained, troponin of 67 with a repeat of 62 without any reports of chest pain. Chest x-ray shows improvement of her airspace disease with no evidence of pulmonary edema. She had significant wheezing that did improve with steroids and nebs however facility was uncomfortable with taking her back and requested admission. Hospitalist contacted for admission. Patient evaluated at bedside. She reports that she had a bloody nose earlier today immediately afterwards she was more short of breath and was coughing up bloody mucus. Denies any increased shortness of breath before that time, no further bloody nose at this time, still some cough and wheezing, shortness of breath a little bit better than it was earlier. No new swelling in lower extremities, no other new or acute complaints [facility] Medical History Microscopic colitis Anemia CKD (chronic kidney disease) Osteoarthritis History of irritable colon Essential hypertension Dyslipidemia Anxiety Diabetes Kidney disease GI bleed Non-smoker Upper GI bleed Duodenal ulcer Candidiasis of breast History of anemia History of hypertension History of chronic kidney disease History of hyperlipidemia History of diabetes insipidus Candidal intertrigo Stage 3b chronic kidney disease (CKD) Osteoporosis Hyperlipidemia Anemia Hypertension Lymphedema Morbid obesity History of gastroesophageal reflux (GERD) Type II diabetes mellitus Home Medications ?Medication ?Instructions ?Recorded ?Last Taken ?Type folic acid 1 mg tablet 1 mg PO DAILY@0800 SUPPLEMENT 01/21/17 05/03/25 History calcium 600 mg (as 1 tab PO DAILY SUPPLEMENT 03/05/19 05/03/25 History carbonate)-vitamin D3 20 mcg (800 unit) tablet (Caltrate with Vitamin D3) citalopram 20 mg tablet 20 mg PO QHS mental health 01/22/22 05/03/25 History pentoxifylline 400 mg 400 mg PO DAILY PAD 02/15/24 05/03/25 History tablet,extended release vitamin E 268 mg (400 unit) capsule 268 mg PO DAILY Supplement 02/15/24 05/03/25 History ferrous sulfate 325 mg (65 mg 325 mg PO DAILY Supplement 06/05/24 05/03/25 History iron) tablet (FeroSul) amlodipine 5 mg tablet 5 mg PO DAILY 30 days #30 tabs 01/11/25 05/03/25 Rx aspirin 81 mg capsule 81 mg PO DAILY 05/04/25 05/03/25 History pantoprazole 40 mg tablet,delayed 40 mg PO DAILY 05/04/25 05/03/25 History release acetaminophen 325 mg tablet 650 mg (2 x 325 mg) PO Q6H PRN PRN 05/09/25 Unknown Rx Pain 1-10 Or Fever >100.7 #0 tabs alendronate 70 mg tablet 70 mg PO QWEEK #14 tabs 09/16/25 Unknown Rx budesonide 3 mg 6 mg PO QAM Stomach Lining 09/18/25 Unknown History capsule,delayed,extended release metoprolol succinate 50 mg 50 mg PO DAILY 09/18/25 Unknown History tablet,extended release 24 hr potassium chloride 20 mEq 20 meq PO DAILY 09/18/25 Unknown History tablet,extended release(part/cryst) Allergy/AdvReac Type Severity Reaction Status Date / Time chlorhexidine Allergy Unknown Verified 10/16/25 12:48 Iodinated Contrast Media Allergy Other Verified 10/16/25 12:48 (CONTRASTS) iodine Allergy Unknown Verified 10/16/25 12:48 latex Allergy Rash Verified 10/16/25 12:48 vancomycin AdvReac Intermediate Other Verified 10/16/25 12:48 Family History Other Diabetes Surgical History History of elbow surgery History of tonsillectomy and adenoidectomy 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 Social History (Updated 10/16/25 @ 13:18 by Minnie Pittman) household members: none housing: long-term Smoking Status: Never smoker alcohol intake: never substance use type: does not use ROS ROS Narrative General: Denies fever/chills HENT: Denies headache, nosebleed earlier which is stopped, denies sore throat EYES: Denies changes in vision Resp: Has had a cough since her nosebleed and some increased shortness of breath Cardiac: Denies chest pain GI: Denies abdominal pain, denies changes in bowel, denies nausea/vomiting : Denies changes in urination Extremity: Denies any changes in swelling lower extremities MSK: Right upper extremity still in sling Neuro: Denies any numbness/tingling Heme: Has some scattered bruising Skin: Denies rashes Psychiatric: No complaints voiced Patient's Goals Of Care . What would you like to achieve or improve as a result of your hospital stay?: For my breathing to get better Vital Signs Vital Signs Vital Signs: 10/16/25 12:45 10/16/25 12:49 10/16/25 12:49 Temperature 99 F 99 F Temperature Source Oral Oral Pulse Rate 84 84 Respiratory Rate 30 H 25 H Respiratory Effort Normal Non-Labored Respiratory Pattern Normal Blood Pressure 146/74 H 149/73 H Blood Pressure Mean 98 98 Pulse Ox 98 97 Oxygen Delivery Method Nasal Cannula Room Air Oxygen Flow Rate (L/min) 2 10/16/25 13:49 10/16/25 13:55 10/16/25 14:05 Temperature 99 F Temperature Source Oral Pulse Rate 80 81 Respiratory Rate 17 16 Respiratory Effort Respiratory Pattern Normal Blood Pressure 140/73 H Blood Pressure Mean 95 Pulse Ox 98 96 Oxygen Delivery Method Nasal Cannula Nasal Cannula Oxygen Flow Rate (L/min) 2 2 10/16/25 15:12 10/16/25 16:00 10/16/25 17:00 Temperature 98.9 F 99.0 F 98.9 F Temperature Source Oral Oral Oral Pulse Rate 87 88 83 Respiratory Rate 20 H 20 H 20 H Respiratory Effort Respiratory Pattern Blood Pressure 153/70 H 130/89 H 143/76 H Blood Pressure Mean 97 102 98 Pulse Ox 97 97 97 Oxygen Delivery Method Nasal Cannula Nasal Cannula Nasal Cannula Oxygen Flow Rate (L/min) 1 1 1 10/16/25 17:32 Temperature 98.9 F Temperature Source Pulse Rate 83 Respiratory Rate 20 H Respiratory Effort Respiratory Pattern Blood Pressure 143/76 H Blood Pressure Mean 98 Pulse Ox 97 Oxygen Delivery Method Oxygen Flow Rate (L/min) Weight Weight: 104.326 kg Body Mass Index (BMI) 43.4 Physical Exam Narrative General: Alert,, no apparent distress HEENT: Atraumatic, normocephalic, difficult to see although in the back of throat but possibly some small amount of residual blood very back of throat Eyes: Anicteric, normal conjunctiva, extraocular movements grossly intact Neck: Supple Respiratory: Does not appear overtly distressed, difficult to hear lung sounds due to transmitted upper airway sounds that partially clear with cough Cardiovascular: Regular rate GI: Soft, nontender, nondistended Extremities: Mild lower extremity edema Musculoskeletal: Right upper extremity in sling Neuro: No overt focal neurological deficits Skin: No rashes appreciated Psych: Cooperative Results Lab / Micro Data 10/16/25 13:00 10/16/25 13:00 Labs: Laboratory Results - last 24 hr 10/16/25 13:00: WBC 14.7 H, RBC 3.37 L, Hgb 9.7 L, Hct 30.8 L, MCV 91.4, MCH 28.8, MCHC 31.5 L, RDW Std Deviation 51.8 H, RDW Coeff of Juan Diego 15.6 H, Plt Count 349, MPV 9.7, Immature Gran % (Auto) 2.500 H, Neut % (Auto) 73.7 H, Lymph % (Auto) 6.7 L, [place] % (Auto) 11.5 H, Eos % (Auto) 5.0, Baso % (Auto) 0.6, Absolute Neuts (auto) 10.8 H, Absolute Lymphs (auto) 0.99, Nucleated RBC % 0, Differential Comment COMMENT, Sodium 143, Potassium 3.0 L, Chloride 106, Carbon Dioxide 23.2, Anion Gap 14, BUN 35 H, Creatinine 3.54 H, Estim Creat Clear Calc 14.32 L, Est GFR (MDRD) Non-Af 13 L, BUN/Creatinine Ratio 9.9 L, Glucose 128 H, Lactic Acid < 1.0, Calcium 8.1, Magnesium 1.2 L, Total Bilirubin 0.46, AST 14, ALT < 5, Alkaline Phosphatase 97, Troponin T High Sens 67 H*, NT pro BNP II 5886 H, Total Protein 6.4, Albumin 3.2 L, Globulin 3.3, Albumin/Globulin Ratio 1.0 10/16/25 15:29: Troponin T Hi Sens 2 Hr 62 H* Micro: Microbiology 10/16/25 13:48 Mucosa - Nose SARS-CoV-2, Influenza & RSV (PCR) - Final Imaging Radiology Impression Chest X-Ray 10/16/25 13:55 IMPRESSION: The study is limited by some degree of hypoinflation, and by significant patient motion on the lateral view. Interval resolution of the previous right basilar atelectasis. Interval improvement of the left basilar atelectasis/airspace disease is noted. Interval removal of the right PICC line and endotracheal tube, as well as the nasogastric tube. No evidence of pulmonary edema. Questionable very small left pleural effusion. No pneumothorax is seen. No interval osseous change noted. The displaced proximal right humeral fracture is again seen. The cardiomediastinal silhouette is unchanged, without evidence of cardiomegaly. Reading Location: [place] [id number] Assessment & Plan Assessment/Plan (1) Shortness of breath: PLAN: Plan #Shortness of breath -Patient very specifically noted a nosebleed earlier today after which she had coughed up some bloody mucus and is felt a little bit short of breath with cough since that time - Given this directly correlated suspect that patient may have accidentally aspirated some blood contents - No further bloody nose - Does have elevated proBNP and trops however she has CKD, chest x-ray does not note any pulmonary edema, she does not think that she has any increased lower extremity swelling from baseline and sudden onset with history above does not sound consistent with new onset heart failure and do not think this is cardiac in nature. Had recent echocardiogram a couple of months ago with normal LV size and normal LV function with EF of 65%, did have PASP of 56 - Chest x-ray also showing interval improvement in previous airspace disease - Will continue nebs, incentive spirometer, flutter valve - Patient saturating high 90s on only 2 L of nasal cannula - resp panel - If she remains stable suspect she will be able to DC back to facility tomorrow # Hypokalemia and hypomagnesemia - Replace - Repeat in the a.m. - Will be on MedSurg telemetry # Right arm fracture - Arm still in a sling - Outpatient follow-up # CKD stage IV - Quite variable at baseline -avoid nephrotoxic agents - Daily BMPs #GERD -Continue PPI #Hypertension - Continue home amlodipine #Depression/anxiety -Continue home medications #Morbid obesity -BMI documented as 43.5 kg/m? at time of admission -Complicates treatment, prognosis, outcomes -Recommend weight loss and lifestyle changes #DVT ppx: Heparin subcu Marjorie Gallardo MD Charges/Coding Visit Charges Inpatient E&M: 55015 Init Hosp L2
[2025-10-16] MEDS: 0.9% Saline Lock 10 ML Syringe IV (21:34)
[2025-10-16] MEDS: Heparin Injection (Vial) 5,000 UNIT/ML VIAL 5000 UNIT SC (21:34)
[2025-10-16] MEDS: Insulin Glargine-YFGN 100 UNIT/ML Pen 12 UNIT SC (22:38)
[2025-10-17] VITALS (8 sets, daily range): BP systolic 133–142; BP diastolic 64–75; PULSE 68–84; RESP 16–18; TEMP 36.3–36.6; O2SAT 95–99; BMI 43.4
[2025-10-17 01:48] LABS: Xtra Tube EP Lab EXTRA TUBE
[2025-10-17 06:13] LABS: Hematocrit 25.4 % (37-47); Hemoglobin 8.1 g/dL (12.0-15.0); Immature Granulocytes Count 0.220 X10^3/uL (0.0-0.0); Mean Corp Hgb Conc 31.9 g/dL (32-36); Mean Corpuscular Volume 90.1 fL (81-99); Mean Platelet Vol. 9.2 fl (6.2-12.0); NRBC Flagged by Analyzer 0 % (0-5); POSITIVE DIFFERENTIAL YES; Platelet Count 308 K/mm3 (150-450); RBC Distribution Width CV 15.7 % (11.6-14.6); RBC Distribution Width SD 51.8 fl (35.1-43.9); Red Blood Count 2.82 M/mm3 (4.2-5.4); White Blood Count 10.2 K/mm3 (4.4-11.0)
[2025-10-17] MEDS: Heparin Injection (Vial) 5,000 UNIT/ML VIAL 5000 UNIT SC (06:29)
[2025-10-17 06:57] LABS: Anion Gap 14 (5-15); BUN 40 mg/dL (4-19); BUN/Creat Ratio 11.2 RATIO (10-20); Calcium,Total 7.7 mg/dL (7.6-11.0); Carbon Dioxide 18.9 mmol/L (21.0-32.0); Chloride 106 mmol/L (98-108); Estimated Creatinine Clearance 14.16 ml/min (50-250); Glucose 216 mg/dL (70-99); Potassium 3.5 mmol/L (3.3-5.1)
--- NOTE | 2025-10-17 07:38 | PCM.PN.HOSP ---
Reason for Visit Chief Complaint: SOB and wheezing Subjective Subjective Patient is a 80-year-old lady discharge to a intermediate facility following admission for respiratory failure as well as right humeral fracture for which conservative management was recommended by Ortho was brought back to the emergency department with hemoptysis. Chest x-ray did show interval improvement in previous airspace disease it was suspected patient had aspirated. Admitted to regular nursing floor for further management Objective Data Objective Data Vital Signs: Vital Signs Temp Pulse Resp BP Pulse Ox O2 Del Method O2 Flow Rate 97.9 F 74 18 133/64 H 97 Nasal Cannula 2 10/17/25 02:30 10/17/25 02:52 10/17/25 02:30 10/17/25 02:30 10/17/25 02:30 10/17/25 02:30 10/17/25 02:30 Oxygen Flow Rate (L/min) 2 Oxygen Delivery Method Nasal Cannula Weight: 104.3 kg Body Mass Index (BMI) 43.4 Intake & Output: Intake and Output for Last 24 Hours 10/15/25 10/16/25 10/17/25 23:59 23:59 23:59 Intake Total 104 / 104 Output Total 525 / 525 Balance 104 / -146 -525 / -525 Lab / Micro Data 10/17/25 06:01 10/17/25 06:01 Labs: Laboratory Results - last 24 hr 10/16/25 13:00: WBC 14.7 H, RBC 3.37 L, Hgb 9.7 L, Hct 30.8 L, MCV 91.4, MCH 28.8, MCHC 31.5 L, RDW Std Deviation 51.8 H, RDW Coeff of Juan Diego 15.6 H, Plt Count 349, MPV 9.7, Immature Gran % (Auto) 2.500 H, Neut % (Auto) 73.7 H, Lymph % (Auto) 6.7 L, Pershing % (Auto) 11.5 H, Eos % (Auto) 5.0, Baso % (Auto) 0.6, Absolute Neuts (auto) 10.8 H, Absolute Lymphs (auto) 0.99, Nucleated RBC % 0, Differential Comment COMMENT, Sodium 143, Potassium 3.0 L, Chloride 106, Carbon Dioxide 23.2, Anion Gap 14, BUN 35 H, Creatinine 3.54 H, Estim Creat Clear Calc 14.32 L, Est GFR (MDRD) Non-Af 13 L, BUN/Creatinine Ratio 9.9 L, Glucose 128 H, Lactic Acid < 1.0, Calcium 8.1, Magnesium 1.2 L, Total Bilirubin 0.46, AST 14, ALT < 5, Alkaline Phosphatase 97, Troponin T High Sens 67 H*, NT pro BNP II 5886 H, Total Protein 6.4, Albumin 3.2 L, Globulin 3.3, Albumin/Globulin Ratio 1.0 10/16/25 15:29: Troponin T Hi Sens 2 Hr 62 H* 10/16/25 22:12: POC Glucose 234 H 10/17/25 06:01: WBC 10.2, RBC 2.82 L, Hgb 8.1 L, Hct 25.4 L, MCV 90.1, MCH 28.7, MCHC 31.9 L, RDW Std Deviation 51.8 H, RDW Coeff of [place] 15.7 H, Plt Count 308, MPV 9.2, Immature Gran % (Auto) 2.200 H, Neut % (Auto) 90.4 H, Lymph % (Auto) 4.9 L, [place]hing % (Auto) 2.3, Eos % (Auto) 0.0, Baso % (Auto) 0.2, Absolute Neuts (auto) 9.2 H, Absolute Lymphs (auto) 0.50 L, Nucleated RBC % 0, Sodium 138, Potassium 3.5, Chloride 106, Carbon Dioxide 18.9 L, Anion Gap 14, BUN 40 H, Creatinine 3.58 H, Estim Creat Clear Calc 14.16 L, Est GFR (MDRD) Non-Af 12 L, BUN/Creatinine Ratio 11.2, Glucose 216 H, Calcium 7.7 10/17/25 06:29: POC Glucose 211 H Micro: Microbiology 10/17/25 00:25 Stool Clostridioides difficile (PCR) - Final 10/16/25 19:35 Mucosa - Nasopharyngeal Respiratory Panel (PCR) - Final 10/16/25 13:48 Mucosa - Nose SARS-CoV-2, Influenza & RSV (PCR) - Final Radiography Diagnostic Testing: Radiology Impression Chest X-Ray 10/16/25 13:55 IMPRESSION: The study is limited by some degree of hypoinflation, and by significant patient motion on the lateral view. Interval resolution of the previous right basilar atelectasis. Interval improvement of the left basilar atelectasis/airspace disease is noted. Interval removal of the right PICC line and endotracheal tube, as well as the nasogastric tube. No evidence of pulmonary edema. Questionable very small left pleural effusion. No pneumothorax is seen. No interval osseous change noted. The displaced proximal right humeral fracture is again seen. The cardiomediastinal silhouette is unchanged, without evidence of cardiomegaly. Reading Location: [place] [id number] Physical Exam Narrative GENERAL: cooperative HEENT: Atraumatic; normocephalic EYES; Anicteric, Normal Conjunctiva NECK; supple, normal thyroid, RESPIRATORY: Diminished to auscultation CARDIOVASCULAR: Regular S1 S2, GI: soft, normoactive bowel sounds, : No Renal angle tenderness; EXTREMITIES: No edema, no clubbing, MUSCULOSKELETAL: Right significant swelling of the forearm NEURO: Awake; no lateralizing signs. SKIN: No Rash PSYCH; Flat affect Assessment & Plan Assessment/Plan (1) Shortness of breath: PLAN: Plan Patient is a 80-year-old lady discharge to a intermediate facility following admission for respiratory failure as well as right humeral fracture for which conservative management was recommended by Ortho was brought back to the emergency department with hemoptysis. Chest x-ray did show interval improvement in previous airspace disease it was suspected patient had aspirated. Admitted to regular nursing floor for further management 1. Aspiration of blood from epistaxis ? Checks x-ray of the show improvement in previous airspace disease. Patient was monitored overnight and discharged back to her intermediate facility 2. Hypokalemia -Corrected per protocol 3. Hypomagnesemia -Corrected for protocol 4. Right humeral fracture Imaging studies demonstrated comminuted proximal humerus fracture on the right involving the surgical neck and greater tuberosity. Patient was seen in consultation by Dr. Cruz nonsurgical management recommended 5. Diabetes mellitus type II -patient's oral hypoglycemics held. Placed on long acting insulin, Accu-Cheks a.c. and at bedtime and covered with sliding scale insulin 6. Hypertension ? Blood pressure controlled, home medications continued with dose adjustment as needed 7. Anemia ? Secondary to chronic disorder monitoring H&H and transfuse if patient becomes symptomatic or hemoglobin falls below 7 8. Chronic kidney disease stage IV ? Kidney function at baseline 9. Class III obesity with BMI of 43.4 ? Complicating care weight loss advised 10. History of previous duodenal ulcer ? Patient is on PPI 11. History of microscopic colitis ? Patient is on budesonide 12. Depression with anxiety ? Patient on citalopram continue 13. Osteoporosis ? Patient is on alendronate 16. Hypokalemia ? Corrected per protocol 17. DVT prophylaxis ? Subcu heparin Time spent in the patient's overall evaluation,decision-making process, review of diagnostic data, adjustment of management, discussion with other providers, nursing nursing and ancillary staff involved in patient's care documentation, 40 Minutes
[2025-10-17] MEDS: Metoprolol(XL)Succ 50 MG Tablet PO (09:17)
[2025-10-17] MEDS: Potassium Chloride Oral Tablet 20 MEQ PO (09:18)
[2025-10-17] MEDS: Budesonide 3 MG CAPSULE.EC 6 MG PO (09:18)
[2025-10-17] MEDS: Insulin Glargine-YFGN 100 UNIT/ML Pen 12 UNIT SC (09:19)
--- NOTE | 2025-10-17 09:28 | PCM.DC.SUM ---
Providers Date of Admission: 10/16/25 Date of Discharge: 10/17/25 Primary Care Physician: Dr. Elena Mims, DO Reason For Visit: HYPOKALEMIA, SOB/WHEEZING Diagnosis Discharge Diagnosis (1) Shortness of breath: Status: Acute Code(s): R06.02 - Shortness of breath Plan Patient is a 80-year-old lady discharge to a [facility] facility following admission for respiratory failure as well as right humeral fracture for which conservative management was recommended by Ortho was brought back to the emergency department with hemoptysis. Chest x-ray did show interval improvement in previous airspace disease it was suspected patient had aspirated. Admitted to regular nursing floor for further management 1. Aspiration of blood from epistaxis ? Checks x-ray of the show improvement in previous airspace disease. Patient was monitored overnight and discharged back to her [facility] facility 2. Hypokalemia -Corrected per protocol 3. Hypomagnesemia -Corrected for protocol 4. Right humeral fracture Imaging studies demonstrated comminuted proximal humerus fracture on the right involving the surgical neck and greater tuberosity. Patient was seen in consultation by Dr. Cruz nonsurgical management recommended 5. Diabetes mellitus type II -patient's oral hypoglycemics held. Placed on long acting insulin, Accu-Cheks a.c. and at bedtime and covered with sliding scale insulin 6. Hypertension ? Blood pressure controlled, home medications continued with dose adjustment as needed 7. Anemia ? Secondary to chronic disorder monitoring H&H and transfuse if patient becomes symptomatic or hemoglobin falls below 7 8. Chronic kidney disease stage IV ? Kidney function at baseline 9. Class III obesity with BMI of 43.4 ? Complicating care weight loss advised 10. History of previous duodenal ulcer ? Patient is on PPI 11. History of microscopic colitis ? Patient is on budesonide 12. Depression with anxiety ? Patient on citalopram continue 13. Osteoporosis ? Patient is on alendronate 16. Hypokalemia ? Corrected per protocol 17. DVT prophylaxis ? Subcu heparin Time spent in the patient's overall evaluation,decision-making process, review of diagnostic data, adjustment of management, discussion with other providers, nursing nursing and ancillary staff involved in patient's care documentation, 40 Minutes Medications at Discharge Home Medications folic acid 1 mg tablet 1 mg PO DAILY@0800 SUPPLEMENT 01/21/17 calcium 600 mg (as carbonate)-vitamin D3 20 mcg (800 unit) tablet (Caltrate with Vitamin D3) 1 tab PO DAILY SUPPLEMENT 03/05/19 citalopram 20 mg tablet 20 mg PO QHS mental health 01/22/22 pentoxifylline 400 mg tablet,extended release 400 mg PO DAILY PAD 02/15/24 vitamin E 268 mg (400 unit) capsule 268 mg PO DAILY Supplement 02/15/24 ferrous sulfate 325 mg (65 mg iron) tablet (FeroSul) 325 mg PO DAILY Supplement 06/05/24 amlodipine 5 mg tablet 5 mg PO DAILY 30 days #30 tabs 01/11/25 aspirin 81 mg capsule 81 mg PO DAILY 05/04/25 pantoprazole 40 mg tablet,delayed release 40 mg PO DAILY 05/04/25 acetaminophen 325 mg tablet 650 mg (2 x 325 mg) PO Q6H PRN PRN Pain 1-10 Or Fever >100.7 #0 tabs 05/09/25 alendronate 70 mg tablet 70 mg PO QWEEK #14 tabs 09/16/25 budesonide 3 mg capsule,delayed,extended release 6 mg PO QAM Stomach Lining 09/18/25 metoprolol succinate 50 mg tablet,extended release 24 hr 50 mg PO DAILY 09/18/25 insulin glargine-yfgn 100 unit/mL (3 mL) subcutaneous pen 12 unit subcut BID 10/16/25 albuterol sulfate 2.5 mg/3 mL (0.083 %) solution for nebulization 2.5 mg (3 mL) inhalation Q2H PRN PRN Sob &/Or Wheezing #0 mL 10/17/25 furosemide 40 mg tablet (Lasix) 40 mg PO DAILY #30 tabs 10/17/25 guaifenesin 1,200 mg tablet, extended release 12 hr (Mucus Relief ER) 1,200 mg PO BID #0 tabs 10/17/25 magnesium oxide 400 mg PO DAILY #60 caps 10/17/25 potassium chloride 20 mEq tablet,extended release(part/cryst) 20 meq PO BIDCM #60 tabs 10/17/25 Physical Exam Narrative GENERAL: cooperative HEENT: Atraumatic; normocephalic EYES; Anicteric, Normal Conjunctiva NECK; supple, normal thyroid, RESPIRATORY: Diminished to auscultation CARDIOVASCULAR: Regular S1 S2, GI: soft, normoactive bowel sounds, : No Renal angle tenderness; EXTREMITIES: No edema, no clubbing, MUSCULOSKELETAL: Right significant swelling of the forearm NEURO: Awake; no lateralizing signs. SKIN: No Rash PSYCH; Flat affect Weight / BMI Weight Weight: 104.3 kg Body Mass Index (BMI) 43.4 ABG / Lab / Microbiology Data 10/17/25 06:01 10/17/25 06:01 Laboratory: Laboratory Results - last 24 hr 10/16/25 13:00: WBC 14.7 H, RBC 3.37 L, Hgb 9.7 L, Hct 30.8 L, MCV 91.4, MCH 28.8, MCHC 31.5 L, RDW Std Deviation 51.8 H, RDW Coeff of Juan Diego 15.6 H, Plt Count 349, MPV 9.7, Immature Gran % (Auto) 2.500 H, Neut % (Auto) 73.7 H, Lymph % (Auto) 6.7 L, [place] % (Auto) 11.5 H, Eos % (Auto) 5.0, Baso % (Auto) 0.6, Absolute Neuts (auto) 10.8 H, Absolute Lymphs (auto) 0.99, Nucleated RBC % 0, Differential Comment COMMENT, Sodium 143, Potassium 3.0 L, Chloride 106, Carbon Dioxide 23.2, Anion Gap 14, BUN 35 H, Creatinine 3.54 H, Estim Creat Clear Calc 14.32 L, Est GFR (MDRD) Non-Af 13 L, BUN/Creatinine Ratio 9.9 L, Glucose 128 H, Lactic Acid < 1.0, Calcium 8.1, Magnesium 1.2 L, Total Bilirubin 0.46, AST 14, ALT < 5, Alkaline Phosphatase 97, Troponin T High Sens 67 H*, NT pro BNP II 5886 H, Total Protein 6.4, Albumin 3.2 L, Globulin 3.3, Albumin/Globulin Ratio 1.0 10/16/25 15:29: Troponin T Hi Sens 2 Hr 62 H* 10/16/25 22:12: POC Glucose 234 H 10/17/25 06:01: WBC 10.2, RBC 2.82 L, Hgb 8.1 L, Hct 25.4 L, MCV 90.1, MCH 28.7, MCHC 31.9 L, RDW Std Deviation 51.8 H, RDW Coeff of Juan Diego 15.7 H, Plt Count 308, MPV 9.2, Immature Gran % (Auto) 2.200 H, Neut % (Auto) 90.4 H, Lymph % (Auto) 4.9 L, [place] % (Auto) 2.3, Eos % (Auto) 0.0, Baso % (Auto) 0.2, Absolute Neuts (auto) 9.2 H, Absolute Lymphs (auto) 0.50 L, Nucleated RBC % 0, Sodium 138, Potassium 3.5, Chloride 106, Carbon Dioxide 18.9 L, Anion Gap 14, BUN 40 H, Creatinine 3.58 H, Estim Creat Clear Calc 14.16 L, Est GFR (MDRD) Non-Af 12 L, BUN/Creatinine Ratio 11.2, Glucose 216 H, Calcium 7.7 10/17/25 06:29: POC Glucose 211 H Microbiology: Microbiology 10/17/25 00:25 Stool Clostridioides difficile (PCR) - Final 10/16/25 19:35 Mucosa - Nasopharyngeal Respiratory Panel (PCR) - Final 10/16/25 13:48 Mucosa - Nose SARS-CoV-2, Influenza & RSV (PCR) - Final Radiography Diagnostic Testing: Radiology Impression Chest X-Ray 10/16/25 13:55 IMPRESSION: The study is limited by some degree of hypoinflation, and by significant patient motion on the lateral view. Interval resolution of the previous right basilar atelectasis. Interval improvement of the left basilar atelectasis/airspace disease is noted. Interval removal of the right PICC line and endotracheal tube, as well as the nasogastric tube. No evidence of pulmonary edema. Questionable very small left pleural effusion. No pneumothorax is seen. No interval osseous change noted. The displaced proximal right humeral fracture is again seen. The cardiomediastinal silhouette is unchanged, without evidence of cardiomegaly. Reading Location: [facility]--1 D/C Instructions DC O2, CPAP, BIPAP Needs Home O2 Discharge instructions: No Patient's Goals Of Care - F/U Goals Reviewed Goals of care reviewed with patient: Yes - No change Meaningful Use Info Meaningful Use Meaningful Use Diagnoses (Choose all that apply): None applicable Discharge Plan Admission Admit Date/Time: 10/16/25 17:48 Attending Provider: Hamlet Mujica Primary Care Provider: Elena Mims Consulting Providers: Marjorie Gallardo Discharge Orders/Prescriptions Prescriptions: New albuterol sulfate 2.5 mg /3 mL (0.083 %) Solution For Nebulization 2.5 mg inhalation Q2H PRN PRN (Reason: Sob &/Or Wheezing) Qty: 0 0RF guaifenesin [Mucus Relief ER] 1,200 mg Tablet Extended Release 12hr 1,200 mg PO BID Qty: 0 0RF magnesium oxide 400 mg magnesium capsule 400 mg PO DAILY Qty: 60 0RF furosemide [Lasix] 40 mg tablet 40 mg PO DAILY Qty: 30 0RF Continued folic acid 1 MG tablet 1 mg PO DAILY@0800 calcium carbonate-vitamin D3 [Caltrate with Vitamin D3] 1 TAB tablet 1 tab PO DAILY citalopram 20 mg tablet 20 mg PO QHS ferrous sulfate [FeroSul] 325 mg (65 mg iron) tablet 325 mg PO DAILY amlodipine 5 mg Tablet 5 mg PO DAILY 30 Days Qty: 30 0RF aspirin 81 mg capsule 81 mg PO DAILY pantoprazole 40 mg Tablet,Delayed Release (Dr/Ec) 40 mg PO DAILY acetaminophen 325 mg Tablet 650 mg PO Q6H PRN PRN (Reason: Pain 1-10 Or Fever >100.7) Qty: 0 0RF pentoxifylline 400 mg tablet extended release 400 mg PO DAILY vitamin E 268 mg (400 unit) capsule 268 mg PO DAILY metoprolol succinate 50 mg tablet extended release 24 hr 50 mg PO DAILY budesonide 3 mg capsule,delayed,extend.release 6 mg PO QAM insulin glargine-yfgn 100 unit/mL (3 mL) insulin pen 12 unit subcut BID alendronate 70 mg tablet 70 mg PO QWEEK Qty: 14 3RF Changed potassium chloride 20 mEq tablet,ER particles/crystals 20 meq PO BIDCM Qty: 60 0RF Referrals / Follow Up: Elena Mims DO [Primary Care Provider, Internal Medicine] Disposition Disposition (needs filled in before D/C Order can be placed): [facility] Facility Charges/Coding Visit Charges Inpatient E&M: 76819 Disch Hosp >30min
--- NOTE | 2025-10-17 09:34 | PCM.TXEXTCAR ---
Diet Diet Order/Speech Therapy: INPATIENT Hospital Diet / Speech Therapy Order(s) 10/16/25 18:32 Diet: Cardiac - Heart Healthy Food consistency:: Regular Liquid Consistency:: Regular/Thin Routine Orders/Code Status Routine Lab Work: BMP (On 10/21/2025) Code Status: DNRCC-A DC O2, CPAP, BIPAP needs Home O2 Discharge instructions: No Therapies Physical Therapy: Eval and Treat Occupational Therapy: Eval and Treat Problem/Diagnosis (1) Shortness of breath: Status: Acute Code(s): R06.02 - Shortness of breath Plan Patient is a 80-year-old lady discharge to a long-term facility following admission for respiratory failure as well as right humeral fracture for which conservative management was recommended by Ortho was brought back to the emergency department with hemoptysis. Chest x-ray did show interval improvement in previous airspace disease it was suspected patient had aspirated. Admitted to regular nursing floor for further management 1. Aspiration of blood from epistaxis ? Checks x-ray of the show improvement in previous airspace disease. Patient was monitored overnight and discharged back to her long-term facility 2. Hypokalemia -Corrected per protocol 3. Hypomagnesemia -Corrected for protocol 4. Right humeral fracture Imaging studies demonstrated comminuted proximal humerus fracture on the right involving the surgical neck and greater tuberosity. Patient was seen in consultation by Dr. Cruz nonsurgical management recommended 5. Diabetes mellitus type II -patient's oral hypoglycemics held. Placed on long acting insulin, Accu-Cheks a.c. and at bedtime and covered with sliding scale insulin 6. Hypertension ? Blood pressure controlled, home medications continued with dose adjustment as needed 7. Anemia ? Secondary to chronic disorder monitoring H&H and transfuse if patient becomes symptomatic or hemoglobin falls below 7 8. Chronic kidney disease stage IV ? Kidney function at baseline 9. Class III obesity with BMI of 43.4 ? Complicating care weight loss advised 10. History of previous duodenal ulcer ? Patient is on PPI 11. History of microscopic colitis ? Patient is on budesonide 12. Depression with anxiety ? Patient on citalopram continue 13. Osteoporosis ? Patient is on alendronate 16. Hypokalemia ? Corrected per protocol 17. DVT prophylaxis ? Subcu heparin Time spent in the patient's overall evaluation,decision-making process, review of diagnostic data, adjustment of management, discussion with other providers, nursing nursing and ancillary staff involved in patient's care documentation, 40 Minutes Allergies/Procedures Done in Hospital Allergies chlorhexidine Allergy (Verified 10/16/25 12:48) Unknown Iodinated Contrast Media (CONTRASTS) Allergy (Verified 10/16/25 12:48) Other iodine Allergy (Verified 10/16/25 12:48) Unknown latex Allergy (Verified 10/16/25 12:48) Rash vancomycin Adverse Reaction (Intermediate, Verified 10/16/25 12:48) Other Patient states she had hallucinations while taking Type of Care/Length of Stay Estimated LOS: Convalescent Care Less Than 30 days Type of Care Needed: Skilled Rehab Potential: Good Prognosis: Good Additional Orders/Day of Discharge Day of Discharge: 10/17/25 Discharge Plan Admission Admit Date/Time: 10/16/25 17:48 Attending Provider: Hamlet Mujica Primary Care Provider: Elena Mims Consulting Providers: Marjorie Gallardo Discharge Orders/Prescriptions Prescriptions: New albuterol sulfate 2.5 mg /3 mL (0.083 %) Solution For Nebulization 2.5 mg inhalation Q2H PRN PRN (Reason: Sob &/Or Wheezing) Qty: 0 0RF guaifenesin [Mucus Relief ER] 1,200 mg Tablet Extended Release 12hr 1,200 mg PO BID Qty: 0 0RF magnesium oxide 400 mg magnesium capsule 400 mg PO DAILY Qty: 60 0RF furosemide [Lasix] 40 mg tablet 40 mg PO DAILY Qty: 30 0RF Continued folic acid 1 MG tablet 1 mg PO DAILY@0800 calcium carbonate-vitamin D3 [Caltrate with Vitamin D3] 1 TAB tablet 1 tab PO DAILY citalopram 20 mg tablet 20 mg PO QHS ferrous sulfate [FeroSul] 325 mg (65 mg iron) tablet 325 mg PO DAILY amlodipine 5 mg Tablet 5 mg PO DAILY 30 Days Qty: 30 0RF aspirin 81 mg capsule 81 mg PO DAILY pantoprazole 40 mg Tablet,Delayed Release (Dr/Ec) 40 mg PO DAILY acetaminophen 325 mg Tablet 650 mg PO Q6H PRN PRN (Reason: Pain 1-10 Or Fever >100.7) Qty: 0 0RF pentoxifylline 400 mg tablet extended release 400 mg PO DAILY vitamin E 268 mg (400 unit) capsule 268 mg PO DAILY metoprolol succinate 50 mg tablet extended release 24 hr 50 mg PO DAILY budesonide 3 mg capsule,delayed,extend.release 6 mg PO QAM insulin glargine-yfgn 100 unit/mL (3 mL) insulin pen 12 unit subcut BID alendronate 70 mg tablet 70 mg PO QWEEK Qty: 14 3RF Changed potassium chloride 20 mEq tablet,ER particles/crystals 20 meq PO BIDCM Qty: 60 0RF Referrals / Follow Up: Elena Mims DO [Primary Care Provider, Internal Medicine] Disposition Disposition (needs filled in before D/C Order can be placed): [facility]
--- NOTE | 2025-10-17 09:57 | PHA.DC.MR.R ---
Pharmacy [place] Med Reconciliation Pharmacy Service has performed discharge medication reconciliation for this patient. The patient's discharge medication list was reviewed for discrepancies and discrepancies were resolved. Medications at Discharge Home Medications folic acid 1 mg tablet 1 mg PO DAILY@0800 SUPPLEMENT 01/21/17 calcium 600 mg (as carbonate)-vitamin D3 20 mcg (800 unit) tablet (Caltrate with Vitamin D3) 1 tab PO DAILY SUPPLEMENT 03/05/19 citalopram 20 mg tablet 20 mg PO QHS mental health 01/22/22 pentoxifylline 400 mg tablet,extended release 400 mg PO DAILY PAD 02/15/24 vitamin E 268 mg (400 unit) capsule 268 mg PO DAILY Supplement 02/15/24 ferrous sulfate 325 mg (65 mg iron) tablet (FeroSul) 325 mg PO DAILY Supplement 06/05/24 amlodipine 5 mg tablet 5 mg PO DAILY 30 days #30 tabs 01/11/25 aspirin 81 mg capsule 81 mg PO DAILY 05/04/25 pantoprazole 40 mg tablet,delayed release 40 mg PO DAILY 05/04/25 acetaminophen 325 mg tablet 650 mg (2 x 325 mg) PO Q6H PRN PRN Pain 1-10 Or Fever >100.7 #0 tabs 05/09/25 alendronate 70 mg tablet 70 mg PO QWEEK #14 tabs 09/16/25 budesonide 3 mg capsule,delayed,extended release 6 mg PO QAM Stomach Lining 09/18/25 metoprolol succinate 50 mg tablet,extended release 24 hr 50 mg PO DAILY 09/18/25 insulin glargine-yfgn 100 unit/mL (3 mL) subcutaneous pen 12 unit subcut BID 10/16/25 albuterol sulfate 2.5 mg/3 mL (0.083 %) solution for nebulization 2.5 mg (3 mL) inhalation Q2H PRN PRN Sob &/Or Wheezing #0 mL 10/17/25 furosemide 40 mg tablet (Lasix) 40 mg PO DAILY #30 tabs 10/17/25 guaifenesin 1,200 mg tablet, extended release 12 hr (Mucus Relief ER) 1,200 mg PO BID #0 tabs 10/17/25 magnesium oxide 400 mg PO DAILY #60 caps 10/17/25 potassium chloride 20 mEq tablet,extended release(part/cryst) 20 meq PO BIDCM #60 tabs 10/17/25
--- NOTE | 2025-10-17 10:15 | CASEMGMT ---
Discharge Planning Updates sent to [facility] with note that pt will return today. Kortney Roberto DC Planning Asst.
--- NOTE | 2025-10-17 10:21 | CASEMGMT ---
Social Work Physician updated and pt is ready for discharge today.? SW met with pt and they are agreeable to discharge plan as stated above.? DCA notified of discharge readiness. DCA to complete all final arrangements and notifications. Disposition: [facility], return to skilled level of care ANJELICA Crooks
--- NOTE | 2025-10-17 10:58 | CASEMGMT ---
Discharge Planning Discharge orders, signed med list, and transport time sent via [facility] to [facility]. Physicians will transport pt by wheelchair at 12:45. Nursing, SW, pt, and her niece (Letha) updated. Kortney Roberto DC Planning Asst.
--- NOTE | 2025-10-17 11:00 | NURSING ---
called [facility] and informed them that pt would be coming back to them today.
== END 2025-10-17 12:50 | disposition skilled nursing facility (03) ==
LOC: ED 17:14 → MS3 17:40
PROVIDERS: Admitting Provider Internal Medicine; Emergency Provider Surgery; PCP Internal Medicine; Visit Provider Internal Medicine
DX: T17.998A Other foreign object in respiratory tract, part unspecified causing other injury, initial encounter (principal); N18.4 Chronic kidney disease, stage 4 (severe); E66.813 Obesity, class 3; Z68.41 Body mass index [BMI] 40.0-44.9, adult; E11.22 Type 2 diabetes mellitus with diabetic chronic kidney disease; E87.6 Hypokalemia; D63.8 Anemia in other chronic diseases classified elsewhere; I12.9 Hypertensive chronic kidney disease with stage 1 through stage 4 chronic kidney disease, or unspecified chronic kidney disease; Z79.82 Long term (current) use of aspirin; K21.9 Gastro-esophageal reflux disease without esophagitis; S42.201D Unspecified fracture of upper end of right humerus, subsequent encounter for fracture with routine healing; E78.5 Hyperlipidemia, unspecified; X58.XXXD Exposure to other specified factors, subsequent encounter; Z79.899 Other long term (current) drug therapy; R60.0 Localized edema; E83.42 Hypomagnesemia; R04.0 Epistaxis; M81.0 Age-related osteoporosis without current pathological fracture; F41.8 Other specified anxiety disorders
CPT/HCPCS: 71046; 80048; 80053; 82962; 83605; 83735; 83880; 84484; 85025; 87493; 87631; 87633; 93005; 94640; 94668; 96365; 96366; 96372; 96375; 97162; 97166; 99221; 99285; A4216; G0378

== ENCOUNTER 2025-10-29 10:53 | Emergency (ER) | payer MEDICARE, SELFPAY ==
[2025-10-29 10:54] VITALS: BP 149/67; PULSE 62; RESP 17; TEMP 36.6; O2SAT 98; BMI 40.1
--- NOTE | 2025-10-29 11:17 | EKG12_ITS ---
Test Reason : O Blood Pressure : */* mmHG Vent. Rate : 67 BPM Atrial Rate : 67 BPM P-R Int : 214 ms QRS Dur : 86 ms QT Int : 410 ms P-R-T Axes : 69 -24 41 degrees QTcB Int : 433 ms Sinus rhythm with 1st degree A-V block Cannot rule out Anterior infarct (cited on or before 18-Sep-2025) Abnormal ECG Confirmed by Hamlet Hernandez [id number]), editor trade journal ANDREW LINDA ([id number]) on 11/03/2025 9:10:01 AM Referred By: ERICA Confirmed By: Hamlet Hernandez
--- NOTE | 2025-10-29 11:38 | EX.ED.DYSGE1 ---
HPI History of Present Illness Chief Complaint: Abn Labs Narrative Narrative: Patient is a 80-year-old female with a past medical history of anemia, chronic kidney disease, hypertension, dyslipidemia, hypertension, type 2 diabetes who presented to the emergency department with a chief complaint of elevated potassium. Patient states that she had blood work obtained this morning and noted that her potassium was high therefore they sent her here to be further evaluated as they could not get the medication out of the machine. Patient otherwise has no complaints. [facility] Medical History Microscopic colitis Anemia CKD (chronic kidney disease) Osteoarthritis History of irritable colon Essential hypertension Dyslipidemia Anxiety Diabetes Kidney disease GI bleed Non-smoker Upper GI bleed Duodenal ulcer Candidiasis of breast History of anemia History of hypertension History of chronic kidney disease History of hyperlipidemia History of diabetes insipidus Candidal intertrigo Stage 3b chronic kidney disease (CKD) Osteoporosis Hyperlipidemia Anemia Hypertension Lymphedema Morbid obesity History of gastroesophageal reflux (GERD) Type II diabetes mellitus Home Medications Medication Instructions Recorded Last Taken Type folic acid 1 mg tablet 1 mg PO DAILY@0800 SUPPLEMENT 01/21/17 10/16/25 09:00 History calcium 600 mg (as 1 tab PO DAILY SUPPLEMENT 03/05/19 10/16/25 09:00 History carbonate)-vitamin D3 20 mcg (800 unit) tablet (Caltrate with Vitamin D3) citalopram 20 mg tablet 20 [address] [facility] 01/22/22 10/15/25 21:00 History pentoxifylline 400 mg 400 mg PO DAILY PAD 02/15/24 10/16/25 09:00 History tablet,extended release ferrous sulfate 325 mg (65 mg 325 mg PO DAILY Supplement 06/05/24 10/16/25 09:00 History iron) tablet (FeroSul) aspirin 81 mg capsule 81 mg PO DAILY 05/04/25 10/16/25 09:00 History pantoprazole 40 mg tablet,delayed 40 mg PO DAILY 05/04/25 10/16/25 09:00 History release budesonide 3 mg 6 mg PO QAM Stomach Lining 09/18/25 10/16/25 09:00 History capsule,delayed,extended release metoprolol succinate 50 mg 50 mg PO DAILY 09/18/25 10/16/25 09:00 History tablet,extended release 24 hr insulin glargine-yfgn 100 unit/mL 5 unit subcut QHS 10/16/25 10/16/25 09:00 History (3 mL) subcutaneous pen albuterol sulfate 2.5 mg/3 mL 2.5 mg (3 mL) inhalation Q2H PRN 10/17/25 Unknown Rx (0.083 %) solution for nebulization PRN Sob &/Or Wheezing #0 mL furosemide 40 mg tablet (Lasix) 40 mg PO DAILY #30 tabs 10/17/25 Unknown Rx guaifenesin 1,200 mg tablet, 1,200 mg PO BID #0 tabs 10/17/25 Unknown Rx extended release 12 hr (Mucus Relief ER) magnesium oxide 400 mg PO DAILY #60 caps 10/17/25 Unknown Rx potassium chloride 20 mEq 20 meq PO BIDCM #60 tabs 10/17/25 10/16/25 09:00 Rx tablet,extended release(part/cryst) acetaminophen 500 mg capsule 1,000 mg (2 x 500 mg) PO Q8H 10 10/28/25 Unknown Rx days #60 caps oxycodone 5 mg tablet 5 mg PO Q8H PRN pain 7 days #21 10/28/25 Unknown Rx tabs albuterol sulfate 2.5 mg/3 mL 2.5 mg inhalation TID 10/29/25 Unknown History (0.083 %) solution for nebulization amlodipine 5 mg tablet 10 mg PO DAILY 10/29/25 Unknown History nystatin 100,000 unit/gram topical 1 applic topical BID 10/29/25 Unknown History powder (Nystop) Allergy/AdvReac Type Severity Reaction Status Date / Time chlorhexidine Allergy Unknown Verified 10/29/25 10:58 Iodinated Contrast Media Allergy Other Verified 10/29/25 10:58 (CONTRASTS) iodine Allergy Unknown Verified 10/29/25 10:58 latex Allergy Rash Verified 10/29/25 10:58 vancomycin AdvReac Intermediate Other Verified 10/29/25 10:58 Family History Other Diabetes Surgical History History of elbow surgery History of tonsillectomy and adenoidectomy 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 Social History household members: none housing: care home Smoking Status: Never smoker alcohol intake: never substance use type: does not use ROS ROS ED ROS Narrative Constitutional: Denies headache, lightness, dizziness Cardiovascular: Denies chest pain Respiratory: Denies shortness of breath Abdomen: States that she has chronic diarrhea this is not new denies any abdominal pain nausea vomiting : Denies urinary symptoms Neurological: Denies any numbness, weakness, tingling Musculoskeletal: Denies back pain Skin: Denies any rashes or lesions EXAM Physical Exam Narrative Exam Narrative: General: Patient is lying in bed rest comfortably not appear to be in acute distress Head: Atraumatic, normocephalic Eyes: PERRL bilaterally, EOMI bilaterally, no conjunctival injection noted Neck: Soft, supple, trachea midline Cardiovascular: Regular rate and rhythm Respiratory: Clear to auscultation bilaterally Abdomen: Soft, nondistended, nontender to palpation Extremities: +4/5 strength noted in the bilateral lower extremity in the left upper extremity. Patient has sling in place for a shoulder fracture she states Neurological: Patient following commands knew that she was at [facility] year is 2024 Skin: Warm, dry, tact no rashes or lesions noted Const Vital Signs: 10/29/25 10:54 10/29/25 10:58 10/29/25 12:53 Temperature 97.8 F Temperature Source Oral Pulse Rate 62 64 Respiratory Rate 17 14 Respiratory Effort Normal Non-Labored Respiratory Pattern Normal Blood Pressure 149/67 H 123/69 H Blood Pressure Mean 94 87 Pulse Ox 98 98 Oxygen Delivery Method Room Air Room Air 10/29/25 14:00 Temperature Temperature Source Pulse Rate 62 Respiratory Rate 16 Respiratory Effort Respiratory Pattern Blood Pressure 129/57 H Blood Pressure Mean 81 Pulse Ox 100 Oxygen Delivery Method MDM MDM MDM Narrative Medical decision making narrative: Patient is a 80-year-old female who presented to the emergency department with a chief complaint of elevated potassium in the outpatient setting. On the differential diagnose includes but not limited to hyperkalemia, laboratory air. Patient will have blood work repeated and be reevaluated Patient CBC reviewed and showed a white blood count 11, hemoglobin is noted to be 9.4, plate count was noted be 333. Patient's sodium was 132, repeat potassium was noted be 6.1, creatinine was elevated to 3.72 she has underlying chronic kidney disease GFR is stable at 12. Patient calcium normal at 8.9, AST and ALT are 10 and 8 respectively. Patient's EKG reviewed which showed sinus rhythm with evidence first-degree AV block with a VA interval 214 heart rate was noted be 67 bpm. Patient was given calcium gluconate, insulin and dextrose her potassium will be repeated. Patient case was signed out to oncoming provider to follow-up on repeat labs see addendum for details. Lab Data Labs: Laboratory Results - last 24 hr 10/29/25 11:32 WBC 11.0 RBC 3.30 L Hgb 9.4 L Hct 30.4 L MCV 92.1 MCH 28.5 MCHC 30.9 L RDW Std Deviation 51.8 H RDW Coeff of [place] 15.3 H Plt Count 333 MPV 9.7 Immature Gran % (Auto) 0.900 Neut % (Auto) 73.2 H Lymph % (Auto) 11.4 L [place] % (Auto) 10.4 H Eos % (Auto) 3.6 Baso % (Auto) 0.5 Absolute Neuts (auto) 8.0 H Absolute Lymphs (auto) 1.25 Nucleated RBC % 0 Sodium 132 L Potassium 6.1 H* Chloride 100 Carbon Dioxide 20.3 Anion Gap 12 BUN 45 H Creatinine 3.72 H Estim Creat Clear Calc 13.02 L Est GFR (MDRD) Non-Af 12 L BUN/Creatinine Ratio 12.1 Glucose 152 H Calcium 8.9 Total Bilirubin 0.29 AST 10 ALT 8 Alkaline Phosphatase 80 Total Protein 6.6 Albumin 3.7 Globulin 2.9 Albumin/Globulin Ratio 1.3 Discharge Plan Triage Chief Complaint: Abn Labs ED Provider: Brian Robledo Dx/Rx/DC Orders Clinical Impression: Proximal humerus fracture, CKD (chronic kidney disease) stage 4, GFR 15-29 ml/min, Hyperkalemia Prescriptions: No Action oxycodone 5 mg tablet 5 mg PO Q8H PRN (Reason: pain) 7 Days Qty: 21 0RF Rx Instructions: Take 1 tablet every 8 hrs prn moderate to severe pain acetaminophen 500 mg capsule 1,000 mg PO Q8H 10 Days Qty: 60 1RF Rx Instructions: Take 2 capsules 3x/daily every 8 hrs folic acid 1 MG tablet 1 mg PO DAILY@0800 calcium carbonate-vitamin D3 [Caltrate with Vitamin D3] 1 TAB tablet 1 tab PO DAILY citalopram 20 mg tablet 20 mg PO QHS ferrous sulfate [FeroSul] 325 mg (65 mg iron) tablet 325 mg PO DAILY aspirin 81 mg capsule 81 mg PO DAILY pantoprazole 40 mg Tablet,Delayed Release (Dr/Ec) 40 mg PO DAILY albuterol sulfate 2.5 mg /3 mL (0.083 %) solution for nebulization 2.5 mg inhalation TID amlodipine 5 mg Tablet 10 mg PO DAILY nystatin [Nystop] 100,000 unit/gram powder 1 applic topical BID pentoxifylline 400 mg tablet extended release 400 mg PO DAILY metoprolol succinate 50 mg tablet extended release 24 hr 50 mg PO DAILY budesonide 3 mg capsule,delayed,extend.release 6 mg PO QAM insulin glargine-yfgn 100 unit/mL (3 mL) insulin pen 5 unit subcut QHS albuterol sulfate 2.5 mg /3 mL (0.083 %) Solution For Nebulization 2.5 mg inhalation Q2H PRN PRN (Reason: Sob &/Or Wheezing) Qty: 0 0RF guaifenesin [Mucus Relief ER] 1,200 mg Tablet Extended Release 12hr 1,200 mg PO BID Qty: 0 0RF magnesium oxide 400 mg magnesium capsule 400 mg PO DAILY Qty: 60 0RF furosemide [Lasix] 40 mg tablet 40 mg PO DAILY Qty: 30 0RF potassium chloride 20 mEq tablet,ER particles/crystals 20 meq PO BIDCM Qty: 60 0RF Primary Care Provider: Elena Mims Referrals: Elena Mims DO [Primary Care Provider, Internal Medicine] Print Language: [place]
[2025-10-29 11:39] LABS: Hematocrit 30.4 % (37-47); Hemoglobin 9.4 g/dL (12.0-15.0); Immature Granulocytes Count 0.100 X10^3/uL (0.0-0.0); Mean Corp Hgb Conc 30.9 g/dL (32-36); Mean Corpuscular Volume 92.1 fL (81-99); Mean Platelet Vol. 9.7 fl (6.2-12.0); NRBC Flagged by Analyzer 0 % (0-5); Platelet Count 333 K/mm3 (150-450); RBC Distribution Width CV 15.3 % (11.6-14.6); RBC Distribution Width SD 51.8 fl (35.1-43.9); Red Blood Count 3.30 M/mm3 (4.2-5.4); White Blood Count 11.0 K/mm3 (4.4-11.0)
[2025-10-29 12:22] LABS: AST(SGOT) 10 U/L (<=31); Alanine Aminotransfer ALT/SGPT 8 U/L (<=34); Albumin, Serum 3.7 g/dL (3.4-4.8); Alkaline Phosphatase 80 U/L (35-104); Anion Gap 12 (7-18); BUN 45 mg/dL (4-19); BUN/Creat Ratio 12.1 RATIO (10-20); Calcium,Total 8.9 mg/dL (7.6-11.0); Carbon Dioxide 20.3 mmol/L (20.0-29.0); Chloride 100 mmol/L (96-106); Estimated Creatinine Clearance 13.02 ml/min (50-250); Globulin 2.9 g/dL (2.2-4.2); Glucose 152 mg/dL (70-99); Potassium 6.1 mmol/L (3.5-5.1)
[2025-10-29 12:53] VITALS: BP 123/69; PULSE 64; RESP 14; O2SAT 98
[2025-10-29] MEDS: Insulin Lispro 10 UNIT in Syringe 0 ML 6 UNIT IV (13:31)
[2025-10-29] MEDS: Calcium Gluconate IV 2 GM in 0.9% Normal Saline (100mL Bag) 100 ML IV (13:32)
[2025-10-29 14:00] VITALS: BP 129/57; PULSE 62; RESP 16; O2SAT 100
[2025-10-29] MEDS: 0.9% Normal Saline (1000mL) 1,000 ML 999 ML IV (15:50)
[2025-10-29 16:00] VITALS: BP 146/66; PULSE 66; RESP 18; O2SAT 97
[2025-10-29 17:32] LABS: Anion Gap 11 (7-18); BUN 44 mg/dL (4-19); BUN/Creat Ratio 12.2 RATIO (10-20); Calcium,Total 9.4 mg/dL (7.6-11.0); Carbon Dioxide 20.1 mmol/L (20.0-29.0); Chloride 103 mmol/L (96-106); Estimated Creatinine Clearance 13.34 ml/min (50-250); Glucose 82 mg/dL (70-99); Potassium 5.5 mmol/L (3.5-5.1)
--- NOTE | 2025-10-29 18:00 | ED.RN ---
report called to [facility] and waiting on transport
[2025-10-29 18:17] VITALS: BP 146/56; PULSE 67; RESP 18; TEMP 36.6; O2SAT 100
[2025-10-29 20:18] VITALS: BP 190/85; PULSE 68; RESP 16; TEMP 36.6; O2SAT 96
== END 2025-10-29 20:23 | disposition home or self-care (01) ==
PROVIDERS: Emergency Provider Emergency Medicine; PCP Internal Medicine; Visit Provider Emergency Medicine
DX: E11.22 Type 2 diabetes mellitus with diabetic chronic kidney disease (principal); N18.4 Chronic kidney disease, stage 4 (severe); Z79.4 Long term (current) use of insulin; I12.9 Hypertensive chronic kidney disease with stage 1 through stage 4 chronic kidney disease, or unspecified chronic kidney disease; S42.202A Unspecified fracture of upper end of left humerus, initial encounter for closed fracture; E87.5 Hyperkalemia
CPT/HCPCS: 80048; 80053; 85025; 93005; 96365; 96366; 96375; 99285; A4216; J0612